=== PATIENT | male | born 1945 | race Caucasian/White ===

== ENCOUNTER 2023-09-26 15:59 | Inpatient (IN) | payer MEDICARE, BC, SELFPAY ==
[2023-09-26] VITALS (13 sets, daily range): BP systolic 57–185; BP diastolic 71–96; BMI 30.8; BMI 29.1
--- NOTE | 2023-09-26 09:41 | ED.GENMED ---
History of Present Illness
<Mohini Daniels SIZING MACHINE OPERATOR - Last Filed: 09/26/23 17:50>
General
Chief Complaint: Breathing Problem
Source: patient and spouse
Exam Limitations: none
Time Seen by Provider: 09/26/23 09:17
Nursing documentation reviewed up to this point in time: agreed with
Travel History
Have you had any contact with someone who has COVID-19?: No
Do you have any symptoms of coronavirus? Fever > 100 degrees, chills, cough, shortness of breath, sore throat, loss of taste or smell, muscle aches, or headache?: No
History of Present Illness
History of Present Illness:
78 yo male with h/o Hyponatremia (on fluid restriction and Na 500 mg daily), HTN, Hypothyroid, Bullous Pemphigoid on chronic steroids (down to 5 mg daily), here for 4 days of increasing SOB and swelling of legs and abdomen, nausea but no vomiting.
Denies CP. Denies fever/chills. Appetite has been good.
One week ago PCP stopped his Prednisone 5 mg and within 24 hours pt felt SOB, nauseous, fatigued so started back on Prednisone 5 mg daily 3 days ago and increasing swelling legs, abdomen with 6 lb weight gain since. Denies abdominal pain. denies
back pain. Denies headache or confusion. Denies joint pain.
Past History
<Mohini Daniels SIZING MACHINE OPERATOR - Last Filed: 09/26/23 17:50>
Past History
ED Past Medical History: HTN, Seizures (Pt had ONE seizure years ago and found to be significantly hyponatremic. Takes Na tablets daily and is water restricted since.), Hypothyroidism and Other (bullous pemphigous.)
ED Past Surgical History: Tonsilectomy
Social History
Tobacco: Former smoker
Alcohol: Occasional
Drug: None
Personal:
Living: with family
Employment: Retired
Family History
Family History: Other (Noncontributory)
Review of Systems
<Mohini V. Frances, SIZING MACHINE OPERATOR - Last Filed: 09/26/23 17:50>
Review of Systems
Allergies reviewed?: Yes
All Other Systems: ROS reviewed and negative except as documented in HPI and ROS
Constitutional: Reports fatigue; Denies fever or chills
EENT: Denies sore throat or other
Respiratory: Reports trouble breathing (dyspnea on exertion worsening past 4 days); Denies cough or hemoptysis
Cardiac: Reports no symptoms
ABD/GI: Reports nausea; Denies abdominal pain (feels bloated), vomiting, diarrhea, constipated, bloody stools, black stools or anorexia
: Reports no symptoms
Musculoskeletal: Reports edema
Skin: Reports no symptoms
Neurological: Reports no symptoms
Phy Exam
<Mohini V. Day, SIZING MACHINE OPERATOR - Last Filed: 09/26/23 17:50>
Physical Exam
Physical Exam:
GENERAL: No acute distress. A&Ox3.
CONSTITUTIONAL: Afebrile.
EYES: Clear, conjunctivae normal
ENMT: moist mucus membranes, Pharynx nl
RESPIRATORY: Regular respirations, nonlabored, lungs clear.
CARDIOVASCULAR: Regular rate and rhythm, no murmurs, no rubs.
GI: Soft, distended, nontender, normal BS
MUSCULOSKELETAL: Moves with ease. Well perfused. Legs are significantly swollen, +2 pitting. Distal neurovascular intact
SKIN: Warm, dry, pink
PSYCH: Normal mood and affect. Well kept, interactive and appropriate
NEUROLOGIC: Awake, alert and oriented. No focal neurological deficits
Scores
<Mohini V. Day, SIZING MACHINE OPERATOR - Last Filed: 09/26/23 17:50>
Heart Failure Risk
Heart Failure Risk Score: Not Applicable
Course
<Mohini V. Day, SIZING MACHINE OPERATOR - Last Filed: 09/26/23 17:50>
Orders/Labs/Results
Orders:
Orders
09/26/23 09:38
IV Insert/Care/Rem.- Treatment PRN
09/26/23 09:39
Electrocardiogram (*1) Stat
Reason for Study: Other
Other Reason for Exam: chest pain
EKG- Treatment ONCE
CR Chest - 2 Views Urgent
Comment:
Reason For Exam: SOB
09/26/23 10:19
Complete Blood Count/With Diff Urgent
Comprehensive Metabolic Panel Urgent
Cortisol, Random Urgent
NT-proBNP Urgent
Troponin I Urgent
09/26/23 13:13
Consult Interventional Radiology [[facility] CONSULT] Urgent
Consulting Provider: Eamon England
Was physician already notified: Yes
Reason for consult: Large L pleural effusion
09/26/23 13:47
[facility] Cytology Routine
Date Specimen was Collected: 09/26/23
Time Specimen was Collected: 14:33
Source: Pleural Fluid, Left
Clinical Impression: Large left pleural effusion hx chronic steroids bullous pemphigoid
hyponatr
History of Malignancy: yes, colon ca
History of Radiation / Chemotherapy: none
09/26/23 14:27
CR Chest Single View Urgent
Comment:
Reason For Exam: s/p left thoracentesis
09/26/23 14:35
Body Fluid Albumin Urgent
Fluid Source: Pleural
Date Specimen was Collected: 09/26/23
Time Specimen was Collected: 14:32
Body Fluid Amylase Routine
Fluid Source: Pleural
Date Specimen was Collected: 09/26/23
Time Specimen was Collected: 14:32
Body Fluid Cell Count Urgent
What is the Body Fluid: pleural fluid
Date Specimen was Collected: 09/26/23
Time Specimen was Collected: 14:32
Body Fluid Glucose Routine
Fluid Source: Pleural
Date Specimen was Collected: 09/26/23
Time Specimen was Collected: 14:32
Body Fluid LDH Urgent
Fluid Source: Pleural
Date Specimen was Collected: 09/26/23
Time Specimen was Collected: 14:32
Body Fluid Protein Routine
Fluid Source: Pleural
Date Specimen was Collected: 09/26/23
Time Specimen was Collected: 14:32
Body Fluid Triglycerides Routine
Fluid Source: Pleural
Date Specimen was Collected: 09/26/23
Time Specimen was Collected: 14:32
Body Fluid pH Routine
Fluid Source: Pleural
Date Specimen was Collected: 09/26/23
Time Specimen was Collected: 14:32
Fluid Culture with Gram Stain Urgent
TERRELL Source: Pleural Fluid
Specimen Description:
Date Specimen was Collected: 09/26/23
Time Specimen was Collected: 14:32
09/26/23 15:34
Admit/Transfer Patient As Directed
Co-Sign Provider:
Level of Care: Inpatient admission
Assign to:: Medical/Surgical
Physician / Group: Catalino Dunbar
Diagnosis: Large Pleural Effusion Hyponatremia
Reason for Hospitalization: Large Pleural Effusion Hyponatremia
Expected length of stay greater than two midnights?: Yes
ELOS- Estimated Length of Stay in days: 2
I certify the patient meets the requirements for IP care: Yes
09/26/23 15:39
Code Status As Directed
Resuscitation Status: Full Code
09/27/23 06:00
Echo 2D MMode Color/Doppler IN AM
Reason for Study: possible heart failure
Abdomen & Abd Doppler US [US Abd W Abd Doppler] IN AM
Comment:
Reason For Exam: possible anasarca cirrhosis
Abnormal Lab Results
09/26/23
10:19
RBC 4.39 L 10^6/uL
(4.70-6.10)
Hct 36.9 L %
(39.0-52.0)
MPV 10.6 H fL
(7.4-10.4)
Abs Immat Gran (auto) 0.1 H 10^3/uL
(0-0.05)
Absolute Neuts (auto) 7.8 H 10^3/uL
(1.4-6.5)
Absolute Lymphs (auto) 0.4 L 10^3/uL
(1.2-3.4)
Absolute Monos (auto) 0.9 H 10^3/uL
(0.1-0.6)
Immature Gran % 1.0 H %
(0-0.5)
Neutrophils % 84.6 H %
(42.2-75.2)
Lymphocytes % 4.0 L %
(20.5-51.1)
Sodium 124 L mmol/L
(135-145)
Chloride 92 L mmol/L
(98-107)
Creatinine 0.6 L mg/dL
(0.7-1.3)
Glucose 107 H mg/dl
(70-99)
09/26/23 10:19
09/26/23 10:19
Vital Signs
Initial and Last Documented VS:
Initial Vital Signs
Temp Pulse Resp BP Pulse Ox
97.8 F 77 18 182/91 95
09/26/23 09:12 09/26/23 09:12 09/26/23 09:12 09/26/23 09:12 09/26/23 09:12
Last Documented Vital Signs
Temp Pulse Resp BP Pulse Ox
97.5 F 68 16 166/87 97
09/26/23 14:02 09/26/23 16:15 09/26/23 16:15 09/26/23 16:00 09/26/23 16:00
<Du Levy MD - Last Filed: 09/26/23 16:35>
Orders/Labs/Results
Orders:
Orders
09/26/23 09:38
IV Insert/Care/Rem.- Treatment PRN
09/26/23 09:39
Electrocardiogram (*1) Stat
Reason for Study: Other
Other Reason for Exam: chest pain
EKG- Treatment ONCE
CR Chest - 2 Views Urgent
Comment:
Reason For Exam: SOB
09/26/23 10:19
Complete Blood Count/With Diff Urgent
Comprehensive Metabolic Panel Urgent
Cortisol, Random Urgent
NT-proBNP Urgent
Troponin I Urgent
09/26/23 13:13
Consult Interventional Radiology [[facility] CONSULT] Urgent
Consulting Provider: Eamon England
Was physician already notified: Yes
Reason for consult: Large L pleural effusion
09/26/23 13:47
[facility] Cytology Routine
Date Specimen was Collected: 09/26/23
Time Specimen was Collected: 14:33
Source: Pleural Fluid, Left
Clinical Impression: Large left pleural effusion hx chronic steroids bullous pemphigoid
hyponatr
History of Malignancy: yes, colon ca
History of Radiation / Chemotherapy: none
09/26/23 14:27
CR Chest Single View Urgent
Comment:
Reason For Exam: s/p left thoracentesis
09/26/23 14:35
Body Fluid Albumin Urgent
Fluid Source: Pleural
Date Specimen was Collected: 09/26/23
Time Specimen was Collected: 14:32
Body Fluid Amylase Routine
Fluid Source: Pleural
Date Specimen was Collected: 09/26/23
Time Specimen was Collected: 14:32
Body Fluid Cell Count Urgent
What is the Body Fluid: pleural fluid
Date Specimen was Collected: 09/26/23
Time Specimen was Collected: 14:32
Body Fluid Glucose Routine
Fluid Source: Pleural
Date Specimen was Collected: 09/26/23
Time Specimen was Collected: 14:32
Body Fluid LDH Urgent
Fluid Source: Pleural
Date Specimen was Collected: 09/26/23
Time Specimen was Collected: 14:32
Body Fluid Protein Routine
Fluid Source: Pleural
Date Specimen was Collected: 09/26/23
Time Specimen was Collected: 14:32
Body Fluid Triglycerides Routine
Fluid Source: Pleural
Date Specimen was Collected: 09/26/23
Time Specimen was Collected: 14:32
Body Fluid pH Routine
Fluid Source: Pleural
Date Specimen was Collected: 09/26/23
Time Specimen was Collected: 14:32
Fluid Culture with Gram Stain Urgent
TERRELL Source: Pleural Fluid
Specimen Description:
Date Specimen was Collected: 09/26/23
Time Specimen was Collected: 14:32
09/26/23 15:34
Admit/Transfer Patient As Directed
Co-Sign Provider:
Level of Care: Inpatient admission
Assign to:: Medical/Surgical
Physician / Group: Catalino Dunbar
Diagnosis: Large Pleural Effusion Hyponatremia
Reason for Hospitalization: Large Pleural Effusion Hyponatremia
Expected length of stay greater than two midnights?: Yes
ELOS- Estimated Length of Stay in days: 2
I certify the patient meets the requirements for IP care: Yes
09/26/23 15:39
Code Status As Directed
Resuscitation Status: Full Code
09/27/23 06:00
Echo 2D MMode Color/Doppler IN AM
Reason for Study: possible heart failure
Abdomen & Abd Doppler US [US Abd W Abd Doppler] IN AM
Comment:
Reason For Exam: possible anasarca cirrhosis
Abnormal Lab Results
09/26/23
10:19
RBC 4.39 L 10^6/uL
(4.70-6.10)
Hct 36.9 L %
(39.0-52.0)
MPV 10.6 H fL
(7.4-10.4)
Abs Immat Gran (auto) 0.1 H 10^3/uL
(0-0.05)
Absolute Neuts (auto) 7.8 H 10^3/uL
(1.4-6.5)
Absolute Lymphs (auto) 0.4 L 10^3/uL
(1.2-3.4)
Absolute Monos (auto) 0.9 H 10^3/uL
(0.1-0.6)
Immature Gran % 1.0 H %
(0-0.5)
Neutrophils % 84.6 H %
(42.2-75.2)
Lymphocytes % 4.0 L %
(20.5-51.1)
Sodium 124 L mmol/L
(135-145)
Chloride 92 L mmol/L
(98-107)
Creatinine 0.6 L mg/dL
(0.7-1.3)
Glucose 107 H mg/dl
(70-99)
09/26/23 10:19
09/26/23 10:19
Vital Signs
Initial and Last Documented VS:
Initial Vital Signs
Temp Pulse Resp BP Pulse Ox
97.8 F 77 18 182/91 95
09/26/23 09:12 09/26/23 09:12 09/26/23 09:12 09/26/23 09:12 09/26/23 09:12
Last Documented Vital Signs
Temp Pulse Resp BP Pulse Ox
97.5 F 68 16 166/87 97
09/26/23 14:02 09/26/23 16:15 09/26/23 16:15 09/26/23 16:00 09/26/23 16:00
<Mohini Daniels, SIZING MACHINE OPERATOR - Last Filed: 09/26/23 17:50>
MDM/Problems Addressed
Differential Diagnosis Includes:
CHF, Steroid withdrawal syndrome, adrenal crisis
Large L Pleural effusion: needs pleuracentesis r/o malignancy
MDM/Problems Addressed:
78 yo male with h/o Hyponatremia (on fluid restriction and Na 500 mg daily), HTN, Hypothyroid, Bullous Pemphigoid on chronic steroids (down to 5 mg daily), here for 4 days of increasing SOB and swelling of legs and abdomen, nausea but no vomiting.
Denies CP. Denies fever/chills. Appetite has been good.
One week ago PCP stopped his Prednisone 5 mg and within 24 hours pt felt SOB, nauseous, fatigued so started back on Prednisone 5 mg daily 3 days ago and increasing swelling legs, abdomen with 6 lb weight gain since. Denies abdominal pain. denies
back pain. Denies headache or confusion. Denies joint pain.
EKG: Sinus bradycardia
09/26/2023 1051 AM
CBC with no clinically significant abnormality
CMP: Sodium 124 otherwise no clinically significant abnormality. Has chronic hyponatremia
Chest x-ray shows a large left pleural effusion.
Patient is hemodynamically stable and in no distress, pulse ox is 97% room air
Plan: Admit to hospitalist, will need IR intervention for pleuracentesis
Hospitalist notified of admission.
09/26/2023 1354 PM
Patient to IR
Dr. Levy wrote orders for fluid evaluation.
09/26/2023 1400 PM
Pt to IR
<Mohini Daniels NP - Last Filed: 09/26/23 17:50>
*Critical Care Note
Total Time (30-74mins, 75-104mins- exclusive of procedures): Not Applicable
ED Attending Note
<Mohini Daniels NP - Last Filed: 09/26/23 17:50>
-
Portions of this chart may have been created with voice recognition software.� Occasional wrong word or��sound alike� substitutions may have occurred due to the inherent limitations of voice recognition software.
<Du Levy MD - Last Filed: 09/26/23 16:35>
ED Attending Note
I performed the substantive portion of visit, reviewed & personally made and approve the management plan that is documented in note by myself or AYDEN.: Yes
ED Attending Note:
History, exam, and chest x-ray concerning for large left-sided pleural effusion, potentially explaining for patient's presenting symptoms. Hyponatremia also noted. Patient will be admitted for further evaluation treatment. [facility] contacted for
diagnostic and therapeutic thoracentesis.
Discharge Plan
Departure
Patient Disposition: Admit
Date of Disposition: 09/26/23
Time of Disposition: 11:03
Presentation/result/management discussed w/ accepting MD/DO: Hospitalist
Condition: Fair
Discharge Problem:
Pleural effusion on left
Interventions
Interventions:
*Risk Screen - Suicide Last Done: 09/26/23 09:49
*General Assessment Last Done: 09/26/23 09:49
*Neglect/Abuse Screening Last Done: 09/26/23 09:49
*ED COVID-19 Vaccine History Last Done: 09/26/23 09:12
ED- Cardiac Assessment Last Done: 09/26/23 09:49
ED- Pulmonary Assessment Last Done: 09/26/23 09:49
[2023-09-26 10:27] LABS: % Basophils 0.6 % (0-2); % Eosinophils 0.6 % (0-6); % Monocytes 9.2 % (1.7-9.3); % Neutrophils 84.6 % (42.2-75.2); Absolute Basophils 0.1 10^3/uL (0-0.2); Absolute Eosinophils 0.1 10^3/uL (0-0.7); Absolute Immature Granulocytes 0.1 10^3/uL (0-0.05); Absolute Lymphocytes 0.4 10^3/uL (1.2-3.4); Absolute Monocytes 0.9 10^3/uL (0.1-0.6); Absolute Neutrophils 7.8 10^3/uL (1.4-6.5); Hematocrit 36.9 % (39.0-52.0); Hemoglobin 13.6 g/dL (13.0-18.0); Mean Corp Hgb Conc. 36.9 g/dL (33.0-37.0); Mean Corpuscular Volume 84.1 fL (80.0-94.0); Mean Platelet Volume 10.6 fL (7.4-10.4); Nucleated Red Blood Cells % 0 % (-); Platelet Count 199 10^3/uL (130-400); Red Blood Cell Count 4.39 10^6/uL (4.70-6.10); Red Cell Dist. Width 13.3 % (11.5-14.5); White Blood Cell Count 9.3 10^3/uL (4.8-10.8)
[2023-09-26 10:39] LABS: ALT (SGPT) 15 U/L (0-50); AST (SGOT) 22 U/L (17-59); Albumin 3.8 g/dl (3.5-5.0); Alkaline Phosphatase 96 U/L (38-126); Blood Urea Nitrogen 9 mg/dl (9-20); Calcium 8.6 mg/dl (8.4-10.2); Carbon Dioxide 23 mmol/L (22-30); Chloride 92 mmol/L (98-107); Estimated Creatinine Clearance 115 ml/min; Glucose 107 mg/dl (70-99); Potassium 4.4 mmol/L (3.5-5.1); Sodium 124 mmol/L (135-145); Total Protein 6.5 g/dl (6.3-8.2); eGFR > 60.00
[2023-09-26 10:52] LABS: NT-proBNP 484 pg/ml; Troponin I 0.025 ng/ml
--- NOTE | 2023-09-26 11:08 | HPS.HSE ---
Family Physician
-
Family Physician: Santiago Garvin
Chief Complaint
-
Shortness of breath
History of Present Illness
78M with h/o Hyponatremia, compliant fluid restriction and Na 500 mg daily, HTN, Hypothyroid, on steroids for the past year d/t Hx WAIHA and later Bullous Pemphigoid presents w/ progressive sob coughing for the past week with associate increase
swelling lower ext's abd and 6 lb weight gain. Patient had recently been tapered off steroid prednisone 5 mg daily prior to onset of symptoms. Steroid was then restarted by pcp however symptoms persisted/worsen prompting presentation to ED.
Denies fever chills diarhea constipation dysuria. Reports some intermittent nausea but denies vomiting. VSS stable on room air. CXR noted large left pleural effusion. Labs also notable hyponatremia 124, baseline 130s, serum osmolality 257
(baseline 250s for patient) urine studies pending. Exam appears consistent with fluid overload heart failure however BNP relatively low 484. Thoracentesis performed by IR yielded 2L. Fluid study consistent with exudate, also noted elevated white
count. Cultures pending.
Medical History
Past Medical History
Past Medical History: Reports Other (as above)
Past Surgical History: Reports Other (as above)
Social History
Tobacco: Non-smoker
Alcohol: Occasional
Drug: None
Personal:
Living: With Family
Employment: Retired
Family History
Family History: Not pertinent (reviewed)
Allergies / Home Medications
Allergies reflects when Allergies were last updated in [facility].
Home Medications with original date entered in [facility]
Allergy/Medication List:
Allergies
Allergy/AdvReac Type Severity Reaction Status Date / Time
amlodipine Allergy Intermediate Unknown Verified 09/26/23 09:13
Home Medications
metoprolol succinate 50 mg tablet,extended release 24 hr 50 mg PO BID Heart disease/condition 03/03/11
levothyroxine 75 mcg tablet 75 mcg PO DAILY Thyroid 12/03/18
sodium chloride 1,000 mg soluble tablet 500 mg PO DAILY #15 tabs 10/30/22
betamethasone dipropionate 0.05 % topical cream 1 applic topical HS apply to chest and B/L sides of abd 09/26/23
folic acid 1 mg tablet 1 mg PO DAILY 09/26/23
prednisone 5 mg tablet 5 mg PO DAILY 09/26/23
torsemide 5 mg tablet 5 mg PO DAILY 09/26/23
Review of Systems
-
A 12 point ROS was completed and negative except as noted: Yes
Constitutional: Reports Other (as below)
Physical Exam
Vital Signs
Vital Signs
Temp Pulse Resp BP Pulse Ox
97.8 F 58 15 165/91 97
09/26/23 09:12 09/26/23 10:15 09/26/23 10:15 09/26/23 09:31 09/26/23 10:15
Physical Exam
General: Other (as below)
Laboratory Results
-
09/26/23 10:19
09/26/23 10:19
Laboratory Results
Total Bilirubin 1.0 mg/dl (0.2-1.3) 09/26/23 10:19
AST 22 U/L (17-59) 09/26/23 10:19
ALT 15 U/L (0-50) 09/26/23 10:19
Alkaline Phosphatase 96 U/L (38-126) 09/26/23 10:19
Troponin I 0.025 ng/ml 09/26/23 10:19
Impression/Plan
-
ROS
General: Denies fever chills night sweats unexpected weight loss
Neuro: Denies seizure shaking loss of consciousness dizziness vertigo
Psych: denies depression hallucinations confusion manic episodes
Endocrine: Denies polyuria polydipsia polyphagia heat/cold intolerance
HEENT: Denies blindness visual disturbances epistaxis
Pulmonary: reports exertional dyspnea cough
Cardiovascular: denies chest pain palpitations reports abd leg swelling
Hematology: denies signs symptoms of anemia easy bruising/bleeding
Gastrointestinal: report nausea denies vomiting diarrhea constipation hematemesis hematochezia melena
Genito-Urinary: denies retention incontinence dysuria
Musculoskeletal: denies joint pain weakness
Dermatology: some scattered rashes from prior hx bullous pemphigoid
Physical Exam
General: No pallor, cyanosis, or jaundice.
HEENT: Throat clear. PERRLA Normocephalic atraumatic
NECK: Supple. No JVD Carotid Bruits
RESPIRATORY: Decreased lower left side breath sounds
CVS: S1, S2 normal. RRR. No murmur, rub or gallop.
ABDOMEN: Soft, non-tender. No distension. BS+/normal.
EXTREMITIES: +2 pitting edema lower ext's
Skin: scattered small areas erythema from prior hx Bullous pemphigoid
IMPLEMENTATION ARCHITECT: AOx3. No focal deficits.
IMPRESSION:
78M with h/o Hyponatremia, compliant fluid restriction and Na 500 mg daily, HTN, Hypothyroid, on steroids for the past year d/t Hx WAIHA and later Bullous Pemphigoid presents w/ progressive sob coughing for the past week with associate increase
swelling lower ext's abd and 6 lb weight gain. Patient had recently been tapered off steroid prednisone 5 mg daily prior to onset of symptoms. Steroid was then restarted by pcp however symptoms persisted/worsen prompting presentation to ED.
Denies fever chills diarhea constipation dysuria. Reports some intermittent nausea but denies vomiting. VSS stable on room air. CXR noted large left pleural effusion. Labs also notable hyponatremia 124, baseline 130s, serum osmolality 257
(baseline 250s for patient) urine studies pending. Exam appears consistent with fluid overload heart failure however BNP relatively low 484. Thoracentesis performed by IR yielded 2L. Fluid study consistent with exudate, also noted elevated white
count. Cultures pending.
PLAN:
#Large Left Pleural Effusion Exudate Unclear Etiology with associate volume overload pitting edema lower ext's abd upper ext past week possible anasarca though protein albumin wnl
IR raul appreciated s/p Thoracentesis 2L 09/26 drawn fluid studies but otherwise no hx fever no white count, infection seems less likely
possible effusion may be due to autoimmune disorder vs heart failure vs malignancy instead
checking blood and fluid cultures procalcitonin legionella antigen strep pneumonia antigen (legionella known to be associated with hyponatremia and could be cause of acute worsening hyponatremia as below)
will empirically cover with ceftriaxone and azithromycin in the meantime
follow pleural fluid cytology
checking CT chest/abd/pelvis with contrast
Pulm raul requested
#Acute on Chronic Hyponatremia
Na 124 baseline 130s
follows nephrology Dr Curiel outpt
Possible Fluid overload new onset HF though relatively low BNP rules against this
will cont fluid restriction salt tablets and trial IV lasix 20 mg BID
home torsemide on hold while on IV diuretics as above
daily weights I/O
Follow up AM ECHO
nephro evclifford requested
#HTN
cont home metoprolol with holding parameters
lasix as above
hydralazine prn
#Hx WAIHA
#Bullous Pemphigoid
cont home prednisone 5 mg daily for now
#Hypothyroid
cont home synthroid
dvt ppx lovenox
gi ppx protonix
meds reconciled and resumed as appropriate
Full Code
discussed with patient and his Melvina
I spent a total of 85 minutes with the patient or on the floor. More than 50% of this time involved counseling and coordination of care.
[2023-09-26 11:10] LABS: Cortisol, Random 10.1 ug/dl
--- NOTE | 2023-09-26 14:28 | W.PN.IRAD.PR ---
Procedure Note
-
DX:Left pleural effusion
Procedure: Left thoracentesis
2000ml of clear yellow fluid removed. Pt tolerated the procedure well. Samples sent to lab for analysis
[2023-09-26 15:12] LABS: Body Fluid pH 7.51
[2023-09-26 15:29] LABS: Body Fluid Mononuclear 98.3 %; Body Fluid Polymorphonuclear 1.7 %; Body Fluid WBC 3528 /CUMM
[2023-09-26 15:30] LABS: Body Fluid Second Tech DB
[2023-09-26 15:32] LABS: Body Fluid Albumin 2.3 g/dl; Body Fluid Amylase < 30 U/L; Body Fluid Glucose 97 mg/dl; Body Fluid LDH 111 U/L; Body Fluid Protein 5.1 g/dl; Body Fluid Triglycerides < 30 mg/dl
[2023-09-26] MEDS: OMNIPAQUE 50 ML PO (18:18)
[2023-09-26 18:19] LABS: Osmolality Serum 257 mOsm/kg (275-300)
[2023-09-26 19:12] LABS: Procalcitonin < 0.05 ng/ml (0.0-0.25)
[2023-09-26] MEDS: LOVENOX 40 MG SC (21:08)
[2023-09-26] MEDS: LASIX 20 MG IV (21:08)
[2023-09-26] MEDS: TOPROL XL 50 MG PO (21:08)
[2023-09-26] MEDS: PROTONIX 40 MG PO (21:08)
[2023-09-26] MEDS: STERILE WATER FOR INJECTION 10 ML IV (21:08)
[2023-09-26] MEDS: ROCEPHIN 1000 MG IV (21:08)
[2023-09-26] MEDS: DIPROSONE CREAM 0.05% 1 APPLIC TOPICAL (21:09)
[2023-09-26] MEDS: ZITHROMAX INFUSION 250 IV (21:28)
[2023-09-26 23:14] LABS: Urine Albumin Negative (Neg - Trace); Urine Bilirubin Negative (Negative); Urine Character Clear (Clear); Urine Color Straw; Urine Glucose Negative (Negative); Urine Ketone Negative (Negative); Urine Leukocyte Negative (Negative); Urine Nitrite Negative (Negative); Urine Occult Blood Negative (Negative); Urine Urobilinogen Negative (Neg - 1+)
[2023-09-26 23:15] LABS: Osmolality Urine 233 mOsm/kg (300-900)
[2023-09-27] VITALS (10 sets, daily range): BP systolic 61–159; BP diastolic 73–90; PULSE 62; O2SAT 96
[2023-09-27 00:01] LABS: Protein/creatinine Ratio 1.3; Urine Protein 10 mg/dl; Urine Sodium 101 mmol/L (30-90)
[2023-09-27 05:39] LABS: Hematocrit 33.3 % (39.0-52.0); Hemoglobin 12.2 g/dL (13.0-18.0); Mean Corp Hgb Conc. 36.6 g/dL (33.0-37.0); Mean Corpuscular Hgb 31.4 pg (27.0-31.0); Mean Corpuscular Volume 85.6 fL (80.0-94.0); Mean Platelet Volume 10.7 fL (7.4-10.4); Platelet Count 202 10^3/uL (130-400); Red Blood Cell Count 3.89 10^6/uL (4.70-6.10); Red Cell Dist. Width 13.2 % (11.5-14.5); White Blood Cell Count 8.4 10^3/uL (4.8-10.8)
[2023-09-27 06:03] LABS: Blood Urea Nitrogen 8 mg/dl (9-20); Calcium 8.2 mg/dl (8.4-10.2); Carbon Dioxide 23 mmol/L (22-30); Chloride 94 mmol/L (98-107); Estimated Creatinine Clearance 101 ml/min; Glucose 87 mg/dl (70-99); Potassium 3.9 mmol/L (3.5-5.1); Sodium 122 mmol/L (135-145); eGFR > 60.00
--- NOTE | 2023-09-27 07:12 | W.PN.HOSP.TC ---
Today's Communication/Plan
-
salt tab lasix as per nephro
monitor Na
discontinue steroids
start Vit D supplementation
Assessment / Plan
Assessment / Plan
Physical Exam
General: No pallor, cyanosis, or jaundice.
HEENT: Throat clear. PERRLA Normocephalic atraumatic
NECK: Supple. No JVD Carotid Bruits
RESPIRATORY: Decreased lower left side breath sounds
CVS: S1, S2 normal. RRR.� No murmur, rub or gallop.
ABDOMEN: Soft, non-tender. No distension. BS+/normal.
EXTREMITIES: +2 pitting edema lower ext's
Skin: scattered small areas erythema from prior hx Bullous pemphigoid
HAY BUCKLER: AOx3. No focal deficits.
IMPRESSION:
78M with h/o Hyponatremia, compliant fluid restriction and Na 500 mg daily, HTN, Hypothyroid, on steroids for the past year d/t Hx WAIHA and later Bullous Pemphigoid presents w/ progressive sob coughing for the past week with associate increase
swelling lower ext's abd and 6 lb weight gain.� Patient had recently been tapered off steroid prednisone 5 mg daily prior to onset of symptoms.� Steroid was then restarted by pcp however symptoms persisted/worsen prompting presentation to ED.�
Denies fever chills diarhea constipation dysuria.� Reports some intermittent nausea but denies vomiting.� VSS stable on room air.� CXR noted large left pleural effusion.� Labs also notable hyponatremia 124, baseline 130s, serum osmolality 257
(baseline 250s for patient) urine studies pending.� Exam appears consistent with fluid overload heart failure however BNP relatively low 484.� Thoracentesis performed by IR yielded 2L.� Fluid study consistent with exudate, also noted elevated white
count.� Cultures pending.�
PLAN:
#Large Left Pleural Effusion Exudate Unclear Etiology with associate volume overload pitting edema lower ext's abd upper ext past week possible anasarca though protein albumin wnl
IR raul appreciated s/p Thoracentesis 2L 09/26 drawn fluid studies but otherwise no hx fever no white count, infection seems less likely
repeat therapeutic thoracentesis 09/27 1600s fluid drawn
possible effusion may be due to autoimmune disorder vs heart failure vs malignancy instead
checking blood and fluid cultures procalcitonin legionella antigen strep pneumonia antigen (legionella known to be associated with hyponatremia and could be cause of acute worsening hyponatremia as below)
will empirically cover with ceftriaxone and azithromycin in the meantime
follow pleural fluid cytology
CT chest/abd/pelvis appreciated
Pulm eval appreciated
#Mild acute pancreatitis as noted on CT, significantly improved from prior imaging
asymptomatic
cont follow up with pcp
#Acute on Chronic Hyponatremia
Na 124 baseline 130s
follows nephrology Dr Curiel outpt
Possible Fluid overload new onset HF though relatively low BNP rules against this
will cont fluid restriction salt tablets and trial IV lasix 20 mg BID
home torsemide on hold while on IV diuretics as above
daily weights I/O
ECHO appreciated preserved EF 55-60% Mild to moderate aortic insufficiency, Mild to moderate tricuspid regurgitation with mild pulmonary hypertension no significant change since the most recent echocardiogram 09/02/2022
nephro eval appreciated salt tab and lasix increased
#HTN
cont home metoprolol with holding parameters
lasix as above
hydralazine prn
#Hx WAIHA
#Bullous Pemphigoid
completed steroid treatment, prednisone was restarted d/t sob soon after discontinuation (found to be due to pleural effusion as above)
steroid discontinued, monitor off
#Ext compression fractures vertebrae as noted in CT, patient very asymptomatic good functional status denies back pain
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
#Vitamin D deficiency
recently completed steroids
vit D supplementation
outpatient follow up with primary care recommended
#Hypothyroid
cont home synthroid
dvt ppx lovenox
gi ppx protonix
meds reconciled and resumed as appropriate
Full Code
discussed with patient and his Melvina
I spent a total of �50� minutes with the patient or on the floor. More than 50% of this time involved counseling and coordination of care.
Anticipated Discharge: 24 - 48 hours
Subjective/Interval History
-
Date of Service: September 27, 2023
Patient reports feeling well. Denies any acute issues including chest pain palpitations shortness of breath.
Objective Data
-
Labs:
Laboratory Results
09/27/23
05:05
WBC 8.4
Hgb 12.2 L
Hct 33.3 L
Plt Count 202
Sodium 122 L
Potassium 3.9
Chloride 94 L
Carbon Dioxide 23
BUN 8 L
Creatinine 0.6 L
Glucose 87
Calcium 8.2 L
Vital Signs:
Vital Signs
Temp Pulse Resp BP Pulse Ox
97.5 F 64 18 147/79 96
09/27/23 04:20 09/27/23 04:20 09/27/23 04:20 09/27/23 04:20 09/27/23 04:20
I&O
09/26/23 09/27/23 09/28/23
06:59 06:59 06:59
Intake Total 730 / 730
Balance 730 / 730
[2023-09-27] MEDS: PROTONIX 40 MG PO (08:11)
[2023-09-27] MEDS: DELTASONE 5 MG PO (08:11)
[2023-09-27] MEDS: SYNTHROID 75 MCG PO (08:11)
[2023-09-27] MEDS: FOLVITE 1 MG PO (08:12)
[2023-09-27] MEDS: SODIUM CHLORIDE 0.5 GRAM PO (08:12)
[2023-09-27] MEDS: TOPROL XL 50 MG PO ×2 (08:16→21:34)
[2023-09-27] MEDS: LASIX 20 MG IV (08:17)
[2023-09-27 11:20] LABS: Lipase 27 U/L (23-300)
[2023-09-27 11:40] LABS: Vitamin D, 25-OH*** 13.2 ng/mL (30-80)
--- NOTE | 2023-09-27 13:23 | CON.PUL ---
Consultation
Consultation Request
Date/Time Consultation Requested: 09-27-23
Date/Time Consultation Performed: 09-27-23
Requesting Provider: Hospitalist
Performing Provider: Dr Rivera
Reason for Consultation: pleural effusion
Medical History
-
Chief Complaint: dyspnea
History of Present Illness:
Mr Santiago Cui is a 78/M adm 09-26 with one wk h/o worsening new onset dyspnea, ac/chronic LORNA edema and 6 lb wt gain.
States he was very active prior to last one week, denies trauma, sick contacts, cough, wheezing, CP.
PMH positive for chronic hyponatremia, HTN, hypothyroidism, warm autoimmune hemolytic anemia/bullous pemphigoid (on chronic CS which have been tapered to 5 mg per day for last 3-4 and finally off for last 1 wk)
Past Medical History
Past Medical History: Other (see A&P for PMH/PSH)
Social History
Tobacco: Non-smoker
Alcohol: Occasional
Drug: None
Personal:
Living: With Family
Employment: Retired
Family History
Family History: Reviewed & Not Pertinent
Allergies / Home Medications
Allergies
Allergy/AdvReac Type Severity Reaction Status Date / Time
amlodipine Allergy Intermediate Unknown Verified 09/26/23 09:13
Home Medications
Medication Instructions Recorded Confirmed Last Taken Type
metoprolol succinate 50 mg 50 mg PO BID Heart 03/03/11 09/26/23 09/26/23 History
tablet,extended release 24 hr disease/condition
levothyroxine 75 mcg tablet 75 mcg PO DAILY AT 0700 Thyroid 12/03/18 09/27/23 09/26/23 History
sodium chloride 1,000 mg soluble 500 mg PO DAILY #15 tabs 10/30/22 09/26/23 09/26/23 Rx
tablet
betamethasone dipropionate 0.05 % 1 applic topical HS apply to chest 09/26/23 09/26/23 09/25/23 History
topical cream and B/L sides of abd
folic acid 1 mg tablet 1 mg PO DAILY Supplement 09/26/23 09/26/23 09/26/23 History
prednisone 5 mg tablet 5 mg PO DAILY Bullous pemphigiod, 09/26/23 09/26/23 09/26/23 History
warm autoimmune hemolytic anemia
torsemide 5 mg tablet 5 mg PO DAILY Fluid 09/26/23 09/26/23 09/25/23 History
Retention/Swelling
Review of Systems
-
History Source: Patient
All other systems: Negative unless noted
Constitutional: Weight Gain
Respiratory: Trouble Breathing
Abdomen/GI: Nausea
Musculoskeletal: Edema (LORNA)
Vitals / Labs / Diagnostic Testing
Vital Signs
Temp Pulse Resp BP Pulse Ox
97.7 F 59 16 143/75 98
09/27/23 11:00 09/27/23 11:00 09/27/23 11:00 09/27/23 11:00 09/27/23 11:00
Lab Data
09/27/23 05:05
09/27/23 05:05
Microbiology
09/26/23 14:35 Pleural Fluid Body Fluid Culture - Preliminary
No Growth After 18-24 Hours
09/26/23 14:35 Pleural Fluid Gram Stain - Preliminary
09/26/23 23:03 Urine Legionella Urinary Antigen - Final
Negative for Legionella pneumophila Serogroup 1 antigen.
A negative result does not rule out the possiblity of
Legionella infection due to other serogroups or species of
Legionella. Clinical correlation is recommended.
09/26/23 23:03 Urine Streptococcus pneumoniae Antigen (M - Final
Negative for Streptococcus pneumoniae antigen.
A negative result does not exclude infection with
Streptococcus pneumoniae. Clinical correlation is
recommended.
Diagnostic Testing:
Physical Exam
-
HEENT: Normocephalic, Moist Mucous Membranes and Thrush (n)
Cardiovascular: Regular Rhythm, Murmur, Peripheral Edema (chronic LORNA), Calf Tenderness (n) and JVD (n)
Respiratory: Non-Labored Respirations and Other (decreased at L base/mid lung)
GI: Soft, Non Distended and Non Tender
Neurology: Awake, AO x 3 and No Motor Deficits
Skin: Dry
General: Respiratory Distress (n)
Assessment
-
Assessment:
Mr Santiago Cui is a 78/M adm 09-26 with one wk h/o worsening dyspnea, LORNA edema and 6 lb wt gain. States he was very active prior to last one week, denies trauma, sick contacts, cough, wheezing, CP. PMH positive for chronic hyponatremia, HTN,
hypothyroidism, warm autoimmune hemolytic anemia/bullous pemphigoid (on chronic CS which have been tapered to 5 mg per day for last 3-4 and finally off for last 1 wk)
Impression:
L pleural effusion: s/p thoracentesis 09-26, 2L clear yellow fluid
Exudate per protein ratio, M predominant at 98%, normal amylase/TG, G stain negative
Normal PCT
Mild liver steatosis, mild recurrent interstitial edematous pancreatitis as c/w January 2022 (CT abd 09-26-23)
Conditions STEREOPTICIAN:
Chronic hyponatremia
On episode of sz during severe hyponatremia years ago
HTN
Hypothyroidism
Trace MR, mild to moderate AR on TTE 09-27-23
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
Bullous pemphigoid
Tonsillectomy
Colon cancer 2019: endoscopic resection on in situ lesion
Chronic multilevel L spine endplate fractures
Nonsmoker
Plan:
On wk h/o JOHNSON
Denies trauma, previous h/o pleural effusion
Not on drugs related to pleural effusion
Controlled hypothyroidism
L pleural effusion: s/p large volume thoracentesis 09-26, 2L clear yellow fluid
No parenchymal abnormalities on CT, but noted chronic calcified LLL nodule and calcified L hilar LNs: no h/o TB exposure
Exudate per protein ratio, M predominant at 98%, normal amylase/TG, G stain negative
Not reported association of h/o hemolytic anemia, bullous pemphigoid or chronic hyponatremia to pleural effusion
No arthritic symptoms
No evidence of HF but only mild to moderate AR
Chest CT post tap revealed large L PF remaining
Per patient no symptoms during 2L tap, confirmed by IRad colleague Dr England
Agreed to repeat large volume L thoracentesis today, repeat cytology (noted M predominant PF, flow cytometry if appropriate), added RF, bilirubin, ADA
Will need close follow up in outpatient setting for repeat thoracentesis as needed as well as consideration for medical thoracoscopy for exploration of L thoracic cavity and parietal pleural biopsies
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
Chronic hyponatremia
Fluid restriction, salt tablets, furosemide
Agrees to follow at [facility] p d/c
Diagnostic tests:
CXR 09-26 pre and post R thoracentesis and Oct 2022: baseline with PF. Current film on adm with large L PF which is mildly improved post tap
Chest CT c/c 09-26- c/w January 2022: new large L sided PF (post tap) with mild mediastinal L-R shift, LLL atelectatic rim. Chronic LLL calcified nodule. Chronic calcified L hilar LNs
--- NOTE | 2023-09-27 15:58 | PTOTSP ---
Pt is functionally independent and at baseline. PT will sign off.
--- NOTE | 2023-09-27 16:01 | CON.MD ---
Consultation - Medical
-
Assessment:
hyponatremia (122) with prior history of seizures with hyponatremia. bl Na around 130s
Large L Pleural Effusion s/p thora
HTN
Bullous pemphigoid
Hx of colon cancer (2019)
Hypothyorid
Plan:
Hyponatremia
- fluid restriction to 1200cc/day
- salt tabs 1g BID and lasix 40mg BID
- recheck Na at 4PM after giving these interventions. if not improving we will consider hypertonic saline
--- NOTE | 2023-09-27 16:12 | CM ---
Alert awake oriented patient who lives with his Melvina who lives in a 2 story home with 2 step to enter and 14 steps to bed and bathroom. He is independent in driving and in all activities of daily living.He was offered VN he declined need.No
adaptive devices
No VN hx / No SNF history
Pharmacy [place]
PCP DR Florez
PLAN Home Declined VN
[2023-09-27 16:31] LABS: Blood Urea Nitrogen 11 mg/dl (9-20); Calcium 8.7 mg/dl (8.4-10.2); Carbon Dioxide 24 mmol/L (22-30); Chloride 91 mmol/L (98-107); Estimated Creatinine Clearance 76 ml/min; Glucose 111 mg/dl (70-99); Potassium 3.8 mmol/L (3.5-5.1); Sodium 124 mmol/L (135-145); eGFR > 60.00
[2023-09-27 16:32] LABS: LDH 140 U/L (120-246)
[2023-09-27] MEDS: LOVENOX 40 MG SC (17:22)
[2023-09-27] MEDS: LASIX 40 MG IV (17:22)
[2023-09-27 17:25] LABS: Body Fluid LDH 210 U/L
[2023-09-27 20:37] LABS: Total Bilirubin 0.9 mg/dl (0.2-1.3)
[2023-09-27] MEDS: SODIUM CHLORIDE 1 GRAM PO (21:34)
[2023-09-27] MEDS: DIPROSONE CREAM 0.05% TOPICAL (22:48)
[2023-09-28 03:20] VITALS: BP 131/72
[2023-09-28 04:39] LABS: Osmolality Urine 402 mOsm/kg (300-900)
[2023-09-28 05:05] LABS: Urine Sodium 61 mmol/L (30-90)
[2023-09-28 05:43] LABS: Hematocrit 35.1 % (39.0-52.0); Hemoglobin 12.5 g/dL (13.0-18.0); Mean Corp Hgb Conc. 35.6 g/dL (33.0-37.0); Mean Corpuscular Hgb 30.5 pg (27.0-31.0); Mean Corpuscular Volume 85.6 fL (80.0-94.0); Mean Platelet Volume 10.5 fL (7.4-10.4); Platelet Count 198 10^3/uL (130-400); Red Cell Dist. Width 13.2 % (11.5-14.5); White Blood Cell Count 9.2 10^3/uL (4.8-10.8)
[2023-09-28 06:00] VITALS: BMI 27.2
[2023-09-28 06:14] LABS: Blood Urea Nitrogen 14 mg/dl (9-20); Calcium 8.1 mg/dl (8.4-10.2); Carbon Dioxide 24 mmol/L (22-30); Chloride 90 mmol/L (98-107); Estimated Creatinine Clearance 87 ml/min; Glucose 101 mg/dl (70-99); Potassium 3.3 mmol/L (3.5-5.1); Sodium 124 mmol/L (135-145); eGFR > 60.00
[2023-09-28] MEDS: SYNTHROID 75 MCG PO (06:29)
--- NOTE | 2023-09-28 07:27 | W.PN.HOSP.TC ---
Today's Communication/Plan
-
monitor and replete electrolytes as necessary
hyponatremia tx as per nephro
Assessment / Plan
Assessment / Plan
Physical Exam
General: No pallor, cyanosis, or jaundice.
HEENT: Throat clear. PERRLA Normocephalic atraumatic
NECK: Supple. No JVD Carotid Bruits
RESPIRATORY: Decreased lower left side breath sounds
CVS: S1, S2 normal. RRR.� No murmur, rub or gallop.
ABDOMEN: Soft, non-tender. No distension. BS+/normal.
EXTREMITIES: +2 pitting edema lower ext's
Skin: scattered small areas erythema from prior hx Bullous pemphigoid
DOOR FITTER: AOx3. No focal deficits.
IMPRESSION:
78M with h/o Hyponatremia, compliant fluid restriction and Na 500 mg daily, HTN, Hypothyroid, on steroids for the past year d/t Hx WAIHA and later Bullous Pemphigoid presents w/ progressive sob coughing for the past week with associate increase
swelling lower ext's abd and 6 lb weight gain.� Patient had recently been tapered off steroid prednisone 5 mg daily prior to onset of symptoms.� Steroid was then restarted by pcp however symptoms persisted/worsen prompting presentation to ED.�
Denies fever chills diarhea constipation dysuria.� Reports some intermittent nausea but denies vomiting.� VSS stable on room air.� CXR noted large left pleural effusion.� Labs also notable hyponatremia 124, baseline 130s, serum osmolality 257
(baseline 250s for patient) urine studies pending.� Exam appears consistent with fluid overload heart failure however BNP relatively low 484.� Thoracentesis performed by IR yielded 2L.� Fluid study consistent with exudate, also noted elevated white
count.� Cultures pending.�
PLAN:
#Large Left Pleural Effusion Exudate Unclear Etiology with associate volume overload pitting edema lower ext's abd upper ext past week possible anasarca though protein albumin wnl
IR eval appreciated s/p Thoracentesis 2L 09/26 drawn fluid studies but otherwise no hx fever no white count, infection seems less likely
repeat therapeutic thoracentesis 09/27 1600s fluid drawn
possible effusion may be due to autoimmune disorder vs heart failure vs malignancy instead
checking blood and fluid cultures procalcitonin legionella antigen strep pneumonia antigen (legionella known to be associated with hyponatremia and could be cause of acute worsening hyponatremia as below)
will empirically cover with ceftriaxone and azithromycin in the meantime
follow pleural fluid cytology
CT chest/abd/pelvis appreciated
Pulm eval appreciated
#Mild acute pancreatitis as noted on CT, significantly improved from prior imaging
asymptomatic
cont follow up with pcp
#Acute on Chronic Hyponatremia
Na 124 baseline 130s
follows nephrology Dr Curiel outpt
Possible Fluid overload new onset HF though relatively low BNP rules against this
will cont fluid restriction salt tablets and trial IV lasix 20 mg BID
home torsemide on hold while on IV diuretics as above
daily weights I/O
ECHO appreciated preserved EF 55-60% Mild to moderate aortic insufficiency, Mild to moderate tricuspid regurgitation with mild pulmonary hypertension no significant change since the most recent echocardiogram 09/02/2022
nephro eval appreciated salt tab and lasix increased, 09/28 samsca attempted lasix held
Hypokalemia
Hypocalcemia
-monitor and replete as necessary
#HTN
cont home metoprolol with holding parameters
lasix as above
hydralazine prn
#Hx WAIHA
#Bullous Pemphigoid
completed steroid treatment, prednisone was restarted d/t sob soon after discontinuation (found to be due to pleural effusion as above)
steroid discontinued, monitor off
#Ext compression fractures vertebrae as noted in CT, patient very asymptomatic good functional status denies back pain
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
#Vitamin D deficiency
recently completed steroids
vit D supplementation
outpatient follow up with primary care recommended
#Hypothyroid
cont home synthroid
dvt ppx lovenox
gi ppx protonix
meds reconciled and resumed as appropriate
Full Code
discussed with patient and his Melvina
I spent a total of �50� minutes with the patient or on the floor. More than 50% of this time involved counseling and coordination of care.
Anticipated Discharge: 24 - 48 hours
Subjective/Interval History
-
Date of Service: September 28, 2023
Appears well ambulating without issues. Denies SOB
Objective Data
-
Labs:
Laboratory Results
09/27/23 09/28/23
16:47 05:17
WBC 9.2
Hgb 12.5 L
Hct 35.1 L
Plt Count 198
Sodium 124 L
Potassium 3.3 L
Chloride 90 L
Carbon Dioxide 24
BUN 14
Creatinine 0.7
Glucose 101 H
Calcium 8.1 L
Total Bilirubin 0.9
Vital Signs:
Vital Signs
Temp Pulse Resp BP Pulse Ox
97.7 F 61 18 131/72 98
09/28/23 03:20 09/28/23 03:20 09/28/23 03:20 09/28/23 03:20 09/28/23 03:20
I&O
09/27/23 09/28/23 09/29/23
06:59 06:59 06:59
Intake Total 730 / 730 840 / 840
Balance 730 / 730 840 / 840
[2023-09-28 08:00] VITALS: BP 139/77
[2023-09-28] MEDS: KCL 40 MEQ PO (09:41)
[2023-09-28] MEDS: PROTONIX 40 MG PO (09:42)
[2023-09-28] MEDS: SODIUM CHLORIDE 1 GRAM PO ×2 (09:43→20:05)
[2023-09-28] MEDS: LASIX 40 MG IV (09:43)
[2023-09-28] MEDS: TOPROL XL 50 MG PO ×2 (09:46→20:06)
[2023-09-28] MEDS: VITAMIN D3 (cholecalciferol) 1000 UNITS PO (09:47)
[2023-09-28] MEDS: CALCIUM GLUCONATE 100 IV (09:47)
[2023-09-28] MEDS: FOLVITE 1 MG PO (09:47)
[2023-09-28 11:10] VITALS: BP 130/85
--- NOTE | 2023-09-28 11:30 | W.PN.PUL3 ---
Today's Communication / Plan
-
Follow L PF results
Pulm chavez ready for d/c
Reconsult prn
Assessment
-
Assessment:
Mr Santiago Cui is a 78/M adm 09-26 with one wk h/o worsening dyspnea, LORNA edema and 6 lb wt gain. States he was very active prior to last one week, denies trauma, sick contacts, cough, wheezing, CP. PMH positive for chronic hyponatremia, HTN,
hypothyroidism, warm autoimmune hemolytic anemia/bullous pemphigoid (on chronic CS which have been tapered to 5 mg per day for last 3-4 and finally off for last 1 wk)
Impression:
L pleural effusion: s/p thoracentesis 09-26, 2L clear yellow fluid
Exudate per protein ratio, M predominant at 98%, normal amylase/TG, G stain negative
Normal PCT
Mild liver steatosis, mild recurrent interstitial edematous pancreatitis as c/w January 2022 (CT abd 09-26-23)
Conditions BUSINESS PROCESS LEAD:
Chronic hyponatremia
On episode of sz during severe hyponatremia years ago
HTN
Hypothyroidism
Trace MR, mild to moderate AR on TTE 09-27-23
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
Bullous pemphigoid
Tonsillectomy
Colon cancer 2019: endoscopic resection on in situ lesion
Chronic multilevel L spine endplate fractures
Nonsmoker
Plan:
On wk h/o JOHNSON
Denies trauma, previous h/o pleural effusion
Not on drugs related to pleural effusion
Controlled hypothyroidism
L pleural effusion: s/p large volume thoracentesis 09-26, 2L clear yellow fluid
No parenchymal abnormalities on CT, but noted chronic calcified LLL nodule and calcified L hilar LNs: no h/o TB exposure
Exudate per protein ratio, M predominant at 98%, normal amylase/TG, G stain negative
Not reported association of h/o hemolytic anemia, bullous pemphigoid or chronic hyponatremia to pleural effusion
No arthritic symptoms
No evidence of HF but only mild to moderate AR
Chest CT post tap revealed large L PF remaining
Per patient no symptoms during 2L tap, confirmed by IRad colleague Dr England
Agreed to repeat large volume L thoracentesis 09-27, repeat cytology (noted M predominant PF, flow cytometry if appropriate), added RF, bilirubin, ADA
Drained 1.65L straw colored PF, tapped to dry (LDH ratio also exudate)
Post tap CXR with resolution of L PF
Will need close follow up in outpatient setting for repeat thoracentesis as needed as well as consideration for medical thoracoscopy for exploration of L thoracic cavity and parietal pleural biopsies if L PF recurs
Chronic LORNA edema, on outpatient torsemide, changed to furosemide IV as inpatient
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
Chronic hyponatremia
Fluid restriction, salt tablets, furosemide
Agrees to follow at [facility] in 1-2 wks post d/c with repeat CXR (PA/lat) prior to visit
Pulm chavez stable for d/c
D/w Mr and Mrs Cui
Diagnostic tests:
CXR 09-26 pre and post R thoracentesis and Oct 2022: baseline with PF. Current film on adm with large L PF which is mildly improved post tap
Chest CT c/c 09-26- c/w January 2022: new large L sided PF (post tap) with mild mediastinal L-R shift, LLL atelectatic rim. Chronic LLL calcified nodule. Chronic calcified L hilar LNs
Subjective Data
-
Date of Service:
Date of Service: September 28, 2023
Chief Complaint: Pulmonary Follow Up
Subjective:
No major events reported overnight
Remains off oxygen, respiratory chavez stable
Wants to go home
Lower extremity edema is improving on increased diuretics
Review of Systems
General: Fever (n), Sweats (n), Chills and Satisfactory Appetite
HEENT: Epistaxis (n), Dysphagia (n) and Choking (n)
Cardiopulmonary: Dyspnea (n), Cough (n) and Chest Pain (n)
GI: Abdominal Pain (n), Nausea (n) and Vomiting (n)
Neuro: Weakness (n)
Objective Data
Data Reviewed
Vital Signs / I&O / Oxygen:
Vital Signs
Temp Pulse Resp BP Pulse Ox
97.4 F 84 20 130/85 97
09/28/23 11:10 09/28/23 11:10 09/28/23 11:10 09/28/23 11:10 09/28/23 11:10
Intake and Output
09/27/23 09/28/23 09/29/23
06:59 06:59 06:59
Intake Total 730 / 730 840 / 840
Balance 730 / 730 840 / 840
SaO2 97
Physical Exam
General: Comfortable
HEENT: Normocephalic and Moist Mucous Membranes
Cardiovascular: Regular Rhythm, Peripheral Edema (LORNA improving) and Calf Tenderness (n)
Respiratory: Clear, Wheeze (n), Rhonchi (n), Non-Labored Respirations and Stridor (n)
GI: Soft, Non Distended and Non Tender
Neurology: Awake, AO x 3 and No Motor Deficits
Skin: Dry
Labs/Micro/Reports
Lab Data
09/28/23 05:17
09/28/23 05:17
Microbiology
09/26/23 18:23 Blood/Venous Blood Culture - Preliminary
No Growth in 24 hours- Final report to follow
09/26/23 18:35 Blood/Venous Blood Culture - Preliminary
No Growth in 24 hours- Final report to follow
09/26/23 14:35 Pleural Fluid Body Fluid Culture - Preliminary
No Growth After 18-24 Hours
09/26/23 14:35 Pleural Fluid Gram Stain - Preliminary
09/26/23 23:03 Urine Legionella Urinary Antigen - Final
Negative for Legionella pneumophila Serogroup 1 antigen.
A negative result does not rule out the possiblity of
Legionella infection due to other serogroups or species of
Legionella. Clinical correlation is recommended.
09/26/23 23:03 Urine Streptococcus pneumoniae Antigen (M - Final
Negative for Streptococcus pneumoniae antigen.
A negative result does not exclude infection with
Streptococcus pneumoniae. Clinical correlation is
recommended.
--- NOTE | 2023-09-28 12:43 | W.PN.NEPH.PH ---
Today's Communication / Plan
-
samsca
cont salt tab and hold PM lasix today
replace k
Assessment/Plan
-
Assessment:
hyponatremia (122) with prior history of seizures with hyponatremia. bl Na around 130s
Large L Pleural Effusion s/p thora
HTN
Bullous pemphigoid
Hx of colon cancer (2019)
Hypothyorid
Autoimmune hemolytic anemia
Plan:
Hyponatremia-ADH mediated , U osmo 402 from lung issues
see euvolemic and BNP is low
cortisol is ok, check TSH in am
will dose samsca today
cont fluid restriction to 1200cc/day
- salt tabs 1g BID and lasix 40mg BID
plan to change to Torsemide 10mg BID at d/c
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
-
-
Date of Service: September 28, 2023
CC / HPI / ROS
-
Chief Complaint:
hyponatremia
History of Present Illness:
sodium improving to 124 s/p salt tab andlasix
BPs table
s/p thoracenetesis of 1.6lit on 09/27
k low at 3.2
Review of Systems:
no cp or sob at rest
feels well
no n/v or pain
Labs
-
Labs:
WBC 9.2 10^3/uL (4.8-10.8) 09/28/23 05:17
RBC 4.10 10^6/uL (4.70-6.10) L 09/28/23 05:17
Hgb 12.5 g/dL (13.0-18.0) L 09/28/23 05:17
Hct 35.1 % (39.0-52.0) L 09/28/23 05:17
Plt Count 198 10^3/uL (130-400) 09/28/23 05:17
Sodium 124 mmol/L (135-145) L 09/28/23 05:17
Potassium 3.3 mmol/L (3.5-5.1) L 09/28/23 05:17
Chloride 90 mmol/L (98-107) L 09/28/23 05:17
Carbon Dioxide 24 mmol/L (22-30) 09/28/23 05:17
BUN 14 mg/dl (9-20) 09/28/23 05:17
Creatinine 0.7 mg/dL (0.7-1.3) 09/28/23 05:17
eGFR > 60.00 09/28/23 05:17
Glucose 101 mg/dl (70-99) H 09/28/23 05:17
Calcium 8.1 mg/dl (8.4-10.2) L 09/28/23 05:17
Yer-F-Pnxclyiamkk Pept 484 pg/ml 09/26/23 10:19
Albumin 3.8 g/dl (3.5-5.0) 09/26/23 10:19
Physical Exam
-
Vital Signs:
Vital Signs
Temp Pulse Resp BP Pulse Ox
97.4 F 84 20 130/85 97
09/28/23 11:10 09/28/23 11:10 09/28/23 11:10 09/28/23 11:10 09/28/23 11:10
Cardiovascular:: Regular rate and rhythm
Respiratory:: Bilateral: CTA
Lung Excursion:: Normal (decreased)
Abdomen:: Nontender and Soft
Extremity Edema:: None: Bilateral: (trace)
Krishnamurthy Catheter: No
[2023-09-28] MEDS: SAMSCA 15 MG PO (13:19)
[2023-09-28 15:00] VITALS: BP 114/72
[2023-09-28] MEDS: LOVENOX 40 MG SC (17:46)
[2023-09-28 19:50] VITALS: BP 120/77
[2023-09-28] MEDS: DIPROSONE CREAM 0.05% 1 APPLIC TOPICAL (23:04)
[2023-09-28 23:10] VITALS: BP 127/64
[2023-09-29 03:00] VITALS: BP 129/68
[2023-09-29 06:00] VITALS: BMI 27.0
[2023-09-29] MEDS: SYNTHROID 75 MCG PO (06:07)
[2023-09-29 07:37] VITALS: BP 132/81
[2023-09-29] MEDS: SODIUM CHLORIDE 1 GRAM PO ×2 (07:41→20:44)
--- NOTE | 2023-09-29 07:41 | W.PN.HOSP.TC ---
Today's Communication/Plan
-
continue treatment hyponatremia as per nephro
Assessment / Plan
Assessment / Plan
Physical Exam
General: No pallor, cyanosis, or jaundice.
HEENT: Throat clear. PERRLA Normocephalic atraumatic
NECK: Supple. No JVD Carotid Bruits
RESPIRATORY: Decreased lower left side breath sounds
CVS: S1, S2 normal. RRR.� No murmur, rub or gallop.
ABDOMEN: Soft, non-tender. No distension. BS+/normal.
EXTREMITIES: +2 pitting edema lower ext's
Skin: scattered small areas erythema from prior hx Bullous pemphigoid
SHOPPER MARKETING MANAGER: AOx3. No focal deficits.
IMPRESSION:
78M with h/o Hyponatremia, compliant fluid restriction and Na 500 mg daily, HTN, Hypothyroid, on steroids for the past year d/t Hx WAIHA and later Bullous Pemphigoid presents w/ progressive sob coughing for the past week with associate increase
swelling lower ext's abd and 6 lb weight gain.� Patient had recently been tapered off steroid prednisone 5 mg daily prior to onset of symptoms.� Steroid was then restarted by pcp however symptoms persisted/worsen prompting presentation to ED.�
Denies fever chills diarhea constipation dysuria.� Reports some intermittent nausea but denies vomiting.� VSS stable on room air.� CXR noted large left pleural effusion.� Labs also notable hyponatremia 124, baseline 130s, serum osmolality 257
(baseline 250s for patient) urine studies pending.� Exam appears consistent with fluid overload heart failure however BNP relatively low 484.� Thoracentesis performed by IR yielded 2L.� Fluid study consistent with exudate, also noted elevated white
count.� Cultures pending.�
PLAN:
#Large Left Pleural Effusion Exudate Unclear Etiology with associate volume overload pitting edema lower ext's abd upper ext past week possible anasarca though protein albumin wnl
IR raul appreciated s/p Thoracentesis 2L 09/26 drawn fluid studies but otherwise no hx fever no white count, infection seems less likely
repeat therapeutic thoracentesis 09/27 1600s fluid drawn
possible effusion may be due to autoimmune disorder vs heart failure vs malignancy instead
checking blood and fluid cultures procalcitonin legionella antigen strep pneumonia antigen (legionella known to be associated with hyponatremia and could be cause of acute worsening hyponatremia as below)
will empirically cover with ceftriaxone and azithromycin in the meantime
follow pleural fluid cytology
CT chest/abd/pelvis appreciated
Pulm eval appreciated
#Mild acute pancreatitis as noted on CT, significantly improved from prior imaging
asymptomatic
cont follow up with pcp
#Acute on Chronic Hyponatremia
Na 124 baseline 130s
follows nephrology Dr Curiel outpt
Possible Fluid overload new onset HF though relatively low BNP rules against this
will cont fluid restriction salt tablets and trial IV lasix 20 mg BID
home torsemide on hold while on IV diuretics as above
daily weights I/O
ECHO appreciated preserved EF 55-60% Mild to moderate aortic insufficiency, Mild to moderate tricuspid regurgitation with mild pulmonary hypertension no significant change since the most recent echocardiogram 09/02/2022
nephro eval appreciated salt tab and lasix increased, 09/28 samsca attempted lasix held 09/29 repeat samsca
Hypokalemia
Hypocalcemia
-monitor and replete as necessary
#HTN
cont home metoprolol with holding parameters
lasix as above
hydralazine prn
#Hx WAIHA
#Bullous Pemphigoid
completed steroid treatment, prednisone was restarted d/t sob soon after discontinuation (found to be due to pleural effusion as above)
steroid discontinued, monitor off
#Ext compression fractures vertebrae as noted in CT, patient very asymptomatic good functional status denies back pain
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
#Vitamin D deficiency
recently completed steroids
vit D supplementation
outpatient follow up with primary care recommended
#Hypothyroid
cont home synthroid
dvt ppx lovenox
gi ppx protonix
meds reconciled and resumed as appropriate
Full Code
discussed with patient and his Melvina
I spent a total of �50� minutes with the patient or on the floor. More than 50% of this time involved counseling and coordination of care.
Anticipated Discharge: 24 - 48 hours
Subjective/Interval History
-
Date of Service: September 29, 2023
no acute distress. ambulating without issues.
Objective Data
-
Labs:
Laboratory Results
09/29/23
07:38
WBC Pending
Hgb Pending
Hct Pending
Plt Count Pending
Sodium Pending
Potassium Pending
Chloride Pending
Carbon Dioxide Pending
BUN Pending
Creatinine Pending
Glucose Pending
Calcium Pending
Vital Signs:
Vital Signs
Temp Pulse Resp BP Pulse Ox
97.6 F 75 16 132/81 98
09/29/23 07:37 09/29/23 07:37 09/29/23 07:37 09/29/23 07:37 09/29/23 07:37
I&O
09/28/23 09/29/23 09/30/23
06:59 06:59 06:59
Intake Total 840 / 840 1530 / 1530
Balance 840 / 840 1530 / 1530
[2023-09-29] MEDS: FOLVITE 1 MG PO (07:42)
[2023-09-29] MEDS: VITAMIN D3 (cholecalciferol) 1000 UNITS PO (07:42)
[2023-09-29] MEDS: TOPROL XL 50 MG PO ×2 (07:42→20:43)
[2023-09-29] MEDS: PROTONIX 40 MG PO (07:42)
[2023-09-29 08:51] LABS: Hematocrit 37.9 % (39.0-52.0); Hemoglobin 13.5 g/dL (13.0-18.0); Mean Corp Hgb Conc. 35.6 g/dL (33.0-37.0); Mean Corpuscular Hgb 31.3 pg (27.0-31.0); Mean Corpuscular Volume 87.7 fL (80.0-94.0); Platelet Count 204 10^3/uL (130-400); Red Blood Cell Count 4.32 10^6/uL (4.70-6.10); Red Cell Dist. Width 13.2 % (11.5-14.5); White Blood Cell Count 8.5 10^3/uL (4.8-10.8)
[2023-09-29 09:27] LABS: Blood Urea Nitrogen 14 mg/dl (9-20); Calcium 8.8 mg/dl (8.4-10.2); Carbon Dioxide 25 mmol/L (22-30); Chloride 93 mmol/L (98-107); Estimated Creatinine Clearance 87 ml/min; Glucose 90 mg/dl (70-99); Magnesium 2.2 mg/dl (1.6-2.3); Potassium 3.6 mmol/L (3.5-5.1); Sodium 129 mmol/L (135-145); eGFR > 60.00
[2023-09-29 11:30] VITALS: BP 142/71
--- NOTE | 2023-09-29 16:33 | W.PN.NEPH.PH ---
Today's Communication / Plan
-
samsca again
Assessment/Plan
-
Assessment:
hyponatremia (122) with prior history of seizures with hyponatremia. bl Na around 130s
Large L Pleural Effusion s/p thora
HTN
Bullous pemphigoid
Hx of colon cancer (2019)
Hypothyorid
Autoimmune hemolytic anemia
Plan:
Hyponatremia-ADH mediated , U osmo 402 from lung issues
see euvolemic and BNP is low
cortisol is ok, check TSH in am
sodium better s/p samsca 09/28
will dose samsca again today
cont fluid restriction to 1200cc/day
- salt tabs 1g BID and lasix 40mg BID
plan to change to Torsemide 10mg BID at d/c
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
-
-
Date of Service: September 29, 2023
CC / HPI / ROS
-
Chief Complaint:
hyponatremia
History of Present Illness:
sodium improving to 129 s/p samsca, salt tab and lasix
BPs table
s/p thoracenetesis of 1.6lit on 09/27
k low at 3.6
Review of Systems:
no cp or sob at rest
feels well
no n/v or pain
Labs
-
Labs:
WBC 8.5 10^3/uL (4.8-10.8) 09/29/23 07:38
RBC 4.32 10^6/uL (4.70-6.10) L 09/29/23 07:38
Hgb 13.5 g/dL (13.0-18.0) 09/29/23 07:38
Hct 37.9 % (39.0-52.0) L 09/29/23 07:38
Plt Count 204 10^3/uL (130-400) 09/29/23 07:38
Sodium 129 mmol/L (135-145) L 09/29/23 07:38
Potassium 3.6 mmol/L (3.5-5.1) 09/29/23 07:38
Chloride 93 mmol/L (98-107) L 09/29/23 07:38
Carbon Dioxide 25 mmol/L (22-30) 09/29/23 07:38
BUN 14 mg/dl (9-20) 09/29/23 07:38
Creatinine 0.7 mg/dL (0.7-1.3) 09/29/23 07:38
eGFR > 60.00 09/29/23 07:38
Glucose 90 mg/dl (70-99) 09/29/23 07:38
Calcium 8.8 mg/dl (8.4-10.2) 09/29/23 07:38
Xvk-L-Kmviquzphgd Pept 484 pg/ml 09/26/23 10:19
Albumin 3.8 g/dl (3.5-5.0) 09/26/23 10:19
Physical Exam
-
Vital Signs:
Vital Signs
Temp Pulse Resp BP Pulse Ox
97.4 F 57 16 142/71 98
09/29/23 11:30 09/29/23 11:30 09/29/23 11:30 09/29/23 11:30 09/29/23 11:30
Cardiovascular:: Regular rate and rhythm
Respiratory:: Bilateral: CTA
Lung Excursion:: Normal
Abdomen:: Nontender and Soft
Extremity Edema:: +1: Bilateral:
Krishnamurthy Catheter: No
[2023-09-29] MEDS: SAMSCA 30 MG PO (17:36)
[2023-09-29] MEDS: LOVENOX 40 MG SC (17:36)
[2023-09-29 19:55] VITALS: BP 141/72
[2023-09-29] MEDS: DIPROSONE CREAM 0.05% 1 APPLIC TOPICAL (20:44)
[2023-09-29 23:00] VITALS: BP 126/70
[2023-09-30 03:55] VITALS: BP 137/66
[2023-09-30 04:46] VITALS: BMI 27.1
[2023-09-30] MEDS: SYNTHROID 75 MCG PO (05:50)
[2023-09-30 07:00] VITALS: BP 125/70
[2023-09-30 07:01] LABS: Hematocrit 39.2 % (39.0-52.0); Hemoglobin 13.8 g/dL (13.0-18.0); Mean Corp Hgb Conc. 35.2 g/dL (33.0-37.0); Mean Corpuscular Hgb 30.6 pg (27.0-31.0); Mean Corpuscular Volume 86.9 fL (80.0-94.0); Mean Platelet Volume 10.8 fL (7.4-10.4); Platelet Count 228 10^3/uL (130-400); Red Blood Cell Count 4.51 10^6/uL (4.70-6.10); Red Cell Dist. Width 13.5 % (11.5-14.5); White Blood Cell Count 9.5 10^3/uL (4.8-10.8)
[2023-09-30 07:16] LABS: Blood Urea Nitrogen 14 mg/dl (9-20); Calcium 8.7 mg/dl (8.4-10.2); Carbon Dioxide 26 mmol/L (22-30); Chloride 99 mmol/L (98-107); Estimated Creatinine Clearance 76 ml/min; Glucose 92 mg/dl (70-99); Magnesium 2.3 mg/dl (1.6-2.3); Potassium 4.1 mmol/L (3.5-5.1); Sodium 130 mmol/L (135-145); eGFR > 60.00
--- NOTE | 2023-09-30 07:27 | W.PN.HOSP.TC ---
Today's Communication/Plan
-
discharge
Assessment / Plan
Assessment / Plan
Physical Exam
General: No pallor, cyanosis, or jaundice.
HEENT: Throat clear. PERRLA Normocephalic atraumatic
NECK: Supple. No JVD Carotid Bruits
RESPIRATORY: Decreased lower left side breath sounds
CVS: S1, S2 normal. RRR.� No murmur, rub or gallop.
ABDOMEN: Soft, non-tender. No distension. BS+/normal.
EXTREMITIES: +1 pitting edema lower ext's
Skin: scattered small areas erythema from prior hx Bullous pemphigoid resolving
WATCH AND CLOCK REPAIR CLERK: AOx3. No focal deficits.
IMPRESSION:
78M with h/o Hyponatremia, compliant fluid restriction and Na 500 mg daily, HTN, Hypothyroid, on steroids for the past year d/t Hx WAIHA and later Bullous Pemphigoid presents w/ progressive sob coughing for the past week with associate increase
swelling lower ext's abd and 6 lb weight gain.� Patient had recently been tapered off steroid prednisone 5 mg daily prior to onset of symptoms.� Steroid was then restarted by pcp however symptoms persisted/worsen prompting presentation to ED.�
Denies fever chills diarhea constipation dysuria.� Reports some intermittent nausea but denies vomiting.� VSS stable on room air.� CXR noted large left pleural effusion.� Labs also notable hyponatremia 124, baseline 130s, serum osmolality 257
(baseline 250s for patient) urine studies pending.� Exam appears consistent with fluid overload heart failure however BNP relatively low 484.� Thoracentesis performed by IR yielded 2L.� Fluid study consistent with exudate, also noted elevated white
count.� Cultures pending.�
PLAN:
#Large Left Pleural Effusion Exudate Unclear Etiology with associate volume overload pitting edema lower ext's abd upper ext past week possible anasarca though protein albumin wnl
IR raul appreciated s/p Thoracentesis 2L 09/26 drawn fluid studies but otherwise no hx fever no white count, infection seems less likely
repeat therapeutic thoracentesis 09/27 1600s fluid drawn
possible effusion may be due to autoimmune disorder vs heart failure vs malignancy instead
checking blood and fluid cultures procalcitonin legionella antigen strep pneumonia antigen (legionella known to be associated with hyponatremia and could be cause of acute worsening hyponatremia as below)
will empirically cover with ceftriaxone and azithromycin in the meantime
follow pleural fluid cytology
CT chest/abd/pelvis appreciated
Pulm eval appreciated
#Mild acute pancreatitis as noted on CT, significantly improved from prior imaging
asymptomatic
cont follow up with pcp
#Acute on Chronic Hyponatremia
Na 124 baseline 130s
follow[address] neph[address] Dr Curiel outpt
Possible Fluid overload new onset HF though relatively low BNP rules against this
will cont fluid restriction salt tablets and trial IV lasix 20 mg BID
home torsemide on hold while on IV diuretics as above
daily weights I/O
ECHO appreciated preserved EF 55-60% Mild to moderate aortic insufficiency, Mild to moderate tricuspid regurgitation with mild pulmonary hypertension no significant change since the most recent echocardiogram 09/02/2022
nephro eval appreciated salt tab and lasix increased, 09/28 samsca attempted lasix held 09/29 repeat samsca subsequently improved to 130
salt tab 1 g BID and Torsemide 10 mg BID on d/c
Hypokalemia
Hypocalcemia
-monitor and replete as necessary
#HTN
cont home metoprolol with holding parameters
lasix as above
hydralazine prn
#Hx WAIHA
#Bullous Pemphigoid
completed steroid treatment, prednisone was restarted d/t sob soon after discontinuation (found to be due to pleural effusion as above)
steroid discontinued, monitor off
#Ext compression fractures vertebrae as noted in CT, patient very asymptomatic good functional status denies back pain
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
#Vitamin D deficiency
recently completed steroids
vit D supplementation
outpatient follow up with primary care recommended
#Hypothyroid
cont home synthroid
dvt ppx lovenox
gi ppx protonix
meds reconciled and resumed as appropriate
Full Code
Medically stable for discharge home with outpatient follow up recommendations
discussed with patient and his Melvina
Total Time Preparing Discharge ___50____ minutes including examination of the patient, summary of the hospital stay, instructions for continuing care to all relevant caregivers; and preparation of discharge records, prescriptions, and referral
forms if necessary.
Anticipated Discharge: Today
Subjective/Interval History
-
Date of Service: September 30, 2023
Reports feeling well. Denies new acute issues at this time. Eager to go home. present during evaluation.
Objective Data
-
Labs:
Laboratory Results
09/30/23
05:58
WBC Pending
Hgb Pending
Hct Pending
Plt Count Pending
Sodium 130 L
Potassium 4.1
Chloride 99
Carbon Dioxide 26
BUN 14
Creatinine 0.8
Glucose 92
Calcium 8.7
Vital Signs:
Vital Signs
Temp Pulse Resp BP Pulse Ox
97.2 F 56 16 137/66 98
09/30/23 03:55 09/30/23 03:55 09/30/23 03:55 09/30/23 03:55 09/30/23 03:55
I&O
09/29/23 09/30/23 10/01/23
06:59 06:59 06:59
Intake Total 1530 / 1530 760 / 760 100 / 100
Balance 1530 / 1530 760 / 760 100 / 100
[2023-09-30] MEDS: FOLVITE 1 MG PO (08:52)
[2023-09-30] MEDS: VITAMIN D3 (cholecalciferol) 1000 UNITS PO (08:52)
[2023-09-30] MEDS: TOPROL XL 50 MG PO (08:52)
[2023-09-30] MEDS: SODIUM CHLORIDE 1 GRAM PO (08:52)
[2023-09-30] MEDS: PROTONIX 40 MG PO (08:52)
--- NOTE | 2023-09-30 11:39 | W.DCSUMMARY ---
Discharge Summary
Discharge Data
Date of Admission: 09/26/23
Date of Discharge: 09/30/23
-
Pending Results: Yes
Additional Pending Results:
cytology results from pleural effusion
Hospital Course
78M with h/o Hyponatremia, compliant fluid restriction and salt tab 500 mg daily, HTN, Hypothyroid, on steroids for the past year d/t Hx WAIHA and later Bullous Pemphigoid presents w/ progressive sob coughing for the past week with associate
increase swelling lower ext's abd and 6 lb weight gain.� Patient had recently been tapered off steroid prednisone 5 mg daily prior to onset of symptoms.� Steroid was then restarted by pcp however symptoms persisted/worsen prompting presentation to
ED.� Denies fever chills diarrhea constipation dysuria.� Reported some intermittent nausea but denied vomiting.� VSS stable on room air.� CXR noted large left pleural effusion.� Labs also notable hyponatremia 124, baseline 130s, serum osmolality 257
(baseline 250s for patient) urine studies pending.� Exam appeared consistent with fluid overload heart failure however BNP relatively low 484.� Thoracentesis performed by IR yielded 2L.� Fluid study consistent with exudate, also noted elevated white
count.� Cultures NGTD. Large Left Pleural Effusion Exudate Unclear Etiology with associate volume overload pitting edema lower ext's abd upper ext past week possible anasarca though protein albumin wnl. IR eval appreciated s/p Thoracentesis 2L
09/26 drawn fluid studies but otherwise no hx fever no white count, infection unlikely. Repeat therapeutic thoracentesis performed 09/27 1600s fluid drawn. Possible effusion may be due to autoimmune disorder vs heart failure vs malignancy.
Patient was empirically covered with ceftriaxone and azithromycin. This was soon discontinued following negative procalcitonin. Mild acute pancreatitis was noted on CT, significantly improved from prior imaging, asymptomatic, cont follow up with
pcp was recommended. Acute on Chronic Hyponatremia, Na 124 baseline 130s, ECHO appreciated preserved EF 55-60% Mild to moderate aortic insufficiency, Mild to moderate tricuspid regurgitation with mild pulmonary hypertension no significant change
since the most recent echocardiogram 09/02/2022. Nephro evaluated and provided samsca as needed for two days, Na subsequently improved to 130. Patient was recommended to increase salt tab to 1 g BID and Torsemide to 10 mg BID on d/c. Ext
compression fractures vertebrae were also noted on CT, patient very asymptomatic good functional status denies back pain. Likely osteoporosis 2/2 chronic steroid use. Vitamin D deficiency was also noted. Vit D supplementation was started.
Medically stable, patient was discharged home with outpatient follow up recommendations.
Discharge Plan
-
Patient Disposition: Home (Routine Discharge)
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
asymptomatic, mild acute interstitial edematous pancreatitis asymptomatic involving the pancreatic head which is less severe than on imaging 01/18/2022, Hypothyroidism, Hypertension
Condition: Good
Additional Diets: 40 oz fluid restriction
Activity: As tolerated
Driving Restrictions: As prior to admission
Bathing Restrictions: None
Blood Work: Please repeat BMP in 3-4 days with results to be forwarded to your primary care provider and home visitor home base head start, a script has been provided to facilitate.
Please repeat Vitamin D level with primary care provider in 1 month of discharge.
Others Tests: Please repeat Chest X-ray with primary care provider in 1 week of discharge
Stop these medications:: Prednisone has been discontinued as it is no longer necessary at this time. Please follow up with primary care provider and/or other healthcare provider involved in your care before considering to resume.
Activity Restrictions/Additional Instructions:
Please follow up with primary care provider in 1 week of discharge, pulmonology in 1-2 weeks of discharge, and nephrology and GI in 2-4 weeks of discharge.
For hyponatremia salt tablet has been increased to 1 g twice a day and torsemide has been increased to 10 mg twice a day.
Vitamin D supplementation has been prescribed for Vit D deficiency
Please take medications/supplements as prescribed/recommended and follow up with your primary care provider and/or other healthcare provider involved in your care for refills and/or further adjustments to your medication regimen as necessary.
Instructions: Pleural Effusion (DC), Hyponatremia (DC)
Referrals:
Waqas Curiel DO [Active] - in two to four weeks
Warren Rivera MD [Active] - in one to two weeks (New patient, large L pleural effusion, exudate, tapped twice. See in 1-2 wks with CXR PA/lat)
Luz Isbell DO [Active] - in two to four weeks
Santiago Garvin DO [Family Provider] - in one week
Prescriptions:
New
torsemide 10 mg tablet
10 mg PO BID 30 Days Qty: 60 0RF
cholecalciferol (vitamin D3) 25 mcg (1,000 unit) Tablet
1,000 unit PO DAILY 30 Days Qty: 30 0RF
Continued
metoprolol succinate 50 MG tablet extended release 24 hr
50 mg PO BID
levothyroxine 75 MCG tablet
75 mcg PO DAILY AT 0700
betamethasone dipropionate 0.05 % Cream
1 applic TOPICAL HS
folic acid 1 mg tablet
1 mg PO DAILY
Changed
sodium chloride 1,000 mg tablet,soluble
1,000 mg PO BID 30 Days Qty: 60 0RF
Discontinued
prednisone 5 mg Tablet
5 mg PO DAILY
torsemide 5 mg Tablet
5 mg PO DAILY
Discharge Orders:
Discharge Patient (As Directed); Ordered 09/30/23
Ordered By: Catalino Dunbar
Discharge Date and Time
Discharge Date/Time: 09/30/23 14:07
--- NOTE | 2023-09-30 12:03 | CM ---
CM following re: discharge planning.
Reviewed pt's chart, met with pt and pt's spouse at bedside.
Discharge order noted. Pt is aware, expressed his agreement with discharge. IMM reviewed, placed ion chart, pt has a copy. Pt reports he dose no need any after care VN services and spouse is here to transport home.
PT and OT evaluations noted - pt has no skilled needs.
D/C plan: home no needs. Spouse to transport
--- NOTE | 2023-09-30 12:24 | W.PN.NEPH.PH ---
Today's Communication / Plan
-
ok for d/c
d/w primary
Assessment/Plan
-
Assessment:
hyponatremia (122) with prior history of seizures with hyponatremia. bl Na around 130s
Large L Pleural Effusion s/p thora
HTN
Bullous pemphigoid
Hx of colon cancer (2019)
Hypothyorid
Autoimmune hemolytic anemia
Plan:
Hyponatremia-ADH mediated , U osmo 402 from lung issues
see euvolemic and BNP is low
cortisol is ok,
sodium better s/p samsca 09/28, 09/29
cont fluid restriction to 1200cc/day
At d/c- salt tabs 1g BID and Torsemide 10mg BID
BMP in 3-4days
f/u Dr Curiel as scheduled in Oct
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
-
-
Date of Service: September 30, 2023
CC / HPI / ROS
-
Chief Complaint:
hyponatremia
History of Present Illness:
sodium improving to 130 s/p samsca, salt tab and lasix
BPs table
s/p thoracenetesis of 1.6lit on 09/27, total 3.6lit in few days
k better at 4.1
Review of Systems:
no cp or sob at rest
feels well
no n/v or pain
Labs
-
Labs:
WBC 9.5 10^3/uL (4.8-10.8) 09/30/23 05:58
RBC 4.51 10^6/uL (4.70-6.10) L 09/30/23 05:58
Hgb 13.8 g/dL (13.0-18.0) 09/30/23 05:58
Hct 39.2 % (39.0-52.0) 09/30/23 05:58
Plt Count 228 10^3/uL (130-400) 09/30/23 05:58
Sodium 130 mmol/L (135-145) L 09/30/23 05:58
Potassium 4.1 mmol/L (3.5-5.1) 09/30/23 05:58
Chloride 99 mmol/L (98-107) 09/30/23 05:58
Carbon Dioxide 26 mmol/L (22-30) 09/30/23 05:58
BUN 14 mg/dl (9-20) 09/30/23 05:58
Creatinine 0.8 mg/dL (0.7-1.3) 09/30/23 05:58
eGFR > 60.00 09/30/23 05:58
Glucose 92 mg/dl (70-99) 09/30/23 05:58
Calcium 8.7 mg/dl (8.4-10.2) 09/30/23 05:58
Vaz-K-Rrlgrgbrsar Pept 484 pg/ml 09/26/23 10:19
Albumin 3.8 g/dl (3.5-5.0) 09/26/23 10:19
Physical Exam
-
Vital Signs:
Vital Signs
Temp Pulse Resp BP Pulse Ox
97.4 F 55 18 125/70 98
09/30/23 07:00 09/30/23 08:52 09/30/23 07:00 09/30/23 08:52 09/30/23 07:00
Cardiovascular:: Regular rate and rhythm
Respiratory:: Bilateral: CTA (decreased)
Lung Excursion:: Normal
Abdomen:: Nontender and Soft
Extremity Edema:: None: Bilateral:
Krishnamurthy Catheter: No
== END 2023-09-30 14:07 | disposition home or self-care (01) | DRG 187 ==
LOC: 3 WEST ACU 15:59
PROVIDERS: Radiology Vascular & Interventional Radiology; Registered Nurse; ADMITTING PHYSICIAN Internal Medicine; CONSULT PHYSICIAN Student in an Organized Health Care Education/Training Program; EMERGENCY PHYSICIAN Emergency Medicine; FAMILY PHYSICIAN Internal Medicine; OTHER PHYSICIAN Internal Medicine Pulmonary Disease
PROC: 0W9B3ZX Drainage of Left Pleural Cavity, Percutaneous Approach, Diagnostic (ICD-10-PCS; 2023-09-26)
DX: J90 Pleural effusion, not elsewhere classified (principal); D59.11 Warm autoimmune hemolytic anemia; E87.1 Hypo-osmolality and hyponatremia; L12.0 Bullous pemphigoid; E03.9 Hypothyroidism, unspecified; I27.20 Pulmonary hypertension, unspecified; E55.9 Vitamin D deficiency, unspecified; E87.6 Hypokalemia; M81.8 Other osteoporosis without current pathological fracture; M48.061 Spinal stenosis, lumbar region without neurogenic claudication; T38.0X5A Adverse effect of glucocorticoids and synthetic analogues, initial encounter; I10 Essential (primary) hypertension; E87.70 Fluid overload, unspecified
CPT/HCPCS: 88305; 32555; 71045; 71046; 71260; 74177; 80048; 80053; 81003; 82042; 82150; 82247; 82306; 82533; 82570; 82945; 83615; 83690; 83735; 83880; 83930; 83935; 83986; 84145; 84156; 84157; 84300; 84478; 84484; 85025; 85027; 87015; 87040; 87070; 87205; 87449; 87899; 88112; 88341; 88342; 89051; 93005; 93306; 97161; 99285; Q9967

== ENCOUNTER 2023-10-08 18:15 | Inpatient (IN) | payer MEDICARE, BC, SELFPAY ==
[2023-10-08 14:31] VITALS: BP 122/70
--- NOTE | 2023-10-08 16:17 | ED.GENMED ---
History of Present Illness
General
Chief Complaint: Abnormal Lab Value
Source: patient and spouse
Exam Limitations: none
Time Seen by Provider: 10/08/23 16:05
Nursing documentation reviewed up to this point in time: agreed with
Travel History
Have you had any contact with someone who has COVID-19?: No
Do you have any symptoms of coronavirus? Fever > 100 degrees, chills, cough, shortness of breath, sore throat, loss of taste or smell, muscle aches, or headache?: No
History of Present Illness
History of Present Illness:
Patient presents to ED for evaluation after outpatient chest x-ray revealed recurrent large left pleural effusion. Patient was recently admitted to the hospital and required to separate thoracentesis procedure for left pleural effusion. Patient
otherwise has no complaints. Denies fever. Denies chills. Denies chest pain. Denies coughing. Denies shortness of breath. Denies weight gain. Denies loss of appetite.
Past History
Past History
ED Past Medical History: HTN, Seizures (Pt had ONE seizure years ago and found to be significantly hyponatremic. Takes Na tablets daily and is water restricted since.), Hypothyroidism and Other (bullous pemphigous.)
ED Past Surgical History: Tonsilectomy
Social History
Tobacco: Former smoker
Alcohol: Occasional
Drug: None
Personal:
Living: with family
Employment: Retired
Family History
Family History: Other (Noncontributory)
Review of Systems
Review of Systems
Allergies reviewed?: Yes
All Other Systems: ROS reviewed and negative except as documented in HPI and ROS
Constitutional: Reports no symptoms
EENT: Reports no symptoms
Respiratory: Reports no symptoms
Cardiac: Reports no symptoms
ABD/GI: Reports no symptoms
Musculoskeletal: Reports edema
Skin: Reports no symptoms
Neurological: Reports no symptoms
Phy Exam
Physical Exam
Physical Exam:
Physical Exam
General: no apparent distress, not acutely ill. afebrile
Head: nc/at. eomi
Neck: supple. no meningeal signs.
Heart: s1/s2 regular rate and rhythm, no murmur. equal radial pulses.
Lungs: no acute respiratory distress. clear bilaterally
Abdomen: normal bowel sounds. not tender.
Neuro: alert and oriented. no focal neurological deficits
Skin: no rash
Psychiatric: well kept. interactive and cooperative
Extremities: LE b/l edema. no calf tenderness.
Course
Orders/Labs/Results
Orders:
Orders
10/08/23 Dinner
Cholesterol Lowering
At Your Request: Full Participation
Fluid Restriction: 1200 mL/day (40 oz)
Cholesterol Lowering: Sodium, 2 Gram
10/08/23 17:47
Urine Osmolality Random [Osmolality, Random Urine] Routine
Urine Sodium Routine
10/08/23 17:48
Admit/Transfer Patient As Directed
Co-Sign Provider:
Level of Care: Inpatient admission
Assign to:: Telemetry
Physician / Group: little velázquez
Diagnosis: Lg left plueral effusion, anemia, hyponatremia
Reason for Telemetry: Arrhythmia
Date to Stop Telemetry: 10/11/23
Time to Stop Telemetry: 11:00
Reason for Hospitalization: Lg left plueral effusion, anemia, hyponatremia
Expected length of stay greater than two midnights?: Yes
ELOS- Estimated Length of Stay in days: 3
I certify the patient meets the requirements for IP care: Yes
Code Status As Directed
Resuscitation Status: Full Code
10/08/23 17:58
Bumetanide [Bumex] 1 mg IV NOW STA
10/08/23 19:29
Enoxaparin Sodium [Lovenox] 40 mg SC QPM
10/08/23 19:29
IRAD CONSULT Routine
Consulting Provider: Eamon England
Was physician already notified: Yes
Reason for consult: recurrent left plueral effusion
Acid Fast Culture & Smear Routine
TERRELL Source: Pleural Fluid
Specimen Description:
Comment: post procedure
Body Fluid Amylase Routine
Fluid Source: Pleural
Body Fluid Cell Count Routine
What is the Body Fluid: pleural fluid
Comment: post procedure
Body Fluid Glucose Routine
Fluid Source: Pleural
Body Fluid LDH Routine
Fluid Source: Pleural
Body Fluid Protein Routine
Fluid Source: Pleural
Body Fluid Triglycerides Routine
Fluid Source: Pleural
Body Fluid pH Routine
Fluid Source: Pleural
Fluid Culture with Gram Stain Routine
TERRELL Source: Pleural Fluid
Specimen Description:
Comment: post procedure
Fungus Culture Routine
TERRELL Source: Pleural Fluid
Specimen Description:
Fungus Smear Routine
TERRELL Source: Pleural Fluid
Specimen Description:
Gram Stain Routine
TERRELL Source: Pleural Fluid
Specimen Description:
Comment: POST PROCEDURE
Activity As Directed
Activity Level: As Tolerated
Intake/ Output As Directed
Frequency: Per unit guidelines
Vital Signs As Directed
Frequency: Per unit guidelines
Weight As Directed
Frequency: Daily
IRAD Cytology Routine
Source: Pleural Fluid, Left
Clinical Impression: volume overload
Ot Eval And Treat Routine
Pt Eval And Treat Routine
Activity Level: As Tolerated
DX Deep Vein Thrombosis Video Routine
10/08/23 20:00
Metoprolol Xl [Toprol Xl] 50 mg PO BID
Sodium Chloride 1 gram PO BID
10/08/23 23:00
Type+Screen Urgent
10/09/23 06:00
Basic Metabolic Panel IN AM
Complete Blood Count/With Diff IN AM
10/09/23 07:00
Levothyroxine [Synthroid] 75 mcg PO DAILY AT 0700
10/09/23 08:00
Cholecalciferol (Vitamin D3) [VITAMIN D3 (cholecalciferol)] 25 mcg PO DAILY
FOLic ACID [Folvite] 1 mg PO DAILY
Torsemide [Demadex] 10 mg PO BID AT 0800,1600
10/10/23 06:00
Basic Metabolic Panel IN AM
Complete Blood Count/With Diff IN AM
10/11/23 06:00
Basic Metabolic Panel IN AM
Complete Blood Count/With Diff IN AM
10/11/23 11:00
DC Protocol for Telemetry ONCE
Vital Signs
Initial and Last Documented VS:
Initial Vital Signs
Temp Pulse Resp BP Pulse Ox
98.4 F 87 18 122/70 98
10/08/23 14:31 10/08/23 14:31 10/08/23 14:31 10/08/23 14:31 10/08/23 14:31
Last Documented Vital Signs
Temp Pulse Resp BP Pulse Ox
98.0 F 93 18 156/86 93
10/08/23 23:15 10/08/23 23:15 10/08/23 23:15 10/08/23 23:15 10/08/23 23:15
MDM/Problems Addressed
MDM/Problems Addressed:
Outpatient CXR from today reviewed: large pleural effusion
Blood work (outpatient) : anemia with hyponatremia.
Will admit for further evaluation and treatment, including likely repeat thoracentesis.
*Critical Care Note
Total Time (30-74mins, 75-104mins- exclusive of procedures): Not Applicable
ED Attending Note
-
Portions of this chart may have been created with voice recognition software.� Occasional wrong word or��sound alike� substitutions may have occurred due to the inherent limitations of voice recognition software.
Discharge Plan
Departure
Patient Disposition: Admit
Date of Disposition: 10/08/23
Time of Disposition: 16:50
Admit to: Telemetry
Presentation/result/management discussed w/ accepting MD/DO: Hospitalist
Discharge Problem:
Pleural effusion, Hyponatremia, Anemia
Interventions
Interventions:
*Risk Screen - Suicide Last Done: 10/08/23 21:06
*General Assessment Last Done: 10/08/23 14:31
*Neglect/Abuse Screening Last Done: 10/08/23 14:31
ED- Fall Risk Assessment Last Done: 10/08/23 16:12
*ED COVID-19 Vaccine History Last Done: 10/08/23 21:06
*Nursing Disposition Last Done: 10/08/23 19:46
Discharge Date and Time
Discharge Date/Time: 10/08/23 19:46
[2023-10-08 16:35] VITALS: BP 121/74
--- NOTE | 2023-10-08 17:06 | HPS.HSE ---
Addendum entered and electronically signed by Amaury Whitfield MD 10/08/23 18:15:
I saw and examined the patient.
The INSTRUCTIONAL TECHNOLOGY COACH or PA's note was reviewed and I agree with the note.
Comment:
Patient 78 years male with past medical history hypertension, hypothyroidism, chronic hyponatremia, warm or immune hemolytic anemia, bullous pemphigoid, colon cancer, chronic back pain, left pleural effusion status post paracentesis as recently as
last month, presented to the hospital with a follow-up interval chest x-ray that shows recurrent left pleural effusion. He currently denies any chest pain or worsening shortness of breath or cough or fever. He does admit that he decreased the
doses of his diuretics since Sunday. He does notice that he has more edema of his lower extremities and also some weight gain. He was recently hospitalized on 09/26 and discharged on 09/30 for similar complaint of pleural effusion and hyponatremia.
Physical exam:
General: Acute and chronically ill
HEENT: Normocephalic, Atraumatic and Moist Mucous Membranes
Respiratory: Decreased breath sounds on the left. Clear to Auscultation; Negative Wheezes, Rales or Rhonchi
Cardiac: Regular Rhythm and S1/S2
GI: Soft, Nontender and Nondistended
Musculoskeletal: Bilateral lower extremity edema. Cyanosis to both lower extremities. Tibial and pedal pulses palpable both symmetrical.
Neuro: Awake, Alert and Oriented
Psych: Calm
A/P:
Recurrent pleural effusion/hyponatremia/anemia--> plan to repeat left thoracentesis, might need to consider video-assisted thoracoscopy both diagnostic and therapeutic if recurrent; check SHANTE, RF, ANCA, fluid restriction, diuretics, use IV Bumex 1
mg tonight and increase torsemide back up to original doses if able to tolerate, might require Samsca but monitor sodium closely. Repeat hemoglobin with LFTs, reticulocyte count, haptoglobin, LDH. Reviewed last echocardiogram EF 55 to 60% with
some valvulopathy-no need to repeat. Further recommendations based on his clinical course and rest of his workup.
Original Note:
Family Physician
-
Family Physician: Santiago Garvin
Chief Complaint
-
Recurrent left large pleural effusion
History of Present Illness
78-year-old male sent by outpatient radiology for recurrent left large pleural effusion. The patient recent admission with thoracentesis to drain his left pleural effusion where he had 2 L removed on 09/26 and 1.6 L removed on 09/28/2023. It was
thought at that time to be secondary to fluid overload versus autoimmune disorder. His prednisone 5 mg daily was stopped over a week ago. Patient states on Sunday 3 days ago he was very dizzy. He decreased his torsemide from 10 mg twice daily to
5 mg twice daily over the last 2-1/2 days. He states when he left here on 09/30/2023 he was 183 pounds he is currently 193 pounds with a 10 pound weight gain in the last 8 days. He denies headache, current dizziness, blurred vision, chest pain,
palpitations, shortness of breath, cough, abdominal pain, nausea, vomiting, diarrhea, fever, chills. He does have increased leg edema +2-3 bilateral legs. He was also noted to be hyponatremic and anemic on labs. He has past medical history of
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
Medical History
Past Medical History
Past Medical History: Reports Other (Exudative left pleural effusion September 2023 hyponatremia, HTN, hypothyroidism, bullous pemphigoid, former smoker,vitamin D deficiency, vertebral compression fractures, warm hemolytic anemia status post
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
Past Surgical History: Reports Tonsilectomy and Other (Status postthoracentesis left lung 2 L on 09/26, 1.6 L on 09/28/2023)
Social History
Tobacco: Non-smoker
Alcohol: None
Drug: None
Personal:
Living: With Family ()
Employment: Retired
Family History
Family History: Not pertinent
Allergies / Home Medications
Allergies reflects when Allergies were last updated in [facility].
Home Medications with original date entered in [facility]
Allergy/Medication List:
Allergies
Allergy/AdvReac Type Severity Reaction Status Date / Time
amlodipine Allergy Intermediate Unknown Verified 10/08/23 14:29
Home Medications
metoprolol succinate 50 mg tablet,extended release 24 hr 50 mg PO BID Heart disease/condition 03/03/11
levothyroxine 75 mcg tablet 75 mcg PO DAILY AT 0700 Thyroid 12/03/18
betamethasone dipropionate 0.05 % topical cream 1 applic topical HS apply to chest and B/L sides of abd 09/26/23
folic acid 1 mg tablet 1 mg PO DAILY Supplement 09/26/23
cholecalciferol (vitamin D3) 25 mcg (1,000 unit) tablet 1,000 unit PO DAILY 30 days #30 tabs 09/30/23
sodium chloride 1,000 mg soluble tablet 1,000 mg PO BID 30 days #60 tabs 09/30/23
torsemide 10 mg tablet 10 mg PO BID 30 days #60 tabs 09/30/23
Review of Systems
-
History Source: Patient and Family ( at bedside)
A 12 point ROS was completed and negative except as noted: Yes
Constitutional: Reports Weight Gain (10 pounds past 8 days); Denies Fever, Fatigue or Chills
EENT: Denies Sore Throat or Runny Nose
Respiratory: Denies Cough or Trouble Breathing
Cardiac: Denies Chest Pain, Diaphoresis, Palpitations or Syncope
Abdomen/GI: Denies Abdominal Pain, Nausea, Vomiting, Diarrhea, Constipated, Bloody Stools or Black Stools
: Denies Dysuria, Frequency, Flank Pain, Incontinence, Difficulty Voiding or Urgency
Musculoskeletal: Reports Edema (+2-3 leg edema); Denies Joint Pain
Skin: Reports Other (On and off bluish discoloration bilateral legs currently right toes); Denies Itching or Rash
Neurological: Denies Dizzy, Headache or Weakness
Endocrine: Reports No Symptoms
Hematologic/Lymphatic: Reports No Symptoms
Psych: Reports Calm
Physical Exam
Vital Signs
Vital Signs
Temp Pulse Resp BP Pulse Ox
98.4 F 84 18 121/74 98
10/08/23 14:31 10/08/23 16:35 10/08/23 16:35 10/08/23 16:35 10/08/23 16:35
Physical Exam
General: No Apparent Distress, Comfortable and Conversant; No Pain, Fever or Chills
HEENT: NormoCephalic, Anicteric, PERRLA, [place] Conjunctivae and No Ptosis
Respiratory: Other (Diminished left lung to left middle base right CTA); No Wheezes, Rales or Rhonchi
Cardiac: S1/S2, Regular Rhythm and Peripheral Edema (+2-3 bilateral lower legs); No Murmur, Rub or Gallop
Breast: Deferred by me
GI: Soft, Non Tender, Non Distended, Normal Bowel Sounds and No Hepatosplenomegaly
Rectal: Deferred by Provider
Genito-urinary: Deferred by me
Musculoskeletal: No Clubbing, Cyanosis (All fingernails and right toes suspect underlying Raynaud's disease, sensation intact, brisk cap refill fingers and toes), Edema, Left Lower Extremity (+2-3) and Edema, Right Lower Extremity (+2-3); No Edema,
Left Upper Extremity or Edema, Right Upper Extremity
Skin: Warm and Dry; No Rash or Jaundice
Neuro: AO x 3, No Motor Deficits, Nonfocal/grossly intact, No Sensory Deficits and DTR's Intact & Symmetrical; No Slurred Speech, Facial Droop or Tremors
Psych: Calm
Impression/Plan
-
Impression/plan:
Admit to MedSurg
#Recurrent left large pleural effusion Hx fluid overload
#Status post thoracentesis left lung 2 L on 09/26, 1.6 L on 09/28/2023
Weight gain 10 pounds in the past 8 days 183LBS > 193 LBS
WBC 12.2 > 9.5 on 09/30/2023
-Consult IR for thoracentesis with repeat cytology THis will be 3rd thora since 09/26
-Adenosine deaminase pleural fluid level pending from 09/26/2023(was a send out lab)
2D echo 09/27/2023: EF 55 to 60%, no wall abnormalities, mild/moderate aortic insufficiency, mild/moderate TR.
#Anemia likely hemodilution
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
No current bleeding
-Patient follows with Nasra Crawford
Hgb 10.7 <13.8 on 09/30/2023
-Heme check stools
-Follow CBC
#Hyponatremia secondary to left pleural effusion
#Hx hyponatremia
NA 125
-Fluid restrict
-Continue sodium chloride 1000 g twice daily had recent increase to 1 g twice daily and 10 mg torsemide twice daily, although the patient has been taking 5 mg twice daily times the last 2.5 days
-Resume torsemide at 10 mg twice daily
-Check urine sodium, urine osmo
-IV Bumex 1 mg this evening
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
#Bullous pemphigoid
-Prednisone was stopped 1 week ago and patient normally is on 5 mg daily
#Hypothyroidism
-Continue levothyroxine
#HTN�benign
BP 121/74
#Hx vertebral compression fractures
#Vitamin D deficiency
-Supplementation of vitamin D started on September admission
DVT prophylaxis
Subcu Lovenox
Full code
[2023-10-08] MEDS: BUMEX 1 MG IV (18:41)
[2023-10-08 20:11] VITALS: BP 147/82; BMI 29.3
--- NOTE | 2023-10-08 20:20 | PTCARENOTE ---
Pt arrived from ED via stretcher and ambulated to bed. Pt is AAOx3, w/o complaints of pain, and VSS. Pt is oriented to room resting comfortably with call henderson within reach.
[2023-10-08] MEDS: TOPROL XL 50 MG PO (20:57)
[2023-10-08] MEDS: SODIUM CHLORIDE 1 GRAM PO (20:57)
[2023-10-08] MEDS: LOVENOX 40 MG SC (20:57)
[2023-10-08] MEDS: DIPROSONE CREAM 0.05% 1 APPLIC TOPICAL (21:23)
[2023-10-08 23:15] VITALS: BP 156/86
[2023-10-09] VITALS (11 sets, daily range): BP systolic 66–147; BP diastolic 66–82; PULSE 71; O2SAT 97
[2023-10-09] MEDS: SYNTHROID 75 MCG PO (05:31)
[2023-10-09] MEDS: SODIUM CHLORIDE 1 GRAM PO ×2 (08:19→20:19)
[2023-10-09] MEDS: TOPROL XL 50 MG PO ×2 (08:19→20:19)
[2023-10-09] MEDS: DEMADEX 10 MG PO (08:19)
[2023-10-09] MEDS: FOLVITE 1 MG PO (08:20)
[2023-10-09] MEDS: VITAMIN D3 (cholecalciferol) 25 MCG PO (08:20)
[2023-10-09 09:31] LABS: % Basophils 0.9 % (0-2); % Eosinophils 6.7 % (0-6); % Lymphocytes 2.4 % (20.5-51.1); % Monocytes 10.4 % (1.7-9.3); % Neutrophils 78.6 % (42.2-75.2); Absolute Basophils 0.1 10^3/uL (0-0.2); Absolute Eosinophils 0.8 10^3/uL (0-0.7); Absolute Immature Granulocytes 0.1 10^3/uL (0-0.05); Absolute Lymphocytes 0.3 10^3/uL (1.2-3.4); Absolute Monocytes 1.2 10^3/uL (0.1-0.6); Absolute Neutrophils 9.4 10^3/uL (1.4-6.5); Hematocrit 26.7 % (39.0-52.0); Hemoglobin 9.5 g/dL (13.0-18.0); Mean Corp Hgb Conc. 35.6 g/dL (33.0-37.0); Mean Corpuscular Hgb 30.9 pg (27.0-31.0); Nucleated Red Blood Cells % 0 % (-); Platelet Count 194 10^3/uL (130-400); Red Blood Cell Count 3.07 10^6/uL (4.70-6.10); Red Cell Dist. Width 13.7 % (11.5-14.5); Reticulocyte Count 3.6 % (0.4-2.8); White Blood Cell Count 11.9 10^3/uL (4.8-10.8)
[2023-10-09 09:58] LABS: ALT (SGPT) 29 U/L (0-50); AST (SGOT) 28 U/L (17-59); Albumin 2.7 g/dl (3.5-5.0); Alkaline Phosphatase 148 U/L (38-126); Blood Urea Nitrogen 8 mg/dl (9-20); Calcium 7.8 mg/dl (8.4-10.2); Carbon Dioxide 24 mmol/L (22-30); Chloride 93 mmol/L (98-107); Direct Bilirubin 0.5 mg/dl (0.0-0.4); Estimated Creatinine Clearance 87 ml/min; Glucose 125 mg/dl (70-99); LDH 181 U/L (120-246); Potassium 4.1 mmol/L (3.5-5.1); Sodium 122 mmol/L (135-145); Total Bilirubin 1.1 mg/dl (0.2-1.3); Total Protein 5.3 g/dl (6.3-8.2); eGFR > 60.00
--- NOTE | 2023-10-09 11:48 | CM ---
Patient seen bedside with , initial assessment completed. Patient resides with his in a two story home, three steps to enter, 14 steps to second level. Patient denies DME, VN, or SNF. Patient confirms PCP Dr. Garvin, pharmacy [facility]
[place]. Watch for PT/OT recommendations. CM will continue to follow for discharge planning needs.
Plan; home no needs pending PT/OT evals, watch for HH needs.
[2023-10-09 12:08] LABS: Body Fluid Mononuclear 97.6 %; Body Fluid Polymorphonuclear 2.4 %; Body Fluid WBC 5768 /CUMM
[2023-10-09 12:10] LABS: Body Fluid Second Tech CF
[2023-10-09 12:16] LABS: Body Fluid Amylase < 30 U/L; Body Fluid Glucose 71 mg/dl; Body Fluid LDH 204 U/L; Body Fluid Protein 4.4 g/dl
[2023-10-09 12:22] LABS: Body Fluid Triglycerides < 30 mg/dl
--- NOTE | 2023-10-09 13:23 | CON.MD ---
Consultation - Medical
-
Assessent:
hyponatremia (122) with prior history of seizures with hyponatremia. bl Na around 130
Large L pleural effusion s/p thora
HTN
bullous pemphigoid
WAIHA
Colon cancer
hypothyroid
Plan:
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
- Uosm Ana
- previous admission TSH wnl, cortisol OK
- give samsa 15mg today
- recheck Na q6 hours until tomorrow morning
- hold fluid restriction and diuresis while giving samsca
- discussed with patient
[2023-10-09] MEDS: SAMSCA 15 MG PO (14:32)
--- NOTE | 2023-10-09 14:37 | W.PN.HOSP.TC ---
Today's Communication/Plan
-
Nephrology evaluation
Lower extremity arterial Doppler
Assessment / Plan
Assessment / Plan
1. Recurrent left pleural effusion
-had thoracentesis x2 of 2L and 1.6L exudative fluid in Sep 26
-Chest x-ray showing moderate to large left pleural effusion this admission
-Patient got up with thoracentesis today, fluid studies showing WBC of 5.7K 97.5% mononuclear and 2.5% PMN Glu 71 mg/dl TP 4.4g/dl LDH 204
-Denies of having any excessive shortness of breath/chest discomfort
2. Acute on chronic hyponatremia
-Last admission patient requiring dose of Samsca/fluid restriction
-Patient's sodium down to 122 again this admit
-Patient to maintain on 40 hospital restriction and sodium p.o.
-Nephrology consulted for further evaluation and help
3. Right foot cyanosis
-Patient have right foot toes cyanotic, good dorsalis pedis and posterior tibialis pulse
-Small vascular disease? Lower extremity arterial Doppler ordered
4. 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
-Hemoglobin down to 9.5, platelet normal
-Continue monitoring. Check LDH. Retic count 3.6%
h/o seziure suspected from hyponatremia
Essential hypertension
Hypothyroidism
History of breast pemphigoid
Former smoker
Vitamin D deficiency
History of vertebral compression fracture
History of tonsillectomy
DVT PPX - lovenox
Full code
Anticipated Discharge: 24 - 48 hours
Subjective/Interval History
-
Date of Service: October 09, 2023
Patient seen post paracentesis, denies of having any excessive shortness of breath
Right foot toe cyanosis, denies pain/tingling
Objective Data
-
Labs:
Laboratory Results
10/09/23 10/09/23
08:52 19:00
WBC 11.9 H
Hgb 9.5 L
Hct 26.7 L
Plt Count 194
Sodium 122 L Pending
Potassium 4.1 Pending
Chloride 93 L Pending
Carbon Dioxide 24 Pending
BUN 8 L Pending
Creatinine 0.7 Pending
Glucose 125 H Pending
Calcium 7.8 L Pending
Total Bilirubin 1.1
AST 28
ALT 29
Alkaline Phosphatase 148 H
Vital Signs:
Vital Signs
Temp Pulse Resp BP Pulse Ox
97.6 F 69 18 141/78 96
10/09/23 11:25 10/09/23 11:25 10/09/23 11:25 10/09/23 11:25 10/09/23 11:25
I&O
10/08/23 10/09/23 10/10/23
06:59 06:59 06:59
Intake Total 480 / 480
Balance 480 / 480
Review of Systems
-
Unable to obtain full review of systems at this time due to: Acuity
Physical Exam
-
General: No Apparent Distress
HEENT: Oxygen
Respiratory: Clear to Auscultation
Cardiac: Regular Rhythm and S1/S2
GI: Soft, Nontender and Nondistended
Musculoskeletal: Cyanosis (Right foot toe)
Neuro: Awake, Alert and No Motor Deficits
Psych: Calm
--- NOTE | 2023-10-09 15:02 | PTOTSP ---
Pt presents to OT at mod I level with basic ADLs, transfers and functional mobility in room and bathroom without AD. No further skilled OT indicated at this time. Will sign off.
--- NOTE | 2023-10-09 15:31 | PTOTSP ---
Patient demonstrates independence with bed mobility, transfers, ambulation and elevations.
Does not demonstrate need for continued skilled therapy at this time and will be discharged. If needs change, please re-consult.
[2023-10-09] MEDS: LOVENOX 40 MG SC (17:51)
[2023-10-09 19:14] LABS: Blood Urea Nitrogen 11 mg/dl (9-20); Calcium 8.5 mg/dl (8.4-10.2); Carbon Dioxide 27 mmol/L (22-30); Chloride 92 mmol/L (98-107); Estimated Creatinine Clearance 76 ml/min; Glucose 154 mg/dl (70-99); Potassium 4.1 mmol/L (3.5-5.1); Sodium 126 mmol/L (135-145); eGFR > 60.00
--- NOTE | 2023-10-09 19:31 | PTCARENOTE ---
1020 Patient toes on right foot are purple an cyanatic. Dr. Agee made aware. U/S with DENTON ordered. Cont to assess patient status.
[2023-10-09] MEDS: DIPROSONE CREAM 0.05% 1 APPLIC TOPICAL (20:19)
[2023-10-09 20:49] LABS: Osmolality Urine 97 mOsm/kg (300-900)
[2023-10-09 20:56] LABS: Urine Sodium 14 mmol/L (30-90)
[2023-10-10] MEDS: SYNTHROID 75 MCG PO (03:53)
[2023-10-10 04:04] VITALS: BP 108/50
[2023-10-10 05:57] VITALS: BMI 27.4
[2023-10-10] MEDS: VITAMIN D3 (cholecalciferol) 25 MCG PO (07:55)
[2023-10-10] MEDS: FOLVITE 1 MG PO (07:55)
[2023-10-10] MEDS: TOPROL XL 50 MG PO (07:55)
[2023-10-10] MEDS: SODIUM CHLORIDE 1 GRAM PO (07:56)
[2023-10-10 08:00] VITALS: BP 125/75
[2023-10-10 08:46] LABS: % Eosinophils 5.6 % (0-6); % Immature Granulocytes 1.1 % (0-0.5); % Lymphocytes 3.2 % (20.5-51.1); % Neutrophils 76.1 % (42.2-75.2); Absolute Basophils 0.1 10^3/uL (0-0.2); Absolute Eosinophils 0.6 10^3/uL (0-0.7); Absolute Immature Granulocytes 0.1 10^3/uL (0-0.05); Absolute Lymphocytes 0.4 10^3/uL (1.2-3.4); Absolute Monocytes 1.4 10^3/uL (0.1-0.6); Absolute Neutrophils 8.2 10^3/uL (1.4-6.5); Hematocrit 27.4 % (39.0-52.0); Hemoglobin 9.5 g/dL (13.0-18.0); Mean Corp Hgb Conc. 34.7 g/dL (33.0-37.0); Mean Corpuscular Hgb 30.1 pg (27.0-31.0); Mean Corpuscular Volume 86.7 fL (80.0-94.0); Mean Platelet Volume 10.3 fL (7.4-10.4); Nucleated Red Blood Cells % 0 % (-); Platelet Count 203 10^3/uL (130-400); Red Blood Cell Count 3.16 10^6/uL (4.70-6.10); Red Cell Dist. Width 13.8 % (11.5-14.5); White Blood Cell Count 10.8 10^3/uL (4.8-10.8)
[2023-10-10 09:35] LABS: Blood Urea Nitrogen 10 mg/dl (9-20); Calcium 8.3 mg/dl (8.4-10.2); Carbon Dioxide 25 mmol/L (22-30); Chloride 96 mmol/L (98-107); Estimated Creatinine Clearance 87 ml/min; Glucose 94 mg/dl (70-99); Sodium 131 mmol/L (135-145); eGFR > 60.00
[2023-10-10] MEDS: MIRALAX 17 GRAMS PO (09:35)
--- NOTE | 2023-10-10 10:46 | CM ---
Patient seen bedside, reports no new concerns. IMM reviewed, signed, placed in patients chart. CM will continue to follow for discharge planning needs.
Plan; home no needs.
[2023-10-10 11:40] VITALS: BP 121/67
--- NOTE | 2023-10-10 12:24 | W.PN.NEPH.PH ---
Today's Communication / Plan
-
- no more samsca
- initiate urea packets, plan for 15g daily
- follow up with Dr. Curiel next week
Assessment/Plan
-
Assessent:
hyponatremia (122) with prior history of seizures with hyponatremia. bl Na around 130
Large L pleural effusion s/p thora
HTN
bullous pemphigoid
WAIHA
Colon cancer
hypothyroid
Plan:
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
- uosm, Sean consistent with low osm state but of note this was done after samsca given so hard to interpret
- Na improved with samsca 15g from 122 --> 131
- give 15g urea today and plan for discharge with urea packets
- patient having dizziness with torsemide, ok to hold. ok to stop NaCl tabs. can continue fluid restriction
- follow up with Dr. Curiel scheduled next week
-
-
Date of Service: October 10, 2023
CC / HPI / ROS
-
Chief Complaint:
hyponatremia
History of Present Illness:
hyponatremia to 122
recurrent l pleural effusion
Review of Systems:
feeling well this AM
Na improved to 131
Labs
-
Labs:
WBC 10.8 10^3/uL (4.8-10.8) 10/10/23 08:19
RBC 3.16 10^6/uL (4.70-6.10) L 10/10/23 08:19
Hgb 9.5 g/dL (13.0-18.0) L 10/10/23 08:19
Hct 27.4 % (39.0-52.0) L 10/10/23 08:19
Plt Count 203 10^3/uL (130-400) 10/10/23 08:19
Sodium 131 mmol/L (135-145) L 10/10/23 08:19
Potassium 4.0 mmol/L (3.5-5.1) 10/10/23 08:19
Chloride 96 mmol/L (98-107) L 10/10/23 08:19
Carbon Dioxide 25 mmol/L (22-30) 10/10/23 08:19
BUN 10 mg/dl (9-20) 10/10/23 08:19
Creatinine 0.7 mg/dL (0.7-1.3) 10/10/23 08:19
eGFR > 60.00 10/10/23 08:19
Glucose 94 mg/dl (70-99) 10/10/23 08:19
Calcium 8.3 mg/dl (8.4-10.2) L 10/10/23 08:19
Albumin 2.7 g/dl (3.5-5.0) L 10/09/23 08:52
Physical Exam
-
Vital Signs:
Vital Signs
Temp Pulse Resp BP Pulse Ox
98.4 F 72 16 121/67 97
10/10/23 11:40 10/10/23 11:40 10/10/23 11:40 10/10/23 11:40 10/10/23 11:40
Cardiovascular:: Regular rate and rhythm
Respiratory:: Bilateral: Coarse
Lung Excursion:: Normal
Abdomen:: Soft
Bowel Sounds:: Normal
Extremity Edema:: None: Bilateral:
Krishnamurthy Catheter: No
--- NOTE | 2023-10-10 12:33 | W.PN.HOSP.TC ---
Addendum entered and electronically signed by Pedro Agee MD 10/12/23 07:28:
Adjust diagnosis :
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
Original Note:
Today's Communication/Plan
-
d/c home
Assessment / Plan
Assessment / Plan
1. Recurrent left pleural effusion
-had thoracentesis x2 of 2L and 1.6L exudative fluid in Sep 26
-Chest x-ray showing moderate to large left pleural effusion this admission
-Patient is s/p thoracentesis of 1.5L of exudative fluid , fluid studies showing WBC of 5.7K 97.5% mononuclear and 2.5% PMN Glu 71 mg/dl TP 4.4g/dl LDH 204
-Denies of having any excessive shortness of breath/chest discomfort
-Discussed with pulmonology, patient has been recommended for thoracoscopy/VATS unfortunately cardiothoracic surgery in does not do this procedures. Pulmonology has recommended for patient to follow up downtown, [facility] pulmonology group contact
number provided.
2. Acute on chronic hyponatremia
-Last admission patient requiring dose of Samsca/fluid restriction
-Patient's sodium down to 122 again this admit
-Patient to maintain on 40 hospital restriction and sodium p.o.
-Nephrology evaluated and got dose of samsca - Na 131 today
-f/u script for BMP provided in 1 week and to f/u with nephrology office.
3. Right foot cyanosis
-Patient have right foot toes cyanotic, good dorsalis pedis and posterior tibialis pulse
-Small vascular disease? Lower extremity arterial Doppler neg.
4. 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
-Hemoglobin down to 9.5, platelet normal
-Continue monitoring.
h/o seizure suspected from hyponatremia
Essential hypertension
Hypothyroidism
History of breast pemphigoid
Former smoker
Vitamin D deficiency
History of vertebral compression fracture
History of tonsillectomy
DVT PPX - lovenox
Full code
Care plan discussed with patient primary care physician as well.
More than 30 minutes spent in discharge including
Final examination of the patient
Summarizing hospital stay
Instructions for continuing care to all relevant caregivers
Preparation of discharge records, prescriptions, and referral forms
Total time spent (in minutes): 38 mins
Anticipated Discharge: Today
Subjective/Interval History
-
Date of Service: October 10, 2023
Resting comfortably in bed
No shortness of breath/chest discomfort
No complaints of right extremity pain
Objective Data
-
Labs:
Laboratory Results
10/10/23
08:19
WBC 10.8
Hgb 9.5 L
Hct 27.4 L
Plt Count 203
Sodium 131 L
Potassium 4.0
Chloride 96 L
Carbon Dioxide 25
BUN 10
Creatinine 0.7
Glucose 94
Calcium 8.3 L
Vital Signs:
Vital Signs
Temp Pulse Resp BP Pulse Ox
98.4 F 72 16 121/67 97
10/10/23 11:40 10/10/23 11:40 10/10/23 11:40 10/10/23 11:40 10/10/23 11:40
I&O
10/09/23 10/10/23 10/11/23
06:59 06:59 06:59
Intake Total 480 / 480 1020 / 1020 240 / 240
Output Total 2150 / 2150
Balance 480 / 480 -1130 / -1130 240 / 240
Review of Systems
-
Respiratory: Reports No Symptoms
Cardiac: Reports No Symptoms
Abdomen/GI: Reports No Symptoms
Physical Exam
-
General: No Apparent Distress
HEENT: Negative Oxygen
Respiratory: Clear to Auscultation
Cardiac: Regular Rhythm and S1/S2
GI: Soft, Nontender and Nondistended
Musculoskeletal: Cyanosis (Right foot toe)
Neuro: Awake, Alert and No Motor Deficits
Psych: Calm
[2023-10-10] MEDS: URE-NA 15 GRAMS PO (13:01)
--- NOTE | 2023-10-10 14:47 | PN.CDI ---
CDI
- -
CDI:
Physician Documentation Request
Admit Date: 10/08/23 18:15
Dear Doctor Anuel,
Please review the following and provide your response in the progress notes.
Clinical Indicators:
- 10/10 PN 'Acute on chronic hyponatremia...Nephrology evaluated and got dose of samsca'
- 1200ml/day fluid restriction
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
Laboratory Tests
10/09/23 10/09/23 10/10/23
08:52 18:29 08:19
Sodium 122 L 126 L 131 L
In an attempt to clarify potentially conflicting documentation, please clarify the diagnosis with the above findings:
SIADH
Hyponatremia
Other
Use of terms such as suspected, likely, concern for, or probable (associated with a specific diagnosis that is being evaluated, monitored, or treated as if it exists) are acceptable and can be coded in the inpatient setting, when documented at the
time of discharge.
Thank you,
Belgica Fields RN
CDI Specialist
Please use your independent medical judgment in providing your response.
[2023-10-10 16:05] LABS: Osmolality Urine 96 mOsm/kg (300-900)
[2023-10-10 16:38] LABS: Urine Sodium 13 mmol/L (30-90)
--- NOTE | 2023-10-10 17:21 | W.DCSUMMARY ---
Discharge Summary
Discharge Data
Date of Admission: 10/08/23
Date of Discharge: 10/10/23
-
Pending Results: No
Hospital Course
Discharging Physician : Dr Pedro Agee
Disposition : Home
Primary care physician : Dr. Santiago Diallo
Principal Discharge diagnosis :
Recurrent left pleural effusion
Acute on chronic hyponatremia
Right foot cyanosis
Chronic Discharge diagnosis :
History of warm autoimmune related anemia post COVID-vaccine
History of seizure suspected from hyponatremia
Essential hypertension
History of bullous pemphigoid
Former smoker
History of vertebral compression fracture
History of tonsillectomy
Hospital Course :
Patient is a 78-year-old male with above-mentioned past medical history was sent in to hospital for found to having recurrence of left-sided effusion. Patient was not having any chest discomfort/shortness of breath/cough at admission. Patient have
recently been hospitalized for left-sided pleural effusion and hyponatremia and was on diuretic therapy. Unfortunately patient was not able to tolerate higher dose of diuretic therapy and decreased dose. Repeat x-ray in ER showing moderate size
left pleural effusion. Interventional radiology was consulted and patient had left-sided thoracentesis with drainage of 1.55 L exudative fluid. Patient case was discussed with pulmonology who recommended patient for possible follow-up at tertiary
center for thoracoscopic evaluation. Patient will follow-up with pulmonology in office within 72 hours postdischarge.
Patient also noted to having recurrence of hyponatremia with sodium of 122, patient was largely asymptomatic. Nephrology was involved in care and evaluated patient. Patient was felt to having ADH excess causing hyponatremia and was provided dose
of Samsca. Patient sodium improved to 131 after dose of Samsca. Nephrology recommended patient to be taken off of diuretic therapy. Patient salt pills were changed to sodium Urea as well.
Patient have right foot cyanotic toes as well, reason remains unclear. Arterial Doppler negative for any blockages. Question of vasculitis versus Raynaud's is a possibility. Discussed with primary care physician in May require follow-up with
rheumatology.
Important imaging findings :
None
Procedure findings :
None
Discharge Plan
-
Patient Disposition: Home (Routine Discharge)
Discharge Diagnosis/Procedures: Recurrent left pleural effusion, Hyponatremia, right foot toe cyanosis
Condition: Fair
Diet: 2 Gram Sodium
Additional Diets: 40 Oz fluid restriction
Activity: As tolerated
Driving Restrictions: As prior to admission
Bathing Restrictions: OK to Shower
Activity Restrictions/Additional Instructions:
Please follow up with [facility] pulmonology for possible evaluation for thoracoscopy. Contact number : [phone]
Referrals:
Waqas Curiel DO [Active] -
Warren Rivera MD [Active] -
Santiago Garvin DO [Family Provider] - in one week
Prescriptions:
New
polyethylene glycol 3350 [HealthyLax] 17 gram Powder In Packet
17 g PO DAILY Qty: 30 0RF
Ure-Na 15 gram Powder In Packet
15 g PO DAILY Qty: 30 0RF
Continued
metoprolol succinate 50 MG tablet extended release 24 hr
50 mg PO BID
levothyroxine 75 MCG tablet
75 mcg PO DAILY
betamethasone dipropionate 0.05 % Cream
1 applic TOPICAL HS
folic acid 1 mg tablet
1 mg PO DAILY
cholecalciferol (vitamin D3) 25 mcg (1,000 unit) Tablet
1,000 unit PO DAILY 30 Days Qty: 30 0RF
Discontinued
sodium chloride 1,000 mg tablet,soluble
1,000 mg PO BID 30 Days Qty: 60 0RF
torsemide 5 mg Tablet
5 mg PO BID
Patient Comments:
10/08/2023, pt. has been using his old prescription for a couple of days now because his newer prescription (10 mg BID) has been making him feel sick.
Discharge Orders:
Discharge Patient (As Directed); Ordered 10/10/23
Ordered By: Pedro Agee
Discharge Date and Time
Discharge Date/Time: 10/10/23 13:28
[2023-10-10 21:50] LABS: Haptoglobin 261 mg/dL (30-200)
[2023-10-11 05:10] LABS: ANA, IgG Reflex to HEp-2 None Detected (None Detected)
[2023-10-11 17:08] LABS: Myeloperoxidase Antibody 0 AU/mL (0-19); Serine Protease-3, IgG 0 AU/mL (0-19)
[2023-10-15 16:46] LABS: Rheumatoid Agglutinin Less Than 10 IU (<10 IU)
== END 2023-10-10 13:28 | disposition home or self-care (01) | DRG 187 ==
LOC: 4 EAST ACU 18:15
PROVIDERS: Clinical Nurse Specialist Family Health; Radiology Vascular & Interventional Radiology; ADMITTING PHYSICIAN Hospitalist; ATTENDING PHYSICIAN Hospitalist; EMERGENCY PHYSICIAN Emergency Medicine; FAMILY PHYSICIAN Internal Medicine; OTHER PHYSICIAN Student in an Organized Health Care Education/Training Program
PROC: 0W9B3ZX Drainage of Left Pleural Cavity, Percutaneous Approach, Diagnostic (ICD-10-PCS; 2023-10-09)
DX: J90 Pleural effusion, not elsewhere classified (principal); D59.11 Warm autoimmune hemolytic anemia; E22.2 Syndrome of inappropriate secretion of antidiuretic hormone; L12.0 Bullous pemphigoid; Z87.891 Personal history of nicotine dependence; E03.9 Hypothyroidism, unspecified; I10 Essential (primary) hypertension; E55.9 Vitamin D deficiency, unspecified
CPT/HCPCS: 88305; 32555; 36415; 71045; 71046; 80048; 80053; 80061; 82150; 82248; 82945; 83010; 83036; 83516; 83615; 83935; 83986; 84157; 84300; 84443; 84478; 85025; 85045; 86038; 86140; 86430; 86850; 86870; 86900; 86901; 87015; 87070; 87102; 87116; 87205; 87206; 88112; 88341; 88342; 89051; 93922; 93925; 97116; 97162; 97165; 99285; G0103

== ENCOUNTER → 2023-10-15 10:20 | Outpatient (REF) | payer MEDICARE, BC, SELFPAY ==
[2023-10-15 11:01] LABS: % Eosinophils 8.9 % (0-6); % Immature Granulocytes 2.3 % (0-0.5); % Monocytes 8.5 % (1.7-9.3); % Neutrophils 75.3 % (42.2-75.2); Absolute Basophils 0.1 10^3/uL (0-0.2); Absolute Eosinophils 1.3 10^3/uL (0-0.7); Absolute Immature Granulocytes 0.3 10^3/uL (0-0.05); Absolute Lymphocytes 0.6 10^3/uL (1.2-3.4); Absolute Monocytes 1.3 10^3/uL (0.1-0.6); Hematocrit 24.1 % (39.0-52.0); Hemoglobin 8.7 g/dL (13.0-18.0); Mean Corp Hgb Conc. 36.1 g/dL (33.0-37.0); Mean Corpuscular Hgb 31.8 pg (27.0-31.0); Mean Platelet Volume 11.2 fL (7.4-10.4); Nucleated Red Blood Cells % 0 % (-); Platelet Count 185 10^3/uL (130-400); Red Blood Cell Count 2.74 10^6/uL (4.70-6.10); Red Cell Dist. Width 15.8 % (11.5-14.5); White Blood Cell Count 14.6 10^3/uL (4.8-10.8)
[2023-10-15 11:17] LABS: Blood Urea Nitrogen 15 mg/dl (9-20); Calcium 7.9 mg/dl (8.4-10.2); Carbon Dioxide 25 mmol/L (22-30); Chloride 97 mmol/L (98-107); Glucose 87 mg/dl (70-99); Potassium 4.4 mmol/L (3.5-5.1); Sodium 126 mmol/L (135-145); eGFR > 60.00
== END ==
LOC: REG 10:20
PROVIDERS: ATTENDING PHYSICIAN Hospitalist; FAMILY PHYSICIAN Internal Medicine Hematology & Oncology
DX: E87.1 Hypo-osmolality and hyponatremia (principal); D59.9 Acquired hemolytic anemia, unspecified
CPT/HCPCS: 36415; 80048; 85025

== ENCOUNTER 2023-10-17 14:42 | Inpatient (IN) | payer MEDICARE, BC, SELFPAY ==
[2023-10-17 10:24] VITALS: BMI 13.5
[2023-10-17 10:37] VITALS: BP 112/68
--- NOTE | 2023-10-17 10:43 | ED.GENMED ---
History of Present Illness
General
Chief Complaint: Breathing Problem
Time Seen by Provider: 10/17/23 10:41
Travel History
Have you had any contact with someone who has COVID-19?: No
Do you have any symptoms of coronavirus? Fever > 100 degrees, chills, cough, shortness of breath, sore throat, loss of taste or smell, muscle aches, or headache?: No
History of Present Illness
History of Present Illness:
78-year-old male with history of chronic hyponatremia, prior seizures, bullous pemphigoid, and prior autoimmune hemolytic anemia presents to the emergency department for evaluation of increasing shortness of breath. Patient been admitted here on
multiple occasions in the past month due to recurrent pleural effusions, source of the pleural effusion is not clear. He has also had hyponatremia during that time. He is currently still on 10 mg of torsemide as he was not able to start taking
urea tablets. He has had rapidly worsening shortness of breath and in the past 2 days particular with exertion prompting concern for recurrent pleural effusion. He was scheduled to undergo repeat outpatient thoracentesis today by interventional
radiology. Did have outpatient labs 2 days ago that showed a trending down sodium and hemoglobin compared to prior. Denies any melanotic or bloody stool
Past History
Past History
ED Past Medical History: HTN, Seizures (Pt had ONE seizure years ago and found to be significantly hyponatremic. Takes Na tablets daily and is water restricted since.), Hypothyroidism and Other (bullous pemphigous.)
ED Past Surgical History: Tonsilectomy
Social History
Tobacco: Former smoker
Alcohol: Occasional
Drug: None
Personal:
Living: with family
Employment: Retired
Family History
Family History: Other (Noncontributory)
Review of Systems
Review of Systems
Allergies reviewed?: Yes
All Other Systems: ROS reviewed and negative except as documented in HPI and ROS
Phy Exam
Physical Exam
Physical Exam:
GEN: Well appearing, NAD, WDWN
Eyes: PERRLA, EOMs intact, no scleral icterus
HENT: NCAT, oral mucosa moist, no JVD, no cervical adenopathy.
Lungs: normal respiratory effort at rest, mildly diminished left medial and lower lobe breath sounds, otherwise clear
Cardiac: RRR, no M/R/G, no peripheral edema. Radial pulses 2+ bilat
Abdomen: S, NT, ND, NABS, no masses or hepatosplenomegaly
Neuro: AO x 3
MSK: No gross deformity or ecchymosis. 3+ BLE edema
Skin: No rashes, petechiae. Normal color, no pallor or jaundice.
Psych: Calm, cooperative, proper hygiene
Scores
Heart Failure Risk
Heart Failure Risk Score: Not Applicable
Course
Orders/Labs/Results
Orders:
Orders
10/17/23 10:44
Urine Sodium Urgent
10/17/23 10:45
Osmolality, Random Urine Urgent
CR Chest - 2 Views Urgent
Comment:
Reason For Exam: SOB, recurrent pleural effusion
10/17/23 11:29
Type+Screen Urgent
Complete Blood Count/With Diff Urgent
Comprehensive Metabolic Panel Urgent
Direct Bilirubin Urgent
Comment: ADD ON
Ferritin Urgent
Comment: ADD ON
Folate Urgent
Comment: ADD ON
Haptoglobin [S] Urgent
Comment: ADD ON
Iron Urgent
Comment: ADD ON
LDH Urgent
NT-proBNP Urgent
Prothrombin Time Urgent
Reticulocyte Count Urgent
Comment: ADD ON
Serum Osmolality Urgent
Total Iron Binding Urgent
Comment: ADD ON
Troponin I Urgent
Vitamin B12 Urgent
Comment: ADD ON
10/17/23 12:07
Add On- LAB Urgent
Tests Added?: LDH, haptoglobin, direct bilirubin, retic count
10/17/23 12:15
Blood Bank Products [* Blood Bank Products] Urgent
Blood Bank Products: *Packed RBC Leuko(PRBC's)
Quantity: 1
Transfuse Today: Yes
Reason: Anemia
10/17/23 12:45
Electrocardiogram (*1) Urgent
Reason for Study: Shortness of Breath
EKG- Treatment ONCE
10/17/23 14:18
US Chest - Left Routine
Comment:
Reason For Exam: recurrent left pleural
10/17/23 14:26
Admit/Transfer Patient As Directed
Co-Sign Provider:
Level of Care: Inpatient admission
Assign to:: Telemetry
Physician / Group: Maximiliano
Diagnosis: Hyponatremia, Anemia
Reason for Telemetry: Arrhythmia
Date to Stop Telemetry: 10/20/23
Time to Stop Telemetry: 11:00
Reason for Hospitalization: Sodium management, Hematology consult
Expected length of stay greater than two midnights?: Yes
ELOS- Estimated Length of Stay in days: 3
I certify the patient meets the requirements for IP care: Yes
10/17/23 14:29
Code Status As Directed
Resuscitation Status: Full Code
10/17/23 14:31
Add On- LAB Routine
Tests Added?: iron, ferritin, tibc, folate, vit b12, haptoglobin
Add On- LAB Urgent
Tests Added?: direct/indirect bilirubin
10/20/23 11:00
DC Protocol for Telemetry ONCE
Abnormal Lab Results
10/17/23
11:29
WBC 14.5 H 10^3/uL
(4.8-10.8)
RBC 2.34 L 10^6/uL
(4.70-6.10)
Hgb 7.1 L g/dL
(13.0-18.0)
Hct 20.2 L* %
(39.0-52.0)
RDW 16.7 H %
(11.5-14.5)
MPV 10.8 H fL
(7.4-10.4)
Abs Immat Gran (auto) 0.5 H 10^3/uL
(0-0.05)
Absolute Neuts (auto) 11.3 H 10^3/uL
(1.4-6.5)
Absolute Lymphs (auto) 0.5 L 10^3/uL
(1.2-3.4)
Absolute Monos (auto) 1.1 H 10^3/uL
(0.1-0.6)
Absolute Eos (auto) 1.1 H 10^3/uL
(0-0.7)
Immature Gran % 3.1 H %
(0-0.5)
Neutrophils % 77.7 H %
(42.2-75.2)
Lymphocytes % 3.2 L %
(20.5-51.1)
Eosinophils % 7.6 H %
(0-6)
PT 14.9 H Sec
(11.4-14.6)
Sodium 127 L mmol/L
(135-145)
Chloride 95 L mmol/L
(98-107)
Glucose 102 H mg/dl
(70-99)
Serum Osmolality 271 L mOsm/kg
(275-300)
Calcium 8.0 L mg/dl
(8.4-10.2)
Total Bilirubin 1.8 H mg/dl
(0.2-1.3)
Lactate Dehydrogenase 249 H U/L
(120-246)
Total Protein 5.7 L g/dl
(6.3-8.2)
Albumin 2.7 L g/dl
(3.5-5.0)
Antibody Screen Positive A
(Negative)
10/17/23 11:29
10/17/23 11:29
Vital Signs
Initial and Last Documented VS:
Initial Vital Signs
Temp Pulse Resp BP Pulse Ox
97.7 F 90 18 112/68 98
10/17/23 10:37 10/17/23 10:37 10/17/23 10:37 10/17/23 10:37 10/17/23 10:37
Last Documented Vital Signs
Temp Pulse Resp BP Pulse Ox
97.7 F 90 18 112/68 98
10/17/23 10:37 10/17/23 10:37 10/17/23 10:37 10/17/23 10:37 10/17/23 10:37
MDM/Problems Addressed
MDM/Problems Addressed:
78-year-old male presenting with worsening shortness of breath. His lung exam is not remarkable for diminished breath sounds thus full set of labs were ordered as I suspected an alternative etiology to his dyspnea. Ultimately he was found to be
acutely anemic, essentially dropped 6.5 g of hemoglobin in the past 17 days. He is heme-negative stools thus the concern is for potential hemolytic anemia although he has no significant bilirubinemia and LDh which is only minimally elevated. He
does have warm antibodies per blood bank thus supporting the idea of likely hemolytic anemia. Blood transfusion will not be feasible immediately given the antibodies. Will be admitted to the hospitalist service for further management
Comment
Comment:
EKG independently interpreted by me shows normal sinus rhythm at a rate of [address] changes concerning for ischemia
*Critical Care Note
Total Time (30-74mins, 75-104mins- exclusive of procedures): 35-minute
comment:
Critical care time: 35 minutes
Critical care time was exclusive of: Separately billable procedures, treating other patients, and teaching time
Critical care was necessary to treat or prevent imminent or life-threatening deterioration of the following conditions: Critical care time:
Critical care time was exclusive of: Separately billable procedures, treating other patients, and teaching time
Critical care was necessary to treat or prevent imminent or life-threatening deterioration of the following conditions:
Critical care time spent personally by me on the following activities:
[x] Review of old charts
[x] Obtaining history from patient or surrogate
[x] Ordering and review of the laboratory studies
[x] Ordering and review of radiographic studies
[x] Ordering and performing treatments and interventions
[x] Patient patient's response to treatment
[x] Development of treatment plan with patient or surrogate
Critical care time spent personally by me on the following activities:
[ ] Review of old charts
[ ] Obtaining history from patient or surrogate
[ ] Ordering and review of the laboratory studies
[ ] Ordering and review of radiographic studies
[ ] Ordering and performing treatments and interventions
[ ] Patient patient's response to treatment
[ ] Development of treatment plan with patient or surrogate
ED Attending Note
-
Portions of this chart may have been created with voice recognition software.� Occasional wrong word or��sound alike� substitutions may have occurred due to the inherent limitations of voice recognition software.
Discharge Plan
Departure
Patient Disposition: Admit
Date of Disposition: 10/17/23
Time of Disposition: 12:47
Admit to: IMU
Presentation/result/management discussed w/ accepting MD/DO: Hospitalist
Discharge Problem:
Symptomatic anemia, Acute hyponatremia
Interventions
Interventions:
*Risk Screen - Suicide Last Done: 10/17/23 10:40
*General Assessment Last Done: 10/17/23 10:40
*Neglect/Abuse Screening Last Done: 10/17/23 10:40
[2023-10-17 11:42] LABS: % Basophils 0.8 % (0-2); % Eosinophils 7.6 % (0-6); % Immature Granulocytes 3.1 % (0-0.5); % Lymphocytes 3.2 % (20.5-51.1); % Monocytes 7.6 % (1.7-9.3); % Neutrophils 77.7 % (42.2-75.2); Absolute Basophils 0.1 10^3/uL (0-0.2); Absolute Eosinophils 1.1 10^3/uL (0-0.7); Absolute Immature Granulocytes 0.5 10^3/uL (0-0.05); Absolute Lymphocytes 0.5 10^3/uL (1.2-3.4); Absolute Monocytes 1.1 10^3/uL (0.1-0.6); Absolute Neutrophils 11.3 10^3/uL (1.4-6.5); Hemoglobin 7.1 g/dL (13.0-18.0); Mean Corp Hgb Conc. 35.1 g/dL (33.0-37.0); Mean Corpuscular Hgb 30.3 pg (27.0-31.0); Mean Corpuscular Volume 86.3 fL (80.0-94.0); Mean Platelet Volume 10.8 fL (7.4-10.4); Nucleated Red Blood Cells % 0.1 % (-); Platelet Count 154 10^3/uL (130-400); Red Blood Cell Count 2.34 10^6/uL (4.70-6.10); Red Cell Dist. Width 16.7 % (11.5-14.5); White Blood Cell Count 14.5 10^3/uL (4.8-10.8)
[2023-10-17 11:50] LABS: Hematocrit 20.2 % (39.0-52.0); INR 1.17; PT 14.9 Sec (11.4-14.6)
[2023-10-17 11:56] LABS: ALT (SGPT) 21 U/L (0-50); AST (SGOT) 23 U/L (17-59); Albumin 2.7 g/dl (3.5-5.0); Alkaline Phosphatase 118 U/L (38-126); Blood Urea Nitrogen 18 mg/dl (9-20); Carbon Dioxide 25 mmol/L (22-30); Chloride 95 mmol/L (98-107); Estimated Creatinine Clearance 51 ml/min; Glucose 102 mg/dl (70-99); Potassium 4.3 mmol/L (3.5-5.1); Sodium 127 mmol/L (135-145); Total Bilirubin 1.8 mg/dl (0.2-1.3); Total Protein 5.7 g/dl (6.3-8.2); eGFR > 60.00
[2023-10-17 12:00] LABS: Osmolality Serum 271 mOsm/kg (275-300)
[2023-10-17 12:05] LABS: NT-proBNP 1290 pg/ml; Troponin I < 0.012 ng/ml
[2023-10-17 13:17] LABS: LDH 249 U/L (120-246)
[2023-10-17 13:18] VITALS: BP 135/75
--- NOTE | 2023-10-17 13:40 | HPS.HSE ---
Addendum entered and electronically signed by Frantz Viera DO 10/17/23 14:52:
Patient seen and examined and discussed with KATEY Amaya, and I agree with her note.
Gen-AAOx3, NAD
HEENT-NC, AT, anicteric, clear oral mm
Neck-supple
CV-reg, no M, +S1/S2
Lungs-clear B/L
Abd-soft, NT, ND
Ext-no edema
Musculoskeletal-no cyanosis, clubbing
Skin-warm and dry
Neuro-grossly non-focal
Psych-calm, cooperative
Acute hypoxic respiratory insufficiency -possibly related to left-sided pleural effusion. Oxygenation normal on room air.
Recurrent left pleural effusion -exudative in nature. Unclear etiology. Chest x-ray shows left pleural effusion but improved compared to previous x-ray from last week. Check ultrasound of chest, assess if enough fluid for thoracentesis. Patient
is known to pulmonary, Dr. Davis.
Has had 3 thoracenteses in the past few weeks. Pleural fluid cytology has been negative.
Bradycardia/vasovagal episode -patient became bradycardic into the 30s on my assessment and had a near syncopal episode while lying in bed in the emergency room. Admit to telemetry. Monitor closely. Hold Toprol-XL. Check orthostatics.
Subacute normocytic anemia - presumably due to warm antibody autoimmune hemolytic anemia. Consult hematology. 1 unit of blood transfusion has been ordered. Hemoglobin was 13 at the end of September, 10.7 on October 08, 7.1 today. Elevated bilirubin
and LDH noted but mild in nature. 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
Chronic hyponatremia -known to Dr. Curiel, he recommends increasing dose of salt tablets and monitoring labs.. Continue salt tablets, fluid restriction. Consult nephrology if it worsens. Hold NSAIDs as they can worsen hyponatremia.
Essential hypertension -hold metoprolol given bradycardia.
Hypothyroidism -continue Synthroid.
Full code
updated at the bedside.
Original Note:
Family Physician
-
Family Physician: Santiago Garvin
Chief Complaint
-
Abnormal Blood Work
History of Present Illness
Patient is a 78 y/o male past medical history of hypertension, hypothyroidism, hemolytic anemia, and bullous pemphigoid who presents abnormal labs. Patient denies any specific complaints at the present time. He notes lower extremity which chronic
and unchanged. He reports mild shortness of breath with exertion. He denies fevers, sweats or chills.
Medical History
Past Medical History
Past Medical History: Reports Other
Additional Past Medical History:
Essential Hypertension
Hypothyroidism
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
Bullous Pemphigoid
Exudative Left Pleural Effusion
Chronic Hypotension
Chronic Lower Extremity Edema
Past Surgical History: Reports Other
Additional Past Surgical History:
Left Thoracentesis
Tonsillectomy
Social History
Tobacco: Non-smoker
Alcohol: None
Drug: None
Personal:
Living: With Family ()
Employment: Retired
Family History
Family History: Not pertinent
Allergies / Home Medications
Allergies reflects when Allergies were last updated in [facility].
Home Medications with original date entered in [facility]
Allergy/Medication List:
Allergies
Allergy/AdvReac Type Severity Reaction Status Date / Time
amlodipine Allergy Intermediate Unknown Verified 10/17/23 10:37
Home Medications
metoprolol succinate 50 mg tablet,extended release 24 hr 50 mg PO BID Heart disease/condition 03/03/11
levothyroxine 75 mcg tablet 75 mcg PO DAILY Thyroid 12/03/18
betamethasone dipropionate 0.05 % topical cream 1 applic topical HSPRN PRN back and side of abd 09/26/23
folic acid 1 mg tablet 1 mg PO DAILY Supplement 09/26/23
cholecalciferol (vitamin D3) 25 mcg (1,000 unit) tablet 1,000 unit PO DAILY 30 days #30 tabs 09/30/23
ibuprofen 200 mg tablet (Advil) 200 mg PO Q6HPRN PRN sleep/chest pains 10/17/23
polyethylene glycol 3350 17 gram oral powder packet (HealthyLax) 17 g PO DAILYPRN PRN constipation 10/17/23
sodium chloride 1,000 mg soluble tablet 1,000 mg PO BID 10/17/23
torsemide 10 mg tablet 10 mg PO BID 10/17/23
Review of Systems
-
A 12 point ROS was completed and negative except as noted: Yes
Constitutional: Denies Fever or Chills
Respiratory: Reports Trouble Breathing; Denies Cough
Cardiac: Denies Chest Pain or Palpitations
Physical Exam
Vital Signs
Vital Signs
Temp Pulse Resp BP Pulse Ox
97.7 F 90 18 112/68 98
10/17/23 10:37 10/17/23 10:37 10/17/23 10:37 10/17/23 10:37 10/17/23 10:37
Physical Exam
General: Comfortable and Conversant
HEENT: Anicteric and Moist mucous membranes
Respiratory: Clear and Non Labored Respirations
Cardiac: S1/S2 and Regular Rhythm
GI: Soft and Non Tender
Rectal: Hem Negative (Per ED Provider)
Musculoskeletal: No Clubbing, No Cyanosis and Other (+1 pitting edema bilateral lower extremities)
Skin: Warm and Dry
Neuro: Awake, Alert, Oriented and Nonfocal/grossly intact
Laboratory Results
-
10/17/23 11:29
10/17/23 11:29
Laboratory Results
PT 14.9 Sec (11.4-14.6) H 10/17/23 11:29
INR 1.17 10/17/23 11:29
Total Bilirubin 1.8 mg/dl (0.2-1.3) H 10/17/23 11:29
AST 23 U/L (17-59) 10/17/23 11:29
ALT 21 U/L (0-50) 10/17/23 11:29
Alkaline Phosphatase 118 U/L (38-126) 10/17/23 11:29
Troponin I < 0.012 ng/ml 10/17/23 11:29
Data Reviewed
-
Diagnostic Radiology: Report Reviewed by me
Lab Data: Labs Reviewed by me
Old Records: Reviewed
Impression/Plan
-
Acute Normocytic Anemia
-Patient with prior history of hemolytic anemia
-Consult Hematology
-Plan for transfusing but pending due to antibiotics
Acute on Chronic Hyponatremia
-Patient unable to afford Urea-Na
-Increase sodium chloride to TID
-Continue Torsemide
-Continue fluid restriction
-Consider nephrology consult if sodium level is not improving
Recurrent Left Exudative Pleural Effusion
-CXR appears to be improving
-Check Chest US to evaluate if repeat thoracentesis is needed
Essential Hypertension
-Patient had possible vaso-vagal episode in ED with heart rate going down into 30s
-Hold metoprolol
-Monitor on Telemetry
Hypothyroidism
-TSH normal earlier this month
-Continue Synthroid
DVT proph: SCDs
Code Status: Full Code
[2023-10-17 14:00] VITALS: BP 127/67
[2023-10-17 14:57] LABS: Direct Bilirubin 0.5 mg/dl (0.0-0.4); Iron 65 ug/dl (49-181)
[2023-10-17 15:00] VITALS: BP 132/70
[2023-10-17 15:03] LABS: Reticulocyte Count 7.9 % (0.4-2.8)
[2023-10-17 15:07] LABS: Percent Saturation 36 % (20-50); Total Iron Binding Capacity 179 ug/dl (261-462)
[2023-10-17 16:05] LABS: Folate > 20.0 ng/ml (2.76-20); Vitamin B12 199 pg/ml (239-931)
--- NOTE | 2023-10-17 16:16 | PTCARENOTE ---
pt admitted from ED AOx3 denies pain. LLL diminished, RLCTA on RA. abd soft, non-tender. +BSx4. cont b&B. pt has DX of bollus pemphigoid and has two open blisters on right distal foot. skin is otherwise intact. +1 LE pitting edema B/L. CB in reach
[2023-10-17] MEDS: SODIUM CHLORIDE 1 GRAM PO ×2 (17:14→21:20)
[2023-10-17] MEDS: DEMADEX 10 MG PO (17:14)
[2023-10-17 19:30] VITALS: BP 125/70
[2023-10-17 23:00] VITALS: BP 123/64
[2023-10-17] MEDS: BENADRYL 25 MG PO (23:38)
[2023-10-17] MEDS: DIPROSONE CREAM 0.05% 1 APPLIC TOPICAL (23:38)
[2023-10-18] VITALS (7 sets, daily range): BP systolic 118–138; BP diastolic 64–80; PULSE 88–111
--- NOTE | 2023-10-18 04:00 | PTCARENOTE ---
Patient ambulating back to bed from bathroom, observed by RN to be unsteady. Patient assisted back to bed, states he feels 'weak'. Per blood bank, still awaiting for [place] to deliver PRBC. This RN reviewed fall precautions with patient and
patient agreeable to using urinal/ bedside at this time. Patient ringing appropriately for assistance. Care ongoing.
[2023-10-18] MEDS: SYNTHROID 75 MCG PO (06:03)
[2023-10-18 06:28] LABS: Mean Corpuscular Hgb 31.8 pg (27.0-31.0); Mean Corpuscular Volume 88.4 fL (80.0-94.0); Mean Platelet Volume 11.5 fL (7.4-10.4); Platelet Count 145 10^3/uL (130-400); Red Blood Cell Count 1.98 10^6/uL (4.70-6.10); Red Cell Dist. Width 19.4 % (11.5-14.5); White Blood Cell Count 15.1 10^3/uL (4.8-10.8)
[2023-10-18 06:53] LABS: Blood Urea Nitrogen 15 mg/dl (9-20); Calcium 7.6 mg/dl (8.4-10.2); Carbon Dioxide 22 mmol/L (22-30); Chloride 95 mmol/L (98-107); Estimated Creatinine Clearance 51 ml/min; Glucose 86 mg/dl (70-99); Potassium 3.9 mmol/L (3.5-5.1); Sodium 126 mmol/L (135-145); eGFR > 60.00
[2023-10-18 07:02] LABS: Hematocrit 17.5 % (39.0-52.0); Hemoglobin 6.3 g/dL (13.0-18.0)
[2023-10-18] MEDS: SODIUM CHLORIDE 1 GRAM PO ×3 (09:10→21:35)
[2023-10-18] MEDS: VITAMIN D3 (cholecalciferol) 25 MCG PO (09:10)
[2023-10-18] MEDS: DEMADEX 10 MG PO ×2 (09:10→17:28)
--- NOTE | 2023-10-18 09:35 | W.PN.HOSP.TC ---
Today's Communication/Plan
-
Follow-up chest ultrasound results
Check orthostatics
Blood transfusion
Monitor hemoglobin
Monitor sodium
Neurology consult
Hematology consult
Assessment / Plan
Assessment / Plan
Gen-AAOx3, NAD
HEENT-NC, AT, anicteric, clear oral mm
Neck-supple
CV-reg, no M, +S1/S2
Lungs-clear B/L
Abd-soft, NT, ND
Ext-no edema
Musculoskeletal-no cyanosis, clubbing
Skin-warm and dry
Neuro-grossly non-focal
Psych-calm, cooperative
Acute hypoxic respiratory insufficiency -possibly related to left-sided pleural effusion.� Oxygenation normal on room air. Component of symptomatic anemia due to acute on chronic anemia noted.
Recurrent left pleural effusion -exudative in nature.� Unclear etiology.� Chest x-ray shows left pleural effusion but improved compared to previous x-ray from last week.� Check ultrasound of chest, assess if enough fluid for thoracentesis.� Patient
is known to pulmonary, Dr. Davis.
Has had 3 thoracenteses in the past few weeks.� Pleural fluid cytology has been negative.
Bradycardia/vasovagal episode -patient became bradycardic into the 30s on my assessment and had a near syncopal episode while lying in bed in the emergency room.� Continue telemetry monitoring.� Hold Toprol-XL.� Check orthostatics. Heart rate
currently 90-100. If remains stable, can resume metoprolol at half the home dose.
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 1 unit of blood transfusion has been ordered.� Hemoglobin was 13 at the end of September, 10.7 on October 08, 7.1 on admission, 6.3 today.�
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 Still waiting for blood transfusion.
Chronic hyponatremia -known to Dr. Curiel, he recommends increasing dose of salt tablets and monitoring labs..� Continue salt tablets, fluid restriction.� Consult nephrology if it worsens.� Hold NSAIDs as they can worsen hyponatremia. Sodium 126
this morning. If it worsens, will need tolvaptan.
Essential hypertension -hold metoprolol given bradycardia.
Hypothyroidism -continue Synthroid.
Difficulty with reading comprehension -patient now tells me symptoms started a week ago when he was discharged from the hospital. At that time had a headache. Currently denies headache. Denies history of stroke or TIA. Will consult neurology.
He states that the reading comprehension is improving compared to last week.
Full code
Anticipated Discharge: 24 - 48 hours
Subjective/Interval History
-
Date of Service: October 18, 2023
Patient seen and examined. Complaining of fatigue. Also now complaining of difficulty with reading comprehension that started a week ago but now improving. Denies headache currently. Denies vision changes.
Objective Data
-
Labs:
Laboratory Results
10/18/23
05:02
WBC 15.1 H
Hgb 6.3 L*
Hct 17.5 L*
Plt Count 145
Sodium 126 L
Potassium 3.9
Chloride 95 L
Carbon Dioxide 22
BUN 15
Creatinine 0.7
Glucose 86
Calcium 7.6 L
Vital Signs:
Vital Signs
Temp Pulse Resp BP Pulse Ox
97.5 F 93 18 118/66 94
10/18/23 07:00 10/18/23 09:10 10/18/23 07:00 10/18/23 09:10 10/18/23 07:00
I&O
10/17/23 10/18/23 10/19/23
06:59 06:59 06:59
Intake Total 120 / 120
Balance 120 / 120
Review of Systems
-
History Source: Patient
All other systems: Reviewed and negative
--- NOTE | 2023-10-18 10:03 | CON.ONC ---
Addendum entered and electronically signed by Nils Frye MD 10/19/23 05:15:
I saw and examined the patient.
The GENERAL UTILITY WORKER's note was reviewed and I agree with the note.
Laboratory Tests
10/17/23
11:29
Vitamin B12 199 L
Comment:
IMP:
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
B12 deficiency
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
Awaiting PRBC (least incompatible unit) from [facility].
Prednisone 1mg/kg daily
Protonix 40mg daily
Folic acid 1mg daily
B12 1000mcg daily
Original Note:
Impression
Impression
Acute normocytic anemia
Hx warm antibody autoimmune hemolytic anemia
Recurrent left pleural effusion s/p thoracentesis x3 w/ negative cytology
Neutrophilia
Leukocytosis
Reticulocytosis
Chronic hyponatremia
Plan
Plan
10/18 Hgb 6.3, Hct 17.5
Transfuse as needed to maintain Hgb >7
1unit PRBCs ordered - awaiting blood products from the [facility]
Initiate Prednisone 1mg/kg daily
Protonix 40mg daily
Folic acid 1mg daily
B12 1000mcg daily
IV iron is not indicated at this time
Thoracentesis as needed
Falls precautions
We will follow.
Patient History
History of Present Illness
Santiago uCi is a 78 year old male known to Dr. Rojas with [facility] for history of autoimmune hemolytic anemia. He was found to have significant lab changes following a COVID-19 vaccination with a Hgb of 4. He responded quickly to 4units of
blood. His Hgb improved to 9.1 on 10/30/22. Workup was consistent with warm autoantibody hemolytic anemia. He has history of very early stage colorectal cancer which did not require treatment.
Patient presented to the ER yesterday, 10/17/23, with complaints of worsening shortness of breath and dyspnea on exertion. He has been seen frequently in the ER in the recent weeks for thoracentesis. Cytology thus far has been negative. Outpatient
labs showed downward trend of Hemoglobin. He denies bloody stools.
Past-Medical/Surgical History
Acquired hemolytic anemia (responded well to steroids)
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
Hx early stage colorectal cancer
Hypertension
Hypothyroidism
Chronic hyponatremia
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
Chronic lower extremity edema
Former smoker
Tonsillectomy
Patient Medication
Medication Instructions Recorded Confirmed Last Taken Type
metoprolol succinate 50 mg 50 mg PO BID Heart 03/03/11 10/17/23 10/16/23 History
tablet,extended release 24 hr disease/condition
levothyroxine 75 mcg tablet 75 mcg PO DAILY Thyroid 12/03/18 10/17/23 10/17/23 History
betamethasone dipropionate 0.05 % 1 applic topical HSPRN PRN back 09/26/23 10/17/23 10/07/23 History
topical cream and side of abd
folic acid 1 mg tablet 1 mg PO DAILY Supplement 09/26/23 10/17/23 10/17/23 History
cholecalciferol (vitamin D3) 25 1,000 unit PO DAILY 30 days #30 09/30/23 10/17/23 10/17/23 Rx
mcg (1,000 unit) tablet tabs
ibuprofen 200 mg tablet (Advil) 200 mg PO Q6HPRN PRN sleep/chest 10/17/23 10/17/23 10/16/23 History
pains
polyethylene glycol 3350 17 gram 17 g PO DAILYPRN PRN constipation 10/17/23 10/17/23 Unknown History
oral powder packet (HealthyLax)
sodium chloride 1,000 mg soluble 1,000 mg PO BID 10/17/23 10/17/23 10/17/23 History
tablet
torsemide 10 mg tablet 10 mg PO BID 10/17/23 10/17/23 10/17/23 History
Active Medications
Generic Name Dose Route Start Last Admin
Trade Name Freq PRN Reason Stop Dose Admin
Acetaminophen 650 mg 10/17/23 15:43
Acetaminophen 325 Mg Tablet PO 11/14/23 15:42
Q4HPRN PRN
mild pain/ fever>100.5F
Betamethasone Dipropionate 0 applic 10/17/23 22:56 10/17/23 23:38
Betamethasone Dipropionate 0.05% (Cream) 15 Gram Tube TOPICAL 11/14/23 22:55 1 applic
HSPRN PRN Administration
back and side of abd
Cholecalciferol 25 mcg 10/18/23 08:00 10/18/23 09:10
Cholecalciferol (Vitamin D3) 25 Mcg Tablet (1,000 Units) PO 11/15/23 07:59 25 mcg
DAILY KAY Administration
Levothyroxine Sodium 75 mcg 10/18/23 07:00 10/18/23 06:03
Levothyroxine 75 Mcg Tablet PO 11/15/23 06:59 75 mcg
DAILY AT 0700 KAY Administration
Sodium Chloride 1 gram 10/17/23 16:00 10/18/23 09:10
Sodium Chloride 1 Gram Tablet PO 11/14/23 15:59 1 gram
TID KAY Administration
Sodium Chloride 0 flush 10/17/23 18:00
Sodium Chloride 0.9% (Flush) Syringe IV 11/14/23 17:59
PER PROTOCOL KAY
Torsemide 10 mg 10/17/23 17:00 10/18/23 09:10
Torsemide 5 Mg Tablet PO 11/14/23 16:59 10 mg
BID AT 0800,1600 KAY Administration
09/27/23 Thoracentesis: Successful ultrasound-guided thoracentesis, yielding 1650 cc of straw colored pleural fluid.
Cytology negative for malignant cells
10/09/23 Thoracentesis: Successful ultrasound-guided thoracentesis, yielding 1550 cc of clear yellow pleural fluid.
Cytology negative for malignant cells
10/17/23 CXR: Small left pleural effusion, with significant loculation along the posterior and lateral chest patel. Small amount of fissural fluid. Hazy opacity within the left mid and lower lung zone, which may represent pneumonia or subsegmental
atelectasis.
10/18/23 Chest US pending
Review of Systems
-
History Source: Patient, Family, Coordinated Provider and Records
Constitutional: Reports Fatigue and Weakness; Denies Fever or Chills
EENT: Reports No Symptoms
Respiratory: Reports Trouble Breathing (with ambulation)
Cardiac: Reports No Symptoms
GI: Reports No Symptoms
Breast: Reports N/A
: Reports No Symptoms
Musculoskeletal: Reports Edema
Skin: Reports Other
Neuro: Reports No Symptoms
Endocrine: Reports No Symptoms
Hematologic/Lymphatic: Reports Bruising
Allergy / Immunology: Reports No Symptoms
Psych: Reports No Symptoms
Physical Exam
-
Patient is lying in bed. Family at bedside. Patient denies acute pain. He denies SOB/JOHNSON. He tells me he was very weak when ambulating to the bathroom last evening and felt like he was going to fall.
General: Well Developed, Well Nourished, No Apparent Distress, Comfortable and Conversant
HEENT: Other (anicteric)
Cardiology: S1 and S2
Pulmonary: Other (diminished, room air)
GI: Normal Bowel Sounds and Distended
Genito-Urinary: Deferred by me
Musculoskeletal: Edema, Right Lower Extrem and Edema, Left Lower Extrem
Extremities: Pulses Present
Neurology: Non Focal
Skin: Warm, Dry, Jaundice and Other (scattered ecchymosis)
Psych: Calm
Labs
Lab Results
WBC 15.1 10^3/uL (4.8-10.8) H 10/18/23 05:02
RBC 1.98 10^6/uL (4.70-6.10) L 10/18/23 05:02
Hgb 6.3 g/dL (13.0-18.0) L* 10/18/23 05:02
Hct 17.5 % (39.0-52.0) L* 10/18/23 05:02
MCV 88.4 fL (80.0-94.0) 10/18/23 05:02
MCH 31.8 pg (27.0-31.0) H 10/18/23 05:02
MCHC 36.0 g/dL (33.0-37.0) 10/18/23 05:02
RDW 19.4 % (11.5-14.5) H 10/18/23 05:02
Plt Count 145 10^3/uL (130-400) 10/18/23 05:02
MPV 11.5 fL (7.4-10.4) H 10/18/23 05:02
Abs Immat Gran (auto) 0.5 10^3/uL (0-0.05) H 10/17/23 11:29
Absolute Neuts (auto) 11.3 10^3/uL (1.4-6.5) H 10/17/23 11:29
Absolute Lymphs (auto) 0.5 10^3/uL (1.2-3.4) L 10/17/23 11:29
Absolute Monos (auto) 1.1 10^3/uL (0.1-0.6) H 10/17/23 11:29
Absolute Eos (auto) 1.1 10^3/uL (0-0.7) H 10/17/23 11:29
Absolute Basos (auto) 0.1 10^3/uL (0-0.2) 10/17/23 11:29
Immature Gran % 3.1 % (0-0.5) H 10/17/23 11:29
Neutrophils % 77.7 % (42.2-75.2) H 10/17/23 11:29
Lymphocytes % 3.2 % (20.5-51.1) L 10/17/23 11:29
Monocytes % 7.6 % (1.7-9.3) 10/17/23 11:29
Eosinophils % 7.6 % (0-6) H 10/17/23 11:29
Basophils % 0.8 % (0-2) 10/17/23 11:29
Creatinine 0.7 mg/dL (0.7-1.3) 10/18/23 05:02
Vital Signs
Vital Signs
Temp Pulse Resp BP Pulse Ox
97.5 F 93 18 118/66 94
10/18/23 07:00 10/18/23 09:10 10/18/23 07:00 10/18/23 09:10 10/18/23 07:00
--- NOTE | 2023-10-18 10:07 | CON.NEURO ---
Addendum entered and electronically signed by Melody Dillard MD 10/18/23 12:39:
ASA 81 mg QD when feasible from hematology perspective.
Original Note:
Consultation
Order
Date of Consultation: 10/18/23
CC: ' I can not read'
HPI: This is a 78-year-old RH man who presented to [facility] on 10/17/2023 with symptomatic hemolytic anemia. Neurology consultation was requested for an evaluation and management of language dysfunction. According to the patient
she developed inability to read on 10/10-2022. He recalls transient headache associated with his symptoms. No reports of change in vision, speech, motor or sensory deficits.
ER VS: normotensive, intermittently tachycardic, afebrile.
EKG-NSR
PDMP: none
Labs: WBCs�14.5, hemoglobin�7.1�6.3, sodium�127�126, normal creatinine, vitamin B12�199.
LDL-103(10/08/2023).
PMH: autoimmune hemolytic anemia, HTN, DLP, hypothyroidism, osteoporosis
PSH: thoracentesis, polypectomy, tonsillectomy.
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
FH: Mother with breast cancer
All: Amlodipine
ROS:Constitutional: Negative. Negative for chills, fever and unexpected weight change.
HENT: Negative for ear pain, hearing loss, tinnitus and trouble swallowing.
Eyes: Negative. Negative for photophobia, pain and visual disturbance.
Respiratory: Positive for intermittent dyspnea
Cardiovascular: Negative for chest pain, palpitations and leg swelling.
Gastrointestinal: Negative for abdominal pain and vomiting.
Endocrine: Negative. Negative for cold intolerance.
Genitourinary: Negative for dysuria, flank pain and urgency.
Musculoskeletal: Negative for back pain, gait problem, neck pain and neck stiffness.
Skin: Negative for rash.
Allergic/Immunologic: Negative. Negative for immunocompromised state.
Neurological: Positive for alexia
Psychiatric/Behavioral: Negative for behavioral problems, confusion and hallucinations.
General: Well developed. In no acute distress.
Cardio: Regular rate and rhythm without murmur. Extremities are without cyanosis or edema.
Neuro:
Mental Status: Alert, oriented to person, place, and date. Impaired attention(unable to spell 'worls' backwards' and comprehension. Unable to read, able to spell. No agraphia, Mild expressive dysphasia. Good fund of knowledge. Follows complex
requests across the midline.
Cranial Nerves: . Pupils are equally round and reactive to light. EOMs full. Visual mancia full to confrontation. No ptosis. No nystagmus. V1-V3 intact to light touch and pinprick bilaterally, symmetric. Face symmetric. Normal hearing AU.
The palate elevated well. SCMs and traps 5/5. Tongue midline. No dysarthria.
Motor: Normal bulk and tone. No pronator or arm drift. Strength 5/5 throughout. No clonus.
Reflexes: 1+ throughout the upper extremities and knees. Plantar responses flexor bilaterally.
Sensory: Normal vibration and JPS.
Coordination: No dysmetria or tremor.
Gait: deferred
Assessment and Plan:
I. Subacute alexia without agraphia. 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
II. Vitamin B12 deficiency
III. Mild encephalopathy.
-Telemetry
-Please obtain brain MRI wo wade
-ASA 81 mg if no ICH on CT head
-Carotid Doppler US;
-DVT prophylaxis
I personally reviewed all radiology and labs along with past medical records pertinent to current medical problems.
Thank you for allowing us to participate in the care of this patient. We will continue to follow. Please do not hesitate to contact us with any questions or concerns.
Subjective/Objective
Subjective Data
Date of Service: October 18, 2023
Objective Data
Vital Signs
Temp Pulse Resp BP Pulse Ox
36.4 C 93 18 118/66 94
10/18/23 07:00 10/18/23 09:10 10/18/23 07:00 10/18/23 09:10 10/18/23 07:00
Lab Results
10/18/23 05:02
10/18/23 05:02
PT 14.9 Sec (11.4-14.6) H 10/17/23 11:29
INR 1.17 10/17/23 11:29
Sodium 126 mmol/L (135-145) L 10/18/23 05:02
Potassium 3.9 mmol/L (3.5-5.1) 10/18/23 05:02
BUN 15 mg/dl (9-20) 10/18/23 05:02
Glucose 86 mg/dl (70-99) 10/18/23 05:02
Calcium 7.6 mg/dl (8.4-10.2) L 10/18/23 05:02
Zgg-B-Gtkfnbapfyp Pept 1290 pg/ml 10/17/23 11:29
Vitamin B12 199 pg/ml (239-931) L 10/17/23 11:29
Patient Allergies
amlodipine Allergy (Verified 10/17/23 23:03)
pt states it caused his sodium level to be low
Medications
-
Active Medications
Generic Name Dose Route Start Last Admin
Trade Name Freq PRN Reason Stop Dose Admin
Acetaminophen 650 mg 10/17/23 15:43
Acetaminophen 325 Mg Tablet PO 11/14/23 15:42
Q4HPRN PRN
mild pain/ fever>100.5F
Betamethasone Dipropionate 0 applic 10/17/23 22:56 10/17/23 23:38
Betamethasone Dipropionate 0.05% (Cream) 15 Gram Tube TOPICAL 11/14/23 22:55 1 applic
HSPRN PRN Administration
back and side of abd
Cholecalciferol 25 mcg 10/18/23 08:00 10/18/23 09:10
Cholecalciferol (Vitamin D3) 25 Mcg Tablet (1,000 Units) PO 11/15/23 07:59 25 mcg
DAILY KAY Administration
Levothyroxine Sodium 75 mcg 10/18/23 07:00 10/18/23 06:03
Levothyroxine 75 Mcg Tablet PO 11/15/23 06:59 75 mcg
DAILY AT 0700 KAY Administration
Sodium Chloride 1 gram 10/17/23 16:00 10/18/23 09:10
Sodium Chloride 1 Gram Tablet PO 11/14/23 15:59 1 gram
TID KAY Administration
Sodium Chloride 0 flush 10/17/23 18:00
Sodium Chloride 0.9% (Flush) Syringe IV 11/14/23 17:59
PER PROTOCOL KAY
Torsemide 10 mg 10/17/23 17:00 10/18/23 09:10
Torsemide 5 Mg Tablet PO 11/14/23 16:59 10 mg
BID AT 0800,1600 KAY Administration
Home Medications
Medication Instructions Recorded
metoprolol succinate 50 mg 50 mg PO BID Heart 03/03/11
tablet,extended release 24 hr disease/condition
levothyroxine 75 mcg tablet 75 mcg PO DAILY Thyroid 12/03/18
betamethasone dipropionate 0.05 % 1 applic topical HSPRN PRN back 09/26/23
topical cream and side of abd
folic acid 1 mg tablet 1 mg PO DAILY Supplement 09/26/23
cholecalciferol (vitamin D3) 25 1,000 unit PO DAILY 30 days #30 09/30/23
mcg (1,000 unit) tablet tabs
ibuprofen 200 mg tablet (Advil) 200 mg PO Q6HPRN PRN sleep/chest 10/17/23
pains
polyethylene glycol 3350 17 gram 17 g PO DAILYPRN PRN constipation 10/17/23
oral powder packet (HealthyLax)
sodium chloride 1,000 mg soluble 1,000 mg PO BID 10/17/23
tablet
torsemide 10 mg tablet 10 mg PO BID 10/17/23
Vital Signs and Labs
-
Vital Signs and Labs:
Vital Signs
Temp Pulse Resp BP Pulse Ox
36.4 C 93 18 118/66 94
10/18/23 07:00 10/18/23 09:10 10/18/23 07:00 10/18/23 09:10 10/18/23 07:00
Lab Results
10/18/23 05:02
10/18/23 05:02
PT 14.9 Sec (11.4-14.6) H 10/17/23 11:29
INR 1.17 10/17/23 11:29
Sodium 126 mmol/L (135-145) L 10/18/23 05:02
Potassium 3.9 mmol/L (3.5-5.1) 10/18/23 05:02
BUN 15 mg/dl (9-20) 10/18/23 05:02
Glucose 86 mg/dl (70-99) 10/18/23 05:02
Calcium 7.6 mg/dl (8.4-10.2) L 10/18/23 05:02
Vzi-Z-Gcqzdpielos Pept 1290 pg/ml 10/17/23 11:29
Vitamin B12 199 pg/ml (239-931) L 10/17/23 11:29
Home Medications
-
Home Medications
metoprolol succinate 50 mg tablet,extended release 24 hr 50 mg PO BID Heart disease/condition 03/03/11
levothyroxine 75 mcg tablet 75 mcg PO DAILY Thyroid 12/03/18
betamethasone dipropionate 0.05 % topical cream 1 applic topical HSPRN PRN back and side of abd 09/26/23
folic acid 1 mg tablet 1 mg PO DAILY Supplement 09/26/23
cholecalciferol (vitamin D3) 25 mcg (1,000 unit) tablet 1,000 unit PO DAILY 30 days #30 tabs 09/30/23
ibuprofen 200 mg tablet (Advil) 200 mg PO Q6HPRN PRN sleep/chest pains 10/17/23
polyethylene glycol 3350 17 gram oral powder packet (HealthyLax) 17 g PO DAILYPRN PRN constipation 10/17/23
sodium chloride 1,000 mg soluble tablet 1,000 mg PO BID 10/17/23
torsemide 10 mg tablet 10 mg PO BID 10/17/23
Medications
-
Medications:
Generic Name Dose Route Start Last Admin
Trade Name Freq PRN Reason Stop Dose Admin
Acetaminophen 650 mg 10/17/23 15:43
Acetaminophen 325 Mg Tablet PO 11/14/23 15:42
Q4HPRN PRN
mild pain/ fever>100.5F
Betamethasone Dipropionate 0 applic 10/17/23 22:56 10/17/23 23:38
Betamethasone Dipropionate 0.05% (Cream) 15 Gram Tube TOPICAL 11/14/23 22:55 1 applic
HSPRN PRN Administration
back and side of abd
Cholecalciferol 25 mcg 10/18/23 08:00 10/18/23 09:10
Cholecalciferol (Vitamin D3) 25 Mcg Tablet (1,000 Units) PO 11/15/23 07:59 25 mcg
DAILY KAY Administration
Folic Acid 1 mg 10/18/23 11:00
Folic Acid 1 Mg Tablet PO 11/15/23 10:59
DAILY KAY
Levothyroxine Sodium 75 mcg 10/18/23 07:00 10/18/23 06:03
Levothyroxine 75 Mcg Tablet PO 11/15/23 06:59 75 mcg
DAILY AT 0700 KAY Administration
Pantoprazole Sodium 40 mg 10/18/23 11:00
Pantoprazole 40 Mg Delayed Release Tablet PO 11/15/23 10:59
DAILY KAY
Sodium Chloride 1 gram 10/17/23 16:00 10/18/23 09:10
Sodium Chloride 1 Gram Tablet PO 11/14/23 15:59 1 gram
TID KAY Administration
Sodium Chloride 0 flush 10/17/23 18:00
Sodium Chloride 0.9% (Flush) Syringe IV 11/14/23 17:59
PER PROTOCOL KAY
Torsemide 10 mg 10/17/23 17:00 10/18/23 09:10
Torsemide 5 Mg Tablet PO 11/14/23 16:59 10 mg
BID AT 0800,1600 KAY Administration
[2023-10-18] MEDS: FOLVITE 1 MG PO (10:48)
[2023-10-18] MEDS: DELTASONE 40 MG PO (10:48)
[2023-10-18] MEDS: PROTONIX 40 MG PO (10:48)
[2023-10-18] MEDS: VITAMIN B-12 1000 MCG PO (10:48)
[2023-10-18 12:15] LABS: Osmolality Urine 426 mOsm/kg (300-900)
[2023-10-18 12:43] LABS: Urine Sodium 98 mmol/L (30-90)
[2023-10-18] MEDS: ASPIR LOW (ENTERIC COATED) 81 MG PO (13:49)
--- NOTE | 2023-10-18 17:17 | CM ---
Alert awake oriented patient who lives with his Melvina who lives in a 2 story home with 3 step to enter and 14 steps to bed and bathroom. He is independent in driving and in all activities of daily living.He was offered VN he declined need.
No VN hx / No SNF history
Pharmacy [facility]
PCP DR Florez
PLAN Home Declined VN
[2023-10-18] MEDS: LIPITOR 40 MG PO (17:28)
[2023-10-19] VITALS (11 sets, daily range): BP systolic 111–133; BP diastolic 51–71; BMI 27.0
--- NOTE | 2023-10-19 05:28 | PTCARENOTE ---
Call received from blood bank at approximately 2300 that they were notified by [facility] that PRBC may be ready within the next 4-6 hours. Still awaiting PRBC at this time.
[2023-10-19 05:36] LABS: % Basophils 0.4 % (0-2); % Eosinophils 1.1 % (0-6); % Immature Granulocytes 2.4 % (0-0.5); % Monocytes 7.3 % (1.7-9.3); % Neutrophils 84.8 % (42.2-75.2); Absolute Basophils 0.1 10^3/uL (0-0.2); Absolute Eosinophils 0.2 10^3/uL (0-0.7); Absolute Immature Granulocytes 0.4 10^3/uL (0-0.05); Absolute Lymphocytes 0.6 10^3/uL (1.2-3.4); Absolute Monocytes 1.1 10^3/uL (0.1-0.6); Absolute Neutrophils 12.6 10^3/uL (1.4-6.5); Mean Corp Hgb Conc. 36.2 g/dL (33.0-37.0); Mean Corpuscular Hgb 31.1 pg (27.0-31.0); Mean Corpuscular Volume 85.8 fL (80.0-94.0); Nucleated Red Blood Cells % 0.1 % (-); Platelet Count 154 10^3/uL (130-400); Red Cell Dist. Width 19.5 % (11.5-14.5); White Blood Cell Count 14.9 10^3/uL (4.8-10.8)
[2023-10-19 06:02] LABS: Hematocrit 16.3 % (39.0-52.0); Hemoglobin 5.9 g/dL (13.0-18.0)
[2023-10-19 06:05] LABS: ALT (SGPT) 20 U/L (0-50); AST (SGOT) 22 U/L (17-59); Albumin 2.8 g/dl (3.5-5.0); Alkaline Phosphatase 120 U/L (38-126); Blood Urea Nitrogen 18 mg/dl (9-20); Calcium 7.8 mg/dl (8.4-10.2); Carbon Dioxide 26 mmol/L (22-30); Chloride 98 mmol/L (98-107); Estimated Creatinine Clearance 51 ml/min; Glucose 97 mg/dl (70-99); HDL Cholesterol 20 mg/dl; LDL Cholesterol, Calculated 112 mg/dl; Potassium 3.7 mmol/L (3.5-5.1); Sodium 127 mmol/L (135-145); Total Bilirubin 1.9 mg/dl (0.2-1.3); Total Cholesterol 161 mg/dl (50-199); Total Protein 5.8 g/dl (6.3-8.2); Triglyceride 147 mg/dl (10-149); Very Low Density Lipoprotein 29 mg/dl (0-30); eGFR > 60.00
--- NOTE | 2023-10-19 06:12 | PTCARENOTE ---
Critical Hgb and Hct reported to [facility]. Still awaiting PRBC, blood bank aware. No new orders received.
[2023-10-19] MEDS: SYNTHROID 75 MCG PO (06:25)
[2023-10-19] MEDS: ASPIR LOW (ENTERIC COATED) 81 MG PO (08:34)
[2023-10-19] MEDS: VITAMIN D3 (cholecalciferol) 25 MCG PO (08:34)
[2023-10-19] MEDS: DEMADEX 10 MG PO (08:34)
[2023-10-19] MEDS: SODIUM CHLORIDE 1 GRAM PO (08:34)
[2023-10-19] MEDS: PROTONIX 40 MG PO (08:34)
[2023-10-19] MEDS: FOLVITE 1 MG PO (08:34)
[2023-10-19] MEDS: VITAMIN B-12 1000 MCG PO (08:34)
[2023-10-19] MEDS: DELTASONE 40 MG PO (08:34)
--- NOTE | 2023-10-19 09:43 | W.PN.NEURO.1 ---
Today's Communication / Plan
-
.
Subjective/Objective
Subjective Data
Date of Service: October 19, 2023
Mr. Cui reports no complaints. He has been normotensive.
Continues to have difficulties with reading.
Brain MRI wo [facility](10/18/2023)-large acute L KINESIOTHERAPIST, multiple bilateral watershed distribution infarcts.
Hb-5.9
EKG-NSR
PDMP: none
LDL-103(10/08/2023).
PMH:�h/o provoked seizure due to hyponatremia, autoimmune hemolytic anemia, bullous pemphigoid, SIADH, HTN, DLP, hypothyroidism, vit D deficiency, BPH, osteoporosis
PSH: thoracentesis, polypectomy, tonsillectomy.
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
FH: Mother with breast cancer
All: Amlodipine
ROS:Constitutional: Negative. Negative for chills, fever and unexpected weight change.
HENT: Negative for ear pain, hearing loss, tinnitus and trouble swallowing.
Eyes: Negative. Negative for photophobia, pain and visual disturbance.
Respiratory: Positive for intermittent dyspnea
Cardiovascular: Negative for chest pain, palpitations and leg swelling.
Gastrointestinal: Negative for abdominal pain and vomiting.
Endocrine: Negative. Negative for cold intolerance.
Genitourinary: Negative for dysuria, flank pain and urgency.
Musculoskeletal: Negative for back pain, gait problem, neck pain and neck stiffness.
Skin: Negative for rash.
Allergic/Immunologic: Negative. Negative for immunocompromised state.
Neurological: Positive for alexia, intermittent confusion
Psychiatric/Behavioral: Negative for behavioral problems, confusion and hallucinations.
�
�
General: Well developed. In no acute distress.
Cardio: Regular rate and rhythm without murmur. Extremities are without cyanosis or edema.
Neuro:
Mental Status: Alert, oriented to person, place, and date.� Impaired attention(unable to spell 'worls' backwards' and comprehension. Unable to read, able to spell. No agraphia, Mild expressive dysphasia. Good fund of knowledge. Follows complex
requests across the midline.
Cranial Nerves: . Pupils are equally round and reactive to light.� EOMs full.� Visual mancia full to confrontation.� No ptosis.� No nystagmus.� V1-V3 intact to light touch and pinprick bilaterally, symmetric.� Face symmetric.� Normal hearing AU.�
The palate elevated well.� SCMs and traps 5/5.� Tongue midline.� No dysarthria.
Motor:� � � � Normal bulk and tone.� No pronator or arm drift.� Strength 5/5 throughout. No clonus.
Reflexes: � � � � � � 1+ throughout the upper extremities and knees. � Plantar responses flexor bilaterally.
Sensory: � � Normal vibration and JPS.
Coordination: No dysmetria or tremor.�
Gait: � � � � � deferred
Assessment and Plan:
�
�
I. Acute bihemispheric strokes with the largest in the L KINESIOTHERAPIST vascular distribution. 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
II.� Vitamin B12 deficiency
III. Mild encephalopathy(vascular, metabolic)
-Telemetry
-Start ASA 81 mg QD when feasible
-TTE
-Speech therapy
-DVT prophylaxis
-The case was discussed with patient's spouse over the phone.
I personally reviewed all radiology and labs along with past medical records pertinent to current medical problems. Total time spent in patient care is 35 minutes.
�
Thank you for allowing us to participate in the care of this patient. We will continue to follow. Please do not hesitate to contact us with any questions or concerns.
�
Objective Data
Vital Signs
Temp Pulse Resp BP Pulse Ox
36.4 C 71 14 120/67 95
10/19/23 07:31 10/19/23 08:34 10/19/23 07:31 10/19/23 08:34 10/19/23 07:31
Lab Results
10/19/23 05:08
10/19/23 05:08
PT 14.9 Sec (11.4-14.6) H 10/17/23 11:29
INR 1.17 10/17/23 11:29
Sodium 127 mmol/L (135-145) L 10/19/23 05:08
Potassium 3.7 mmol/L (3.5-5.1) 10/19/23 05:08
BUN 18 mg/dl (9-20) 10/19/23 05:08
Glucose 97 mg/dl (70-99) 10/19/23 05:08
Calcium 7.8 mg/dl (8.4-10.2) L 10/19/23 05:08
Jlf-Y-Yonpojtupbv Pept 1290 pg/ml 10/17/23 11:29
LDL Cholesterol, Calc 112 mg/dl 10/19/23 05:08
Vitamin B12 199 pg/ml (239-931) L 10/17/23 11:29
Patient Allergies
amlodipine Allergy (Verified 10/17/23 23:03)
pt states it caused his sodium level to be low
--- NOTE | 2023-10-19 11:40 | W.PN.ONC ---
Addendum entered and electronically signed by Merline Osullivan MD 10/19/23 16:24:
Patient seen and examined
Continue steroids, started 10/18
For transfusion x2u prbcs today, least incompatible units per [facility]
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 Mgmt per neurology.
DVT ppx
Original Note:
Today's Communication / Plan
-
10/18 Hgb 5.9, Hct 16.3
Transfuse as needed to maintain Hgb >7
Awaiting blood products from the [facility] being performed
CBC w/ diff daily
Continue Prednisone 1mg/kg daily with Protonix 40mg daily
Folic acid 1mg daily
B12 1000mcg daily
Thoracentesis as needed
Brain MRI/Head CT per Neurology
Falls precautions
We will follow. Await blood from [facility].
Impression
Impression
Acute normocytic anemia
Hx warm antibody autoimmune hemolytic anemia
Recurrent left pleural effusion s/p thoracentesis x3 w/ negative cytology
Neutrophilia
Leukocytosis
Reticulocytosis
Chronic hyponatremia
Subjective/Objective
Subjective/Objective
Patient is resting comfortably in bed. he states he feels fine despite Hgb of 5.9. He is frustrated waiting for blood products. he tells me he has been having difficulty reading which prompted a neurology consult.
Vital Signs:
Vital Signs
Temp Pulse Resp BP Pulse Ox
97.7 F 85 16 130/68 95
10/19/23 11:21 10/19/23 11:21 10/19/23 11:21 10/19/23 11:21 10/19/23 11:21
physical exam:
aaox3, pleasant/cooperative
+1 LE edema
scattered bruising in various stages of healing noted
Lab Results:
Laboratory Data
WBC 14.9 10^3/uL (4.8-10.8) H 10/19/23 05:08
Hgb 5.9 g/dL (13.0-18.0) L* 10/19/23 05:08
Plt Count 154 10^3/uL (130-400) 10/19/23 05:08
PT 14.9 Sec (11.4-14.6) H 10/17/23 11:29
INR 1.17 10/17/23 11:29
eGFR > 60.00 10/19/23 05:08
10/17 CXR: Moderate left pleural effusion. Grossly stable. On the prior chest x-ray, this is loculated.
Orders
Orders
Orders From Last 24 Hours
10/18/23 11:00
Cyanocobalamin [Vitamin B-12] 1,000 mcg PO DAILY
FOLic ACID [Folvite] 1 mg PO DAILY
Pantoprazole [Protonix] 40 mg PO DAILY
Prednisone [Deltasone] 40 mg PO DAILY
--- NOTE | 2023-10-19 11:52 | W.PN.HOSP.TC ---
Today's Communication/Plan
-
Transfuse PRBC once cleared by hematology.
Once stable from anemia will arrange for left thoracentesis and MRA of head and neck.
Consult cardiology.
Assessment / Plan
Assessment / Plan
Shortness of breath-suspect combination of combination of moderate left pleural effusion and anemia. � Oxygenation normal on room air. Component of symptomatic anemia due to acute on chronic anemia noted.
Recurrent left pleural effusion -exudative in nature.� Unclear etiology.� Chest x-ray shows left pleural effusion but improved compared to previous x-ray from last week.� ultrasound of chest shows moderate pleural effusion. Will arrange for
thoracentesis once more stable from anemia standpoint. He follows with a local manager trading who is going to get a possible thoracentesis this week depending on the level of fluid. Patient is known to pulmonary, Dr. Davis.
Has had 3 thoracenteses in the past few weeks.� Pleural fluid cytology has been negative.
Bradycardia/vasovagal episode -patient became bradycardic into the 30s on my assessment and had a near syncopal episode while lying in bed in the emergency room.� Continue telemetry monitoring.� Hold Toprol-XL.� Heart rate currently stable. If
remains stable, can resume metoprolol at half the home dose.
Subacute normocytic anemia - presumably due to warm antibody autoimmune hemolytic anemia.� Consulted hematology. 1 unit of blood transfusion has been ordered.� Hemoglobin was 13 at the end of September, 10.7 on October 08, 7.1 on admission, 6.3
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
Patient has 2 units of blood and blood bank which is least incompatible. 3 out of 11 antigens are positive. In view of autoimmune hemolysis and at the same time having acute stroke I would wait for hematology to weigh in before transfusing PRBC.
Difficulty with reading comprehension-Acute ischemic stroke-in the various vascular territories. Worrisome for embolic. There is 1 transient episode of SVT on telemetry so far. Consult cardiology. Continue to follow telemetry. Check MRA head
and neck once stable from anemia standpoint. Patient has autoimmune processes as well unclear if this is autoimmune process thrombosis. Continue with aspirin. Neurology following.
Chronic hyponatremia -known to Dr. Curiel, he recommends increasing dose of salt tablets and monitoring labs..� Continue salt tablets, fluid restriction.� Consult nephrology if it worsens.� Hold NSAIDs as they can worsen hyponatremia. Sodium 126
this morning. If it worsens, will need tolvaptan.
Essential hypertension -hold metoprolol given bradycardia.
Hypothyroidism -continue Synthroid.
DW RN
DW Hemtology -will review and order blood
DW at bedside
Full code
Anticipated Discharge: > 48 hours
Subjective/Interval History
-
Date of Service: October 19, 2023
Patient apart from weakness and fatigue has no specific anemia symptoms. Denies any chest pain, palpitations, shortness of breath. No dizziness.
A week ago he started to have a headache and then had difficulty in reading but not having any vision problems. He says after reading the word he cannot read the next 2 words. No new symptoms in that aspect.
Denies any double vision. No limb weakness. No sensory disturbances in the legs.
He had 1 episode of hemolytic anemia a year ago for which he had 4 units of blood transfusion and went on steroids.
Denies any prior history of stroke.
Objective Data
-
Labs:
Laboratory Results
10/19/23
05:08
WBC 14.9 H
Hgb 5.9 L*
Hct 16.3 L*
Plt Count 154
Sodium 127 L
Potassium 3.7
Chloride 98
Carbon Dioxide 26
BUN 18
Creatinine 0.7
Glucose 97
Calcium 7.8 L
Total Bilirubin 1.9 H
AST 22
ALT 20
Alkaline Phosphatase 120
Vital Signs:
Vital Signs
Temp Pulse Resp BP Pulse Ox
97.7 F 85 16 130/68 95
10/19/23 11:21 10/19/23 11:21 10/19/23 11:21 10/19/23 11:21 10/19/23 11:21
I&O
10/18/23 10/19/23 10/20/23
06:59 06:59 06:59
Intake Total 120 / 120 1080 / 1080
Output Total 1950 / 1949
Balance 120 / 120 -870 / -870
Review of Systems
-
Constitutional: Denies Fever or Chills
EENT: Denies Sore Throat
Respiratory: Denies Cough or Trouble Breathing
Abdomen/GI: Denies Abdominal Pain, Nausea or Vomiting
Neuro: Denies Dizzy or Weakness
Physical Exam
-
General: No Apparent Distress
HEENT: Moist Mucous Membranes
Respiratory: Non Labored Respirations and Decreased Breath Sounds (Decreased breath sounds in the left base ); Negative Wheezes or Accessory Resp Muscle Use
Cardiac: Regular Rhythm and S1/S2
GI: Soft
Neuro: AO x 3; Negative No Motor Deficits
Psych: Calm; Negative Confused
Data Reviewed
-
MRI: Report Reviewed by me (MRI of the brain)
Labs: Labs Reviewed by me
--- NOTE | 2023-10-19 12:50 | CON.CAR ---
Addendum entered and electronically signed by Ramiro Wade DO 10/19/23 17:12:
I saw and examined the patient.
The Avionics Supervisor's note was reviewed and I agree with the note.
Comment:
GENERAL: no acute distress
EYE: sclera anicteric
NECK: Supple, no JVD, no carotid bruit appreciated
ENT: normal nose, moist mucosal membranes
CARDIAC: Regular rate and rhythm, +S1/S2, 2/6 holosystolic murmur; no rubs, or gallops
CHEST/PULMONARY: Normal effort, clear breath sounds
ABDOMEN: Soft, without focal tenderness or distention
NEUROLOGICAL: Alert and oriented x3
SKIN: Warm and dry, no rash
PSYCH: Normal and appropriate interaction.
Impression:
Presented 10/17/2023 with SOB
Acute hypoxic respiratory insufficiency
Recurrent left pleural effusion
Acute on chronic anemia
SVT
Bradycardia/vasovagal event
Acute on Chronic Hyponatremia
Elevated bilirubin and LDH�
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
Essential Hypertension
Hypothyroidism
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
Bullous Pemphigoid
Exudative Left Pleural Effusion with h/o frequent thoracentesis (09/25/2023, 09/27/2023, 10/09/2023)
Tricuspid regurgitation, Mild to moderate on echo 09/2023
Aortic regurgitation, �Mild to moderate on echo 09/2023
Mitral valve prolapse, mild bileaflet w/o significant regurgitation on echo 09/2023
Chronic Hypotension
Hyponatremia/SIADH
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
Chronic Lower Extremity Edema
Echo 09/27/2023: EF 55-60%, mild bileaflet prolapse w/ trace MR, mild-mod AI. Mild-mod TR w/ RVSP 26 mmHg
Echo 10/19/2023: pending
MRI Brain 10/18/2023: Large region of restricted diffusion in the left occipital lobe measuring up to 6.2 cm in length compatible with an acute infarct. T2/FLAIR hyperintense expansile cytotoxic edema at this location. Multiple smaller acute infarcts
in the bilateral cerebral hemispheres with a parallel orientation in a watershed distribution. Small bilateral cerebellar hemisphere infarcts are also suspected, left greater than right.
Plan:
Patient is a 78-year-old male with past medical history significant for hypertension/hypotension, hypothyroidism, warm hemolytic anemia post COVID vaccine, Bullous Pemphigoid, recurrent left pleural effusion with multiple thoracentesis x 3 since
September 25, 2023, mild to moderate mixed valvular disease, chronic hyponatremia and chronic lower extremity edema who presented to emergency department 10/17/2023 with worsening shortness of breath and drop of hemoglobin noted on outpatient labs.� On
presentation patient noted to have a hemoglobin of 7.1 now 5.9.� He was also noted to have small to moderate recurrent left pleural effusion being followed closely.� Patient complained of difficulty with reading comprehension which started to
10/11/2023 along with headache.� Patient was evaluated by neurology who ordered MRI of brain which showed acute ischemic stroke of left occipital lobe with multiple bilateral watershed distribution infarcts.� Patient had an episode of bradycardia
with heart rate dropping into the 30s with near syncope initially in emergency department.� Toprol was placed on hold.� Patient now noted to have 1 brief episode of SVT.� Cardiology being asked to see patient secondary to arrhythmia and new stroke.
At time of this evaluation patient resting comfortably in bed with at bedside.� Patient denies palpitations, chest pain, shortness of breath at rest, dizziness, lightheadedness.� Reports stable mild chronic lower extremity edema.
Presented 10/17/2023 with SOB and acute hypoxic respiratory insufficiency.
Acute on chronic hemolytic anemia.� Hemoglobin 12.5 09/28/2023, dropped to 9.5 10/09/2023 and has been trending downward thereafter.� 7.1 on admission 10/17 now 5.9 10/19.� Has not received transfusion as awaiting blood from [place]. Oncology following
closely.
Patient complained of difficulty with reading comprehension starting 10/10-10/11/2023 associated with headache.�
-MRI of brain demonstrating acute stroke of left occipital lobe with cytotoxic edema with multiple bilateral watershed distribution infarcts. �
-T/c MRA of head/neck and or carotid duplex.
-Nephrology following. Recommending ASA 81 mg
-Concern for embolic event. Currently not candidate for OAC given acute on chronic anemia w/ Hgb 5.9 and falling.
-Prestatin lipids TC 161, HDL 20, LDL 112, tgs 147. New to Atorvastatin 40 mg, goal LDL <70
Paroxysmal Atrial tachycardia/SVT
-Per review of telemetry patient in sinus rhythm with brief runs of PAT/SVT longest 13 beats since admission.� Patient was taken off Toprol 50 mg twice daily on 10/17 secondary to an episode of bradycardia in emergency department.�
-Would add back lower dose of Toprol 25 mg. If BP tolerates consider 25 mg BID.
-K+ 3.7 would replete; check magnesium
-Continue to monitor on tele.
-Concern for embolic event. Currently not candidate for OAC given acute on chronic anemia w/ Hgb 5.9 and falling; no evidence of AF at this time, may benefit from OP monitor for re-assessment, however, would need input from Heme/Onc and neuro that
IF AF is discovered, if he would be a candidate for OAC
-Echo 09/27/2023 with preserved EF and mixed mild-mod valve disease. Neurology ordered repeat echo - results pending
Hypothyroidism continue Synthroid, TSH 1.85 on 10/08/23 labs
Recurrent left pleural effusions (exudative)
-h/o frequent thoracentesis (09/25/2023, 09/27/2023, 10/09/2023).�
-Chest ultrasound 10/17/2023 with moderate left pleural effusion reoccurrence.�
-Continue Torsemide 10 mg BID.
-Continue to monitor closely.� May need repeat thoracentesis. Remains on room air
Hyponatremia/SIADH
-Known to Dr. Curiel
-Continue Torsemide 10 mg BID.
-Continue salt tabs and fluid restriction
-Nephrology considering urea packets 15g daily
Original Note:
Consultation
Consultation Request
Date/Time Consultation Requested: 10/19/2023
Date/Time Consultation Performed: 10/19/2023
Requesting Provider: Dr. Hodge
Performing Provider: Alethea Sultana PA-C for Dr. Felipe
Reason for Consultation: New stroke, PSVT
Medical History
-
History of Present Illness:
Patient is a 78-year-old male with past medical history significant for hypertension/hypotension, hypothyroidism, warm hemolytic anemia post COVID vaccine, Bullous Pemphigoid, recurrent left pleural effusion with multiple thoracentesis x 3 since
September 25, 2023, mild to moderate mixed valvular disease, chronic hyponatremia and chronic lower extremity edema who presented to emergency department 10/17/2023 with worsening shortness of breath and drop of hemoglobin noted on outpatient labs. On
presentation patient noted to have a hemoglobin of 7.1 now 5.9. He was also noted to have small to moderate recurrent left pleural effusion being followed closely. Patient complained of difficulty with reading comprehension which started to
10/11/2023 along with headache. Patient was evaluated by neurology who ordered MRI of brain which showed acute ischemic stroke of left occipital lobe with multiple bilateral watershed distribution infarcts. Patient had an episode of bradycardia
with heart rate dropping into the 30s with near syncope initially in emergency department. Toprol was placed on hold. Patient now noted to have 1 brief episode of SVT. Cardiology being asked to see patient secondary to arrhythmia and new stroke.
At time of this evaluation patient resting comfortably in bed with at bedside. Patient denies palpitations, chest pain, shortness of breath at rest, dizziness, lightheadedness. Reports stable mild chronic lower extremity edema.
PMH:
Essential Hypertension
Hypothyroidism
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
Bullous Pemphigoid
Exudative Left Pleural Effusion with h/o frequent thoracentesis (09/25/2023, 09/27/2023, 10/09/2023)
Tricuspid regurgitation, Mild to moderate on echo 09/2023
Aortic regurgitation, �Mild to moderate on echo 09/2023
Mitral valve prolapse, mild bileaflet w/o significant regurgitation on echo 09/2023
Chronic Hypotension
Hyponatremia/SIADH
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
Chronic Lower Extremity Edema
Past Medical History
Past Medical History: Other (See HPI)
Past Surgical History: Tonsilectomy and Other (Left thoracentesis)
Social History
Tobacco: Former Smoker
Alcohol: None
Drug: None
Personal:
Living: With Family ()
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
Family History
Family History: Other (Father kidney failure age 70, mother breast cancer age 92)
Allergies / Home Medications
Allergy/AdvReac Type Severity Reaction Status Date / Time
amlodipine Allergy pt states Verified 10/17/23 23:03
it caused
his sodium
level to
be low
Medication Instructions Recorded Confirmed Type
metoprolol succinate 50 mg 50 mg PO BID Heart 03/03/11 10/17/23 History
tablet,extended release 24 hr disease/condition
levothyroxine 75 mcg tablet 75 mcg PO DAILY AT 0700 Thyroid 12/03/18 10/18/23 History
betamethasone dipropionate 0.05 % 1 applic topical HSPRN PRN back 09/26/23 10/17/23 History
topical cream and side of abd
folic acid 1 mg tablet 1 mg PO DAILY Supplement 09/26/23 10/17/23 History
cholecalciferol (vitamin D3) 25 1,000 unit PO DAILY 30 days #30 09/30/23 10/17/23 Rx
mcg (1,000 unit) tablet tabs
ibuprofen 200 mg tablet (Advil) 200 mg PO Q6HPRN PRN sleep/chest 10/17/23 10/17/23 History
pains
polyethylene glycol 3350 17 gram 17 g PO DAILYPRN PRN constipation 10/17/23 10/17/23 History
oral powder packet (HealthyLax)
sodium chloride 1,000 mg soluble 1,000 mg PO BID Electrolyte 10/17/23 10/17/23 History
tablet Repletion
torsemide 10 mg tablet 10 mg PO BID@0800,1600 Fluid 10/17/23 10/18/23 History
Retention/Swelling
Review of Systems
-
History Source: Patient
All other systems: Negative unless noted
Physical Exam
Vital Signs
Temp Pulse Resp BP Pulse Ox
97.7 F 85 16 130/68 95
10/19/23 11:21 10/19/23 11:21 10/19/23 11:21 10/19/23 11:21 10/19/23 11:21
GEN: No distress, awake, Ox3, lying in bed
HEENT: supple, anicteric, mmm
LUNGS: CTA, no wheezes/rales
CV: Reg, S1/S2, 1/6 syst murmur, no rubs or gallops
ABD: soft, BS+, NT/ND
EXT: Trace to +1 LE edema
NEURO: Gross non-focal
SKIN: Pallor, No rash, warm, dry
Lab Results
10/19/23 05:08
10/19/23 05:08
Troponin I < 0.012 ng/ml 10/17/23 11:29
Jmy-A-Xsbmhwtyhcj Pept 1290 pg/ml 10/17/23 11:29
Impression / Plan
-
PCP: Santiago Garvin
Wood Tool Maker: None prior to admission, initial consult Dr. Felipe
Impression:
Presented 10/17/2023 with SOB
Acute hypoxic respiratory insufficiency
Recurrent left pleural effusion
Acute on chronic anemia
SVT
Bradycardia/vasovagal event
Acute on Chronic Hyponatremia
Elevated bilirubin and LDH�
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
Essential Hypertension
Hypothyroidism
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
Bullous Pemphigoid
Exudative Left Pleural Effusion with h/o frequent thoracentesis (09/25/2023, 09/27/2023, 10/09/2023)
Tricuspid regurgitation, Mild to moderate on echo 09/2023
Aortic regurgitation, �Mild to moderate on echo 09/2023
Mitral valve prolapse, mild bileaflet w/o significant regurgitation on echo 09/2023
Chronic Hypotension
Hyponatremia/SIADH
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
Chronic Lower Extremity Edema
Echo 09/27/2023: EF 55-60%, mild bileaflet prolapse w/ trace MR, mild-mod AI. Mild-mod TR w/ RVSP 26 mmHg
Echo 10/19/2023: pending
MRI Brain 10/18/2023: Large region of restricted diffusion in the left occipital lobe measuring up to 6.2 cm in length compatible with an acute infarct. T2/FLAIR hyperintense expansile cytotoxic edema at this location. Multiple smaller acute infarcts
in the bilateral cerebral hemispheres with a parallel orientation in a watershed distribution. Small bilateral cerebellar hemisphere infarcts are also suspected, left greater than right.
Plan:
Patient is a 78-year-old male with past medical history significant for hypertension/hypotension, hypothyroidism, warm hemolytic anemia post COVID vaccine, Bullous Pemphigoid, recurrent left pleural effusion with multiple thoracentesis x 3 since
September 25, 2023, mild to moderate mixed valvular disease, chronic hyponatremia and chronic lower extremity edema who presented to emergency department 10/17/2023 with worsening shortness of breath and drop of hemoglobin noted on outpatient labs. On
presentation patient noted to have a hemoglobin of 7.1 now 5.9. He was also noted to have small to moderate recurrent left pleural effusion being followed closely. Patient complained of difficulty with reading comprehension which started to
10/11/2023 along with headache. Patient was evaluated by neurology who ordered MRI of brain which showed acute ischemic stroke of left occipital lobe with multiple bilateral watershed distribution infarcts. Patient had an episode of bradycardia
with heart rate dropping into the 30s with near syncope initially in emergency department. Toprol was placed on hold. Patient now noted to have 1 brief episode of SVT. Cardiology being asked to see patient secondary to arrhythmia and new stroke.
At time of this evaluation patient resting comfortably in bed with at bedside. Patient denies palpitations, chest pain, shortness of breath at rest, dizziness, lightheadedness. Reports stable mild chronic lower extremity edema.
Presented 10/17/2023 with SOB and acute hypoxic respiratory insufficiency.
Acute on chronic hemolytic anemia. Hemoglobin 12.5 09/28/2023, dropped to 9.5 10/09/2023 and has been trending downward thereafter. 7.1 on admission 10/17 now 5.9 10/19. Has not received transfusion as awaiting blood from [place]. Oncology following
closely.
Patient complained of difficulty with reading comprehension starting 10/10-10/11/2023 associated with headache.
-MRI of brain demonstrating acute stroke of left occipital lobe with cytotoxic edema with multiple bilateral watershed distribution infarcts.
-T/c MRA of head/neck and or carotid duplex.
-Nephrology following. Recommending ASA 81 mg
-Concern for embolic event. Currently not candidate for OAC given acute on chronic anemia w/ Hgb 5.9 and falling.
-Prestatin lipids TC 161, HDL 20, LDL 112, tgs 147. New to Atorvastatin 40 mg, goal LDL <70
Paroxysmal Atrial tachycardia/SVT
-Per review of telemetry patient in sinus rhythm with brief runs of PAT/SVT longest 13 beats since admission. Patient was taken off Toprol 50 mg twice daily on 10/17 secondary to an episode of bradycardia in emergency department.
-Would add back lower dose of Toprol 25 mg. If BP tolerates consider 25 mg BID.
-K+ 3.7 would replete; check magnesium
-Continue to monitor on tele.
-Concern for embolic event. Currently not candidate for OAC given acute on chronic anemia w/ Hgb 5.9 and falling.
-Echo 09/27/2023 with preserved EF and mixed mild-mod valve disease. Neurology ordered repeat echo - results pending
Hypothyroidism continue Synthroid, TSH 1.85 on 10/08/23 labs
Recurrent left pleural effusions (exudative)
-h/o frequent thoracentesis (09/25/2023, 09/27/2023, 10/09/2023).
-Chest ultrasound 10/17/2023 with moderate left pleural effusion reoccurrence.
-Continue Torsemide 10 mg BID.
-Continue to monitor closely. May need repeat thoracentesis. Remains on room air
Hyponatremia/SIADH
-Known to Dr. Curiel
-Continue Torsemide 10 mg BID.
-Continue salt tabs and fluid restriction
-Nephrology considering urea packets 15g daily
at bedside and reviewed plan
Data Reviewed
-
EKG: Report Reviewed by me, Discussed with Physician, Discussed with Patient and Discussed with Family
Radiology: Report Reviewed by me, Discussed with Physician, Discussed with Patient and Discussed with Family
CT Scan: Report Reviewed by me, Discussed with Physician and Discussed with Patient
MRI: Report Reviewed by me, Discussed with Physician, Discussed with Patient and Discussed with Family
Labs: Labs Reviewed by me, Discussed with Physician and Discussed with Patient
Old Records: Reviewed
[2023-10-19 15:16] LABS: Magnesium 2.2 mg/dl (1.6-2.3)
[2023-10-19] MEDS: TYLENOL 1000 MG PO (15:25)
[2023-10-19] MEDS: KCL 40 MEQ PO (15:25)
[2023-10-19] MEDS: BENADRYL 25 MG IV (15:25)
--- NOTE | 2023-10-19 15:25 | W.CON.NEPH ---
Consultation
-
Date/Time Consultation Requested: 10/19/23
Date/Time Consultation Performed: 10/19/23
Requesting Provider: Luis Hodge
Performing Provider: Larissa Cowan
Reason for Consultation: hyponatremia
Medical History
-
Chief Complaint: hyponatremia
History of Present Illness:
Mr. Cui is a 78YOM well known to the nephrology service with a PMH of HTN, hhypothryoidism, WAHA, bullous pemphigoid, large left pleural effusion, hypotension, hyponatremia, hx of colon cancer and gout who presents to the hospital for SOB and
anemia.
He has had multiple admissions recently for hyponatremia and pleural effusions (requiring thoracentesis). Currently, he is awaiting blood transfusion products from [facility] (WILLEM is being performed). Hgb is 5.9 this AM. Patient is also receiving
prednisone for c/f recurrent hemolytic anemia. Patient is being planned for thoracentesis once stable from anemia perspective.
Regarding his Na, his baseline is around 130. Patient was 126 on presentation, improved to 127 at the time of this consult. We had discussed Urea-Na at home, but patient's had difficulty obtaining. He is currently on NaCl TID, fluid restriction
and torsemide 10mg BID with relatively stable Na. Patient has no complaints other than SOB.
Past Medical History
1. Hypertension.
2. Hyponatremia.
3. Hypothyroidism.
4. Bullous pemphigoid.
5. Warm autoimmune hemolytic anemia.
6. History of colon cancer and gout.
Past Surgical History: Other
Social History
Tobacco: Non-Smoker
Alcohol: None
Drug: None
Personal:
Living: With Family
Family History
No CKD
Allergies / Home Medications
Allergy/AdvReac Type Severity Reaction Status Date / Time
amlodipine Allergy pt states Verified 10/17/23 23:03
it caused
his sodium
level to
be low
Medication Instructions Recorded Confirmed Type
metoprolol succinate 50 mg 50 mg PO BID Heart 03/03/11 10/17/23 History
tablet,extended release 24 hr disease/condition
levothyroxine 75 mcg tablet 75 mcg PO DAILY AT 0700 Thyroid 12/03/18 10/18/23 History
betamethasone dipropionate 0.05 % 1 applic topical HSPRN PRN back 09/26/23 10/17/23 History
topical cream and side of abd
folic acid 1 mg tablet 1 mg PO DAILY Supplement 09/26/23 10/17/23 History
cholecalciferol (vitamin D3) 25 1,000 unit PO DAILY 30 days #30 09/30/23 10/17/23 Rx
mcg (1,000 unit) tablet tabs
ibuprofen 200 mg tablet (Advil) 200 mg PO Q6HPRN PRN sleep/chest 10/17/23 10/17/23 History
pains
polyethylene glycol 3350 17 gram 17 g PO DAILYPRN PRN constipation 10/17/23 10/17/23 History
oral powder packet (HealthyLax)
sodium chloride 1,000 mg soluble 1,000 mg PO BID Electrolyte 10/17/23 10/17/23 History
tablet Repletion
torsemide 10 mg tablet 10 mg PO BID@0800,1600 Fluid 10/17/23 10/18/23 History
Retention/Swelling
Review of Systems
-
History Source: Patient and Family
All other systems: Negative unless noted
Constitutional: Fatigue
EENT: No Symptoms
Respiratory: Trouble Breathing
Cardiac: No Symptoms
Abdomen/GI: No Symptoms
: No Symptoms
Musculoskeletal: No Symptoms
Skin: No Symptoms
Neurological: No Symptoms
Endocrine: No Symptoms
Hematologic/Lymphatic: No Symptoms
Physical Exam
Vital Signs
Vital Signs
Temp Pulse Resp BP Pulse Ox
98.1 F 85 16 132/70 96
10/19/23 15:19 10/19/23 15:19 10/19/23 15:19 10/19/23 15:19 10/19/23 15:19
Lab Results
WBC 14.9 10^3/uL (4.8-10.8) H 10/19/23 05:08
RBC 1.90 10^6/uL (4.70-6.10) L 10/19/23 05:08
Hgb 5.9 g/dL (13.0-18.0) L* 10/19/23 05:08
Hct 16.3 % (39.0-52.0) L* 10/19/23 05:08
Plt Count 154 10^3/uL (130-400) 10/19/23 05:08
Sodium 127 mmol/L (135-145) L 10/19/23 05:08
Potassium 3.7 mmol/L (3.5-5.1) 10/19/23 05:08
Chloride 98 mmol/L (98-107) 10/19/23 05:08
Carbon Dioxide 26 mmol/L (22-30) 10/19/23 05:08
BUN 18 mg/dl (9-20) 10/19/23 05:08
Creatinine 0.7 mg/dL (0.7-1.3) 10/19/23 05:08
eGFR > 60.00 10/19/23 05:08
Glucose 97 mg/dl (70-99) 10/19/23 05:08
Calcium 7.8 mg/dl (8.4-10.2) L 10/19/23 05:08
Dyu-P-Dktpzlkfhxp Pept 1290 pg/ml 10/17/23 11:29
Albumin 2.8 g/dl (3.5-5.0) L 10/19/23 05:08
Physical Exam
General: Awake, Alert and Oriented
HEENT: PERRL and EOMI
Respiratory: Crackels
Cardiac: S1/S2 and Regular Rate/Rhythm
Breast: N/A
Abdomen: Soft, Nontender and Nondistended
Rectal: Deferred by Provider
Genito-urinary: Other (no Krishnamurthy)
Musculoskeletal: No Edema
Skin: No Rash
Neuro: Nonfocal/Grossly Intact
Hematologic/Lymphatic: No Cervical Lymphadenopathy
Psych: Mood/afflect pleasant
Assessment/Plan
-
Assessment:
Hyponatremia
SOB
Recurrent L pleural effusion
Anemia likely hemolytic
ischemic stroke
HTN
hypothyrodisim
Plan:
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
- Usm 426 and King 98 --> consistent with SIAD
- will give one dose SAMSCA 7.5mg today for goal Na >130
- tomorrow, will restart urea packets (patient's determined to obtain as outpatient)
- patient having dizziness with torsemide previously, will hold for now along with salt tabs
Data Reviewed
-
Radiology: Image Personally Visualized and interpreted
CT Scan: Report Reviewed by me
Labs: Labs Reviewed by me
Old Records: Reviewed
[2023-10-19] MEDS: TOPROL XL 25 MG PO (16:19)
[2023-10-19] MEDS: SAMSCA 7.5 MG PO (16:19)
--- NOTE | 2023-10-19 16:25 | PTCARENOTE ---
Pt currently receiving 1st unit of PRBC's. Q-15 minutes vitals done and WNL. No S/S of any transfusion reaction. Pt instructed to ring for any assistance. in room currently at this time.
--- NOTE | 2023-10-19 17:10 | CM ---
Spoke with patient and in room.
He said he needs a blood transfusion. Awaiting [place] match.
At dc will drive him home.
PLAN Home with no anticipated dc needs
[2023-10-19] MEDS: LIPITOR 40 MG PO (17:28)
--- NOTE | 2023-10-19 18:56 | PTCARENOTE ---
Pt currently receiving 2nd unit of PRBC's. Q-15 minutes vitals done and WNL. No S/S of any transfusion reaction. Pt instructed to ring for any assistance.
--- NOTE | 2023-10-19 19:30 | PTCARENOTE ---
Assumed care of patient from previous RN -- blood transfusing without any issue at this time, no complaints per patient. Patient is awake, alert and oriented, no c/o pain, patient resting in bed comfortably at this time. Call henderson within reach, will
continue to monitor closely with blood transfusion taking place.
--- NOTE | 2023-10-19 22:41 | PTCARENOTE ---
Completion of second unit PRBCs, no transfusion reactions noted. Patient offers no complaints. VSS. Call henderson within reach, will monitor.
[2023-10-20 03:45] VITALS: BP 103/44
[2023-10-20 06:00] VITALS: BMI 26.9
[2023-10-20] MEDS: SYNTHROID 75 MCG PO (06:08)
[2023-10-20 07:00] VITALS: BP 125/67
[2023-10-20 07:09] LABS: Hematocrit 23.8 % (39.0-52.0); Mean Corp Hgb Conc. 36.1 g/dL (33.0-37.0); Mean Corpuscular Hgb 32.1 pg (27.0-31.0); Mean Corpuscular Volume 88.8 fL (80.0-94.0); Mean Platelet Volume 11.1 fL (7.4-10.4); Platelet Count 157 10^3/uL (130-400); Red Blood Cell Count 2.68 10^6/uL (4.70-6.10); Red Cell Dist. Width 19.9 % (11.5-14.5); White Blood Cell Count 13.8 10^3/uL (4.8-10.8)
[2023-10-20 07:30] LABS: Blood Urea Nitrogen 20 mg/dl (9-20); Calcium 8.1 mg/dl (8.4-10.2); Carbon Dioxide 24 mmol/L (22-30); Chloride 103 mmol/L (98-107); Estimated Creatinine Clearance 76 ml/min; Glucose 75 mg/dl (70-99); Sodium 131 mmol/L (135-145); eGFR > 60.00
[2023-10-20 07:43] LABS: Hemoglobin 8.6 g/dL (13.0-18.0)
--- NOTE | 2023-10-20 09:19 | W.PN.CARDCBS ---
Today's Communication / Plan
-
Given that neuro feels source is likely cardioembolic (still no definitive source identified, no AF), I have no objection to OAC if/when OK with primary service / neurology / hemetology with the understanding that no definitive cardioembolic source
has been identified. .
Transthoracic echocardiogram finds no obvious cardioembolic source.
At some point there may be value to consider transesophageal echocardiogram.
If no obvious source detected during this hospitalization/evaluation, can consider implantation of a loop recorder for long-term monitoring in the setting of cryptogenic stroke.
Could this be a hematologic disorder with both hemolysis and thrombosis?
Discussed with primary service.
Impression / Plan
-
PCP: Santiago Garvin
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 Felipe
Impression:
Presented 10/17/2023 with SOB
Acute hypoxic respiratory insufficiency
Recurrent left pleural effusion
Acute on chronic anemia
SVT
Bradycardia/vasovagal event
Acute on Chronic Hyponatremia
Elevated bilirubin and LDH�
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
Essential Hypertension
Hypothyroidism
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
Bullous Pemphigoid
Exudative Left Pleural Effusion with h/o frequent thoracentesis (09/25/2023, 09/27/2023, 10/09/2023)
Tricuspid regurgitation, Mild to moderate on echo 09/2023
Aortic regurgitation, �Mild to moderate on echo 09/2023
Mitral valve prolapse, mild bileaflet w/o significant regurgitation on echo 09/2023
Chronic Hypotension
Hyponatremia/SIADH
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
Chronic Lower Extremity Edema
Echo 09/27/2023: EF 55-60%, mild bileaflet prolapse w/ trace MR, mild-mod AI. Mild-mod TR w/ RVSP 26 mmHg
Echo 10/19/2023: EF 55-60%. Bileaflet mitral valve prolapse with mild mitral regurgitation. Mild to moderate aortic regurgitation. Small pericardial effusion with no hemodynamic compromise. Normal size right atrium normal size left atrium. There
is no cardiac embolic source seen within the limitations of transthoracic echocardiographic imaging.
MRI Brain 10/18/2023: Large region of restricted diffusion in the left occipital lobe measuring up to 6.2 cm in length compatible with an acute infarct. T2/FLAIR hyperintense expansile cytotoxic edema at this location. Multiple smaller acute infarcts
in the bilateral cerebral hemispheres with a parallel orientation in a watershed distribution. Small bilateral cerebellar hemisphere infarcts are also suspected, left greater than right.
Plan:
Patient is a 78-year-old male with past medical history significant for hypertension/hypotension, hypothyroidism, warm hemolytic anemia post COVID vaccine, Bullous Pemphigoid, recurrent left pleural effusion with multiple thoracentesis x 3 since
September 25, 2023, mild to moderate mixed valvular disease, chronic hyponatremia and chronic lower extremity edema who presented to emergency department 10/17/2023 with worsening shortness of breath and drop of hemoglobin noted on outpatient labs. On
presentation patient noted to have a hemoglobin of 7.1 now 5.9. He was also noted to have small to moderate recurrent left pleural effusion being followed closely. Patient complained of difficulty with reading comprehension which started to
10/11/2023 along with headache. Patient was evaluated by neurology who ordered MRI of brain which showed acute ischemic stroke of left occipital lobe with multiple bilateral watershed distribution infarcts. Patient had an episode of bradycardia
with heart rate dropping into the 30s with near syncope initially in emergency department. Toprol was placed on hold. Patient now noted to have 1 brief episode of SVT. Cardiology being asked to see patient secondary to arrhythmia and new stroke.
At time of this evaluation patient resting comfortably in bed with at bedside. Patient denies palpitations, chest pain, shortness of breath at rest, dizziness, lightheadedness. Reports stable mild chronic lower extremity edema.
Presented 10/17/2023 with SOB and acute hypoxic respiratory insufficiency.
Acute on chronic hemolytic anemia. Hemoglobin 12.5 09/28/2023, dropped to 9.5 10/09/2023 and has been trending downward thereafter. 7.1 on admission 10/17 now 5.9 10/19. Has not received transfusion as awaiting blood from [place]. Oncology following
closely.
Patient complained of difficulty with reading comprehension starting 10/10-10/11/2023 associated with headache.
-MRI of brain demonstrating acute stroke of left occipital lobe with cytotoxic edema with multiple bilateral watershed distribution infarcts.
Neurology feels etiology is most consistent with embolic origin
Telemetry monitoring has not demonstrated atrial fibrillation or atrial flutter (echocardiogram from October 19, 2023 finds normal size left atrium and normal size right atrium)
T/c MRA of head/neck and or carotid duplex although neurology feels that given the extensive b/lnature of the brain findings that a cardioembolic source is more likely.
Given that neuro feels source is likely cardioembolic (still no definitive source identified, no AF), I have no objection to OAC if/when OK with primary service / neurology / hemetology .
Transthoracic echocardiogram finds no obvious cardioembolic source.
At some point there may be value to consider transesophageal echocardiogram.
If no obvious source detected during this hospitalization/evaluation, can consider implantation of a loop recorder for long-term monitoring in the setting of cryptogenic stroke.
Continue to follow tele.
Could this be a hematologic disorder with both hemolysis and thrombosis?
-Prestatin lipids TC 161, HDL 20, LDL 112, tgs 147.
New to Atorvastatin 40 mg, goal LDL <70
Paroxysmal Atrial tachycardia/SVT
-Per review of telemetry patient in sinus rhythm with brief runs of PAT/SVT longest 13 beats since admission. Patient was taken off Toprol 50 mg twice daily on 10/17 secondary to an episode of bradycardia in emergency department.
-Maintain Toprol XL 25 mg daily.
Hypothyroidism continue Synthroid, TSH 1.85 on 10/08/23 labs
Recurrent left pleural effusions (exudative)
-h/o frequent thoracentesis (09/25/2023, 09/27/2023, 10/09/2023).
-Chest ultrasound 10/17/2023 with moderate left pleural effusion reoccurrence.
-Continue Torsemide 10 mg BID.
-Continue to monitor closely. May need repeat thoracentesis. Remains on room air
Hyponatremia/SIADH
-Known to Dr. Curiel
-Continue Torsemide 10 mg BID.
-Continue salt tabs and fluid restriction
-Nephrology considering urea packets 15g daily
Progress Note - Lacquer Spray Booth Operator
Subjective
Date of Service: October 20, 2023
He tells me he feels well.No CP, SOB,palps
Total Time Spent with Patient (in minutes): 37
Objective
Labs:
10/20/23 06:40
10/20/23 06:40
Labs
Hgb 8.6 g/dL (13.0-18.0) L D 10/20/23 06:40
Hct 23.8 % (39.0-52.0) L 10/20/23 06:40
Plt Count 157 10^3/uL (130-400) 10/20/23 06:40
PT 14.9 Sec (11.4-14.6) H 10/17/23 11:29
INR 1.17 10/17/23 11:29
Sodium 131 mmol/L (135-145) L 10/20/23 06:40
Potassium 4.0 mmol/L (3.5-5.1) 10/20/23 06:40
BUN 20 mg/dl (9-20) 10/20/23 06:40
Creatinine 0.8 mg/dL (0.7-1.3) 10/20/23 06:40
Glucose 75 mg/dl (70-99) 10/20/23 06:40
Troponins
10/17/23
11:29
Troponin I < 0.012
Vital Signs and I&O:
Vital Signs
Temp Pulse Resp BP Pulse Ox
98.0 F 70 18 125/67 100
10/20/23 07:00 10/20/23 07:00 10/20/23 07:00 10/20/23 07:00 10/20/23 07:00
Vital Signs
Temp Pulse Resp BP Pulse Ox
98.0 F 70 18 125/67 100
10/20/23 07:00 10/20/23 07:00 10/20/23 07:00 10/20/23 07:00 10/20/23 07:00
Intake & Output
10/18/23 10/19/23 10/20/23 10/21/23
06:59 06:59 06:59 06:59
Intake Total 120 / 120 1080 / 1080 2069
Output Total 1950 / 1949 265 / 2650
Balance 120 / 120 -870 / -870 -580 / -580
Physical Exam
Physical Exam
GEN: No distress, awake,
HEENT: supple, anicteric, mmm
LUNGS: CTA, no wheezes/rales
CV: Reg, S1/S2, no S3 or S4, 1/6 syst murmur, no rubs, nl PMI
ABD: soft, BS+, NT/ND
EXT: Trace to +1 LE edema
SKIN: Pallor, No rash, warm, dry
[2023-10-20] MEDS: FOLVITE 1 MG PO (09:22)
[2023-10-20] MEDS: PROTONIX 40 MG PO (09:23)
[2023-10-20] MEDS: DELTASONE 40 MG PO (09:23)
[2023-10-20] MEDS: VITAMIN B-12 1000 MCG PO (09:23)
[2023-10-20] MEDS: TOPROL XL 25 MG PO (09:23)
[2023-10-20] MEDS: VITAMIN D3 (cholecalciferol) 25 MCG PO (09:23)
[2023-10-20] MEDS: ASPIR LOW (ENTERIC COATED) 81 MG PO (09:23)
--- NOTE | 2023-10-20 09:24 | W.PN.ONC2 ---
Today's Communication / Plan
-
HgB Improved. Continue prednisone.
Good increment from PRBC x 2
Stable for D/C with outpt heme follow up and slow prednisone taper (~ 10 mg a week reduction over ~ 2 mo)
Impression
Impression
Conner + AIHA hemolytic anemia
Recurrent left pleural effusion s/p thoracentesis x3 w/ negative cytology
Neutrophilia
Leukocytosis
Reticulocytosis
Chronic hyponatremia
Plan
Plan
Continue Prednisone 1mg/kg daily
Protonix 40mg daily
Folic acid 1mg daily
B12 1000mcg daily
Subjective/Objective
Chief Complaint
ACS Heme Onc
Subjective
Feels well. Received PRBC transfusions.
Vital Signs:
Vital Signs
Temp Pulse Resp BP Pulse Ox
98.0 F 70 18 125/67 100
10/20/23 07:00 10/20/23 07:00 10/20/23 07:00 10/20/23 07:00 10/20/23 07:00
Lab Results:
Laboratory Data
WBC 13.8 10^3/uL (4.8-10.8) H 10/20/23 06:40
Hgb 8.6 g/dL (13.0-18.0) L D 10/20/23 06:40
Plt Count 157 10^3/uL (130-400) 10/20/23 06:40
PT 14.9 Sec (11.4-14.6) H 10/17/23 11:29
INR 1.17 10/17/23 11:29
eGFR > 60.00 10/20/23 06:40
Physical Exam
Cardiology: S1 and S2
Pulmonary: Clear
GI: Soft
Extremities: No C/C/E
--- NOTE | 2023-10-20 10:14 | W.PN.NEURO.1 ---
Today's Communication / Plan
-
.
Subjective/Objective
Subjective Data
Date of Service: October 20, 2023
Mr. Cui reports no complaints. No events on Telemetry. Continues to have alexia.
No reports of headache.
TTE-no evidenc eof embolic sourse.
Brain MRI wo [facility](10/18/2023)-large acute L [employer]BLER, multiple bilateral watershed distribution infarcts.
Labs: WBC 13.8, Hb 8.6.
LDL-103(10/08/2023).
PMH:�h/o provoked seizure due to hyponatremia,� autoimmune hemolytic anemia, bullous pemphigoid, SIADH, HTN, DLP, hypothyroidism, vit D deficiency, BPH, osteoporosis
PSH: thoracentesis, polypectomy, tonsillectomy.
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
FH: Mother with breast cancer
All: Amlodipine
ROS:Constitutional: Negative. Negative for chills, fever and unexpected weight change.
HENT: Negative for ear pain, hearing loss, tinnitus and trouble swallowing.
Eyes: Negative. Negative for photophobia, pain and visual disturbance.
Respiratory: Positive for intermittent dyspnea
Cardiovascular: Negative for chest pain, palpitations and leg swelling.
Gastrointestinal: Negative for abdominal pain and vomiting.
Endocrine: Negative. Negative for cold intolerance.
Genitourinary: Negative for dysuria, flank pain and urgency.
Musculoskeletal: Negative for back pain, gait problem, neck pain and neck stiffness.
Skin: Negative for rash.
Allergic/Immunologic: Negative. Negative for immunocompromised state.
Neurological: Positive for alexia, intermittent confusion
Psychiatric/Behavioral: Negative for behavioral problems, confusion and hallucinations.
�
�
General: Well developed. In no acute distress.
Cardio: Regular rate and rhythm without murmur. Extremities are without cyanosis or edema.
Neuro:
Mental Status: Alert, oriented to person, place, and date.� Impaired attention(unable to spell 'worls' backwards' and comprehension. Unable to read, able to spell. No agraphia, Mild expressive dysphasia. Good fund of knowledge. Follows complex
requests across the midline.
Cranial Nerves: . Pupils are equally round and reactive to light.� EOMs full.� Visual mancia full to confrontation.� No ptosis.� No nystagmus.� V1-V3 intact to light touch and pinprick bilaterally, symmetric.� Face symmetric.� Normal hearing AU.�
The palate elevated well.� SCMs and traps 5/5.� Tongue midline.� No dysarthria.
Motor:� � � � Normal bulk and tone.� No pronator or arm drift.� Strength 5/5 throughout. No clonus.
Coordination: No dysmetria or tremor.�
Gait: � � � � � deferred
Assessment and Plan:
�
�
I. Acute bihemispheric strokes with the largest in the L [employer]ER vascular distribution.� Likely etiology�embolic
II.� Vitamin B12 deficiency
III. Mild encephalopathy(vascular, metabolic)
-Telemetry
-Start ASA 81 mg QD when feasible
-Would not pursue KEERTHI since it will not likely mold changer given anemia
-OP Holter monitoring, ILR
-Speech therapy
-DVT prophylaxis
-OP Neurology follow up in 2-4 weeks.
I personally reviewed all radiology and labs along with past medical records pertinent to current medical problems. Total time spent in patient care is 35 minutes.
�
Thank you for allowing us to participate in the care of this patient. Please do not hesitate to contact us with any questions or concerns
Objective Data
Vital Signs
Temp Pulse Resp BP Pulse Ox
36.7 C 70 18 125/67 100
10/20/23 07:00 10/20/23 07:00 10/20/23 07:00 10/20/23 07:00 10/20/23 07:00
Lab Results
10/20/23 06:40
10/20/23 06:40
PT 14.9 Sec (11.4-14.6) H 10/17/23 11:29
INR 1.17 10/17/23 11:29
Sodium 131 mmol/L (135-145) L 10/20/23 06:40
Potassium 4.0 mmol/L (3.5-5.1) 10/20/23 06:40
BUN 20 mg/dl (9-20) 10/20/23 06:40
Glucose 75 mg/dl (70-99) 10/20/23 06:40
Calcium 8.1 mg/dl (8.4-10.2) L 10/20/23 06:40
Krq-G-Sqnqxueqaqc Pept 1290 pg/ml 10/17/23 11:29
LDL Cholesterol, Calc 112 mg/dl 10/19/23 05:08
Vitamin B12 199 pg/ml (239-931) L 10/17/23 11:29
Patient Allergies
amlodipine Allergy (Verified 10/17/23 23:03)
pt states it caused his sodium level to be low
--- NOTE | 2023-10-20 10:18 | W.PN.HOSP.TC ---
Today's Communication/Plan
-
CW neuro work up
DC planning
Assessment / Plan
Assessment / Plan
Shortness of breath-suspect combination of combination of moderate left pleural effusion and anemia. � Oxygenation normal on room air. Component of symptomatic anemia due to acute on chronic anemia noted. Improved.
Recurrent left pleural effusion -exudative in nature.� Unclear etiology.� Chest x-ray shows left pleural effusion but improved compared to previous x-ray from last week.� ultrasound of chest shows moderate pleural effusion. Will arrange for
thoracentesis on Sunday if needed to stay for other medical workup. If not would go home and arrange this as an outpatient. He follows with a local malt liquors sales supervisor who is going to get a possible thoracentesis this week depending on the level of
fluid. Patient is known to pulmonary, Dr. Davis.
Has had 3 thoracenteses in the past few weeks.� Pleural fluid cytology has been negative.
Bradycardia/vasovagal episode -patient became bradycardic into the 30s on my assessment and had a near syncopal episode while lying in bed in the emergency room.� Continue telemetry monitoring.� Heart rate currently stable. Beta-cayla resumed at
a lower dose. See cardiology input.
Brief episode of SVT noted ;with concern for embolic stroke consulted cardiology.
Subacute normocytic anemia - due to Ocnner positive hemolytic anemia.� Status post 2 units of PRBC transfusion without any issues. Started on prednisone. Improved hemoglobin. Recommendation is for continuation of steroids with slow taper over the
next 2 months. Hematology.
Difficulty with reading comprehension-Acute ischemic stroke-in the various vascular territories. Worrisome for embolic. There is 1 transient episode of SVT on telemetry so far. Consulted cardiology. Continue to follow telemetry.Continue with
aspirin. Discussed with neurology yesterday-recommends embolic stroke evaluation. Did not did see the need of vascular imaging at the current point. Will discuss with the need of KEERTHI. TTE shows normal EF, mild MR, mild to moderate AR. No
cardiac embolic source seen.
Chronic hyponatremia -worsened to 127-s/p Samsca yesterday with improvement appreciate nephrology input. Recommends urea tablets as outpatient.
Essential hypertension -hold metoprolol given bradycardia.
Hypothyroidism -continue Synthroid.
DW Cardiology
Stable for anemia standpoint for DC
DC when ok from neurology standpoint
Full code
Anticipated Discharge: 24 - 48 hours
Subjective/Interval History
-
Date of Service: October 20, 2023
Patient states his breathing is improved. Still having trouble.
Tried to write the menu for me -
Said carbohydrate diet for clear liquid diet
He started to spell letter at a time for apple juice to come up with the it!
No headache. No speech disturbance.
No limb weakness.
Objective Data
-
Labs:
Laboratory Results
10/20/23
06:40
WBC 13.8 H
Hgb 8.6 L D
Hct 23.8 L
Plt Count 157
Sodium 131 L
Potassium 4.0
Chloride 103
Carbon Dioxide 24
BUN 20
Creatinine 0.8
Glucose 75
Calcium 8.1 L
Vital Signs:
Vital Signs
Temp Pulse Resp BP Pulse Ox
98.0 F 70 18 125/67 100
10/20/23 07:00 10/20/23 07:00 10/20/23 07:00 10/20/23 07:00 10/20/23 07:00
I&O
10/19/23 10/20/23 10/21/23
06:59 06:59 06:59
Intake Total 1080 / 1080 2069
Output Total 1949 / 1949 2649 / 265
Balance -870 / -870 -580 / -580
Review of Systems
-
Constitutional: Denies Fever
EENT: Denies Sore Throat
Respiratory: Denies Cough or Trouble Breathing
Cardiac: Denies Chest Pain
Neuro: Denies Dizzy
Physical Exam
-
General: No Apparent Distress
HEENT: Moist Mucous Membranes
Respiratory: Clear to Auscultation
Cardiac: Regular Rhythm and S1/S2
GI: Soft, Nontender, Nondistended and Normal Bowel Sounds
Neuro: AO x 3 and No Motor Deficits
Psych: Calm; Negative Confused or Agitated
Data Reviewed
-
Labs: Labs Reviewed by me
[2023-10-20 11:00] VITALS: BP 130/64
--- NOTE | 2023-10-20 11:41 | W.PN.NEPH.PH ---
Today's Communication / Plan
-
- urea packets initiated
Assessment/Plan
-
Assessment:
Hyponatremia
SOB
Recurrent L pleural effusion
Anemia likely hemolytic
ischemic stroke
HTN
hypothyrodisim
Plan:
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
- Usm 426 and King 98 --> consistent with SIADH
- will give one dose SAMSCA 7.5mg on 10/19 and now improved to 131 this AM
- plan for urea packet today and then daily while inpatient
- patient's able to obtain urea packets as an outpatient
- patient having dizziness with torsemide previously, will hold for now along with salt tabs
- continue to trend Na while on urea.
-
-
Date of Service: October 20, 2023
CC / HPI / ROS
-
Chief Complaint:
hyponatremia
History of Present Illness:
hyponatremia to 126, improved with 7.5mg of samsca
planning for urea packets
Hgb 8.6 (5.9 previoiusly) s/p 2u PRBSc
Review of Systems:
no complaints
discussed with pateints
Labs
-
Labs:
WBC 13.8 10^3/uL (4.8-10.8) H 10/20/23 06:40
RBC 2.68 10^6/uL (4.70-6.10) L 10/20/23 06:40
Hgb 8.6 g/dL (13.0-18.0) L D 10/20/23 06:40
Hct 23.8 % (39.0-52.0) L 10/20/23 06:40
Plt Count 157 10^3/uL (130-400) 10/20/23 06:40
Sodium 131 mmol/L (135-145) L 10/20/23 06:40
Potassium 4.0 mmol/L (3.5-5.1) 10/20/23 06:40
Chloride 103 mmol/L (98-107) 10/20/23 06:40
Carbon Dioxide 24 mmol/L (22-30) 10/20/23 06:40
BUN 20 mg/dl (9-20) 10/20/23 06:40
Creatinine 0.8 mg/dL (0.7-1.3) 10/20/23 06:40
eGFR > 60.00 10/20/23 06:40
Glucose 75 mg/dl (70-99) 10/20/23 06:40
Calcium 8.1 mg/dl (8.4-10.2) L 10/20/23 06:40
Hbs-E-Vdregtufsir Pept 1290 pg/ml 10/17/23 11:29
Albumin 2.8 g/dl (3.5-5.0) L 10/19/23 05:08
Physical Exam
-
Vital Signs:
Vital Signs
Temp Pulse Resp BP Pulse Ox
97.8 F 62 17 130/64 97
10/20/23 11:00 10/20/23 11:00 10/20/23 11:00 10/20/23 11:00 10/20/23 11:00
Cardiovascular:: Regular rate and rhythm
Respiratory:: Bilateral: Coarse
Lung Excursion:: Normal
Abdomen:: Distended and Soft
Bowel Sounds:: Normal
Extremity Edema:: None: Bilateral:
Krishnamurthy Catheter: No
[2023-10-20] MEDS: NON-FORMULARY ITEM 15 G PO (11:57)
[2023-10-20 15:00] VITALS: BP 129/68
[2023-10-20] MEDS: LIPITOR 40 MG PO (17:27)
[2023-10-20 23:00] VITALS: BP 118/61
[2023-10-21 03:00] VITALS: BP 132/65
[2023-10-21] MEDS: SYNTHROID 75 MCG PO (05:21)
[2023-10-21 06:00] VITALS: BMI 26.7
[2023-10-21 06:40] LABS: Hematocrit 24.5 % (39.0-52.0); Hemoglobin 8.8 g/dL (13.0-18.0); Mean Corp Hgb Conc. 35.9 g/dL (33.0-37.0); Mean Corpuscular Hgb 31.3 pg (27.0-31.0); Mean Corpuscular Volume 87.2 fL (80.0-94.0); Mean Platelet Volume 11.1 fL (7.4-10.4); Platelet Count 209 10^3/uL (130-400); Red Blood Cell Count 2.81 10^6/uL (4.70-6.10); Red Cell Dist. Width 20.6 % (11.5-14.5); White Blood Cell Count 15.8 10^3/uL (4.8-10.8)
[2023-10-21 07:05] LABS: Blood Urea Nitrogen 31 mg/dl (9-20); Calcium 8.6 mg/dl (8.4-10.2); Carbon Dioxide 26 mmol/L (22-30); Chloride 97 mmol/L (98-107); Estimated Creatinine Clearance 76 ml/min; Glucose 75 mg/dl (70-99); Potassium 4.2 mmol/L (3.5-5.1); Sodium 130 mmol/L (135-145); eGFR > 60.00
[2023-10-21 08:02] VITALS: BP 135/75
[2023-10-21] MEDS: VITAMIN D3 (cholecalciferol) 25 MCG PO (08:19)
[2023-10-21] MEDS: FOLVITE 1 MG PO (08:19)
[2023-10-21] MEDS: TOPROL XL 25 MG PO (08:19)
[2023-10-21] MEDS: PROTONIX 40 MG PO (08:19)
[2023-10-21] MEDS: DELTASONE 40 MG PO (08:19)
[2023-10-21] MEDS: ASPIR LOW (ENTERIC COATED) 81 MG PO (08:19)
[2023-10-21] MEDS: VITAMIN B-12 1000 MCG PO (08:19)
[2023-10-21] MEDS: NON-FORMULARY ITEM 15 G PO (09:31)
--- NOTE | 2023-10-21 10:09 | W.PN.CARDCBS ---
Today's Communication / Plan
-
No cardiac contraindication to discharge home.
My office will arrange for patient to have a 2-week extended outpatient monitor as well as office follow-up with us.
If this is unrevealing there could be consideration for implantation of a loop recorder to assess for cryptogenic stroke.
Impression / Plan
-
PCP: Santiago Garvin
Real Property Appraiser: None prior to admission, initial consult Dr. Felipe
Impression:
Presented 10/17/2023 with SOB
Acute hypoxic respiratory insufficiency
Recurrent left pleural effusion
Acute on chronic anemia
SVT
Bradycardia/vasovagal event
Acute on Chronic Hyponatremia
Elevated bilirubin and LDH�
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
Essential Hypertension
Hypothyroidism
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
Bullous Pemphigoid
Exudative Left Pleural Effusion with h/o frequent thoracentesis (09/25/2023, 09/27/2023, 10/09/2023)
Tricuspid regurgitation, Mild to moderate on echo 09/2023
Aortic regurgitation, �Mild to moderate on echo 09/2023
Mitral valve prolapse, mild bileaflet w/o significant regurgitation on echo 09/2023
Chronic Hypotension
Hyponatremia/SIADH
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
Chronic Lower Extremity Edema
Echo 09/27/2023: EF 55-60%, mild bileaflet prolapse w/ trace MR, mild-mod AI. Mild-mod TR w/ RVSP 26 mmHg
Echo 10/19/2023: EF 55-60%. Bileaflet mitral valve prolapse with mild mitral regurgitation. Mild to moderate aortic regurgitation. Small pericardial effusion with no hemodynamic compromise. Normal size right atrium normal size left atrium. There
is no cardiac embolic source seen within the limitations of transthoracic echocardiographic imaging.
MRI Brain 10/18/2023: Large region of restricted diffusion in the left occipital lobe measuring up to 6.2 cm in length compatible with an acute infarct. T2/FLAIR hyperintense expansile cytotoxic edema at this location. Multiple smaller acute infarcts
in the bilateral cerebral hemispheres with a parallel orientation in a watershed distribution. Small bilateral cerebellar hemisphere infarcts are also suspected, left greater than right.
Plan:
Patient is a 78-year-old male with past medical history significant for hypertension/hypotension, hypothyroidism, warm hemolytic anemia post COVID vaccine, Bullous Pemphigoid, recurrent left pleural effusion with multiple thoracentesis x 3 since
September 25, 2023, mild to moderate mixed valvular disease, chronic hyponatremia and chronic lower extremity edema who presented to emergency department 10/17/2023 with worsening shortness of breath and drop of hemoglobin noted on outpatient labs. On
presentation patient noted to have a hemoglobin of 7.1 now 5.9. He was also noted to have small to moderate recurrent left pleural effusion being followed closely. Patient complained of difficulty with reading comprehension which started to
10/11/2023 along with headache. Patient was evaluated by neurology who ordered MRI of brain which showed acute ischemic stroke of left occipital lobe with multiple bilateral watershed distribution infarcts. Patient had an episode of bradycardia
with heart rate dropping into the 30s with near syncope initially in emergency department. Toprol was placed on hold. Patient now noted to have 1 brief episode of SVT. Cardiology being asked to see patient secondary to arrhythmia and new stroke.
At time of this evaluation patient resting comfortably in bed with at bedside. Patient denies palpitations, chest pain, shortness of breath at rest, dizziness, lightheadedness. Reports stable mild chronic lower extremity edema.
Presented 10/17/2023 with SOB and acute hypoxic respiratory insufficiency.
Acute on chronic hemolytic anemia. Hemoglobin 12.5 09/28/2023, dropped to 9.5 10/09/2023 and has been trending downward thereafter. 7.1 on admission 10/17 now 5.9 10/19. Has not received transfusion as awaiting blood from [place]. Oncology following
closely.
Patient complained of difficulty with reading comprehension starting 10/10-10/11/2023 associated with headache.
-MRI of brain demonstrating acute stroke of left occipital lobe with cytotoxic edema with multiple bilateral watershed distribution infarcts.
Neurology feels etiology is most consistent with embolic origin
Telemetry monitoring has not demonstrated atrial fibrillation or atrial flutter (echocardiogram from October 19, 2023 finds normal size left atrium and normal size right atrium)
Neurology feels that there is no value to transesophageal echocardiogram as it is unlikely to change their treatment recommendation regarding the CVA.
Neurology recommendation at present is aspirin 81 mg daily.
No cardiac contraindication to discharge home.
My office will arrange for patient to have a 2-week extended outpatient monitor as well as office follow-up with us.
If this is unrevealing there could be consideration for implantation of a loop recorder to assess for cryptogenic stroke.
-Prestatin lipids TC 161, HDL 20, LDL 112, tgs 147.
New to Atorvastatin 40 mg, goal LDL <70
Paroxysmal Atrial tachycardia/SVT
-Per review of telemetry patient in sinus rhythm with brief runs of PAT/SVT longest 13 beats since admission. Patient was taken off Toprol 50 mg twice daily on 10/17 secondary to an episode of bradycardia in emergency department.
-Maintain Toprol XL 25 mg daily.
Hypothyroidism continue Synthroid, TSH 1.85 on 10/08/23 labs
Recurrent left pleural effusions (exudative)
-h/o frequent thoracentesis (09/25/2023, 09/27/2023, 10/09/2023).
-Chest ultrasound 10/17/2023 with moderate left pleural effusion reoccurrence.
-Continue Torsemide 10 mg BID.
-Continue to monitor closely. May need repeat thoracentesis. Remains on room air
Hyponatremia/SIADH
-Known to Dr. Curiel
-Continue Torsemide 10 mg BID.
-Continue salt tabs and fluid restriction
-Nephrology considering urea packets 15g daily
Progress Note - Real Property Appraiser
Subjective
Date of Service: October 21, 2023
Patient tells me he feels well. No chest pain shortness breath palpitations or dizziness.
Total Time Spent with Patient (in minutes): 34
Objective
Labs:
10/21/23 05:59
10/21/23 05:59
Labs
Hgb 8.8 g/dL (13.0-18.0) L 10/21/23 05:59
Hct 24.5 % (39.0-52.0) L 10/21/23 05:59
Plt Count 209 10^3/uL (130-400) D 10/21/23 05:59
PT 14.9 Sec (11.4-14.6) H 10/17/23 11:29
INR 1.17 10/17/23 11:29
Sodium 130 mmol/L (135-145) L 10/21/23 05:59
Potassium 4.2 mmol/L (3.5-5.1) 10/21/23 05:59
BUN 31 mg/dl (9-20) H 10/21/23 05:59
Creatinine 0.8 mg/dL (0.7-1.3) 10/21/23 05:59
Glucose 75 mg/dl (70-99) 10/21/23 05:59
Vital Signs and I&O:
Vital Signs
Temp Pulse Resp BP Pulse Ox
97.3 F 72 16 135/75 99
10/21/23 08:02 10/21/23 08:02 10/21/23 08:02 10/21/23 08:02 10/21/23 08:02
Vital Signs
Temp Pulse Resp BP Pulse Ox
97.3 F 72 16 135/75 99
10/21/23 08:02 10/21/23 08:02 10/21/23 08:02 10/21/23 08:02 10/21/23 08:02
Intake & Output
10/19/23 10/20/23 10/21/23 10/22/23
06:59 06:59 06:59 06:59
Intake Total 1080 / 1080 2070 / 2070 840 / 840
Output Total 1949 2650 / 2650 1630 / 1630
Balance -870 / -870 -580 / -580 -790 / -790
Physical Exam
Physical Exam
GEN: No distress, awake,
HEENT: supple, anicteric, mmm
LUNGS: CTA, no wheezes/rales
CV: Reg, S1/S2, no S3 or S4, 1/6 syst murmur, no rubs, nl PMI
ABD: soft, BS+, NT/ND
EXT: Trace to +1 LE edema
SKIN: Pallor, No rash, warm, dry
[2023-10-21 11:44] VITALS: BP 130/73
--- NOTE | 2023-10-21 11:50 | W.PN.NEPH.PH ---
Today's Communication / Plan
-
- Na stable
- CTM BMP while inpatient
Assessment/Plan
-
Assessment:
Hyponatremia
SOB
Recurrent L pleural effusion
Anemia likely hemolytic
ischemic stroke
HTN
hypothyrodisim
Plan:
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
- Usm 426 and King 98 --> consistent with SIADH
- will give one dose SAMSCA 7.5mg on 10/19
- initiated urea packets on 10/20 with Na staying stable at 130 this AM
- will continue urea while outpatient as patient's is able to obtain
- patient having dizziness with torsemide previously, will hold for now along with salt tabs
If patient is being discharged, we will have a BMP follow up in 2 weeks to be followed up with Dr. Curiel
-
-
Date of Service: October 21, 2023
CC / HPI / ROS
-
Chief Complaint:
hyponatremia
History of Present Illness:
hyponatremia to 126, improved with 7.5mg of samsca
on urea packets
Hgb 8.6 (5.9 previoiusly) s/p 2u PRBSc
Review of Systems:
no complaints
discussed with pateints
Labs
-
Labs:
WBC 15.8 10^3/uL (4.8-10.8) H 10/21/23 05:59
RBC 2.81 10^6/uL (4.70-6.10) L 10/21/23 05:59
Hgb 8.8 g/dL (13.0-18.0) L 10/21/23 05:59
Hct 24.5 % (39.0-52.0) L 10/21/23 05:59
Plt Count 209 10^3/uL (130-400) D 10/21/23 05:59
Sodium 130 mmol/L (135-145) L 10/21/23 05:59
Potassium 4.2 mmol/L (3.5-5.1) 10/21/23 05:59
Chloride 97 mmol/L (98-107) L 10/21/23 05:59
Carbon Dioxide 26 mmol/L (22-30) 10/21/23 05:59
BUN 31 mg/dl (9-20) H 10/21/23 05:59
Creatinine 0.8 mg/dL (0.7-1.3) 10/21/23 05:59
eGFR > 60.00 10/21/23 05:59
Glucose 75 mg/dl (70-99) 10/21/23 05:59
Calcium 8.6 mg/dl (8.4-10.2) 10/21/23 05:59
Vex-Q-Ipdtbpyarbg Pept 1290 pg/ml 10/17/23 11:29
Albumin 2.8 g/dl (3.5-5.0) L 10/19/23 05:08
Physical Exam
-
Vital Signs:
Vital Signs
Temp Pulse Resp BP Pulse Ox
97.1 F 71 16 130/73 97
10/21/23 11:44 10/21/23 11:44 10/21/23 11:44 10/21/23 11:44 10/21/23 11:44
Cardiovascular:: Regular rate and rhythm
Respiratory:: Bilateral: Coarse
Lung Excursion:: Normal
Abdomen:: Nontender and Soft
Bowel Sounds:: Normal
Extremity Edema:: None: Bilateral:
Krishnamurthy Catheter: No
--- NOTE | 2023-10-21 12:58 | W.PN.HOSP.TC ---
Today's Communication/Plan
-
dc
Assessment / Plan
Assessment / Plan
Shortness of breath-suspect combination of combination of moderate left pleural effusion and anemia. � Oxygenation normal on room air. Component of symptomatic anemia due to acute on chronic anemia noted. Improved.
Recurrent left pleural effusion -exudative in nature.� Unclear etiology.� Chest x-ray shows left pleural effusion but improved compared to previous x-ray from last week.� ultrasound of chest shows moderate pleural effusion. He is asymptomatic
without shortness of breath or hypoxia. He follows with a local textile machinery sales representative who has scheduled a thoracentesis for Sunday. Patient is known to pulmonary, Dr. Davis.
Has had 3 thoracenteses in the past few weeks.� Pleural fluid cytology has been negative.
Bradycardia/vasovagal episode -patient became bradycardic into the 30s on my assessment and had a near syncopal episode while lying in bed in the emergency room.� Continue telemetry monitoring.� Heart rate currently stable. Beta-cayla resumed at
a lower dose. See cardiology input.
Brief episode of SVT noted ;with concern for embolic stroke consulted cardiology- input noted - no afib . OP holter recommended
Subacute normocytic anemia - due to Conner positive hemolytic anemia.� Status post 2 units of PRBC transfusion without any issues. Started on prednisone. Improved hemoglobin. Recommendation is for continuation of steroids with slow taper over the
next 2 months. Hematology.
Difficulty with reading comprehension-Acute ischemic stroke-in the various vascular territories. Worrisome for embolic. Continue with aspirin. TTE shows normal EF, mild MR, mild to moderate AR. No cardiac embolic source seen. Recs on KEERTHI by
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
Chronic hyponatremia -worsened to 127-s/p Samsca yesterday with improvement appreciate nephrology input. Recommends urea tablets as outpatient.Holding Torsamide. Wt stable .
Essential hypertension -lower metoprolol
Hypothyroidism -continue Synthroid.
PT eval pending
Medically stable for DC
Full code
Anticipated Discharge: Today
Subjective/Interval History
-
Date of Service: October 21, 2023
Reading better. No new complaints.
Objective Data
-
Labs:
Laboratory Results
10/21/23
05:59
WBC 15.8 H
Hgb 8.8 L
Hct 24.5 L
Plt Count 209 D
Sodium 130 L
Potassium 4.2
Chloride 97 L
Carbon Dioxide 26
BUN 31 H
Creatinine 0.8
Glucose 75
Calcium 8.6
Vital Signs:
Vital Signs
Temp Pulse Resp BP Pulse Ox
97.1 F 71 16 130/73 97
10/21/23 11:44 10/21/23 11:44 10/21/23 11:44 10/21/23 11:44 10/21/23 11:44
I&O
10/20/23 10/21/23 10/22/23
06:59 06:59 06:59
Intake Total 2069 / 2069 840 / 840
Output Total 2650 / 2650 1630 / 1630
Balance -580 / -580 -790 / -790
Review of Systems
-
Constitutional: Denies Fever
EENT: Denies Sore Throat
Respiratory: Denies Trouble Breathing
Cardiac: Denies Chest Pain or Palpitations
Abdomen/GI: Denies Nausea or Vomiting
Neuro: Denies Dizzy or Weakness
Physical Exam
-
General: No Apparent Distress
HEENT: Moist Mucous Membranes
Respiratory: Clear to Auscultation
Cardiac: Regular Rhythm and S1/S2
GI: Soft
Neuro: AO x 3 and No Motor Deficits; Negative Tremors, Slurred Speech or Facial Droop
Psych: Calm
Data Reviewed
-
Labs: Labs Reviewed by me
--- NOTE | 2023-10-21 13:13 | W.DS.TRANS ---
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
-
Discharge Instructions:
Discharge Diagnosis/Procedures Hemolytic anemia requiring transfusion. Acute
cerebral/cerebellar ischemic strokes,
hyponatremia
Diet Low Cholesterol,2 Gram Sodium
Activity As tolerated
Driving Restrictions Not until seen by your Dr
Bathing Restrictions None
Blood Work CBC , BMP in a week -slip given
Instructions:
Stand-Alone Forms:
Changes to Home Medications: Yes
Discharge Medications:
DC Medications w/original date entered in [employer]
levothyroxine 75 mcg tablet 75 mcg PO DAILY AT 0700 Thyroid 12/03/18
betamethasone dipropionate 0.05 % topical cream 1 applic topical HSPRN PRN back and side of abd 09/26/23
folic acid 1 mg tablet 1 mg PO DAILY Supplement 09/26/23
cholecalciferol (vitamin D3) 25 mcg (1,000 unit) tablet 1,000 unit PO DAILY 30 days #30 tabs 09/30/23
polyethylene glycol 3350 17 gram oral powder packet (HealthyLax) 17 g PO DAILYPRN PRN constipation 10/17/23
sodium chloride 1,000 mg soluble tablet 1,000 mg PO BID Electrolyte Repletion 10/17/23
acetaminophen 325 mg tablet 650 mg PO Q4HPRN PRN mild pain/ fever>100.5F #1 tab 10/21/23
aspirin 81 mg tablet,delayed release 81 mg PO DAILY #30 tabs 10/21/23
atorvastatin 40 mg tablet 40 mg PO QPM #30 tabs 10/21/23
cyanocobalamin (vitamin B-12) 1,000 mcg tablet 1,000 mcg PO DAILY #30 tabs 10/21/23
metoprolol succinate 25 mg tablet,extended release 24 hr 25 mg PO DAILY #30 tabs 10/21/23
pantoprazole 40 mg tablet,delayed release 40 mg PO DAILY #30 tabs 10/21/23
prednisone 10 mg tablet 10 mg PO DIRECTED #70 tabs 10/21/23
urea 15 gram oral powder packet 1 packet PO DAILY #8 ea 10/21/23
Home Medication Changes
Change in medication decrease dose of metoprolol from 50 to 25 mg
New medication-aspirin, Lipitor, vitamin B12, Protonix, prednisone taper, urea
Pending Results: No
--- NOTE | 2023-10-21 13:29 | CM ---
Chart reviewed and plan is to home with spouse no needs when stable.
Plan; Home with spouse no needs.
[2023-10-21 14:12] VITALS: BP 138/72; PULSE 65; O2SAT 97
--- NOTE | 2023-10-21 14:43 | PTCARENOTE ---
Discussed discharge information with Pt and at bedside. IV access and tele removed. Belongings from room taken. Staff wheeled Pt to exit, to drive Pt home.
--- NOTE | 2023-10-21 17:44 | W.DCSUMMARY ---
Discharge Summary
Discharge Data
Date of Admission: 10/17/23
Date of Discharge: 10/21/23
-
Pending Results: No
Hospital Course
Primary diagnosis:
Acute severe hemolytic anemia-immune mediated
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
Chronic hyponatremia
Secondary diagnosis:
Essential hypertension
Hypothyroidism
Recurrent pleural effusion cytology negative
Hospital course:
Patient presented with shortness of breath which was felt multifactorial including new anemia which was severe at 5.9 along with the moderate by recurrent pleural effusion on the left side.
Has anemia was noted to be hemolytic and direct Conner positive suggestive of immune mediated. He was able to tolerate the least incompatible blood. He got 2 units his blood counts came up and he was initiated on steroids for his hematology. The
plan is to continue with steroids with a slow taper of by 10 mg every week or next 2 months.
While he was here he mentioned about her reading difficulty a week prior to admission and neurological workup showed -
1. Large acute infarct in the left occipital lobe.
2. Multiple smaller bilateral acute infarcts with a general watershed distribution, which could be embolic or secondary to hypotension.
Neurology suspected embolic etiology. There was an shorter duration of SVT but no A-fib during the course. Was seen by cardiology. Had a TTE which showed no embolic source. KEERTHI was felt not going to make management changes per neurology. In the
same line neurology did not feel carotid ultrasound would make a change in management. The strokes with bilateral and multiple vascular territories. Was started on aspirin. Was started on statins. The plan was to have 2-week Holter monitor as an
outpatient and follow with neurology in office. He had no other deficits other than reading which was also improving. Was seen by PT and cleared for home.
Has chronic hyponatremia which got worse unclear if related to his chronic cardiac and pleural effusion issue. Got dose of Samsca. He was on torsemide which is causing him lightheadedness and pensions retirement plan specialist change that to urea tablets for management
of hyponatremia.
He is due to get her scheduled left paracentesis next Sunday. I did not see the need of doing it in the house. He has a moderate left pleural effusion on chest imaging.
Consultants on board:
Hematology Carrie Oquendo
Neurology Dr. Dillard
Nephrology Dr Cowan
Cardiology Geronimo Dyer
Discharge Plan
-
Patient Disposition: Home (Routine Discharge)
Discharge Diagnosis/Procedures: Hemolytic anemia requiring transfusion. Acute cerebral/cerebellar ischemic strokes, hyponatremia
Condition: Fair
Diet: Low Cholesterol and 2 Gram Sodium
Activity: As tolerated
Driving Restrictions: Not until seen by your Dr
Bathing Restrictions: None
Blood Work: CBC , BMP in a week -slip given
Referrals:
Melody Dillard MD [Active] - in two to three weeks
Santiago Garvin DO [Family Provider] - in less than 1 week
Prescriptions:
New
aspirin 81 mg Tablet,Delayed Release (Dr/Ec)
81 mg PO DAILY Qty: 30 0RF
prednisone 10 mg tablet
10 mg PO DIRECTED Qty: 70 0RF
Rx Instructions:
40mg daily for a week and then cut down by 10mg weekly
acetaminophen 325 mg Tablet
650 mg PO Q4HPRN PRN (Reason: mild pain/ fever>100.5F) Qty: 1 0RF
cyanocobalamin (vitamin B-12) 1,000 mcg Tablet
1,000 mcg PO DAILY Qty: 30 0RF
metoprolol succinate 25 mg Tablet Extended Release 24 Hr
25 mg PO DAILY Qty: 30 0RF
Rx Instructions:
dose cut down on this admission
pantoprazole 40 mg Tablet,Delayed Release (Dr/Ec)
40 mg PO DAILY Qty: 30 0RF
Rx Instructions:
take it while on prednisone and aspirin combination
atorvastatin 40 mg Tablet
40 mg PO QPM Qty: 30 0RF
urea 15 gram powder in packet
1 packet PO DAILY Qty: 8 3RF
Continued
levothyroxine 75 MCG tablet
75 mcg PO DAILY AT 0700
betamethasone dipropionate 0.05 % Cream
1 applic TOPICAL HSPRN PRN (Reason: back and side of abd)
folic acid 1 mg tablet
1 mg PO DAILY
cholecalciferol (vitamin D3) 25 mcg (1,000 unit) Tablet
1,000 unit PO DAILY 30 Days Qty: 30 0RF
sodium chloride 1,000 mg Tablet,Soluble
1,000 mg PO BID
polyethylene glycol 3350 [HealthyLax] 17 gram powder in packet
17 g PO DAILYPRN PRN (Reason: constipation)
Discontinued
metoprolol succinate 50 MG tablet extended release 24 hr
50 mg PO BID
torsemide 10 mg Tablet
10 mg PO BID@0800,1600
ibuprofen [Advil] 200 mg Tablet
200 mg PO Q6HPRN PRN (Reason: sleep/chest pains)
Discharge Orders:
Discharge Patient (As Directed); Ordered 10/21/23
Ordered By: Luis Hodge
Discharge Date and Time
Discharge Date/Time: 10/21/23 14:53
== END 2023-10-21 14:53 | disposition home or self-care (01) | DRG 808 ==
LOC: 3 WEST ACU 14:42
PROVIDERS: Physician Assistant; Physician Assistant Medical; ADMITTING PHYSICIAN Hospitalist; ATTENDING PHYSICIAN Internal Medicine; CONSULT PHYSICIAN Internal Medicine Hematology & Oncology; CONSULT PHYSICIAN Psychiatry & Neurology Neurology; CONSULT PHYSICIAN Student in an Organized Health Care Education/Training Program; EMERGENCY PHYSICIAN Emergency Medicine; FAMILY PHYSICIAN Internal Medicine; OTHER PHYSICIAN Internal Medicine Cardiovascular Disease
PROC: 30233N1 Transfusion of Nonautologous Red Blood Cells into Peripheral Vein, Percutaneous Approach (ICD-10-PCS; 2023-10-19)
DX: D59.11 Warm autoimmune hemolytic anemia (principal); I63.532 Cerebral infarction due to unspecified occlusion or stenosis of left posterior cerebral artery; E22.2 Syndrome of inappropriate secretion of antidiuretic hormone; J90 Pleural effusion, not elsewhere classified; G93.40 Encephalopathy, unspecified; I47.19 Other supraventricular tachycardia; L12.0 Bullous pemphigoid; R09.02 Hypoxemia; R06.89 Other abnormalities of breathing; I10 Essential (primary) hypertension; E03.9 Hypothyroidism, unspecified; E53.8 Deficiency of other specified B group vitamins; Z87.891 Personal history of nicotine dependence
CPT/HCPCS: 93308; 36415; 70450; 70551; 71046; 76604; 80048; 80053; 80061; 82248; 82607; 82728; 82746; 83010; 83540; 83550; 83615; 83735; 83880; 83930; 83935; 84300; 84484; 85025; 85027; 85045; 85610; 86850; 86870; 86900; 86901; 86920; 86922; 93005; 93321; 93325; 97161; 99291; P9016

== ENCOUNTER → 2023-10-24 11:28 | Outpatient (REF) | payer MEDICARE, BC, SELFPAY ==
[2023-10-24 11:58] LABS: % Basophils 0.4 % (0-2); % Eosinophils 1.4 % (0-6); % Immature Granulocytes 5.2 % (0-0.5); % Lymphocytes 3.5 % (20.5-51.1); % Neutrophils 85.5 % (42.2-75.2); Absolute Basophils 0.1 10^3/uL (0-0.2); Absolute Eosinophils 0.3 10^3/uL (0-0.7); Absolute Immature Granulocytes 1.1 10^3/uL (0-0.05); Absolute Lymphocytes 0.7 10^3/uL (1.2-3.4); Absolute Monocytes 0.8 10^3/uL (0.1-0.6); Absolute Neutrophils 17.3 10^3/uL (1.4-6.5); Hematocrit 22.6 % (39.0-52.0); Hemoglobin 7.9 g/dL (13.0-18.0); Mean Corpuscular Hgb 32.8 pg (27.0-31.0); Mean Corpuscular Volume 93.8 fL (80.0-94.0); Mean Platelet Volume 10.9 fL (7.4-10.4); Nucleated Red Blood Cells % 0.8 % (-); Platelet Count 263 10^3/uL (130-400); Red Blood Cell Count 2.41 10^6/uL (4.70-6.10); White Blood Cell Count 20.2 10^3/uL (4.8-10.8)
[2023-10-24 12:34] VITALS: BP 143/69; BP_SYST 60
[2023-10-24 12:35] LABS: Blood Urea Nitrogen 39 mg/dl (9-20); Calcium 8.3 mg/dl (8.4-10.2); Carbon Dioxide 22 mmol/L (22-30); Chloride 97 mmol/L (98-107); Glucose 83 mg/dl (70-99); Potassium 4.9 mmol/L (3.5-5.1); Sodium 128 mmol/L (135-145); eGFR > 60.00
[2023-10-24 12:39] LABS: Anisocytosis 2+; Hypersegmented Neutrophil Occasional; Hypochromasia 1+; Microcytosis 2+; Normal RBC Morphology No; Polychromasia 1+; Toxic Granulation 1+
[2023-10-24 12:40] LABS: Basophilic Stippling Occasional; Spherocytes 1+
== END ==
LOC: RADI 11:28
PROVIDERS: ATTENDING PHYSICIAN Internal Medicine Critical Care Medicine; FAMILY PHYSICIAN Internal Medicine; REFERRING PHYSICIAN Internal Medicine
DX: J90 Pleural effusion, not elsewhere classified (principal); Z53.8 Procedure and treatment not carried out for other reasons
CPT/HCPCS: 36415; 76604; 80048; 85025

== ENCOUNTER 2023-10-30 15:52 | Outpatient (RCR) | payer MEDICARE, BC, SELFPAY ==
[2023-10-30 15:10] LABS: % Basophils 0.2 % (0-2); % Eosinophils 0.2 % (0-6); % Immature Granulocytes 5.6 % (0-0.5); % Lymphocytes 2.9 % (20.5-51.1); % Monocytes 2.8 % (1.7-9.3); % Neutrophils 88.3 % (42.2-75.2); Absolute Immature Granulocytes 0.9 10^3/uL (0-0.05); Absolute Lymphocytes 0.5 10^3/uL (1.2-3.4); Absolute Monocytes 0.5 10^3/uL (0.1-0.6); Absolute Neutrophils 14.3 10^3/uL (1.4-6.5); Hematocrit 17.2 % (39.0-52.0); Hemoglobin 5.7 g/dL (13.0-18.0); Mean Corp Hgb Conc. 33.1 g/dL (33.0-37.0); Mean Corpuscular Hgb 37.3 pg (27.0-31.0); Mean Corpuscular Volume 112.4 fL (80.0-94.0); Mean Platelet Volume 11.5 fL (7.4-10.4); Nucleated Red Blood Cells % 2.3 % (-); Platelet Count 167 10^3/uL (130-400); Red Blood Cell Count 1.53 10^6/uL (4.70-6.10); Red Cell Dist. Width 29.5 % (11.5-14.5); White Blood Cell Count 16.2 10^3/uL (4.8-10.8)
[2023-10-30 16:10] LABS: Anisocytosis 1+; Macrocytosis 1+; Normal RBC Morphology No; Polychromasia 1+
[2023-10-30 16:11] LABS: Microcytosis 1+
== END 2023-11-01 23:59 | disposition home or self-care (01) ==
LOC: OID 15:52
PROVIDERS: ATTENDING PHYSICIAN Internal Medicine Hematology & Oncology
DX: D59.9 Acquired hemolytic anemia, unspecified (principal)
CPT/HCPCS: 36415; 85025; 86850; 86870; 86900; 86901

== ENCOUNTER 2023-10-30 21:16 | Inpatient (IN) | payer MEDICARE, BC, SELFPAY ==
[2023-10-30 16:56] VITALS: BP 153/78
[2023-10-30 19:01] VITALS: BMI 26.4
[2023-10-30 19:11] VITALS: BP 124/65
--- NOTE | 2023-10-30 19:34 | ED.GENMED ---
History of Present Illness
<Tien Dunn Jr., PA-C - Last Filed: 10/30/23 20:41>
General
Chief Complaint: Abnormal Lab Value
Source: patient and spouse
Exam Limitations: none
Time Seen by Provider: 10/30/23 18:53
Nursing documentation reviewed up to this point in time: agreed with
Travel History
Have you had any contact with someone who has COVID-19?: No
Do you have any symptoms of coronavirus? Fever > 100 degrees, chills, cough, shortness of breath, sore throat, loss of taste or smell, muscle aches, or headache?: No
History of Present Illness
History of Present Illness:
78-year-old male with past medical history of immune hemolytic anemia, seizure disorder hypertension presenting to the emergency department today with concerns of a low hemoglobin from the [facility]. He claims that his hemoglobin was
5.7 earlier today and 5.9 yesterday. Recently had 2 units of blood 1 week ago. Denies any bleeding has been evaluated for GI bleeds in the past with out evidence of this. He denies any chest pain does have some vague fatigue over the past week.
Denies shortness of breath nausea vomiting changes in vision.
Past History
<Tien Dunn Jr., PA-C - Last Filed: 10/30/23 20:41>
Past History
ED Past Medical History: HTN, Seizures (Pt had ONE seizure years ago and found to be significantly hyponatremic. Takes Na tablets daily and is water restricted since.), Hypothyroidism and Other (bullous pemphigous.)
ED Past Surgical History: Tonsilectomy
Social History
Tobacco: Former smoker
Alcohol: Occasional
Drug: None
Personal:
Living: with family
Employment: Retired
Family History
Family History: Other (Noncontributory)
Review of Systems
<Tien Dunn Jr., PA-C - Last Filed: 10/30/23 20:41>
Review of Systems
Allergies reviewed?: Yes
All Other Systems: ROS reviewed and negative except as documented in HPI and ROS
Phy Exam
<Tien Dunn Jr., PA-C - Last Filed: 10/30/23 20:41>
Physical Exam
Physical Exam:
GENERAL: Alert , in no apparent distress
EYE: pupils equal and reactive
NECK: Supple, no significant adenopathy.
ENT: Somewhat pale o/p clr, mmm.
CARDIAC: Regular rate and rhythm .
LUNGS: Clear breath sounds bilaterally, no acute respiratory distress, no wheezes/rales/rhonchi
ABDOMEN: Soft, without focal tenderness, no r/g, no cvat
NEUROLOGICAL: Alert and oriented, no focal neuro deficits
SKIN: Warm and dry, skin intact.
MUSCULOSKELETAL: No edema, well perfused.
PSYCH: Normal and appropriate interaction.
Course
<Tien Dunn Jr., PA-C - Last Filed: 10/30/23 20:41>
Orders/Labs/Results
Orders:
Orders
10/30/23 19:09
Type+Screen Urgent
CMP [Comprehensive Metabolic Panel] Urgent
Complete Blood Count/With Diff Urgent
10/30/23 20:27
* Blood Bank Products Urgent
Blood Bank Products: *Packed RBC Leuko(PRBC's)
Quantity: 2
Transfuse Today: Yes
Reason: Anemia
10/30/23 20:57
Admit/Transfer Patient As Directed
Co-Sign Provider:
Level of Care: Inpatient admission
Assign to:: Telemetry
Physician / Group: Bobby
Diagnosis: Hemolytic Anemia
Reason for Telemetry: Arrhythmia
Date to Stop Telemetry: 11/02/23
Time to Stop Telemetry: 11:00
Reason for Hospitalization: close monitoring, blood transfusion
Expected length of stay greater than two midnights?: Yes
ELOS- Estimated Length of Stay in days: 3
I certify the patient meets the requirements for IP care: Yes
10/30/23 21:03
Code Status As Directed
Resuscitation Status: Full Code
11/02/23 11:00
DC Protocol for Telemetry ONCE
Abnormal Lab Results
10/30/23
19:09
WBC 13.7 H 10^3/uL
(4.8-10.8)
RBC 1.50 L 10^6/uL
(4.70-6.10)
Hgb 5.2 L* g/dL
(13.0-18.0)
Hct 16.0 L* %
(39.0-52.0)
MCV 106.7 H fL
(80.0-94.0)
MCH 34.7 H pg
(27.0-31.0)
MCHC 32.5 L g/dL
(33.0-37.0)
MPV 11.1 H fL
(7.4-10.4)
Abs Immat Gran (auto) 0.8 H 10^3/uL
(0-0.05)
Absolute Neuts (auto) 11.5 H 10^3/uL
(1.4-6.5)
Absolute Lymphs (auto) 0.7 L 10^3/uL
(1.2-3.4)
Immature Gran % 5.6 H %
(0-0.5)
Neutrophils % 84.2 H %
(42.2-75.2)
Lymphocytes % 5.4 L %
(20.5-51.1)
Sodium 128 L mmol/L
(135-145)
BUN 28 H mg/dl
(9-20)
Calcium 8.2 L mg/dl
(8.4-10.2)
Total Bilirubin 2.8 H mg/dl
(0.2-1.3)
Albumin 3.4 L g/dl
(3.5-5.0)
10/30/23 19:09
10/30/23 19:09
Vital Signs
Initial and Last Documented VS:
Initial Vital Signs
Temp Pulse Resp BP Pulse Ox
97.5 F 70 18 153/78 100
10/30/23 16:56 10/30/23 16:56 10/30/23 16:56 10/30/23 16:56 10/30/23 16:56
Last Documented Vital Signs
Temp Pulse Resp BP Pulse Ox
97.5 F 65 16 140/69 100
10/30/23 16:56 10/30/23 21:45 10/30/23 21:45 10/30/23 21:00 10/30/23 21:45
<Du Levy MD - Last Filed: 10/30/23 21:55>
Orders/Labs/Results
Orders:
Orders
10/30/23 19:09
Type+Screen Urgent
CMP [Comprehensive Metabolic Panel] Urgent
Complete Blood Count/With Diff Urgent
10/30/23 20:27
* Blood Bank Products Urgent
Blood Bank Products: *Packed RBC Leuko(PRBC's)
Quantity: 2
Transfuse Today: Yes
Reason: Anemia
10/30/23 20:57
Admit/Transfer Patient As Directed
Co-Sign Provider:
Level of Care: Inpatient admission
Assign to:: Telemetry
Physician / Group: Bobby
Diagnosis: Hemolytic Anemia
Reason for Telemetry: Arrhythmia
Date to Stop Telemetry: 11/02/23
Time to Stop Telemetry: 11:00
Reason for Hospitalization: close monitoring, blood transfusion
Expected length of stay greater than two midnights?: Yes
ELOS- Estimated Length of Stay in days: 3
I certify the patient meets the requirements for IP care: Yes
10/30/23 21:03
Code Status As Directed
Resuscitation Status: Full Code
11/02/23 11:00
DC Protocol for Telemetry ONCE
Abnormal Lab Results
10/30/23
19:09
WBC 13.7 H 10^3/uL
(4.8-10.8)
RBC 1.50 L 10^6/uL
(4.70-6.10)
Hgb 5.2 L* g/dL
(13.0-18.0)
Hct 16.0 L* %
(39.0-52.0)
MCV 106.7 H fL
(80.0-94.0)
MCH 34.7 H pg
(27.0-31.0)
MCHC 32.5 L g/dL
(33.0-37.0)
MPV 11.1 H fL
(7.4-10.4)
Abs Immat Gran (auto) 0.8 H 10^3/uL
(0-0.05)
Absolute Neuts (auto) 11.5 H 10^3/uL
(1.4-6.5)
Absolute Lymphs (auto) 0.7 L 10^3/uL
(1.2-3.4)
Immature Gran % 5.6 H %
(0-0.5)
Neutrophils % 84.2 H %
(42.2-75.2)
Lymphocytes % 5.4 L %
(20.5-51.1)
Sodium 128 L mmol/L
(135-145)
BUN 28 H mg/dl
(9-20)
Calcium 8.2 L mg/dl
(8.4-10.2)
Total Bilirubin 2.8 H mg/dl
(0.2-1.3)
Albumin 3.4 L g/dl
(3.5-5.0)
10/30/23 19:09
10/30/23 19:09
Vital Signs
Initial and Last Documented VS:
Initial Vital Signs
Temp Pulse Resp BP Pulse Ox
97.5 F 70 18 153/78 100
10/30/23 16:56 10/30/23 16:56 10/30/23 16:56 10/30/23 16:56 10/30/23 16:56
Last Documented Vital Signs
Temp Pulse Resp BP Pulse Ox
97.5 F 65 16 140/69 100
10/30/23 16:56 10/30/23 21:45 10/30/23 21:45 10/30/23 21:00 10/30/23 21:45
<Tien Dunn Jr., PA-C - Last Filed: 10/30/23 20:41>
MDM/Problems Addressed
MDM/Problems Addressed:
78-year-old male presenting to the emergency department today with concerns of low hemoglobin done as an outpatient of 5.7 does of history of hemolytic anemia. No known bleeding. Blood bank is unable to get his blood for at least 2 days. Case was
discussed with patient's type cutter that recommends admitting with IV antibiotics as he is high likelihood of progression. Blood bank was contacted and will try to get blood products as soon as possible. Admitted in stable condition.
<Tien Dunn Jr., PA-C - Last Filed: 10/30/23 20:41>
*Critical Care Note
Total Time (30-74mins, 75-104mins- exclusive of procedures): Not Applicable
ED Attending Note
<Tien Dunn Jr., PA-C - Last Filed: 10/30/23 20:41>
-
Portions of this chart may have been created with voice recognition software.� Occasional wrong word or��sound alike� substitutions may have occurred due to the inherent limitations of voice recognition software.
<Du Levy MD - Last Filed: 10/30/23 21:55>
ED Attending Note
I performed the substantive portion of visit, reviewed & personally made and approve the management plan that is documented in note by myself or AYDEN.: Yes
ED Attending Note:
Patient with history of immune hemolytic anemia, presents to ED secondary to increasing generalized fatigue along with an outpatient blood work which revealed low hemoglobin. Patient denies shortness of breath. Denies fever or chills. Denies
nausea or vomiting.
H&H noted and discussed with on-call type cutter, Dr. Rhodes. Recommends admission for further workup, including transfusion as well as IV steroids to promote recovery.
Transfusion consent on the chart.
Discharge Plan
Departure
Patient Disposition: Admit
Date of Disposition: 10/30/23
Time of Disposition: 20:40
Admit to: Telemetry
Admit to doctor: Bobby
Presentation/result/management discussed w/ accepting MD/DO: Hospitalist
Patient with high blood pressure during this ER visit?: No
Condition: Good
Covid-19: Not Applicable
Discharge Problem:
Anemia
Interventions
Interventions:
*Risk Screen - Suicide Last Done: 10/30/23 19:01
*General Assessment Last Done: 10/30/23 19:01
*Neglect/Abuse Screening Last Done: 10/30/23 19:01
ED- Fall Risk Assessment Last Done: 10/30/23 19:41
*ED COVID-19 Vaccine History Last Done: 10/30/23 19:01
[2023-10-30 20:00] VITALS: BP 138/75
[2023-10-30 20:50] LABS: % Basophils 0.1 % (0-2); % Eosinophils 0.2 % (0-6); % Immature Granulocytes 5.6 % (0-0.5); % Lymphocytes 5.4 % (20.5-51.1); % Monocytes 4.5 % (1.7-9.3); % Neutrophils 84.2 % (42.2-75.2); Absolute Immature Granulocytes 0.8 10^3/uL (0-0.05); Absolute Lymphocytes 0.7 10^3/uL (1.2-3.4); Absolute Monocytes 0.6 10^3/uL (0.1-0.6); Absolute Neutrophils 11.5 10^3/uL (1.4-6.5); Mean Corp Hgb Conc. 32.5 g/dL (33.0-37.0); Mean Corpuscular Hgb 34.7 pg (27.0-31.0); Mean Corpuscular Volume 106.7 fL (80.0-94.0); Mean Platelet Volume 11.1 fL (7.4-10.4); Nucleated Red Blood Cells % 3.4 % (-); Platelet Count 148 10^3/uL (130-400); White Blood Cell Count 13.7 10^3/uL (4.8-10.8)
[2023-10-30 21:00] VITALS: BP 140/69
[2023-10-30 21:02] LABS: ALT (SGPT) 17 U/L (0-50); AST (SGOT) 22 U/L (17-59); Albumin 3.4 g/dl (3.5-5.0); Alkaline Phosphatase 98 U/L (38-126); Blood Urea Nitrogen 28 mg/dl (9-20); Calcium 8.2 mg/dl (8.4-10.2); Carbon Dioxide 24 mmol/L (22-30); Chloride 101 mmol/L (98-107); Estimated Creatinine Clearance 87 ml/min; Glucose 91 mg/dl (70-99); Potassium 4.3 mmol/L (3.5-5.1); Sodium 128 mmol/L (135-145); Total Bilirubin 2.8 mg/dl (0.2-1.3); Total Protein 6.3 g/dl (6.3-8.2); eGFR > 60.00
--- NOTE | 2023-10-30 21:05 | HPS.HSE ---
Addendum entered and electronically signed by Bernardo Rosales DO 10/30/23 23:00:
Patient seen and examined independently. Agree with findings and plan as set forth by Amber Escudero PA-C.
Patient is a 78y M with PMH significant for hemolytic anemia, hypertension and bullous pemphigoid who presents to ED for evaluation of worsening anemia. Patient was admitted to 10/17 - 10/21 for acute hemolytic anemia. He received IV steroids
and 2 units of PRBCs during that admission. Patient was discharged to home on prednisone.
He states that his hemoglobin earlier this week was decreased again and his prednisone dose was increased. he had repeat labs today that unfortunately showed a continued decline in Hgb and he was advised to present to the ED for evaluation.
Patient denies any pain. He complains of some SOB with activity.
Ass:
Warm Autoimmune Hemolytic Anemia
ASCVD / Recent Left Occipital CVA
Benign Hypertension
Dyslipidemia
Hypothyroidism
Chronic Hyponatremia
Recurrent Left Pleural Effusion
Plan:
Admit for further evaluation and treatment.
High-diose IV steroids for now per Hematology recommendations.
PRBCs ordered, but will be some delay given antibodies.
Follow for changes in H&H.
No evidence of bleeding, etc.
Follow for any new / worsening symptoms.
Hematology evaluation appreciated.
Original Note:
Family Physician
-
Family Physician: * NONE
Chief Complaint
-
Abnormal Labs
History of Present Illness
Patient is a 78 y/o male PMH of warm hemolytic anemia who was sent to the emergency department by hematology for worsening anemia despite oral prednisone. Patient was recently admitted to [facility] for recurrent left pleural effusion
requiring thoracentesis and worsening hemolytic anemia. He required two units PRBCs and was started on steroids. Despite oral steroid in the outpatient setting his hemoglobin has continued to trend down. They did attempt to increase his oral
prednisone without improvement. Unfortunately due to antibodies it will take time for blood products to be available. Hospitalist group was asked to evaluate the patient for admission to the hospital.
Medical History
Past Medical History
Past Medical History: Reports Other
Additional Past Medical History:
Essential Hypertension
Hypothyroidism
Warm Hemolytic Anemia
Bullous Pemphigoid
Exudative Left Pleural Effusion
Chronic Hypotension
Chronic Lower Extremity Edema
Left Occipital Infarct
SVT
Past Surgical History: Reports Other
Additional Past Surgical History:
Left Thoracentesis
Tonsillectomy
Social History
Tobacco: Non-smoker
Alcohol: None
Drug: None
Personal:
Living: With Family ()
Employment: Retired
Family History
Family History: Not pertinent
Allergies / Home Medications
Allergies reflects when Allergies were last updated in [employer].
Home Medications with original date entered in [employer]
Allergy/Medication List:
Allergies
Allergy/AdvReac Type Severity Reaction Status Date / Time
amlodipine Allergy pt states Verified 10/17/23 23:03
it caused
his sodium
level to
be low
Home Medications
levothyroxine 75 mcg tablet 75 mcg PO DAILY AT 0700 Thyroid 12/03/18
betamethasone dipropionate 0.05 % topical cream 1 applic topical HSPRN PRN back and side of abd 09/26/23
folic acid 1 mg tablet 1 mg PO DAILY Supplement 09/26/23
polyethylene glycol 3350 17 gram oral powder packet (HealthyLax) 17 g PO DAILYPRN PRN constipation 10/17/23
sodium chloride 1,000 mg soluble tablet 1,000 mg PO BID Electrolyte Repletion 10/17/23
acetaminophen 325 mg tablet 650 mg PO Q4HPRN PRN mild pain/ fever>100.5F #1 tab 10/21/23
aspirin 81 mg tablet,delayed release 81 mg PO DAILY #30 tabs 10/21/23
atorvastatin 40 mg tablet 40 mg PO QPM #30 tabs 10/21/23
cyanocobalamin (vitamin B-12) 1,000 mcg tablet 1,000 mcg PO DAILY #30 tabs 10/21/23
metoprolol succinate 25 mg tablet,extended release 24 hr 25 mg PO DAILY #30 tabs 10/21/23
pantoprazole 40 mg tablet,delayed release 40 mg PO DAILY #30 tabs 10/21/23
urea 15 gram oral powder packet 1 packet PO DAILY #8 ea 10/21/23
cholecalciferol (vitamin D3) 25 mcg (1,000 unit) tablet 25 mcg PO DAILY 10/30/23
prednisone 10 mg tablet 60 mg PO DAILY 10/30/23
Review of Systems
-
A 12 point ROS was completed and negative except as noted: Yes
Constitutional: Reports Fatigue; Denies Fever or Chills
Respiratory: Denies Cough or Trouble Breathing
Cardiac: Denies Chest Pain or Palpitations
Physical Exam
Vital Signs
Vital Signs
Temp Pulse Resp BP Pulse Ox
97.5 F 62 17 124/65 100
10/30/23 16:56 10/30/23 19:30 10/30/23 19:30 10/30/23 19:11 10/30/23 19:30
Physical Exam
General: Comfortable and Conversant
HEENT: Moist mucous membranes and Other (Sclera slightly icteric)
Respiratory: Clear and Non Labored Respirations
Cardiac: S1/S2 and Regular Rhythm
GI: Soft and Non Tender
Rectal: Deferred by Provider
Musculoskeletal: No Clubbing, No Cyanosis and Other (+3 pitting edema bilateral lower ext)
Skin: Warm, Dry and Jaundice
Neuro: Awake, Alert, Oriented and Nonfocal/grossly intact
Laboratory Results
-
10/30/23 19:09
Laboratory Results
Total Bilirubin 2.8 mg/dl (0.2-1.3) H 10/30/23 19:09
AST 22 U/L (17-59) 10/30/23 19:09
ALT 17 U/L (0-50) 10/30/23 19:09
Alkaline Phosphatase 98 U/L (38-126) 10/30/23 19:09
Data Reviewed
-
Lab Data: Labs Reviewed by me
Impression/Plan
-
Severe Warm Autoimmune Hemolytic Anemia
-Consult Hematology
-Start high dose steroids - Decadron 40mg q12H x 4 doses
-Await blood transfusion - Per [facility] could be several days for blood to become available
Left Occipital Stroke in Oct 2023
-Continue aspirin
-Patient currently with CAM monitor in place as concern for possible embolic source
Essential Hypertension / SVT
-Continue metoprolol with hold parameters
Hyperlipidemia
-Continue atorvastatin
Hypothyroidism
-Continue levothyroxine
Chronic Hyponatremia
-Continue sodium chloride tablets and urea
Recurrent Left Pleural Effusion s/p Thoracentesis x 3
Code Status: Full Code
[2023-10-30 21:17] LABS: Hemoglobin 5.2 g/dL (13.0-18.0)
[2023-10-30 21:19] LABS: Normal RBC Morphology No
[2023-10-30 21:20] LABS: Microcytosis 1+; Polychromasia 1+
[2023-10-30 21:21] LABS: Macrocytosis 2+
[2023-10-30 21:23] LABS: Anisocytosis 1+
[2023-10-30 22:00] VITALS: BP 133/69
[2023-10-30] MEDS: DECADRON 50 MG IV (22:18)
[2023-10-30] MEDS: DECADRON 50 ML IV (22:18)
[2023-10-30 23:10] VITALS: BMI 26.8
[2023-10-30 23:12] VITALS: BP 141/75
[2023-10-31 03:00] VITALS: BP 128/67
--- NOTE | 2023-10-31 03:56 | PTCARENOTE ---
Patient received from ED, ambulated to bed from stretcher . Vital signs taken. Patent placed on monitoring analyst, No acute issues noted at this time .Patient oriented to room .
[2023-10-31] MEDS: SYNTHROID 75 MCG PO (06:09)
[2023-10-31 07:00] VITALS: BP 130/70
[2023-10-31 07:31] LABS: Mean Corp Hgb Conc. 32.3 g/dL (33.0-37.0); Mean Corpuscular Hgb 35.6 pg (27.0-31.0); Mean Corpuscular Volume 110.1 fL (80.0-94.0); Platelet Count 156 10^3/uL (130-400); Red Blood Cell Count 1.49 10^6/uL (4.70-6.10); Red Cell Dist. Width 28.3 % (11.5-14.5); White Blood Cell Count 13.5 10^3/uL (4.8-10.8)
[2023-10-31 07:46] LABS: Hemoglobin 5.3 g/dL (13.0-18.0)
[2023-10-31 07:47] LABS: Hematocrit 16.4 % (39.0-52.0)
[2023-10-31] MEDS: TOPROL XL 25 MG PO (08:06)
[2023-10-31] MEDS: ASPIR LOW (ENTERIC COATED) 81 MG PO (08:06)
[2023-10-31] MEDS: VITAMIN D3 (cholecalciferol) 25 MCG PO (08:06)
[2023-10-31] MEDS: VITAMIN B-12 1000 MCG PO (08:11)
[2023-10-31] MEDS: FOLVITE 1 MG PO (08:12)
[2023-10-31] MEDS: PROTONIX 40 MG PO (08:14)
[2023-10-31] MEDS: SODIUM CHLORIDE 1 GRAM PO ×2 (08:15→19:36)
[2023-10-31] MEDS: URE-NA 15 GRAMS PO (08:16)
[2023-10-31 08:32] LABS: ALT (SGPT) 19 U/L (0-50); AST (SGOT) 24 U/L (17-59); Albumin 3.4 g/dl (3.5-5.0); Alkaline Phosphatase 90 U/L (38-126); Calcium 8.2 mg/dl (8.4-10.2); Carbon Dioxide 22 mmol/L (22-30); Chloride 102 mmol/L (98-107); Estimated Creatinine Clearance 87 ml/min; Glucose 115 mg/dl (70-99); Sodium 130 mmol/L (135-145); Total Bilirubin 2.7 mg/dl (0.2-1.3); Total Protein 6.4 g/dl (6.3-8.2); Uric Acid 5.7 mg/dl (3.5-8.5); eGFR > 60.00
[2023-10-31 08:37] LABS: Blood Urea Nitrogen 21 mg/dl (9-20)
--- NOTE | 2023-10-31 08:51 | CON.ONC ---
Impression
Impression
Warm this positive autoimmune hemolytic anemia
Plan
Plan
Transfuse 2 units of least incompatible PRBC following analysis by the [facility].
Continue daily folic acid.
Patient was started on IV dexamethasone 40 mg daily. Transition to oral prednisone once hemoglobin response to transfusion.
Patient will need to be set up to receive Rituxan. Office is starting the process to get precertification. This is typically an outpatient therapy.
Since this occurred despite prednisone, we may need to set up a scheduled weekly transfusion through the [facility] to prevent recurrent ER visits and hospitalizations.
Patient History
History of Present Illness
CC: Severe anemia
HPI: 78 y/o man with recurrent warm, Conner + autoimmune hemolytic anemia recently discharged 10/17 - 10/21 on prednisone 40 mg daily now presents with recurrent anemia and hemoglobin = 5.3. Previously he presented with a hemoglobin of 5.9 and was
treated with IV steroids and transfuse least incompatible blood with improvement of hemoglobin. Because of issues in obtaining blood products is admitted for transfusion. He currently denies chest pain, shortness of breath, palpitations. He is
fatigued. He denies bleeding.
Past-Medical/Surgical History
PMH:
Essential Hypertension
Hypothyroidism
Warm Hemolytic Anemia
Bullous Pemphigoid
Exudative Left Pleural Effusion
Chronic Hypotension
Chronic Lower Extremity Edema
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
Chronic hyponatremia/SIADH
SVT
PSH:
Left Thoracentesis
Tonsillectomy
Social History
Tobacco: Non-smoker
Alcohol: None
Drug: None
Personal:
Living: With Family ()
Employment: Retired
FH N/C:
Patient Medication
Medication Instructions Recorded Confirmed Last Taken Type
levothyroxine 75 mcg tablet 75 mcg PO DAILY AT 0700 Thyroid 12/03/18 10/30/23 10/30/23 History
betamethasone dipropionate 0.05 % 1 applic topical HSPRN PRN back 09/26/23 10/30/23 10/07/23 History
topical cream and side of abd
folic acid 1 mg tablet 1 mg PO DAILY Supplement 09/26/23 10/30/23 10/30/23 History
polyethylene glycol 3350 17 gram 17 g PO DAILYPRN PRN constipation 10/17/23 10/30/23 Unknown History
oral powder packet (HealthyLax)
sodium chloride 1,000 mg soluble 1,000 mg PO BID Electrolyte 10/17/23 10/30/23 10/30/23 History
tablet Repletion
acetaminophen 325 mg tablet 650 mg PO Q4HPRN PRN mild pain/ 10/21/23 10/30/23 Unknown Rx
fever>100.5F #1 tab
aspirin 81 mg tablet,delayed 81 mg PO DAILY #30 tabs 10/21/23 10/30/23 10/30/23 Rx
release
atorvastatin 40 mg tablet 40 mg PO QPM #30 tabs 10/21/23 10/30/23 10/29/23 Rx
cyanocobalamin (vitamin B-12) 1,000 mcg PO DAILY #30 tabs 10/21/23 10/30/23 10/30/23 Rx
1,000 mcg tablet
metoprolol succinate 25 mg 25 mg PO DAILY #30 tabs 10/21/23 10/30/23 10/30/23 Rx
tablet,extended release 24 hr
pantoprazole 40 mg tablet,delayed 40 mg PO DAILY #30 tabs 10/21/23 10/30/23 10/30/23 Rx
release
urea 15 gram oral powder packet 1 packet PO DAILY #8 ea 10/21/23 10/30/23 10/30/23 Rx
cholecalciferol (vitamin D3) 25 25 mcg PO DAILY Supplement 10/30/23 10/30/23 10/30/23 History
mcg (1,000 unit) tablet
prednisone 10 mg tablet 60 mg PO DAILY Autoimmune Disorder 10/30/23 10/30/23 10/30/23 History
Active Medications
Generic Name Dose Route Start Last Admin
Trade Name Freq PRN Reason Stop Dose Admin
Acetaminophen 650 mg 10/30/23 22:44
Acetaminophen 325 Mg Tablet PO 11/27/23 22:43
Q4HPRN PRN
mild pain/ fever>100.5F
Aspirin 81 mg 10/31/23 08:00 10/31/23 08:06
Aspirin 81 Mg (Enteric Coated) Tablet PO 11/28/23 07:59 81 mg
DAILY KAY Administration
Atorvastatin Calcium 40 mg 10/31/23 18:00
Atorvastatin (Lipitor) 40 Mg Tablet PO 11/28/23 17:59
QPM KAY
Cholecalciferol 25 mcg 10/31/23 08:00 10/31/23 08:06
Cholecalciferol (Vitamin D3) 25 Mcg Tablet (1,000 Units) PO 11/28/23 07:59 25 mcg
DAILY KAY Administration
Cyanocobalamin 1,000 mcg 10/31/23 08:00 10/31/23 08:11
Cyanocobalamin 1,000 Mcg Tablet PO 11/28/23 07:59 1,000 mcg
DAILY KAY Administration
Folic Acid 1 mg 10/31/23 08:00 10/31/23 08:12
Folic Acid 1 Mg Tablet PO 11/28/23 07:59 1 mg
DAILY KAY Administration
Dexamethasone Sodium Phosphate 50 mls @ 200 mls/hr 10/31/23 10:00
40 mg/ Sodium Chloride 40 ml/ IV 11/01/23 10:14
Device Q12H KAY
Levothyroxine Sodium 75 mcg 10/31/23 07:00 10/31/23 06:09
Levothyroxine 75 Mcg Tablet PO 11/28/23 06:59 75 mcg
DAILY AT 0700 KAY Administration
Metoprolol Succinate 25 mg 10/31/23 08:00 10/31/23 08:06
Metoprolol 25 Mg Extended Release Tablet PO 11/28/23 07:59 25 mg
DAILY KAY Administration
Pantoprazole Sodium 40 mg 10/31/23 08:00 10/31/23 08:14
Pantoprazole 40 Mg Delayed Release Tablet PO 11/28/23 07:59 40 mg
DAILY KAY Administration
Polyethylene Glycol 17 grams 10/30/23 22:44
Polyethylene Glycol Powder 17 Grams Packet PO 11/27/23 22:43
DAILYPRN PRN
constipation
Sodium Chloride 1 gram 10/31/23 08:00 10/31/23 08:15
Sodium Chloride 1 Gram Tablet PO 11/28/23 07:59 1 gram
BID KAY Administration
Sodium Chloride 0 flush 10/30/23 23:00
Sodium Chloride 0.9% (Flush) Syringe IV 11/27/23 22:59
PER PROTOCOL KAY
Urea 15 grams 10/31/23 09:00 10/31/23 08:16
Urea 15 Grams Powder Packet (Non-Form) PO 11/28/23 08:59 15 grams
DAILY KAY Administration
Physical Exam
-
General: Well Developed, Well Nourished and No Apparent Distress
HEENT: Negative Jaundice
Cardiology: S1 and S2
Pulmonary: Clear
GI: Soft
Extremities: No C/C/E
Neurology: Non Focal
Labs
Lab Results
WBC 13.5 10^3/uL (4.8-10.8) H 10/31/23 07:09
RBC 1.49 10^6/uL (4.70-6.10) L 10/31/23 07:09
Hgb 5.3 g/dL (13.0-18.0) L* 10/31/23 07:09
Hct 16.4 % (39.0-52.0) L* 10/31/23 07:09
MCV 110.1 fL (80.0-94.0) H 10/31/23 07:09
MCH 35.6 pg (27.0-31.0) H 10/31/23 07:09
MCHC 32.3 g/dL (33.0-37.0) L 10/31/23 07:09
RDW 28.3 % (11.5-14.5) H 10/31/23 07:09
Plt Count 156 10^3/uL (130-400) 10/31/23 07:09
MPV 11.0 fL (7.4-10.4) H 10/31/23 07:09
Abs Immat Gran (auto) 0.8 10^3/uL (0-0.05) H 10/30/23 19:09
Absolute Neuts (auto) 11.5 10^3/uL (1.4-6.5) H 10/30/23 19:09
Absolute Lymphs (auto) 0.7 10^3/uL (1.2-3.4) L 10/30/23 19:09
Absolute Monos (auto) 0.6 10^3/uL (0.1-0.6) 10/30/23 19:09
Absolute Eos (auto) 0.0 10^3/uL (0-0.7) 10/30/23 19:09
Absolute Basos (auto) 0.0 10^3/uL (0-0.2) 10/30/23 19:09
Immature Gran % 5.6 % (0-0.5) H 10/30/23 19:09
Neutrophils % 84.2 % (42.2-75.2) H 10/30/23 19:09
Lymphocytes % 5.4 % (20.5-51.1) L 10/30/23 19:09
Monocytes % 4.5 % (1.7-9.3) 10/30/23 19:09
Eosinophils % 0.2 % (0-6) 10/30/23 19:09
Basophils % 0.1 % (0-2) 10/30/23 19:09
Creatinine 0.7 mg/dL (0.7-1.3) 10/31/23 07:09
Vital Signs
Vital Signs
Temp Pulse Resp BP Pulse Ox
97.7 F 71 18 130/70 97
10/31/23 07:00 10/31/23 07:00 10/31/23 07:00 10/31/23 07:00 10/31/23 07:00
[2023-10-31 10:03] LABS: Direct Bilirubin 0.5 mg/dl (0.0-0.4); LDH 403 U/L (120-246)
--- NOTE | 2023-10-31 10:22 | PTCARENOTE ---
Patient awake and alert. On room air , denies any shortness of breath. Right upper extremity with some scattered bruising , no open areas. Complains of Right foot pain, not new , states it is an aching that has been happening for a while . Call
henderson in reach. Able to make his needs known.
[2023-10-31 11:00] VITALS: BP 110/58
[2023-10-31 15:00] VITALS: BP 124/65
--- NOTE | 2023-10-31 15:19 | CM ---
Patient seen with , initial assessment completed. Patient reports he lives with Melvina in a multiple story home, 3 steps to enter. Patient denies VN, SNF, or DME. Patient confirm PCP Dr. Garvin, pharmacy [facility]. CM will continue
to follow for discharge planning needs.
Plan; home no needs.
--- NOTE | 2023-10-31 16:49 | W.PN.HOSP.TC ---
Today's Communication/Plan
-
Blood consent obtained
Transfuse
Assessment / Plan
Assessment / Plan
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 Patient was on prednisone and recently admitted from 10/17/2023 to 10/21/2023 and was discharged on prednisone. Present with recurrent anemia hemoglobin of 5.3.
Patient received not so compatible blood transfusion 10 days ago with improvement of hemoglobin but dropped again. Denies any chest pain or shortness of breath. He feels tired.
On examination pale
Awake alert oriented
Cardiovascular system S1-S2 appreciated
Chest clear to auscultation
Abdomen soft and nontender
No pedal edema
# Warm antibody autoimmune hemolytic anemia
Has been on steroids for 1 year
Was tapered off and restarted in September [address] Rojas�
Blood consent obtained
Transfusion pending-blood to be obtained from [facility]
# Hypothyroidism-Synthroid
# Recurrent left pleural effusion -exudative in nature.�(09/25/2023, 09/27/2023, 10/09/2023)
Patient is known to pulmonary, Dr. Davis.�
Has had 3 thoracenteses in the past few weeks.� Pleural fluid cytology has been negative.
# Chronic hypotension
# History of CVA-left occipital infarct-suspect embolic bilateral watershed distribution of infarcts in cerebellum and cerebral hemispheres October 2023
On aspirin and statin
No history of A-fib
Cardiology office was planning to arrange a 2-week extended monitor if this is unrevealing may need loop recorder implantation
# Valvular heart disease
Tricuspid regurgitation, Mild to moderate on echo
Aortic regurgitation, �Mild to moderate on echo
Mitral valve prolapse, mild bileaflet w/o significant regurgitation on echo
Echo 10/19/2023: EF 55-60%.� Bileaflet mitral valve prolapse with mild mitral regurgitation.� Mild to moderate aortic regurgitation.� Small pericardial effusion with no hemodynamic compromise.� Normal size right atrium normal size left atrium.� There
is no cardiac embolic source seen within the limitations of transthoracic echocardiographic imaging.
# Chronic hyponatremia/SIADH
He was on torsemide which is causing him lightheadedness�
Now On sodium chloride tablets and Urea
Known to Dr. Curiel
# Paroxysmal Atrial tachycardia/SVT-metoprolol 25 mg daily
Patient was taken off Toprol 50 mg twice daily on 10/17 secondary to an episode of bradycardia in emergency department.�
# History of early-stage colorectal cancer 2018
# History of bullous pemphigoid
# Diverticulosis
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
# Enlarged prostate-not on medicines. Outpatient follow-up with urology
# History of pancreatitis
# Hepatic steatosis
# Chronic lower extremity edema
# Ex-smoker
# DVT prophylaxis-SCDs
# Full code
Discussed with hematology oncology this morning
Discussed with patient's at bedside
Total time spent 52 minutes with discussions seeing patient, reviewing previous records, blood consent
Anticipated Discharge: Within 24 hours
Subjective/Interval History
-
Date of Service: October 31, 2023
Objective Data
-
Labs:
Laboratory Results
10/31/23
07:09
WBC 13.5 H
Hgb 5.3 L*
Hct 16.4 L*
Plt Count 156
Sodium 130 L
Potassium 4.0
Chloride 102
Carbon Dioxide 22
BUN 21 H
Creatinine 0.7
Glucose 115 H
Calcium 8.2 L
Total Bilirubin 2.7 H
AST 24
ALT 19
Alkaline Phosphatase 90
Vital Signs:
Vital Signs
Temp Pulse Resp BP Pulse Ox
97.7 F 61 18 124/65 97
10/31/23 15:00 10/31/23 15:00 10/31/23 15:00 10/31/23 15:00 10/31/23 15:00
I&O
10/30/23 10/31/23 11/01/23
06:59 06:59 06:59
Intake Total 120 / 120
Balance 120 / 120
[2023-10-31] MEDS: LIPITOR 40 MG PO (17:03)
[2023-10-31 19:00] VITALS: BP 115/63
[2023-10-31 22:30] VITALS: BP 136/71
[2023-10-31] MEDS: DECADRON 60 MG IV (22:39)
[2023-11-01 03:00] VITALS: BP 140/67
[2023-11-01 05:15] VITALS: BMI 25.7
[2023-11-01] MEDS: SYNTHROID 75 MCG PO (05:45)
[2023-11-01 07:00] VITALS: BP 134/64
[2023-11-01] MEDS: VITAMIN D3 (cholecalciferol) 25 MCG PO (08:01)
[2023-11-01] MEDS: PROTONIX 40 MG PO (08:01)
[2023-11-01] MEDS: TOPROL XL 25 MG PO (08:01)
[2023-11-01] MEDS: VITAMIN B-12 1000 MCG PO (08:01)
[2023-11-01] MEDS: SODIUM CHLORIDE 1 GRAM PO ×2 (08:01→20:00)
[2023-11-01] MEDS: FOLVITE 1 MG PO (08:01)
[2023-11-01] MEDS: ASPIR LOW (ENTERIC COATED) 81 MG PO (08:01)
[2023-11-01] MEDS: URE-NA 15 GRAMS PO (08:02)
[2023-11-01] MEDS: MIRALAX 17 GRAMS PO (08:12)
[2023-11-01 08:54] LABS: Mean Corp Hgb Conc. 31.8 g/dL (33.0-37.0); Mean Corpuscular Hgb 36.1 pg (27.0-31.0); Mean Corpuscular Volume 113.6 fL (80.0-94.0); Mean Platelet Volume 11.1 fL (7.4-10.4); Platelet Count 150 10^3/uL (130-400); Red Blood Cell Count 1.69 10^6/uL (4.70-6.10); Red Cell Dist. Width 28.5 % (11.5-14.5); White Blood Cell Count 12.4 10^3/uL (4.8-10.8)
[2023-11-01 08:57] LABS: Hematocrit 19.2 % (39.0-52.0); Hemoglobin 6.1 g/dL (13.0-18.0)
[2023-11-01 09:26] LABS: ALT (SGPT) 20 U/L (0-50); AST (SGOT) 24 U/L (17-59); Albumin 3.7 g/dl (3.5-5.0); Alkaline Phosphatase 85 U/L (38-126); Blood Urea Nitrogen 29 mg/dl (9-20); Calcium 8.2 mg/dl (8.4-10.2); Carbon Dioxide 22 mmol/L (22-30); Chloride 100 mmol/L (98-107); Estimated Creatinine Clearance 76 ml/min; Glucose 120 mg/dl (70-99); Sodium 130 mmol/L (135-145); Total Protein 6.6 g/dl (6.3-8.2); eGFR > 60.00
[2023-11-01 11:00] VITALS: BP 126/66
--- NOTE | 2023-11-01 11:22 | CM ---
Patient seen bedside with , awaiting blood. CM offered support, will continue to check in and follow for discharge planning needs.
Plan; home no needs likely.
--- NOTE | 2023-11-01 11:28 | W.PN.ONC ---
Addendum entered and electronically signed by Shaquille Natarajan DO 11/01/23 14:13:
Patient examined and chart reviewed independently. Agree with the impression and plan as outlined below by [employer]. Awaiting least incompatible PRBC. Patient now expressing refractory AIHA with plan for outpatient Rituxan.
Original Note:
Today's Communication / Plan
-
Hgb 6.1, Hct 19.1
2units PRBCs ordered pending analysis by the [facility]
Transfuse as needed to maintain Hgb >7
Continue folic acid
IV dex 40mg daily with transition to oral pred once Hgb response to transfusions
Monitor CBC w/ diff, serial H/H
Falls precautions
Consider scheduled weekly transfusions through the [facility] to prevent recurrent ER visits and hospitalizations. Rituxan is being set up as outpatient therapy. [facility] has scheduled treatment to begin tentatively 11/08/23 in the [place] office
with [employer]NAGER follow up 11/15/23.
We will follow along.
Impression
Impression
Warm this positive autoimmune hemolytic anemia
Leukocytosis
Hyponatremia
Reticulocytosis
Subjective/Objective
Subjective/Objective
patient is resting in bed. he states he feels fine despite Hgb 6.1.
Vital Signs:
Vital Signs
Temp Pulse Resp BP Pulse Ox
97.6 F 63 18 140/67 98
11/01/23 07:00 11/01/23 08:01 11/01/23 07:00 11/01/23 08:01 11/01/23 07:00
physical exam
aaox3, pleasant, pallor
HRR, lungs clear on room air
hypoactive bowel sounds
scattered ecchymosis to upper extremities
no edema
Lab Results:
Laboratory Data
WBC 12.4 10^3/uL (4.8-10.8) H 11/01/23 08:23
Hgb 6.1 g/dL (13.0-18.0) L* 11/01/23 08:23
Plt Count 150 10^3/uL (130-400) 11/01/23 08:23
eGFR > 60.00 11/01/23 08:22
[2023-11-01 15:00] VITALS: BP 128/67
--- NOTE | 2023-11-01 16:55 | W.PN.HOSP.TC ---
Today's Communication/Plan
-
Await Blood
Assessment / Plan
Assessment / Plan
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 Patient was on prednisone and recently admitted from 10/17/2023 to 10/21/2023 and was discharged on prednisone. Present with recurrent anemia hemoglobin of 5.3.
Patient received not so compatible blood transfusion 10 days ago with improvement of hemoglobin but dropped again. Denies any chest pain or shortness of breath. He feels tired.
On examination pale
Awake alert oriented
Cardiovascular system S1-S2 appreciated
Chest clear to auscultation
Abdomen soft and nontender
No pedal edema
# Warm antibody autoimmune hemolytic anemia
Has been on steroids for 1 year
Was tapered off and restarted in September [address] Rojas�
Blood consent obtained
Transfusion pending-blood to be obtained from [facility]
# Hypothyroidism-Synthroid
# Recurrent left pleural effusion -exudative in nature.�(09/25/2023, 09/27/2023, 10/09/2023)
Patient is known to pulmonary, Dr. Davis.�
Has had 3 thoracenteses in the past few weeks.� Pleural fluid cytology has been negative.
# Chronic hypotension
# History of CVA-left occipital infarct-suspect embolic bilateral watershed distribution of infarcts in cerebellum and cerebral hemispheres October 2023
On aspirin and statin
No history of A-fib
Cardiology office was planning to arrange a 2-week extended monitor if this is unrevealing may need loop recorder implantation
# Valvular heart disease
Tricuspid regurgitation, Mild to moderate on echo
Aortic regurgitation, �Mild to moderate on echo
Mitral valve prolapse, mild bileaflet w/o significant regurgitation on echo
Echo 10/19/2023: EF 55-60%.� Bileaflet mitral valve prolapse with mild mitral regurgitation.� Mild to moderate aortic regurgitation.� Small pericardial effusion with no hemodynamic compromise.� Normal size right atrium normal size left atrium.� There
is no cardiac embolic source seen within the limitations of transthoracic echocardiographic imaging.
# Chronic hyponatremia/SIADH
He was on torsemide which is causing him lightheadedness�
Now On sodium chloride tablets and Urea
Known to Dr. Curiel
# Paroxysmal Atrial tachycardia/SVT-metoprolol 25 mg daily
Patient was taken off Toprol 50 mg twice daily on 10/17 secondary to an episode of bradycardia in emergency department.�
# History of early-stage colorectal cancer 2018
# History of bullous pemphigoid
# Diverticulosis
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
# Enlarged prostate-not on medicines. Outpatient follow-up with urology
# History of pancreatitis
# Hepatic steatosis
# Chronic lower extremity edema
# Ex-smoker
# DVT prophylaxis-SCDs
# Full code
Discussed with patient's at bedside
Anticipated Discharge: 24 - 48 hours
Subjective/Interval History
-
Date of Service: November 01, 2023
Objective Data
-
Labs:
Laboratory Results
11/01/23 11/01/23
08:22 08:23
WBC 12.4 H
Hgb 6.1 L*
Hct 19.2 L*
Plt Count 150
Sodium 130 L
Potassium 4.0
Chloride 100
Carbon Dioxide 22
BUN 29 H
Creatinine 0.8
Glucose 120 H
Calcium 8.2 L
Total Bilirubin 3.0 H
AST 24
ALT 20
Alkaline Phosphatase 85
Vital Signs:
Vital Signs
Temp Pulse Resp BP Pulse Ox
97.7 F 60 18 128/67 98
11/01/23 15:00 02/29/24 15:00 11/01/23 15:00 11/01/23 15:00 11/01/23 15:00
I&O
10/31/23 11/01/23 11/02/23
06:59 06:59 06:59
Intake Total 120 / 120 960 / 960
Balance 120 / 120 960 / 960
[2023-11-01] MEDS: LIPITOR 40 MG PO (17:42)
[2023-11-01 19:00] VITALS: BP 113/51
[2023-11-01 20:55] LABS: Hepatitis B Surface Antigen Negative (Negative)
[2023-11-01 21:13] LABS: Hepatitis B Core Ab, Total Negative (Negative); Hepatitis B Surface Antibody Negative
[2023-11-01 22:30] VITALS: BP 132/59
[2023-11-01] MEDS: DECADRON 60 MG IV (22:40)
[2023-11-02 03:00] VITALS: BP 132/58
[2023-11-02 05:01] VITALS: BMI 25.5
[2023-11-02] MEDS: SYNTHROID 75 MCG PO (06:20)
[2023-11-02 07:10] VITALS: BP 105/61
[2023-11-02 07:55] LABS: Mean Corp Hgb Conc. 32.8 g/dL (33.0-37.0); Mean Corpuscular Hgb 36.3 pg (27.0-31.0); Mean Corpuscular Volume 110.6 fL (80.0-94.0); Red Cell Dist. Width 26.7 % (11.5-14.5)
[2023-11-02 07:57] LABS: Hematocrit 17.7 % (39.0-52.0); Hemoglobin 5.8 g/dL (13.0-18.0)
[2023-11-02 08:10] VITALS: BP 105/61
[2023-11-02] MEDS: SODIUM CHLORIDE 1 GRAM PO ×2 (08:32→21:36)
[2023-11-02] MEDS: ASPIR LOW (ENTERIC COATED) 81 MG PO (08:32)
[2023-11-02] MEDS: PROTONIX 40 MG PO (08:32)
[2023-11-02] MEDS: VITAMIN D3 (cholecalciferol) 25 MCG PO (08:32)
[2023-11-02] MEDS: TOPROL XL PO (08:32)
[2023-11-02] MEDS: VITAMIN B-12 1000 MCG PO (08:32)
[2023-11-02] MEDS: URE-NA 15 GRAMS PO (08:32)
[2023-11-02] MEDS: FOLVITE 1 MG PO (08:32)
[2023-11-02] MEDS: MIRALAX 17 GRAMS PO (09:09)
[2023-11-02 11:47] VITALS: BP 119/58
--- NOTE | 2023-11-02 12:46 | W.PN.ONC ---
Today's Communication / Plan
-
cont steroids
transfuse PRBCs once received from [facility]
Rituximab as outpt next week
Impression
Impression
Warm this positive autoimmune hemolytic anemia
Leukocytosis
Hyponatremia
Reticulocytosis
Plan
Plan
Transfuse 2 units of least incompatible PRBC once received from [facility].
Continue daily folic acid.
continue IV dexamethasone 40 mg daily
Rituxan being set up for outpt tx next week
Follow CBC
Subjective/Objective
Subjective/Objective
feels tired, no SOB or chest pain at rest.
Vital Signs:
Vital Signs
Temp Pulse Resp BP Pulse Ox
97.4 F 72 20 119/58 100
11/02/23 11:47 11/02/23 11:47 11/02/23 11:47 11/02/23 11:47 11/02/23 11:47
Lab Results:
Laboratory Data
WBC 12.0 10^3/uL (4.8-10.8) H 11/02/23 07:32
Hgb 5.8 g/dL (13.0-18.0) L* 11/02/23 07:32
Plt Count 10^3/uL (130-400) 11/02/23 07:32
eGFR > 60.00 11/01/23 08:22
Exam: unchanged
--- NOTE | 2023-11-02 14:53 | W.PN.HOSP.TC ---
Today's Communication/Plan
-
Await [facility] to get blood
Assessment / Plan
Assessment / Plan
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 Patient was on prednisone and recently admitted from 10/17/2023 to 10/21/2023 and was discharged on prednisone. Present with recurrent anemia hemoglobin of 5.3.
Patient received not so compatible blood transfusion 10 days ago with improvement of hemoglobin but dropped again. Denies any chest pain or shortness of breath. He feels tired.
On examination pale
Awake alert oriented
Cardiovascular system S1-S2 appreciated
Chest clear to auscultation
Abdomen soft and nontender
No pedal edema
NO CP or SOB
# Warm antibody autoimmune hemolytic anemia
Has been on steroids for 1 year
Was tapered off and restarted in September [address] Rojas�
Blood consent obtained
Transfusion pending-blood to be obtained from [facility]- still waiting
# Hypothyroidism-Synthroid
# Recurrent left pleural effusion -exudative in nature.�(09/25/2023, 09/27/2023, 10/09/2023)
Patient is known to pulmonary, Dr. Davis.�
Has had 3 thoracenteses in the past few weeks.� Pleural fluid cytology has been negative.
# Chronic hypotension
# History of CVA-left occipital infarct-suspect embolic bilateral watershed distribution of infarcts in cerebellum and cerebral hemispheres October 2023
On aspirin and statin
No history of A-fib
Patient currently with CAM monitor in place�
# Valvular heart disease
Tricuspid regurgitation, Mild to moderate on echo
Aortic regurgitation, �Mild to moderate on echo
Mitral valve prolapse, mild bileaflet w/o significant regurgitation on echo
Echo 10/19/2023: EF 55-60%.� Bileaflet mitral valve prolapse with mild mitral regurgitation.� Mild to moderate aortic regurgitation.� Small pericardial effusion with no hemodynamic compromise.� Normal size right atrium normal size left atrium.� There
is no cardiac embolic source seen within the limitations of transthoracic echocardiographic imaging.
# Chronic hyponatremia/SIADH
He was on torsemide which is causing him lightheadedness�
Now On sodium chloride tablets and Urea
Known to Dr. Curiel
# Paroxysmal Atrial tachycardia/SVT-metoprolol 25 mg daily
Patient was taken off Toprol 50 mg twice daily on 10/17 secondary to an episode of bradycardia in emergency department.�
# History of early-stage colorectal cancer 2018
# History of bullous pemphigoid
# Diverticulosis
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
# Enlarged prostate-not on medicines. Outpatient follow-up with urology
# History of pancreatitis
# Hepatic steatosis
# Chronic lower extremity edema
# Ex-smoker
# DVT prophylaxis-SCDs
# Full code
Discussed with patient's at bedside
D/W RN
D/W Hematology
Anticipated Discharge: Within 24 hours
Subjective/Interval History
-
Date of Service: November 02, 2023
Objective Data
-
Labs:
Laboratory Results
11/02/23
07:32
WBC 12.0 H
Hgb 5.8 L*
Hct 17.7 L*
Plt Count
Vital Signs:
Vital Signs
Temp Pulse Resp BP Pulse Ox
97.4 F 72 20 119/58 100
11/02/23 11:47 11/02/23 11:47 11/02/23 11:47 11/02/23 11:47 11/02/23 11:47
I&O
11/01/23 11/02/23 11/03/23
06:59 06:59 06:59
Intake Total 960 / 960 700 / 700
Balance 960 / 960 700 / 700
[2023-11-02 15:32] VITALS: BP 119/61
--- NOTE | 2023-11-02 15:40 | CM ---
Chart reviewed
Pt to receive 2 Units PRBC's when available
CM will follow for needs
Anticipate home - no needs
[2023-11-02] MEDS: LIPITOR 40 MG PO (17:35)
[2023-11-02 19:15] VITALS: BP 102/48
[2023-11-02] MEDS: DECADRON 60 MG IV (21:36)
[2023-11-02] MEDS: TYLENOL 650 MG PO (23:42)
[2023-11-02] MEDS: BENADRYL 25 MG IV (23:42)
[2023-11-03] VITALS (12 sets, daily range): BP systolic 97–143; BP diastolic 57–75; BMI 25.3
[2023-11-03] MEDS: SYNTHROID 75 MCG PO (05:42)
[2023-11-03] MEDS: TYLENOL 650 MG PO (06:14)
[2023-11-03] MEDS: BENADRYL 25 MG IV (06:15)
[2023-11-03] MEDS: MIRALAX 17 GRAMS PO (09:12)
[2023-11-03] MEDS: SODIUM CHLORIDE 1 GRAM PO ×2 (09:12→19:49)
[2023-11-03] MEDS: PROTONIX 40 MG PO (09:13)
[2023-11-03] MEDS: ASPIR LOW (ENTERIC COATED) 81 MG PO (09:13)
[2023-11-03] MEDS: VITAMIN D3 (cholecalciferol) 25 MCG PO (09:13)
[2023-11-03] MEDS: VITAMIN B-12 1000 MCG PO (09:14)
[2023-11-03] MEDS: FOLVITE 1 MG PO (09:14)
[2023-11-03] MEDS: URE-NA 15 GRAMS PO (09:15)
[2023-11-03] MEDS: TOPROL XL 25 MG PO (09:17)
[2023-11-03 12:42] LABS: Hematocrit 25.5 % (39.0-52.0); Mean Corp Hgb Conc. 32.9 g/dL (33.0-37.0); Mean Corpuscular Hgb 33.7 pg (27.0-31.0); Mean Corpuscular Volume 102.4 fL (80.0-94.0); Mean Platelet Volume 11.2 fL (7.4-10.4); Platelet Count 106 10^3/uL (130-400); Red Blood Cell Count 2.49 10^6/uL (4.70-6.10); Red Cell Dist. Width 30.8 % (11.5-14.5); White Blood Cell Count 9.6 10^3/uL (4.8-10.8)
[2023-11-03 12:44] LABS: Hemoglobin 8.4 g/dL (13.0-18.0)
--- NOTE | 2023-11-03 12:52 | PTCARENOTE ---
Assumed care of pt from previous nurse. Pt denies pain. pt completed 2nd unit of blood, tolerated without issue. Pt is on tele running nsr. Pt call henderson is within reach, pt rings [email or web address] cont to monitor.
[2023-11-03 13:13] LABS: Blood Urea Nitrogen 40 mg/dl (9-20); Carbon Dioxide 23 mmol/L (22-30); Chloride 99 mmol/L (98-107); Estimated Creatinine Clearance 87 ml/min; Glucose 115 mg/dl (70-99); Potassium 4.5 mmol/L (3.5-5.1); Sodium 127 mmol/L (135-145); eGFR > 60.00
--- NOTE | 2023-11-03 15:54 | W.PN.HOSP.TC ---
Today's Communication/Plan
-
One dose of Samsca
Sodium in am
If stable will discharge
Assessment / Plan
Assessment / Plan
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 Patient was on prednisone and recently admitted from 10/17/2023 to 10/21/2023 and was discharged on prednisone. Present with recurrent anemia hemoglobin of 5.3.
Patient received not so compatible blood transfusion 10 days ago with improvement of hemoglobin but dropped again. Denies any chest pain or shortness of breath. He feels tired.
On examination pale
Awake alert oriented
Cardiovascular system S1-S2 appreciated
Chest clear to auscultation
Abdomen soft and nontender
No pedal edema
NO CP or SOB
# Warm antibody autoimmune hemolytic anemia
Has been on steroids for 1 year
Was tapered off and restarted in September [address] Rojas�
Blood consent obtained
Transfusion pending-blood to be obtained from [facility]- still waiting
# Hypothyroidism-Synthroid
# Recurrent left pleural effusion -exudative in nature.�(09/25/2023, 09/27/2023, 10/09/2023)
Patient is known to pulmonary, Dr. Davis.�
Has had 3 thoracenteses in the past few weeks.� Pleural fluid cytology has been negative.
# Chronic hypotension
# History of CVA-left occipital infarct-suspect embolic bilateral watershed distribution of infarcts in cerebellum and cerebral hemispheres October 2023
On aspirin and statin
No history of A-fib
Patient currently with CAM monitor in place�
# Valvular heart disease
Tricuspid regurgitation, Mild to moderate on echo
Aortic regurgitation, �Mild to moderate on echo
Mitral valve prolapse, mild bileaflet w/o significant regurgitation on echo
Echo 10/19/2023: EF 55-60%.� Bileaflet mitral valve prolapse with mild mitral regurgitation.� Mild to moderate aortic regurgitation.� Small pericardial effusion with no hemodynamic compromise.� Normal size right atrium normal size left atrium.� There
is no cardiac embolic source seen within the limitations of transthoracic echocardiographic imaging.
# Chronic hyponatremia/SIADH
He was on torsemide which is causing him lightheadedness�
Now On sodium chloride tablets and Urea
Known to Dr. Curiel
will give a dose of Samsca
# Paroxysmal Atrial tachycardia/SVT-metoprolol 25 mg daily
Patient was taken off Toprol 50 mg twice daily on 10/17 secondary to an episode of bradycardia in emergency department.�
# History of early-stage colorectal cancer 2018
# History of bullous pemphigoid
# Diverticulosis
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
# Enlarged prostate-not on medicines. Outpatient follow-up with urology
# History of pancreatitis
# Hepatic steatosis
# Chronic lower extremity edema
# Ex-smoker
# DVT prophylaxis-SCDs
# Full code
Discussed with patient's at bedside
D/W RN
D/W Hematology
Anticipated Discharge: Within 24 hours
Subjective/Interval History
-
Date of Service: November 03, 2023
Objective Data
-
Labs:
Laboratory Results
11/03/23
12:31
WBC 9.6
Hgb 8.4 L D
Hct 25.5 L
Plt Count 106 L D
Sodium 127 L
Potassium 4.5
Chloride 99
Carbon Dioxide 23
BUN 40 H
Creatinine 0.7
Glucose 115 H
Calcium 8.0 L
Vital Signs:
Vital Signs
Temp Pulse Resp BP Pulse Ox
97.6 F 60 18 141/71 100
11/03/23 11:00 11/03/23 11:00 11/03/23 11:00 11/03/23 11:00 11/03/23 11:00
I&O
11/02/23 11/03/23 11/04/23
06:59 06:59 06:59
Intake Total 700 / 700 850 / 850 0 / 0
Balance 700 / 700 850 / 850 0 / 0
--- NOTE | 2023-11-03 16:53 | W.CON.NEPH ---
Consultation
-
Date/Time Consultation Requested: 11/03/2023 1600
Date/Time Consultation Performed: 11/03/2023 1750
Requesting Provider: Dr. Garcia
Performing Provider: Dr. Epps
Reason for Consultation: Hyponatremia
Medical History
-
Chief Complaint: hyponatremia
History of Present Illness:
Mr. Cui is a 78YO gentleman who sees Dr. Curiel as an outpatient though not consistently for hyponatremia. He has previously been treated with salt tablets as well as urea packet and loop diuretic therapy. His sodium level tends to run
around 130 on average. He also has hemolytic anemia treated with transfusions and followed by hematology. He does have hypertension on monotherapy regimen with metoprolol. He was admitted with worsening anemia with hemoglobin down to 5.8. He was
transfused 2 units with improvement up to 8.4. His sodium level has dipped today to 127 and we are asked to assist with management of that. He says that his blood pressures are running slightly higher than usual around 140 systolic.
Past Medical History
1. Hypertension.
2. Hyponatremia.
3. Hypothyroidism.
4. Bullous pemphigoid.
5. Warm autoimmune hemolytic anemia.
6. History of colon cancer and gout.
Past Surgical History: Other
Social History
Tobacco: Non-Smoker
Alcohol: None
Drug: None
Personal:
Living: With Family
Family History
No CKD
Allergies / Home Medications
Allergy/AdvReac Type Severity Reaction Status Date / Time
amlodipine Allergy pt states Verified 10/17/23 23:03
it caused
his sodium
level to
be low
Medication Instructions Recorded Confirmed Type
levothyroxine 75 mcg tablet 75 mcg PO DAILY AT 0700 Thyroid 12/03/18 10/30/23 History
betamethasone dipropionate 0.05 % 1 applic topical HSPRN PRN back 09/26/23 10/30/23 History
topical cream and side of abdomen
folic acid 1 mg tablet 1 mg PO DAILY Supplement 09/26/23 10/30/23 History
polyethylene glycol 3350 17 gram 17 g PO DAILYPRN PRN constipation 10/17/23 10/30/23 History
oral powder packet ([employer]yLax)
sodium chloride 1,000 mg soluble 1,000 mg PO BID Electrolyte 10/17/23 10/30/23 History
tablet Repletion
acetaminophen 325 mg tablet 650 mg PO Q4HPRN PRN mild pain/ 10/21/23 10/30/23 Rx
fever>100.5F #1 tab
aspirin 81 mg tablet,delayed 81 mg PO DAILY #30 tabs 10/21/23 10/30/23 Rx
release
atorvastatin 40 mg tablet 40 mg PO QPM #30 tabs 10/21/23 10/30/23 Rx
cyanocobalamin (vitamin B-12) 1,000 mcg PO DAILY #30 tabs 10/21/23 10/30/23 Rx
1,000 mcg tablet
metoprolol succinate 25 mg 25 mg PO DAILY #30 tabs 10/21/23 10/30/23 Rx
tablet,extended release 24 hr
pantoprazole 40 mg tablet,delayed 40 mg PO DAILY #30 tabs 10/21/23 10/30/23 Rx
release
urea 15 gram oral powder packet 1 packet PO DAILY #8 ea 10/21/23 10/30/23 Rx
cholecalciferol (vitamin D3) 25 25 mcg PO DAILY Supplement 10/30/23 10/30/23 History
mcg (1,000 unit) tablet
prednisone 10 mg tablet 60 mg PO DAILY Autoimmune Disorder 10/30/23 10/30/23 History
Review of Systems
-
No chest pain or shortness of breath. There is some dyspnea. No edema. He is compliant with his fluid restriction of 40 ounces per day. the remainder of the complete review of systems was negative.
Physical Exam
Vital Signs
Vital Signs
Temp Pulse Resp BP Pulse Ox
97.6 F 60 18 141/71 100
11/03/23 11:00 11/03/23 11:00 11/03/23 11:00 11/03/23 11:00 11/03/23 11:00
Lab Results
WBC 9.6 10^3/uL (4.8-10.8) 11/03/23 12:31
RBC 2.49 10^6/uL (4.70-6.10) L 11/03/23 12:31
Hgb 8.4 g/dL (13.0-18.0) L D 11/03/23 12:
Hct 25.5 % (39.0-52.0) L 11/03/23 12:31
Plt Count 106 10^3/uL (130-400) L D 11/03/23 12:31
Sodium 127 mmol/L (135-145) L 11/03/23 12:31
Potassium 4.5 mmol/L (3.5-5.1) 11/03/23 12:31
Chloride 99 mmol/L (98-107) 11/03/23 12:31
Carbon Dioxide 23 mmol/L (22-30) 11/03/23 12:31
BUN 40 mg/dl (9-20) H 11/03/23 12:31
Creatinine 0.7 mg/dL (0.7-1.3) 11/03/23 12:
eGFR > 60.00 11/03/23 12:31
Glucose 115 mg/dl (70-99) H 11/03/23 12:31
Calcium 8.0 mg/dl (8.4-10.2) L 11/03/23 12:31
Albumin 3.7 g/dl (3.5-5.0) 11/01/23 08:22
Physical Exam
General: AOx3
HEENT: PERRL, EOMI, Ear/Nose Intact, Hearing Normal, Oropharynx Clear/Moist, Neck Supple, Trachea Midline and No Thyromegaly
Respiratory: Clear
Cardiac: Regular Rate/Rhythm
Abdomen: Soft, Nontender, Nondistended, Normal Bowel Sounds and No Hepatosplenomegaly
Musculoskeletal: No Edema
Skin: No Rash and Normal Turgor
Psych: Mood/afflect pleasant and Insight/judgement good
Assessment/Plan
-
Assessment:
Hyponatremia, chronic
Acute anemia, hemolytic
mild left pleural effusion
ischemic stroke
HTN
hypothyrodisim
Plan:
Continue salt tablets and urea
Will add back light dose diuretic of Lasix 10 mg twice daily. He has no significant edema and the diuretic will not be used for blood pressure control
If additional blood pressure control is required increasing metoprolol will be the most practical option.
He will continue with his fluid restriction.
We discussed other options including increasing urea, demeclocycline, tolvaptan.
As he will be having frequent blood work for his hemoglobin, his basic metabolic panel may be checked weekly
Tolvaptan today
Discussed with the patient and his
Data Reviewed
-
CT Scan: Report Reviewed by me (CT head on October 18, 2023 shows no active disease)
Medical Tests (Nuc Med, Echo etc): Report Reviewed by me (Echocardiogram on 10/19/2023 shows ejection fraction 55%, moderate MR mild MR mitral valve prolapse small pericardial effusion)
Labs: Labs Reviewed by me
Old Records: Reviewed
[2023-11-03] MEDS: LIPITOR 40 MG PO (17:52)
[2023-11-03] MEDS: SAMSCA 15 MG PO (17:52)
--- NOTE | 2023-11-03 20:22 | W.PN.ONC2 ---
Today's Communication / Plan
-
Okay for D/C today.
Will arrange outpt labs.
Impression
Impression
Warm autoimmune hemolytic anemia
Leukocytosis, suspect due to steroids
Hyponatremia, suspect related to fluids
Plan
Plan
At hospital D/C, transition to dexamethasone 40 mg PO daily.
Starting Rituxan 11/07 in the office, already scheduled and approved by insurance.
Discuss with pt that it can take weeks for Rituxan to take effect. In the meantime, he should undergo CBC and type and cross twice per week with aggressive outpt transfusion so he does not end up back in the hospital a fifth time.
Continue daily folic acid.
Subjective/Objective
Chief Complaint
Hemolytic anemia
Subjective
Feeling better since transfusion of least incompatible blood overnight.
Vital Signs:
Vital Signs
Temp Pulse Resp BP Pulse Ox
97.3 F 57 18 122/64 98
11/03/23 19:05 11/03/23 19:05 11/03/23 19:05 11/03/23 20:16 11/03/23 19:05
Lab Results:
Laboratory Data
WBC 9.6 10^3/uL (4.8-10.8) 11/03/23 12:31
Hgb 8.4 g/dL (13.0-18.0) L D 11/03/23 12:31
Plt Count 106 10^3/uL (130-400) L D 11/03/23 12:31
eGFR > 60.00 11/03/23 12:31
Physical Exam
Awake, alert, non-toxic
Complexion flushed
[2023-11-03] MEDS: DECADRON 60 MG IV (22:06)
[2023-11-04 03:07] VITALS: BP 107/50
[2023-11-04 06:00] VITALS: BMI 25.0
[2023-11-04 07:19] VITALS: BP 147/79
[2023-11-04] MEDS: SYNTHROID 75 MCG PO (07:30)
[2023-11-04 07:41] LABS: Hematocrit 25.8 % (39.0-52.0); Hemoglobin 8.4 g/dL (13.0-18.0)
[2023-11-04] MEDS: FOLVITE 1 MG PO (08:20)
[2023-11-04] MEDS: LASIX 10 MG PO ×2 (08:20→15:54)
[2023-11-04] MEDS: ASPIR LOW (ENTERIC COATED) 81 MG PO (08:21)
[2023-11-04] MEDS: SODIUM CHLORIDE 1 GRAM PO (08:21)
[2023-11-04] MEDS: PROTONIX 40 MG PO (08:21)
[2023-11-04] MEDS: TOPROL XL 25 MG PO (08:21)
[2023-11-04] MEDS: VITAMIN B-12 1000 MCG PO (08:21)
[2023-11-04] MEDS: URE-NA 15 GRAMS PO (08:21)
[2023-11-04] MEDS: VITAMIN D3 (cholecalciferol) 25 MCG PO (08:21)
[2023-11-04 08:29] LABS: Blood Urea Nitrogen 27 mg/dl (9-20); Calcium 7.9 mg/dl (8.4-10.2); Carbon Dioxide 22 mmol/L (22-30); Chloride 102 mmol/L (98-107); Estimated Creatinine Clearance 76 ml/min; Glucose 120 mg/dl (70-99); Potassium 4.3 mmol/L (3.5-5.1); Sodium 130 mmol/L (135-145); eGFR > 60.00
[2023-11-04 11:43] VITALS: BP 139/65
--- NOTE | 2023-11-04 12:42 | W.PN.NEPH.PH ---
Today's Communication / Plan
-
follow BMP
Assessment/Plan
-
Assessment:
Hyponatremia, chronic
Acute anemia, hemolytic
mild left pleural effusion
ischemic stroke
HTN
hypothyrodisim
Plan:
Continue salt tablets and urea
Lasix 10 mg twice daily. He has no significant edema and the diuretic will not be used for blood pressure control
continue with fluid restriction.
We discussed other options including increasing urea, demeclocycline, tolvaptan.
BMP with CBC
dc planning
-
-
Date of Service: November 04, 2023
CC / HPI / ROS
-
Chief Complaint:
hyponatremia
History of Present Illness:
Na up to 130
BP stable
hgb stable
Review of Systems:
no CP/SOB
Labs
-
Labs:
WBC 9.6 10^3/uL (4.8-10.8) 11/03/23 12:31
RBC 2.49 10^6/uL (4.70-6.10) L 11/03/23 12:31
Hgb 8.4 g/dL (13.0-18.0) L 11/04/23 07:21
Hct 25.8 % (39.0-52.0) L 11/04/23 07:21
Plt Count 106 10^3/uL (130-400) L D 11/03/23 12:31
Sodium 130 mmol/L (135-145) L 11/04/23 07:21
Potassium 4.3 mmol/L (3.5-5.1) 11/04/23 07:21
Chloride 102 mmol/L (98-107) 11/04/23 07:21
Carbon Dioxide 22 mmol/L (22-30) 11/04/23 07:21
BUN 27 mg/dl (9-20) H 11/04/23 07:21
Creatinine 0.8 mg/dL (0.7-1.3) 11/04/23 07:21
eGFR > 60.00 11/04/23 07:21
Glucose 120 mg/dl (70-99) H 11/04/23 07:21
Calcium 7.9 mg/dl (8.4-10.2) L 11/04/23 07:21
Albumin 3.7 g/dl (3.5-5.0) 11/01/23 08:22
Physical Exam
-
Vital Signs:
Vital Signs
Temp Pulse Resp BP Pulse Ox
97.8 F 73 12 147/79 99
11/04/23 07:19 11/04/23 07:19 11/04/23 07:19 11/04/23 07:19 11/04/23 08:00
Cardiovascular:: Regular rate and rhythm
Respiratory:: Bilateral: Coarse
Lung Excursion:: Normal
Abdomen:: Nontender and Soft
Bowel Sounds:: Normal
Extremity Edema:: None: Bilateral:
--- NOTE | 2023-11-04 15:41 | W.PN.HOSP.TC ---
Today's Communication/Plan
-
Discharge
Assessment / Plan
Assessment / Plan
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 Patient was on prednisone and recently admitted from 10/17/2023 to 10/21/2023 and was discharged on prednisone. Present with recurrent anemia hemoglobin of 5.3.
Patient received not so compatible blood transfusion 10 days ago with improvement of hemoglobin but dropped again. Denies any chest pain or shortness of breath. He feels tired.
On examination pale
Awake alert oriented
Cardiovascular system S1-S2 appreciated
Chest clear to auscultation
Abdomen soft and nontender
No pedal edema
Feels good
# Warm antibody autoimmune hemolytic anemia
Has been on steroids for 1 year
Was tapered off and restarted in September [address] Rojas�
Blood consent obtained
Transfusion pending-blood to be obtained from [place]- still waiting
Plan is to start Rituxan next week-already scheduled and approved by insurance per Heme
Decadron 40 mg daily for discharge
# Hypothyroidism-Synthroid
# Recurrent left pleural effusion -exudative in nature.�(09/25/2023, 09/27/2023, 10/09/2023)
Patient is known to pulmonary, Dr. Davis.�
Has had 3 thoracenteses in the past few weeks.� Pleural fluid cytology has been negative.
# Chronic hypotension
# History of CVA-left occipital infarct-suspect embolic bilateral watershed distribution of infarcts in cerebellum and cerebral hemispheres October 2023
On aspirin and statin
No history of A-fib
Patient currently with CAM monitor in place�
# Valvular heart disease
Tricuspid regurgitation, Mild to moderate on echo
Aortic regurgitation, �Mild to moderate on echo
Mitral valve prolapse, mild bileaflet w/o significant regurgitation on echo
Echo 10/19/2023: EF 55-60%.� Bileaflet mitral valve prolapse with mild mitral regurgitation.� Mild to moderate aortic regurgitation.� Small pericardial effusion with no hemodynamic compromise.� Normal size right atrium normal size left atrium.� There
is no cardiac embolic source seen within the limitations of transthoracic echocardiographic imaging.
# Chronic hyponatremia/SIADH
He was on torsemide which is causing him lightheadedness�
Now On sodium chloride tablets and Urea
Known to Dr. Curiel
Got a dose of Samsca
Sodium better today
# Paroxysmal Atrial tachycardia/SVT-metoprolol 25 mg daily
Patient was taken off Toprol 50 mg twice daily on 10/17 secondary to an episode of bradycardia in emergency department.�
# History of early-stage colorectal cancer 2018
# History of bullous pemphigoid
# Diverticulosis
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
# Enlarged prostate-not on medicines. Outpatient follow-up with urology
# History of pancreatitis
# Hepatic steatosis
# Chronic lower extremity edema
# Ex-smoker
# DVT prophylaxis-SCDs
# Full code
Discussed with patient's at bedside
D/W RN
D/W Hematology and renal
Discharge time 32 min
Anticipated Discharge: Today
Subjective/Interval History
-
Date of Service: November 04, 2023
Objective Data
-
Labs:
Laboratory Results
11/04/23
07:21
Hgb 8.4 L
Hct 25.8 L
Sodium 130 L
Potassium 4.3
Chloride 102
Carbon Dioxide 22
BUN 27 H
Creatinine 0.8
Glucose 120 H
Calcium 7.9 L
Vital Signs:
Vital Signs
Temp Pulse Resp BP Pulse Ox
97.8 F 61 16 139/65 98
11/04/23 11:43 11/04/23 11:43 11/04/23 11:43 11/04/23 11:43 11/04/23 11:43
I&O
11/03/23 11/04/23 11/05/23
06:59 06:59 06:59
Intake Total 850 / 850 1783 / 1783
Balance 850 / 850 1783 / 1783
--- NOTE | 2023-11-04 15:50 | W.DS.TRANS ---
Addendum entered and electronically signed by Wyatt Garcia MD 11/04/23 17:37:
Dictation- [id number]
Original Note:
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
-
Discharge Instructions:
Discharge Diagnosis/Procedures Warm antibody autoimmune hemolytic anemia,
hypothyroidism, recurrent left pleural effusion,
history of CVA, valvular heart disease, SIADH,
SVT, diverticulosis, enlarged prostate, chronic
multilevel vertebral body endplate fractures,
history of bullous pemphigoid, fatty liver,
chronic leg swelling
Diet As tolerated
Activity As tolerated,With assistance
Driving Restrictions As prior to admission
Blood Work cbc , bmp 1 week
Instructions:
Stand-Alone Forms:
Changes to Home Medications: Yes
Discharge Medications:
DC Medications w/original date entered in [facility]
levothyroxine 75 mcg tablet 75 mcg PO DAILY AT 0700 Thyroid 12/03/18
betamethasone dipropionate 0.05 % topical cream 1 applic topical HSPRN PRN back and side of abdomen 09/26/23
folic acid 1 mg tablet 1 mg PO DAILY Supplement 09/26/23
polyethylene glycol 3350 17 gram oral powder packet (HealthyLax) 17 g PO DAILYPRN PRN constipation 10/17/23
sodium chloride 1,000 mg soluble tablet 1,000 mg PO BID Electrolyte Repletion 10/17/23
acetaminophen 325 mg tablet 650 mg PO Q4HPRN PRN mild pain/ fever>100.5F #1 tab 10/21/23
cholecalciferol (vitamin D3) 25 mcg (1,000 unit) tablet 25 mcg PO DAILY Supplement 10/30/23
aspirin 81 mg tablet,delayed release 81 mg PO DAILY Blood clot prevention/tx #30 tabs 11/03/23
atorvastatin 40 mg tablet 40 mg PO QPM High cholesterol #30 tabs 11/03/23
cyanocobalamin (vitamin B-12) 1,000 mcg tablet 1,000 mcg PO DAILY Supplement #30 tabs 11/03/23
metoprolol succinate 25 mg tablet,extended release 24 hr 25 mg PO DAILY Heart disease/condition #30 tabs 11/03/23
pantoprazole 40 mg tablet,delayed release 40 mg PO DAILY Gastrointestinal issue #30 tabs 11/03/23
urea 15 gram oral powder packet 1 packet PO DAILY Electrolyte Repletion #8 ea 11/03/23
dexamethasone 4 mg tablet 40 mg PO DAILY hemolytic anemia #120 tabs 11/04/23
furosemide 20 mg tablet 10 mg PO BID AT 0800,1600 hyponatremia #60 tabs 11/04/23
Home Medication Changes
new
dexamethasone 4 mg tablet 40 mg PO DAILY hemolytic anemia #120 tabs 11/04/23
furosemide 20 mg tablet 10 mg PO BID AT 0800,1600 hyponatremia #60 tabs 11/04/23
Pending Results: No
--- NOTE | 2023-11-04 15:59 | CM ---
patient seen bedside.
Denies home care needs.
IMM reviewed and signed.
Plan: home no needs.
--- NOTE | 2023-11-04 16:09 | W.PN.ONC2 ---
Today's Communication / Plan
-
Okay for D/C.
Instructions sent to office to arrange CBC and T&C twice per week as he has required multiple hospitalizations for anemia.
Impression
Impression
Warm autoimmune hemolytic anemia
Leukocytosis, suspect due to steroids
Hyponatremia, suspect related to fluids
Plan
Plan
At hospital D/C, transition to dexamethasone 40 mg PO daily.
Starting Rituxan 11/07 in the office, already scheduled and approved by insurance.
Discuss with pt that it can take weeks for Rituxan to take effect. In the meantime, he should undergo CBC and type and cross twice per week with aggressive outpt transfusion so he does not end up back in the hospital a fifth time.
Continue daily folic acid.
Subjective/Objective
Chief Complaint
Hemolytic anemia
Subjective
Feels well, denies complaint, Hgb stable overnight
Vital Signs:
Vital Signs
Temp Pulse Resp BP Pulse Ox
97.8 F 61 16 139/65 98
11/04/23 11:43 11/04/23 11:43 11/04/23 11:43 11/04/23 11:43 11/04/23 11:43
Lab Results:
Laboratory Data
WBC 9.6 10^3/uL (4.8-10.8) 11/03/23 12:31
Hgb 8.4 g/dL (13.0-18.0) L 11/04/23 07:21
Plt Count 106 10^3/uL (130-400) L D 11/03/23 12:31
eGFR > 60.00 11/04/23 07:21
== END 2023-11-04 16:13 | disposition home or self-care (01) | DRG 809 ==
LOC: 4 WEST ACU 21:16
PROVIDERS: Emergency Medicine; Physician Assistant Medical; ADMITTING PHYSICIAN Hospitalist; ATTENDING PHYSICIAN Hospitalist; CONSULT PHYSICIAN Specialist; EMERGENCY PHYSICIAN Emergency Medicine; FAMILY PHYSICIAN Internal Medicine; OTHER PHYSICIAN Internal Medicine Hematology & Oncology
PROC: 30233N1 Transfusion of Nonautologous Red Blood Cells into Peripheral Vein, Percutaneous Approach (ICD-10-PCS; 2023-11-03)
DX: D59.11 Warm autoimmune hemolytic anemia (principal); E22.2 Syndrome of inappropriate secretion of antidiuretic hormone; J90 Pleural effusion, not elsewhere classified; I47.10 Supraventricular tachycardia, unspecified; I25.10 Atherosclerotic heart disease of native coronary artery without angina pectoris; Z86.73 Personal history of transient ischemic attack (TIA), and cerebral infarction without residual deficits; E78.5 Hyperlipidemia, unspecified; I10 Essential (primary) hypertension; E03.9 Hypothyroidism, unspecified; I95.89 Other hypotension; K57.90 Diverticulosis of intestine, part unspecified, without perforation or abscess without bleeding; N40.0 Benign prostatic hyperplasia without lower urinary tract symptoms
CPT/HCPCS: 36415; 80048; 80053; 82248; 83615; 84550; 85014; 85018; 85025; 85027; 85045; 86704; 86706; 86850; 86870; 86900; 86901; 86920; 86922; 87340; 99285; P9016

== ENCOUNTER → 2023-11-07 10:27 | Outpatient (REF) | payer MEDICARE, BC, SELFPAY ==
[2023-11-07 11:13] LABS: % Immature Granulocytes 1.5 % (0-0.5); % Lymphocytes 1.4 % (20.5-51.1); % Monocytes 1.4 % (1.7-9.3); % Neutrophils 95.7 % (42.2-75.2); Absolute Immature Granulocytes 0.1 10^3/uL (0-0.05); Absolute Lymphocytes 0.1 10^3/uL (1.2-3.4); Absolute Monocytes 0.1 10^3/uL (0.1-0.6); Absolute Neutrophils 8.4 10^3/uL (1.4-6.5); Hematocrit 28.3 % (39.0-52.0); Hemoglobin 9.6 g/dL (13.0-18.0); Mean Corp Hgb Conc. 33.9 g/dL (33.0-37.0); Mean Corpuscular Hgb 34.7 pg (27.0-31.0); Mean Corpuscular Volume 102.2 fL (80.0-94.0); Nucleated Red Blood Cells % 0.2 % (-); Red Blood Cell Count 2.77 10^6/uL (4.70-6.10); Red Cell Dist. Width 25.5 % (11.5-14.5); White Blood Cell Count 8.8 10^3/uL (4.8-10.8)
[2023-11-07 11:41] LABS: Carbon Dioxide 20 mmol/L (22-30); Chloride 97 mmol/L (98-107); Potassium 4.4 mmol/L (3.5-5.1); Sodium 126 mmol/L (135-145)
[2023-11-07 11:48] LABS: Anisocytosis 2+; Macrocytosis 1+; Normal RBC Morphology No; Ovalocytes Slight; Platelet Count 87 10^3/uL (130-400); Poikilocytosis 1+; Stomatocytes 1+
== END ==
LOC: REG 10:27
PROVIDERS: ATTENDING PHYSICIAN Specialist; FAMILY PHYSICIAN Internal Medicine; REFERRING PHYSICIAN Internal Medicine Hematology & Oncology
DX: D59.9 Acquired hemolytic anemia, unspecified (principal); L12.9 Pemphigoid, unspecified; I10 Essential (primary) hypertension; E03.9 Hypothyroidism, unspecified; D50.0 Iron deficiency anemia secondary to blood loss (chronic)
CPT/HCPCS: 36415; 80051; 85025

== ENCOUNTER 2023-11-08 10:36 | Outpatient (RCR) | payer MEDICARE, BC, SELFPAY ==
[2023-11-08 09:30] LABS: % Basophils 0.2 % (0-2); % Immature Granulocytes 0.7 % (0-0.5); % Monocytes 1.9 % (1.7-9.3); % Neutrophils 96.2 % (42.2-75.2); Absolute Immature Granulocytes 0.1 10^3/uL (0-0.05); Absolute Lymphocytes 0.1 10^3/uL (1.2-3.4); Absolute Monocytes 0.2 10^3/uL (0.1-0.6); Absolute Neutrophils 10.4 10^3/uL (1.4-6.5); Hemoglobin 8.5 g/dL (13.0-18.0); Mean Corpuscular Hgb 35.1 pg (27.0-31.0); Mean Corpuscular Volume 103.3 fL (80.0-94.0); Platelet Count 79 10^3/uL (130-400); Red Blood Cell Count 2.42 10^6/uL (4.70-6.10); White Blood Cell Count 10.8 10^3/uL (4.8-10.8)
[2023-11-08 10:50] LABS: Uric Acid 4.2 mg/dl (3.5-8.5)
[2023-11-15 11:26] LABS: % Basophils 0.1 % (0-2); % Eosinophils 0.2 % (0-6); % Immature Granulocytes 0.7 % (0-0.5); % Lymphocytes 1.4 % (20.5-51.1); % Monocytes 3.3 % (1.7-9.3); % Neutrophils 94.3 % (42.2-75.2); Absolute Immature Granulocytes 0.1 10^3/uL (0-0.05); Absolute Lymphocytes 0.2 10^3/uL (1.2-3.4); Absolute Monocytes 0.4 10^3/uL (0.1-0.6); Absolute Neutrophils 10.7 10^3/uL (1.4-6.5); Hemoglobin 8.7 g/dL (13.0-18.0); Mean Corp Hgb Conc. 33.5 g/dL (33.0-37.0); Mean Corpuscular Hgb 36.1 pg (27.0-31.0); Mean Corpuscular Volume 107.9 fL (80.0-94.0); Mean Platelet Volume 10.3 fL (7.4-10.4); Platelet Count 120 10^3/uL (130-400); Red Blood Cell Count 2.41 10^6/uL (4.70-6.10); Red Cell Dist. Width 18.4 % (11.5-14.5); White Blood Cell Count 11.3 10^3/uL (4.8-10.8)
[2023-11-15 11:59] LABS: ALT (SGPT) 19 U/L (0-50); AST (SGOT) 19 U/L (17-59); Albumin 3.7 g/dl (3.5-5.0); Alkaline Phosphatase 102 U/L (38-126); Blood Urea Nitrogen 35 mg/dl (9-20); Calcium 8.4 mg/dl (8.4-10.2); Carbon Dioxide 27 mmol/L (22-30); Chloride 94 mmol/L (98-107); Glucose 95 mg/dl (70-99); Potassium 3.4 mmol/L (3.5-5.1); Sodium 130 mmol/L (135-145); Total Bilirubin 2.3 mg/dl (0.2-1.3); Total Protein 5.8 g/dl (6.3-8.2); eGFR > 60.00
[2023-11-22 12:15] LABS: % Basophils 0.2 % (0-2); % Immature Granulocytes 1.6 % (0-0.5); % Lymphocytes 1.2 % (20.5-51.1); % Monocytes 1.7 % (1.7-9.3); % Neutrophils 95.3 % (42.2-75.2); Absolute Immature Granulocytes 0.2 10^3/uL (0-0.05); Absolute Lymphocytes 0.1 10^3/uL (1.2-3.4); Absolute Monocytes 0.2 10^3/uL (0.1-0.6); Absolute Neutrophils 10.2 10^3/uL (1.4-6.5); Hematocrit 25.9 % (39.0-52.0); Hemoglobin 8.6 g/dL (13.0-18.0); Mean Corp Hgb Conc. 33.2 g/dL (33.0-37.0); Mean Corpuscular Hgb 35.4 pg (27.0-31.0); Mean Corpuscular Volume 106.6 fL (80.0-94.0); Mean Platelet Volume 9.8 fL (7.4-10.4); Platelet Count 237 10^3/uL (130-400); Red Blood Cell Count 2.43 10^6/uL (4.70-6.10); Red Cell Dist. Width 16.2 % (11.5-14.5); White Blood Cell Count 10.7 10^3/uL (4.8-10.8)
[2023-11-29 13:52] LABS: % Basophils 0.3 % (0-2); % Eosinophils 0.2 % (0-6); % Immature Granulocytes 5.2 % (0-0.5); % Lymphocytes 2.7 % (20.5-51.1); % Monocytes 4.4 % (1.7-9.3); % Neutrophils 87.2 % (42.2-75.2); Absolute Immature Granulocytes 0.6 10^3/uL (0-0.05); Absolute Lymphocytes 0.3 10^3/uL (1.2-3.4); Absolute Monocytes 0.5 10^3/uL (0.1-0.6); Absolute Neutrophils 9.8 10^3/uL (1.4-6.5); Hematocrit 26.3 % (39.0-52.0); Hemoglobin 8.6 g/dL (13.0-18.0); Mean Corp Hgb Conc. 32.7 g/dL (33.0-37.0); Mean Corpuscular Hgb 35.4 pg (27.0-31.0); Mean Corpuscular Volume 108.2 fL (80.0-94.0); Mean Platelet Volume 10.1 fL (7.4-10.4); Platelet Count 279 10^3/uL (130-400); Red Blood Cell Count 2.43 10^6/uL (4.70-6.10); Red Cell Dist. Width 15.5 % (11.5-14.5); White Blood Cell Count 11.3 10^3/uL (4.8-10.8)
[2023-11-29 16:18] LABS: ALT (SGPT) 22 U/L (0-50); AST (SGOT) 19 U/L (17-59); Albumin 4.1 g/dl (3.5-5.0); Alkaline Phosphatase 84 U/L (38-126); Blood Urea Nitrogen 35 mg/dl (9-20); Calcium 8.8 mg/dl (8.4-10.2); Carbon Dioxide 26 mmol/L (22-30); Chloride 94 mmol/L (98-107); Glucose 81 mg/dl (70-99); Potassium 3.6 mmol/L (3.5-5.1); Sodium 132 mmol/L (135-145); Total Bilirubin 2.1 mg/dl (0.2-1.3); Total Protein 6.1 g/dl (6.3-8.2); eGFR > 60.00
== END 2023-12-02 23:59 | disposition home or self-care (01) ==
LOC: OID 10:36
PROVIDERS: ATTENDING PHYSICIAN Internal Medicine Hematology & Oncology
DX: D59.9 Acquired hemolytic anemia, unspecified (principal)
CPT/HCPCS: 80053; 84550; 85025

== ENCOUNTER → 2023-11-12 09:29 | Outpatient (REF) | payer MEDICARE, BC, SELFPAY ==
[2023-11-12 10:57] LABS: Blood Urea Nitrogen 38 mg/dl (9-20); Calcium 8.1 mg/dl (8.4-10.2); Carbon Dioxide 20 mmol/L (22-30); Chloride 93 mmol/L (98-107); Glucose 109 mg/dl (70-99); Potassium 3.7 mmol/L (3.5-5.1); Sodium 127 mmol/L (135-145); eGFR > 60.00
== END ==
LOC: REG 09:29
PROVIDERS: ATTENDING PHYSICIAN Specialist; FAMILY PHYSICIAN Internal Medicine
DX: E87.1 Hypo-osmolality and hyponatremia (principal); I10 Essential (primary) hypertension
CPT/HCPCS: 36415; 80048

== ENCOUNTER → 2023-11-13 08:41 | Outpatient (REF) | payer MEDICARE, BC, SELFPAY ==
[2023-11-13 09:24] LABS: % Eosinophils 0.8 % (0-6); % Immature Granulocytes 1.2 % (0-0.5); % Lymphocytes 5.4 % (20.5-51.1); % Neutrophils 84.6 % (42.2-75.2); Absolute Eosinophils 0.1 10^3/uL (0-0.7); Absolute Immature Granulocytes 0.1 10^3/uL (0-0.05); Absolute Lymphocytes 0.5 10^3/uL (1.2-3.4); Absolute Monocytes 0.8 10^3/uL (0.1-0.6); Absolute Neutrophils 8.4 10^3/uL (1.4-6.5); Hematocrit 24.5 % (39.0-52.0); Hemoglobin 8.4 g/dL (13.0-18.0); Mean Corp Hgb Conc. 34.3 g/dL (33.0-37.0); Mean Corpuscular Hgb 35.6 pg (27.0-31.0); Mean Corpuscular Volume 103.8 fL (80.0-94.0); Nucleated Red Blood Cells % 0 % (-); Platelet Count 118 10^3/uL (130-400); Red Blood Cell Count 2.36 10^6/uL (4.70-6.10); Red Cell Dist. Width 20.5 % (11.5-14.5); White Blood Cell Count 9.9 10^3/uL (4.8-10.8)
[2023-11-13 10:00] LABS: ALT (SGPT) 20 U/L (0-50); AST (SGOT) 22 U/L (17-59); Albumin 3.8 g/dl (3.5-5.0); Alkaline Phosphatase 95 U/L (38-126); Blood Urea Nitrogen 34 mg/dl (9-20); Calcium 8.6 mg/dl (8.4-10.2); Carbon Dioxide 22 mmol/L (22-30); Chloride 98 mmol/L (98-107); Glucose 80 mg/dl (70-99); Potassium 3.6 mmol/L (3.5-5.1); Sodium 127 mmol/L (135-145); Total Bilirubin 2.4 mg/dl (0.2-1.3); eGFR > 60.00
== END ==
LOC: REG 08:41
PROVIDERS: ATTENDING PHYSICIAN Internal Medicine Hematology & Oncology; FAMILY PHYSICIAN Internal Medicine
DX: D59.9 Acquired hemolytic anemia, unspecified (principal); L12.9 Pemphigoid, unspecified
CPT/HCPCS: 36415; 80053; 85025

== ENCOUNTER → 2023-12-07 10:22 | Outpatient (REF) | payer MEDICARE, BC, SELFPAY ==
[2023-12-07 10:56] LABS: % Basophils 0.1 % (0-2); % Eosinophils 0.1 % (0-6); % Immature Granulocytes 3.1 % (0-0.5); % Lymphocytes 1.6 % (20.5-51.1); % Monocytes 4.5 % (1.7-9.3); % Neutrophils 90.6 % (42.2-75.2); Absolute Immature Granulocytes 0.5 10^3/uL (0-0.05); Absolute Lymphocytes 0.3 10^3/uL (1.2-3.4); Absolute Monocytes 0.8 10^3/uL (0.1-0.6); Absolute Neutrophils 15.4 10^3/uL (1.4-6.5); Hematocrit 25.4 % (39.0-52.0); Hemoglobin 8.2 g/dL (13.0-18.0); Mean Corp Hgb Conc. 32.3 g/dL (33.0-37.0); Mean Corpuscular Hgb 35.2 pg (27.0-31.0); Mean Platelet Volume 9.4 fL (7.4-10.4); Nucleated Red Blood Cells % 0.3 % (-); Platelet Count 243 10^3/uL (130-400); Red Blood Cell Count 2.33 10^6/uL (4.70-6.10); Red Cell Dist. Width 15.9 % (11.5-14.5)
[2023-12-07 11:32] LABS: ALT (SGPT) 24 U/L (0-50); AST (SGOT) 19 U/L (17-59); Albumin 4.1 g/dl (3.5-5.0); Alkaline Phosphatase 90 U/L (38-126); Blood Urea Nitrogen 38 mg/dl (9-20); Calcium 8.9 mg/dl (8.4-10.2); Carbon Dioxide 29 mmol/L (22-30); Chloride 98 mmol/L (98-107); Glucose 86 mg/dl (70-99); Sodium 131 mmol/L (135-145); Total Bilirubin 2.2 mg/dl (0.2-1.3); Uric Acid 8.2 mg/dl (3.5-8.5); eGFR > 60.00
== END ==
LOC: REG 10:22
PROVIDERS: ATTENDING PHYSICIAN Internal Medicine Hematology & Oncology; FAMILY PHYSICIAN Internal Medicine
DX: D59.9 Acquired hemolytic anemia, unspecified (principal); L12.9 Pemphigoid, unspecified
CPT/HCPCS: 36415; 80053; 84550; 85025

== ENCOUNTER → 2023-12-13 10:41 | Outpatient (REF) | payer MEDICARE, BC, SELFPAY ==
[2023-12-13 12:02] LABS: % Basophils 0.1 % (0-2); % Eosinophils 0.1 % (0-6); % Immature Granulocytes 2.7 % (0-0.5); % Lymphocytes 0.8 % (20.5-51.1); % Monocytes 2.2 % (1.7-9.3); % Neutrophils 94.1 % (42.2-75.2); Absolute Immature Granulocytes 0.3 10^3/uL (0-0.05); Absolute Lymphocytes 0.1 10^3/uL (1.2-3.4); Absolute Monocytes 0.3 10^3/uL (0.1-0.6); Absolute Neutrophils 11.3 10^3/uL (1.4-6.5); Hematocrit 24.3 % (39.0-52.0); Hemoglobin 7.6 g/dL (13.0-18.0); Mean Corp Hgb Conc. 31.3 g/dL (33.0-37.0); Mean Corpuscular Hgb 34.7 pg (27.0-31.0); Mean Platelet Volume 9.6 fL (7.4-10.4); Nucleated Red Blood Cells % 0.2 % (-); Platelet Count 202 10^3/uL (130-400); Red Blood Cell Count 2.19 10^6/uL (4.70-6.10); Red Cell Dist. Width 15.9 % (11.5-14.5); Reticulocyte Count 15.9 % (0.4-2.8)
[2023-12-13 12:18] LABS: ALT (SGPT) 22 U/L (0-50); AST (SGOT) 20 U/L (17-59); Albumin 4.3 g/dl (3.5-5.0); Alkaline Phosphatase 76 U/L (38-126); Blood Urea Nitrogen 34 mg/dl (9-20); Direct Bilirubin 0.5 mg/dl (0.0-0.4); Iron 92 ug/dl (49-181); Total Bilirubin 2.7 mg/dl (0.2-1.3); Total Protein 6.4 g/dl (6.3-8.2)
[2023-12-13 12:30] LABS: Percent Saturation 42 % (20-50); Total Iron Binding Capacity 219 ug/dl (261-462)
[2023-12-13 12:43] LABS: LDH 286 U/L (120-246)
[2023-12-13 13:10] LABS: Vitamin B12 793 pg/ml (239-931)
[2023-12-14 15:22] LABS: Haptoglobin 74 mg/dL (30-200)
[2023-12-16 00:04] LABS: Albumin 4.04 g/dL (3.75-5.01); Alpha 2 Globulin 0.56 g/dL (0.48-1.05); Free Kappa Light Chains,Quant 16.09 mg/L (3.30-19.40); Free Lambda Light Chains,Quant 12.04 mg/L (5.71-26.30); IgA 148 mg/dL (68-408); IgG 485 mg/dL (768-1632); IgM 70 mg/dL (35-263); Immunofixation Electrophoresis IFE Done; Kappa/Lambda Fr Light Ratio 1.34 (0.26-1.65); Total Protein-Electrophoresis 6.1 g/dL (6.3-8.2)
== END ==
LOC: REG 10:41
PROVIDERS: ATTENDING PHYSICIAN Internal Medicine Hematology & Oncology; FAMILY PHYSICIAN Internal Medicine
DX: D59.9 Acquired hemolytic anemia, unspecified (principal); L12.9 Pemphigoid, unspecified; E87.1 Hypo-osmolality and hyponatremia; D64.9 Anemia, unspecified; Z79.899 Other long term (current) drug therapy
CPT/HCPCS: 36415; 80076; 82565; 82607; 82728; 82784; 83010; 83521; 83540; 83550; 83615; 84155; 84165; 84520; 85025; 85045; 86334; 86880

== ENCOUNTER → 2023-12-20 10:19 | Outpatient (REF) | payer MEDICARE, BC, SELFPAY ==
[2023-12-20 12:09] LABS: % Basophils 0.1 % (0-2); % Eosinophils 0.2 % (0-6); % Immature Granulocytes 3.1 % (0-0.5); % Lymphocytes 1.2 % (20.5-51.1); % Monocytes 3.6 % (1.7-9.3); % Neutrophils 91.8 % (42.2-75.2); Absolute Immature Granulocytes 0.4 10^3/uL (0-0.05); Absolute Lymphocytes 0.2 10^3/uL (1.2-3.4); Absolute Monocytes 0.5 10^3/uL (0.1-0.6); Absolute Neutrophils 11.4 10^3/uL (1.4-6.5); Hematocrit 24.3 % (39.0-52.0); Hemoglobin 7.7 g/dL (13.0-18.0); Mean Corp Hgb Conc. 31.7 g/dL (33.0-37.0); Mean Corpuscular Volume 110.5 fL (80.0-94.0); Mean Platelet Volume 10.9 fL (7.4-10.4); Nucleated Red Blood Cells % 0.2 % (-); Platelet Count 194 10^3/uL (130-400); Red Cell Dist. Width 15.2 % (11.5-14.5); White Blood Cell Count 12.4 10^3/uL (4.8-10.8)
[2023-12-20 12:18] LABS: Blood Urea Nitrogen 33 mg/dl (9-20); Calcium 8.7 mg/dl (8.4-10.2); Carbon Dioxide 23 mmol/L (22-30); Chloride 99 mmol/L (98-107); Glucose 72 mg/dl (70-99); Potassium 4.3 mmol/L (3.5-5.1); Sodium 127 mmol/L (135-145); eGFR > 60.00
== END ==
LOC: REG 10:19
PROVIDERS: ATTENDING PHYSICIAN Internal Medicine Hematology & Oncology; FAMILY PHYSICIAN Specialist
DX: E87.1 Hypo-osmolality and hyponatremia (principal); I10 Essential (primary) hypertension
CPT/HCPCS: 36415; 80048; 85025

== ENCOUNTER → 2023-12-27 11:37 | Outpatient (REF) | payer MEDICARE, BC, SELFPAY ==
[2023-12-27 14:09] LABS: % Basophils 0.2 % (0-2); % Eosinophils 0.1 % (0-6); % Immature Granulocytes 3.2 % (0-0.5); % Lymphocytes 0.7 % (20.5-51.1); % Monocytes 1.9 % (1.7-9.3); % Neutrophils 93.9 % (42.2-75.2); Absolute Immature Granulocytes 0.4 10^3/uL (0-0.05); Absolute Lymphocytes 0.1 10^3/uL (1.2-3.4); Absolute Monocytes 0.2 10^3/uL (0.1-0.6); Absolute Neutrophils 11.9 10^3/uL (1.4-6.5); Hematocrit 26.6 % (39.0-52.0); Hemoglobin 8.2 g/dL (13.0-18.0); Mean Corp Hgb Conc. 30.8 g/dL (33.0-37.0); Mean Corpuscular Hgb 34.6 pg (27.0-31.0); Mean Corpuscular Volume 112.2 fL (80.0-94.0); Mean Platelet Volume 9.9 fL (7.4-10.4); Nucleated Red Blood Cells % 0.2 % (-); Platelet Count 244 10^3/uL (130-400); Red Blood Cell Count 2.37 10^6/uL (4.70-6.10); Red Cell Dist. Width 14.7 % (11.5-14.5); White Blood Cell Count 12.7 10^3/uL (4.8-10.8)
[2023-12-27 15:07] LABS: Blood Urea Nitrogen 39 mg/dl (9-20); Calcium 8.9 mg/dl (8.4-10.2); Carbon Dioxide 23 mmol/L (22-30); Chloride 93 mmol/L (98-107); Glucose 79 mg/dl (70-99); Sodium 128 mmol/L (135-145); eGFR > 60.00
== END ==
LOC: REG 11:37
PROVIDERS: ATTENDING PHYSICIAN Internal Medicine Hematology & Oncology; FAMILY PHYSICIAN Internal Medicine; REFERRING PHYSICIAN Specialist
DX: D59.9 Acquired hemolytic anemia, unspecified (principal); L12.9 Pemphigoid, unspecified
CPT/HCPCS: 36415; 80048; 85025

== ENCOUNTER 2024-01-01 17:35 | Inpatient (IN) | payer MEDICARE, BC, SELFPAY ==
[2024-01-01] VITALS (8 sets, daily range): BP systolic 92–120; BP diastolic 56–79; BMI 28.1; BMI 27.4
[2024-01-01 15:05] LABS: % Basophils 0.1 % (0-2); % Immature Granulocytes 5.6 % (0-0.5); % Lymphocytes 0.6 % (20.5-51.1); % Neutrophils 92.7 % (42.2-75.2); Absolute Immature Granulocytes 0.6 10^3/uL (0-0.05); Absolute Lymphocytes 0.1 10^3/uL (1.2-3.4); Absolute Monocytes 0.1 10^3/uL (0.1-0.6); Absolute Neutrophils 10.7 10^3/uL (1.4-6.5); Mean Corp Hgb Conc. 33.3 g/dL (33.0-37.0); Mean Corpuscular Hgb 34.1 pg (27.0-31.0); Mean Corpuscular Volume 102.4 fL (80.0-94.0); Mean Platelet Volume 9.7 fL (7.4-10.4); Nucleated Red Blood Cells % 0.2 % (-); Platelet Count 220 10^3/uL (130-400); Red Blood Cell Count 2.05 10^6/uL (4.70-6.10); Red Cell Dist. Width 14.7 % (11.5-14.5); White Blood Cell Count 11.5 10^3/uL (4.8-10.8)
[2024-01-01 15:17] LABS: Lactic Acid 4.9 mmol/L (0.7-2.0)
[2024-01-01 15:21] LABS: COVID-19 Antigen Negative (Negative)
[2024-01-01 15:22] LABS: ALT (SGPT) 36 U/L (0-50); AST (SGOT) 35 U/L (17-59); Alkaline Phosphatase 87 U/L (38-126); Blood Urea Nitrogen 33 mg/dl (9-20); Calcium 7.9 mg/dl (8.4-10.2); Carbon Dioxide 20 mmol/L (22-30); Chloride 91 mmol/L (98-107); Estimated Creatinine Clearance 76 ml/min; Glucose 172 mg/dl (70-99); Potassium 3.8 mmol/L (3.5-5.1); Sodium 123 mmol/L (135-145); Total Bilirubin 1.7 mg/dl (0.2-1.3); Total Protein 4.9 g/dl (6.3-8.2); eGFR > 60.00
[2024-01-01 15:35] LABS: NT-proBNP 2150 pg/ml
[2024-01-01 15:36] LABS: Procalcitonin 0.56 ng/ml (0.0-0.25)
--- NOTE | 2024-01-01 15:38 | ED.GENMED ---
History of Present Illness
General
Chief Complaint: Weakness
Source: patient and spouse
Exam Limitations: none
Time Seen by Provider: 01/01/24 14:34
Nursing documentation reviewed up to this point in time: agreed with
Travel History
Have you had any contact with someone who has COVID-19?: No
Do you have any symptoms of coronavirus? Fever > 100 degrees, chills, cough, shortness of breath, sore throat, loss of taste or smell, muscle aches, or headache?: No
History of Present Illness
History of Present Illness:
78-year-old male with a past medical history of hypertension, chronic hyponatremia, hypothyroidism, autoimmune hemolytic anemia who presents to the emergency department with his for evaluation of weakness and shortness of breath. Patient
reports that the symptoms have been ongoing for the past 2 or 3 days and became significantly worse this morning. He reports shortness of breath mainly with exertion and he says now even with very light exertion. He reports feeling generalized
fatigue/weakness. Apparently he has had some low oxygen levels, elevated heart rate and low blood pressure at home. brought him to the emergency room to be assessed. He denies any chest pain. He denies any recent coughing or fever. He has
had some increasing swelling in both legs over the past week or so. He denies any known cardiac history. He was recently admitted for symptomatic anemia requiring transfusion.
Past History
Past History
ED Past Medical History: HTN, Seizures (Pt had ONE seizure years ago and found to be significantly hyponatremic. Takes Na tablets daily and is water restricted since.), Hypothyroidism and Other (bullous pemphigous.)
ED Past Surgical History: Tonsilectomy
Social History
Tobacco: Former smoker
Alcohol: Occasional
Drug: None
Personal:
Living: with family
Employment: Retired
Family History
Family History: Other (Noncontributory)
Review of Systems
Review of Systems
All Other Systems: ROS reviewed and negative except as documented in HPI and ROS
Constitutional: Reports fatigue; Denies fever or chills
EENT: Denies sore throat or runny nose
Respiratory: Reports trouble breathing; Denies cough
Cardiac: Denies chest pain or palpitations
ABD/GI: Denies abdominal pain, nausea or diarrhea
: Denies flank pain
Musculoskeletal: Reports edema; Denies neck pain or back pain
Neurological: Denies dizzy, headache, weakness or numbness
Phy Exam
Physical Exam
Physical Exam:
Vital signs: Hypotensive, tachycardic, tachypneic, hypoxic to 90% requiring 2 L nasal cannula; afebrile
General: Awake, alert, oriented x3; no acute distress
Head: Normocephalic, atraumatic
Eyes: Conjunctiva normal, EOMI
Throat: Airway intact, handling secretions
Neck: Trachea midline, no JVD
Lungs: Clear to auscultation bilaterally, no wheezing, rales, rhonchi; some tachypnea and tachycardia
Heart: Regular rate and rhythm, no murmurs, gallops, or rubs
Abd: Soft, non distended, nontender
Neuro: Cranial nerves grossly intact, speech fluid
Skin: no rash
Extremities: +2 pitting edema in the lower extremities bilaterally; distal extremities are warm and well-perfused
Scores
Heart Failure Risk
Heart Failure Risk Score: Not Applicable
Heart Score for Chest Pain Patients
STEMI patient?: Not applicable
Withdrawal Assessment of Alcohol
Withdrawal Assessment Completed?: Not applicable
Course
Orders/Labs/Results
Orders:
Orders
01/01/24 14:23
Electrocardiogram (*1) Urgent
Reason for Study: Shortness of Breath
EKG- Treatment ONCE
01/01/24 14:38
Urinalysis Reflex To Culture Urgent
CR Chest Portable - 1 View Urgent
Comment:
Reason For Exam: sob
Reason Study Needs to be Portable: Unable to Transport
01/01/24 14:51
Type+Screen Urgent
COVID-19 Antigen Urgent
Source: Nasal Swab
Complete Blood Count/With Diff Urgent
Comprehensive Metabolic Panel Urgent
Lactate Level [Lactic Acid] Urgent
NT-proBNP Urgent
Procalcitonin Urgent
PCT Algorithmm Indication: Respiratory
Troponin I Urgent
Blood Culture Q30M
TERRELL Source: Blood/Venous
Specimen Description:
Influenza A+B Rapid Molecular Urgent
TERRELL Source: Nasal Swab
Specimen Description:
01/01/24 15:17
0.9% Sodium Chloride 1000 ml [Nss] 1,000 ml IV BOLUS
01/01/24 15:32
Echo 2D MMode Color/Doppler Urgent
Reason for Study: shortness of breath, LE edema
CARDIOLOGY CONSULT Urgent
Consulting Provider: Jules Andino
Was physician already notified: Yes
01/01/24 15:37
Vancomycin [Vancocin] 2,000 mg 0.9% Sodium Chloride 500 ml [Nss] 500 ml IV NOW
01/01/24 15:38
0.9% Sodium Chloride 250 ml [Nss] 250 ml IV BOLUS
Cefepime HCl [Maxipime] 2,000 mg IV NOW STA
Sterile Water [Sterile Water For Injection] 10 ml IV NOW STA
01/01/24 16:02
Blood Culture Q30M
TERRELL Source: Blood/Venous
Specimen Description:
01/01/24 16:34
Urine Sodium Urgent
0.9% Sodium Chloride 500 ml [Nss] 500 ml IV BOLUS
01/01/24 16:35
Osmolality, Random Urine Urgent
Abnormal Lab Results
01/01/24
14:51
WBC 11.5 H 10^3/uL
(4.8-10.8)
RBC 2.05 L 10^6/uL
(4.70-6.10)
Hgb 7.0 L g/dL
(13.0-18.0)
Hct 21.0 L %
(39.0-52.0)
MCV 102.4 H fL
(80.0-94.0)
MCH 34.1 H pg
(27.0-31.0)
RDW 14.7 H %
(11.5-14.5)
Abs Immat Gran (auto) 0.6 H 10^3/uL
(0-0.05)
Absolute Neuts (auto) 10.7 H 10^3/uL
(1.4-6.5)
Absolute Lymphs (auto) 0.1 L 10^3/uL
(1.2-3.4)
Immature Gran % 5.6 H %
(0-0.5)
Neutrophils % 92.7 H %
(42.2-75.2)
Lymphocytes % 0.6 L %
(20.5-51.1)
Monocytes % 1.0 L %
(1.7-9.3)
Sodium 123 L mmol/L
(135-145)
Chloride 91 L mmol/L
(98-107)
Carbon Dioxide 20 L mmol/L
(22-30)
BUN 33 H mg/dl
(9-20)
Glucose 172 H mg/dl
(70-99)
Lactic Acid 4.9 H* mmol/L
(0.7-2.0)
Calcium 7.9 L mg/dl
(8.4-10.2)
Total Bilirubin 1.7 H mg/dl
(0.2-1.3)
Troponin I 0.040 H* ng/ml
Total Protein 4.9 L g/dl
(6.3-8.2)
Albumin 3.0 L g/dl
(3.5-5.0)
Procalcitonin 0.56 H ng/ml
(0.0-0.25)
Antibody Screen Positive A
(Negative)
01/01/24 14:51
01/01/24 14:51
Vital Signs
Initial and Last Documented VS:
Initial Vital Signs
Temp Pulse Resp BP Pulse Ox
36.7 C 110 26 92/56 94
01/01/24 14:19 01/01/24 14:19 01/01/24 14:19 01/01/24 14:19 01/01/24 14:19
Last Documented Vital Signs
Temp Pulse Resp BP Pulse Ox
36.7 C 86 28 96/61 95
01/01/24 14:19 01/01/24 16:00 01/01/24 16:00 01/01/24 15:00 01/01/24 16:00
MDM/Problems Addressed
Differential Diagnosis Includes:
Pneumonia, pulmonary edema/CHF, symptomatic anemia, pulmonary embolism
MDM/Problems Addressed:
78-year-old male presents to the emergency room for progressive shortness of breath particular with exertion and abnormal vital signs as above. He did have a recent admission for symptomatic anemia earlier this year. He arrives hypotensive,
tachycardic, tachypneic, hypoxic. He is on 2 L nasal cannula. Physical exam as above. His EKG shows sinus tachycardia. Plan to place an IV check labs including a CBC and a CMP, lactate, blood cultures. Will send a type and screen. Send viral
swabs. Will check troponin, BNP. Will send procalcitonin. Check a stat chest x-ray. Will provide some very gentle IV fluids at least to start. Monitor closely reassess after the above.
Labs reviewed: CBC shows leukocytosis to 11.5 which appears to be chronic. He has a hemoglobin of 7 which is decreased from a prior value of 8.2 but above transfusion threshold�patient has positive antibody screen required send out to blood bank
for transfusion and so we will hold on ED transfusion for now with hemoglobin greater than 7. His CMP shows hyponatremia to 123 with a glucose of 172. His lactate came back significantly elevated at 4.9. Troponin and BNP pending. Viral swabs
negative. Chest x-ray shows interstitial pneumonia versus interstitial edema. With hypotension and elevated lactate in the setting of possible pneumonia, aggressive fluid resuscitation would be appropriate but clinical concern that this could
actually be new onset CHF despite his lack of cardiac history given that he has no fever, no significant leukocytosis, and increased edema in both legs. Hold fluids for now; discussed with cardiology to perform stat echo in the emergency room to
better assess. Procalcitonin is pending. Will cover with broad-spectrum antibiotics upfront vancomycin and cefepime. Continue to monitor quite closely with the plan for admission pending additional assessment.
Echocardiogram preliminary read: Normal ejection fraction 55%, mild MR, moderate aortic regurgitation. Clinical reassessment after 250 cc of IV fluid patient's heart rate seems to be improving, blood pressure slightly improved will proceed with
additional IV gentle IV fluids�given clinical exam concerning for at least some degree of volume overload we will hold on vigorous resuscitation with 30 cc/kg bolus in favor of more gentle resuscitation. Patient's proBNP is elevated at 2000 but
procalcitonin is also elevated at 0.56 making infection more likely. Already covered with IV antibiotics. Will admit for continued management�case discussed with hospitalist for admission.
Chronic conditions affecting care:
Immune hemolytic anemia
*Radiology
Radiology exam reviewed: preliminary read by ED provider and radiology read reviewed
*Pulse Oximetry
Patient hypoxic: yes
*EKG
Interpreted by ED Provider?: Yes
Heart Rate: 107
Rate: tachycardiac
Rhythm: sinus and PAC's
Interval: normal interval
QRS Pattern: normal QRS
Ischemia: non-specific ST changes
*Critical Care Note
Total Time (30-74mins, 75-104mins- exclusive of procedures): 36
comment:
Critical care statement: A total of 36 minutes of critical care time was provided for this patient. This includes management of unstable vital signs, evaluation of the patient at bedside, frequent reassessment, discussion with
consultants/hospitalist, and review of pertinent medical records. This time was separate from time utilized to perform any aforementioned documented procedures
Data Reviewed
Review of Other/Old Records Reveals: Labs, Records, Radiology Studies and Discharge Summary
Source: patient, records and spouse
Prescriptions/Medications Considered But Not Given:
Considered blood transfusion as above
Patient Management
Discussion with other providers: Hospitalist (Discussed with hospitalist) and Vortex Operator (Discussed with detonator assembler)
Escalation/DeEscalation of care consider admission/obs:
Admission indicated
ED Attending Note
-
Portions of this chart may have been created with voice recognition software.� Occasional wrong word or��sound alike� substitutions may have occurred due to the inherent limitations of voice recognition software.
Discharge Plan
Departure
Patient Disposition: Admit
Date of Disposition: 01/01/24
Time of Disposition: 16:35
Admit to doctor: Jose
Presentation/result/management discussed w/ accepting MD/DO: Hospitalist
Discharge Problem:
Acute on chronic anemia, Acute hypoxemic respiratory failure, Pneumonia
Prescriptions:
No Action
levothyroxine 75 MCG tablet
75 mcg PO DAILY AT 0700
folic acid 1 mg tablet
1 mg PO DAILY
sodium chloride 1,000 mg Tablet,Soluble
1,000 mg PO BID
polyethylene glycol 3350 [HealthyLax] 17 gram powder in packet
17 g PO DAILY
cholecalciferol (vitamin D3) 25 mcg (1,000 unit) tablet
25 mcg PO DAILY
atorvastatin 40 mg Tablet
40 mg PO QPM Qty: 30 0RF
cyanocobalamin (vitamin B-12) 1,000 mcg Tablet
1,000 mcg PO DAILY Qty: 30 0RF
aspirin 81 mg Tablet,Delayed Release (Dr/Ec)
81 mg PO DAILY Qty: 30 0RF
pantoprazole 40 mg Tablet,Delayed Release (Dr/Ec)
40 mg PO DAILY Qty: 30 0RF
prednisone 20 mg Tablet
60 mg PO DAILY
furosemide 20 mg tablet
20 mg PO BID AT 0800,1600
metoprolol succinate 25 mg tablet extended release 24 hr
25 mg PO BID
urea 15 gram powder in packet
1 packet PO BID
Referrals:
Santiago Garvin DO [Family Provider] -
Interventions
Interventions:
*Risk Screen - Suicide Last Done: 01/01/24 14:39
*General Assessment Last Done: 01/01/24 15:00
*Neglect/Abuse Screening Last Done: 01/01/24 14:39
ED- Fall Risk Assessment Last Done: 01/01/24 14:39
*ED COVID-19 Vaccine History Last Done: 01/01/24 14:39
ED- Cardiac Assessment Last Done: 01/01/24 14:41
ED- Neurological Assessment Last Done: 01/01/24 14:42
ED- Pulmonary Assessment Last Done: 01/01/24 14:42
Discharge Date and Time
Print Language: ARGENTINE
[2024-01-01] MEDS: NSS 250 IV (15:46)
[2024-01-01] MEDS: MAXIPIME 2000 MG IV (15:46)
[2024-01-01] MEDS: STERILE WATER FOR INJECTION 10 ML IV (15:51)
[2024-01-01] MEDS: VANCOCIN 540 MG IV (16:06)
--- NOTE | 2024-01-01 17:18 | HPS.HSE ---
Family Physician
-
Family Physician: Santiago Garvin
Chief Complaint
-
shortness of breath
History of Present Illness
78-year-old male past medical history of SVT, hypertension, recurrent left pleural effusion, chronic SIADH,, hyponatremia associated seizure, hypothyroidism, warm antibody autoimmune hemolytic anemia, bullous pemphigoid, CVA, BPH, diverticulosis,
chronic multilevel vertebral body endplate fractures, fatty liver, chronic leg edema, who presents to the emergency room for evaluation of weakness and shortness of breath for the past 2 to 3 days. Shortness of breath occurs with exertion. He has
had low oxygen levels, elevated heart rate and low blood pressure at home. He denies chest pain. Denies any cough or fever. He has had some increased swelling in both legs over the past week. Weight has been stable.
Patient was recently admitted last month for autoimmune hemolytic anemia. He was treated with steroids with plan for outpatient Rituxan. He received 2 units of blood transfusion. He also received Samsca for hyponatremia and was started on Lasix.
Patient did complete Rituxan last month.
Medical History
Past Medical History
Past Medical History: Reports Other ( SVT, hypertension, recurrent left pleural effusion, chronic SIADH,, hyponatremia associated seizure, hypothyroidism, warm antibody autoimmune hemolytic anemia, bullous pemphigoid, CVA, BPH, diverticulosis,
chronic multilevel vertebral body endplate fractures, fatty liver, chronic leg edema)
Past Surgical History: Reports None
Social History
Tobacco: Non-smoker
Alcohol: None
Drug: None
Family History
Family History: Not pertinent
Allergies / Home Medications
Allergies reflects when Allergies were last updated in [facility].
Home Medications with original date entered in [facility]
Allergy/Medication List:
Allergies
Allergy/AdvReac Type Severity Reaction Status Date / Time
amlodipine Allergy pt states Verified 01/01/24 14:19
it caused
his sodium
level to
be low
Home Medications
levothyroxine 75 mcg tablet 75 mcg PO DAILY AT 0700 Thyroid 12/03/18
folic acid 1 mg tablet 1 mg PO DAILY Supplement 09/26/23
polyethylene glycol 3350 17 gram oral powder packet (HealthyLax) 17 g PO DAILY 10/17/23
sodium chloride 1,000 mg soluble tablet 1,000 mg PO BID Electrolyte Repletion 10/17/23
cholecalciferol (vitamin D3) 25 mcg (1,000 unit) tablet 25 mcg PO DAILY Supplement 10/30/23
aspirin 81 mg tablet,delayed release 81 mg PO DAILY Blood clot prevention/tx #30 tabs 11/03/23
atorvastatin 40 mg tablet 40 mg PO QPM High cholesterol #30 tabs 11/03/23
cyanocobalamin (vitamin B-12) 1,000 mcg tablet 1,000 mcg PO DAILY Supplement #30 tabs 11/03/23
pantoprazole 40 mg tablet,delayed release 40 mg PO DAILY Gastrointestinal issue #30 tabs 11/03/23
furosemide 20 mg tablet 20 mg PO BID AT 0800,1600 hyponatremia 01/01/24
metoprolol succinate 25 mg tablet,extended release 24 hr 25 mg PO BID Heart disease/condition 01/01/24
prednisone 20 mg tablet 60 mg PO DAILY 01/01/24
urea 15 gram oral powder packet 1 packet PO BID Electrolyte Repletion 01/01/24
Review of Systems
-
History Source: Patient
A 12 point ROS was completed and negative except as noted: Yes
Constitutional: Reports No Symptoms
EENT: Reports No Symptoms
Respiratory: Reports See HPI
Cardiac: Reports No Symptoms
Abdomen/GI: Reports No Symptoms
: Reports No Symptoms
Musculoskeletal: Reports No Symptoms
Skin: Reports No Symptoms
Neurological: Reports No Symptoms
Endocrine: Reports No Symptoms
Hematologic/Lymphatic: Reports No Symptoms
Psych: Reports No Symptoms
Physical Exam
Vital Signs
Vital Signs
Temp Pulse Resp BP Pulse Ox
98.1 F 80 19 101/79 96
01/01/24 14:19 01/01/24 16:30 01/01/24 16:30 01/01/24 16:26 01/01/24 16:30
Physical Exam
General: Well Developed, Well Nourished and No Apparent Distress
HEENT: NormoCephalic, Moist mucous membranes and Atraumatic
Respiratory: Clear
Cardiac: S1/S2 and Regular Rhythm; No Murmur or Rub
GI: Soft, Non Tender, Non Distended and Normal Bowel Sounds; No Organomegaly
Rectal: Deferred by Provider
Musculoskeletal: No Clubbing, No Cyanosis, Edema, Left Lower Extremity, Edema, Right Lower Extremity and No Edema
Skin: No Rash
Neuro: Nonfocal/grossly intact
Laboratory Results
-
01/01/24 14:51
01/01/24 14:51
Laboratory Results
Lactic Acid 4.9 mmol/L (0.7-2.0) H* 01/01/24 14:51
Total Bilirubin 1.7 mg/dl (0.2-1.3) H 01/01/24 14:51
AST 35 U/L (17-59) 01/01/24 14:51
ALT 36 U/L (0-50) 01/01/24 14:51
Alkaline Phosphatase 87 U/L (38-126) 01/01/24 14:51
Troponin I 0.040 ng/ml H* 01/01/24 14:51
Data Reviewed
-
Lab Data: Labs Reviewed by me
Old Records: Reviewed
Impression/Plan
-
IMPRESSION:
PLAN:
# Sepsis (leukocytosis, tachycardia) secondary to interstitial pneumonia in the setting of immunocompromise status from recent Rituxan
-COVID-negative, influenza negative
-Pro-Tay elevated 0.56
-Cardiac BNP of 2100
-Lactic acid 4.9
-ER initially concerned for heart failure and cardiology consulted however presentation more consistent with pneumonia
-Check blood cultures
-Check Legionella, strep antigen,
-IV fluids
-Vancomycin/Zosyn
# Increased lower extremity edema from steroids versus heart failure
-Possible component of heart failure as well
-May require diuresis after fluid resuscitation and improvement of pneumonia
#Warm antibody autoimmune hemolytic anemia
-Hemoglobin of 7, trending down from 8.6 on prior admission for hemolytic anemia
-Continue prednisone
-Blood consent obtained
-Type and screen
-Ordered 1 unit of blood which will take time as patient has antibodies
# Worsening of chronic hyponatremia secondary to SIADH
-Urine sodium, osmolality pending
-Observe with IV fluids, likely require further Lasix afterwards
-Continue sodium tablets, urea
History of SVT
-Continue metoprolol
Mild to moderate aortic regurgitation
Essential hypertension
Recurrent left pleural effusion
History of hyponatremia associated seizure
Hypothyroidism
-Continue levothyroxine
Bullous pemphigoid
History of CVA
-Continue statin
BPH
Diverticulosis
Chronic multilevel vertebral body endplate fractures
History of fatty liver
DNR/DNI
DVT prophylaxis�heparin
Cardiac diet
[2024-01-01 17:39] LABS: Urine Albumin Trace (Neg - Trace); Urine Bilirubin Negative (Negative); Urine Character Clear (Clear); Urine Color Yellow; Urine Glucose Negative (Negative); Urine Ketone Negative (Negative); Urine Leukocyte Negative (Negative); Urine Nitrite Negative (Negative); Urine Occult Blood Negative (Negative); Urine Urobilinogen Negative (Neg - 1+)
[2024-01-01] MEDS: NSS 500 IV (18:15)
--- NOTE | 2024-01-01 19:45 | PTCARENOTE ---
Pt arrived to room 421-01. Pt did a stand/pivot from stretcher to bed with x1 assistance. Pt AAOx3, VSS. Pt in no signs of acute distress, respirations regular. Pt on 2LO2. Pt oriented to room, call ehnderson placed within reach.
--- NOTE | 2024-01-01 19:54 | PHA.VAN.IN ---
Assessment
- Assessment
Renal Function: Appears similar to baseline
Concomitant Antimicrobials: ZOSYN
- Previous Dosing Experience
Previous Regimen: NONE
AUC Dosing Plan
- Dosing Variables
Dosing Weight (kg): 84
Dosing CrCl (ml/min): 76
Vd coefficient (L/kg): 0.7
- Empiric Dosing
Initial / Loading Dose: 2GM
Maintenance Regimen: 1GM IV Q12H
Estimated AUC (mcg*h/mL): 521
Estimated Peak (mcg*h/mL): 30.6
Estimated Trough (mcg/ml): 14.6
Estimated Half Life (H): 10.3
Pharmacokinetics Vancomycin I
- -
Patient Age: 78
Patient Sex: Male
Vancomycin Day #: 1
Indication: Pulmonary/Respiratory (SEPSIS)
Requesting Provider: HANNAH
Height / Weight:
Height 5 ft 9 in
Actual Weight 84.005 kg
Pertinent Past Medical History: AUTO-IMMUNE HEMOLYTIC ANEMIA - CHRONIC STERIODS
- Vital Signs / Lab Results
Temp Pulse Resp BP Pulse Ox
97.7 F 81 18 97/59 94
01/01/24 19:33 01/01/24 19:33 01/01/24 19:33 01/01/24 19:33 01/01/24 19:33
Lab Results - Hematology
01/01/24
14:51
WBC 11.5 H
Lab Results - Chemistry
01/01/24
14:51
BUN 33 H
Creatinine 0.8
Estimated Creat Clear 76
Albumin 3.0 L
01/01/24
14:51
Lactic Acid 4.9 H*
Lab Results - Urine
01/01/24
17:25
Urine Nitrite (Reflex) Negative
Leukocyte Esterase Rfl Negative
Microbiology Results
01/01/24 17:25 Legionella Urinary Antigen - Final
Urine Negative for Legionella pneumophila Serogroup 1 antigen.
A negative result does not rule out the possiblity of
Legionella infection due to other serogroups or species of
Legionella. Clinical correlation is recommended.
Streptococcus pneumoniae Antigen (M - Final
Negative for Streptococcus pneumoniae antigen.
A negative result does not exclude infection with
Streptococcus pneumoniae. Clinical correlation is
recommended.
01/01/24 14:51 Influenza Types A & B (ORLY) - Final
Nasal Swab Negative for Influenza A & B, NAAT
Negative results must be combined with clinical observations
and patient history.
Nucleic Acid Amplification test (NAAT)performed on the
[employer] platform.
[2024-01-01] MEDS: NSS 1000 IV (20:10)
[2024-01-01 20:29] LABS: Lactic Acid 1.6 mmol/L (0.7-2.0)
[2024-01-01 22:07] LABS: Osmolality Urine 422 mOsm/kg (300-900)
[2024-01-01] MEDS: HEPARIN 5000 UNITS SC (22:13)
[2024-01-01] MEDS: SODIUM CHLORIDE 1 GRAM PO (22:13)
[2024-01-01] MEDS: LIPITOR 40 MG PO (22:13)
[2024-01-01] MEDS: TOPROL XL 25 MG PO (22:13)
[2024-01-01] MEDS: URE-NA 15 GRAMS PO (22:15)
[2024-01-01] MEDS: ZOSYN 50 IV (22:15)
[2024-01-01 22:23] LABS: Urine Sodium 46 mmol/L (30-90)
[2024-01-02] MEDS: ZOSYN 50 IV ×4 (03:09→21:45)
[2024-01-02] MEDS: VANCOCIN 200 IV ×2 (05:32→18:10)
[2024-01-02] MEDS: NSS 1000 IV (05:32)
[2024-01-02] MEDS: SYNTHROID 75 MCG PO (05:32)
[2024-01-02 07:30] VITALS: BP 125/65
[2024-01-02 07:42] LABS: % Basophils 0.3 % (0-2); % Eosinophils 0.3 % (0-6); % Immature Granulocytes 3.8 % (0-0.5); % Lymphocytes 3.2 % (20.5-51.1); % Monocytes 1.9 % (1.7-9.3); % Neutrophils 90.5 % (42.2-75.2); Absolute Immature Granulocytes 0.3 10^3/uL (0-0.05); Absolute Lymphocytes 0.2 10^3/uL (1.2-3.4); Absolute Monocytes 0.1 10^3/uL (0.1-0.6); Absolute Neutrophils 6.6 10^3/uL (1.4-6.5); Mean Corp Hgb Conc. 31.9 g/dL (33.0-37.0); Mean Corpuscular Hgb 33.9 pg (27.0-31.0); Mean Corpuscular Volume 106.3 fL (80.0-94.0); Mean Platelet Volume 10.1 fL (7.4-10.4); Nucleated Red Blood Cells % 0 % (-); Platelet Count 187 10^3/uL (130-400); Red Blood Cell Count 1.92 10^6/uL (4.70-6.10); Red Cell Dist. Width 14.6 % (11.5-14.5); White Blood Cell Count 7.3 10^3/uL (4.8-10.8)
[2024-01-02 07:52] LABS: ALT (SGPT) 21 U/L (0-50); AST (SGOT) 32 U/L (17-59); Albumin 2.6 g/dl (3.5-5.0); Alkaline Phosphatase 70 U/L (38-126); Blood Urea Nitrogen 31 mg/dl (9-20); Calcium 7.8 mg/dl (8.4-10.2); Carbon Dioxide 20 mmol/L (22-30); Chloride 99 mmol/L (98-107); Estimated Creatinine Clearance 87 ml/min; Glucose 69 mg/dl (70-99); Potassium 3.4 mmol/L (3.5-5.1); Sodium 127 mmol/L (135-145); Total Bilirubin 1.9 mg/dl (0.2-1.3); Total Protein 4.5 g/dl (6.3-8.2); eGFR > 60.00
[2024-01-02 08:06] LABS: Hemoglobin 6.5 g/dL (13.0-18.0)
[2024-01-02 08:07] LABS: Hematocrit 20.4 % (39.0-52.0)
--- NOTE | 2024-01-02 08:40 | PHA.VAN.FU ---
Addendum entered and electronically signed by Gabriela Callejas [facility] 01/02/24 08:44:
MRSA screen ordered per protocol
Original Note:
Vancomycin Assessment / Plan
- Assessment
Renal Function: Stable
WBC's are: Trending Down
In the past 24 hrs, patient has been: Afebrile
Concomitant Antimicrobials: piperacillin/tazobactam
- Dosing Plan
Continue: Vanc 1000mg Q12H
- Monitoring Plan
No level(s) ordered at this time: consider levels in next few days
- Follow Up
Pharmacy will continue to follow.
Vancomycin Follow UP
- -
Patient Age: 78
Patient Sex: Male
Vancomycin Day #: 2
Indication: Pulmonary/Respiratory
Requesting Provider: Dr. Chapman
Pertinent Antimicrobial Allergies:
no pertinent antibiotic allergies
Height / Weight:
Height 5 ft 9 in
Actual Weight 84.005 kg
Pertinent Past Medical History: Warm antibody autoimmune hemolytic anemia (rituximab)
- Vital Signs / Lab Results
Temp Pulse Resp BP Pulse Ox
97.6 F 85 18 125/65 94
01/02/24 07:30 01/02/24 07:30 01/02/24 07:30 01/02/24 07:30 01/02/24 07:30
Lab Results - Hematology
01/01/24 01/02/24
14:51 05:48
WBC 11.5 H 7.3
Lab Results - Chemistry
01/01/24 01/02/24
14:51 05:48
BUN 33 H 31 H
Creatinine 0.8 0.7
Estimated Creat Clear 76 87
Albumin 3.0 L 2.6 L
01/01/24 01/01/24 01/02/24
14:51 20:13 01:28
Lactic Acid 4.9 H* 1.6 Cancelled
Lab Results - Urine
01/01/24
17:25
Urine Nitrite (Reflex) Negative
Leukocyte Esterase Rfl Negative
Microbiology Results
01/01/24 17:25 Legionella Urinary Antigen - Final
Urine Negative for Legionella pneumophila Serogroup 1 antigen.
A negative result does not rule out the possiblity of
Legionella infection due to other serogroups or species of
Legionella. Clinical correlation is recommended.
Streptococcus pneumoniae Antigen (M - Final
Negative for Streptococcus pneumoniae antigen.
A negative result does not exclude infection with
Streptococcus pneumoniae. Clinical correlation is
recommended.
01/01/24 14:51 Influenza Types A & B (ORLY) - Final
Nasal Swab Negative for Influenza A & B, NAAT
Negative results must be combined with clinical observations
and patient history.
Nucleic Acid Amplification test (NAAT)performed on the
[employer] platform.
--- NOTE | 2024-01-02 09:04 | CON.ONC ---
Impression
Impression
Hyperproliferative (elevated reticulocyte count) recurrent acute anemia
History of WILLEM Conner positive hemolytic anemia
SIADH/hyponatremia
Plan
Plan
Somewhat unusual case. At first glance this seems to be refractory hemolytic anemia but I am not sure why haptoglobin which was low <10 in October is now normalized. LDH is also not particularly that elevated.
At this point I will expand the differential diagnosis. Check stools for occult blood to rule out GI bleeding although no symptoms or clinical evidence otherwise to suggest. I also would consider a bone marrow aspirate and biopsy to evaluate for
possible underlying marrow disorder although that would typically lead to low reticulocyte count hypoproliferative anemia. Normal haptoglobin usually is a pretty sensitive test for determining whether or not hemolytic anemia is present and normal
haptoglobin typically means hemolysis is not present. Check urine hemosiderin. Transfuse with least incompatible blood when available from the [facility]. Continue folic acid. Continue prednisone 60 mg daily but low threshold to start to wean that
down. In addition to discussing with patient, I have also reviewed with patient's Melvina by phone.
Patient History
History of Present Illness
Family Physician: Santiago Garvin
Hearing Screen Coordinator: Dr. Nasra Rojas
CC: shortness of breath
HPI:
78-year-old male presents to the emergency room for evaluation of weakness and shortness of breath for the past 2 to 3 days. Shortness of breath occurs with exertion. He patient was diagnosed with warm WILLEM Conner positive hemolytic anemia and was
treated with steroids and Rituxan. Unfortunately he continues to have recurrent anemia with high reticulocyte count although haptoglobin has normalized suggesting a possible alternative etiology. Patient denies any change in bowel habits or stool
color including no evidence of melena or hematochezia. Stool caliber as well has been unchanged. Patient received IV Rituxan last month (planned x 4 weekly treatments were all completed 11/28).
Past-Medical/Surgical History
PMH:SVT, hypertension, recurrent left pleural effusion, chronic SIADH/hyponatremia associated seizure, hypothyroidism, warm antibody autoimmune hemolytic anemia, bullous pemphigoid, CVA, BPH, diverticulosis, chronic multilevel vertebral body
endplate fractures, fatty liver, chronic leg edema
PSH: None
Social History
Tobacco: Non-smoker
Alcohol: None
Drug: None
Family History: Not pertinent
Patient Medication
�Medication �Instructions �Recorded �Confirmed �Last Taken �Type
levothyroxine 75 mcg tablet 75 mcg PO DAILY AT 0700 Thyroid 12/03/18 01/01/24 01/01/24 History
folic acid 1 mg tablet 1 mg PO DAILY Supplement 09/26/23 01/01/24 01/01/24 History
polyethylene glycol 3350 17 gram 17 g PO DAILY constipation 10/17/23 01/01/24 Unknown History
oral powder packet (HealthyLax)
sodium chloride 1,000 mg soluble 1,000 mg PO BID Electrolyte 10/17/23 01/01/24 01/01/24 History
tablet Repletion
cholecalciferol (vitamin D3) 25 25 mcg PO DAILY Supplement 10/30/23 01/01/24 01/01/24 History
mcg (1,000 unit) tablet
aspirin 81 mg tablet,delayed 81 mg PO DAILY Blood clot 11/03/23 01/01/24 01/01/24 Rx
release prevention/tx #30 tabs
atorvastatin 40 mg tablet 40 mg PO QPM High cholesterol #30 11/03/23 01/01/24 12/31/23 Rx
tabs
cyanocobalamin (vitamin B-12) 1,000 mcg PO DAILY Supplement #30 11/03/23 01/01/24 01/01/24 Rx
1,000 mcg tablet tabs
pantoprazole 40 mg tablet,delayed 40 mg PO DAILY Gastrointestinal 11/03/23 01/01/24 01/01/24 Rx
release issue #30 tabs
furosemide 20 mg tablet 20 mg PO BID AT 0800,1600 01/01/24 01/01/24 01/01/24 History
hyponatremia
metoprolol succinate 25 mg 25 mg PO BID Heart 01/01/24 01/01/24 01/01/24 History
tablet,extended release 24 hr disease/condition
prednisone 20 mg tablet 60 mg PO DAILY Anti-Inflammatory 01/01/24 01/01/24 01/01/24 History
urea 15 gram oral powder packet 1 packet PO BID Electrolyte 01/01/24 01/01/24 01/01/24 History
Repletion
Active Medications
Generic Name Dose Route Start Last Admin
Trade Name Freq PRN Reason Stop Dose Admin
Aspirin 81 mg 01/02/24 08:00
Aspirin 81 Mg (Enteric Coated) Tablet PO 01/30/24 07:59
DAILY KAY
Atorvastatin Calcium 40 mg 01/01/24 19:28 01/01/24 22:13
Atorvastatin (Lipitor) 40 Mg Tablet PO 01/29/24 19:27 40 mg
QPM KAY Administration
Cholecalciferol 25 mcg 01/02/24 08:00
Cholecalciferol (Vitamin D3) 25 Mcg Tablet (1,000 Units) PO 01/30/24 07:59
DAILY KAY
Cyanocobalamin 1,000 mcg 01/02/24 08:00
Cyanocobalamin 1,000 Mcg Tablet PO 01/30/24 07:59
DAILY KAY
Folic Acid 1 mg 01/02/24 08:00
Folic Acid 1 Mg Tablet PO 01/30/24 07:59
DAILY KAY
Heparin Sodium 5,000 units 01/01/24 20:00 01/01/24 22:13
Heparin 5,000 Units/Ml 1 Ml Vial SC 01/29/24 19:59 5,000 units
Q12 KAY Administration
Sodium Chloride 1,000 mls @ 100 mls/hr 01/01/24 19:28 01/02/24 05:32
Nss IV 1,000 mls
.Q10H KAY Administration
Piperacillin Sod/Tazobactam Sod 3.375 gram in 50 mls @ 100 mls/hr 01/01/24 22:00 01/02/24 03:09
Zosyn IV 50 mls
Q6H KAY Administration
Vancomycin HCl 1 gram in 200 mls @ 200 mls/hr 01/02/24 06:00 01/02/24 05:32
Vancocin IV 200 mls
Q12H KAY Administration
Protocol
Levothyroxine Sodium 75 mcg 01/02/24 06:00 01/02/24 05:32
Levothyroxine 75 Mcg Tablet PO 01/30/24 05:59 75 mcg
DAILY @ 0600 KAY Administration
Metoprolol Succinate 25 mg 01/01/24 20:00 01/01/24 22:13
Metoprolol 25 Mg Extended Release Tablet PO 01/29/24 19:59 25 mg
BID KAY Administration
Pantoprazole Sodium 40 mg 01/02/24 08:00
Pantoprazole 40 Mg Delayed Release Tablet PO 01/30/24 07:59
DAILY KAY
Polyethylene Glycol 17 grams 01/02/24 08:00
Polyethylene Glycol Powder 17 Grams Packet PO 01/30/24 07:59
DAILY KAY
Prednisone 60 mg 01/02/24 08:00
Prednisone 20 Mg Tablet PO 01/30/24 07:59
DAILY KAY
Sodium Chloride 1 gram 01/01/24 20:00 01/01/24 22:13
Sodium Chloride 1 Gram Tablet PO 01/29/24 19:59 1 gram
BID KAY Administration
Sodium Chloride 0 flush 01/01/24 20:00
Sodium Chloride 0.9% (Flush) Syringe IV 01/29/24 19:59
PER PROTOCOL KAY
Urea 15 grams 01/01/24 20:00 01/01/24 22:15
Urea 15 Grams Powder Packet (Non-Form) PO 01/29/24 19:59 15 grams
BID KAY Administration
Physical Exam
-
General: Well Developed, Well Nourished and No Apparent Distress
Cardiology: Normal Sinus Rhythm, S1 and S2
Pulmonary: Clear
GI: Soft
Musculoskeletal: No Clubbing, No Cyanosis and No Edema
Extremities: No C/C/E
Neurology: Non Focal
Labs
Lab Results
WBC 7.3 10^3/uL (4.8-10.8) 01/02/24 05:48
RBC 1.92 10^6/uL (4.70-6.10) L 01/02/24 05:48
Hgb 6.5 g/dL (13.0-18.0) L* 01/02/24 05:48
Hct 20.4 % (39.0-52.0) L* 01/02/24 05:48
MCV 106.3 fL (80.0-94.0) H 01/02/24 05:48
MCH 33.9 pg (27.0-31.0) H 01/02/24 05:48
MCHC 31.9 g/dL (33.0-37.0) L 01/02/24 05:48
RDW 14.6 % (11.5-14.5) H 01/02/24 05:48
Plt Count 187 10^3/uL (130-400) 01/02/24 05:48
MPV 10.1 fL (7.4-10.4) 01/02/24 05:48
Abs Immat Gran (auto) 0.3 10^3/uL (0-0.05) H 01/02/24 05:48
Absolute Neuts (auto) 6.6 10^3/uL (1.4-6.5) H 01/02/24 05:48
Absolute Lymphs (auto) 0.2 10^3/uL (1.2-3.4) L 01/02/24 05:48
Absolute Monos (auto) 0.1 10^3/uL (0.1-0.6) 01/02/24 05:48
Absolute Eos (auto) 0.0 10^3/uL (0-0.7) 01/02/24 05:48
Absolute Basos (auto) 0.0 10^3/uL (0-0.2) 01/02/24 05:48
Immature Gran % 3.8 % (0-0.5) H 01/02/24 05:48
Neutrophils % 90.5 % (42.2-75.2) H 01/02/24 05:48
Lymphocytes % 3.2 % (20.5-51.1) L 01/02/24 05:48
Monocytes % 1.9 % (1.7-9.3) 01/02/24 05:48
Eosinophils % 0.3 % (0-6) 01/02/24 05:48
Basophils % 0.3 % (0-2) 01/02/24 05:48
Creatinine 0.7 mg/dL (0.7-1.3) 01/02/24 05:48
Vital Signs
Vital Signs
Temp Pulse Resp BP Pulse Ox
97.6 F 85 18 125/65 94
01/02/24 07:30 01/02/24 07:30 01/02/24 07:30 01/02/24 07:30 01/02/24 07:30
[2024-01-02 10:00] LABS: Reticulocyte Count 12.3 % (0.4-2.8)
[2024-01-02] MEDS: MIRALAX PO (10:28)
[2024-01-02] MEDS: PROTONIX 40 MG PO (10:29)
[2024-01-02] MEDS: VITAMIN D3 (cholecalciferol) 25 MCG PO (10:29)
[2024-01-02] MEDS: VITAMIN B-12 1000 MCG PO (10:29)
[2024-01-02] MEDS: HEPARIN 5000 UNITS SC ×2 (10:29→20:10)
[2024-01-02] MEDS: ASPIR LOW (ENTERIC COATED) 81 MG PO (10:29)
[2024-01-02] MEDS: TOPROL XL 25 MG PO ×2 (10:30→20:10)
[2024-01-02] MEDS: DELTASONE 60 MG PO (10:30)
[2024-01-02] MEDS: SODIUM CHLORIDE 1 GRAM PO ×2 (10:30→20:11)
[2024-01-02] MEDS: FOLVITE 1 MG PO (10:30)
--- NOTE | 2024-01-02 11:41 | W.PN.HOSP.TC ---
Today's Communication/Plan
-
.
Assessment / Plan
Assessment / Plan
Physical Exam
General: Well Developed, Well Nourished and No Apparent Distress
HEENT: Normocephalic, Moist mucous membranes and Atraumatic
Respiratory: some rales at bases.
Cardiac: S1/S2.
GI: Soft, Non Tender, Non Distended and Normal Bowel Sounds;
Rectal: No rectal bleeding
Musculoskeletal: No Clubbing, No Cyanosis, Edema, Left Lower Extremity, Edema, Right Lower Extremity and No Edema
Skin: No Rash
Neuro: Nonfocal/grossly intact
Psych: no agitation, calm.
# History of WILLEM Conner positive hemolytic anemia
By reviewing his blood work. Normal haptoglobin early December, possible underlying other problem?.
Elevated reticulocyte count
Repeat haptoglobin
Consulted hematology, appreciate input.
Transfusion with
least incompatible blood from [facility]
Continue folic acid
Continue prednisone
Appreciate hematology input
# Sepsis (leukocytosis, tachycardia, borderline hypoxic, weakness) secondary to interstitial pneumonia in the setting of immunocompromise status from recent Rituxan
Acute hypoxic respiratory insufficiency with oxygen 91% on room air and history of shortness of breath
-COVID-negative, influenza negative
-Pro-Tay elevated 0.56
-Cardiac BNP of 2100
-Lactic acid 4.9
Mildly elevated procalcitonin
Chest radiography showing interstitial pneumonia
Currently, patient is feeling better. No significant cough
Oxygen saturation 94% on 2 L oxygen
Continue prednisone. Continue empiric antibiotics. MRSA screen is positive
-Follow with the blood cultures
Appreciate pulmonary input
# Increased lower extremity edema from steroids versus heart failure
Acute on chronic heart failure with a preserved ejection fraction.
Echocardiogram showed LVEF 60 to 65%, mild LVH, stage II diastolic dysfunction. Mild MR, moderate aortic regurgitation, mild tricuspid regurgitation. Comparison to previous echocardiogram in October 2023, no significant change.
Elevated proBNP
Start the patient on Lasix 40 mg daily
Appreciate cardiology input
# Hypokalemia, replaced
# Hyponatremia, History of hyponatremia associated seizure
Sodium 127 which is similar to previous blood work
No confusion
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 Continue sodium tablets and urea with the fluid restriction.
#History of SVT
-Continue metoprolol
Mild to moderate aortic regurgitation
Essential hypertension
Recurrent left pleural effusion
Hypothyroidism
-Continue levothyroxine
Bullous pemphigoid
History of CVA
-Continue statin
BPH
Diverticulosis
Chronic multilevel vertebral body endplate fractures
History of fatty liver
DNR/DNI
DVT prophylaxis�heparin
Cardiac diet
Total time spent to see the patient, examine the patient, review data and lab results, discuss treatment plan with patient, nursing staff around 55 minutes
Anticipated Discharge: > 48 hours
Subjective/Interval History
-
Date of Service: January 02, 2024
He feels better. Less shortness of breath. He has not moved to note his weakness
No fevers
Objective Data
-
Labs:
Laboratory Results
01/02/24 01/02/24
05:48 09:37
WBC 7.3
Hgb 6.5 L*
Hct 20.4 L*
Plt Count 187
Sodium 127 L
Potassium 3.4 L
Chloride 99
Carbon Dioxide 20 L
BUN 31 H
Creatinine 0.7
Glucose 69 L
Calcium 7.8 L
Total Bilirubin 1.9 H Pending
AST 32
ALT 21
Alkaline Phosphatase 70
Vital Signs:
Vital Signs
Temp Pulse Resp BP Pulse Ox
97.6 F 85 18 125/65 94
01/02/24 07:30 01/02/24 07:30 01/02/24 07:30 01/02/24 07:30 01/02/24 07:30
I&O
01/01/24 01/02/24 01/03/24
06:59 06:59 06:59
Output Total 1300 / 1300
Balance -1300 / -1300
--- NOTE | 2024-01-02 12:07 | CM ---
Patient seen bedside.
Dx pneumonia/sepsis
IA completed.
Patient lives with spouse in a 2 story home with 2 steps to enter.
Patient ambulates without assistive devices, drives.
Patient has not had VN, or been in skilled rehab in the past.
Patient Independent prior to admission.
Denies home care needs at this time.
Currently on oxygen and IV anbx.
PCP: Dr Garvin
Pharmacy: [facility]
Plan: home no needs anticipated.
--- NOTE | 2024-01-02 12:15 | CON.CAR ---
Addendum entered and electronically signed by Nolberto Driver MD 01/02/24 16:00:
I saw and examined the patient.
The Documentation Nurse's note was reviewed and I agree with the note.
Comment: Briefly, 78-year-old man past medical history of hemolytic anemia and recent admission for anemia who presents with worsening dyspnea and was admitted for sepsis secondary to pneumonia. He is undergoing treatment with IV antibiotics and IV
fluids.
Cardiology is consulted for evaluation of possible heart failure.
He does have significant lower extremity edema on exam
BNP is mildly elevated at 2100
Transthoracic echocardiogram reviewed, technically difficult study but overall preserved left ventricular ejection fraction
Would likely benefit from gentle IV diuresis
Follow renal function and daily weights closely
Wean oxygen as able
Original Note:
Consultation
Consultation Request
Date/Time Consultation Requested: 01/01/24 at 1532
Date/Time Consultation Performed: 01/02/24 at 1200
Requesting Provider: Dr. Watson
Performing Provider: Dr. Driver
Reason for Consultation: Elevated BNP
Medical History
-
History of Present Illness:
Patient came to [facility] with increased SOB and was admitted with PNA, cardiology is consutled for possible acute HF. Patient noticed JOHNSON and came to [facility] and is admitted with sepsis and PNA. Patient with h/o HFpEF during 10/2023 admission. Patient takes
Lasix 20 mg PO BID and no missed doses recently. He thinks his LE edema is chronic. No orthopnea or PND. No bloating. pro-BNP was 2100 in the ER. Patient was given IVFs for sepsis. Initial Troponin in the ER was 0.04, but he denies chest pain.
PMH:
Chronic Conner positive hemolytic anemia
Hyponatremia/SIADH
HTN
Recurrent left pleural effusion
h/o CVA 10/2023
Hypothyroidism
h/o Bullous Pemphigoid
Tricuspid regurgitation, Mild to moderate on echo 09/2023
Aortic regurgitation, �Mild to moderate on echo 09/2023
Mitral valve prolapse, mild bileaflet w/o significant regurgitation on echo 09/2023
Chronic Hypotension
h/o seizures x1 secondary to hyponatremia
Chronic Lower Extremity Edema
Past Medical History
Past Medical History: Other (in HPI)
Past Surgical History: Other (thoracentesis and polypectomy)
Social History
Tobacco: Non-Smoker
Alcohol: None
Drug: None
Personal:
Living: With Family (he and his have lived in [facility] for 60 years)
Family History
Family History: Cancer
Allergies / Home Medications
Allergy/AdvReac Type Severity Reaction Status Date / Time
amlodipine Allergy pt states Verified 01/01/24 14:19
it caused
his sodium
level to
be low
�Medication �Instructions �Recorded �Confirmed �Type
levothyroxine 75 mcg tablet 75 mcg PO DAILY AT 0700 Thyroid 12/03/18 01/01/24 History
folic acid 1 mg tablet 1 mg PO DAILY Supplement 09/26/23 01/01/24 History
polyethylene glycol 3350 17 gram 17 g PO DAILY constipation 10/17/23 01/01/24 History
oral powder packet (HealthyLax)
sodium chloride 1,000 mg soluble 1,000 mg PO BID Electrolyte 10/17/23 01/01/24 History
tablet Repletion
cholecalciferol (vitamin D3) 25 25 mcg PO DAILY Supplement 10/30/23 01/01/24 History
mcg (1,000 unit) tablet
aspirin 81 mg tablet,delayed 81 mg PO DAILY Blood clot 11/03/23 01/01/24 Rx
release prevention/tx #30 tabs
atorvastatin 40 mg tablet 40 mg PO QPM High cholesterol #30 11/03/23 01/01/24 Rx
tabs
cyanocobalamin (vitamin B-12) 1,000 mcg PO DAILY Supplement #30 11/03/23 01/01/24 Rx
1,000 mcg tablet tabs
pantoprazole 40 mg tablet,delayed 40 mg PO DAILY Gastrointestinal 11/03/23 01/01/24 Rx
release issue #30 tabs
furosemide 20 mg tablet 20 mg PO BID AT 0800,1600 01/01/24 01/01/24 History
hyponatremia
metoprolol succinate 25 mg 25 mg PO BID Heart 01/01/24 01/01/24 History
tablet,extended release 24 hr disease/condition
prednisone 20 mg tablet 60 mg PO DAILY Anti-Inflammatory 01/01/24 01/01/24 History
urea 15 gram oral powder packet 1 packet PO BID Electrolyte 01/01/24 01/01/24 History
Repletion
Review of Systems
-
History Source: Patient and Family ( sitting bedside)
All other systems: Negative unless noted
Physical Exam
Vital Signs
Temp Pulse Resp BP Pulse Ox
97.6 F 85 18 125/65 94
01/02/24 07:30 01/02/24 07:30 01/02/24 07:30 01/02/24 07:30 01/02/24 07:30
GEN: NAD. AAOx3
HEENT: EOMI, MMM
LUNGS: CTA B/L, no wheezes/rales
CV: Reg, S1/S2, 1/6 syst LSB
ABD: soft, BS+, NT/ND
EXT: +1 pitting B/L LE edema
NEURO: Gross non-focal
SKIN: Warm, dry and pink. No rash
Lab Results
01/02/24 05:48
01/02/24 05:48
Troponin I 0.040 ng/ml H* 01/01/24 14:51
Xad-D-Gsezrckgoai Pept 2150 pg/ml 01/01/24 14:51
Impression / Plan
-
PCP: Santiago Garvin
Configuration Management Architect: Dr. Wade
Impression:
Sepsis
PNA
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
Acute HFpEF
Hyponatremia/SIADH
Hypokalemia
HTN
Recurrent left pleural effusion
h/o CVA 10/2023
Hypothyroidism
h/o Bullous Pemphigoid
Tricuspid regurgitation, Mild to moderate on echo 09/2023
Aortic regurgitation, �Mild to moderate on echo 09/2023
Mitral valve prolapse, mild bileaflet w/o significant regurgitation on echo 09/2023
Chronic Hypotension
h/o seizures x1 secondary to hyponatremia
Chronic Lower Extremity Edema
Echo 09/27/2023: EF 55-60%, mild bileaflet prolapse w/ trace MR, mild-mod AI. Mild-mod TR w/ RVSP 26 mmHg
Echo 10/19/2023: EF 55-60%. Bileaflet mitral valve prolapse with mild mitral regurgitation. Mild to moderate aortic regurgitation. Small pericardial effusion with no hemodynamic compromise. Normal size right atrium normal size left atrium. There
is no cardiac embolic source seen within the limitations of transthoracic echocardiographic imaging.
Echo 01/01/24: EF 60-65%, mild conc LVH, stage II diastolic dysfunction, mild MR mod AR, mild TR
Plan:
-Patient came to [facility] with increased SOB and was admitted with PNA, cardiology is consutled for possible acute HF. Patient noticed JOHNSON and came to [facility] and is admitted with sepsis and PNA. Patient with h/o HFpEF during 10/2023 admission. Patient
takes Lasix 20 mg PO BID and no missed doses recently. He thinks his LE edema is chronic. No orthopnea or PND. No bloating. pro-BNP was 2100 in the ER. Patient was given IVFs for sepsis. Initial Troponin in the ER was 0.04, but he denies chest pain.
-Agree with stopping IVFs.
-Patient with stable LE edema, but increased pro-BNP and acute on chronic hyponatremia. Agree with Lasix 40 mg IV daily. Also think a dose of Lasix 40 mg IV x1 in-between units of blood will help.
-During last admission 10/2023 patient had a left occipital CVA with B/L watershed distribution infarcts. Outpatient 2 week monitor did not show Afib. Patient declined Linq. He is not anticoagulated due to lack of Afib/flutter. Patient also has a h/o
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
-Follow on tele. Patient with h/o bradycardia and Atach. Previously on higher dose Toprol XL 50 mg BID, but dose lowered to 25 mg BID after syncope 10/2023. ECG reviewed by me from yesterday shows sinus tachycardia with PACs.
-Hyponatremia is chronic. Patient takes urea and salt tabs
-Potassium being supplemented PO
[2024-01-02] MEDS: URE-NA 15 GRAMS PO ×2 (12:21→20:10)
[2024-01-02 15:00] VITALS: BP 101/64
[2024-01-02 17:51] LABS: Direct Bilirubin 0.3 mg/dl (0.0-0.4); LDH 457 U/L (120-246)
--- NOTE | 2024-01-02 18:10 | CON.PUL ---
Consultation
Consultation Request
Date/Time Consultation Requested: 01/01
Date/Time Consultation Performed: 01/01
Reason for Consultation: Shortness of breath, hypoxia
Medical History
-
History of Present Illness:
History obtained from the patient, reviewing outpatient and inpatient records and from at bedside. 78-year-old pleasant male with history of Conner positive hemolytic anemia. Patient states he was feeling well up until last few days he had
noticed increased shortness of breath along with fatigue, increased lower extremity swelling. Weight increased a few pounds. Throughout this he denied PND, orthopnea, fevers, cough, hemoptysis, dysphagia or choking. brought him to [facility] emergency room where upon arrival, afebrile, pulse 110, breathing at 26, blood pressure 92/56, 94%. Patient was noted to have anemia. Marginal blood pressure also noted. Patient had an echocardiogram which revealed normal biventricular
function. Gentle IV fluids seem to improve blood pressure. Patient was given IV antibiotics, admitted for further management. We are asked to comment on his pulmonary process.
Since admission, he feels much improved. Is currently voraciously eating his dinner with at bedside
.
PMH: Hypertension, hyponatremia, history of pleural effusion, hemolytic anemia, hypothyroidism, bullous pemphigoid, history of tonsillectomy
Past Medical History
Past Medical History: None (See above)
Past Surgical History: None (See above)
Social History
Tobacco: Former Smoker (Pipe smoker many years ago while in the [employer])
Alcohol: None
Drug: None
Personal:
Living: With Family
Employment: Retired
Family History
Family History: Reviewed & Not Pertinent
Allergies / Home Medications
Allergies
Allergy/AdvReac Type Severity Reaction Status Date / Time
amlodipine Allergy pt states Verified 01/01/24 14:19
it caused
his sodium
level to
be low
Home Medications
�Medication �Instructions �Recorded �Confirmed �Last Taken �Type
levothyroxine 75 mcg tablet 75 mcg PO DAILY AT 0700 Thyroid 12/03/18 01/01/24 01/01/24 History
folic acid 1 mg tablet 1 mg PO DAILY Supplement 09/26/23 01/01/24 01/01/24 History
polyethylene glycol 3350 17 gram 17 g PO DAILY constipation 10/17/23 01/01/24 Unknown History
oral powder packet (HealthyLax)
sodium chloride 1,000 mg soluble 1,000 mg PO BID Electrolyte 10/17/23 01/01/24 01/01/24 History
tablet Repletion
cholecalciferol (vitamin D3) 25 25 mcg PO DAILY Supplement 10/30/23 01/01/24 01/01/24 History
mcg (1,000 unit) tablet
aspirin 81 mg tablet,delayed 81 mg PO DAILY Blood clot 11/03/23 01/01/24 01/01/24 Rx
release prevention/tx #30 tabs
atorvastatin 40 mg tablet 40 mg PO QPM High cholesterol #30 11/03/23 01/01/24 12/31/23 Rx
tabs
cyanocobalamin (vitamin B-12) 1,000 mcg PO DAILY Supplement #30 11/03/23 01/01/24 01/01/24 Rx
1,000 mcg tablet tabs
pantoprazole 40 mg tablet,delayed 40 mg PO DAILY Gastrointestinal 11/03/23 01/01/24 01/01/24 Rx
release issue #30 tabs
furosemide 20 mg tablet 20 mg PO BID AT 0800,1600 01/01/24 01/01/24 01/01/24 History
hyponatremia
metoprolol succinate 25 mg 25 mg PO BID Heart 01/01/24 01/01/24 01/01/24 History
tablet,extended release 24 hr disease/condition
prednisone 20 mg tablet 60 mg PO DAILY Anti-Inflammatory 01/01/24 01/01/24 01/01/24 History
urea 15 gram oral powder packet 1 packet PO BID Electrolyte 01/01/24 01/01/24 01/01/24 History
Repletion
Review of Systems
-
All other systems: Negative unless noted
Vitals / Labs / Diagnostic Testing
Vital Signs
Temp Pulse Resp BP Pulse Ox
98.3 F 106 17 101/64 92
01/02/24 15:00 01/02/24 15:00 01/02/24 15:00 01/02/24 15:00 01/02/24 15:00
Lab Data
01/02/24 05:48
01/02/24 05:48
Microbiology
01/01/24 16:02 Blood/Venous Blood Culture - Preliminary
No Growth in 24 hours- Final report to follow
01/01/24 14:51 Blood/Venous Blood Culture - Preliminary
No Growth in 24 hours- Final report to follow
01/02/24 09:15 Nose Nasal Screen MRSA (PCR) - Final
Staph aureus MRSA
01/01/24 17:25 Urine Legionella Urinary Antigen - Final
Negative for Legionella pneumophila Serogroup 1 antigen.
A negative result does not rule out the possiblity of
Legionella infection due to other serogroups or species of
Legionella. Clinical correlation is recommended.
01/01/24 17:25 Urine Streptococcus pneumoniae Antigen (M - Final
Negative for Streptococcus pneumoniae antigen.
A negative result does not exclude infection with
Streptococcus pneumoniae. Clinical correlation is
recommended.
01/01/24 14:51 Nasal Swab Influenza Types A & B (ORLY) - Final
Negative for Influenza A & B, NAAT
Negative results must be combined with clinical observations
and patient history.
Nucleic Acid Amplification test (NAAT)performed on the
[employer] platform.
Diagnostic Testing:
Physical Exam
-
HEENT: Normocephalic, Anicteric and Other (Narrow posterior oropharynx)
Cardiovascular: S1/S2, Regular Rhythm, Murmur (n), Rub (n) and Peripheral Edema (2+)
Respiratory: Wheeze (n), Rales (n), Rhonchi (n) and Other (Decreased at base)
GI: Soft, Non Distended and Non Tender
Neurology: Awake, Alert and No Motor Deficits
Skin: Other (Mild pallor, no clubbing, no cyanosis) and Other (Mild lower extremity rash, patchy discoloration)
General: Comfortable
Assessment
-
78-year-old male with complex medical history including recurrent hyponatremia, autoimmune hemolytic anemia, hypertension bullous pemphigoid who presents with increased shortness of breath for few days. He was found to be anemic. We are asked to
comment on his pulmonary process
Bilateral patchy infiltrates
History of hemolytic anemia
Warm antibody autoimmune hemolysis
Rituxan therapy monthly
On chronic prednisone therapy
Recurrent left pleural effusion
s/p Thora 09/26, 09/28, 10/09 (cytology Neg)
Mild MR, moderate AR
PA pressure 35
Normal biventricular function
Hyponatremia/hypokalemia
Elevated lactate
Depressed IgG
Conditions present prior to admission
History of SVT
History of stroke
History of recurrent hyponatremia/SIADH
Chronic autoimmune hemolytic anemia
Hypertension
History of bullous pemphigoid
History of colon cancer 2018
Hypothyroidism
BPH
Diverticulosis
Plan/recommendations
At this time, patient with extremely complex medical history
Salient features include chronic steroid therapy, recent Rituxan therapy 1 month ago, now presents with progressive shortness of breath, lower extreme edema and chest x-ray suggestive of bilateral infiltrates
History of recurrent left pleural effusion noted, drained x 3 back in September and October 2023, has not recurred
Differential is broad
Given chronic immunosuppression, sepsis, infection is high on the list
Viral studies negative
Lactate improved following gentle hydration
For now we will continue with empiric antibiotics
Follow-up blood cultures
Will obtain chest x-ray 01/03
If rapid improvement, suggests possible inflammatory process or pulmonary edema
Echocardiogram normal
Patient with complex volume status, difficulty to determine whether intermittently dry
Marginal blood pressure noted on admission, improved with gentle hydration
If radiographic abnormality persist, will consider CT chest
Will need to clarify patient's long-term steroid therapy and dose.
Patient also at risk for diffuse alveolar hemorrhage
Given drop in hemoglobin especially if active hemolysis is not suspected
Hematology is also following
Bone marrow biopsy has been considered in the past
Reviewed at length with patient and
Complex decision making process
[2024-01-02] MEDS: LIPITOR 40 MG PO (18:11)
[2024-01-02] MEDS: KCL 20 MEQ PO (20:11)
[2024-01-02 23:15] VITALS: BP 118/64
[2024-01-03] MEDS: ZOSYN 50 IV ×4 (04:00→21:11)
[2024-01-03] MEDS: SYNTHROID 75 MCG PO (05:51)
[2024-01-03] MEDS: VANCOCIN 200 IV ×2 (06:06→17:51)
[2024-01-03 07:47] VITALS: BP 111/62
[2024-01-03 07:59] LABS: Mean Corp Hgb Conc. 31.3 g/dL (33.0-37.0); Mean Corpuscular Hgb 33.3 pg (27.0-31.0); Mean Corpuscular Volume 106.7 fL (80.0-94.0); Mean Platelet Volume 9.8 fL (7.4-10.4); Platelet Count 176 10^3/uL (130-400); Red Blood Cell Count 1.95 10^6/uL (4.70-6.10); Red Cell Dist. Width 14.4 % (11.5-14.5); White Blood Cell Count 7.4 10^3/uL (4.8-10.8)
[2024-01-03 08:06] LABS: Hematocrit 20.8 % (39.0-52.0); Hemoglobin 6.5 g/dL (13.0-18.0)
[2024-01-03 08:22] LABS: Blood Urea Nitrogen 27 mg/dl (9-20); Calcium 7.7 mg/dl (8.4-10.2); Carbon Dioxide 23 mmol/L (22-30); Chloride 99 mmol/L (98-107); Direct Bilirubin 0.3 mg/dl (0.0-0.4); Estimated Creatinine Clearance 87 ml/min; Glucose 86 mg/dl (70-99); Potassium 3.8 mmol/L (3.5-5.1); Sodium 126 mmol/L (135-145); eGFR > 60.00
--- NOTE | 2024-01-03 09:26 | W.PN.PUL3 ---
Today's Communication / Plan
-
Chest x-ray in a.m.
At risk for DAH. Follow clinically
Remains on steroids.
Negative fluid status noted
Assessment
-
78-year-old male with complex medical history including recurrent hyponatremia, autoimmune hemolytic anemia, hypertension bullous pemphigoid who presents with increased shortness of breath for few days. He was found to be anemic. We are asked to
comment on his pulmonary process
Bilateral patchy infiltrates
History of hemolytic anemia
Warm antibody autoimmune hemolysis
Rituxan therapy monthly
On chronic prednisone therapy
Recurrent left pleural effusion
s/p Thora 09/26, 09/28, 10/09 (cytology Neg)
Mild MR, moderate AR
PA pressure 35
Normal biventricular function
Hyponatremia/hypokalemia
Elevated lactate
Depressed IgG
Conditions present prior to admission
History of SVT
History of stroke
History of recurrent hyponatremia/SIADH
Chronic autoimmune hemolytic anemia
Hypertension
History of bullous pemphigoid
History of colon cancer 2018
Hypothyroidism
BPH
Diverticulosis
Plan/recommendations
At this time, patient appears to be without complaints but remains on nasal cannula
-1300 cc fluid balance noted
Lower extremity with seems to be improved
Salient features include chronic steroid therapy, recent Rituxan therapy 1 month ago, now presents with progressive shortness of breath, lower extreme edema and chest x-ray suggestive of bilateral infiltrates
History of recurrent left pleural effusion noted, drained x 3 back in September and October 2023, has not recurred
Anemia noted, specifically in the setting of lack of obvious hemolysis per Hematology correspondence
At risk for diffuse alveolar hemorrhage given autoimmune process
Moving forward
For now we will continue with empiric antibiotics
Follow-up blood cultures
Will obtain chest x-ray 01/03
If rapid improvement, suggests possible inflammatory process or pulmonary edema
Echocardiogram normal
Patient with complex volume status, difficulty to determine whether intermittently dry
Marginal blood pressure noted on admission, improved with gentle hydration
If radiographic abnormality persist, will consider CT chest
Will need to clarify patient's long-term steroid therapy and dose.
Patient also at risk for diffuse alveolar hemorrhage
Given drop in hemoglobin especially if active hemolysis is not suspected
Hematology is also following
Bone marrow biopsy has been considered in the past
Assess oxygen needs. Patient not on home oxygen
Reviewed at length with patient
Subjective Data
-
Date of Service:
Date of Service: January 03, 2024
Subjective:
Patient examined earlier this morning. Although appears to be short of breath with mild use of accessory muscles, denies shortness of breath, chest pain, cough, nausea. Sits up without presyncopal symptoms. Conversing without difficulty
Objective Data
Data Reviewed
Vital Signs / I&O / Oxygen:
Vital Signs
Temp Pulse Resp BP Pulse Ox
98.4 F 79 18 111/62 88
01/03/24 07:47 01/03/24 07:47 01/03/24 07:47 01/03/24 07:47 01/03/24 07:47
Intake and Output
01/02/24 01/03/24 01/04/24
06:59 06:59 06:59
Intake Total 1700 / 1700
Output Total 1300 / 1300 3000 / 3000
Balance -1300 / -1300 -1300 / -1300
SaO2 88
Nasal Cannula flow liters per 3
minute
Physical Exam
General: Comfortable
HEENT: Normocephalic and Anicteric
Cardiovascular: S1-S2, Regular Rhythm, Murmur (n), Rub (n), Other (Trace edema) and Other (Mild mottling of lower extremities)
Respiratory: Wheeze (n), Crackles (n), Rhonchi (n) and Other (Decreased at base)
GI: Soft, Non Distended and Non Tender
Neurology: Awake, Alert and No Motor Deficits (Able to sit up without assistance)
Skin: Jaundice (n), Rash (n) and Bruising (n)
Labs/Micro/Reports
Lab Data
01/03/24 07:20
01/03/24 07:20
Microbiology
01/01/24 16:02 Blood/Venous Blood Culture - Preliminary
No Growth in 24 hours- Final report to follow
01/01/24 14:51 Blood/Venous Blood Culture - Preliminary
No Growth in 24 hours- Final report to follow
01/02/24 09:15 Nose Nasal Screen MRSA (PCR) - Final
Staph aureus MRSA
01/01/24 17:25 Urine Legionella Urinary Antigen - Final
Negative for Legionella pneumophila Serogroup 1 antigen.
A negative result does not rule out the possiblity of
Legionella infection due to other serogroups or species of
Legionella. Clinical correlation is recommended.
01/01/24 17:25 Urine Streptococcus pneumoniae Antigen (M - Final
Negative for Streptococcus pneumoniae antigen.
A negative result does not exclude infection with
Streptococcus pneumoniae. Clinical correlation is
recommended.
01/01/24 14:51 Nasal Swab Influenza Types A & B (ORLY) - Final
Negative for Influenza A & B, NAAT
Negative results must be combined with clinical observations
and patient history.
Nucleic Acid Amplification test (NAAT)performed on the
[employer] platform.
--- NOTE | 2024-01-03 10:04 | W.PN.ONC ---
Today's Communication / Plan
-
Discordance between hemolysis parameters and Hb/reticulocyte count
Urine hemosiderin pending
Transfuse with least incompatible blood when available from the [place]
Continue folic acid
Continue prednisone 60 mg daily but low threshold to start to wean that down
Await repeat haptoglobin
Stool for occult blood
LDH twice normal
Impression
Impression
Hyperproliferative (elevated reticulocyte count) recurrent acute anemia
History of WILLEM Conner positive hemolytic anemia
SIADH/hyponatremia
Subjective/Objective
Subjective/Objective
Patient with mild dyspnea with minimal exertion.
Vital Signs:
Vital Signs
Temp Pulse Resp BP Pulse Ox
98.4 F 79 18 111/62 88
01/03/24 07:47 01/03/24 07:47 01/03/24 07:47 01/03/24 07:47 01/03/24 07:47
PE: Unchanged
Lab Results:
Laboratory Data
WBC 7.4 10^3/uL (4.8-10.8) 01/03/24 07:20
Hgb 6.5 g/dL (13.0-18.0) L* 01/03/24 07:20
Plt Count 176 10^3/uL (130-400) 01/03/24 07:20
eGFR > 60.00 01/03/24 07:20
--- NOTE | 2024-01-03 10:37 | PHA.VAN.FU ---
Vancomycin Assessment / Plan
- Assessment
Renal Function: Stable
WBC's are: WNL
In the past 24 hrs, patient has been: Afebrile
Concomitant Antimicrobials: piperacillin/tazobactam
- Dosing Plan
Continue: Vanc 1000mg Q12H
- Monitoring Plan
Peak Level: 5/2 20:30
Trough Level: 5/3 05:30
Monitoring Comments: levels to be drawn after 4th maintenance dose
- Follow Up
Pharmacy will continue to follow.
Vancomycin Follow UP
- -
Patient Age: 78
Patient Sex: Male
Vancomycin Day #: 3
Indication: Pulmonary/Respiratory
Requesting Provider: Dr. Chapman
Pertinent Antimicrobial Allergies:
no pertinent antibiotic allergies
Height / Weight:
Height 5 ft 9 in
Actual Weight 84.005 kg
Pertinent Past Medical History: Warm antibody autoimmune hemolytic anemia (rituximab)
- Vital Signs / Lab Results
Temp Pulse Resp BP Pulse Ox
98.4 F 79 18 111/62 88
01/03/24 07:47 01/03/24 07:47 01/03/24 07:47 01/03/24 07:47 01/03/24 07:47
Lab Results - Hematology
01/01/24 01/02/24 01/03/24
14:51 05:48 07:20
WBC 11.5 H 7.3 7.4
Lab Results - Chemistry
01/01/24 01/02/24 01/03/24
14:51 05:48 07:20
BUN 33 H 31 H 27 H
Creatinine 0.8 0.7 0.7
Estimated Creat Clear 76 87 87
Albumin 3.0 L 2.6 L
01/01/24 01/01/24 01/02/24
14:51 20:13 01:28
Lactic Acid 4.9 H* 1.6 Cancelled
Microbiology Results
01/01/24 16:02 Blood Culture - Preliminary
Blood/Venous No Growth in 24 hours- Final report to follow
01/01/24 14:51 Blood Culture - Preliminary
Blood/Venous No Growth in 24 hours- Final report to follow
01/02/24 09:15 Nasal Screen MRSA (PCR) - Final
Nose Staph aureus MRSA
01/01/24 17:25 Legionella Urinary Antigen - Final
Urine Negative for Legionella pneumophila Serogroup 1 antigen.
A negative result does not rule out the possiblity of
Legionella infection due to other serogroups or species of
Legionella. Clinical correlation is recommended.
Streptococcus pneumoniae Antigen (M - Final
Negative for Streptococcus pneumoniae antigen.
A negative result does not exclude infection with
Streptococcus pneumoniae. Clinical correlation is
recommended.
01/01/24 14:51 Influenza Types A & B (ORLY) - Final
Nasal Swab Negative for Influenza A & B, NAAT
Negative results must be combined with clinical observations
and patient history.
Nucleic Acid Amplification test (NAAT)performed on the
[employer] platform.
[2024-01-03] MEDS: MIRALAX PO (10:42)
--- NOTE | 2024-01-03 10:44 | W.PN.HOSP.TC ---
Today's Communication/Plan
-
.
Assessment / Plan
Assessment / Plan
Physical Exam
General: Chronically ill looking. No Apparent Distress
HEENT: Normocephalic, Moist mucous membranes and Atraumatic
Respiratory: much better lung exam today, no wheezes or rales.
Cardiac: S1/S2.
GI: Soft, Non Tender, Non Distended and Normal Bowel Sounds;
Rectal: No rectal bleeding
Musculoskeletal: No Clubbing, No Cyanosis, Edema, Left Lower Extremity, Edema, Right Lower Extremity and No Edema
Skin: No Rash
Neuro: Nonfocal/grossly intact
Psych: no agitation, calm.
# History of WILLEM Conner positive hemolytic anemia
By reviewing his blood work. Normal haptoglobin early December, possible underlying other problem?.
Stable HGB at 6.5
Elevated reticulocyte count
Repeat haptoglobin
Transfusion with least incompatible blood from [place], await blood delivery.
Continue folic acid
Continue prednisone
Appreciate hematology input
# Sepsis (leukocytosis, tachycardia, borderline hypoxic, weakness) secondary to interstitial pneumonia in the setting of immunocompromise status from recent Rituxan
Acute hypoxic respiratory failure. SaO2 went down to lower 80s off O2 but level when to 91% on 3-4 liters. He did not have sob this morning or cough.
-COVID-negative, influenza negative
-Pro-Tay elevated 0.56
-Cardiac BNP of 2100
-Lactic acid 4.9
Mildly elevated procalcitonin
Chest radiography showing interstitial pneumonia
Continue prednisone. Continue empiric antibiotics. MRSA screen is positive
-Follow with the blood cultures, so far negative. Will change to doxy and cefdinir to do total 5 days Tx if blood culture remains negative.
Appreciate pulmonary input
# Acute on chronic heart failure with a preserved ejection fraction.
Less leg edema, better lung exam.
Echocardiogram showed LVEF 60 to 65%, mild LVH, stage II diastolic dysfunction. Mild MR, moderate aortic regurgitation, mild tricuspid regurgitation. Comparison to previous echocardiogram in October 2023, no significant change.
Elevated proBNP
c/w Lasix 40 mg daily
Appreciate cardiology input
# Hypokalemia, replaced
# Hyponatremia, History of hyponatremia associated seizure
Sodium 126 which is similar to previous blood work
No confusion
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 Continue sodium tablets and urea with the fluid restriction.Will give one dose of Tolvaptan.
#History of SVT
-Continue metoprolol
#Mild to moderate aortic regurgitation
Essential hypertension
#Recurrent left pleural effusion
Chest x ray on admission no significant left effusion.
#Hypothyroidism
-Continue levothyroxine
#Bullous pemphigoid
#History of CVA
-Continue statin & aspirin.
BPH
Diverticulosis
Chronic multilevel vertebral body endplate fractures
History of fatty liver
DNR/DNI
DVT prophylaxis�heparin
Cardiac diet
Total time spent to see the patient, examine the patient, review data and lab results, discuss treatment plan with patient, nursing staff around 55 minutes
Anticipated Discharge: > 48 hours
Subjective/Interval History
-
Date of Service: January 03, 2024
Objective Data
-
Labs:
Laboratory Results
01/03/24
07:20
WBC 7.4
Hgb 6.5 L*
Hct 20.8 L*
Plt Count 176
Sodium 126 L
Potassium 3.8
Chloride 99
Carbon Dioxide 23
BUN 27 H
Creatinine 0.7
Glucose 86
Calcium 7.7 L
Vital Signs:
Vital Signs
Temp Pulse Resp BP Pulse Ox
98.4 F 79 18 111/62 88
01/03/24 07:47 01/03/24 07:47 01/03/24 07:47 01/03/24 07:47 01/03/24 07:47
I&O
01/02/24 01/03/24 01/04/24
06:59 06:59 06:59
Intake Total 1700 / 1700
Output Total 1300 / 1300 3000 / 3000
Balance -1300 / -1300 -1300 / -1300
[2024-01-03] MEDS: VITAMIN D3 (cholecalciferol) 25 MCG PO (10:45)
[2024-01-03] MEDS: URE-NA 15 GRAMS PO ×2 (10:45→21:11)
[2024-01-03] MEDS: LASIX 40 MG IV (10:45)
[2024-01-03] MEDS: DELTASONE 60 MG PO (10:47)
[2024-01-03] MEDS: PROTONIX 40 MG PO (10:48)
[2024-01-03] MEDS: HEPARIN 5000 UNITS SC ×2 (10:48→21:10)
[2024-01-03] MEDS: TOPROL XL 25 MG PO ×2 (10:48→21:10)
[2024-01-03] MEDS: KCL 20 MEQ PO ×2 (10:49→21:10)
[2024-01-03] MEDS: ASPIR LOW (ENTERIC COATED) 81 MG PO (10:49)
[2024-01-03] MEDS: FOLVITE 1 MG PO (10:49)
[2024-01-03] MEDS: SODIUM CHLORIDE 1 GRAM PO ×2 (10:50→21:10)
[2024-01-03] MEDS: VITAMIN B-12 1000 MCG PO (10:50)
--- NOTE | 2024-01-03 10:50 | W.PN.CARDCBS ---
Today's Communication / Plan
-
Cont gentle diuresis with LE edema, increased pro-BNP and acute on chronic hyponatremia. Consider Lasix 40 mg IV x1 after transfusions.
Is and Os negative. Wt coming down.
Hyponatremia is chronic. Patient takes urea and salt tabs
Monitor HR on tele. Hx of bradycardia and atrial tachycardia. Toprol was lowered Oct 2023.
Anemia work up as per hematology.
Replete lytes as needed.
Cont supportive care.
Impression / Plan
-
.
PCP: Santiago Garvin
Jet Mechanic: Dr. Wade
Impression:
Sepsis
PNA
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
Acute HFpEF
Hyponatremia/SIADH
Hypokalemia
HTN
Recurrent left pleural effusion
h/o CVA 10/2023
Hypothyroidism
h/o Bullous Pemphigoid
Tricuspid regurgitation, Mild to moderate on echo 09/2023
Aortic regurgitation, �Mild to moderate on echo 09/2023
Mitral valve prolapse, mild bileaflet w/o significant regurgitation on echo 09/2023
Chronic Hypotension
h/o seizures x1 secondary to hyponatremia
Chronic Lower Extremity Edema
Echo 09/27/2023: EF 55-60%, mild bileaflet prolapse w/ trace MR, mild-mod AI. Mild-mod TR w/ RVSP 26 mmHg
Echo 10/19/2023: EF 55-60%. Bileaflet mitral valve prolapse with mild mitral regurgitation. Mild to moderate aortic regurgitation. Small pericardial effusion with no hemodynamic compromise. Normal size right atrium normal size left atrium. There
is no cardiac embolic source seen within the limitations of transthoracic echocardiographic imaging.
Echo 01/01/24: EF 60-65%, mild conc LVH, stage II diastolic dysfunction, mild MR mod AR, mild TR
Plan:
Cont gentle diuresis with LE edema, increased pro-BNP and acute on chronic hyponatremia. Consider Lasix 40 mg IV x1 after transfusions.
Is and Os negative. Wt coming down.
Hyponatremia is chronic. Patient takes urea and salt tabs
Monitor HR on tele. Hx of bradycardia and atrial tachycardia. Toprol was lowered Oct 2023.
Anemia work up as per hematology.
Replete lytes as needed.
Cont supportive care.
.
HPI: [facility] with increased SOB and was admitted with PNA, cardiology is consutled for possible acute HF. Patient noticed JOHNSON and came to [facility] and is admitted with sepsis and PNA. Patient with h/o HFpEF during 10/2023 admission. Patient
takes Lasix 20 mg PO BID and no missed doses recently. He thinks his LE edema is chronic. No orthopnea or PND. No bloating. pro-BNP was 2100 in the ER. Patient was given IVFs for sepsis. Initial Troponin in the ER was 0.04, but he denies chest pain.
Progress Note - Jet Mechanic
Subjective
Date of Service: January 03, 2024
Pt seen and examined. No cp.
Objective
Labs:
01/03/24 07:20
01/03/24 07:20
Labs
Hgb 6.5 g/dL (13.0-18.0) L* 01/03/24 07:20
Hct 20.8 % (39.0-52.0) L* 01/03/24 07:20
Plt Count 176 10^3/uL (130-400) 01/03/24 07:20
Sodium 126 mmol/L (135-145) L 01/03/24 07:20
Potassium 3.8 mmol/L (3.5-5.1) 01/03/24 07:20
BUN 27 mg/dl (9-20) H 01/03/24 07:20
Creatinine 0.7 mg/dL (0.7-1.3) 01/03/24 07:20
Glucose 86 mg/dl (70-99) 01/03/24 07:20
Troponins
01/01/24
14:51
Troponin I 0.040 H*
Vital Signs and I&O:
Vital Signs
Temp Pulse Resp BP Pulse Ox
98.4 F 79 18 111/62 88
01/03/24 07:47 01/03/24 07:47 01/03/24 07:47 01/03/24 07:47 01/03/24 07:47
Vital Signs
Temp Pulse Resp BP Pulse Ox
98.4 F 79 18 111/62 88
01/03/24 07:47 01/03/24 07:47 01/03/24 07:47 01/03/24 07:47 01/03/24 07:47
Intake & Output
01/01/24 01/02/24 01/03/24 01/04/24
06:59 06:59 06:59 06:59
Intake Total 1700 / 1700
Output Total 1300 / 1300 3000 / 3000
Balance -1300 / -1300 -1300 / -1300
Physical Exam
Physical Exam
General: No acute distress, AAOX3
Neck: Negative JVD
Heart: Regular, Negative S3 positive S1/S2, Negative S4, No murmur
Lungs: CTA b/l, negative wheezes/rales/rhonchi
Abd: Positive BS, NT/ND, neg rebound/rigidity/guarding
Ext: Negative cyanosis/clubbing/edema
Neuro: nonfocal
[2024-01-03] MEDS: SAMSCA 7.5 MG PO (13:14)
[2024-01-03 15:02] VITALS: BP 107/59
[2024-01-03 16:02] VITALS: BP 107/59
[2024-01-03] MEDS: LIPITOR 40 MG PO (17:51)
[2024-01-03 21:02] LABS: Vancomycin Peak 25.2 ug/ml (18-26)
[2024-01-03 22:29] VITALS: BP 109/63
[2024-01-03 23:05] VITALS: BP 109/63
[2024-01-03 23:20] VITALS: BP 101/59
[2024-01-04] VITALS (9 sets, daily range): BP systolic 95–131; BP diastolic 60–79; PULSE 80; O2SAT 94; BMI 27.2
[2024-01-04] MEDS: ZOSYN 50 IV ×4 (03:12→20:58)
[2024-01-04] MEDS: SYNTHROID 75 MCG PO (05:58)
[2024-01-04] MEDS: ASPIR LOW (ENTERIC COATED) 81 MG PO (08:51)
[2024-01-04] MEDS: DELTASONE 60 MG PO (08:51)
[2024-01-04] MEDS: PROTONIX 40 MG PO (08:51)
[2024-01-04] MEDS: URE-NA 15 GRAMS PO ×2 (08:51→20:57)
[2024-01-04] MEDS: KCL 20 MEQ PO ×2 (08:52→20:58)
[2024-01-04] MEDS: HEPARIN 5000 UNITS SC ×2 (08:52→20:56)
[2024-01-04] MEDS: VITAMIN D3 (cholecalciferol) 25 MCG PO (08:52)
[2024-01-04] MEDS: FOLVITE 1 MG PO (08:52)
[2024-01-04] MEDS: SODIUM CHLORIDE 1 GRAM PO ×2 (08:52→20:58)
[2024-01-04] MEDS: VITAMIN B-12 1000 MCG PO (08:52)
[2024-01-04] MEDS: LASIX 40 MG IV (08:59)
[2024-01-04] MEDS: MIRALAX PO (08:59)
[2024-01-04] MEDS: TOPROL XL 25 MG PO ×2 (08:59→20:57)
--- NOTE | 2024-01-04 09:05 | W.PN.ONC ---
Today's Communication / Plan
-
5/3 Hgb 10.6, Hct 30.7
s/p 2units PRBCs; improved from 6.5
Transfuse w/ least incompatible blood from the [place] as needed to maintain Hgb >7
Continue folic acid
Continue prednisone 60 mg daily
Low threshold to wean steroids at this time
Hematest stools
Wean oxygen
[place] office updated of patient's clinical status. we will follow.
Impression
Impression
Hyperproliferative (elevated reticulocyte count) recurrent acute anemia
History of WILLEM Conner positive hemolytic anemia
SIADH/hyponatremia
Subjective/Objective
Subjective/Objective
patient sitting up in bed, at bedside. he states he feels significantly better after 2 units of blood. denies pain. eager for discharge.
Vital Signs:
Vital Signs
Temp Pulse Resp BP Pulse Ox
98.0 F 71 17 129/65 93
01/04/24 07:30 01/04/24 07:30 01/04/24 07:30 01/04/24 08:59 01/04/24 07:30
Lab Results:
Laboratory Data
WBC 7.4 10^3/uL (4.8-10.8) 01/03/24 07:20
Hgb 6.5 g/dL (13.0-18.0) L* 01/03/24 07:20
Plt Count 176 10^3/uL (130-400) 01/03/24 07:20
eGFR > 60.00 01/03/24 07:20
physical exam:
aaox3, pleasant, cooperative
HRR, lungs diminished 2L nasal cannula oxygen
[2024-01-04 10:06] LABS: % Basophils 0.2 % (0-2); % Eosinophils 0.4 % (0-6); % Immature Granulocytes 4.5 % (0-0.5); % Lymphocytes 2.6 % (20.5-51.1); % Monocytes 1.5 % (1.7-9.3); % Neutrophils 90.8 % (42.2-75.2); Absolute Immature Granulocytes 0.4 10^3/uL (0-0.05); Absolute Lymphocytes 0.2 10^3/uL (1.2-3.4); Absolute Monocytes 0.1 10^3/uL (0.1-0.6); Absolute Neutrophils 7.8 10^3/uL (1.4-6.5); Hematocrit 30.7 % (39.0-52.0); Mean Corp Hgb Conc. 34.5 g/dL (33.0-37.0); Mean Corpuscular Hgb 33.2 pg (27.0-31.0); Mean Corpuscular Volume 96.2 fL (80.0-94.0); Mean Platelet Volume 10.8 fL (7.4-10.4); Nucleated Red Blood Cells % 0 % (-); Platelet Count 174 10^3/uL (130-400); Red Blood Cell Count 3.19 10^6/uL (4.70-6.10); Red Cell Dist. Width 17.6 % (11.5-14.5); White Blood Cell Count 8.5 10^3/uL (4.8-10.8)
[2024-01-04 10:08] LABS: Hemoglobin 10.6 g/dL (13.0-18.0)
--- NOTE | 2024-01-04 10:26 | CM ---
Patient seen bedside.
S/P blood products last ranjan. HGB 10.6 this am.
patient continues with oxygen via [place] 3 liters per min.
Continues IV diuresis and anbx.
Patient denies home care needs.
Plan: home no home care needs, will follow for home oxygen needs.
--- NOTE | 2024-01-04 10:28 | W.PN.HOSP.TC ---
Today's Communication/Plan
-
.
Assessment / Plan
Assessment / Plan
Physical Exam
General: Chronically ill looking. No Apparent Distress
HEENT: Normocephalic, Moist mucous membranes and Atraumatic
Respiratory: much better lung exam today, no wheezes or rales.
Cardiac: S1/S2.
GI: Soft, Non Tender, Non Distended and Normal Bowel Sounds;
Rectal: No rectal bleeding
Musculoskeletal: No Clubbing, No Cyanosis, Edema, Left Lower Extremity, Edema, Right Lower Extremity and No Edema
Skin: No Rash
Neuro: Nonfocal/grossly intact
Psych: no agitation, calm.
# History of WILLEM Conner positive hemolytic anemia
By reviewing his blood work. Normal haptoglobin early December, possible underlying other problem?.
Stable HGB at 6.5
Elevated reticulocyte count
Repeat haptoglobin
Transfusion with least incompatible blood from [place], await blood delivery.
Continue folic acid
Continue prednisone
Appreciate hematology input
# Sepsis (leukocytosis, tachycardia, borderline hypoxic, weakness) secondary to interstitial pneumonia in the setting of immunocompromise status from recent Rituxan
Acute hypoxic respiratory failure.
Still on oxygen
Chest x ray Moderate diffuse bilateral interstitial pneumonia, significantly worsened when compared with the prior study
-COVID-negative, influenza negative
-Pro-Tay elevated 0.56
-Cardiac BNP of 2100
-Lactic acid 4.9
Mildly elevated procalcitonin
Chest radiography showing interstitial pneumonia
Continue prednisone. Continue empiric antibiotics. MRSA screen is positive
-Follow with the blood cultures, so far negative. Will change to doxy and cefdinir to do total 5 days Tx if blood culture remains negative.
Appreciate pulmonary input
# Acute on chronic heart failure with a preserved ejection fraction.
Less leg edema, better lung exam.
Echocardiogram showed LVEF 60 to 65%, mild LVH, stage II diastolic dysfunction. Mild MR, moderate aortic regurgitation, mild tricuspid regurgitation. Comparison to previous echocardiogram in October 2023, no significant change.
Elevated proBNP
c/w Lasix 40 mg daily
Appreciate cardiology input
# Hypokalemia, replaced
# Hyponatremia, History of hyponatremia associated seizure
Sodium 126 which is similar to previous blood work
No confusion
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 Continue sodium tablets and urea with the fluid restriction.Will give one dose of Tolvaptan.
#History of SVT
-Continue metoprolol
#Mild to moderate aortic regurgitation
Essential hypertension
#Recurrent left pleural effusion
Chest x ray on admission no significant left effusion.
#Hypothyroidism
-Continue levothyroxine
#Bullous pemphigoid
#History of CVA
-Continue statin & aspirin.
BPH
Diverticulosis
Chronic multilevel vertebral body endplate fractures
History of fatty liver
DNR/DNI
DVT prophylaxis�heparin
Cardiac diet
Total time spent to see the patient, examine the patient, review data and lab results, discuss treatment plan with patient, , nursing staff around 59 minutes
Anticipated Discharge: > 48 hours
Subjective/Interval History
-
Date of Service: January 04, 2024
he could not sleep well due to blood transfusion over night
No chest pain
No sob
Objective Data
-
Labs:
Laboratory Results
01/04/24 01/04/24 01/04/24
09:56 09:57 10:23
WBC 8.5
Hgb 10.6 L D
Hct 30.7 L
Plt Count 174
Sodium Cancelled Pending
Potassium Cancelled Pending
Chloride Cancelled Pending
Carbon Dioxide Cancelled Pending
BUN Cancelled Pending
Creatinine Cancelled Pending
Glucose Cancelled Pending
Calcium Cancelled Pending
Vital Signs:
Vital Signs
Temp Pulse Resp BP Pulse Ox
98.0 F 71 17 129/65 93
01/04/24 07:30 01/04/24 07:30 01/04/24 07:30 01/04/24 08:59 01/04/24 07:30
I&O
01/03/24 01/04/24 01/05/24
06:59 06:59 06:59
Intake Total 1700 / 1700 2410 / 2410 250 / 250
Output Total 3000 / 3000 3340 / 3340
Balance -1300 / -1300 -930 / -930 250 / 250
[2024-01-04 11:09] LABS: Blood Urea Nitrogen 42 mg/dl (9-20); Calcium 8.6 mg/dl (8.4-10.2); Carbon Dioxide 24 mmol/L (22-30); Chloride 102 mmol/L (98-107); Estimated Creatinine Clearance 87 ml/min; Glucose 81 mg/dl (70-99); Sodium 133 mmol/L (135-145); eGFR > 60.00
--- NOTE | 2024-01-04 11:15 | W.PN.PUL3 ---
Today's Communication / Plan
-
Chest x-ray with persistent abnormality, patient without symptoms
Continue antibiotics
Wean off oxygen
Remains on steroids for hemolytic anemia, per hematology
If no improvement in oxygenation or hemoglobin continues to go down without evidence of hemolysis, will check CT chest
Need to consider opportunistic infection if worsens radiographically or clinically
Patient will require outpatient follow-up with pulmonary
Assessment
-
78-year-old male with complex medical history including recurrent hyponatremia, autoimmune hemolytic anemia, hypertension bullous pemphigoid who presents with increased shortness of breath for few days. He was found to be anemic. We are asked to
comment on his pulmonary process
Bilateral patchy infiltrates
History of hemolytic anemia
Warm antibody autoimmune hemolysis
Rituxan therapy monthly
On chronic prednisone therapy
Recurrent left pleural effusion
s/p Thora 09/26, 09/28, 10/09 (cytology Neg)
Mild MR, moderate AR
PA pressure 35
Normal biventricular function
Hyponatremia/hypokalemia
Elevated lactate
Depressed IgG
Conditions present prior to admission
History of SVT
History of stroke
History of recurrent hyponatremia/SIADH
Chronic autoimmune hemolytic anemia
Hypertension
History of bullous pemphigoid
History of colon cancer 2018
Hypothyroidism
BPH
Diverticulosis
Plan/recommendations
At this time, patient appears to be without complaints but remains on nasal cannula
Status post transfusion, hemoglobin now 10.6
Negative fluid status continues
Lower extremity with seems to be improved
Chest x-ray today with persistent bilateral infiltrates
Salient features include chronic steroid therapy, recent Rituxan therapy 1 month ago, now presents with progressive shortness of breath, lower extreme edema and chest x-ray suggestive of bilateral infiltrates
History of recurrent left pleural effusion noted, drained x 3 back in September and October 2023, has not recurred
Anemia noted, specifically in the setting of lack of obvious hemolysis per Hematology correspondence
At risk for diffuse alveolar hemorrhage given autoimmune process
Moving forward
For now we will continue with empiric antibiotics
Follow-up blood cultures
Chest x-ray does not suggest rapid improvement
Echocardiogram normal
Patient with complex volume status, difficulty to determine whether intermittently dry
Marginal blood pressure noted on admission, improved with gentle hydration
Differential also includes opportunistic infection, pneumocystis, fungal infection
Will need to consider CT chest but given lack of symptoms, would like to hold off at this time
Trend hemoglobin
If decreases significantly without evidence of hemolysis, will consider CT chest without contrast
Patient at risk for diffuse alveolar hemorrhage
Hematology is also following
Bone marrow biopsy has been considered in the past
Assess oxygen needs. Patient not on home oxygen
Wean oxygen as able, maintain saturation greater than 89%
Reviewed at length with patient
Updated at length
Subjective Data
-
Date of Service:
Date of Service: January 04, 2024
Chief Complaint: Dyspnea Follow Up
Subjective:
Patient denies any symptoms. Denies shortness of breath, chest pain, cough, nausea. States he is ambulating in the room without difficulty. Remains on 3 L. Status post transfusion
Objective Data
Data Reviewed
Vital Signs / I&O / Oxygen:
Vital Signs
Temp Pulse Resp BP Pulse Ox
98.0 F 71 17 129/65 93
01/04/24 07:30 01/04/24 07:30 01/04/24 07:30 01/04/24 08:59 01/04/24 07:30
Intake and Output
01/03/24 01/04/24 01/05/24
06:59 06:59 06:59
Intake Total 1700 / 1700 2410 / 2410 250 / 250
Output Total 3000 / 3000 3340 / 3340
Balance -1300 / -1300 -930 / -930 250 / 250
SaO2 93
Nasal Cannula flow liters per 3
minute
Physical Exam
General: Comfortable
HEENT: Normocephalic and Anicteric
Cardiovascular: S1-S2, Regular Rhythm, Murmur (n), Rub (n), Other (Trace edema) and Other (Mild mottling of lower extremities)
Respiratory: Wheeze (n), Crackles (n), Rhonchi (n) and Other (Decreased at base, bronchial)
GI: Soft, Non Distended and Non Tender
Neurology: Awake, Alert and No Motor Deficits (Able to sit up without assistance)
Skin: Jaundice (n), Rash (n) and Bruising (n)
Labs/Micro/Reports
Lab Data
01/04/24 09:56
01/04/24 10:37
Microbiology
01/01/24 16:02 Blood/Venous Blood Culture - Preliminary
No Growth in 48 hours- Final report to follow
01/01/24 14:51 Blood/Venous Blood Culture - Preliminary
No Growth in 48 hours- Final report to follow
01/02/24 09:15 Nose Nasal Screen MRSA (PCR) - Final
Staph aureus MRSA
01/01/24 17:25 Urine Legionella Urinary Antigen - Final
Negative for Legionella pneumophila Serogroup 1 antigen.
A negative result does not rule out the possiblity of
Legionella infection due to other serogroups or species of
Legionella. Clinical correlation is recommended.
01/01/24 17:25 Urine Streptococcus pneumoniae Antigen (M - Final
Negative for Streptococcus pneumoniae antigen.
A negative result does not exclude infection with
Streptococcus pneumoniae. Clinical correlation is
recommended.
01/01/24 14:51 Nasal Swab Influenza Types A & B (ORLY) - Final
Negative for Influenza A & B, NAAT
Negative results must be combined with clinical observations
and patient history.
Nucleic Acid Amplification test (NAAT)performed on the
[employer] platform.
--- NOTE | 2024-01-04 11:52 | W.PN.CARDCBS ---
Addendum entered and electronically signed by Vincenzo Grady MD 01/04/24 12:53:
I saw and examined the patient.
The [employer] JOU[employer] or PA's note was reviewed and I agree with the note.
Comment: General: Well developed, well nourished in NAD.
Neck: Supple, no JVD, HJR, carotids +2 B/L, no bruits bilaterally.
Heart: Non displaced PMI, RRR, no murmurs, No S3, S4, no rubs.
Lungs: Scattered rhonchi
Extremities: No clubbing, cyanosis or edema bilaterally.
Neuro: Grossly nonfocal, awake, alert and oriented x3.
Appears to be doing well. Remains on oxygen. Will try IV Lasix for another 24 hours and consider change to oral Lasix in a.m. Discussed with at bedside.
Original Note:
Today's Communication / Plan
-
Continue gentle diuresis with IV Lasix
continue to monitor renal function, electrolytes
Hemoglobin improved post transfusions
wean oxygen as tolerated
Impression / Plan
-
.
PCP: Santiago Garivn
Bark Grinder: Dr. Wade
Impression:
Presented 01/01/24 with shortness of breath
Acute hypoxic respiratory insufficiency
Sepsis
PNA
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
Acute HFpEF
Hyponatremia/SIADH
Hypokalemia
HTN
Recurrent left pleural effusion acute on chronic hemolytic anemia.
h/o CVA 10/2023
Hypothyroidism
h/o Bullous Pemphigoid
Tricuspid regurgitation, Mild to moderate on echo 09/2023
Aortic regurgitation, �Mild to moderate on echo 09/2023
Mitral valve prolapse, mild bileaflet w/o significant regurgitation on echo 09/2023
Chronic Hypotension
h/o seizures x1 secondary to hyponatremia
Chronic Lower Extremity Edema
Echo 09/27/2023: EF 55-60%, mild bileaflet prolapse w/ trace MR, mild-mod AI. Mild-mod TR w/ RVSP 26 mmHg
Echo 10/19/2023: EF 55-60%. Bileaflet mitral valve prolapse with mild mitral regurgitation. Mild to moderate aortic regurgitation. Small pericardial effusion with no hemodynamic compromise. Normal size right atrium normal size left atrium. There
is no cardiac embolic source seen within the limitations of transthoracic echocardiographic imaging.
Echo 01/01/24: EF 60-65%, mild conc LVH, stage II diastolic dysfunction, mild MR mod AR, mild TR
Plan:
Acute heart failure proBNP 2100 on admission
Acute on chronic hyponatremia
Weight is down a few pounds and negative ~ 3 L. Continue gentle diuresis IV Lasix 40 mg
Consider additional Lasix 40 mg IV x1 after transfusions.
Creatinine stable 0.7, K+ 4.0
Hyponatremia is chronic. Stable with improving sodium of 133. patient takes urea and salt tabs as outpatient
Monitor HR on tele. Hx of bradycardia and atrial tachycardia. Overall heart rates have been stable. Toprol was lowered Oct 2023.
Acute on chronic hemolytic anemia, hematology following
status post 1 unit packed RBCs 01/03/2024 status post 1 unit packed RBCs 01/04/2024
Hemoglobin improved to 10.6 post transfusions
Continue prednisone 60 mg daily
Wean oxygen as tolerated, currently on 2 L
Chest x-ray being repeated per pulmonary
cont supportive care.
HPI: [facility] with increased SOB and was admitted with PNA, cardiology is consutled for possible acute HF. Patient noticed [facility] and came to [facility] and is admitted with sepsis and PNA. Patient with h/o HFpEF during 10/2023 admission. Patient
takes Lasix 20 mg PO BID and no missed doses recently. He thinks his LE edema is chronic. No orthopnea or PND. No bloating. pro-BNP was 2100 in the ER. Patient was given IVFs for sepsis. Initial Troponin in the ER was 0.04, but he denies chest pain.
Progress Note - Bark Grinder
Subjective
Date of Service: January 04, 2024
Patient seen and examined. Patient lying in bed still on oxygen. He reports this morning he is feeling considerably better than he did yesterday. He has more energy and is less short of breath.
Patient's at bedside
Objective
Labs:
01/04/24 09:56
01/04/24 10:37
Labs
Hgb 10.6 g/dL (13.0-18.0) L D 01/04/24 09:56
Hct 30.7 % (39.0-52.0) L 01/04/24 09:56
Plt Count 174 10^3/uL (130-400) 01/04/24 09:56
Sodium 133 mmol/L (135-145) L 01/04/24 10:37
Potassium 4.0 mmol/L (3.5-5.1) 01/04/24 10:37
BUN 42 mg/dl (9-20) H 01/04/24 10:37
Creatinine 0.7 mg/dL (0.7-1.3) 01/04/24 10:37
Glucose 81 mg/dl (70-99) 01/04/24 10:37
Troponins
01/01/24
14:51
Troponin I 0.040 H*
Vital Signs and I&O:
Vital Signs
Temp Pulse Resp BP Pulse Ox
98.0 F 71 17 129/65 93
01/04/24 07:30 01/04/24 07:30 01/04/24 07:30 01/04/24 08:59 01/04/24 07:30
Vital Signs
Temp Pulse Resp BP Pulse Ox
98.0 F 71 17 129/65 93
01/04/24 07:30 01/04/24 07:30 01/04/24 07:30 01/04/24 08:59 01/04/24 07:30
Intake & Output
01/02/24 01/03/24 01/04/2401/04/24
06:59 06:59 06:59 06:59
Intake Total 1700 / 1700 2410 / 2410 250 / 250
Output Total 1300 / 1300 3000 / 3000 3340 / 3340
Balance -1300 / -1300 -1300 / -1300 -930 / -930 250 / 250
Physical Exam
Physical Exam
GEN: No distress, awake, Ox3
HEENT: supple, anicteric, mmm
LUNGS: Mildly decreased at left base otherwise CTA, no wheezes/rales
CV: Reg, S1/S2, no murmur, rub or gallop
ABD: soft, BS+, NT/ND
EXT: +1-2 bilateral pitting lower extremity edema
NEURO: Gross non-focal
SKIN: No rash, numerous areas of ecchymosis on bilateral arms
[2024-01-04 11:59] LABS: Vancomycin Trough 13.8 ug/ml (5-20)
--- NOTE | 2024-01-04 12:18 | PHA.VAN.FU ---
Vancomycin Assessment / Plan
- Assessment
Renal Function: Stable (SCR stable but BUN increased)
WBC's are: WNL
In the past 24 hrs, patient has been: Afebrile
Concomitant Antimicrobials: piperacillin/tazobactam
- Assessment - Therapeutic Drug Monitoring
Extrapolated Cmax (mcg/mL): 25.2
Peak level was drawn: Appropriately (drawn ~1.7H after end of previous infusion)
Extrapolated Cmin (mcg/mL): 16.6
Trough Drawn: Appropriately (level drawn before dose, but was drawn ~4.5H late due to blood transfusion)
Levels were drawn: At steady state (levels drawn after 4th maintenance dose)
Calculated AUC (mcg*h/mL): 516
Calculated ke: 0.0451
Calculated half life (H): 15.4
Calculated Vd (L): 85.8 (~1 L/kg)
Calculated Vanc CL (ml/min): 65
- Dosing Plan
Adjust Regimen to: dosing by level given increase in BUN
Dosing by Level: Re-dose today (1250mg)
Can consider scheduling Vanc 1250mg Q24H based on half-life but holding off on scheduling for now due to increase in BUN
- Monitoring Plan
Random Level: 01/04 0600
- Follow Up
Pharmacy will continue to follow.
Vancomycin Follow UP
- -
Patient Age: 78
Patient Sex: Male
Vancomycin Day #: 4
Indication: Pulmonary/Respiratory
Requesting Provider: Dr. Chapman
Pertinent Antimicrobial Allergies:
no pertinent antibiotic allergies
Height / Weight:
Height 5 ft 9 in
Actual Weight 83.603 kg
Pertinent Past Medical History: Warm antibody autoimmune hemolytic anemia (rituximab)
- Vital Signs / Lab Results
Temp Pulse Resp BP Pulse Ox
98.0 F 71 17 129/65 93
01/04/24 07:30 01/04/24 07:30 01/04/24 07:30 01/04/24 08:59 01/04/24 07:30
Lab Results - Hematology
01/01/24 01/02/24 01/03/24
14:51 05:48 07:20
WBC 11.5 H 7.3 7.4
01/04/24
09:56
WBC 8.5
Lab Results - Chemistry
01/01/24 01/02/24 01/03/24
14:51 05:48 07:20
BUN 33 H 31 H 27 H
Creatinine 0.8 0.7 0.7
Estimated Creat Clear 76 87 87
Albumin 3.0 L 2.6 L
01/04/24 01/04/24
09:57 10:37
BUN Cancelled 42 H
Creatinine Cancelled 0.7
Estimated Creat Clear Cancelled 87
Albumin
01/01/24 01/01/24 01/02/24
14:51 20:13 01:28
Lactic Acid 4.9 H* 1.6 Cancelled
Microbiology Results
01/01/24 16:02 Blood Culture - Preliminary
Blood/Venous No Growth in 48 hours- Final report to follow
01/01/24 14:51 Blood Culture - Preliminary
Blood/Venous No Growth in 48 hours- Final report to follow
01/02/24 09:15 Nasal Screen MRSA (PCR) - Final
Nose Staph aureus MRSA
Therapeutic Drug Monitoring
Vancomycin Peak 25.2 ug/ml (18-26) 01/03/24 20:35
Vancomycin Trough 13.8 ug/ml (5-20) 01/04/24 09:56
[2024-01-04] MEDS: VANCOCIN 275 MG IV (13:14)
--- NOTE | 2024-01-04 15:29 | PN.CDI ---
Addendum entered and electronically signed by Todd Watson MD 01/04/24 16:35:
Lactic acidosis
Original Note:
CDI
- -
CDI:
Physician Documentation Request
Admit Date: 01/01/24 17:35
Dear Doctor Shirley,
Patient admitted with sepsis.
12/31 Lactic acid 4.9
Patient recurved IV NSS.
Based on the above, please clarify in the progress notes, the appropriate diagnosis, if significant, that supports the above abnormalities and additional evaluation, monitoring and/or treatment rendered:
Lactic acidosis
Insignificant abnormal lab finding
Other
Use of terms such as suspected, likely, concern for, or probable (associated with a specific diagnosis that is being evaluated, monitored, or treated as if it exists) are acceptable and can be coded in the inpatient setting, when documented at the
time of discharge.
Thank you,
Melvina LIRIANO,RN,CCDS
CDI Specialist
Available via [place] text
Please use your independent medical judgment in providing your response.
[2024-01-04] MEDS: LIPITOR 40 MG PO (17:01)
[2024-01-04 22:10] LABS: Urine Hemosiderin Absent (Absent)
[2024-01-05] VITALS (7 sets, daily range): BP systolic 100–138; BP diastolic 54–74; PULSE 89; O2SAT 93; BMI 26.5
[2024-01-05 04:08] LABS: Haptoglobin 184 mg/dL (30-200)
[2024-01-05] MEDS: ZOSYN 50 IV ×4 (04:39→22:01)
[2024-01-05] MEDS: SYNTHROID 75 MCG PO (06:18)
[2024-01-05 07:24] LABS: Vancomycin Random 11.9 ug/ml
[2024-01-05] MEDS: KCL 20 MEQ PO ×2 (08:59→20:37)
[2024-01-05] MEDS: DELTASONE 60 MG PO (08:59)
[2024-01-05] MEDS: ASPIR LOW (ENTERIC COATED) 81 MG PO (08:59)
[2024-01-05] MEDS: VITAMIN B-12 1000 MCG PO (08:59)
[2024-01-05] MEDS: SODIUM CHLORIDE 1 GRAM PO ×2 (09:00→20:37)
[2024-01-05] MEDS: VITAMIN D3 (cholecalciferol) 25 MCG PO (09:00)
[2024-01-05] MEDS: TOPROL XL 25 MG PO ×2 (09:00→20:37)
[2024-01-05] MEDS: LASIX 40 MG IV (09:00)
[2024-01-05] MEDS: MIRALAX PO (09:00)
[2024-01-05] MEDS: PROTONIX 40 MG PO (09:00)
[2024-01-05] MEDS: URE-NA 15 GRAMS PO ×2 (09:01→20:38)
[2024-01-05] MEDS: FOLVITE 1 MG PO (09:02)
[2024-01-05] MEDS: HEPARIN 5000 UNITS SC ×2 (09:02→20:38)
--- NOTE | 2024-01-05 10:31 | W.PN.CARDCBS ---
Today's Communication / Plan
-
I do not think he is intravascularly significantly volume overloaded any longer.
Will transition to 40 mg oral daily
Consider additional Lasix 40 mg IV x1 after transfusions.
Diuretic instructions as above. Otherwise not adding much from a cardiology standpoint. Will sign off. Please call us back if needed.
Impression / Plan
-
.
PCP: Santiago Garvin
Timber Treating Tank Operator: Dr. Wade
Impression:
Presented 01/01/24 with shortness of breath
Acute hypoxic respiratory insufficiency
Sepsis
PNA
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
Acute HFpEF
Hyponatremia/SIADH
Hypokalemia
HTN
Recurrent left pleural effusion acute on chronic hemolytic anemia.
h/o CVA 10/2023
Hypothyroidism
h/o Bullous Pemphigoid
Tricuspid regurgitation, Mild to moderate on echo 09/2023
Aortic regurgitation, �Mild to moderate on echo 09/2023
Mitral valve prolapse, mild bileaflet w/o significant regurgitation on echo 09/2023
Chronic Hypotension
h/o seizures x1 secondary to hyponatremia
Chronic Lower Extremity Edema
Echo 09/27/2023: EF 55-60%, mild bileaflet prolapse w/ trace MR, mild-mod AI. Mild-mod TR w/ RVSP 26 mmHg
Echo 10/19/2023: EF 55-60%. Bileaflet mitral valve prolapse with mild mitral regurgitation. Mild to moderate aortic regurgitation. Small pericardial effusion with no hemodynamic compromise. Normal size right atrium normal size left atrium. There
is no cardiac embolic source seen within the limitations of transthoracic echocardiographic imaging.
Echo 01/01/24: EF 60-65%, mild conc LVH, stage II diastolic dysfunction, mild MR mod AR, mild TR
Plan:
Acute heart failure proBNP 2100 on admission (HFpEF)
Weight is down 5 lbs overnight.
Has been receiving Lasix 40 mg IV daily.
Will transition to 40 mg oral daily
Consider additional Lasix 40 mg IV x1 after transfusions.
Hyponatremia is chronic. Stable with improving sodium of 133. patient takes urea and salt tabs as outpatient
Monitor HR on tele. Hx of bradycardia and atrial tachycardia. Overall heart rates have been stable. Toprol was lowered Oct 2023.
Acute on chronic hemolytic anemia, hematology following
Status post 1 unit packed RBCs 01/03/2024 status post 1 unit packed RBCs 01/04/2024
Hemoglobin improved to 10.6 post transfusions
Currently on prednisone 60 mg daily
Persistently abnormal chest x-ray, pulmonary following.
Diuretic instructions as above. Otherwise not adding much from a cardiology standpoint. Will sign off. Please call us back if needed.
Discussed with both patient and his who is at bedside.
Total time spent today was 50 minutes in preparing to see the patient, seeing the patient and coordination of care. This included review of recent laboratory evaluations, cardiac testing, imaging studies, primary care records, specialty
consultations, hospital records, as well as personally interviewing and examining the patient, which included discussion of his tests, review/ordering medications as well as counseling.
HPI: Patient came to [facility] with increased SOB and was admitted with PNA, cardiology is consutled for possible acute HF. Patient noticed [facility] and [facility] and is admitted with sepsis and PNA. Patient with h/o HFpEF during 10/2023 admission. Patient
takes Lasix 20 mg PO BID and no missed doses recently. He thinks his LE edema is chronic. No orthopnea or PND. No bloating. pro-BNP was 2100 in the ER. Patient was given IVFs for sepsis. Initial Troponin in the ER was 0.04, but he denies chest pain.
Progress Note - Tim[employer] Treating [employer] Operator
Subjective
Date of Service: January 05, 2024
He is laying flat in bed, appears comfortable. He tells me he has no shortness of breath or chest pain dizziness or palpitations.
Objective
Labs:
01/04/24 09:56
01/04/24 10:37
Labs
Hgb 10.6 g/dL (13.0-18.0) L D 01/04/24 09:56
Hct 30.7 % (39.0-52.0) L 01/04/24 09:56
Plt Count 174 10^3/uL (130-400) 01/04/24 09:56
Sodium 133 mmol/L (135-145) L 01/04/24 10:37
Potassium 4.0 mmol/L (3.5-5.1) 01/04/24 10:37
BUN 42 mg/dl (9-20) H 01/04/24 10:37
Creatinine 0.7 mg/dL (0.7-1.3) 01/04/24 10:37
Glucose 81 mg/dl (70-99) 01/04/24 10:37
Vital Signs and I&O:
Vital Signs
Temp Pulse Resp BP Pulse Ox
98.3 F 99 18 138/74 95
01/05/24 08:09 01/05/24 09:00 01/05/24 08:09 01/05/24 09:00 01/05/24 08:09
Vital Signs
Temp Pulse Resp BP Pulse Ox
98.3 F 99 18 138/74 95
01/05/24 08:09 01/05/24 09:00 01/05/24 08:09 01/05/24 09:00 01/05/24 08:09
Intake & Output
01/03/24 01/04/24 01/05/24 01/06/24
06:59 06:59 06:59 06:59
Intake Total 1700 / 1700 2410 / 2410 2470 / 2470
Output Total 3000 / 3000 3340 / 3340 1050 / 1050
Balance -1300 / -1300 -930 / -930 1420 / 1420
Physical Exam
Physical Exam
Elderly gentleman, no acute distress appears comfortable.
Regular rate and rhythm normal S1 and S2, no S3 no S4. There is a grade 1/6 apical holosystolic murmur no rubs.
Lungs are clear to auscultation bilaterally without wheezes rales or rhonchi.
Abdomen soft nontender nondistended with normoactive bowel sounds.
Extremities with +1-2 pitting edema. Bilateral.
--- NOTE | 2024-01-05 11:09 | PHA.VAN.FU ---
Vancomycin Assessment / Plan
- Assessment
Renal Function: No New Labs Today
In the past 24 hrs, patient has been: Afebrile
- Assessment - Therapeutic Drug Monitoring
Random Level: 11.9 ~ 17 hrs after last 1250 mg dose
- Dosing Plan
Continue: dose by level ( no new labs to check SCr/BUN)
Dosing by Level: Re-dose today (1250 mg x 1 dose)
- Monitoring Plan
Random Level: 01/06/24 0600
- Follow Up
Pharmacy will continue to follow.
Vancomycin Follow UP
- -
Patient Age: 78
Patient Sex: Male
Vancomycin Day #: 5
Indication: Pulmonary/Respiratory
Requesting Provider: Dr. Chapman
Pertinent Antimicrobial Allergies:
no pertinent antibiotic allergies
Height / Weight:
Height 5 ft 9 in
Actual Weight 81.284 kg
Pertinent Past Medical History: Warm antibody autoimmune hemolytic anemia (rituximab)
- Vital Signs / Lab Results
Temp Pulse Resp BP Pulse Ox
97.6 F 113 18 117/68 90
01/05/24 10:38 01/05/24 10:38 01/05/24 10:38 01/05/24 10:38 01/05/24 10:38
Lab Results - Hematology
01/03/24 01/04/24
07:20 09:56
WBC 7.4 8.5
Lab Results - Chemistry
01/03/24 01/04/24 01/04/24
07:20 09:57 10:37
BUN 27 H Cancelled 42 H
Creatinine 0.7 Cancelled 0.7
Estimated Creat Clear 87 Cancelled 87
Microbiology Results
01/01/24 16:02 Blood Culture - Preliminary
Blood/Venous No Growth in 72 hours- Final report to follow
01/01/24 14:51 Blood Culture - Preliminary
Blood/Venous No Growth in 72 hours- Final report to follow
Therapeutic Drug Monitoring
Vancomycin Peak 25.2 ug/ml (18-26) 01/03/24 20:35
Vancomycin Trough 13.8 ug/ml (5-20) 01/04/24 09:56
Random Vancomycin 11.9 ug/ml 01/05/24 06:27
[2024-01-05] MEDS: VANCOCIN 275 MG IV (11:51)
--- NOTE | 2024-01-05 12:15 | W.PN.HOSP.TC ---
Today's Communication/Plan
-
.
Assessment / Plan
Assessment / Plan
Physical Exam
General: Chronically ill looking. No Apparent Distress
HEENT: Normocephalic, Moist mucous membranes and Atraumatic
Respiratory: Less rales. .
Cardiac: S1/S2.
GI: Soft, Non Tender, Non Distended and Normal Bowel Sounds;
Rectal: No rectal bleeding
Musculoskeletal: No Clubbing, No Cyanosis, less edema in legs.
Skin: No Rash
Neuro: Nonfocal/grossly intact
Psych: no agitation, calm.
# History of WILLEM Conner positive hemolytic anemia.
Normal haptoglobin now. Negative occult blood in stools X 2
Elevated reticulocyte count
s/p transfusion of 2 units
Continue folic acid
Continue prednisone , will start to wean down
Appreciate hematology input
# Sepsis (leukocytosis, tachycardia, borderline hypoxic, weakness) secondary to interstitial pneumonia in the setting of immunocompromise status from recent Rituxan
Acute hypoxic respiratory failure.
Still on oxygen. Repeat chest x ray showed worsening but clinically not worsening. Will do Chest CT.
Chest x ray Moderate diffuse bilateral interstitial pneumonia, significantly worsened when compared with the prior study
-COVID-negative, influenza negative
-Pro-Tay elevated 0.56. No leukocytosis.
-Cardiac BNP of 2100
-Lactic acid 4.9 then down to 1.6
Mildly elevated procalcitonin
Chest radiography showing interstitial pneumonia
Continue prednisone. Continue empiric antibiotics. MRSA screen is positive
- Negative blood cultures. Change to Doxy and cefdinir, MRSA screen is positive, blood culture remains negative.
Appreciate pulmonary input
# Acute on chronic heart failure with a preserved ejection fraction.
Less leg edema, better lung exam.
Echocardiogram showed LVEF 60 to 65%, mild LVH, stage II diastolic dysfunction. Mild MR, moderate aortic regurgitation, mild tricuspid regurgitation. Comparison to previous echocardiogram in October 2023, no significant change.
Elevated proBNP
c/w Lasix 40 mg daily
Appreciate cardiology input
# Hypokalemia, replaced
# Hyponatremia, History of hyponatremia associated seizure
Sodium 126 which is similar to previous blood work
No confusion
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 Continue sodium tablets and urea with the fluid restriction.s/p one dose of Tolvaptan.
#History of SVT
-Continue metoprolol
#Mild to moderate aortic regurgitation
Essential hypertension
#Recurrent left pleural effusion
Chest x ray on admission no significant left effusion.
#Hypothyroidism
-Continue levothyroxine
#Bullous pemphigoid
#History of CVA
-Continue statin & aspirin.
BPH
Diverticulosis
Chronic multilevel vertebral body endplate fractures
History of fatty liver
DNR/DNI
DVT prophylaxis�heparin
Cardiac diet
Total time spent to see the patient, examine the patient, review data and lab results, discuss treatment plan with patient, , nursing staff around 57 minutes
Anticipated Discharge: > 48 hours
Subjective/Interval History
-
Date of Service: January 05, 2024
HE feels better
no chest pain
Less cough
Objective Data
-
Vital Signs:
Vital Signs
Temp Pulse Resp BP Pulse Ox
97.6 F 113 18 117/68 90
01/05/24 10:38 01/05/24 10:38 01/05/24 10:38 01/05/24 10:38 01/05/24 10:38
I&O
01/04/24 01/05/24 01/06/24
06:59 06:59 06:59
Intake Total 2410 / 2410 2470 / 2470
Output Total 3340 / 3340 1050 / 1050
Balance -930 / -930 1420 / 1420
--- NOTE | 2024-01-05 15:02 | W.PN.PUL3 ---
Today's Communication / Plan
-
CT chest today
Continue current antibiotics, will consider narrowing down in the next 24 to 48 hours.
Monitor fever curve
Oral diuresis
Prednisone
Wean down oxygen
Assessment
-
78-year-old male with complex medical history including recurrent hyponatremia, autoimmune hemolytic anemia, hypertension bullous pemphigoid who presents with increased shortness of breath for few days. He was found to be anemic. We are asked to
comment on his pulmonary process
Bilateral patchy infiltrates
History of hemolytic anemia
Warm antibody autoimmune hemolysis
Rituxan therapy monthly
On chronic prednisone therapy
Recurrent left pleural effusion
s/p Thora 09/26, 09/28, 10/09 (cytology Neg)
Mild MR, moderate AR
PA pressure 35
Normal biventricular function
Hyponatremia/hypokalemia
Elevated lactate
Depressed IgG
Conditions present prior to admission
History of SVT
History of stroke
History of recurrent hyponatremia/SIADH
Chronic autoimmune hemolytic anemia
Hypertension
History of bullous pemphigoid
History of colon cancer 2018
Hypothyroidism
BPH
Diverticulosis
Plan/recommendations
Salient features include chronic steroid therapy, recent Rituxan therapy 1 month ago, now presents with progressive shortness of breath, lower extreme edema and chest x-ray suggestive of bilateral infiltrates
History of recurrent left pleural effusion noted, drained x 3 back in September and October 2023, has not recurred
Anemia noted, specifically in the setting of lack of obvious hemolysis per Hematology correspondence
At risk for diffuse alveolar hemorrhage given autoimmune process
-
At this time, patient appears to be without complaints but remains on nasal cannula
Requiring 2 L supplemental oxygen.
Status post transfusion, hemoglobin now 10.6
Negative fluid balance-cardiology has signed off.Now on oral Lasix
Home oxygen assessment tomorrow morning.
Chest x-ray- persistent bilateral infiltrates
CT chest will be obtained as the patient is immunosuppressed.
-
For now we will continue with empiric antibiotics- Zosyn/Vanco.
Hopefully can narrow down antibiotics in the next 24 hours.
Follow-up blood cultures
MRSA screen positive.
All other cultures negative.
-
Echocardiogram normal with increased ProBNP on admission.
s/p diuretics.
Patient with complex volume status, difficulty to determine whether intermittently dry
patient does have chronic lower extremity swelling which is improved since admission.
-
Differential also includes opportunistic infection, pneumocystis, fungal infection.
Less likely as he appears to be improving.
-
Trend hemoglobin, currently stable.
Patient at risk for diffuse alveolar hemorrhage
-
Depending on clinical progression, Bronch/BAL might be needed.
-
Hematology is also following
Bone marrow biopsy has been considered in the past
Assess oxygen needs prior DC. Patient not on home oxygen
Wean oxygen as able, maintain saturation greater than 89%
Will continue to follow
Subjective Data
-
Date of Service:
Date of Service: January 05, 2024
Chief Complaint: Dyspnea Follow Up
Subjective:
No new events overnight.
Remains on 2 L supplemental ox
No mention of hemoptysis or significant phlegm production.
Review of Systems
General: Fever (n)
Cardiopulmonary: Dyspnea and Cough (n)
GI: Abdominal Pain (n) and Nausea (n)
Neuro: Headache (n)
Objective Data
Data Reviewed
Vital Signs / I&O / Oxygen:
Vital Signs
Temp Pulse Resp BP Pulse Ox
97.6 F 113 18 117/68 90
01/05/24 10:38 01/05/24 10:38 01/05/24 10:38 01/05/24 10:38 01/05/24 10:38
Intake and Output
01/04/24 01/05/24 01/06/24
06:59 06:59 06:59
Intake Total 2410 / 2410 2470 / 2470
Output Total 3340 / 3340 1050 / 1050
Balance -930 / -930 1420 / 1420
SaO2 90
Nasal Cannula flow liters per 2
minute
Physical Exam
General: Comfortable
HEENT: Normocephalic and Anicteric
Cardiovascular: S1-S2, Regular Rhythm, Murmur (n), Rub (n), Other (Trace edema) and Other (Mild mottling of lower extremities)
Respiratory: Wheeze (n), Crackles (n), Rhonchi (n) and Other (Decreased at base, bronchial)
GI: Soft, Non Distended and Non Tender
Neurology: Awake, Alert and No Motor Deficits (Able to sit up without assistance)
Skin: Jaundice (n), Rash (n) and Bruising (n)
Labs/Micro/Reports
Lab Data
01/04/24 09:56
01/04/24 10:37
Microbiology
01/01/24 14:51 Blood/Venous Blood Culture - Preliminary
No Growth in 4 days- Final report to follow
01/01/24 16:02 Blood/Venous Blood Culture - Preliminary
No Growth in 72 hours- Final report to follow
[2024-01-05] MEDS: LIPITOR 40 MG PO (17:54)
[2024-01-05] MEDS: FLUSH (NSS) 1 FLUSH IV (22:02)
[2024-01-06 03:19] VITALS: BP 133/67
[2024-01-06] MEDS: ZOSYN 50 IV ×4 (04:49→21:54)
[2024-01-06 06:00] VITALS: BMI 26.2
[2024-01-06] MEDS: SYNTHROID 75 MCG PO (06:30)
[2024-01-06 06:51] LABS: Hematocrit 28.6 % (39.0-52.0); Hemoglobin 9.2 g/dL (13.0-18.0); Mean Corp Hgb Conc. 32.2 g/dL (33.0-37.0); Mean Corpuscular Hgb 32.1 pg (27.0-31.0); Mean Corpuscular Volume 99.7 fL (80.0-94.0); Mean Platelet Volume 10.2 fL (7.4-10.4); Platelet Count 199 10^3/uL (130-400); Red Blood Cell Count 2.87 10^6/uL (4.70-6.10); Red Cell Dist. Width 17.4 % (11.5-14.5); White Blood Cell Count 5.7 10^3/uL (4.8-10.8)
[2024-01-06 07:14] LABS: Vancomycin Random 9.6 ug/ml
[2024-01-06 07:46] VITALS: BP 108/65
[2024-01-06 08:09] LABS: Blood Urea Nitrogen 41 mg/dl (9-20); Calcium 8.7 mg/dl (8.4-10.2); Carbon Dioxide 22 mmol/L (22-30); Chloride 103 mmol/L (98-107); Estimated Creatinine Clearance 76 ml/min; Glucose 84 mg/dl (70-99); Magnesium 2.4 mg/dl (1.6-2.3); Potassium 4.2 mmol/L (3.5-5.1); Sodium 132 mmol/L (135-145); eGFR > 60.00
[2024-01-06] MEDS: URE-NA 15 GRAMS PO ×2 (08:55→19:39)
[2024-01-06] MEDS: TOPROL XL 25 MG PO ×2 (08:55→19:39)
[2024-01-06] MEDS: DELTASONE 50 MG PO (08:55)
[2024-01-06] MEDS: VITAMIN D3 (cholecalciferol) 25 MCG PO (08:55)
[2024-01-06] MEDS: HEPARIN 5000 UNITS SC ×2 (08:55→19:39)
[2024-01-06] MEDS: PROTONIX 40 MG PO (08:55)
[2024-01-06] MEDS: ASPIR LOW (ENTERIC COATED) 81 MG PO (08:55)
[2024-01-06] MEDS: KCL 20 MEQ PO ×2 (08:55→19:39)
[2024-01-06] MEDS: LASIX 40 MG PO ×2 (08:55→19:39)
[2024-01-06] MEDS: VITAMIN B-12 1000 MCG PO (08:55)
[2024-01-06] MEDS: FOLVITE 1 MG PO (08:55)
[2024-01-06] MEDS: MIRALAX PO (08:56)
[2024-01-06] MEDS: SODIUM CHLORIDE 1 GRAM PO ×2 (08:59→19:39)
--- NOTE | 2024-01-06 09:32 | PTCARENOTE ---
DR Watson at bedside and took a look at pt's right foot. States he has bullous pemphigoid which he has had in the past. 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 No new orders as she says it is dry. Pt states this happens and then it peels off.
--- NOTE | 2024-01-06 09:34 | PHA.VAN.FU ---
Vancomycin Assessment / Plan
- Assessment
Renal Function: Stable (BUN still elevated)
WBC's are: WNL
In the past 24 hrs, patient has been: Afebrile
Concomitant Antimicrobials: pip/tazo
- Assessment - Therapeutic Drug Monitoring
Random Level: 9.6 ~ 18 hours post 1250 mg dose
- Dosing Plan
Continue: dose by level for now
Dosing by Level: Re-dose today (1500 mg x 1 dose)
- Monitoring Plan
Random Level: repeat random level am 01/07/24
- Follow Up
Pharmacy will continue to follow.
Vancomycin Follow UP
- -
Patient Age: 78
Patient Sex: Male
Vancomycin Day #: 6
Indication: Pulmonary/Respiratory
Requesting Provider: Dr. Chapman
Pertinent Antimicrobial Allergies:
no pertinent antibiotic allergies
Height / Weight:
Height 5 ft 9 in
Actual Weight 80.343 kg
Pertinent Past Medical History: Warm antibody autoimmune hemolytic anemia (rituximab)
- Vital Signs / Lab Results
Temp Pulse Resp BP Pulse Ox
98.1 F 77 16 108/65 90
01/06/24 07:46 01/06/24 07:46 01/06/24 07:46 01/06/24 07:46 01/06/24 07:46
Lab Results - Hematology
01/04/24 01/06/24
09:56 06:31
WBC 8.5 5.7
Lab Results - Chemistry
01/04/24 01/04/24 01/06/24
09:57 10:37 06:31
BUN Cancelled 42 H 41 H
Creatinine Cancelled 0.7 0.8
Estimated Creat Clear Cancelled 87 76
Microbiology Results
01/01/24 16:02 Blood Culture - Preliminary
Blood/Venous No Growth in 4 days- Final report to follow
01/01/24 14:51 Blood Culture - Preliminary
Blood/Venous No Growth in 4 days- Final report to follow
Therapeutic Drug Monitoring
Vancomycin Peak 25.2 ug/ml (18-26) 01/03/24 20:35
Vancomycin Trough 13.8 ug/ml (5-20) 01/04/24 09:56
Random Vancomycin 9.6 ug/ml 01/06/24 06:31
[2024-01-06] MEDS: PROCTOFOAM-HC FOAM 10 GM RECTAL (10:12)
[2024-01-06 10:33] VITALS: BP 135/76
[2024-01-06] MEDS: VANCOCIN 300 MG IV (10:56)
[2024-01-06] MEDS: VANCOCIN 300 ML IV (10:56)
--- NOTE | 2024-01-06 11:16 | CM ---
Patient seen bedside with . CM discussed PT/OT recommendations of home health, patient and declining, patient does not feel he needs VN upon discharge. Patient remains on O2, CM will watch for home O2 evaluation. CM will continue to follow
for discharge planning needs.
Plan; home no needs, declining VN, watch for home O2 evaluation.
--- NOTE | 2024-01-06 12:01 | W.PN.HOSP.TC ---
Today's Communication/Plan
-
.
Assessment / Plan
Assessment / Plan
Physical Exam
General: Chronically ill looking. No Apparent Distress
HEENT: Normocephalic, Moist mucous membranes and Atraumatic
Respiratory: Less rales. .
Cardiac: S1/S2.
GI: Soft, Non Tender, Non Distended and Normal Bowel Sounds;
Rectal: No rectal bleeding
Musculoskeletal: No Clubbing, No Cyanosis, less edema in legs.
Skin: No Rash
Neuro: Nonfocal/grossly intact
Psych: no agitation, calm.
# hemorrhoidal bleeding , mild in severity
will do hydrocortisone suppository.
# History of WILLEM Conner positive hemolytic anemia.
Normal haptoglobin now. Negative occult blood in stools X 2
Elevated reticulocyte count
s/p transfusion of 2 units
Continue folic acid
Continue prednisone , Starting to wean down
Appreciate hematology input
# Sepsis (leukocytosis, tachycardia, borderline hypoxic, weakness) secondary to interstitial pneumonia in the setting of immunocompromise status from recent Rituxan
Acute hypoxic respiratory failure.
Still on oxygen. Repeat chest x ray showed worsening but clinically not worsening. CT chest showing bilateral ground-glass opacities nonspecific findings, possible pulmonary edema
Chest x ray Moderate diffuse bilateral interstitial pneumonia, significantly worsened when compared with the prior study
-COVID-negative, influenza negative
-Pro-Tay elevated 0.56. No leukocytosis.
-Cardiac BNP of 2100
-Lactic acid 4.9 then down to 1.6
Mildly elevated procalcitonin
Chest radiography showing interstitial pneumonia
Continue prednisone. Continue empiric antibiotics. MRSA screen is positive
- Negative blood cultures. Change to Doxy and cefdinir, MRSA screen is positive, blood culture remains negative.
Appreciate pulmonary input
# Acute on chronic heart failure with a preserved ejection fraction.
Less leg edema, better lung exam.
Echocardiogram showed LVEF 60 to 65%, mild LVH, stage II diastolic dysfunction. Mild MR, moderate aortic regurgitation, mild tricuspid regurgitation. Comparison to previous echocardiogram in October 2023, no significant change.
Elevated proBNP
c/w Lasix 40 mg , change to BID for short time
Appreciate cardiology input
# Hypokalemia, replaced
# Hyponatremia, History of hyponatremia associated seizure
Sodium stable 132.
No confusion
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 Continue sodium tablets and urea with the fluid restriction. S/p one dose of Tolvaptan 01/02.
#History of SVT
-Continue metoprolol
#Mild to moderate aortic regurgitation
Essential hypertension
#Recurrent left pleural effusion
Chest x ray on admission no significant left effusion, CT showed decreasing volume.
#Hypothyroidism
-Continue levothyroxine
#Bullous pemphigoid
#History of CVA
-Continue statin & aspirin.
BPH
Diverticulosis
Chronic multilevel vertebral body endplate fractures
History of fatty liver
DNR/DNI
DVT prophylaxis�heparin
Cardiac diet
Total time spent to see the patient, examine the patient, review data and lab results, discuss treatment plan with patient, , consultants, nursing staff around 57 minutes
Anticipated Discharge: > 48 hours
Subjective/Interval History
-
Date of Service: January 06, 2024
hemorrhoid bleeding this morning
No worsening sob
No chest pain
Objective Data
-
Labs:
Laboratory Results
01/06/24
06:31
WBC 5.7
Hgb 9.2 L
Hct 28.6 L
Plt Count 199
Sodium 132 L
Potassium 4.2
Chloride 103
Carbon Dioxide 22
BUN 41 H
Creatinine 0.8
Glucose 84
Calcium 8.7
Vital Signs:
Vital Signs
Temp Pulse Resp BP Pulse Ox
98.5 F 84 18 135/76 91
01/06/24 10:33 01/06/24 10:33 01/06/24 10:33 01/06/24 10:33 01/06/24 10:33
I&O
01/05/24 01/06/24 01/07/24
06:59 06:59 06:59
Intake Total 2470 / 2470 1230 / 1230
Output Total 1050 / 1050 2300 / 2300
Balance 1420 / 1420 -1070 / -1070
--- NOTE | 2024-01-06 14:00 | PTCARENOTE ---
Addendum entered by Jocelyne Dallas RN 01/06/24 17:38:
pt and wanted him placed back on 2LO2 as they felt 4 was too much.
Addendum entered by Jocelyne Dallas RN 01/06/24 16:17:
Respiratory therapist did home 02 test. pt increased to 4L02.
Original Note:
Pt called RN in to the room to make aware that bed was wet. IV was leaking. Approximately half of his vanco infusion leaked in to the bed. Pharmacy was made aware and stated that they will check a vanco level tomorrow and will make a note for
pharmacy so they are aware if level comes back low. New iv site started by IV nurse. pt and his updated.
[2024-01-06 15:45] VITALS: BP 120/80
--- NOTE | 2024-01-06 17:07 | W.PN.PUL3 ---
Today's Communication / Plan
-
Continue prednisone for now
Diuretics
Continue antibiotics
Every situation
Continue oxygen supplementation
Ultimately may need bronchoscopy with BAL.
Assessment
-
78-year-old male with complex medical history including recurrent hyponatremia, autoimmune hemolytic anemia, hypertension bullous pemphigoid who presents with increased shortness of breath for few days. He was found to be anemic. We are asked to
comment on his pulmonary process
Bilateral patchy infiltrates
History of hemolytic anemia
Warm antibody autoimmune hemolysis
Rituxan therapy monthly
On chronic prednisone therapy
Recurrent left pleural effusion
s/p Thora 09/26, 09/28, 10/09 (cytology Neg)
Mild MR, moderate AR
PA pressure 35
Normal biventricular function
Hyponatremia/hypokalemia
Elevated lactate
Depressed IgG
Conditions present prior to admission
History of SVT
History of stroke
History of recurrent hyponatremia/SIADH
Chronic autoimmune hemolytic anemia
Hypertension
History of bullous pemphigoid
History of colon cancer 2018
Hypothyroidism
BPH
Diverticulosis
Plan/recommendations
Salient features include chronic steroid therapy, recent Rituxan therapy 1 month ago, now presents with progressive shortness of breath, lower extreme edema and chest x-ray suggestive of bilateral infiltrates
History of recurrent left pleural effusion noted, drained x 3 back in September and October 2023, has not recurred
Anemia noted, specifically in the setting of lack of obvious hemolysis per Hematology correspondence
At risk for diffuse alveolar hemorrhage given autoimmune process
-
Remains on supplemental oxygen.2 L of supplemental oxygen, no worse.
-
Status post transfusion, hemoglobin now stable posttransfusion.
Negative fluid balance-cardiology has signed off.Now on oral Lasix
-
Chest x-ray- persistent bilateral infiltrates
CT chest 01/06/2024: Reviewed,
Showed widespread bilateral predominantly centrally located groundglass opacities new compared to prior study. Infectious, pulmonary edema, inflammatory. Tiny right and left pleural effusion.
-
Possible infectious etiology: Afebrile without leukocytosis.
For now we will continue with empiric antibiotics- Zosyn/Vanco. Would complete total 7 days of antibiotics.
Follow-up blood cultures
MRSA screen positive.
All other cultures negative.
Hopefully can narrow down antibiotics soon
-
Echocardiogram normal with increased ProBNP on admission.
Status post IV diuretic.
On oral diuretics. Twice a day.
Patient with complex volume status, difficulty to determine whether intermittently dry
patient does have chronic lower extremity swelling which is improved since admission.
-
Differential also includes opportunistic infection, pneumocystis, fungal infection.
Less likely as he appears to be improving.
Will continue to follow, if there is no ongoing improvement or if there is signs and symptoms of infection despite antibiotics then bronchoscopy with BAL will be needed.
-
For hemolytic anemia patient remains on prednisone 40 mg. No evidence for ongoing hemolysis per hematology.
Hematology has evaluated the patient this admission.
Patient received 2 units of packed red blood cells this admission with improvement in hemoglobin.
Trend hemoglobin, currently stable.
-
Patient at risk for diffuse alveolar hemorrhage-current hemoglobin is stable. Less likely. Will need to continue to follow, if there is worsening anemia and no explanation for dropping hemoglobin then bronchoscopy with BAL to rule out DAH might be
needed.
-
Inflammatory pneumonitis from Rituxan therapy also possibility. Continue steroids for now.
-
Depending on clinical progression, Bronch/BAL might be needed. Continue to follow for now as he is clinically improving.
-
Assess oxygen needs prior DC. Patient not on home oxygen
Wean oxygen as able, maintain saturation greater than 89%
Will continue to follow
Subjective Data
-
Date of Service:
Date of Service: January 06, 2024
Chief Complaint: Dyspnea Follow Up
Objective Data
Data Reviewed
Vital Signs / I&O / Oxygen:
Vital Signs
Temp Pulse Resp BP Pulse Ox
98.3 F 76 16 120/80 95
01/06/24 15:45 01/06/24 15:45 01/06/24 15:45 01/06/24 15:45 01/06/24 15:45
Intake and Output
01/05/24 01/06/24 01/07/24
06:59 06:59 06:59
Intake Total 2470 / 2470 1230 / 1230
Output Total 1050 / 1050 2300 / 2300
Balance 1420 / 1420 -1070 / -1070
SaO2 95
Nasal Cannula flow liters per 2
minute
Physical Exam
General: Comfortable
HEENT: Normocephalic and Anicteric
Cardiovascular: S1-S2, Regular Rhythm, Murmur (n), Rub (n), Other (Trace edema) and Other (Mild mottling of lower extremities)
Respiratory: Wheeze (n), Crackles (n), Rhonchi (n) and Other (Decreased at base, bronchial)
GI: Soft, Non Distended and Non Tender
Neurology: Awake, Alert and No Motor Deficits (Able to sit up without assistance)
Skin: Jaundice (n), Rash (n) and Bruising (n)
Labs/Micro/Reports
Lab Data
01/06/24 06:31
01/06/24 06:31
Microbiology
01/01/24 16:02 Blood/Venous Blood Culture - Final
No Growth - Final Report
01/01/24 14:51 Blood/Venous Blood Culture - Final
No Growth - Final Report
[2024-01-06] MEDS: LIPITOR 40 MG PO (17:13)
[2024-01-06 19:38] VITALS: BP 117/72
[2024-01-06 23:40] VITALS: BP 121/73
[2024-01-07 03:23] VITALS: BP 119/76
[2024-01-07] MEDS: ZOSYN 50 IV ×4 (04:47→22:00)
[2024-01-07] MEDS: SYNTHROID 75 MCG PO (05:34)
[2024-01-07 06:00] VITALS: BMI 25.5
[2024-01-07 06:17] LABS: Hematocrit 26.6 % (39.0-52.0); Hemoglobin 8.7 g/dL (13.0-18.0); Mean Corp Hgb Conc. 32.7 g/dL (33.0-37.0); Mean Corpuscular Hgb 31.6 pg (27.0-31.0); Mean Corpuscular Volume 96.7 fL (80.0-94.0); Mean Platelet Volume 10.4 fL (7.4-10.4); Platelet Count 187 10^3/uL (130-400); Red Blood Cell Count 2.75 10^6/uL (4.70-6.10); Red Cell Dist. Width 17.2 % (11.5-14.5); White Blood Cell Count 4.2 10^3/uL (4.8-10.8)
[2024-01-07 06:31] LABS: Vancomycin Random 10.3 ug/ml
[2024-01-07 06:49] LABS: Blood Urea Nitrogen 45 mg/dl (9-20); Calcium 8.4 mg/dl (8.4-10.2); Carbon Dioxide 23 mmol/L (22-30); Chloride 102 mmol/L (98-107); Estimated Creatinine Clearance 76 ml/min; Glucose 90 mg/dl (70-99); Potassium 3.8 mmol/L (3.5-5.1); Sodium 133 mmol/L (135-145); eGFR > 60.00
[2024-01-07 07:00] VITALS: BP 115/80
[2024-01-07] MEDS: DELTASONE 50 MG PO (08:47)
[2024-01-07] MEDS: KCL 20 MEQ PO ×2 (08:47→20:24)
[2024-01-07] MEDS: PROTONIX 40 MG PO (08:47)
[2024-01-07] MEDS: ASPIR LOW (ENTERIC COATED) 81 MG PO (08:47)
[2024-01-07] MEDS: SODIUM CHLORIDE 1 GRAM PO ×2 (08:47→20:24)
[2024-01-07] MEDS: TOPROL XL 25 MG PO ×2 (08:47→20:24)
[2024-01-07] MEDS: VITAMIN B-12 1000 MCG PO (08:48)
[2024-01-07] MEDS: VITAMIN D3 (cholecalciferol) 25 MCG PO (08:48)
[2024-01-07] MEDS: HEPARIN 5000 UNITS SC ×2 (08:48→20:24)
[2024-01-07] MEDS: URE-NA 15 GRAMS PO ×2 (08:48→20:25)
[2024-01-07] MEDS: LASIX 40 MG PO (08:48)
[2024-01-07] MEDS: FOLVITE 1 MG PO (08:48)
[2024-01-07] MEDS: PROCTOFOAM-HC FOAM RECTAL ×2 (08:50→09:03)
[2024-01-07] MEDS: MIRALAX PO (08:50)
--- NOTE | 2024-01-07 09:22 | PHA.VAN.FU ---
Vancomycin Assessment / Plan
- Assessment
Renal Function: Stable (BUN elevated)
WBC's are: WNL
In the past 24 hrs, patient has been: Afebrile
Concomitant Antimicrobials: Piperacillin/Tazobactam
- Assessment - Therapeutic Drug Monitoring
Random Level: 10.3
- Dosing Plan
Dosing by Level: Re-dose today (1250mg)
- Monitoring Plan
Random Level: 01/07 @0600
- Follow Up
Pharmacy will continue to follow.
Vancomycin Follow UP
- -
Patient Age: 78
Patient Sex: Male
Vancomycin Day #: 7
Indication: Pulmonary/Respiratory
Requesting Provider: Dr. Chapman
Pertinent Antimicrobial Allergies:
no pertinent antibiotic allergies
Height / Weight:
Height 5 ft 9 in
Actual Weight 78.273 kg
Pertinent Past Medical History: Warm antibody autoimmune hemolytic anemia (rituximab)
- Vital Signs / Lab Results
Temp Pulse Resp BP Pulse Ox
98.1 F 60 17 113/55 95
01/07/24 07:00 01/07/24 08:47 01/07/24 07:00 01/07/24 08:48 01/07/24 07:00
Lab Results - Hematology
01/04/24 01/06/24 01/07/24
09:56 06:31 05:28
WBC 8.5 5.7 4.2 L
Lab Results - Chemistry
01/04/24 01/04/24 01/06/24
09:57 10:37 06:31
BUN Cancelled 42 H 41 H
Creatinine Cancelled 0.7 0.8
Estimated Creat Clear Cancelled 87 76
01/07/24
05:28
BUN 45 H
Creatinine 0.8
Estimated Creat Clear 76
Microbiology Results
01/01/24 16:02 Blood Culture - Final
Blood/Venous No Growth - Final Report
01/01/24 14:51 Blood Culture - Final
Blood/Venous No Growth - Final Report
Therapeutic Drug Monitoring
Vancomycin Peak 25.2 ug/ml (18-26) 01/03/24 20:35
Vancomycin Trough 13.8 ug/ml (5-20) 01/04/24 09:56
Random Vancomycin 10.3 ug/ml 01/07/24 05:28
--- NOTE | 2024-01-07 10:13 | W.PN.HOSP.TC ---
Today's Communication/Plan
-
Continue antibiotics
May need bronchoscopy
AM labs
Lasix changed to 40 once daily
Appreciate pulmonary and hematology
Assessment / Plan
Assessment / Plan
Physical Exam
General: Chronically ill looking.
HEENT: Normocephalic, Moist mucous membranes and Atraumatic
Respiratory: Crackles bilaterally.
Cardiac: S1/S2.
GI: Soft, Non Tender, Non Distended and Normal Bowel Sounds
Musculoskeletal: No Cyanosis, less edema in legs.
Skin: Warm. Dry.
Neuro: Nonfocal/grossly intact
Psych: no agitation, calm.

Assessment/Plan
78 male came in with shortness of breath and anemia. History of hemolytic anemia but testing not compatible with hemolysis event. As of January 07, 2024 he received 2 units of blood - he needed blood from [facility] due to antibodies. His hemoglobin
stable as of January 07, 2024. Prednisone is causing him significant muscle weakness/myopathy in lower extremity. Diagnosed with possible bilateral pneumonia. On IV antibiotics. CT chest done and possibly also pulmonary edema. IV Lasix was given.
Oncology/pulmonary/cardiology are seeing him.
# hemorrhoidal bleeding, mild in severity
-Hydrocortisone suppository
# History of WILLEM Conner positive hemolytic anemia.
Warm antibody autoimmune hemolysis
Rituxan therapy monthly
On chronic prednisone therapy
s/p transfusion of 2 units
Continue folic acid
Continue prednisone, starting to wean down -- will check with hematology about steroid taper regimen
Appreciate hematology input
Transfuse w/ least incompatible blood from the [facility] as needed to maintain Hgb >7
# Sepsis (leukocytosis, tachycardia, borderline hypoxic, weakness) secondary to interstitial pneumonia in the setting of immunocompromise status from recent Rituxan
Acute hypoxic respiratory failure.
Bilateral patchy infiltrates
Recurrent left pleural effusion
-COVID-negative, influenza negative
-Pro-Tay elevated 0.56. No leukocytosis.
-Cardiac BNP of 2100
-Lactic acid 4.9 then down to 1.6
Mildly elevated procalcitonin
Chest radiography showing interstitial pneumonia
Continue prednisone. Continue empiric antibiotics. MRSA screen is positive
- Negative blood cultures.
-CT chest 01/06/2024 - showed widespread bilateral predominantly centrally located groundglass opacities new compared to prior study.
-Appreciate pulmonary input
-Since differential diagnosis also includes opportunistic infection, pneumocystis, fungal infection, and inflammatory pneumonitis for Rituxan - will consider ID consult
-Also if concerning for opportunistic infection, pneumocystis, fungal infection, then bronchoscopy with BAL will be needed
-At risk for diffuse alveolar hemorrhage given autoimmune process
# Acute on chronic heart failure with a preserved ejection fraction.
Less leg edema, better lung exam.
Echocardiogram showed LVEF 60 to 65%, mild LVH, stage II diastolic dysfunction. Mild MR, moderate aortic regurgitation, mild tricuspid regurgitation. Comparison to previous echocardiogram in October 2023, no significant change.
Elevated proBNP
Status post IV Lasix
c/w Lasix 40 mg PO daily
Appreciate cardiology input
# Hypokalemia, replaced
# Hyponatremia, History of hyponatremia associated seizure
# History of recurrent hyponatremia/SIADH
Sodium stable in the low 130s
No confusion
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 Continue sodium tablets and urea with the fluid restriction. S/p one dose of Tolvaptan 01/02.
#History of SVT
-Continue metoprolol
#Mild to moderate aortic regurgitation
#Essential hypertension
#Recurrent left pleural effusion
Chest x ray on admission no significant left effusion, CT showed decreasing volume.
#Hypothyroidism
-Continue levothyroxine
#Bullous pemphigoid
#History of CVA
-Continue statin & aspirin.
BPH
Diverticulosis
Chronic multilevel vertebral body endplate fractures
History of fatty liver
History of bullous pemphigoid
History of colon cancer 2019
Hypothyroidism
BPH
Diverticulosis
DNR/DNI
DVT prophylaxis�heparin
Cardiac diet
Anticipated Discharge: > 48 hours
Subjective/Interval History
-
Date of Service: January 07, 2024
Patient was seen and examined. He reported feeling uneasy about the many times he has had to urinate with the Lasix. He also reported feeling exhausted.
Objective Data
-
Labs:
Laboratory Results
01/07/24
05:28
WBC 4.2 L
Hgb 8.7 L
Hct 26.6 L
Plt Count 187
Sodium 133 L
Potassium 3.8
Chloride 102
Carbon Dioxide 23
BUN 45 H
Creatinine 0.8
Glucose 90
Calcium 8.4
Vital Signs:
Vital Signs
Temp Pulse Resp BP Pulse Ox
98.1 F 60 17 113/55 95
01/07/24 07:00 01/07/24 08:47 01/07/24 07:00 01/07/24 08:48 01/07/24 07:00
I&O
01/06/24 01/07/24 01/08/24
06:59 06:59 06:59
Intake Total 1230 / 1230 2280 / 2280
Output Total 2300 / 2300 2600 / 2600
Balance -1070 / -1070 -320 / -320
--- NOTE | 2024-01-07 10:48 | W.PN.PUL3 ---
Today's Communication / Plan
-
Continue prednisone with slow taper
Diuretics
Continue antibiotics
Continue oxygen supplementation
Currently there is no need for bronchoscopy with BAL as pt continues to improve. He will need follow up CT chest in 6 weeks to follow GGO changes to resolution.
Assessment
-
78-year-old male with complex medical history including recurrent hyponatremia, autoimmune hemolytic anemia, hypertension bullous pemphigoid who presents with increased shortness of breath for few days. He was found to be anemic. We are asked to
comment on his pulmonary process
Bilateral patchy infiltrates
History of hemolytic anemia
Warm antibody autoimmune hemolysis
Rituxan therapy monthly
On chronic prednisone therapy
Recurrent left pleural effusion
s/p Thora 09/26, 09/28, 10/09 (cytology Neg)
Mild MR, moderate AR
PA pressure 35
Normal biventricular function
Hyponatremia/hypokalemia
Elevated lactate
Depressed IgG
Conditions present prior to admission
History of SVT
History of stroke
History of recurrent hyponatremia/SIADH
Chronic autoimmune hemolytic anemia
Hypertension
History of bullous pemphigoid
History of colon cancer 2018
Hypothyroidism
BPH
Diverticulosis
Plan/recommendations
Salient features include chronic steroid therapy, recent Rituxan therapy 1 month ago, now presents with progressive shortness of breath, lower extremity edema and chest x-ray suggestive of bilateral infiltrates
History of recurrent left pleural effusion noted, drained x 3 back in September and October 2023, has not recurred
Anemia noted, specifically in the setting of lack of obvious hemolysis per Hematology correspondence
At risk for diffuse alveolar hemorrhage given autoimmune process
-
Remains on supplemental oxygen.2 L of supplemental oxygen, no worse.
-
Status post transfusion on 01/02 + 01/04/2024, hemoglobin now stable posttransfusion.
Negative fluid balance-cardiology has signed off.Now on oral Lasix BID
-
Chest x-ray- persistent bilateral infiltrates
CT chest 01/06/2024: Reviewed,
Showed widespread bilateral predominantly centrally located groundglass opacities new compared to prior study. Infectious, pulmonary edema, inflammatory. Tiny right and left pleural effusion.
-
Possible infectious etiology: Afebrile without leukocytosis.
For now we will continue with empiric antibiotics- Zosyn/Vanco. Would complete total 7 days of antibiotics.
Follow-up blood cultures
MRSA screen positive.
All other cultures negative.
Hopefully can narrow down antibiotics soon
-
Echocardiogram normal with increased ProBNP on admission.
Status post IV diuretic.
On oral diuretics. Twice a day.
Patient with complex volume status, difficulty to determine whether intermittently dry
patient does have chronic lower extremity swelling which has improved since admission.
-
Differential also includes opportunistic infection, pneumocystis, fungal infection.
Less likely as he is improving.
Will continue to follow, if there is no ongoing improvement or if there is signs and symptoms of infection despite antibiotics then bronchoscopy with BAL will be needed --> will defer BAL for now as he definitely seems to be improving
-
For hemolytic anemia patient remains on prednisone 40 mg. No evidence for ongoing hemolysis per hematology.
Hematology has evaluated the patient this admission.
Patient received 2 units of packed red blood cells this admission with improvement in hemoglobin.
Trend hemoglobin, currently stable.
-
Patient at risk for diffuse alveolar hemorrhage-current hemoglobin is stable. Less likely. Will need to continue to follow, if there is worsening anemia and no explanation for dropping hemoglobin then bronchoscopy with BAL to rule out DAH might be
needed.
-
Inflammatory pneumonitis from Rituxan therapy also possibility. Continue steroids for now with prednisone and slow taper.
-
Depending on clinical progression, Bronch/BAL might be needed. Continue to follow for now as he is clinically improving, and there is no current indication for BAL
-
Assess oxygen needs prior DC. Patient not on home oxygen
Wean oxygen as able, maintain saturation greater than 89%
Will continue to follow
Patient was seen and evaluated on 01/07/2024.
Subjective Data
-
Date of Service:
Date of Service: January 07, 2024
Chief Complaint: Pulmonary Follow Up and Dyspnea Follow Up
Subjective:
Pt seen today - at bedside. He feels well. Eager to go home. He is on 2L/min NC. He denies CP, RENEE, abd pain, f/c.
Review of Systems
General: Other (neg unless mentioned above)
Objective Data
Data Reviewed
Vital Signs / I&O / Oxygen:
Vital Signs
Temp Pulse Resp BP Pulse Ox
98.1 F 60 17 113/55 95
01/07/24 07:00 01/07/24 08:47 01/07/24 07:00 01/07/24 08:48 01/07/24 07:00
Intake and Output
01/06/24 01/07/24 01/08/24
06:59 06:59 06:59
Intake Total 1230 / 1230 2280 / 2280
Output Total 2300 / 2300 2600 / 2600
Balance -1070 / -1070 -320 / -320
SaO2 95
Nasal Cannula flow liters per 2
minute
Physical Exam
General: Comfortable
HEENT: Normocephalic and Anicteric
Cardiovascular: S1-S2, Murmur (n), Rub (n) and Peripheral Edema (+2 LE pitting edema)
Respiratory: Wheeze (n), Crackles (bibasilar), Rhonchi (n) and Non-Labored Respirations
GI: Soft, Non Distended and Non Tender
Neurology: Awake, Alert and Tremors (n)
Skin: Warm, Dry, Jaundice (n), Rash (n) and Bruising (n)
Labs/Micro/Reports
Lab Data
01/07/24 05:28
01/07/24 05:28
Microbiology
01/01/24 16:02 Blood/Venous Blood Culture - Final
No Growth - Final Report
01/01/24 14:51 Blood/Venous Blood Culture - Final
No Growth - Final Report
[2024-01-07] MEDS: VANCOCIN 275 MG IV (10:51)
[2024-01-07 11:15] VITALS: BP 120/71
[2024-01-07 15:00] VITALS: BP 135/72
[2024-01-07] MEDS: LIPITOR 40 MG PO (17:44)
--- NOTE | 2024-01-07 18:32 | W.PN.ONC2 ---
Today's Communication / Plan
-
Suggest requesting inpt bone marrow biopsy if Hgb<8 tomorrow.
Consider empiric therapy for opportunistic infection in pt who has been on prednisone 60 mg daily for months.
Impression
Impression
Hyperproliferative (elevated reticulocyte count) recurrent acute anemia
History of WILLEM Conner positive hemolytic anemia
SIADH/hyponatremia
Plan
Plan
Pt with a degree of continued hemolysis as evidenced by elevated indirect bilirubin, LDH elevation, retic elevation.
He has been on prednisone for months now, it would be hard to diagnose an underlying lymphoproliferative disorder at this point but may need amrrow to eval for myeloid disorder.
Pt is at very high risk for opportunistic infection. He has not been on PCP prophylaxis. Consider empiric therapy for PCP given pulmonary infiltrates. He is currently ill-appearing and this has not been his baseline.
Inpt bone marrow biopsy if Hgb<8 tomorrow.
Consider ID consult.
Consider GI consult, could have peptic ulcer disease in setting of ongoing steroid.
Ordered flow cytometry for PNH which would require specific treatment.
Subjective/Objective
Chief Complaint
Heme/Onc follow up of anemia
Subjective
78 yo man well-known to me from outpatient setting for history of hemolytic anemia. He has been on prednisone 60 mg daily for few months now. He also got Rituxan weekly x 4 in November. Since starting Rituxan, he has not been requiring transfusions
between November 02 and January 02 but there had not been improvement in his hemoglobin. Complains of increasing weakness. concerned that patient is failing. In ED, found to have diffuse bilateral infiltrates. Although haptoglobin detectable, his
antibody screen remains positive, LDH is elevated as is his indirect bilirubin. Denies rectal bleeding or dark tarry stools. Pt main complaint is not getting enough sleep due to many interruptions.
Vital Signs:
Vital Signs
Temp Pulse Resp BP Pulse Ox
97.6 F 72 17 135/72 96
01/07/24 15:00 01/07/24 15:00 01/07/24 15:00 01/07/24 15:00 01/07/24 15:00
Lab Results:
Laboratory Data
WBC 4.2 10^3/uL (4.8-10.8) L 01/07/24 05:28
Hgb 8.7 g/dL (13.0-18.0) L 01/07/24 05:28
Plt Count 187 10^3/uL (130-400) 01/07/24 05:28
eGFR > 60.00 01/07/24 05:28
Physical Exam
Ill-appearing.
HEENT: Moist Mucous Membranes; No Jaundice
Cardiology: Normal Sinus Rhythm, S1 and S2
Pulmonary: Other (breath sounds diminished); No Clear
GI: Soft and Normal Bowel Sounds
Extremities: No C/C/E
Neuro: Non Focal
Review of Systems
Review of Systems
Constitutional: Reports Fatigue; Denies Fever
Head: Denies Sore Throat
Respiratory: Reports Dyspnea; Denies Cough
Cardiovascular: Denies Chest Pain or Palpitations
Gastrointestinal: Denies Nausea/Vomiting or Diarrhea
Genitourinary: Denies Hematuria
Skin: Denies Rash or Pruritis
Neurological: Denies Headache or Numbness
Psychiatric: Reports Depression and Insomnia
Hem/Lymphatic: Denies Easy Bruising or Night Sweats
[2024-01-07 19:33] VITALS: BP 116/55
[2024-01-07 23:00] VITALS: BP 112/65
[2024-01-08] VITALS (8 sets, daily range): BP systolic 102–131; BP diastolic 63–76; PULSE 92; O2SAT 96; BMI 25.6
[2024-01-08] MEDS: ZOSYN 50 IV ×4 (04:31→21:00)
[2024-01-08] MEDS: SYNTHROID 75 MCG PO (04:32)
[2024-01-08 06:52] LABS: Vancomycin Random 9.4 ug/ml
[2024-01-08 07:16] LABS: % Basophils 0.3 % (0-2); % Lymphocytes 14.1 % (20.5-51.1); % Monocytes 5.6 % (1.7-9.3); Absolute Eosinophils 0.1 10^3/uL (0-0.7); Absolute Lymphocytes 0.4 10^3/uL (1.2-3.4); Absolute Monocytes 0.2 10^3/uL (0.1-0.6); Absolute Neutrophils 2.4 10^3/uL (1.4-6.5); Hematocrit 25.7 % (39.0-52.0); Hemoglobin 8.4 g/dL (13.0-18.0); Mean Corp Hgb Conc. 32.7 g/dL (33.0-37.0); Mean Corpuscular Hgb 31.7 pg (27.0-31.0); Mean Platelet Volume 10.4 fL (7.4-10.4); Nucleated Red Blood Cells % 0 % (-); Platelet Count 166 10^3/uL (130-400); Red Blood Cell Count 2.65 10^6/uL (4.70-6.10); Red Cell Dist. Width 16.6 % (11.5-14.5); White Blood Cell Count 3.1 10^3/uL (4.8-10.8)
--- NOTE | 2024-01-08 07:58 | PHA.VAN.FU ---
Addendum entered and electronically signed by Gabriela Callejas [facility] 01/08/24 14:26:
BUN & SCR ordered per protocol
Original Note:
Vancomycin Assessment / Plan
- Assessment
Renal Function: No New Labs Today
In the past 24 hrs, patient has been: Afebrile
Concomitant Antimicrobials: piperacillin/tazobactam
- Assessment - Therapeutic Drug Monitoring
Random Level: 9.4 - drawn ~19H after previous dose of 1250mg
- Dosing Plan
Dosing by Level: Re-dose today (Vanc 1500mg based on decreased level with 1250mg)
Dosing Comments: will consider scheduling Vanc 1500mg Q24H, if trend stable
- Monitoring Plan
Random Level: 01/08 0600
- Follow Up
Pharmacy will continue to follow.
Vancomycin Follow UP
- -
Patient Age: 78
Patient Sex: Male
Vancomycin Day #: 8
Indication: Pulmonary/Respiratory
Requesting Provider: Dr. Chapman
Pertinent Antimicrobial Allergies:
no pertinent antibiotic allergies
Height / Weight:
Height 5 ft 9 in
Actual Weight 78.727 kg
Pertinent Past Medical History: Warm antibody autoimmune hemolytic anemia (rituximab)
- Vital Signs / Lab Results
Temp Pulse Resp BP Pulse Ox
97.6 F 81 18 119/76 97
01/08/24 07:45 01/08/24 07:45 01/08/24 07:45 01/08/24 07:45 01/08/24 07:45
Lab Results - Hematology
01/06/24 01/07/24 01/08/24
06:31 05:28 05:42
WBC 5.7 4.2 L 3.1 L
Lab Results - Chemistry
01/06/24 01/07/24
06:31 05:28
BUN 41 H 45 H
Creatinine 0.8 0.8
Estimated Creat Clear 76 76
Microbiology Results
01/01/24 16:02 Blood Culture - Final
Blood/Venous No Growth - Final Report
01/01/24 14:51 Blood Culture - Final
Blood/Venous No Growth - Final Report
Therapeutic Drug Monitoring
Vancomycin Peak 25.2 ug/ml (18-26) 01/03/24 20:35
Vancomycin Trough 13.8 ug/ml (5-20) 01/04/24 09:56
Random Vancomycin 9.4 ug/ml 01/08/24 05:42
[2024-01-08] MEDS: PROCTOFOAM-HC FOAM RECTAL (08:04)
[2024-01-08] MEDS: MIRALAX PO (08:04)
[2024-01-08] MEDS: URE-NA 15 GRAMS PO ×2 (08:04→19:46)
[2024-01-08] MEDS: ASPIR LOW (ENTERIC COATED) 81 MG PO (08:04)
[2024-01-08] MEDS: VITAMIN D3 (cholecalciferol) 25 MCG PO (08:04)
[2024-01-08] MEDS: PROTONIX 40 MG PO (08:04)
[2024-01-08] MEDS: LASIX 40 MG PO (08:04)
[2024-01-08] MEDS: TOPROL XL 25 MG PO ×2 (08:05→19:46)
[2024-01-08] MEDS: VITAMIN B-12 1000 MCG PO (08:05)
[2024-01-08] MEDS: KCL 20 MEQ PO ×2 (08:05→19:46)
[2024-01-08] MEDS: SODIUM CHLORIDE 1 GRAM PO ×2 (08:05→19:47)
[2024-01-08] MEDS: HEPARIN 5000 UNITS SC ×2 (08:05→19:46)
[2024-01-08] MEDS: FOLVITE 1 MG PO (08:05)
[2024-01-08] MEDS: DELTASONE 50 MG PO (08:05)
--- NOTE | 2024-01-08 11:02 | W.PN.PUL3 ---
Today's Communication / Plan
-
Continue prednisone with slow taper
Diuretics
Continue antibiotics
Continue oxygen supplementation
NPO p MN for possible bronchoscopy with BAL
Ultimately he will need follow up CT chest in 6 weeks to follow GGO changes to resolution.
Assessment
-
78-year-old male with complex medical history including recurrent hyponatremia, autoimmune hemolytic anemia, hypertension bullous pemphigoid who presents with increased shortness of breath for few days. He was found to be anemic. We are asked to
comment on his pulmonary process
Bilateral patchy infiltrates - DDx is acute pulmonary edema vs DAH vs inflammatory pneumonitis vs pneumonia
History of hemolytic anemia
Warm antibody autoimmune hemolysis
Rituxan therapy monthly
On chronic prednisone therapy
Recurrent left pleural effusion
s/p Thora 09/26, 09/28, 10/09 (cytology Neg)
Mild MR, moderate AR
PA pressure 35
Normal biventricular function
Hyponatremia/hypokalemia
Elevated lactate
Depressed IgG
Conditions present prior to admission
History of SVT
History of stroke
History of recurrent hyponatremia/SIADH
Chronic autoimmune hemolytic anemia
Hypertension
History of bullous pemphigoid
History of colon cancer 2018
Hypothyroidism
BPH
Diverticulosis
Plan/recommendations
Salient features include chronic high-dose steroid therapy, recent Rituxan therapy 1 month ago, now presents with progressive shortness of breath, lower extremity edema and chest x-ray suggestive of bilateral infiltrates
History of recurrent left pleural effusion noted, drained x 3 back in September and October 2023, has not recurred
Anemia noted, specifically in the setting of lack of obvious hemolysis per Hematology correspondence
At risk for diffuse alveolar hemorrhage given autoimmune process
-
Remains on supplemental oxygen @ 2 L of supplemental oxygen, not worsening
-
Status post transfusion on 01/02 + 01/04/2024, hemoglobin now slowly downtrending post-transfusion
Negative fluid balance-cardiology has signed off.Now on oral Lasix BID
-
Chest x-ray- persistent bilateral infiltrates
CT chest 01/06/2024: Reviewed,
Showed widespread bilateral predominantly centrally located groundglass opacities new compared to prior study. Infectious, pulmonary edema, inflammatory. Tiny right and left pleural effusion.
-
Possible infectious etiology: Afebrile without leukocytosis.
For now we will continue with empiric antibiotics- Zosyn/Vanco. Would complete total 7-10 days of antibiotics.
Follow-up blood cultures
MRSA screen positive.
All other cultures negative.
Hopefully can narrow down antibiotics soon
-
Echocardiogram normal with increased ProBNP on admission.
Status post IV diuretic.
On oral diuretics. Twice a day.
Patient with complex volume status, difficulty to determine whether intermittently dry
patient does have chronic lower extremity swelling which has improved since admission.
-
Differential also includes opportunistic infection, pneumocystis, fungal infection.
Less likely as he is improving.
I discussed the case with Oncology, and considering that the pt is at risk for DAH with now downtrending Hb, and there is still concern for atypical infection, bronch with BAL would be helpful. I will thus arrange for bronchoscopy with BAL -
hopefully can get this done by tomorrow or
-
For hemolytic anemia patient remains on prednisone 40 mg. No evidence for ongoing hemolysis per hematology.
Hematology has evaluated the patient this admission.
Patient received 2 units of packed red blood cells this admission with improvement in hemoglobin.
Trend hemoglobin, currently slowly downtrending
-
Patient at risk for diffuse alveolar hemorrhage-current hemoglobin is slowly downtrending - albeit less likely. Will need to continue to follow, Will arrange for bronchoscopy with BAL to rule out DAH.
-
Inflammatory pneumonitis from Rituxan therapy also possibility. Continue steroids for now with prednisone and slow taper.
-
Assess oxygen needs prior DC. Patient not on home oxygen
Wean oxygen as able, maintain saturation greater than 89%
Will continue to follow
Total time spent today was 35 minutes for this encounter. Time includes reviewing laboratory test/imaging results, reviewing pertinent medical records, obtaining and reviewing medical history, performing an appropriate exam, ordering medications,
tests and procedures. Time also includes documentation of this encounter, coordinating patient care and communicating with other healthcare professionals. Total time does not include separately billed tests performed on this date of service.
Data:
CT Chest without contrast 01-06-2024:
Widespread bilateral predominantly central groundglass opacities new in the interval since prior study. Findings are nonspecific and may be inflammatory/infectious or represent pulmonary edema.
New tiny right pleural effusion and tiny left pleural effusion significantly decreased.
Old granulomatous disease as noted by calcified left hilar lymph nodes and small calcified left lower lobe pulmonary nodule again seen.
Subjective Data
-
Date of Service:
Date of Service: January 08, 2024
Chief Complaint: Pulmonary Follow Up and Dyspnea Follow Up
Subjective:
Patient seen today. He is on 2 L/min nasal cannula, breathing comfortably. He denies shortness of breath with activity and he was walking around his room today with no issues. No acute events reported overnight. Hb slowly decreasing and is 8.4
today. No hemoptysis, no chest pain, fevers or chills.
Review of Systems
General: Other (Negative unless mentioned above)
Objective Data
Data Reviewed
Vital Signs / I&O / Oxygen:
Vital Signs
Temp Pulse Resp BP Pulse Ox
97.9 F 85 18 108/66 96
01/08/24 15:22 01/08/24 15:22 01/08/24 15:22 01/08/24 15:22 01/08/24 15:22
Intake and Output
01/07/24 01/08/24 01/09/24
06:59 06:59 06:59
Intake Total 2280 / 2280 1375 / 1375 640 / 640
Output Total 2600 / 2600 1475 / 1475 900 / 900
Balance -320 / -320 -100 / -100 -260 / -260
SaO2 96
Nasal Cannula flow liters per 2
minute
Physical Exam
General: Respiratory Distress (negative) and Comfortable
HEENT: Normocephalic and Anicteric
Cardiovascular: S1-S2, Murmur (n), Rub (n) and Peripheral Edema (+1 LE pitting edema)
Respiratory: Wheeze (n), Crackles (bilateral), Rhonchi (n) and Non-Labored Respirations
GI: Soft, Non Distended and Non Tender
Neurology: AO x 3 and Tremors (n)
Skin: Warm, Dry, Jaundice (n), Rash (n) and Bruising (n)
Labs/Micro/Reports
Lab Data
01/08/24 05:42
01/07/24 05:28
Microbiology
01/01/24 16:02 Blood/Venous Blood Culture - Final
No Growth - Final Report
01/01/24 14:51 Blood/Venous Blood Culture - Final
No Growth - Final Report
--- NOTE | 2024-01-08 11:21 | W.PN.ONC ---
Today's Communication / Plan
-
Normal haptoglobin suggests against any clinically significant hemolysis. LFTs add-on to am labs.
Will taper Prednisone. He's been on 50mg/d for three days, will drop to 40mg/d 01/09/24 and further taper as able
Drop in MCV noted. Will check iron studies. Reportedly heme negative x3, per patient and
Monitor CBC daily
Appreciate pulmonary input. No plans for bronchoscopy at this point
Continue antibiotics
Dr Rojas ordered flow cytometry for PNH which would require specific treatment.
Impression
Impression
Hyperproliferative (elevated reticulocyte count) recurrent acute anemia
History of WILLEM Conner positive hemolytic anemia
SIADH/hyponatremia
Plan
Plan
Normal haptoglobin suggests against any clinically significant hemolysis. LFTs add-on to am labs.
Will taper Prednisone. He's been on 50mg/d for three days, will drop to 40mg/d 01/09/24 and further taper as able
Drop in MCV noted. Will check iron studies. Reportedly heme negative x3, per patient and
Monitor CBC daily
Appreciate pulmonary input. No plans for bronchoscopy at this point
Continue antibiotics
Dr Rojas ordered flow cytometry for PNH which would require specific treatment.
Subjective/Objective
Subjective/Objective
no complaints this am, tells me he's doing better
eager to taper steroids
Vital Signs:
Vital Signs
Temp Pulse Resp BP Pulse Ox
97.6 F 81 18 119/76 97
01/08/24 07:45 01/08/24 07:45 01/08/24 07:45 01/08/24 08:04 01/08/24 07:45
Lab Results:
Laboratory Data
WBC 3.1 10^3/uL (4.8-10.8) L 01/08/24 05:42
Hgb 8.4 g/dL (13.0-18.0) L 01/08/24 05:42
Plt Count 166 10^3/uL (130-400) 01/08/24 05:42
eGFR > 60.00 01/07/24 05:28
Orders
Orders
Orders From Last 24 Hours
01/08/24 11:09
Add On- LAB Routine
01/09/24 08:00
Prednisone [Deltasone] 40 mg PO DAILY
[2024-01-08] MEDS: VANCOCIN 300 MG IV (12:48)
[2024-01-08] MEDS: VANCOCIN 300 ML IV (12:48)
[2024-01-08 14:32] LABS: ALT (SGPT) 32 U/L (0-50); AST (SGOT) 27 U/L (17-59); Albumin 2.8 g/dl (3.5-5.0); Alkaline Phosphatase 81 U/L (38-126); Direct Bilirubin 0.3 mg/dl (0.0-0.4); Iron 137 ug/dl (49-181); Total Bilirubin 1.9 mg/dl (0.2-1.3); Total Protein 4.9 g/dl (6.3-8.2)
[2024-01-08 14:41] LABS: Percent Saturation 70 % (20-50); Total Iron Binding Capacity 195 ug/dl (261-462)
--- NOTE | 2024-01-08 16:02 | CM ---
Chart reviewed.
Patient continues on IV anbx, steroid taper and O2 2l.
Plan: home when stable, possible home oxygen needs.
--- NOTE | 2024-01-08 16:05 | W.PN.HOSP.TC ---
Today's Communication/Plan
-
ID consult for opportunistic infection prophylaxis
Appreciate pulmonary
Patient is doing better
Assessment / Plan
Assessment / Plan
Physical Exam
General: Not in acute distress
HEENT: Normocephalic, Moist mucous membranes and Atraumatic
Respiratory: Crackles bilaterally.
Cardiac: S1/S2.
GI: Soft, Non Tender, Non Distended and Normal Bowel Sounds
Musculoskeletal: No Cyanosis, less edema in legs.
Skin: Warm. Dry.
Neuro: Nonfocal/grossly intact
Psych: no agitation, calm.

Assessment/Plan
78 male came in with shortness of breath and anemia. History of hemolytic anemia but testing not compatible with hemolysis event. As of January 07, 2024 he received 2 units of blood - he needed blood from [facility] due to antibodies. His hemoglobin
stable as of January 07, 2024. Prednisone is causing him significant muscle weakness/myopathy in lower extremity. Diagnosed with possible bilateral pneumonia. On IV antibiotics. CT chest done and possibly also pulmonary edema. IV Lasix was given.
Oncology/pulmonary/cardiology are seeing him.
# Hemorrhoidal bleeding, mild in severity
-Hydrocortisone suppository
# History of WILLEM Conner positive hemolytic anemia
Warm antibody autoimmune hemolysis
Rituxan therapy monthly
On chronic prednisone therapy: taper prednisone as per hematology
s/p transfusion of 2 units
Continue folic acid
Appreciate hematology input
Transfuse w/ least incompatible blood from the [place] as needed to maintain Hgb >7
# Sepsis (leukocytosis, tachycardia, borderline hypoxic, weakness) secondary to interstitial pneumonia in the setting of immunocompromise status from recent Rituxan
Acute hypoxic respiratory failure.
Bilateral patchy infiltrates
Recurrent left pleural effusion
-COVID-negative, influenza negative
-Pro-Tay elevated 0.56. No leukocytosis.
-Cardiac BNP of 2100
-Lactic acid 4.9 then down to 1.6
Mildly elevated procalcitonin
Chest radiography showing interstitial pneumonia
Continue prednisone. Continue antibiotics. MRSA screen is positive
- Negative blood cultures.
-CT chest 01/06/2024 - showed widespread bilateral predominantly centrally located groundglass opacities new compared to prior study.
-Appreciate pulmonary input
-Differential diagnosis also includes opportunistic infection, pneumocystis, fungal infection, and inflammatory pneumonitis
-Also if concerning for opportunistic infection, pneumocystis, fungal infection, then bronchoscopy with BAL will be needed --> but no bronchoscopy for now
-At risk for diffuse alveolar hemorrhage given autoimmune process
-Consult ID for prophylaxis against opportunistic infections given steroid and Rituxan use
# Acute on chronic heart failure with a preserved ejection fraction.
Less leg edema, better lung exam.
Echocardiogram showed LVEF 60 to 65%, mild LVH, stage II diastolic dysfunction. Mild MR, moderate aortic regurgitation, mild tricuspid regurgitation. Comparison to previous echocardiogram in October 2023, no significant change.
Elevated proBNP
Status post IV Lasix
c/w Lasix 40 mg PO daily
Appreciate cardiology input
# Hypokalemia, replaced
# Hyponatremia, History of hyponatremia associated seizure
# History of recurrent hyponatremia/SIADH
Sodium stable in the low 130s
No confusion
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 Continue sodium tablets and urea with the fluid restriction. S/p one dose of Tolvaptan 01/02.
#History of SVT
-Continue metoprolol
#Mild to moderate aortic regurgitation
#Essential hypertension
#Recurrent left pleural effusion
Chest x ray on admission no significant left effusion, CT showed decreasing volume.
#Hypothyroidism
-Continue levothyroxine
#Bullous pemphigoid
#History of CVA
-Continue statin & aspirin.
BPH
Diverticulosis
Chronic multilevel vertebral body endplate fractures
History of fatty liver
History of bullous pemphigoid
History of colon cancer 2019
Hypothyroidism
BPH
Diverticulosis
DNR/DNI
DVT prophylaxis�heparin
Cardiac diet
Anticipated Discharge: 24 - 48 hours
Subjective/Interval History
-
Date of Service: January 08, 2024
Patient was seen and examined. He reported that he is doing better today, and said that he got better sleep last night.
Objective Data
-
Labs:
Laboratory Results
01/08/24
05:42
WBC 3.1 L
Hgb 8.4 L
Hct 25.7 L
Plt Count 166
Total Bilirubin 1.9 H
AST 27
ALT 32
Alkaline Phosphatase 81
Vital Signs:
Vital Signs
Temp Pulse Resp BP Pulse Ox
97.9 F 85 18 108/66 96
01/08/24 15:22 01/08/24 15:22 01/08/24 15:22 01/08/24 15:22 01/08/24 15:22
I&O
01/07/24 01/08/24 01/09/24
06:59 06:59 06:59
Intake Total 2280 / 2280 1375 / 1375
Output Total 2600 / 2600 1475 / 1475
Balance -320 / -320 -100 / -100
[2024-01-08] MEDS: LIPITOR 40 MG PO (17:05)
[2024-01-09] VITALS (8 sets, daily range): BP systolic 100–128; BP diastolic 58–69; BMI 25.6
[2024-01-09] MEDS: SYNTHROID 75 MCG PO (04:31)
[2024-01-09] MEDS: ZOSYN 50 IV ×2 (04:31→12:12)
[2024-01-09 07:02] LABS: Vancomycin Random 11.2 ug/ml
[2024-01-09 07:18] LABS: Blood Urea Nitrogen 39 mg/dl (9-20); Estimated Creatinine Clearance 87 ml/min
[2024-01-09 07:25] LABS: Procalcitonin 0.29 ng/ml (0.0-0.25)
--- NOTE | 2024-01-09 07:58 | W.PN.ONC2 ---
Today's Communication / Plan
-
Await PNH workup. Starting to taper steroids. Unfortunately, still no specific unifying diagnosis. Based on my partner's signout and his previous visits, he does seem to be clinically improving.
Impression
Impression
Hyperproliferative (elevated reticulocyte count) recurrent acute anemia
History of WILLEM Conner positive hemolytic anemia
SIADH/hyponatremia
Plan
Plan
Normal haptoglobin suggests against any clinically significant hemolysis. LFTs add-on to am labs.
Will taper Prednisone. He's been on 50mg/d for three days, will drop to 40mg/d 01/09/24 and further taper as able
Drop in MCV noted. Will check iron studies. Reportedly heme negative x3, per patient and
Monitor CBC daily
Appreciate pulmonary input. No plans for bronchoscopy at this point
Continue antibiotics
Dr Rojas ordered flow cytometry for PNH which would require specific treatment.
Subjective/Objective
Chief Complaint
ACS Heme Onc
Subjective
Seems to feel okay. Just some dyspnea with exertion. Frustrated that still no clear-cut diagnosis to explain his anemia. Feels that all the doctors here should have 'figured it out by now.'
Vital Signs:
Vital Signs
Temp Pulse Resp BP Pulse Ox
97.6 F 67 20 102/65 97
01/08/24 23:26 01/08/24 23:26 01/08/24 23:26 01/08/24 23:26 01/08/24 23:33
Lab Results:
Laboratory Data
WBC 3.1 10^3/uL (4.8-10.8) L 01/08/24 05:42
Hgb 8.4 g/dL (13.0-18.0) L 01/08/24 05:42
Plt Count 166 10^3/uL (130-400) 01/08/24 05:42
eGFR > 60.00 01/07/24 05:28
Physical Exam
Cardiology: S1 and S2
Pulmonary: Clear
GI: Soft
Extremities: No C/C/E
[2024-01-09 09:28] LABS: % Basophils 1.3 % (0-2); % Eosinophils 4.3 % (0-6); % Immature Granulocytes 0.4 % (0-0.5); % Lymphocytes 22.1 % (20.5-51.1); % Monocytes 10.2 % (1.7-9.3); % Neutrophils 61.7 % (42.2-75.2); Absolute Eosinophils 0.1 10^3/uL (0-0.7); Absolute Lymphocytes 0.5 10^3/uL (1.2-3.4); Absolute Monocytes 0.2 10^3/uL (0.1-0.6); Absolute Neutrophils 1.5 10^3/uL (1.4-6.5); Hematocrit 25.7 % (39.0-52.0); Hemoglobin 8.7 g/dL (13.0-18.0); Mean Corp Hgb Conc. 33.9 g/dL (33.0-37.0); Mean Corpuscular Hgb 32.6 pg (27.0-31.0); Mean Corpuscular Volume 96.3 fL (80.0-94.0); Mean Platelet Volume 10.3 fL (7.4-10.4); Nucleated Red Blood Cells % 0 % (-); Platelet Count 177 10^3/uL (130-400); Red Blood Cell Count 2.67 10^6/uL (4.70-6.10); Red Cell Dist. Width 16.3 % (11.5-14.5)
--- NOTE | 2024-01-09 09:30 | W.SUR.POST ---
Addendum entered and electronically signed by Mykel Serrato MD 01/09/24 20:01:
Correction to Date of Service: 01/09/2024
Original Note:
Surgical Immediate Post Op
Note
Diagnostic Bronchoscopy (performed in bronch suite)
Pre Op Diagnosis: Bilateral ground-glass opacities/infiltrates; immunocompromised state; SOB
Post Op Diagnosis: Same as above
Procedure Performed: Diagnostic bronchoscopy with bronchoalveolar lavage
Primary Surgeon/Proceduralist: Dr. Serrato
Secondary Surgeons: N/A
Anesthesia: See separate anesthesia note
Estimated Blood Loss: None
Fluids: N/A
Drains/Shunts: N/A
Specimens/Cultures: BAL sent from [facility] and [facility] for fungus, respiratory and AFB, viral, RSV, legionella DFA, and PCP rule out (Silver stain)
Doppler/Duplex/Angio (Y/N): N/A
Complications: N/A
Operative Findings: After signed consent, LMA was inserted into airway by anesthesia. Diagnostic bronchoscope was inserted into the proximal airway and the cords appeared normal. 3mL of 2% xylocaine was instilled onto the cords, and the
bronchoscope passed through into the trachea without any difficulty. Another 3mL of 2% xylocaine was instilled onto the haider, which was sharp. There was scant clear, bubbly secretions seen along tracheobronchial tree which were suctioned. BAL
was performed at [facility] (120cc from lingula, 110cc from L). Return fluid was clear, mucoid and not bloody. I surveyed the bilateral tracheobronchial tree, and all airways were patent down to segmental levels. The bronchoscope was then
removed entirely from the airway, and the procedure ended.
[2024-01-09 09:33] LABS: White Blood Cell Count 2.4 10^3/uL (4.8-10.8)
--- NOTE | 2024-01-09 09:42 | W.PN.PUL3 ---
Today's Communication / Plan
-
Continue prednisone with slow taper
Diuretics
Continue antibiotics
Continue oxygen supplementation
NPO for bronchoscopy with BAL
Ultimately he will need follow up CT chest in 6 weeks to follow GGO changes to resolution.
Assessment
-
78-year-old male with complex medical history including recurrent hyponatremia, autoimmune hemolytic anemia, hypertension bullous pemphigoid who presents with increased shortness of breath for few days. He was found to be anemic. We are asked to
comment on his pulmonary process
Bilateral patchy infiltrates - DDx is acute pulmonary edema vs DAH vs inflammatory pneumonitis vs pneumonia
History of hemolytic anemia
Warm antibody autoimmune hemolysis
Rituxan therapy monthly
On chronic prednisone therapy
Recurrent left pleural effusion
s/p Thora 09/26, 09/28, 10/09 (cytology Neg)
Mild MR, moderate AR
PA pressure 35
Normal biventricular function
Hyponatremia/hypokalemia
Elevated lactate
Depressed IgG
Conditions present prior to admission
History of SVT
History of stroke
History of recurrent hyponatremia/SIADH
Chronic autoimmune hemolytic anemia
Hypertension
History of bullous pemphigoid
History of colon cancer 2018
Hypothyroidism
BPH
Diverticulosis
Plan/recommendations
Salient features include chronic high-dose steroid therapy, recent Rituxan therapy 1 month ago, now presents with progressive shortness of breath, lower extremity edema and chest x-ray suggestive of bilateral infiltrates
History of recurrent left pleural effusion noted, drained x 3 back in September and October 2023, has not recurred
Anemia noted, specifically in the setting of lack of obvious hemolysis per Hematology correspondence
At risk for diffuse alveolar hemorrhage given autoimmune process
-
Remains on supplemental oxygen @ 2 L of supplemental oxygen, not worsening
-
Status post transfusion on 01/02 + 01/04/2024, hemoglobin now slowly downtrending post-transfusion
Negative fluid balance-cardiology has signed off.Now on oral Lasix BID
-
Chest x-ray- persistent bilateral infiltrates
CT chest 01/06/2024: Reviewed,
Showed widespread bilateral predominantly centrally located groundglass opacities new compared to prior study. Infectious, pulmonary edema, inflammatory. Tiny right and left pleural effusion.
-
Possible infectious etiology: Afebrile without leukocytosis.
For now we will continue with empiric antibiotics- Zosyn/Vanco. Would complete total 7-10 days of antibiotics.
Follow-up blood cultures
MRSA screen positive.
All other cultures negative.
Hopefully can narrow down antibiotics soon
-
Echocardiogram normal with increased ProBNP on admission.
Status post IV diuretic.
On oral diuretics. Twice a day.
Patient with complex volume status, difficulty to determine whether intermittently dry
patient does have chronic lower extremity swelling which has improved since admission.
-
Differential also includes opportunistic infection, pneumocystis, fungal infection.
Less likely as he is improving.
I discussed the case with Oncology, and considering that the pt is at risk for DAH with now downtrending Hb, and there is still concern for atypical infection, bronch with BAL would be helpful. Patient is NPO for bronchoscopy with BAL today - will
send for respiratory culture, fungus culture, AFB, viral Cx, and PCP/silver stain
-
For hemolytic anemia patient remains on prednisone 40 mg. No evidence for ongoing hemolysis per hematology.
Hematology has evaluated the patient this admission.
Patient received 2 units of packed red blood cells this admission with improvement in hemoglobin.
Trend hemoglobin, currently stable
-
Patient at risk for diffuse alveolar hemorrhage-current hemoglobin is slowly downtrending - albeit less likely. Will need to continue to follow, Will arrange for bronchoscopy with BAL to rule out DAH (unlikely)
-
Inflammatory pneumonitis from Rituxan therapy also possibility. Continue steroids for now with prednisone and slow taper.
-
Assess oxygen needs prior DC. Patient not on home oxygen
Wean oxygen as able, maintain saturation greater than 89%
Will continue to follow
Total time spent today was 35 minutes for this encounter. Time includes reviewing laboratory test/imaging results, reviewing pertinent medical records, obtaining and reviewing medical history, performing an appropriate exam, ordering medications,
tests and procedures. Time also includes documentation of this encounter, coordinating patient care and communicating with other healthcare professionals. Total time does not include separately billed tests performed on this date of service.
Data:
CT Chest without contrast 01-06-2024:
Widespread bilateral predominantly central groundglass opacities new in the interval since prior study. Findings are nonspecific and may be inflammatory/infectious or represent pulmonary edema.
New tiny right pleural effusion and tiny left pleural effusion significantly decreased.
Old granulomatous disease as noted by calcified left hilar lymph nodes and small calcified left lower lobe pulmonary nodule again seen.
Subjective Data
-
Date of Service:
Date of Service: January 09, 2024
Chief Complaint: Pulmonary Follow Up and Dyspnea Follow Up
Subjective:
Pt seen this AM priro to bronchoscopy. Pt doing well. On room air doing well. Denies chest pain, RENEE, abd pain, N/V/f/c.
Review of Systems
General: Other (negative unless mentioned above)
Objective Data
Data Reviewed
Vital Signs / I&O / Oxygen:
Vital Signs
Temp Pulse Resp BP Pulse Ox
97.6 F 67 20 102/65 97
01/08/24 23:26 01/08/24 23:26 01/08/24 23:26 01/08/24 23:26 01/08/24 23:33
Intake and Output
01/08/24 01/09/24 01/10/24
06:59 06:59 06:59
Intake Total 1375 / 1375 1080 / 1080
Output Total 1475 / 1475 1650 / 1650
Balance -100 / -100 -570 / -570
SaO2 97
Nasal Cannula flow liters per 2
minute
Physical Exam
General: Respiratory Distress (negative) and Comfortable
HEENT: Normocephalic and Anicteric
Cardiovascular: S1-S2, Murmur (n), Rub (n) and Peripheral Edema (+1 LE pitting edema)
Respiratory: Wheeze (n), Crackles (bilateral), Rhonchi (n) and Non-Labored Respirations
GI: Soft, Non Distended and Non Tender
Neurology: AO x 3 and Tremors (n)
Skin: Warm, Dry, Jaundice (n), Rash (n) and Bruising (n)
Labs/Micro/Reports
Lab Data
01/09/24 09:12
01/09/24 06:11
Microbiology
01/01/24 16:02 Blood/Venous Blood Culture - Final
No Growth - Final Report
01/01/24 14:51 Blood/Venous Blood Culture - Final
No Growth - Final Report
[2024-01-09 10:22] LABS: NT-proBNP 620 pg/ml
--- NOTE | 2024-01-09 11:08 | PHA.VAN.FU ---
Vancomycin Assessment / Plan
- Assessment
Renal Function: Stable
WBC's are: Trending Down
Neutropenia: ANC = 1500
In the past 24 hrs, patient has been: Afebrile
Concomitant Antimicrobials: piperacillin/tazobactam
- Assessment - Therapeutic Drug Monitoring
Random Level: 11.2 - drawn ~17.25H after previous dose of 1500mg
- Dosing Plan
Adjust Regimen to: Vanc 1500mg Q24H
Dosing Comments: half-life = 15.4
- Monitoring Plan
No level(s) ordered at this time: consider levels in next few days
- Follow Up
Pharmacy will continue to follow.
Vancomycin Follow UP
- -
Patient Age: 78
Patient Sex: Male
Vancomycin Day #: 9
Indication: Pulmonary/Respiratory
Requesting Provider: Dr. Chapman
Pertinent Antimicrobial Allergies:
no pertinent antibiotic allergies
Height / Weight:
Height 5 ft 9 in
Actual Weight 78.528 kg
Pertinent Past Medical History: Warm antibody autoimmune hemolytic anemia (rituximab)
- Vital Signs / Lab Results
Temp Pulse Resp BP Pulse Ox
98.2 F 93 21 108/69 99
01/09/24 10:34 01/09/24 10:45 01/09/24 10:45 01/09/24 10:45 01/09/24 10:45
Lab Results - Hematology
01/07/24 01/08/24 01/09/24
05:28 05:42 09:12
WBC 4.2 L 3.1 L 2.4 L*
Lab Results - Chemistry
01/07/24 01/08/24 01/09/24
05:28 05:42 06:11
BUN 45 H 39 H
Creatinine 0.8 0.7
Estimated Creat Clear 76 87
Albumin 2.8 L
Therapeutic Drug Monitoring
Vancomycin Peak 25.2 ug/ml (18-26) 01/03/24 20:35
Vancomycin Trough 13.8 ug/ml (5-20) 01/04/24 09:56
Random Vancomycin 11.2 ug/ml 01/09/24 06:11
[2024-01-09 12:08] LABS: Brochalveolar Lavage Volume 20 ml
[2024-01-09 12:09] LABS: Brochalveolar Lavage Color Yellow
[2024-01-09 12:10] LABS: Brochalveolar Lavage Character Hazy (Clear); Brochalveolar Lavage WBC 46750 cells/ml
[2024-01-09] MEDS: MIRALAX PO (12:33)
[2024-01-09] MEDS: PROCTOFOAM-HC FOAM RECTAL (12:33)
[2024-01-09] MEDS: VITAMIN B-12 1000 MCG PO (12:34)
[2024-01-09] MEDS: PROTONIX 40 MG PO (12:34)
[2024-01-09] MEDS: FOLVITE 1 MG PO (12:34)
[2024-01-09] MEDS: KCL 20 MEQ PO (12:34)
[2024-01-09] MEDS: VITAMIN D3 (cholecalciferol) 25 MCG PO (12:34)
[2024-01-09] MEDS: SODIUM CHLORIDE 1 GRAM PO ×2 (12:34→20:27)
[2024-01-09] MEDS: DELTASONE 40 MG PO (12:34)
[2024-01-09] MEDS: ASPIR LOW (ENTERIC COATED) 81 MG PO (12:34)
[2024-01-09] MEDS: URE-NA 15 GRAMS PO ×2 (12:34→20:28)
[2024-01-09] MEDS: TOPROL XL 25 MG PO ×2 (12:34→20:11)
[2024-01-09] MEDS: LASIX 40 MG PO (12:35)
[2024-01-09] MEDS: HEPARIN 5000 UNITS SC ×2 (12:35→20:13)
--- NOTE | 2024-01-09 12:43 | CM ---
Patient seen bedside with spouse.
Patient s/p bronchoscopy.
Continues on oxygen 2 liters per min.
Continues IV anbx and po steroids.
Plan: home with possible home oxygen needs.
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
[2024-01-09 13:53] LABS: BAL Neutrophils 12 %
--- NOTE | 2024-01-09 13:53 | CON.ID ---
Consultation
-
Date/Time Consultation Requested: January 08, 2024 1619
Date/Time Consultation Performed: January 09, 2024 1355
Requesting Provider: Dr. Van Palacios
Performing Provider: Dr. Daiana Sims
Reason for Consultation: Prophylactic regimen for opportunistic infections
Chief Complaint / Past History
Chief Complaint
Shortness of breath
History of Present Illness
78-year-old male with history of hyponatremia/SIADH, hypothyroidism, recurrent left pleural effusion, bullous pemphigoid who was hospitalized in November 2023 and diagnosed with WILLEM Conner positive autoimmune hemolytic anemia. He was discharged to
home on high-dose steroid and started on weekly Rituxan for which he received 4 doses completed end of November 2023. Patient has been maintained on high-dose prednisone 60 mg a day. He presented to the hospital January 01 due to progressive shortness of
breath especially with activity. Positive weakness. No fevers or chills. No cough. Patient noted to be hypoxic. Chest x-ray shows bilateral interstitial pneumonia. Chest CT showed new widespread bilateral predominantly central groundglass
opacities. He has been on vancomycin and Zosyn since admission. He continues to be hypoxic requiring nasal cannula. His prednisone is being tapered now at 40 mg daily. He is also receiving furosemide. He underwent bronchoscopy today. Patient
reports he is still short of breath with activity. His oxygen drops with activity. No ill contacts. No pets. No travel history. He lives in the [facility] all his life.
Past History
Additional Past Medical History:
Hypertension
Recurrent left pleural effusion
SVT
Hypothyroidism
Chronic SIADH
CVA
BP
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
Bullous pemphigoid
Fatty liver
Diverticulosis
Chronic lower extremity edema
Vertebral fracture
Allergy History:
amlodipine Allergy (Verified 01/01/24 14:19)
pt states it caused his sodium level to be low
Medications Reviewed: Yes
Current Antibiotics:
Zosyn d9
Vancomycin d9
Social History
Tobacco: Non-Smoker
Alcohol: None
Drug: None
Personal:
Family History
Family History: Not Pertinent
Review of Systems
Review of Systems
General: Negative Fever, Chills or Change in Appetite
HEENT: Negative Stiff Neck, Headache or Pharyngitis
Cardiovascular: Dyspnea and Edema; Negative Chest Pain
Respiratory: Dyspnea; Negative Cough or Sputum Production
Endocrine: Weakness
Skin / Hair / Nails: Negative Rash
Neurological: Negative Headache or Dizziness
All systems: All other systems were reviewed and were negative
Vital Signs
Temp Pulse Resp BP Pulse Ox
98 F 87 25 110/58 99
01/09/24 11:15 01/09/24 11:30 01/09/24 11:30 01/09/24 11:30 01/09/24 11:00
Physical Exam
Physical Exam
Constitutional: No Acute Distress and Comfortable
Eyes: No Conjunctival Hemorrhage and Sclera Anicteric
Cardiovascular: Regular Rate and S3/S4
Pulmonary: Rales (bilateral crackles)
Gastrointestinal: Soft, Non Tender, Non Distended and Normal Bowel Sounds
Extremities: Edema (2+ edema BLE)
Skin: Negative Rash
Neurological: AO x 3
Lab / Diagnostic Study Results
01/09/24 09:12
01/09/24 06:11
Abs Immat Gran (auto) 0.0 10^3/uL (0-0.05) 01/09/24 09:12
Absolute Neuts (auto) 1.5 10^3/uL (1.4-6.5) 01/09/24 09:12
Absolute Lymphs (auto) 0.5 10^3/uL (1.2-3.4) L 01/09/24 09:12
Absolute Monos (auto) 0.2 10^3/uL (0.1-0.6) 01/09/24 09:12
Absolute Basos (auto) 0.0 10^3/uL (0-0.2) 01/09/24 09:12
Immature Gran % 0.4 % (0-0.5) 01/09/24 09:12
Neutrophils % 61.7 % (42.2-75.2) 01/09/24 09:12
Lymphocytes % 22.1 % (20.5-51.1) 01/09/24 09:12
Monocytes % 10.2 % (1.7-9.3) H 01/09/24 09:12
Eosinophils % 4.3 % (0-6) 01/09/24 09:12
Basophils % 1.3 % (0-2) 01/09/24 09:12
Lactic Acid Cancelled 01/02/24 01:28
C-Reactive Protein 28.50 mg/L (0.0-10.00) H 01/09/24 06:11
Procalcitonin 0.29 ng/ml (0.0-0.25) H 01/09/24 06:11
Microbiology Results
Micro:
01/09/24 10:38 Fungal Culture - Preliminary
Bronchoalveolar Lavage Culture in progress.
Positive cultures are reported as soon as detected.
Final report to follow in four to five weeks.
01/09/24 10:38 Acid Fast Bacilli Smear - Pending
Bronchoalveolar Lavage Acid Fast Bacilli Culture - Pending
Respiratory Virus Culture - Pending
01/09/24 10:37 Specimen Source - Pending
Bronchoalveolar Lavage Legionella pneumophila (Direct FA) - Pending
Legionella Culture - Pending
01/09/24 10:38 Respiratory Culture - Pending
Bronch Right Middle Lobe Gram Stain - Pending
01/01/24 16:02 Blood Culture - Final
Blood/Venous No Growth - Final Report
01/01/24 14:51 Blood Culture - Final
Blood/Venous No Growth - Final Report
01/02/24 09:15 Nasal Screen MRSA (PCR) - Final
Nose Staph aureus MRSA
01/01/24 17:25 Legionella Urinary Antigen - Final
Urine Negative for Legionella pneumophila Serogroup 1 antigen.
A negative result does not rule out the possiblity of
Legionella infection due to other serogroups or species of
Legionella. Clinical correlation is recommended.
Streptococcus pneumoniae Antigen (M - Final
Negative for Streptococcus pneumoniae antigen.
A negative result does not exclude infection with
Streptococcus pneumoniae. Clinical correlation is
recommended.
01/01/24 14:51 Influenza Types A & B (ORLY) - Final
Nasal Swab Negative for Influenza A & B, NAAT
Negative results must be combined with clinical observations
and patient history.
Nucleic Acid Amplification test (NAAT)performed on the
[employer] platform.
01/09/24 CXR: Persistent bilateral pulmonary parenchymal process. There appears to be slightly improved aeration in the upper lobes. Slightly increased subtle opacity in the right lower lobe.
01/06/[address]: Widespread bilateral predominantly central groundglass opacities new in the interval since prior study. Findings are nonspecific and may be inflammatory/infectious or represent pulmonary edema. New tiny right pleural effusion and
tiny left pleural effusion significantly decreased. Old granulomatous disease as noted by calcified left hilar lymph nodes and small calcified left lower lobe pulmonary nodule again seen.
01/01/24 CXR: There is moderate diffuse coarsening of the interstitial markings throughout both lungs which I favor reflects interstitial pneumonia rather than pulmonary edema though correlation with the patient's BNP is recommended.
Assessment / Plan
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
-DDX: pulmonary toxicity from Rituxan vs PJP PNA (risk factor - prolonged high dose steroid)
- s/p bronch/BAL today. Awaiting cultures/path/silverstain
-DC Vancomycin/Zosyn (d9)
-Start empiric PJP tx with Bactrim DS 2 tabs tid pending silver stain result.
-Hold potassium while on Bactrim.
-Follow clinically and oxygen stattus.
[2024-01-09 13:54] LABS: BAL Eosinophils 1 %; BAL Lining Cells 1 %; BAL Lymphocytes 61 %; BAL Macrophages 17 %; BAL Other Cells 8 %
[2024-01-09] MEDS: VANCOCIN 300 MG IV (14:00)
[2024-01-09] MEDS: VANCOCIN 300 ML IV (14:00)
--- NOTE | 2024-01-09 15:04 | W.PN.HOSP.TC ---
Today's Communication/Plan
-
Bronchoscopy today with samples sent
Appreciate ID, Pulmonary and Hematology
Assessment / Plan
Assessment / Plan
Physical Exam
General: Not in acute distress
HEENT: Normocephalic, Moist mucous membranes and Atraumatic
Respiratory: Crackles bilaterally.
Cardiac: S1/S2.
GI: Soft, Non Tender, Non Distended and Normal Bowel Sounds
Musculoskeletal: No Cyanosis
Skin: Warm. Dry.
Neuro: Nonfocal/grossly intact
Psych: no agitation, calm.

Assessment/Plan
78 male came in with shortness of breath and anemia. History of hemolytic anemia but testing not compatible with hemolysis event. As of January 07, 2024 he received 2 units of blood - he needed blood from [facility] due to antibodies. His hemoglobin
stable as of January 07, 2024. Prednisone is causing him significant muscle weakness/myopathy in lower extremity. Diagnosed with possible bilateral pneumonia. On IV antibiotics. CT chest done and possibly also pulmonary edema. IV Lasix was given.
Oncology/pulmonary/cardiology are seeing him.
# Hemorrhoidal bleeding, mild in severity
-Hydrocortisone suppository
# History of WILLEM Conner positive hemolytic anemia
Warm antibody autoimmune hemolysis
Rituxan therapy monthly
On chronic prednisone therapy: taper prednisone as per hematology
s/p transfusion of 2 units
Continue folic acid
Appreciate hematology input
Transfuse w/ least incompatible blood from the [place] [facility] as needed to maintain Hgb >7
# Sepsis (leukocytosis, tachycardia, borderline hypoxic, weakness) secondary to interstitial pneumonia in the setting of immunocompromise status from recent Rituxan
Acute hypoxic respiratory failure.
Bilateral patchy infiltrates
Recurrent left pleural effusion
-COVID-negative, influenza negative
-Pro-Tay elevated 0.56. No leukocytosis.
-Cardiac BNP of 2100
-Lactic acid 4.9 then down to 1.6
Mildly elevated procalcitonin
Chest radiography showing interstitial pneumonia
Continue prednisone. Continue antibiotics. MRSA screen is positive
- Negative blood cultures.
-CT chest 01/06/2024 - showed widespread bilateral predominantly centrally located groundglass opacities new compared to prior study.
-Appreciate pulmonary input
-Differential diagnosis also includes opportunistic infection, pneumocystis, fungal infection, and inflammatory pneumonitis
-Also if concerning for opportunistic infection, pneumocystis, fungal infection, then bronchoscopy with BAL will be needed
-Bronchoscopy performed on January 09, 2024 and BAL sent for fungus, respiratory and AFB, viral, RSV, legionella DFA, and PCP rule out (Silver stain)
-At risk for diffuse alveolar hemorrhage given autoimmune process
-Consult ID for prophylaxis against opportunistic infections given steroid and Rituxan use
# Acute on chronic heart failure with a preserved ejection fraction.
Less leg edema, better lung exam.
Echocardiogram showed LVEF 60 to 65%, mild LVH, stage II diastolic dysfunction. Mild MR, moderate aortic regurgitation, mild tricuspid regurgitation. Comparison to previous echocardiogram in October 2023, no significant change.
Elevated proBNP
Status post IV Lasix
c/w Lasix 40 mg PO daily
Appreciate cardiology input
# Hypokalemia, replaced
# Hyponatremia, History of hyponatremia associated seizure
# History of recurrent hyponatremia/SIADH
Sodium stable in the low 130s
No confusion
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 Continue sodium tablets and urea with the fluid restriction. S/p one dose of Tolvaptan 01/02.
#History of SVT
-Continue metoprolol
#Mild to moderate aortic regurgitation
#Essential hypertension
#Recurrent left pleural effusion
Chest x ray on admission no significant left effusion, CT showed decreasing volume.
#Hypothyroidism
-Continue levothyroxine
#Bullous pemphigoid
#History of CVA
-Continue statin & aspirin.
BPH
Diverticulosis
Chronic multilevel vertebral body endplate fractures
History of fatty liver
History of bullous pemphigoid
History of colon cancer 2019
Hypothyroidism
BPH
Diverticulosis
DNR/DNI
DVT prophylaxis�heparin
Cardiac diet
Anticipated Discharge: > 48 hours
Subjective/Interval History
-
Date of Service: January 09, 2024
Patient was seen and examined. He reported no new significant symptoms or complaints.
Objective Data
-
Labs:
Laboratory Results
01/09/24 01/09/24
06:11 09:12
WBC 2.4 L*
Hgb 8.7 L
Hct 25.7 L
Plt Count 177
BUN 39 H
Creatinine 0.7
Vital Signs:
Vital Signs
Temp Pulse Resp BP Pulse Ox
98 F 87 25 110/58 99
01/09/24 11:15 01/09/24 11:30 01/09/24 11:30 01/09/24 11:30 01/09/24 11:00
I&O
01/08/24 01/09/24 01/10/24
06:59 06:59 06:59
Intake Total 1375 / 1375 1080 / 1080
Output Total 1475 / 1475 1650 / 1650
Balance -100 / -100 -570 / -570
[2024-01-09] MEDS: BACTRIM DS 800 MG/160 MG 2 TABLET PO ×2 (15:57→20:29)
[2024-01-09] MEDS: LIPITOR 40 MG PO (17:36)
[2024-01-10] MEDS: SYNTHROID 75 MCG PO (05:42)
[2024-01-10 06:00] VITALS: BMI 25.8
[2024-01-10 07:15] VITALS: BP 120/87
[2024-01-10] MEDS: PROTONIX 40 MG PO (08:58)
[2024-01-10] MEDS: FOLVITE 1 MG PO (08:58)
[2024-01-10] MEDS: SODIUM CHLORIDE 1 GRAM PO ×2 (08:58→20:05)
[2024-01-10] MEDS: VITAMIN B-12 1000 MCG PO (08:58)
[2024-01-10] MEDS: ASPIR LOW (ENTERIC COATED) 81 MG PO (08:58)
[2024-01-10] MEDS: VITAMIN D3 (cholecalciferol) 25 MCG PO (08:58)
[2024-01-10] MEDS: TOPROL XL 25 MG PO ×2 (08:58→20:07)
[2024-01-10] MEDS: URE-NA 15 GRAMS PO ×2 (08:58→20:05)
[2024-01-10] MEDS: DELTASONE 40 MG PO (08:58)
[2024-01-10] MEDS: BACTRIM DS 800 MG/160 MG 2 TABLET PO ×3 (08:58→22:20)
[2024-01-10] MEDS: MIRALAX PO ×2 (08:58→09:07)
[2024-01-10] MEDS: HEPARIN 5000 UNITS SC ×2 (08:59→20:05)
[2024-01-10] MEDS: LASIX 40 MG PO (08:59)
[2024-01-10] MEDS: PROCTOFOAM-HC FOAM RECTAL (09:15)
--- NOTE | 2024-01-10 09:40 | W.PN.ONC ---
Today's Communication / Plan
-
CBC with diff this AM
Taper Prednisone: 40mg/day as of 01/09/24 and further taper as able
s/p bronchoscopy
Flow cytometry for PNH which would require specific treatment.
Impression
Impression
Hyperproliferative (elevated reticulocyte count) recurrent acute anemia
History of WILLEM Conner positive hemolytic anemia
SIADH/hyponatremia
Subjective/Objective
Subjective/Objective
Patient is resting comfortably in bed. Denies pain or evidence of bleeding. He reports poor sleep last evening.
Vital Signs:
Vital Signs
Temp Pulse Resp BP Pulse Ox
98.3 F 75 18 120/87 95
01/10/24 07:15 01/10/24 07:15 01/10/24 07:15 01/10/24 07:15 01/10/24 07:15
physical exam:
aaox3, pleasant/cooperative
HRR and lungs diminished on 2L oxygen via NC
scattered ecchymosis bilateral arms
Lab Results:
Laboratory Data
WBC 2.4 10^3/uL (4.8-10.8) L* 01/09/24 09:12
Hgb 8.7 g/dL (13.0-18.0) L 01/09/24 09:12
Plt Count 177 10^3/uL (130-400) 01/09/24 09:12
eGFR > 60.00 01/07/24 05:28
01/09/24 CXR: No pneumothorax status post bronchoscopy. Persistent bilateral pulmonary parenchymal process. There appears to be slightly improved aeration in the upper lobes. Slightly increased subtle opacity in the right lower lobe
Orders
Orders
Orders From Last 24 Hours
01/10/24 09:40
Complete Blood Count/With Diff Stat
[2024-01-10 10:09] LABS: % Eosinophils 2.9 % (0-6); % Immature Granulocytes 0.5 % (0-0.5); % Lymphocytes 25.8 % (20.5-51.1); % Monocytes 14.4 % (1.7-9.3); % Neutrophils 55.4 % (42.2-75.2); Absolute Eosinophils 0.1 10^3/uL (0-0.7); Absolute Lymphocytes 0.5 10^3/uL (1.2-3.4); Absolute Monocytes 0.3 10^3/uL (0.1-0.6); Absolute Neutrophils 1.2 10^3/uL (1.4-6.5); Hematocrit 26.7 % (39.0-52.0); Hemoglobin 8.7 g/dL (13.0-18.0); Mean Corp Hgb Conc. 32.6 g/dL (33.0-37.0); Mean Corpuscular Hgb 32.2 pg (27.0-31.0); Mean Corpuscular Volume 98.9 fL (80.0-94.0); Mean Platelet Volume 10.4 fL (7.4-10.4); Nucleated Red Blood Cells % 1.4 % (-); Platelet Count 201 10^3/uL (130-400); Red Cell Dist. Width 16.2 % (11.5-14.5)
--- NOTE | 2024-01-10 10:17 | W.PN.ID1 ---
Date of Service
Date of Service: January 10, 2024
Today's Communication
Continue Bactrim.
Assessment / Plan
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
-DDX: pulmonary toxicity from Rituxan vs PJP PNA (risk factor - prolonged high dose steroid)
- s/p bronch/BAL today. Awaiting cultures/path/silverstain
-s/p 9 days Vancomycin/Zosyn
-Continue empiric PJP tx with Bactrim DS 2 tabs tid (d2) pending silver stain result.
-Hold potassium while on Bactrim.
-Follow clinically and oxygen status.
#Additional Past Medical History:
Hypertension
Recurrent left pleural effusion
SVT
Hypothyroidism
Chronic SIADH
CVA
BP
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
Bullous pemphigoid
Fatty liver
Diverticulosis
Chronic lower extremity edema
Vertebral fracture
Chief Complaint
-: Pneumonia
Subjective / Review of Systems
Feels tired.
Vital Signs / Physical Exam
Vital Signs
Vital Signs
Temp Pulse Resp BP Pulse Ox
98.3 F 75 18 120/87 95
01/10/24 07:15 01/10/24 07:15 01/10/24 07:15 01/10/24 07:15 01/10/24 07:15
Physical Exam
Constitutional: No Acute Distress
Pulmonary: Rales (crackles bilaterally)
Gastrointestinal: Soft
Extremities: Edema
Neurological: AO x 3
Objective Data
Lab Data
Lab Results
01/09/24 06:11
Estimated Creat Clear 87 ml/min 01/09/24 06:11
Lactic Acid Cancelled 01/02/24 01:28
Total Bilirubin 1.9 mg/dl (0.2-1.3) H 01/08/24 05:42
AST 27 U/L (17-59) 01/08/24 05:42
ALT 32 U/L (0-50) 01/08/24 05:42
Alkaline Phosphatase 81 U/L (38-126) 01/08/24 05:42
C-Reactive Protein 28.50 mg/L (0.0-10.00) H 01/09/24 06:11
Most recent labs reviewed.
Micro Results:
01/09/24 10:38 Respiratory Culture - Pending
Bronch Right Middle Lobe Gram Stain - Preliminary
01/09/24 10:38 Fungal Culture - Preliminary
Bronchoalveolar Lavage Culture in progress.
Positive cultures are reported as soon as detected.
Final report to follow in four to five weeks.
01/09/24 10:38 Acid Fast Bacilli Smear - Pending
Bronchoalveolar Lavage Acid Fast Bacilli Culture - Pending
Respiratory Virus Culture - Pending
01/09/24 10:37 Specimen Source - Pending
Bronchoalveolar Lavage Legionella pneumophila (Direct FA) - Pending
Legionella Culture - Pending
01/01/24 16:02 Blood Culture - Final
Blood/Venous No Growth - Final Report
01/01/24 14:51 Blood Culture - Final
Blood/Venous No Growth - Final Report
01/02/24 09:15 Nasal Screen MRSA (PCR) - Final
Nose Staph aureus MRSA
01/01/24 17:25 Legionella Urinary Antigen - Final
Urine Negative for Legionella pneumophila Serogroup 1 antigen.
A negative result does not rule out the possiblity of
Legionella infection due to other serogroups or species of
Legionella. Clinical correlation is recommended.
Streptococcus pneumoniae Antigen (M - Final
Negative for Streptococcus pneumoniae antigen.
A negative result does not exclude infection with
Streptococcus pneumoniae. Clinical correlation is
recommended.
01/01/24 14:51 Influenza Types A & B (ORLY) - Final
Nasal Swab Negative for Influenza A & B, NAAT
Negative results must be combined with clinical observations
and patient history.
Nucleic Acid Amplification test (NAAT)performed on the
Projectioneering platform.
01/09/24 CXR: Persistent bilateral pulmonary parenchymal process. There appears to be slightly improved aeration in the upper lobes. Slightly increased subtle opacity in the right lower lobe.
01/06/[address]: Widespread bilateral predominantly central groundglass opacities new in the interval since prior study. Findings are nonspecific and may be inflammatory/infectious or represent pulmonary edema. New tiny right pleural effusion and
tiny left pleural effusion significantly decreased. Old granulomatous disease as noted by calcified left hilar lymph nodes and small calcified left lower lobe pulmonary nodule again seen.
01/01/24 CXR: There is moderate diffuse coarsening of the interstitial markings throughout both lungs which I favor reflects interstitial pneumonia rather than pulmonary edema though correlation with the patient's BNP is recommended.
[2024-01-10 10:20] LABS: White Blood Cell Count 2.1 10^3/uL (4.8-10.8)
--- NOTE | 2024-01-10 10:22 | PTCARENOTE ---
Notified provider of patient's WBCs 2.1
--- NOTE | 2024-01-10 10:25 | W.PN.ONC ---
Today's Communication / Plan
-
Normal haptoglobin suggests against precipitous hemolysis
Indirect bili suggest low-grade hemolysis at 1.6
No iron deficiency detectable
Will taper Prednisone 40mg/d 01/09/24 and further taper as able
Hemoglobin stable at 8.7 g/dL
Drop in MCV noted likely reflective of slowing reticulocyte response
Monitor CBC daily
No plans for bronchoscopy at this point
Continue antibiotics
Flow cytometry for PNH which would require specific treatment
Impression
Impression
Hyperproliferative (elevated reticulocyte count) recurrent acute anemia
History of WILLEM Conner positive hemolytic anemia
SIADH/hyponatremia
Lymphopenia likely post Rituxan
Hypogammaglobulinemia
Plan
Plan
.
Subjective/Objective
Subjective/Objective
Patient continues to have a mild dyspnea with conversation.
Vital Signs:
Vital Signs
Temp Pulse Resp BP Pulse Ox
98.3 F 75 18 120/87 95
01/10/24 07:15 01/10/24 07:15 01/10/24 07:15 01/10/24 07:15 01/10/24 07:15
Physical exam:
No scleral icterus
Regular heart rate
No rales
Symmetrical trace edema bilaterally
Lab Results:
Laboratory Data
WBC 2.1 10^3/uL (4.8-10.8) L* 01/10/24 09:53
Hgb 8.7 g/dL (13.0-18.0) L 01/10/24 09:53
Plt Count 201 10^3/uL (130-400) 01/10/24 09:53
eGFR > 60.00 01/07/24 05:28
--- NOTE | 2024-01-10 13:09 | PTCARENOTE ---
Asked provider if he would like a repeat BMP for today. Orders to follow.
--- NOTE | 2024-01-10 13:22 | W.PN.PUL3 ---
Today's Communication / Plan
-
Continue prednisone with slow taper
Diuretics
Continue antibiotics
Continue oxygen supplementation
Follow up bronchoscopy fluid studies
Ultimately he will need follow up CT chest in 6 weeks to follow GGO changes to resolution.
Will continue to briefly follow along
Assessment
-
78-year-old male with complex medical history including recurrent hyponatremia, autoimmune hemolytic anemia, hypertension bullous pemphigoid who presents with increased shortness of breath for few days. He was found to be anemic. We are asked to
comment on his pulmonary process
Bilateral patchy infiltrates - DDx is acute pulmonary edema vs inflammatory pneumonitis vs pneumonia; DAH rule dout given no blood seen on serial aliquots during BAL on 01/09/2024
History of hemolytic anemia
Warm antibody autoimmune hemolysis
Rituxan therapy monthly
On chronic prednisone therapy
Recurrent left pleural effusion
s/p Thora 09/26, 09/28, 10/09 (cytology Neg)
Mild MR, moderate AR
PA pressure 35
Normal biventricular function
Hyponatremia/hypokalemia
Elevated lactate
Depressed IgG
Conditions present prior to admission
History of SVT
History of stroke
History of recurrent hyponatremia/SIADH
Chronic autoimmune hemolytic anemia
Hypertension
History of bullous pemphigoid
History of colon cancer 2018
Hypothyroidism
BPH
Diverticulosis
Plan/recommendations
Salient features include chronic high-dose steroid therapy, recent Rituxan therapy 1 month ago, now presents with progressive shortness of breath, lower extremity edema and chest x-ray suggestive of bilateral infiltrates
History of recurrent left pleural effusion noted, drained x 3 back in September and October 2023, has not recurred
Anemia noted, specifically in the setting of lack of obvious hemolysis per Hematology correspondence
At risk for diffuse alveolar hemorrhage given autoimmune process
-
Remains on supplemental oxygen @ 2 L of supplemental oxygen, not worsening
-
Status post transfusion on 01/02 + 01/04/2024, hemoglobin now slowly downtrending post-transfusion
Negative fluid balance-cardiology has signed off.Now on oral Lasix BID
-
Chest x-ray- persistent bilateral infiltrates
CT chest 01/06/2024: Reviewed,
Showed widespread bilateral predominantly centrally located groundglass opacities new compared to prior study. Infectious, pulmonary edema, inflammatory. Tiny right and left pleural effusion.
-
Possible infectious etiology: Afebrile without leukocytosis.
For now we will continue with empiric antibiotics- Zosyn/Vanco. Would complete total 7-10 days of antibiotics.
Follow-up blood cultures
MRSA screen positive.
All other cultures negative.
Hopefully can narrow down antibiotics soon
-
Echocardiogram normal with increased ProBNP on admission.
Status post IV diuretic.
On oral diuretics. Twice a day.
Patient with complex volume status, difficulty to determine whether intermittently dry
patient does have chronic lower extremity swelling which has improved since admission.
-
Differential also includes opportunistic infection, pneumocystis, fungal infection.
Less likely as he is improving.
I discussed the case with Oncology, and considering that the pt is at risk for DAH with now downtrending Hb, and there is still concern for atypical infection, bronch with BAL would be helpful. Patient underwent bronchoscopy with BAL on 01/08 - sent
for respiratory culture, fungus culture, AFB, viral Cx, and PCP/silver stain
-
For hemolytic anemia patient remains on prednisone 40 mg. No evidence for ongoing hemolysis per hematology.
Hematology has evaluated the patient this admission.
Patient received 2 units of packed red blood cells this admission with improvement in hemoglobin.
Trend hemoglobin, currently stable
-
Inflammatory pneumonitis from Rituxan therapy also possibility. Continue steroids for now with prednisone and slow taper.
-
Assess oxygen needs prior DC. Patient not on home oxygen
Wean oxygen as able, maintain saturation greater than 89%
Will continue to follow
Total time spent today was 35 minutes for this encounter. Time includes reviewing laboratory test/imaging results, reviewing pertinent medical records, obtaining and reviewing medical history, performing an appropriate exam, ordering medications,
tests and procedures. Time also includes documentation of this encounter, coordinating patient care and communicating with other healthcare professionals. Total time does not include separately billed tests performed on this date of service.
Data:
CT Chest without contrast 01-06-2024:
Widespread bilateral predominantly central groundglass opacities new in the interval since prior study. Findings are nonspecific and may be inflammatory/infectious or represent pulmonary edema.
New tiny right pleural effusion and tiny left pleural effusion significantly decreased.
Old granulomatous disease as noted by calcified left hilar lymph nodes and small calcified left lower lobe pulmonary nodule again seen.
Subjective Data
-
Date of Service:
Date of Service: January 10, 2024
Chief Complaint: Pulmonary Follow Up and Dyspnea Follow Up
Subjective:
Patient seen today at bedside. Bronchoscopy performed yesterday and cultures still show no growth to date. He says that his breathing is well today. He is on 2 L/min and breathing comfortably. No acute events reported from overnight. Currently
denies chest pain, headache, shortness of breath at rest, fevers or chills.
Review of Systems
General: Other (Negative unless mentioned above)
Objective Data
Data Reviewed
Vital Signs / I&O / Oxygen:
Vital Signs
Temp Pulse Resp BP Pulse Ox
97.5 F 69 17 101/64 95
01/10/24 15:19 01/10/24 15:19 01/10/24 15:19 01/10/24 15:19 01/10/24 15:19
Intake and Output
01/09/24 01/10/24 01/11/24
06:59 06:59 06:59
Intake Total 1080 / 1080 1920 / 1920
Output Total 1650 / 1650 400 / 400
Balance -570 / -570 1520 / 1520
SaO2 95
Nasal Cannula flow liters per 2
minute
Physical Exam
General: Respiratory Distress (negative) and Comfortable
HEENT: Normocephalic and Anicteric
Cardiovascular: S1-S2, Murmur (n), Rub (n) and Peripheral Edema (+1 LE pitting edema)
Respiratory: Wheeze (n), Crackles (bilateral), Rhonchi (n) and Non-Labored Respirations
GI: Soft, Non Distended and Non Tender
Neurology: AO x 3 and Tremors (n)
Skin: Warm, Dry, Jaundice (n), Rash (n) and Bruising (n)
Labs/Micro/Reports
Lab Data
01/10/24 09:53
01/09/24 06:11
Microbiology
01/09/24 10:38 Bronch Right Middle Lobe Respiratory Culture - Preliminary
Usual Respiratory Kelle
01/09/24 10:38 Bronch Right Middle Lobe Gram Stain - Preliminary
01/09/24 10:38 Bronchoalveolar Lavage Fungal Culture - Preliminary
Culture in progress.
Positive cultures are reported as soon as detected.
Final report to follow in four to five weeks.
--- NOTE | 2024-01-10 13:28 | CM ---
Addendum entered by Rolanda Alfonso 01/10/24 15:45:
IMM completed.
Original Note:
Patient seen bedside with spouse.
Continues on oxygen 2 liters per min.
Continues IV anbx and po steroids.
Patient will need a home oxygen assessment.
TT to MD will order in am.
Patient chose [employer] for home oxygen needs.
Plan: home with possible home oxygen needs.
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
[2024-01-10 15:15] LABS: Reticulocyte Count 8.5 % (0.4-2.8)
[2024-01-10 15:19] VITALS: BP 101/64
--- NOTE | 2024-01-10 16:39 | W.PN.HOSP.TC ---
Today's Communication/Plan
-
Continue bactrim
Continue prednisone
Await bronch results
Appreciate pulmonary and infectious disease
Assessment / Plan
Assessment / Plan
Physical Exam
General: Not in acute distress
HEENT: Normocephalic, Moist mucous membranes and Atraumatic
Respiratory: Crackles bilaterally.
Cardiac: S1/S2.
GI: Soft, Non Tender, Non Distended and Normal Bowel Sounds
Musculoskeletal: No Cyanosis
Skin: Warm. Dry.
Neuro: Nonfocal/grossly intact
Psych: no agitation, calm.

Assessment/Plan
78 male came in with shortness of breath and anemia. History of hemolytic anemia but testing not compatible with hemolysis event. As of January 07, 2024 he received 2 units of blood - he needed blood from [employer] due to antibodies. His hemoglobin
stable as of January 07, 2024. Prednisone is causing him significant muscle weakness/myopathy in lower extremity. Diagnosed with possible bilateral pneumonia. On IV antibiotics. CT chest done and possibly also pulmonary edema. IV Lasix was given.
Oncology/pulmonary/cardiology are seeing him.
# Hemorrhoidal bleeding, mild in severity
-Hydrocortisone suppository
# History of WILLEM Conner positive hemolytic anemia
# Hyperproliferative (elevated reticulocyte count) recurrent acute anemia
# History of WILLEM Conner positive hemolytic anemia
# Lymphopenia likely post Rituxan
# Hypogammaglobulinemia
Warm antibody autoimmune hemolysis
Rituxan therapy monthly
On chronic prednisone therapy: taper prednisone as per hematology: taper Prednisone 40mg/day 01/09/24 and further taper as able
s/p transfusion of 2 units
Continue folic acid
Appreciate hematology input
Transfuse w/ least incompatible blood from the [place] as needed to maintain Hgb >7
# Sepsis (leukocytosis, tachycardia, borderline hypoxic, weakness) secondary to interstitial pneumonia in the setting of immunocompromise status from recent Rituxan
Acute hypoxic respiratory failure.
Bilateral patchy infiltrates
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
Recurrent left pleural effusion - resolved
-Status post Vancomycin and Zosyn
-Appreciate pulmonary input
-Differential diagnosis also includes opportunistic infection, pneumocystis, fungal infection, and inflammatory pneumonitis
-Bronchoscopy performed on January 09, 2024 and BAL sent for fungus, respiratory and AFB, viral, RSV, legionella DFA, and PCP rule out (Silver stain)
-At risk for diffuse alveolar hemorrhage given autoimmune process
-Consult ID for prophylaxis against opportunistic infections given steroid and Rituxan use
-Continue empiric PJP treatment with Bactrim DS 2 tabs tid
-Hold PO potassium while on Bactrim
# Acute on chronic heart failure with a preserved ejection fraction.
-Echo noted
-Status post IV Lasix
-Continue with Lasix 40 mg PO daily
-Appreciate cardiology input, recommendations appreciated
# Hypokalemia, replaced
# Hyponatremia, History of hyponatremia associated seizure
# History of recurrent hyponatremia/SIADH
Sodium stable in the low 130s
No confusion
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 Continue sodium tablets and urea with the fluid restriction. S/p one dose of Tolvaptan 5/2.
#History of SVT
-Continue metoprolol
#Mild to moderate aortic regurgitation
#Essential hypertension
#Recurrent left pleural effusion
Chest x ray on admission no significant left effusion, CT showed decreasing volume.
#Hypothyroidism
-Continue levothyroxine
#Bullous pemphigoid
#History of CVA
-Continue statin & aspirin.
BPH
Diverticulosis
Chronic multilevel vertebral body endplate fractures
History of fatty liver
History of bullous pemphigoid
History of colon cancer 2018
Hypothyroidism
BPH
Diverticulosis
DNR/DNI
DVT prophylaxis�heparin
Cardiac diet
Anticipated Discharge: 24 - 48 hours
Subjective/Interval History
-
Date of Service: January 10, 2024
Patient was seen and examined. He reported that he would like to stay one more day to be monitored. He reported a little exhaustion but otherwise denied any other new, significant symptoms or complaints.
Objective Data
-
Labs:
Laboratory Results
01/10/24 01/10/24
09:53 19:30
WBC 2.1 L*
Hgb 8.7 L
Hct 26.7 L
Plt Count 201
Sodium Pending
Potassium Pending
Chloride Pending
Carbon Dioxide Pending
BUN Pending
Creatinine Pending
Glucose Pending
Calcium Pending
Vital Signs:
Vital Signs
Temp Pulse Resp BP Pulse Ox
97.5 F 69 17 101/64 95
01/10/24 15:19 01/10/24 15:19 01/10/24 15:19 01/10/24 15:19 01/10/24 15:19
I&O
01/09/24 01/10/24 01/11/24
06:59 06:59 06:59
Intake Total 1080 / 1080 1920 / 1920
Output Total 1650 / 1650 400 / 400
Balance -570 / -570 1520 / 1520
[2024-01-10] MEDS: LIPITOR 40 MG PO (17:00)
[2024-01-10 20:44] LABS: Blood Urea Nitrogen 42 mg/dl (9-20); Calcium 8.6 mg/dl (8.4-10.2); Carbon Dioxide 21 mmol/L (22-30); Chloride 102 mmol/L (98-107); Estimated Creatinine Clearance 61 ml/min; Glucose 125 mg/dl (70-99); Potassium 4.4 mmol/L (3.5-5.1); Sodium 129 mmol/L (135-145); eGFR > 60.00
[2024-01-10 23:08] VITALS: BP 111/61
[2024-01-11] MEDS: SYNTHROID 75 MCG PO (05:06)
[2024-01-11 06:00] VITALS: BMI 25.4
[2024-01-11 07:08] LABS: Mean Corpuscular Hgb 31.9 pg (27.0-31.0); Mean Corpuscular Volume 99.6 fL (80.0-94.0); Mean Platelet Volume 10.5 fL (7.4-10.4); Platelet Count 228 10^3/uL (130-400); Red Blood Cell Count 2.51 10^6/uL (4.70-6.10); Red Cell Dist. Width 16.3 % (11.5-14.5)
[2024-01-11 07:11] LABS: White Blood Cell Count 0.9 10^3/uL (4.8-10.8)
[2024-01-11 07:38] VITALS: BP 123/63
[2024-01-11 07:43] LABS: Blood Urea Nitrogen 41 mg/dl (9-20); Calcium 8.3 mg/dl (8.4-10.2); Carbon Dioxide 22 mmol/L (22-30); Chloride 104 mmol/L (98-107); Estimated Creatinine Clearance 76 ml/min; Glucose 75 mg/dl (70-99); Potassium 4.2 mmol/L (3.5-5.1); Sodium 129 mmol/L (135-145); eGFR > 60.00
[2024-01-11] MEDS: PROCTOFOAM-HC FOAM RECTAL (08:49)
[2024-01-11] MEDS: MIRALAX PO (08:49)
[2024-01-11] MEDS: HEPARIN 5000 UNITS SC ×2 (08:55→19:46)
[2024-01-11] MEDS: SODIUM CHLORIDE 1 GRAM PO ×2 (08:55→19:46)
[2024-01-11] MEDS: PROTONIX 40 MG PO (08:55)
[2024-01-11] MEDS: TOPROL XL PO ×2 (08:55→19:49)
[2024-01-11] MEDS: URE-NA 15 GRAMS PO ×2 (08:55→19:46)
[2024-01-11] MEDS: VITAMIN B-12 1000 MCG PO (08:55)
[2024-01-11] MEDS: LASIX 40 MG PO (08:55)
[2024-01-11] MEDS: BACTRIM DS 800 MG/160 MG 2 TABLET PO ×3 (08:55→21:37)
[2024-01-11] MEDS: DELTASONE 40 MG PO (08:55)
[2024-01-11] MEDS: FOLVITE 1 MG PO (08:55)
[2024-01-11] MEDS: ASPIR LOW (ENTERIC COATED) 81 MG PO (08:55)
[2024-01-11] MEDS: VITAMIN D3 (cholecalciferol) 25 MCG PO (08:55)
--- NOTE | 2024-01-11 10:40 | W.PN.PUL3 ---
Today's Communication / Plan
-
Continue prednisone with slow taper
Granix as per hematology
Diuretics
s/p antibiotics
Continue oxygen supplementation with walk study prior to discharge
Follow up bronchoscopy fluid studies
Ultimately he will need follow up CT chest in 6 weeks to follow GGO changes to resolution.
Will continue to briefly follow along
Assessment
-
78-year-old male with complex medical history including recurrent hyponatremia, autoimmune hemolytic anemia, hypertension bullous pemphigoid who presents with increased shortness of breath for few days. He was found to be anemic. We are asked to
comment on his pulmonary process
Impression:
Bilateral patchy infiltrates - DDx is acute pulmonary edema vs inflammatory pneumonitis vs pneumonia; DAH ruled out given no blood seen on serial aliquots during BAL on 01/09/2024
History of hemolytic anemia
Warm antibody autoimmune hemolysis
Rituxan therapy monthly
On chronic prednisone therapy
Recurrent left pleural effusion
s/p Thora 09/26, 09/28, 10/09 (cytology Neg)
Mild MR, moderate AR
PA pressure 35
Normal biventricular function
Hyponatremia/hypokalemia
Elevated lactate
Depressed IgG
Pancytopenia now on granix
Conditions present prior to admission
History of SVT
History of stroke
History of recurrent hyponatremia/SIADH
Chronic autoimmune hemolytic anemia
Hypertension
History of bullous pemphigoid
History of colon cancer 2018
Hypothyroidism
BPH
Diverticulosis
Plan/recommendations
Salient features include chronic high-dose steroid therapy, recent Rituxan therapy 1 month ago, now presents with progressive shortness of breath, lower extremity edema and chest x-ray suggestive of bilateral infiltrates
History of recurrent left pleural effusion noted, drained x 3 back in September and October 2023, has not recurred
Anemia noted, specifically in the setting of lack of obvious hemolysis per Hematology correspondence
At risk for diffuse alveolar hemorrhage given autoimmune process
-
Remains on supplemental oxygen @ 2 L of supplemental oxygen, not worsening
-
Status post transfusion on 01/02 + 01/04/2024, hemoglobin now slowly downtrending post-transfusion
Negative fluid balance-cardiology has signed off.Now on oral Lasix daily
-
Chest x-ray- persistent bilateral infiltrates
CT chest 01/06/2024: Reviewed,
Showed widespread bilateral predominantly centrally located groundglass opacities new compared to prior study. Infectious, pulmonary edema, inflammatory. Tiny right and left pleural effusion.
-
Possible infectious etiology: Afebrile without leukocytosis.
patient is s/p course of ABx with Zosyn/Vanco
Given his neutropenia with extended steroid usage, bactrim DS started on 01/08
Follow-up blood cultures and follow up BAL cultures and cytology
MRSA screen positive.
-
Echocardiogram normal with increased ProBNP on admission.
Status post IV diuretic.
On oral diuretics. Once a day.
Patient with complex volume status, difficulty to determine whether intermittently dry
patient does have chronic lower extremity swelling which has improved since admission.
-
Differential also includes opportunistic infection, pneumocystis, fungal infection.
Less likely as he is improving.
I discussed the case with Oncology, and considering that the pt is at risk for DAH with now downtrending Hb, and there is still concern for atypical infection, bronch with BAL would be helpful. Patient underwent bronchoscopy with BAL on 01/08 - sent
for respiratory culture, fungus culture, AFB, viral Cx, and PCP/silver stain DAH ruled out as no bloody seen upon serial aliquots of fluid return
-
For hemolytic anemia patient remains on prednisone 40 mg. No evidence for ongoing hemolysis per hematology.
Hematology has evaluated the patient this admission.
Patient received 2 units of packed red blood cells this admission with improvement in hemoglobin.
Trend hemoglobin and tranfuse to keep Hb>7, and keep plt>20k
Granix as per hematology; trend ANC count
-
Inflammatory pneumonitis from Rituxan therapy also possibility. Continue steroids for now with prednisone and slow taper.
-
Assess oxygen needs prior DC. Patient not on home oxygen
Wean oxygen as able, maintain saturation greater than 89%
Will continue to briefly follow.
Total time spent today was 35 minutes for this encounter. Time includes reviewing laboratory test/imaging results, reviewing pertinent medical records, obtaining and reviewing medical history, performing an appropriate exam, ordering medications,
tests and procedures. Time also includes documentation of this encounter, coordinating patient care and communicating with other healthcare professionals. Total time does not include separately billed tests performed on this date of service.
Data:
CT Chest without contrast 01-06-2024:
Widespread bilateral predominantly central groundglass opacities new in the interval since prior study. Findings are nonspecific and may be inflammatory/infectious or represent pulmonary edema.
New tiny right pleural effusion and tiny left pleural effusion significantly decreased.
Old granulomatous disease as noted by calcified left hilar lymph nodes and small calcified left lower lobe pulmonary nodule again seen.
Subjective Data
-
Date of Service:
Date of Service: January 11, 2024
Chief Complaint: Pulmonary Follow Up and Dyspnea Follow Up
Subjective:
Patient seen this morning. He feels depressed because he still has to remain in the hospital as his white count continues to drop - Granix is being started by hematology. at bedside. All questions were answered. Patient currently on 2 L/min
nasal cannula, breathing comfortably. He denies chest pain, headache, abdominal pain, shortness of breath, fevers or chills. He is able to walk around the room and denies any respiratory complaints.
Review of Systems
General: Other (Negative unless mentioned above)
Objective Data
Data Reviewed
Vital Signs / I&O / Oxygen:
Vital Signs
Temp Pulse Resp BP Pulse Ox
97.5 F 74 17 111/67 97
01/11/24 15:51 01/11/24 15:51 01/11/24 15:51 01/11/24 15:51 01/11/24 15:51
Intake and Output
01/10/24 01/11/24 01/12/24
06:59 06:59 06:59
Intake Total 1920 / 1920 1560 / 1560 660 / 660
Output Total 400 / 400 1725 / 1725 650 / 650
Balance 1520 / 1520 -165 / -165
SaO2 97
Nasal Cannula flow liters per 1.5
minute
Physical Exam
General: Respiratory Distress (negative) and Comfortable
HEENT: Normocephalic and Anicteric
Cardiovascular: S1-S2, Murmur (n), Rub (n) and Peripheral Edema (+2 LE pitting edema)
Respiratory: Wheeze (n), Crackles (negative), Rhonchi (n), Non-Labored Respirations and Other (coarse breath sounds bilaterally)
GI: Soft, Non Distended and Non Tender
Neurology: AO x 3 and Tremors (n)
Skin: Warm, Dry, Jaundice (n), Rash (n) and Bruising (n)
Labs/Micro/Reports
Lab Data
01/11/24 06:18
01/11/24 06:18
Microbiology
01/09/24 10:38 Bronch Right Middle Lobe Respiratory Culture - Final
Usual Respiratory Kelle
01/09/24 10:38 Bronch Right Middle Lobe Gram Stain - Final
01/09/24 10:38 Bronchoalveolar Lavage Fungal Culture - Preliminary
Culture in progress.
Positive cultures are reported as soon as detected.
Final report to follow in four to five weeks.
[2024-01-11 11:20] VITALS: PULSE 110; O2SAT 99
[2024-01-11] MEDS: TOPROL XL 25 MG PO (11:21)
--- NOTE | 2024-01-11 12:04 | W.PN.ONC ---
Addendum entered and electronically signed by Giorgio Pope MD 01/11/24 14:19:
Progressive leukopenia, but differential not done today. Rituxan seems the most suspect drug. However, Bactrim may also do this, although he was beginning to develop leukopenia prior to initiation of that drug. Will begin Neupogen.
Original Note:
Today's Communication / Plan
-
Prednisone being tapered as able: 40mg/d as of 01/09/24
Monitor CBC w/ diff daily
01/10 WBC 0.9, Hgb 8, Hct 25, PLT 228
Neutropenic precautions, monitor ANC
Hgb is dropping, consider inpatient BMbx per Dr. Rojas if Hgb drops below 8
Transfuse as needed with least incompatible blood to maintain Hgb >7
[facility] FLAER was ordered and sent 01/09
01/08 s/p bronchoscopy, awaiting cultures
Bactrim ordered per ID
Supportive care, emotional support
We will follow closely.
Impression
Impression
Hyperproliferative (elevated reticulocyte count) recurrent acute anemia
History of WILLEM Conner positive hemolytic anemia
SIADH/hyponatremia
Lymphopenia likely post Rituxan
Hypogammaglobulinemia
Plan
Plan
.
Subjective/Objective
Subjective/Objective
patient is OOB in the chair. he appears more rested this morning. he denies pain or any acute symptoms. denies fever,chills. he remains on 2L oxygen via [place]. his is at the bedside. they are quite frustrated and concerned regarding CBC this
morning.
Vital Signs:
Vital Signs
Temp Pulse Resp BP Pulse Ox
97.7 F 120 18 123/63 97
01/11/24 07:38 01/11/24 11:21 01/11/24 07:38 01/11/24 07:38 01/11/24 07:38
physical exam unchanged.
Lab Results:
Laboratory Data
WBC 0.9 10^3/uL (4.8-10.8) L* 01/11/24 06:18
Hgb 8.0 g/dL (13.0-18.0) L 01/11/24 06:18
Plt Count 228 10^3/uL (130-400) 01/11/24 06:18
eGFR > 60.00 01/11/24 06:18
Orders
Orders
Orders From Last 24 Hours
01/10/24 14:50
Reticulocyte Count Urgent
01/11/24 08:00
Add On- LAB Urgent
--- NOTE | 2024-01-11 13:15 | W.PN.ID1 ---
Date of Service
Date of Service: January 11, 2024
Today's Communication
See below.
Continue Bactrim.
Assessment / Plan
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
# Now neutropenic
-DDX: pulmonary toxicity from Rituxan vs PJP PNA (risk factor - prolonged high dose steroid)
- s/p bronch/BAL 01/08. Cx usual resp torri. Awaiting path/silverstain
-s/p 9 days Vancomycin/Zosyn
-Continue empiric PJP tx with Bactrim DS 2 tabs tid (d3) pending silver stain result.
Oxygen status appears to be improving without desat with ambulation.
-Hold potassium while on Bactrim.
-Follow clinically and oxygen status.
- Weaning prednisone as per Hem/Onc
- Neutropenia likely due to recent rituxan.
WBC trending down prior to Bactrim.
Hem/Onc following
#Additional Past Medical History:
Hypertension
Recurrent left pleural effusion
SVT
Hypothyroidism
Chronic SIADH
CVA
BP
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
Bullous pemphigoid
Fatty liver
Diverticulosis
Chronic lower extremity edema
Vertebral fracture
Chief Complaint
-: Pneumonia
Subjective / Review of Systems
SOB improving. Ambulated with PT and did well.
Vital Signs / Physical Exam
Vital Signs
Vital Signs
Temp Pulse Resp BP Pulse Ox
97.7 F 120 18 123/63 97
01/11/24 07:38 01/11/24 11:21 01/11/24 07:38 01/11/24 07:38 01/11/24 07:38
Physical Exam
Constitutional: No Acute Distress and Comfortable
Cardiovascular: Regular Rate and S1/S2
Pulmonary: Clear
Gastrointestinal: Soft, Non Tender and Non Distended
Extremities: Edema (BLE)
Neurological: AO x 3
Objective Data
Lab Data
Lab Results
01/11/24 06:18
01/11/24 06:18
Estimated Creat Clear 76 ml/min 01/11/24 06:18
Lactic Acid Cancelled 01/02/24 01:28
Total Bilirubin 1.9 mg/dl (0.2-1.3) H 01/08/24 05:42
AST 27 U/L (17-59) 01/08/24 05:42
ALT 32 U/L (0-50) 01/08/24 05:42
Alkaline Phosphatase 81 U/L (38-126) 01/08/24 05:42
C-Reactive Protein 28.50 mg/L (0.0-10.00) H 01/09/24 06:11
Most recent labs reviewed.
Micro Results:
01/09/24 10:38 Respiratory Culture - Preliminary
Bronch Right Middle Lobe Usual Respiratory Torri
Gram Stain - Preliminary
01/09/24 10:38 Fungal Culture - Preliminary
Bronchoalveolar Lavage Culture in progress.
Positive cultures are reported as soon as detected.
Final report to follow in four to five weeks.
01/09/24 10:38 Acid Fast Bacilli Smear - Pending
Bronchoalveolar Lavage Acid Fast Bacilli Culture - Pending
Respiratory Virus Culture - Pending
01/09/24 10:37 Specimen Source - Pending
Bronchoalveolar Lavage Legionella pneumophila (Direct FA) - Pending
Legionella Culture - Pending
01/01/24 16:02 Blood Culture - Final
Blood/Venous No Growth - Final Report
01/01/24 14:51 Blood Culture - Final
Blood/Venous No Growth - Final Report
01/02/24 09:15 Nasal Screen MRSA (PCR) - Final
Nose Staph aureus MRSA
01/01/24 17:25 Legionella Urinary Antigen - Final
Urine Negative for Legionella pneumophila Serogroup 1 antigen.
A negative result does not rule out the possiblity of
Legionella infection due to other serogroups or species of
Legionella. Clinical correlation is recommended.
Streptococcus pneumoniae Antigen (M - Final
Negative for Streptococcus pneumoniae antigen.
A negative result does not exclude infection with
Streptococcus pneumoniae. Clinical correlation is
recommended.
01/01/24 14:51 Influenza Types A & B (ORLY) - Final
Nasal Swab Negative for Influenza A & B, NAAT
Negative results must be combined with clinical observations
and patient history.
Nucleic Acid Amplification test (NAAT)performed on the
[employer] platform.
01/09/24 CXR: Persistent bilateral pulmonary parenchymal process. There appears to be slightly improved aeration in the upper lobes. Slightly increased subtle opacity in the right lower lobe.
01/06/[address]: Widespread bilateral predominantly central groundglass opacities new in the interval since prior study. Findings are nonspecific and may be inflammatory/infectious or represent pulmonary edema. New tiny right pleural effusion and
tiny left pleural effusion significantly decreased. Old granulomatous disease as noted by calcified left hilar lymph nodes and small calcified left lower lobe pulmonary nodule again seen.
01/01/24 CXR: There is moderate diffuse coarsening of the interstitial markings throughout both lungs which I favor reflects interstitial pneumonia rather than pulmonary edema though correlation with the patient's BNP is recommended.
[2024-01-11] MEDS: GRANIX 480 MCG SC (15:13)
[2024-01-11 15:51] VITALS: BP 111/67
--- NOTE | 2024-01-11 15:59 | W.PN.HOSP.TC ---
Today's Communication/Plan
-
Neutropenic precautions
Case discussed with hematology who will order Neupogen/Granix
Continue empiric Bactrim
Appreciate ID, pulm, and hematology
Assessment / Plan
Assessment / Plan
Physical Exam
General: Not in acute distress
HEENT: Normocephalic, Moist mucous membranes and Atraumatic
Respiratory: Crackles bilaterally.
Cardiac: S1/S2.
GI: Soft, Non Tender, Non Distended and Normal Bowel Sounds
Musculoskeletal: No Cyanosis
Skin: Warm. Dry.
Neuro: Nonfocal/grossly intact
Psych: no agitation, calm.

Assessment/Plan
78 male came in with shortness of breath and anemia. History of hemolytic anemia but testing not compatible with hemolysis event. As of January 07, 2024 he received 2 units of blood - he needed blood from [place] due to antibodies. His hemoglobin
stable as of January 07, 2024. Prednisone is causing him significant muscle weakness/myopathy in lower extremity. Diagnosed with possible bilateral pneumonia. On IV antibiotics. CT chest done and possibly also pulmonary edema. IV Lasix was given.
Oncology/pulmonary/cardiology are seeing him.
# Hemorrhoidal bleeding, mild in severity
-Hydrocortisone suppository
# History of WILLEM Conner positive hemolytic anemia
# Hyperproliferative (elevated reticulocyte count) recurrent acute anemia
# History of WILLEM Conner positive hemolytic anemia
# Lymphopenia likely post Rituxan
# Hypogammaglobulinemia
# Progressive Leukopenia
Warm antibody autoimmune hemolysis
Rituxan therapy monthly
On chronic prednisone therapy: taper prednisone as per hematology: taper Prednisone 40mg/day 01/09/24 and further taper as able
s/p transfusion of 2 units
Continue folic acid
Appreciate hematology input
Transfuse w/ least incompatible blood from the [place] as needed to maintain Hgb >7
Neupogen to start on January 11, 2024
Neutropenic Precautions given the leukopenia
# Sepsis (leukocytosis, tachycardia, borderline hypoxic, weakness) secondary to interstitial pneumonia in the setting of immunocompromise status from recent Rituxan
Acute hypoxic respiratory failure.
Bilateral patchy infiltrates
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
Recurrent left pleural effusion - resolved
-Status post Vancomycin and Zosyn
-Appreciate pulmonary input
-Differential diagnosis also includes opportunistic infection, pneumocystis, fungal infection, and inflammatory pneumonitis
-Bronchoscopy performed on January 09, 2024 and BAL sent for fungus, respiratory and AFB, viral, RSV, legionella DFA, and PCP rule out (Silver stain)
-At risk for diffuse alveolar hemorrhage given autoimmune process
-Consulted ID for prophylaxis against opportunistic infections given steroid and Rituxan use
-Continue empiric PJP treatment with Bactrim DS 2 tabs tid pending path/silver stain results
-Hold PO potassium while on Bactrim
# Acute on chronic heart failure with a preserved ejection fraction.
-Echo noted
-Status post IV Lasix
-Continue with Lasix 40 mg PO daily
-Appreciate cardiology input, recommendations appreciated
# Hypokalemia, replaced
# Hyponatremia, History of hyponatremia associated seizure
# History of recurrent hyponatremia/SIADH
Sodium stable in the low 130s to upper 120s
No confusion
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 Continue sodium tablets and urea with the fluid restriction. S/p one dose of Tolvaptan 5/2.
#History of SVT
-Continue metoprolol
#Mild to moderate aortic regurgitation
#Essential hypertension
#Recurrent left pleural effusion
Chest x ray on admission no significant left effusion, CT showed decreasing volume.
#Hypothyroidism
-Continue levothyroxine
#Bullous pemphigoid
#History of CVA
-Continue statin & aspirin.
BPH
Diverticulosis
Chronic multilevel vertebral body endplate fractures
History of fatty liver
History of bullous pemphigoid
History of colon cancer 2019
Hypothyroidism
BPH
Diverticulosis
DNR/DNI
DVT prophylaxis�heparin
Cardiac diet
Anticipated Discharge: > 48 hours
Subjective/Interval History
-
Date of Service: January 11, 2024
Patient was seen and examined. He reported his breathing felt better today, he denied any new symptoms or complaints.
Objective Data
-
Labs:
Laboratory Results
01/11/24
06:18
WBC 0.9 L*
Hgb 8.0 L
Hct 25.0 L
Plt Count 228
Sodium 129 L
Potassium 4.2
Chloride 104
Carbon Dioxide 22
BUN 41 H
Creatinine 0.8
Glucose 75
Calcium 8.3 L
Vital Signs:
Vital Signs
Temp Pulse Resp BP Pulse Ox
97.5 F 74 17 111/67 97
01/11/24 15:51 01/11/24 15:51 01/11/24 15:51 01/11/24 15:51 01/11/24 15:51
I&O
01/10/24 01/11/24 01/12/24
06:59 06:59 06:59
Intake Total 1920 / 1920 1560 / 1560
Output Total 400 / 400 1725 / 1725
Balance 1520 / 1520 -165 / -165
[2024-01-11] MEDS: LIPITOR 40 MG PO (17:07)
[2024-01-11 23:53] VITALS: BP 111/66
[2024-01-12] MEDS: SYNTHROID 75 MCG PO (05:01)
[2024-01-12 05:52] VITALS: BMI 25.2
[2024-01-12] MEDS: MIRALAX PO (07:30)
[2024-01-12 07:34] VITALS: BP 106/64
[2024-01-12] MEDS: GRANIX 480 MCG SC (07:35)
[2024-01-12] MEDS: SODIUM CHLORIDE 1 GRAM PO ×2 (07:35→20:24)
[2024-01-12] MEDS: URE-NA 15 GRAMS PO ×2 (07:35→20:25)
[2024-01-12] MEDS: PROTONIX 40 MG PO (07:36)
[2024-01-12] MEDS: BACTRIM DS 800 MG/160 MG 2 TABLET PO ×3 (07:36→21:03)
[2024-01-12] MEDS: VITAMIN D3 (cholecalciferol) 25 MCG PO (07:36)
[2024-01-12] MEDS: VITAMIN B-12 1000 MCG PO (07:36)
[2024-01-12] MEDS: ASPIR LOW (ENTERIC COATED) 81 MG PO (07:36)
[2024-01-12] MEDS: FOLVITE 1 MG PO (07:36)
[2024-01-12] MEDS: TOPROL XL 25 MG PO (07:36)
[2024-01-12] MEDS: DELTASONE 40 MG PO (07:36)
[2024-01-12] MEDS: LASIX 40 MG PO (07:36)
[2024-01-12] MEDS: HEPARIN 5000 UNITS SC ×2 (07:37→20:24)
[2024-01-12] MEDS: PROCTOFOAM-HC FOAM RECTAL (07:37)
[2024-01-12 07:47] VITALS: BP 99/60
[2024-01-12 08:23] LABS: % Basophils 2.5 % (0-2); % Eosinophils 6.7 % (0-6); % Immature Granulocytes 6.7 % (0-0.5); % Lymphocytes 22.5 % (20.5-51.1); % Neutrophils 31.6 % (42.2-75.2); Absolute Eosinophils 0.1 10^3/uL (0-0.7); Absolute Immature Granulocytes 0.1 10^3/uL (0-0.05); Absolute Lymphocytes 0.3 10^3/uL (1.2-3.4); Absolute Monocytes 0.4 10^3/uL (0.1-0.6); Hematocrit 26.4 % (39.0-52.0); Hemoglobin 8.4 g/dL (13.0-18.0); Mean Corp Hgb Conc. 31.8 g/dL (33.0-37.0); Mean Corpuscular Hgb 31.6 pg (27.0-31.0); Mean Corpuscular Volume 99.2 fL (80.0-94.0); Mean Platelet Volume 10.6 fL (7.4-10.4); Nucleated Red Blood Cells % 11.7 % (-); Platelet Count 223 10^3/uL (130-400); Red Blood Cell Count 2.66 10^6/uL (4.70-6.10); Red Cell Dist. Width 16.5 % (11.5-14.5)
[2024-01-12 09:01] LABS: Blood Urea Nitrogen 37 mg/dl (9-20); Calcium 8.7 mg/dl (8.4-10.2); Carbon Dioxide 19 mmol/L (22-30); Chloride 102 mmol/L (98-107); Estimated Creatinine Clearance 76 ml/min; Glucose 75 mg/dl (70-99); Potassium 4.3 mmol/L (3.5-5.1); Sodium 130 mmol/L (135-145); eGFR > 60.00
[2024-01-12 10:19] LABS: White Blood Cell Count 1.2 10^3/uL (4.8-10.8)
[2024-01-12 12:22] LABS: Absolute Neutrophils 0.4 10^3/uL (1.4-6.5)
[2024-01-12 15:00] VITALS: BP 102/64
--- NOTE | 2024-01-12 15:09 | W.PN.PUL3 ---
Today's Communication / Plan
-
Continue with supportive care
Prednisone continues per oncology
Remains on Bactrim therapy
DVT prophylaxis
Encourage increased activity, PT/OT
Assessment
-
78-year-old male with complex medical history including recurrent hyponatremia, autoimmune hemolytic anemia, hypertension bullous pemphigoid who presents with increased shortness of breath for few days. He was found to be anemic. We are asked to
comment on his pulmonary process
Bilateral patchy infiltrates - DDx is acute pulmonary edema vs inflammatory pneumonitis vs pneumonia; DAH ruled out given no blood seen on serial aliquots during BAL on 01/09/2024
History of hemolytic anemia
Warm antibody autoimmune hemolysis
Rituxan therapy monthly
On chronic prednisone therapy
Recurrent left pleural effusion
s/p Thora 09/26, 09/28, 10/09 (cytology Neg)
Mild MR, moderate AR
PA pressure 35
Normal biventricular function
Hyponatremia/hypokalemia
Elevated lactate
Depressed IgG
Pancytopenia now on granix
Conditions present prior to admission
History of SVT
History of stroke
History of recurrent hyponatremia/SIADH
Chronic autoimmune hemolytic anemia
Hypertension
History of bullous pemphigoid
History of colon cancer 2018
Hypothyroidism
BPH
Diverticulosis
Plan/recommendations
At this time, patient appears to be stable from a pulmonary standpoint
Ongoing neutropenia noted
Salient features include chronic high-dose steroid therapy, recent Rituxan therapy 1 month ago, now presents with progressive shortness of breath, lower extremity edema and chest x-ray suggestive of bilateral infiltrates
History of recurrent left pleural effusion noted, drained x 3 back in September and October 2023, has not recurred
Anemia noted, specifically in the setting of lack of obvious hemolysis per Hematology correspondence
At risk for diffuse alveolar hemorrhage given autoimmune process
Remains on supplemental oxygen @ 2 L of supplemental oxygen, not worsening
Status post transfusion on 01/02 + 01/04/2024, hemoglobin now slowly downtrending post-transfusion
Negative fluid balance-cardiology has signed off.Now on oral Lasix daily
Chest x-ray- persistent bilateral infiltrates, no change
CT chest 01/06/2024: Reviewed,
Showed widespread bilateral predominantly centrally located groundglass opacities new compared to prior study. Infectious, pulmonary edema, inflammatory. Tiny right and left pleural effusion.
Possible infectious etiology: Afebrile without leukocytosis.
patient is s/p course of ABx with Zosyn/Vanco
Given his neutropenia with extended steroid usage, bactrim DS started on 01/08
Follow-up blood cultures and follow up BAL cultures and cytology
MRSA screen positive
ID following
Echocardiogram normal with increased ProBNP on admission.
Status post IV diuretic.
On oral diuretics. Once a day.
Patient with complex volume status, difficulty to determine whether intermittently dry
patient does have chronic lower extremity swelling which has improved since admission.
-
Differential also includes opportunistic infection, pneumocystis, fungal infection.
Less likely as he is improving.
Patient underwent bronchoscopy with BAL on 01/08 - sent for respiratory culture, fungus culture, AFB, viral Cx, and PCP/silver stain DAH ruled out as no bloody seen upon serial aliquots of fluid return
For hemolytic anemia patient remains on prednisone 40 mg. No evidence for ongoing hemolysis per hematology.
Hematology has evaluated the patient this admission.
Patient received 2 units of packed red blood cells this admission with improvement in hemoglobin.
Trend hemoglobin and tranfuse to keep Hb>7, and keep plt>20k
Granix as per hematology; trend ANC count
Inflammatory pneumonitis from Rituxan therapy also possibility. Continue steroids for now with prednisone and slow taper.
Assess oxygen needs prior DC. Patient not on home oxygen
Wean oxygen as able, maintain saturation greater than 89%
Ongoing disposition efforts
Data:
CT Chest without contrast 01-06-2024:
Widespread bilateral predominantly central groundglass opacities new in the interval since prior study. Findings are nonspecific and may be inflammatory/infectious or represent pulmonary edema.
New tiny right pleural effusion and tiny left pleural effusion significantly decreased.
Old granulomatous disease as noted by calcified left hilar lymph nodes and small calcified left lower lobe pulmonary nodule again seen.
Subjective Data
-
Date of Service:
Date of Service: January 12, 2024
Chief Complaint: Pulmonary Follow Up and Dyspnea Follow Up
Subjective:
Patient seen earlier this morning. Late entry. Patient continues to have no complaints. He is complaining of fatigue but otherwise denies cough, chest pain, hemoptysis, nausea, abdominal pain. He remains on nasal cannula. Neutropenia noted and
continues
Objective Data
Data Reviewed
Vital Signs / I&O / Oxygen:
Vital Signs
Temp Pulse Resp BP Pulse Ox
97.7 F 76 18 99/60 95
01/12/24 07:47 01/12/24 07:47 01/12/24 07:47 01/12/24 07:47 01/12/24 07:47
Intake and Output
01/11/24 01/12/24 01/13/24
06:59 06:59 06:59
Intake Total 1560 / 1560 1140 / 1140
Output Total 1725 / 1725 1150 / 1150
Balance -165 / -165 -10 / -10
SaO2 95
Nasal Cannula flow liters per 1
minute
Physical Exam
General: Comfortable
HEENT: Normocephalic and Anicteric
Cardiovascular: S1-S2, Regular Rhythm, Murmur (n), Rub (n) and Peripheral Edema (+2 LE pitting edema)
Respiratory: Wheeze (n), Crackles (negative), Rhonchi (n), Non-Labored Respirations and Other (Few coarse breath sounds posteriorly)
GI: Soft, Non Distended and Non Tender
Neurology: Awake, Alert, Oriented and No Motor Deficits (Moves all extremities, able to sit up with minimal assistance)
Skin: Jaundice (n), Rash (n) and Bruising (n)
Labs/Micro/Reports
Lab Data
01/12/24 07:44
01/12/24 07:44
Microbiology
01/09/24 10:38 Bronchoalveolar Lavage Fungal Culture - Preliminary
Yeast
01/09/24 10:38 Bronchoalveolar Lavage Acid Fast Bacilli Smear - Preliminary
01/09/24 10:38 Bronchoalveolar Lavage Acid Fast Bacilli Culture - Preliminary
01/09/24 10:38 Bronchoalveolar Lavage Respiratory Virus Culture - Preliminary
01/09/24 10:38 Bronch Right Middle Lobe Respiratory Culture - Final
Usual Respiratory Kelle
01/09/24 10:38 Bronch Right Middle Lobe Gram Stain - Final
[2024-01-12] MEDS: LIPITOR 40 MG PO (17:16)
--- NOTE | 2024-01-12 17:42 | W.PN.HOSP.TC ---
Today's Communication/Plan
-
WBC gradually improving with Granix
Continue bactrim, to be continued/not continued as per ID
Assessment / Plan
Assessment / Plan
Physical Exam
General: Not in acute distress
HEENT: Normocephalic, Moist mucous membranes and Atraumatic
Respiratory: Crackles bilaterally.
Cardiac: S1/S2.
GI: Soft, Non Tender, Non Distended and Normal Bowel Sounds
Musculoskeletal: No Cyanosis
Skin: Warm. Dry.
Neuro: Nonfocal/grossly intact
Psych: no agitation, calm.

Assessment/Plan
78 male came in with shortness of breath and anemia. History of hemolytic anemia but testing not compatible with hemolysis event. As of January 07, 2024 he received 2 units of blood - he needed blood from [facility] due to antibodies. His hemoglobin
stable as of January 07, 2024. Prednisone is causing him significant muscle weakness/myopathy in lower extremity. Diagnosed with possible bilateral pneumonia. On IV antibiotics. CT chest done and possibly also pulmonary edema. IV Lasix was given.
Oncology/pulmonary/cardiology are seeing him.
# Hemorrhoidal bleeding, mild in severity
-Hydrocortisone suppository
# History of WILLEM Conner positive hemolytic anemia
# Hyperproliferative (elevated reticulocyte count) recurrent acute anemia
# History of WILLEM Conner positive hemolytic anemia
# Lymphopenia likely post Rituxan
# Hypogammaglobulinemia
# Progressive Leukopenia
Warm antibody autoimmune hemolysis
Rituxan therapy monthly
On chronic prednisone therapy: taper prednisone as per hematology: taper Prednisone 40mg/day 01/09/24 and further taper as able
s/p transfusion of 2 units
Continue folic acid
Appreciate hematology input
Transfuse w/ least incompatible blood from the [place] as needed to maintain Hgb >7
Granix to start on January 11, 2024 -- WBC count improving
Neutropenic Precautions given the leukopenia
# Sepsis (leukocytosis, tachycardia, borderline hypoxic, weakness) secondary to interstitial pneumonia in the setting of immunocompromise status from recent Rituxan
Acute hypoxic respiratory failure.
Bilateral patchy infiltrates
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
Recurrent left pleural effusion - resolved
-Status post Vancomycin and Zosyn
-Appreciate pulmonary input
-Differential diagnosis also includes opportunistic infection, pneumocystis, fungal infection, and inflammatory pneumonitis
-Bronchoscopy performed on January 09, 2024 and BAL sent for fungus, respiratory and AFB, viral, RSV, legionella DFA, and PCP rule out (Silver stain)
-At risk for diffuse alveolar hemorrhage given autoimmune process
-Consulted ID for prophylaxis against opportunistic infections given steroid and Rituxan use
-Continue empiric PJP treatment with Bactrim DS 2 tabs tid pending path/silver stain results
-Hold PO potassium while on Bactrim
# Acute on chronic heart failure with a preserved ejection fraction.
-Echo noted
-Status post IV Lasix
-Continue with Lasix 40 mg PO daily
-Appreciate cardiology input, recommendations appreciated
# Hypokalemia, replaced
# Hyponatremia, History of hyponatremia associated seizure
# History of recurrent hyponatremia/SIADH
Sodium stable in the low 130s to upper 120s
No confusion
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 Continue sodium tablets and urea with the fluid restriction. S/p one dose of Tolvaptan 5/2.
#History of SVT
-Continue metoprolol
#Mild to moderate aortic regurgitation
#Essential hypertension
#Recurrent left pleural effusion
Chest x ray on admission no significant left effusion, CT showed decreasing volume.
#Hypothyroidism
-Continue levothyroxine
#Bullous pemphigoid
#History of CVA
-Continue statin & aspirin.
BPH
Diverticulosis
Chronic multilevel vertebral body endplate fractures
History of fatty liver
History of bullous pemphigoid
History of colon cancer 2019
Hypothyroidism
BPH
Diverticulosis
DNR/DNI
DVT prophylaxis�heparin
Cardiac diet
Anticipated Discharge: > 48 hours
Subjective/Interval History
-
Date of Service: January 12, 2024
Patient was seen and examined. He reported feeling a little exhausted. He otherwise denied any other, new significant symptoms or complaints.
Objective Data
-
Labs:
Laboratory Results
01/12/24
07:44
WBC 1.2 L*
Hgb 8.4 L
Hct 26.4 L
Plt Count 223
Sodium 130 L
Potassium 4.3
Chloride 102
Carbon Dioxide 19 L
BUN 37 H
Creatinine 0.8
Glucose 75
Calcium 8.7
Vital Signs:
Vital Signs
Temp Pulse Resp BP Pulse Ox
97.5 F 73 18 102/64 1
01/12/24 15:00 01/12/24 15:00 01/12/24 15:00 01/12/24 15:00 01/12/24 15:00
I&O
01/11/24 01/12/24 01/13/24
06:59 06:59 06:59
Intake Total 1560 / 1560 1140 / 1140
Output Total 1725 / 1725 1150 / 1150
Balance -165 / -165 -10 / -10
--- NOTE | 2024-01-12 18:01 | W.PN.ONC2 ---
Today's Communication / Plan
-
Try to d/c next 1-2 days, will coordinate outpt bone marrow biopsy.
Impression
Impression
WILLEM Conner positive hemolytic anemia
SIADH/hyponatremia
Lymphopenia likely post Rituxan
Hypogammaglobulinemia
Plan
Plan
Pt doing better, Hgb stabilized.
Outpt bone marrow biopsy.
Would try to discharge sooner than later, we can give outpt Neulasta early next week.
Subjective/Objective
Chief Complaint
Heme/Onc follow up of hemolytic anemia, weakness
Subjective
Feels better today, breathing more comfortably
Vital Signs:
Vital Signs
Temp Pulse Resp BP Pulse Ox
97.5 F 73 18 102/64 1
01/12/24 15:00 01/12/24 15:00 01/12/24 15:00 01/12/24 15:00 01/12/24 15:00
Lab Results:
Laboratory Data
WBC 1.2 10^3/uL (4.8-10.8) L* 01/12/24 07:44
Hgb 8.4 g/dL (13.0-18.0) L 01/12/24 07:44
Plt Count 223 10^3/uL (130-400) 01/12/24 07:44
eGFR > 60.00 01/12/24 07:44
Physical Exam
Less ill-appearing
[2024-01-12] MEDS: TOPROL XL PO (20:34)
[2024-01-12 23:43] VITALS: BP 109/62
[2024-01-13] MEDS: SYNTHROID 75 MCG PO (05:08)
[2024-01-13 06:00] VITALS: BMI 25.2
[2024-01-13 06:42] LABS: Hematocrit 21.6 % (39.0-52.0); Hemoglobin 7.4 g/dL (13.0-18.0); Mean Corp Hgb Conc. 34.3 g/dL (33.0-37.0); Mean Corpuscular Hgb 32.2 pg (27.0-31.0); Mean Corpuscular Volume 93.9 fL (80.0-94.0); Mean Platelet Volume 10.7 fL (7.4-10.4); Platelet Count 204 10^3/uL (130-400); Red Cell Dist. Width 16.5 % (11.5-14.5); White Blood Cell Count 2.7 10^3/uL (4.8-10.8)
[2024-01-13 07:04] LABS: Blood Urea Nitrogen 41 mg/dl (9-20); Calcium 8.5 mg/dl (8.4-10.2); Carbon Dioxide 20 mmol/L (22-30); Chloride 102 mmol/L (98-107); Estimated Creatinine Clearance 68 ml/min; Glucose 72 mg/dl (70-99); Potassium 4.4 mmol/L (3.5-5.1); Sodium 127 mmol/L (135-145); eGFR > 60.00
[2024-01-13 07:34] VITALS: BP 117/72
[2024-01-13] MEDS: VITAMIN D3 (cholecalciferol) 25 MCG PO (09:34)
[2024-01-13] MEDS: PROTONIX 40 MG PO (09:34)
[2024-01-13] MEDS: ASPIR LOW (ENTERIC COATED) 81 MG PO (09:34)
[2024-01-13] MEDS: SODIUM CHLORIDE 1 GRAM PO ×2 (09:34→19:52)
[2024-01-13] MEDS: HEPARIN 5000 UNITS SC ×2 (09:35→19:52)
[2024-01-13] MEDS: FOLVITE 1 MG PO (09:35)
[2024-01-13] MEDS: VITAMIN B-12 1000 MCG PO (09:36)
[2024-01-13] MEDS: TOPROL XL 25 MG PO (09:48)
[2024-01-13] MEDS: URE-NA 15 GRAMS PO ×2 (09:49→19:52)
[2024-01-13] MEDS: GRANIX 480 MCG SC (09:51)
[2024-01-13] MEDS: MIRALAX PO (09:52)
[2024-01-13] MEDS: BACTRIM DS 800 MG/160 MG 2 TABLET PO ×3 (09:57→21:23)
[2024-01-13] MEDS: LASIX 40 MG PO (09:57)
[2024-01-13] MEDS: DELTASONE 40 MG PO (09:58)
[2024-01-13] MEDS: PROCTOFOAM-HC FOAM RECTAL (10:02)
[2024-01-13 12:00] LABS: Nucleated Red Blood Cells % 7.7 % (-)
[2024-01-13 12:01] LABS: Absolute Neutrophils -Man Diff 1.7 10^3/uL (1.4-6.5); Atypical Lymphocytes 2 %; Band Neutrophils 15 % (0-3); Eosinophils 2 % (0-6); Lymphocytes 16 % (20-51); Metamyelocytes 1 % (-); Monocytes 13 % (2-9); Myelocytes 3 % (-); Segmented Neutrophils 48 % (42-75)
[2024-01-13 12:02] LABS: Normal RBC Morphology No; Nucleated Red Blood Cells 7 (-); Platelets Checked YES
[2024-01-13 12:03] LABS: Anisocytosis Slight; Tear Drop Red Blood Cells FEW
[2024-01-13 12:04] LABS: Total Cells Counted 100
--- NOTE | 2024-01-13 14:47 | W.PN.PUL3 ---
Today's Communication / Plan
-
Chest x-ray in a.m.
Continue management per hematology
Follow sodium, follow hemoglobin
Eventual bone marrow biopsy
Assessment
-
78-year-old male with complex medical history including recurrent hyponatremia, autoimmune hemolytic anemia, hypertension bullous pemphigoid who presents with increased shortness of breath for few days. He was found to be anemic. We are asked to
comment on his pulmonary process
Bilateral patchy infiltrates - DDx is acute pulmonary edema vs inflammatory pneumonitis vs pneumonia; DAH ruled out given no blood seen on serial aliquots during BAL on 01/09/2024
History of hemolytic anemia
Warm antibody autoimmune hemolysis
Rituxan therapy monthly
On chronic prednisone therapy
Recurrent left pleural effusion
s/p Thora 09/26, 09/28, 10/09 (cytology Neg)
Mild MR, moderate AR
PA pressure 35
Normal biventricular function
Hyponatremia/hypokalemia
Elevated lactate
Depressed IgG
Pancytopenia now on granix
Conditions present prior to admission
History of SVT
History of stroke
History of recurrent hyponatremia/SIADH
Chronic autoimmune hemolytic anemia
Hypertension
History of bullous pemphigoid
History of colon cancer 2018
Hypothyroidism
BPH
Diverticulosis
Plan/recommendations
At this time, patient appears to be stable from a pulmonary standpoint
Ongoing neutropenia noted
Salient features include chronic high-dose steroid therapy, recent Rituxan therapy 1 month ago, now presents with progressive shortness of breath, lower extremity edema and chest x-ray suggestive of bilateral infiltrates
History of recurrent left pleural effusion noted, drained x 3 back in September and October 2023, has not recurred
Anemia noted, specifically in the setting of lack of obvious hemolysis per Hematology correspondence
At risk for diffuse alveolar hemorrhage given autoimmune process
Remains on supplemental oxygen @ 2 L of supplemental oxygen, not worsening
Status post transfusion on 01/02 + 01/04/2024, hemoglobin now slowly downtrending post-transfusion
Negative fluid balance-cardiology has signed off.Now on oral Lasix daily
Chest x-ray- persistent bilateral infiltrates, no change
CT chest 01/06/2024: Reviewed,
Showed widespread bilateral predominantly centrally located groundglass opacities new compared to prior study. Infectious, pulmonary edema, inflammatory. Tiny right and left pleural effusion.
Possible infectious etiology: Afebrile without leukocytosis.
patient is s/p course of ABx with Zosyn/Vanco
Given his neutropenia with extended steroid usage, bactrim DS started on 01/08
Follow-up blood cultures and follow up BAL cultures and cytology
MRSA screen positive
ID following
Echocardiogram normal with increased ProBNP on admission.
Status post IV diuretic.
On oral diuretics. Once a day.
Patient with complex volume status, difficulty to determine whether intermittently dry
patient does have chronic lower extremity swelling which has improved since admission.
-
Differential also includes opportunistic infection, pneumocystis, fungal infection.
Less likely as he is improving.
Patient underwent bronchoscopy with BAL on 01/08 - sent for respiratory culture, fungus culture, AFB, viral Cx, and PCP/silver stain DAH ruled out as no bloody seen upon serial aliquots of fluid return
For hemolytic anemia patient remains on prednisone 40 mg. No evidence for ongoing hemolysis per hematology.
Hematology has evaluated the patient this admission.
Patient received 2 units of packed red blood cells this admission with improvement in hemoglobin.
Trend hemoglobin and tranfuse to keep Hb>7, and keep plt>20k
Granix as per hematology; trend ANC count
For eventual bone marrow biopsy as outpatient
Inflammatory pneumonitis from Rituxan therapy also possibility. Continue steroids for now with prednisone and slow taper.
Assess oxygen needs prior DC. Patient not on home oxygen
Wean oxygen as able, maintain saturation greater than 89%
He will likely require home oxygen
Ongoing disposition efforts
Data:
CT Chest without contrast 01-06-2024:
Widespread bilateral predominantly central groundglass opacities new in the interval since prior study. Findings are nonspecific and may be inflammatory/infectious or represent pulmonary edema.
New tiny right pleural effusion and tiny left pleural effusion significantly decreased.
Old granulomatous disease as noted by calcified left hilar lymph nodes and small calcified left lower lobe pulmonary nodule again seen.
Subjective Data
-
Date of Service:
Date of Service: January 13, 2024
Chief Complaint: Pulmonary Follow Up and Dyspnea Follow Up
Subjective:
Patient is without any pulmonary complaints. Primary complaint is fatigue. Denies cough, chest pain, lightheadedness, palpitations. Hyponatremia is noted
Objective Data
Data Reviewed
Vital Signs / I&O / Oxygen:
Vital Signs
Temp Pulse Resp BP Pulse Ox
97.7 F 88 20 117/72 96
01/13/24 07:34 01/13/24 07:34 01/13/24 07:34 01/13/24 07:34 01/13/24 07:34
Intake and Output
01/12/24 01/13/24 01/14/24
06:59 06:59 06:59
Intake Total 1140 / 1140 1400 / 1400
Output Total 1150 / 1150 1400 / 1400
Balance -10 / -10 0 / 0
SaO2 96
Nasal Cannula flow liters per 1
minute
Physical Exam
General: Comfortable
HEENT: Normocephalic and Anicteric
Cardiovascular: S1-S2, Regular Rhythm, Murmur (n), Rub (n) and Peripheral Edema (+1-2 LE pitting edema)
Respiratory: Wheeze (n), Crackles (Few midlung zone posteriorly), Rhonchi (n) and Non-Labored Respirations
GI: Soft, Non Distended and Non Tender
Neurology: Awake, Alert, Oriented and No Motor Deficits (Moves all extremities, able to sit up with minimal assistance)
Skin: Jaundice (n), Rash (n) and Bruising (n)
Labs/Micro/Reports
Lab Data
01/13/24 05:59
01/13/24 05:59
Microbiology
01/09/24 10:37 Bronchoalveolar Lavage Specimen Source - Final
01/09/24 10:37 Bronchoalveolar Lavage Legionella pneumophila (Direct FA) - Final
01/09/24 10:37 Bronchoalveolar Lavage Legionella Culture - Preliminary
01/09/24 10:38 Bronchoalveolar Lavage Fungal Culture - Preliminary
Yeast
01/09/24 10:38 Bronchoalveolar Lavage Acid Fast Bacilli Smear - Preliminary
01/09/24 10:38 Bronchoalveolar Lavage Acid Fast Bacilli Culture - Preliminary
01/09/24 10:38 Bronchoalveolar Lavage Respiratory Virus Culture - Preliminary
01/09/24 10:38 Bronch Right Middle Lobe Respiratory Culture - Final
Usual Respiratory Kelle
01/09/24 10:38 Bronch Right Middle Lobe Gram Stain - Final
[2024-01-13 15:26] VITALS: BP 99/55
[2024-01-13 15:46] VITALS: BP 93/59; PULSE 78; O2SAT 96
--- NOTE | 2024-01-13 16:22 | W.PN.ID1 ---
Date of Service
Date of Service: January 13, 2024
Today's Communication
Continue bactrim. Await Silver Stain. Follow serum potassium while remains on Bactrim.
Assessment / Plan
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
# Now neutropenic
-DDX: pulmonary toxicity from Rituxan vs PJP PNA (risk factor - prolonged high dose steroid)
- s/p bronch/BAL /. Cx usual resp torri. Awaiting path/silverstain
-s/p 9 days Vancomycin/Zosyn
-Continue empiric PJP tx with Bactrim DS 2 tabs tid (d3) pending silver stain result.
Oxygen status appears to be improving without desat with ambulation.
-Hold potassium while on Bactrim.
-Follow clinically and oxygen status.
- Weaning prednisone as per Hem/Onc
- Neutropenia likely due to recent rituxan.
WBC trending down prior to Bactrim.
Hem/Onc following
#Additional Past Medical History:
Hypertension
Recurrent left pleural effusion
SVT
Hypothyroidism
Chronic SIADH
CVA
BP
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
Bullous pemphigoid
Fatty liver
Diverticulosis
Chronic lower extremity edema
Vertebral fracture
Chief Complaint
-: Pneumonia
Subjective / Review of Systems
Review of Systems: No Fever and No Chills
Vital Signs / Physical Exam
Vital Signs
Vital Signs
Temp Pulse Resp BP Pulse Ox
97.7 F 88 20 117/72 96
01/13/24 07:34 01/13/24 07:34 01/13/24 07:34 01/13/24 07:34 01/13/24 07:34
Physical Exam
Constitutional: No Acute Distress, Comfortable and Non-toxic
Eyes: Sclera Anicteric
Pulmonary: Non Labored
Neurological: Awake and Alert
Psychological: Calm
Objective Data
Lab Data
Lab Results
01/13/24 05:59
01/13/24 05:59
Estimated Creat Clear 68 ml/min 01/13/24 05:59
Lactic Acid Cancelled 01/02/24 01:28
Total Bilirubin 1.9 mg/dl (0.2-1.3) H 01/08/24 05:42
AST 27 U/L (17-59) 01/08/24 05:42
ALT 32 U/L (0-50) 01/08/24 05:42
Alkaline Phosphatase 81 U/L (38-126) 01/08/24 05:42
C-Reactive Protein 28.50 mg/L (0.0-10.00) H 01/09/24 06:11
Most recent labs reviewed.
Micro Results:
01/09/24 10:37 Specimen Source - Final
Bronchoalveolar Lavage Legionella pneumophila (Direct FA) - Final
Legionella Culture - Preliminary
01/09/24 10:38 Fungal Culture - Preliminary
Bronchoalveolar Lavage Yeast
01/09/24 10:38 Acid Fast Bacilli Smear - Preliminary
Bronchoalveolar Lavage Acid Fast Bacilli Culture - Preliminary
Respiratory Virus Culture - Preliminary
01/09/24 10:38 Respiratory Culture - Final
Bronch Right Middle Lobe Usual Respiratory Torri
Gram Stain - Final
01/01/24 16:02 Blood Culture - Final
Blood/Venous No Growth - Final Report
01/01/24 14:51 Blood Culture - Final
Blood/Venous No Growth - Final Report
01/02/24 09:15 Nasal Screen MRSA (PCR) - Final
Nose Staph aureus MRSA
01/01/24 17:25 Legionella Urinary Antigen - Final
Urine Negative for Legionella pneumophila Serogroup 1 antigen.
A negative result does not rule out the possiblity of
Legionella infection due to other serogroups or species of
Legionella. Clinical correlation is recommended.
Streptococcus pneumoniae Antigen (M - Final
Negative for Streptococcus pneumoniae antigen.
A negative result does not exclude infection with
Streptococcus pneumoniae. Clinical correlation is
recommended.
01/01/24 14:51 Influenza Types A & B (ORLY) - Final
Nasal Swab Negative for Influenza A & B, NAAT
Negative results must be combined with clinical observations
and patient history.
Nucleic Acid Amplification test (NAAT)performed on the
[employer] platform.
01/09/24 CXR: Persistent bilateral pulmonary parenchymal process. There appears to be slightly improved aeration in the upper lobes. Slightly increased subtle opacity in the right lower lobe.
01/06/[address]: Widespread bilateral predominantly central groundglass opacities new in the interval since prior study. Findings are nonspecific and may be inflammatory/infectious or represent pulmonary edema. New tiny right pleural effusion and
tiny left pleural effusion significantly decreased. Old granulomatous disease as noted by calcified left hilar lymph nodes and small calcified left lower lobe pulmonary nodule again seen.
01/01/24 CXR: There is moderate diffuse coarsening of the interstitial markings throughout both lungs which I favor reflects interstitial pneumonia rather than pulmonary edema though correlation with the patient's BNP is recommended.
[2024-01-13] MEDS: LIPITOR 40 MG PO (17:20)
--- NOTE | 2024-01-13 17:46 | W.PN.HOSP.TC ---
Today's Communication/Plan
-
Transfuse w/ least incompatible blood from the [facility] as needed to maintain Hgb >7 and plt>20k
Hgb dropped to 7.4 on January 13, 2024 - per patient's nurse, [facility] and they have to talk to the pathologist regarding additional testing, and [facility] takes at least 24 hours from the time the request
is submitted -- so blood may not be ready until 01/15/24 morning
Continue Bactrim
Appreciate pulmonary, hematology and infectious disease
Morning CBC/BMP
Assessment / Plan
Assessment / Plan
Physical Exam
General: Not in acute distress
HEENT: Normocephalic, Moist mucous membranes and Atraumatic
Respiratory: Crackles bilaterally.
Cardiac: S1/S2.
GI: Soft, Non Tender, Non Distended and Normal Bowel Sounds
Musculoskeletal: No Cyanosis
Skin: Warm. Dry.
Neuro: Nonfocal/grossly intact
Psych: no agitation, calm.

Assessment/Plan
78 male came in with shortness of breath and anemia. History of hemolytic anemia but testing not compatible with hemolysis event. As of January 07, 2024 he received 2 units of blood - he needed blood from [facility] due to antibodies. His hemoglobin
stable as of January 07, 2024. Prednisone is causing him significant muscle weakness/myopathy in lower extremity. Diagnosed with possible bilateral pneumonia. On IV antibiotics. CT chest done and possibly also pulmonary edema. IV Lasix was given.
Oncology/pulmonary/cardiology are seeing him.
# Hemorrhoidal bleeding, mild in severity
-Hydrocortisone suppository
# History of WILLEM Conner positive hemolytic anemia
# Hyperproliferative (elevated reticulocyte count) recurrent acute anemia
# History of WILLEM Conner positive hemolytic anemia
# Lymphopenia likely post Rituxan
# Hypogammaglobulinemia
# Progressive Leukopenia
Warm antibody autoimmune hemolysis
Rituxan therapy monthly
On chronic prednisone therapy: taper prednisone as per hematology: taper Prednisone 40mg/day 01/09/24 and further taper as able
s/p transfusion of 2 units
Continue folic acid
Appreciate hematology input
Granix to start on January 11, 2024 -- WBC count improving
Neutropenic Precautions given the leukopenia
Transfuse w/ least incompatible blood from the [facility] as needed to maintain Hgb >7 and plt>20k
Hgb dropped to 7.4 on January 13, 2024 - per patient's nurse, [facility] and they have to talk to the pathologist regarding additional testing, and [facility] takes at least 24 hours from the time the request
is submitted -- so blood may not be ready until 01/15/24 morning
# Sepsis (leukocytosis, tachycardia, borderline hypoxic, weakness) secondary to interstitial pneumonia in the setting of immunocompromise status from recent Rituxan
Acute hypoxic respiratory failure.
Bilateral patchy infiltrates
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
Recurrent left pleural effusion - resolved
-Status post Vancomycin and Zosyn
-Appreciate pulmonary input
-Differential diagnosis also includes opportunistic infection, pneumocystis, fungal infection, and inflammatory pneumonitis
-Bronchoscopy performed on January 09, 2024 and BAL sent for fungus, respiratory and AFB, viral, RSV, legionella DFA, and PCP rule out (Silver stain)
-At risk for diffuse alveolar hemorrhage given autoimmune process
-Consulted ID for prophylaxis against opportunistic infections given steroid and Rituxan use
-Continue empiric PJP treatment with Bactrim DS 2 tabs tid pending path/silver stain results
-Hold PO potassium while on Bactrim
# Acute on chronic heart failure with a preserved ejection fraction.
-Echo noted
-Status post IV Lasix
-Continue with Lasix 40 mg PO daily
-Appreciate cardiology input, recommendations appreciated
# Hypokalemia, replaced
# Hyponatremia, History of hyponatremia associated seizure
# History of recurrent hyponatremia/SIADH
Sodium stable in the low 130s to upper 120s
No confusion
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 Continue sodium tablets and urea with the fluid restriction. S/p one dose of Tolvaptan 01/02.
#History of SVT
-Continue metoprolol
#Mild to moderate aortic regurgitation
#Essential hypertension
#Recurrent left pleural effusion
Chest x ray on admission no significant left effusion, CT showed decreasing volume.
#Hypothyroidism
-Continue levothyroxine
#Bullous pemphigoid
#History of CVA
-Continue statin & aspirin.
BPH
Diverticulosis
Chronic multilevel vertebral body endplate fractures
History of fatty liver
History of bullous pemphigoid
History of colon cancer 2018
Hypothyroidism
BPH
Diverticulosis
DNR/DNI
DVT prophylaxis�heparin
Cardiac diet
Anticipated Discharge: > 48 hours
Subjective/Interval History
-
Date of Service: January 13, 2024
Patient was seen and examined. He reported feeling okay, no new changes, is somewhat exhausted.
Objective Data
-
Labs:
Laboratory Results
01/13/24
05:59
WBC 2.7 L
Hgb 7.4 L
Hct 21.6 L
Plt Count 204
Sodium 127 L
Potassium 4.4
Chloride 102
Carbon Dioxide 20 L
BUN 41 H
Creatinine 0.9
Glucose 72
Calcium 8.5
Vital Signs:
Vital Signs
Temp Pulse Resp BP Pulse Ox
97.5 F 76 18 99/55 97
01/13/24 15:26 01/13/24 15:26 01/13/24 15:26 01/13/24 15:26 01/13/24 15:26
I&O
01/12/24 01/13/24 01/14/24
06:59 06:59 06:59
Intake Total 1140 / 1140 1400 / 1400
Output Total 1150 / 1150 1400 / 1400
Balance -10 / -10 0 / 0
[2024-01-13] MEDS: TOPROL XL PO (19:54)
--- NOTE | 2024-01-13 21:45 | W.PN.ONC2 ---
Today's Communication / Plan
-
Plan to request inpt marrow.
Cannot go to rehab with current transfusion requirement.
Impression
Impression
WILLEM Conner positive hemolytic anemia
SIADH/hyponatremia
Lymphopenia likely post Rituxan
Hypogammaglobulinemia
Plan
Plan
Awaiting blood from [facility], it usually takes a day or two due to circulating antibodies.
Will request inpt marrow in AM as hgb continues to drop.
ANC improved today with G-CSF support.
Suggested subacute rehab for pt, really wants to take him home. Discussed that it may be challenging for him to get enough PT at home to regain his strength.
Subjective/Objective
Chief Complaint
Heme/Onc follow up of hemolytic anemia, progressive cytopenias, failure to thrive
Subjective
Feeling poorly again today. Hgb down 1g overnight.
Vital Signs:
Vital Signs
Temp Pulse Resp BP Pulse Ox
97.5 F 80 18 113/63 97
01/13/24 15:26 01/13/24 19:54 01/13/24 15:26 01/13/24 19:54 01/13/24 19:15
Lab Results:
Laboratory Data
WBC 2.7 10^3/uL (4.8-10.8) L 01/13/24 05:59
Hgb 7.4 g/dL (13.0-18.0) L 01/13/24 05:59
Plt Count 204 10^3/uL (130-400) 01/13/24 05:59
eGFR > 60.00 01/13/24 05:59
Physical Exam
Midly ill-appearing, lying in bed
[2024-01-13 23:30] VITALS: BP 107/60
[2024-01-14] MEDS: SYNTHROID 75 MCG PO (05:22)
[2024-01-14] MEDS: MIRALAX 17 GRAMS PO (05:29)
[2024-01-14 05:53] VITALS: BMI 25.0
[2024-01-14 07:30] VITALS: BP 120/66
[2024-01-14 07:38] LABS: Hematocrit 21.4 % (39.0-52.0); Mean Corp Hgb Conc. 32.7 g/dL (33.0-37.0); Mean Corpuscular Hgb 32.6 pg (27.0-31.0); Mean Corpuscular Volume 99.5 fL (80.0-94.0); Mean Platelet Volume 10.7 fL (7.4-10.4); Platelet Count 209 10^3/uL (130-400); Red Blood Cell Count 2.15 10^6/uL (4.70-6.10); Red Cell Dist. Width 16.5 % (11.5-14.5); White Blood Cell Count 15.8 10^3/uL (4.8-10.8)
[2024-01-14 08:08] LABS: Blood Urea Nitrogen 35 mg/dl (9-20); Calcium 8.5 mg/dl (8.4-10.2); Carbon Dioxide 20 mmol/L (22-30); Chloride 99 mmol/L (98-107); Estimated Creatinine Clearance 61 ml/min; Glucose 68 mg/dl (70-99); Potassium 4.3 mmol/L (3.5-5.1); Sodium 128 mmol/L (135-145); eGFR > 60.00
[2024-01-14] MEDS: URE-NA 15 GRAMS PO ×2 (08:15→19:24)
[2024-01-14] MEDS: GRANIX 480 MCG SC (08:16)
[2024-01-14] MEDS: SODIUM CHLORIDE 1 GRAM PO ×2 (08:17→19:31)
[2024-01-14] MEDS: PROTONIX 40 MG PO (08:17)
[2024-01-14] MEDS: BACTRIM DS 800 MG/160 MG 2 TABLET PO ×3 (08:18→21:32)
[2024-01-14] MEDS: VITAMIN D3 (cholecalciferol) 25 MCG PO (08:18)
[2024-01-14] MEDS: ASPIR LOW (ENTERIC COATED) 81 MG PO (08:18)
[2024-01-14] MEDS: LASIX 40 MG PO (08:19)
[2024-01-14] MEDS: DELTASONE 40 MG PO (08:19)
[2024-01-14] MEDS: TOPROL XL 25 MG PO (08:19)
[2024-01-14] MEDS: PROCTOFOAM-HC FOAM RECTAL (08:20)
[2024-01-14] MEDS: FOLVITE 1 MG PO (08:20)
[2024-01-14] MEDS: VITAMIN B-12 1000 MCG PO (08:20)
[2024-01-14] MEDS: HEPARIN 5000 UNITS SC ×2 (08:21→19:31)
--- NOTE | 2024-01-14 10:17 | W.PN.ONC2 ---
Today's Communication / Plan
-
Continue supportive care.
Bone marrow biopsy tomorrow in IR.
Impression
Impression
WILLEM Conner positive hemolytic anemia
SIADH/hyponatremia
Lymphopenia likely post Rituxan
Hypogammaglobulinemia
Plan
Plan
Awaiting blood from [facility], it usually takes a day or two due to circulating antibodies.
Inpt marrow as hgb continues to drop - approved by hospital administration, will likely be 01/14.
ANC improved today with G-CSF support. Already got G-CSF today but now D/C'd
Suggested subacute rehab for pt, really wants to take him home. Discussed that it may be challenging for him to get enough PT at home to regain his strength.
BAL resulted noted, negative for PCP.
Subjective/Objective
Chief Complaint
Heme/Onc follow up of anemia
Subjective
Admits to continued fatigue and weakness, no bleeding.
Vital Signs:
Vital Signs
Temp Pulse Resp BP Pulse Ox
97.6 F 93 18 120/66 96
01/14/24 07:30 01/14/24 07:30 01/14/24 07:30 01/14/24 07:30 01/14/24 07:30
Lab Results:
Laboratory Data
WBC 15.8 10^3/uL (4.8-10.8) H 01/14/24 06:22
Hgb 7.0 g/dL (13.0-18.0) L 01/14/24 06:22
Plt Count 209 10^3/uL (130-400) 01/14/24 06:22
eGFR > 60.00 01/14/24 06:22
Physical Exam
Awake, alert. Non-toxic but chronically ill appearing.
HEENT: Moist Mucous Membranes; No Jaundice
Cardiology: Normal Sinus Rhythm, S1 and S2
Pulmonary: Clear
GI: Soft and Normal Bowel Sounds
Extremities: Pulses Present and No C/C/E
Neuro: Non Focal
Orders
Orders
Orders From Last 24 Hours
01/14/24 10:08
Add On- LAB Routine
[2024-01-14 10:45] LABS: Direct Bilirubin 0.5 mg/dl (0.0-0.4); LDH 451 U/L (120-246); Total Bilirubin 1.3 mg/dl (0.2-1.3)
--- NOTE | 2024-01-14 11:30 | W.PN.ID1 ---
Date of Service
Date of Service: January 14, 2024
Today's Communication
Continue high dose Bactrim.
Assessment / Plan
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
# Neutropenia resolved after TBO-filgrastim; or BM bx per Hem/Onc
- Treating probable PJP PNA (risk factor - prolonged high dose steroid)
- s/p bronch/BAL 01/08. Cx usual resp torri. + yeast which is not significantAwaiting path/silverstain
-s/p 9 days Vancomycin/Zosyn
-Continue empiric PJP tx with Bactrim DS 2 tabs tid (d6 ) pending silver stain result.
Oxygen status appears to be improving without desat with ambulation, now on 1L NC
-Hold potassium while on Bactrim.
-Follow clinically and oxygen status.
- Weaning prednisone as per Hem/Onc, currently at 40mg/d
#Additional Past Medical History:
Hypertension
Recurrent left pleural effusion
SVT
Hypothyroidism
Chronic SIADH
CVA
BP
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
Bullous pemphigoid
Fatty liver
Diverticulosis
Chronic lower extremity edema
Vertebral fracture
Chief Complaint
-: Pneumonia
Subjective / Review of Systems
Waiting for blood transfusion. Feels tired.
JOHNSON better.
Vital Signs / Physical Exam
Vital Signs
Vital Signs
Temp Pulse Resp BP Pulse Ox
97.6 F 93 18 120/66 96
01/14/24 07:30 01/14/24 07:30 01/14/24 07:30 01/14/24 07:30 01/14/24 07:30
Physical Exam
Constitutional: No Acute Distress and Comfortable
Pulmonary: Clear
Gastrointestinal: Soft, Distended and Normal Bowel Sounds
Genito-Urinary: Negative CVA Tenderness
Extremities: Edema
Neurological: AO x 3
Objective Data
Lab Data
Lab Results
01/14/24 06:22
01/14/24 06:22
Estimated Creat Clear 61 ml/min 01/14/24 06:22
Lactic Acid Cancelled 01/02/24 01:28
Total Bilirubin 1.3 mg/dl (0.2-1.3) 01/14/24 06:22
AST 27 U/L (17-59) 01/08/24 05:42
ALT 32 U/L (0-50) 01/08/24 05:42
Alkaline Phosphatase 81 U/L (38-126) 01/08/24 05:42
C-Reactive Protein 28.50 mg/L (0.0-10.00) H 01/09/24 06:11
Most recent labs reviewed.
Micro Results:
01/09/24 10:38 Acid Fast Bacilli Smear - Preliminary
Bronchoalveolar Lavage Acid Fast Bacilli Culture - Preliminary
Respiratory Virus Culture - Preliminary
01/09/24 10:37 Specimen Source - Final
Bronchoalveolar Lavage Legionella pneumophila (Direct FA) - Final
Legionella Culture - Preliminary
01/09/24 10:38 Fungal Culture - Preliminary
Bronchoalveolar Lavage Yeast
01/09/24 10:38 Respiratory Culture - Final
Bronch Right Middle Lobe Usual Respiratory Torri
Gram Stain - Final
01/01/24 16:02 Blood Culture - Final
Blood/Venous No Growth - Final Report
01/01/24 14:51 Blood Culture - Final
Blood/Venous No Growth - Final Report
01/02/24 09:15 Nasal Screen MRSA (PCR) - Final
Nose Staph aureus MRSA
01/01/24 17:25 Legionella Urinary Antigen - Final
Urine Negative for Legionella pneumophila Serogroup 1 antigen.
A negative result does not rule out the possiblity of
Legionella infection due to other serogroups or species of
Legionella. Clinical correlation is recommended.
Streptococcus pneumoniae Antigen (M - Final
Negative for Streptococcus pneumoniae antigen.
A negative result does not exclude infection with
Streptococcus pneumoniae. Clinical correlation is
recommended.
01/01/24 14:51 Influenza Types A & B (ORLY) - Final
Nasal Swab Negative for Influenza A & B, NAAT
Negative results must be combined with clinical observations
and patient history.
Nucleic Acid Amplification test (NAAT)performed on the
[employer] platform.
01/09/24 CXR: Persistent bilateral pulmonary parenchymal process. There appears to be slightly improved aeration in the upper lobes. Slightly increased subtle opacity in the right lower lobe.
01/06/[address]: Widespread bilateral predominantly central groundglass opacities new in the interval since prior study. Findings are nonspecific and may be inflammatory/infectious or represent pulmonary edema. New tiny right pleural effusion and
tiny left pleural effusion significantly decreased. Old granulomatous disease as noted by calcified left hilar lymph nodes and small calcified left lower lobe pulmonary nodule again seen.
01/01/24 CXR: There is moderate diffuse coarsening of the interstitial markings throughout both lungs which I favor reflects interstitial pneumonia rather than pulmonary edema though correlation with the patient's BNP is recommended.
--- NOTE | 2024-01-14 12:02 | CM ---
I met with Santiago and his at bedside today. They inquired about home care services and were interested in [facility]; I advised them that I would double check to make sure [facility] goes to their area and return later today with an update.
--- NOTE | 2024-01-14 12:18 | W.PN.PUL3 ---
Today's Communication / Plan
-
Bronch cultures are negative, abx per ID
Maintained on PO lasix
Ongoing PO prednisone for possible hemolytic anemia
Ongoing anemia w/u per heme
Home O2 eval
Encouraged PT/OT/IS/ambulation
Eventual outpatient pulmonary FU recommended
Assessment
-
78-year-old male with complex medical history including recurrent hyponatremia, autoimmune hemolytic anemia, hypertension bullous pemphigoid who presents with increased shortness of breath for few days. He was found to be anemic. We are asked to
comment on his pulmonary process
Bilateral patchy infiltrates/Abnl CT
s/p bronch with BAL 01/09/24, neg cultures, lingula BAL + yeast
DAH ruled out given no blood seen on serial aliquots during BAL
History of hemolytic anemia
Warm antibody autoimmune hemolysis
Rituxan therapy monthly
On chronic prednisone therapy
Recurrent left pleural effusion
s/p Thora 09/26, 09/28, 10/09 (cytology Neg)
Mild MR, moderate AR
PA pressure 35
Normal biventricular function
Hyponatremia/hypokalemia
Elevated lactate
Depressed IgG
Pancytopenia now on granix
Conditions present prior to admission
History of SVT
History of stroke
History of recurrent hyponatremia/SIADH
Chronic autoimmune hemolytic anemia
Hypertension
History of bullous pemphigoid
History of colon cancer 2019
Hypothyroidism
BPH
Diverticulosis
Plan/recommendations
At this time, patient appears to be stable from a pulmonary standpoint
Remains on 2L but not known to be on home O2
Home O2 eval obtained
Ongoing neutropenia noted
Salient features include chronic high-dose steroid therapy
Recent Rituxan therapy 1 month ago, now presents with progressive shortness of breath
Lower extremity edema and chest x-ray suggestive of bilateral infiltrates
Given his neutropenia with extended steroid usage, bactrim DS started on 01/08
Follow-up blood cultures and follow up BAL cultures and cytology--negative so far, BAL lingula + yeast
MRSA screen positive
He is on Bactrim per ID for possible PCP prophylaxis
History of recurrent left pleural effusion noted, drained x 3 back in September and October 2023, has not recurred
Anemia noted, specifically in the setting of lack of obvious hemolysis per Hematology correspondence
No evidence of DAH on bronch
Status post transfusion on 01/02 + 01/04/2024, hemoglobin now slowly downtrending post-transfusion
Volume overload a component
Echocardiogram normal with increased ProBNP on admission.
Chest x-ray- persistent bilateral infiltrates, no change
CT chest 01/06/2024: Reviewed, showed widespread bilateral predominantly centrally located groundglass opacities new compared to prior study. Infectious, pulmonary edema, inflammatory. Tiny right and left pleural effusion.
Now on oral Lasix 40mg PO daily
Negative fluid balance-cardiology has signed off
For hemolytic anemia patient remains on prednisone 40 mg. No evidence for ongoing hemolysis per hematology.
Hematology has evaluated the patient this admission.
Patient received 2 units of packed red blood cells this admission with improvement in hemoglobin.
Trend hemoglobin and tranfuse to keep Hb>7, and keep plt>20k
Granix as per hematology; trend ANC count
For eventual bone marrow biopsy as outpatient
Inflammatory pneumonitis from Rituxan therapy also possibility.
Continue steroids for now with prednisone and slow taper.
Outpatient pulmonary FU can be arranged if SOB ongoing, this is placed on his discharge
Ongoing disposition efforts
Diagnosis Data
CT Chest without contrast 01-06-2024: Widespread bilateral predominantly central groundglass opacities new in the interval since prior study. Findings are nonspecific and may be inflammatory/infectious or represent pulmonary edema. New tiny right
pleural effusion and tiny left pleural effusion significantly decreased. Old granulomatous disease as noted by calcified left hilar lymph nodes and small calcified left lower lobe pulmonary nodule again seen.
ECHO 01/01/24- Normal left ventricular chamber size. Normal left ventricular systolic function. No gross regional wall motion abnormalities within limits of the study. Left ventricular ejection fraction is 60-65%. Mild concentric left ventricular
hypertrophy. Stage II diastolic dysfunction suggestive of abnormal relaxation and increased filling pressures. Normal right ventricular size and function. Mild mitral regurgitation. Moderate aortic regurgitation. Mild tricuspid regurgitation.
Estimated pulmonary artery pressure of 30-35 mmHg. Assuming a right atrial pressure of 3 mmHg. Compared to prior study dated 10/19/23, there is no significant change
Subjective Data
-
Date of Service:
Date of Service: January 14, 2024
Chief Complaint: Pulmonary Follow Up and Dyspnea Follow Up
Subjective:
denies any new complaints, on 2L O2
reports some JOHNSON but has not been regularly ambulating
Objective Data
Data Reviewed
Vital Signs / I&O / Oxygen:
Vital Signs
Temp Pulse Resp BP Pulse Ox
97.6 F 93 18 120/66 96
01/14/24 07:30 01/14/24 07:30 01/14/24 07:30 01/14/24 07:30 01/14/24 07:30
Intake and Output
01/13/24 01/14/24 01/15/24
06:59 06:59 06:59
Intake Total 1400 / 1400
Output Total 1400 / 1400 1300 / 1300
Balance 0 / 0 -1300 / -1300
SaO2 96
Nasal Cannula flow liters per 1
minute
Physical Exam
General: Comfortable
HEENT: Normocephalic and Anicteric
Cardiovascular: S1-S2, Regular Rhythm, Murmur (n), Rub (n) and Peripheral Edema (+1-2 LE pitting edema)
Respiratory: Clear, Wheeze (n), Rhonchi (n) and Non-Labored Respirations
GI: Soft, Non Distended and Non Tender
Neurology: Awake, Alert, Oriented, AO x 3 and No Motor Deficits (Moves all extremities, able to sit up with minimal assistance)
Skin: Jaundice (n), Rash (n) and Bruising (n)
Labs/Micro/Reports
Lab Data
01/14/24 06:22
01/14/24 06:22
Microbiology
01/09/24 10:38 Bronchoalveolar Lavage Acid Fast Bacilli Smear - Preliminary
01/09/24 10:38 Bronchoalveolar Lavage Acid Fast Bacilli Culture - Preliminary
01/09/24 10:38 Bronchoalveolar Lavage Respiratory Virus Culture - Preliminary
01/09/24 10:37 Bronchoalveolar Lavage Specimen Source - Final
01/09/24 10:37 Bronchoalveolar Lavage Legionella pneumophila (Direct FA) - Final
01/09/24 10:37 Bronchoalveolar Lavage Legionella Culture - Preliminary
01/09/24 10:38 Bronchoalveolar Lavage Fungal Culture - Preliminary
Yeast
01/09/24 10:38 Bronch Right Middle Lobe Respiratory Culture - Final
Usual Respiratory Kelle
01/09/24 10:38 Bronch Right Middle Lobe Gram Stain - Final
--- NOTE | 2024-01-14 12:38 | W.PN.HOSP.TC ---
Today's Communication/Plan
-
.
Assessment / Plan
Assessment / Plan
Physical Exam
General: Not in acute distress
HEENT: Normocephalic, Moist mucous membranes and Atraumatic
Respiratory: Crackles bilaterally.
Cardiac: S1/S2.
GI: Soft, Non Tender, Non Distended and Normal Bowel Sounds
Musculoskeletal: No Cyanosis
Skin: Warm. Dry.
Neuro: Nonfocal/grossly intact
Psych: no agitation, calm.

Assessment/Plan
78 male came in with shortness of breath and anemia. History of hemolytic anemia but testing not compatible with hemolysis event. As of January 07, 2024 he received 2 units of blood - he needed blood from [place] due to antibodies. His hemoglobin
stable as of January 07, 2024. Prednisone is causing him significant muscle weakness/myopathy in lower extremity. Diagnosed with possible bilateral pneumonia. On IV antibiotics. CT chest done and possibly also pulmonary edema. IV Lasix was given.
Oncology/pulmonary/cardiology are seeing him.
# Hemorrhoidal bleeding, mild in severity
-Hydrocortisone suppository
# History of WILLEM Conner positive hemolytic anemia/ Hyperproliferative (elevated reticulocyte count) recurrent acute anemia/ History of WILLEM Conner positive hemolytic anemia/ Lymphopenia likely post Rituxan/ Hypogammaglobulinemia/ Progressive
Leukopenia
Warm antibody autoimmune hemolysis
Rituxan therapy monthly
On chronic prednisone therapy: taper prednisone as per hematology: taper Prednisone 40mg/day 01/09/24 and further taper as able
s/p transfusion of 2 units
Continue folic acid
Granix January 11, 2024 -- WBC count improving
Neutropenic Precautions given the leukopenia
Transfuse w/ least incompatible blood from the [place] [facility] as needed to maintain Hgb >7 and plt>20k
Hgb dropped to 7.4 on January 13, 2024 - blood may not be ready until 01/15/24 morning
Appreciate hematology input
# Sepsis (leukocytosis, tachycardia, borderline hypoxic, weakness) secondary to interstitial pneumonia in the setting of immunocompromise status from recent Rituxan
Acute hypoxic respiratory failure.
Bilateral patchy infiltrates
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
Recurrent left pleural effusion - resolved
-Status post Vancomycin and Zosyn
-Differential diagnosis also includes opportunistic infection, Pneumocystis, fungal infection, bronchiolitis obliterans organizing pneumonia (BOOP)
-Bronchoscopy performed on January 09, 2024 and BAL sent for fungus, respiratory and AFB, viral, RSV, legionella DFA, and PCP rule out (Silver stain)
-Consulted ID for prophylaxis against opportunistic infections given steroid and Rituxan use
-Continue empiric PJP treatment with Bactrim DS 2 tabs tid pending path/silver stain results
-Hold PO potassium while on high dose Bactrim
Appreciate hematology input
# Acute on chronic heart failure with a preserved ejection fraction.
-Echo 01/01/24: EF 60-65%, mild conc LVH, stage II diastolic dysfunction, mild MR mod AR, mild TR
-Status post IV Lasix
-Continue with Lasix 40 mg PO daily
-Appreciate cardiology input, recommendations appreciated
# Hypokalemia, replaced
# Hyponatremia, History of hyponatremia associated seizure
# History of recurrent hyponatremia/SIADH
Sodium stable in the low 130s to upper 120s
No confusion
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 Continue sodium tablets and urea with the fluid restriction. S/p one dose of Tolvaptan 01/02.
#History of SVT
-Continue metoprolol
#Mild to moderate aortic regurgitation
#Essential hypertension
#Recurrent left pleural effusion
Chest x ray on admission no significant left effusion, CT showed decreasing volume.
#Hypothyroidism
-Continue levothyroxine
#Bullous pemphigoid
#History of CVA
-Continue statin & aspirin.
BPH
Diverticulosis
Chronic multilevel vertebral body endplate fractures
History of fatty liver
History of bullous pemphigoid
History of colon cancer 2019
Hypothyroidism
BPH
Diverticulosis
DNR/DNI
DVT prophylaxis�heparin
Cardiac diet
Total time spent to see the patient, examine the patient on the floor, review data and lab results, discuss treatment plan with patient and nursing staff around 55 minutes
Anticipated Discharge: > 48 hours
Subjective/Interval History
-
Date of Service: January 14, 2024
No sob
No chest pain
Objective Data
-
Labs:
Laboratory Results
01/14/24
06:22
WBC 15.8 H
Hgb 7.0 L
Hct 21.4 L
Plt Count 209
Sodium 128 L
Potassium 4.3
Chloride 99
Carbon Dioxide 20 L
BUN 35 H
Creatinine 1.0
Glucose 68 L
Calcium 8.5
Total Bilirubin 1.3
Vital Signs:
Vital Signs
Temp Pulse Resp BP Pulse Ox
97.6 F 93 18 120/66 96
01/14/24 07:30 01/14/24 07:30 01/14/24 07:30 01/14/24 07:30 01/14/24 07:30
I&O
01/13/24 01/14/24 01/15/24
06:59 06:59 06:59
Intake Total 1400 / 1400
Output Total 1400 / 1400 1300 / 1300
Balance 0 / 0 -1300 / -1300
[2024-01-14 15:10] VITALS: BP 91/59
--- NOTE | 2024-01-14 15:20 | CM ---
Addendum entered by Adeline Cobb 01/14/24 16:07:
Dr. Watson responded to TT and advised that home O2 evaluation will be done when Santiago is ready to go home.
Original Note:
Referral provided to [facility] for [facility] and pt has been accepted for services at discharge; VN does service his area. 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
bloodwork done a few days/week and his insurance will cover blood draws in the home.
Pt is new to oxygen and TT sent to MD requesting home oxygen evaluation prior to discharge.
PLAN: Discharge to home with and VN; possible need for O2 in the home pending respiratory evaluation for O2 needs.
[2024-01-14] MEDS: LIPITOR 40 MG PO (17:09)
[2024-01-14] MEDS: TOPROL XL PO (19:44)
[2024-01-14 23:00] VITALS: BP 103/57
[2024-01-15] VITALS (10 sets, daily range): BP systolic 68–107; BP diastolic 59–92; PULSE 83; O2SAT 97
[2024-01-15] MEDS: SYNTHROID 75 MCG PO (05:59)
[2024-01-15] MEDS: URE-NA 15 GRAMS PO ×2 (08:01→19:21)
[2024-01-15] MEDS: MIRALAX 17 GRAMS PO (08:01)
[2024-01-15] MEDS: BACTRIM DS 800 MG/160 MG 2 TABLET PO ×3 (08:03→21:05)
[2024-01-15] MEDS: ASPIR LOW (ENTERIC COATED) 81 MG PO (08:03)
[2024-01-15] MEDS: DELTASONE 40 MG PO (08:03)
[2024-01-15] MEDS: SODIUM CHLORIDE 1 GRAM PO ×2 (08:04→19:20)
[2024-01-15] MEDS: TOPROL XL 25 MG PO (08:04)
[2024-01-15] MEDS: LASIX 40 MG PO (08:05)
[2024-01-15] MEDS: FOLVITE 1 MG PO (08:05)
[2024-01-15] MEDS: VITAMIN B-12 1000 MCG PO (08:05)
[2024-01-15] MEDS: PROTONIX 40 MG PO (08:05)
[2024-01-15] MEDS: HEPARIN SC (08:07)
[2024-01-15] MEDS: PROCTOFOAM-HC FOAM RECTAL (08:08)
[2024-01-15 08:29] LABS: Hematocrit 22.8 % (39.0-52.0); Hemoglobin 7.4 g/dL (13.0-18.0); Mean Corp Hgb Conc. 32.5 g/dL (33.0-37.0); Mean Corpuscular Hgb 31.9 pg (27.0-31.0); Mean Corpuscular Volume 98.3 fL (80.0-94.0); Mean Platelet Volume 11.2 fL (7.4-10.4); Nucleated Red Blood Cells % 1.4 % (-); Platelet Count 192 10^3/uL (130-400); Red Blood Cell Count 2.32 10^6/uL (4.70-6.10); Red Cell Dist. Width 17.2 % (11.5-14.5); White Blood Cell Count 33.5 10^3/uL (4.8-10.8)
[2024-01-15 09:09] LABS: Blood Urea Nitrogen 42 mg/dl (9-20); Calcium 8.9 mg/dl (8.4-10.2); Carbon Dioxide 21 mmol/L (22-30); Chloride 97 mmol/L (98-107); Estimated Creatinine Clearance 55 ml/min; Glucose 62 mg/dl (70-99); Sodium 130 mmol/L (135-145); eGFR > 60.00
[2024-01-15 10:10] LABS: Absolute Neutrophils -Man Diff 24.4 10^3/uL (1.4-6.5); Band Neutrophils 13 % (0-3); Eosinophils 1 % (0-6); Lymphocytes 14 % (20-51); Monocytes 8 % (2-9); Myelocytes 4 % (-); Segmented Neutrophils 60 % (42-75)
[2024-01-15 10:23] LABS: Anisocytosis Slight; Hypochromasia Slight; Normal RBC Morphology No; Platelets Checked Yes
[2024-01-15 10:26] LABS: Total Cells Counted 100
--- NOTE | 2024-01-15 11:04 | W.PN.HOSP.TC ---
Today's Communication/Plan
-
.
Assessment / Plan
Assessment / Plan
Physical Exam
General: Not in acute distress
HEENT: Normocephalic, Moist mucous membranes and Atraumatic
Respiratory: clear bilaterally.
Cardiac: S1/S2.
GI: Soft, Non Tender, Non Distended and Normal Bowel Sounds
Musculoskeletal: No Cyanosis
Skin: Warm. Dry.
Neuro: Nonfocal/grossly intact
Psych: no agitation, calm.

Assessment/Plan
78 male came in with shortness of breath and anemia. History of hemolytic anemia but testing not compatible with hemolysis event. As of January 07, 2024 he received 2 units of blood - he needed blood from [facility] due to antibodies. His hemoglobin
stable as of January 07, 2024. Prednisone is causing him significant muscle weakness/myopathy in lower extremity. Diagnosed with possible bilateral pneumonia. On IV antibiotics. CT chest done and possibly also pulmonary edema. IV Lasix was given.
Oncology/pulmonary/cardiology are seeing him.
# Hemorrhoidal bleeding, mild in severity
-Hydrocortisone suppository
# History of WILLEM Conner positive hemolytic anemia/ Hyperproliferative (elevated reticulocyte count) recurrent acute anemia/ History of WILLEM Conner positive hemolytic anemia/ Lymphopenia likely post Rituxan/ Hypogammaglobulinemia/ Progressive
Leukopenia
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
S/P Rituxan therapy monthly
On chronic prednisone therapy: taper prednisone as per hematology: taper Prednisone 40mg/day 01/09/24 and further taper as able on weekly bases.
s/p transfusion of 2 units. Pt and want another transfusion ( they feel he will need it anyway). I called blood bank 01/14 ( still doing tests to send out to [facility]- I informed ).
Continue folic acid
Granix January 11, 2024 -- WBC count improving, no need for further doses.
Neutropenic Precautions can be removed.
Transfuse w/ least incompatible blood from the [place] as needed to maintain Hgb >7 and plt>20k
Primary oncologist Dr Rojas.
Appreciate hematology input
# Sepsis (leukocytosis, tachycardia, borderline hypoxic, weakness) secondary to interstitial pneumonia in the setting of immunocompromise status from recent Rituxan & high dose steroid.
Acute hypoxic respiratory failure.
Bilateral patchy infiltrates
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
Recurrent left pleural effusion - resolved
- Repeat chest x ray 01/14 showed interval improvement.
-Status post Vancomycin and Zosyn
-Differential diagnosis also includes hypersensitivity pneumonitis from Rituxan ( high likely), opportunistic infection, Pneumocystis, fungal infection, bronchiolitis obliterans organizing pneumonia (BOOP)
-Bronchoscopy performed on January 09, 2024 and BAL sent for fungus, respiratory and AFB, viral, RSV, legionella DFA, and PCP rule out (Silver stain)
-Consulted ID for prophylaxis against opportunistic infections given steroid and Rituxan use
-Continue empiric PJP treatment with Bactrim DS 2 tabs tid pending path/silver stain is negative for PJP
-Held PO potassium while on high dose Bactrim
Appreciate ID& hematology input
# Acute on chronic heart failure with a preserved ejection fraction.
-Echo 01/01/24: EF 60-65%, mild conc LVH, stage II diastolic dysfunction, mild MR mod AR, mild TR
-Status post IV Lasix
-Continue with Lasix 40 mg PO daily
-Appreciate cardiology input, recommendations appreciated
# Hypokalemia, replaced
# Hyponatremia, History of hyponatremia associated seizure
# History of recurrent hyponatremia/SIADH
Sodium stable in the low 130s to upper 120s
No confusion
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 Continue sodium tablets and urea with the fluid restriction. S/p one dose of Tolvaptan 01/02.
#History of SVT
-Continue metoprolol
#Mild to moderate aortic regurgitation
#Essential hypertension
#Recurrent left pleural effusion
Chest x ray on admission no significant left effusion, CT showed decreasing volume.
#Hypothyroidism
-Continue levothyroxine
#Bullous pemphigoid
#History of CVA
-Continue statin & aspirin.
BPH
Diverticulosis
Chronic multilevel vertebral body endplate fractures
History of fatty liver
History of bullous pemphigoid
History of colon cancer 2019
Hypothyroidism
BPH
Diverticulosis
DNR/DNI
DVT prophylaxis�heparin
Cardiac diet
Total time spent to see the patient, examine the patient on the floor, review data and lab results, discuss treatment plan with patient, and nursing staff around 57 minutes
Anticipated Discharge: > 48 hours
Subjective/Interval History
-
Date of Service: January 15, 2024
He feels weak
No worsening sob or cough
Objective Data
-
Labs:
Laboratory Results
01/15/24
07:39
WBC 33.5 H
Hgb 7.4 L
Hct 22.8 L
Plt Count 192
Sodium 130 L
Potassium 5.0
Chloride 97 L
Carbon Dioxide 21 L
BUN 42 H
Creatinine 1.1
Glucose 62 L
Calcium 8.9
Vital Signs:
Vital Signs
Temp Pulse Resp BP Pulse Ox
97.6 F 88 18 107/61 98
01/15/24 07:00 01/15/24 07:00 01/15/24 07:00 01/15/24 07:00 01/15/24 08:00
I&O
01/14/24 01/15/24 01/16/24
06:59 06:59 06:59
Intake Total 540 / 540
Output Total 1300 / 1300 850 / 850
Balance -1300 / -1300 -310 / -310
--- NOTE | 2024-01-15 11:18 | W.PN.PUL3 ---
Today's Communication / Plan
-
Home O2 eval, ABG on room air
If he does not demonstrate significant hypoxemia, can eliminate need for prophylactic Bactrim need
ID following for PJP treatment
Outpatient pulmonary FU reviewed with patient
Discharge planning otherwise per team
Assessment
-
78-year-old male with complex medical history including recurrent hyponatremia, autoimmune hemolytic anemia, hypertension bullous pemphigoid who presents with increased shortness of breath for few days. He was found to be anemic. We are asked to
comment on his pulmonary process
Bilateral patchy infiltrates/Abnl CT
s/p bronch with BAL 01/09/24, neg cultures, lingula BAL + yeast
DAH ruled out given no blood seen on serial aliquots during BAL
History of hemolytic anemia
Warm antibody autoimmune hemolysis
Rituxan therapy monthly
On chronic prednisone therapy
Recurrent left pleural effusion
s/p Thora 09/26, 09/28, 10/09 (cytology Neg)
Mild MR, moderate AR
PA pressure 35
Normal biventricular function
Hyponatremia/hypokalemia
Elevated lactate
Depressed IgG
Pancytopenia now on granix
Conditions present prior to admission
History of SVT
History of stroke
History of recurrent hyponatremia/SIADH
Chronic autoimmune hemolytic anemia
Hypertension
History of bullous pemphigoid
History of colon cancer 2019
Hypothyroidism
BPH
Diverticulosis
Plan/recommendations
At this time, patient appears to be stable from a pulmonary standpoint
Remains on 2L but not known to be on home O2
Home O2 eval obtained
Will obtain ABG on RA to evaluate hypoxemia in terms of PJP treatment
Ongoing neutropenia noted
Salient features include chronic high-dose steroid therapy
Recent Rituxan therapy 1 month ago, now presents with progressive shortness of breath
Lower extremity edema and chest x-ray suggestive of bilateral infiltrates
Given his neutropenia with extended steroid usage, bactrim DS started on 01/08
Follow-up blood cultures and follow up BAL cultures and cytology--negative so far, BAL lingula + yeast
MRSA screen positive
He is on Bactrim per ID for possible PCP prophylaxis
History of recurrent left pleural effusion noted, drained x 3 back in September and October 2023, has not recurred
Anemia noted, specifically in the setting of lack of obvious hemolysis per Hematology correspondence
No evidence of DAH on bronch
Status post transfusion on 01/02 + 01/04/2024, hemoglobin now slowly downtrending post-transfusion
Volume overload a component
Echocardiogram normal with increased ProBNP on admission.
Chest x-ray- persistent bilateral infiltrates, no change
CT chest 01/06/2024: Reviewed, showed widespread bilateral predominantly centrally located groundglass opacities new compared to prior study. Infectious, pulmonary edema, inflammatory. Tiny right and left pleural effusion.
Now on oral Lasix 40mg PO daily
Negative fluid balance-cardiology has signed off
For hemolytic anemia patient remains on prednisone 40 mg. No evidence for ongoing hemolysis per hematology.
Hematology has evaluated the patient this admission.
Patient received 2 units of packed red blood cells this admission with improvement in hemoglobin.
Trend hemoglobin and tranfuse to keep Hb>7, and keep plt>20k
Granix as per hematology; trend ANC count
For eventual bone marrow biopsy as outpatient
Inflammatory pneumonitis from Rituxan therapy also possibility.
Continue steroids for now with prednisone and slow taper.
Outpatient pulmonary FU can be arranged if SOB ongoing, this is placed on his discharge
Ongoing disposition efforts
Diagnosis Data
CT Chest without contrast 01-06-2024: Widespread bilateral predominantly central groundglass opacities new in the interval since prior study. Findings are nonspecific and may be inflammatory/infectious or represent pulmonary edema. New tiny right
pleural effusion and tiny left pleural effusion significantly decreased. Old granulomatous disease as noted by calcified left hilar lymph nodes and small calcified left lower lobe pulmonary nodule again seen.
ECHO 01/01/24- Normal left ventricular chamber size. Normal left ventricular systolic function. No gross regional wall motion abnormalities within limits of the study. Left ventricular ejection fraction is 60-65%. Mild concentric left ventricular
hypertrophy. Stage II diastolic dysfunction suggestive of abnormal relaxation and increased filling pressures. Normal right ventricular size and function. Mild mitral regurgitation. Moderate aortic regurgitation. Mild tricuspid regurgitation.
Estimated pulmonary artery pressure of 30-35 mmHg. Assuming a right atrial pressure of 3 mmHg. Compared to prior study dated 10/19/23, there is no significant change
Subjective Data
-
Date of Service:
Date of Service: January 15, 2024
Chief Complaint: Pulmonary Follow Up and Dyspnea Follow Up
Subjective:
no new events today, remains on low supplemental O2
bmb completed today
he states he has been active
Objective Data
Data Reviewed
Vital Signs / I&O / Oxygen:
Vital Signs
Temp Pulse Resp BP Pulse Ox
97.5 F 71 16 99/65 98
01/15/24 11:00 01/15/24 11:00 01/15/24 11:00 01/15/24 11:00 01/15/24 11:00
Intake and Output
01/14/24 01/15/24 01/16/24
06:59 06:59 06:59
Intake Total 540 / 540
Output Total 1300 / 1300 850 / 850
Balance -1300 / -1300 -310 / -310
SaO2 98
Nasal Cannula flow liters per 1
minute
Physical Exam
General: Comfortable
HEENT: Normocephalic and Anicteric
Cardiovascular: S1-S2, Regular Rhythm, Murmur (n), Rub (n) and Peripheral Edema (+1-2 LE pitting edema)
Respiratory: Clear, Wheeze (n), Rhonchi (n) and Non-Labored Respirations
GI: Soft, Non Distended and Non Tender
Neurology: Awake, Alert, Oriented, AO x 3 and No Motor Deficits (Moves all extremities, able to sit up with minimal assistance)
Skin: Jaundice (n), Rash (n) and Bruising (n)
Labs/Micro/Reports
Lab Data
01/15/24 07:39
01/15/24 07:39
Microbiology
01/09/24 10:38 Bronchoalveolar Lavage Fungal Culture - Final
Marcella albicans
01/09/24 10:38 Bronchoalveolar Lavage Acid Fast Bacilli Smear - Preliminary
01/09/24 10:38 Bronchoalveolar Lavage Acid Fast Bacilli Culture - Preliminary
01/09/24 10:38 Bronchoalveolar Lavage Respiratory Virus Culture - Preliminary
01/09/24 10:37 Bronchoalveolar Lavage Specimen Source - Final
01/09/24 10:37 Bronchoalveolar Lavage Legionella pneumophila (Direct FA) - Final
01/09/24 10:37 Bronchoalveolar Lavage Legionella Culture - Preliminary
--- NOTE | 2024-01-15 11:45 | W.PN.ID1 ---
Date of Service
Date of Service: January 15, 2024
Today's Communication
Continue Bactrim as below.
Assessment / Plan
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
# Neutropenia resolved after TBO-filgrastim; for BM bx today per Hem/Onc
- Treating probable PJP PNA (risk factor - prolonged high dose steroid)
- s/p bronch/BAL 01/08. Cx usual resp torri. + yeast which is not significant
BAL path: silver stain negative for pneumocystis organisms
-s/p 9 days Vancomycin/Zosyn
- BAL silver stain for PJP has low sensitivity (80's) in non-HIV immunosuppressed host.
- Favor continuing empiric PJP tx as patient is clinically improving.
- Recommend continue Bactrim DS 2 tabs tid () through 01/29/24 followed by suppressive 1 tab daily while on prednisone >20mg/d.
-Follow clinically and oxygen status.
- Weaning prednisone as per Hem/Onc, currently at 40mg/d
- Bone marrow bx today.
#Additional Past Medical History:
Hypertension
Recurrent left pleural effusion
SVT
Hypothyroidism
Chronic SIADH
CVA
BP
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
Bullous pemphigoid
Fatty liver
Diverticulosis
Chronic lower extremity edema
Vertebral fracture
Chief Complaint
-: Pneumonia
Subjective / Review of Systems
No new complaints.
Vital Signs / Physical Exam
Vital Signs
Vital Signs
Temp Pulse Resp BP Pulse Ox
97.5 F 71 16 99/65 98
01/15/24 11:00 01/15/24 11:00 01/15/24 11:00 01/15/24 11:00 01/15/24 11:00
Physical Exam
Constitutional: No Acute Distress
Pulmonary: Clear
Gastrointestinal: Soft, Non Tender and Non Distended
Extremities: Edema
Neurological: AO x 3
Objective Data
Lab Data
Lab Results
01/15/24 07:39
01/15/24 07:39
Estimated Creat Clear 55 ml/min 01/15/24 07:39
Lactic Acid Cancelled 01/02/24 01:28
Total Bilirubin 1.3 mg/dl (0.2-1.3) 01/14/24 06:22
AST 27 U/L (17-59) 01/08/24 05:42
ALT 32 U/L (0-50) 01/08/24 05:42
Alkaline Phosphatase 81 U/L (38-126) 01/08/24 05:42
C-Reactive Protein 28.50 mg/L (0.0-10.00) H 01/09/24 06:11
Most recent labs reviewed.
Micro Results:
01/09/24 10:38 Fungal Culture - Final
Bronchoalveolar Lavage Marcella albicans
01/09/24 10:38 Acid Fast Bacilli Smear - Preliminary
Bronchoalveolar Lavage Acid Fast Bacilli Culture - Preliminary
Respiratory Virus Culture - Preliminary
01/09/24 10:37 Specimen Source - Final
Bronchoalveolar Lavage Legionella pneumophila (Direct FA) - Final
Legionella Culture - Preliminary
01/09/24 10:38 Respiratory Culture - Final
Bronch Right Middle Lobe Usual Respiratory Torri
Gram Stain - Final
01/01/24 16:02 Blood Culture - Final
Blood/Venous No Growth - Final Report
01/01/24 14:51 Blood Culture - Final
Blood/Venous No Growth - Final Report
01/02/24 09:15 Nasal Screen MRSA (PCR) - Final
Nose Staph aureus MRSA
01/01/24 17:25 Legionella Urinary Antigen - Final
Urine Negative for Legionella pneumophila Serogroup 1 antigen.
A negative result does not rule out the possiblity of
Legionella infection due to other serogroups or species of
Legionella. Clinical correlation is recommended.
Streptococcus pneumoniae Antigen (M - Final
Negative for Streptococcus pneumoniae antigen.
A negative result does not exclude infection with
Streptococcus pneumoniae. Clinical correlation is
recommended.
01/01/24 14:51 Influenza Types A & B (ORLY) - Final
Nasal Swab Negative for Influenza A & B, NAAT
Negative results must be combined with clinical observations
and patient history.
Nucleic Acid Amplification test (NAAT)performed on the
[employer] platform.
01/15/24 CXR: Patchy foci of airspace consolidation bilaterally, most suggestive of pneumonia. Improved aeration compared to prior chest x-ray dated 01/09/2024
01/09/24 CXR: Persistent bilateral pulmonary parenchymal process. There appears to be slightly improved aeration in the upper lobes. Slightly increased subtle opacity in the right lower lobe.
01/06/[address]: Widespread bilateral predominantly central groundglass opacities new in the interval since prior study. Findings are nonspecific and may be inflammatory/infectious or represent pulmonary edema. New tiny right pleural effusion and
tiny left pleural effusion significantly decreased. Old granulomatous disease as noted by calcified left hilar lymph nodes and small calcified left lower lobe pulmonary nodule again seen.
01/01/24 CXR: There is moderate diffuse coarsening of the interstitial markings throughout both lungs which I favor reflects interstitial pneumonia rather than pulmonary edema though correlation with the patient's BNP is recommended.
Care Review
Plan reviewed with: Physician (Dr. Watson)
[2024-01-15] MEDS: ATIVAN 0.5 MG IV (12:19)
[2024-01-15] MEDS: NSS (PRESERVATIVE FREE) 0.25 ML IV (12:20)
--- NOTE | 2024-01-15 12:42 | CM ---
Spoke with spouse bedside.
Patient off the floor for a bone marrow bx.
hgb 7.4, awaiting blood transfusion.
Plan:home with possible home oxygen needs and [facility].
--- NOTE | 2024-01-15 13:58 | PTCARENOTE ---
Patient received from at 1330, awake alert oriented . Ambulated from stretcher to bed without difficulty. Dressing clean dry intact to right lower ischium. Ice pack intact. No c/o pain or discomfort. at bedside.
--- NOTE | 2024-01-15 14:03 | W.PN.ONC ---
Today's Communication / Plan
-
He seems to be slowly improving. Hemoglobin stable at 7.5. Bone marrow will not be resulted for several days. Treatment of pneumonia as per primary service and infectious disease service.
Impression
Impression
WILLEM Conner positive hemolytic anemia
SIADH/hyponatremia
Lymphopenia likely post Rituxan
Hypogammaglobulinemia
Plan
Plan
Awaiting blood from [facility], it usually takes a day or two due to circulating antibodies.
Inpt marrow as hgb continues to drop - approved by hospital administration, will likely be 01/14.
ANC improved today with G-CSF support. Already got G-CSF today but now D/C'd
Suggested subacute rehab for pt, really wants to take him home. Discussed that it may be challenging for him to get enough PT at home to regain his strength.
BAL resulted noted, negative for PCP.
Subjective/Objective
Subjective/Objective
He is feeling reasonably well. He reports no new symptoms. Physical examination is unchanged.
Vital Signs:
Vital Signs
Temp Pulse Resp BP Pulse Ox
97.3 F 70 18 106/92 97
01/15/24 13:15 01/15/24 13:15 01/15/24 13:15 01/15/24 13:15 01/15/24 13:15
Lab Results:
Laboratory Data
WBC 33.5 10^3/uL (4.8-10.8) H 01/15/24 07:39
Hgb 7.4 g/dL (13.0-18.0) L 01/15/24 07:39
Plt Count 192 10^3/uL (130-400) 01/15/24 07:39
eGFR > 60.00 01/15/24 07:39
Orders
Orders
Orders From Last 24 Hours
01/15/24 07:39
Complete Blood Count/With Diff IN AM
--- NOTE | 2024-01-15 14:12 | VNURNOTE ---
Home Health Liaison met with patient's Melvina at 1130 to discuss [facility] nurse/therapy, visits, schedule and homebound status. Patient was at test. Melvina is agreeable and understands that visits at home will be 2-3 x per week to assess and teach
medical management. Melvina confirmed that [facility]int has a scale and is able to log a daily weight.
[facility] brochure provided with contact information. Melvina is aware that [facility] will contact them for start of care in 1-2 days after discharge from .
[facility] referral completed in [facility].
[2024-01-15] MEDS: LIPITOR 40 MG PO (17:19)
[2024-01-15] MEDS: VITAMIN D3 (cholecalciferol) PO (17:19)
[2024-01-15 17:23] LABS: B.E. -2.8 mmol/L; HCO3 20.4 mmol/L (21-28); O2 Saturation % 99.1 % (94-98); PCO2 28 mmHg (35-48); PO2 102 mmHg (83-108); pH 7.47 (7.35-7.45)
[2024-01-15] MEDS: HEPARIN 5000 UNITS SC (19:20)
[2024-01-15] MEDS: TOPROL XL PO (19:27)
--- NOTE | 2024-01-16 03:24 | DOWNTIME ---
There was a [facility] Client [employer] Operator Downtime on 01/15/2024 from 0100 to 01/16/2024 at 0300. Downtime documentation of patient's care, including medication administrations, has been reconciled in the electronic record per guidelines. Refer to the
patient's paper chart under the miscellaneous tab to see printed paper medication records and downtime forms.
[2024-01-16 05:33] VITALS: BMI 24.4
[2024-01-16] MEDS: SYNTHROID 75 MCG PO (05:55)
[2024-01-16] MEDS: MIRALAX 17 GRAMS PO (05:59)
[2024-01-16 07:00] VITALS: BP 95/67
--- NOTE | 2024-01-16 07:54 | W.PN.ONC2 ---
Today's Communication / Plan
-
Discharge planning.
Await results of bone marrow biopsy, PNH testing, and today CBCs.
Consider 1 additional unit of PRBCs for hemoglobin <7.5 if we can get 1 and before discharge so that we do not have to scramble as outpatient.
Supportive care with transfusions as needed. Luckily, he has only needed 2 units and none since 01/03.
Impression
Impression
WILLEM Conner positive hemolytic anemia
SIADH/hyponatremia
Lymphopenia likely post Rituxan
Hypogammaglobulinemia
Plan
Plan
Today's CBC. Await results of bone marrow biopsy. PNH testing was drawn 01/10 and results are pending. [facility].
Blood from [place] when needed usually takes a day or two due to circulating antibodies.
Inpt marrow done 01/13. Awaiting pathologic results
ANC improved today with G-CSF support.
Suggested subacute rehab for pt, really wants to take him home. Discussed that it may be challenging for him to get enough PT at home to regain his strength.
BAL resulted noted, negative for PCP.
Subjective/Objective
Chief Complaint
ACS Heme Onc
Subjective
Feels better. Spirits seem better. I suspect it is because of the improved white blood count following G-CSF
Vital Signs:
Vital Signs
Temp Pulse Resp BP Pulse Ox
97.6 F 76 18 106/63 96
01/15/24 23:00 01/15/24 23:00 01/15/24 23:00 01/15/24 23:00 01/15/24 23:00
Lab Results:
Laboratory Data
WBC 33.5 10^3/uL (4.8-10.8) H 01/15/24 07:39
Hgb 7.4 g/dL (13.0-18.0) L 01/15/24 07:39
Plt Count 192 10^3/uL (130-400) 01/15/24 07:39
eGFR > 60.00 01/15/24 07:39
Physical Exam
Cardiology: S1 and S2
Pulmonary: Clear
GI: Soft
[2024-01-16] MEDS: FOLVITE 1 MG PO (08:00)
[2024-01-16] MEDS: ASPIR LOW (ENTERIC COATED) 81 MG PO (08:00)
[2024-01-16] MEDS: VITAMIN B-12 1000 MCG PO (08:00)
[2024-01-16] MEDS: LASIX 40 MG PO (08:00)
[2024-01-16] MEDS: BACTRIM DS 800 MG/160 MG 2 TABLET PO ×3 (08:00→20:32)
[2024-01-16] MEDS: DELTASONE 30 MG PO (08:00)
[2024-01-16] MEDS: PROTONIX 40 MG PO (08:00)
[2024-01-16] MEDS: VITAMIN D3 (cholecalciferol) 25 MCG PO (08:00)
[2024-01-16] MEDS: TOPROL XL PO ×2 (08:00→09:32)
[2024-01-16] MEDS: HEPARIN 5000 UNITS SC ×2 (08:02→20:27)
[2024-01-16 08:03] LABS: Mean Corp Hgb Conc. 32.4 g/dL (33.0-37.0); Mean Corpuscular Hgb 32.1 pg (27.0-31.0); Mean Corpuscular Volume 99.1 fL (80.0-94.0); Platelet Count 161 10^3/uL (130-400); Red Blood Cell Count 2.12 10^6/uL (4.70-6.10); Red Cell Dist. Width 17.7 % (11.5-14.5); White Blood Cell Count 17.9 10^3/uL (4.8-10.8)
[2024-01-16] MEDS: PROCTOFOAM-HC FOAM RECTAL (08:03)
[2024-01-16 08:05] LABS: Hemoglobin 6.8 g/dL (13.0-18.0)
[2024-01-16] MEDS: URE-NA 15 GRAMS PO ×2 (08:09→20:32)
[2024-01-16] MEDS: SODIUM CHLORIDE 1 GRAM PO ×2 (08:09→20:28)
[2024-01-16 08:20] LABS: Blood Urea Nitrogen 41 mg/dl (9-20); Calcium 8.6 mg/dl (8.4-10.2); Carbon Dioxide 22 mmol/L (22-30); Chloride 97 mmol/L (98-107); Estimated Creatinine Clearance 51 ml/min; Glucose 75 mg/dl (70-99); Potassium 4.7 mmol/L (3.5-5.1); Sodium 128 mmol/L (135-145); eGFR > 60.00
[2024-01-16 09:27] VITALS: BP 108/71; BP 109/71; PULSE 82; O2SAT 98
--- NOTE | 2024-01-16 09:41 | W.PN.HOSP.TC ---
Today's Communication/Plan
-
.
Assessment / Plan
Assessment / Plan
Physical Exam
General: Not in acute distress
HEENT: Normocephalic, Moist mucous membranes and Atraumatic
Respiratory: clear bilaterally.
Cardiac: S1/S2.
GI: Soft, Non Tender, Non Distended and Normal Bowel Sounds
Musculoskeletal: No Cyanosis
Skin: Warm. Dry.
Neuro: Nonfocal/grossly intact
Psych: no agitation, calm.

Assessment/Plan
78 male came in with shortness of breath and anemia. History of hemolytic anemia but testing not compatible with hemolysis event. As of January 07, 2024 he received 2 units of blood - he needed blood from [facility] due to antibodies. His hemoglobin
stable as of January 07, 2024. Prednisone is causing him significant muscle weakness/myopathy in lower extremity. Diagnosed with possible bilateral pneumonia. On IV antibiotics. CT chest done and possibly also pulmonary edema. IV Lasix was given.
Oncology/pulmonary/cardiology are seeing him.
# Hemorrhoidal bleeding,
resolved.
# History of WILLEM Conner positive hemolytic anemia/ Hyperproliferative (elevated reticulocyte count) recurrent acute anemia/ History of WILLEM Conner positive hemolytic anemia/ Lymphopenia likely post Rituxan/ Hypogammaglobulinemia/ Progressive
Leukopenia
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
S/P Rituxan therapy monthly
On chronic prednisone therapy: taper prednisone as per hematology: taper Prednisone 40mg/day 01/09/24 and further taper as able on weekly bases.
s/p transfusion of 2 units.
Await another transfusion
Granix January 11, 2024 -- WBC count improving, no need for further doses.
Neutropenic Precautions can be removed.
Transfuse w/ least incompatible blood from the [facility] as needed to maintain Hgb >7 and plt>20k
Primary oncologist Dr Rojas.
Appreciate hematology input
# Sepsis (leukocytosis, tachycardia, borderline hypoxic, weakness) secondary to interstitial pneumonia in the setting of immunocompromise status from recent Rituxan & high dose steroid.
Acute hypoxic respiratory failure.
Bilateral patchy infiltrates
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
Recurrent left pleural effusion - resolved
- Repeat chest x ray 01/14 showed interval improvement.
-Status post Vancomycin and Zosyn
-Differential diagnosis also includes hypersensitivity pneumonitis from Rituxan ( high likely), opportunistic infection, Pneumocystis, fungal infection, bronchiolitis obliterans organizing pneumonia (BOOP)
-Bronchoscopy performed on January 09, 2024 and BAL sent for fungus, respiratory and AFB, viral, RSV, legionella DFA, and PCP rule out (Silver stain)
-Consulted ID for prophylaxis against opportunistic infections given steroid and Rituxan use
-Continue empiric PJP treatment with Bactrim DS 2 tabs tid pending path/silver stain is negative for PJP
-Held PO potassium while on high dose Bactrim
Appreciate ID& hematology input
# Acute on chronic heart failure with a preserved ejection fraction.
-Echo 01/01/24: EF 60-65%, mild conc LVH, stage II diastolic dysfunction, mild MR mod AR, mild TR
-Status post IV Lasix
-Continue with Lasix 40 mg PO daily
-Appreciate cardiology input, recommendations appreciated
# Hypokalemia, replaced
# Hyponatremia, History of hyponatremia associated seizure
# History of recurrent hyponatremia/SIADH
Sodium stable in the low 130s to upper 120s
No confusion
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 Continue sodium tablets and urea with the fluid restriction. S/p one dose of Tolvaptan 01/02.
#History of SVT
-Continue metoprolol
#Mild to moderate aortic regurgitation
#Essential hypertension
#Recurrent left pleural effusion
Chest x ray on admission no significant left effusion, CT showed decreasing volume.
#Hypothyroidism
-Continue levothyroxine
#Bullous pemphigoid
#History of CVA
-Continue statin & aspirin.
BPH
Diverticulosis
Chronic multilevel vertebral body endplate fractures
History of fatty liver
History of bullous pemphigoid
History of colon cancer 2019
Hypothyroidism
BPH
Diverticulosis
DNR/DNI
DVT prophylaxis�heparin
Cardiac diet
Total time spent to see the patient, examine the patient on the floor, review data and lab results, discuss treatment plan with patient, and nursing staff around 57 minutes
Anticipated Discharge: Within 24 hours
Subjective/Interval History
-
Date of Service: January 16, 2024
No complaints
reports weakness but not worsening
No worsening SOB or chest pain
Objective Data
-
Labs:
Laboratory Results
01/16/24
07:08
WBC 17.9 H
Hgb 6.8 L*
Hct 21.0 L
Plt Count 161
Sodium 128 L
Potassium 4.7
Chloride 97 L
Carbon Dioxide 22
BUN 41 H
Creatinine 1.2
Glucose 75
Calcium 8.6
Vital Signs:
Vital Signs
Temp Pulse Resp BP Pulse Ox
97.6 F 90 20 95/67 97
01/16/24 07:00 01/16/24 07:00 01/16/24 07:00 01/16/24 07:00 01/16/24 07:00
I&O
01/15/24 01/16/24 01/17/24
06:59 06:59 06:59
Intake Total 540 / 540 1630 / 1630
Output Total 850 / 850 400 / 400
Balance -310 / -310 1230 / 1230
--- NOTE | 2024-01-16 12:45 | W.PN.PUL3 ---
Today's Communication / Plan
-
ABG reviewed with adequate oxygenation on room air, PaO2 >100
Awaiting home O2 eval
Ongoing anemia w/u and treatment
PJP treatment per ID
Nothing further to add from our perspective
We will sign off at this time, please call with questions
Assessment
-
78-year-old male with complex medical history including recurrent hyponatremia, autoimmune hemolytic anemia, hypertension bullous pemphigoid who presents with increased shortness of breath for few days. He was found to be anemic. We are asked to
comment on his pulmonary process
Bilateral patchy infiltrates/Abnl CT
s/p bronch with BAL 01/09/24, neg cultures, lingula BAL + yeast
DAH ruled out given no blood seen on serial aliquots during BAL
History of hemolytic anemia
Warm antibody autoimmune hemolysis
Rituxan therapy monthly
On chronic prednisone therapy
Recurrent left pleural effusion
s/p Thora 09/26, 09/28, 10/09 (cytology Neg)
Mild MR, moderate AR
PA pressure 35
Normal biventricular function
Hyponatremia/hypokalemia
Elevated lactate
Depressed IgG
Pancytopenia now on granix
Conditions present prior to admission
History of SVT
History of stroke
History of recurrent hyponatremia/SIADH
Chronic autoimmune hemolytic anemia
Hypertension
History of bullous pemphigoid
History of colon cancer 2018
Hypothyroidism
BPH
Diverticulosis
Plan/recommendations
At this time, patient appears to be stable from a pulmonary standpoint
Remains on 2L but not known to be on home O2
Home O2 eval obtained
ABG reviewed with adequate oxygenation on RA
Ongoing neutropenia noted
Salient features include chronic high-dose steroid therapy
Recent Rituxan therapy 1 month ago, now presents with progressive shortness of breath
Lower extremity edema and chest x-ray suggestive of bilateral infiltrates
Given his neutropenia with extended steroid usage, bactrim DS started on 01/08
Follow-up blood cultures and follow up BAL cultures and cytology--negative so far, BAL lingula + yeast
MRSA screen positive
He is on Bactrim per ID for possible PCP prophylaxis
History of recurrent left pleural effusion noted, drained x 3 back in September and October 2023, has not recurred
Anemia noted, specifically in the setting of lack of obvious hemolysis per Hematology correspondence
No evidence of DAH on bronch
Status post transfusion on 01/02 + 01/04/2024, hemoglobin now slowly downtrending post-transfusion
Volume overload a component
Echocardiogram normal with increased ProBNP on admission.
Chest x-ray- persistent bilateral infiltrates, no change
CT chest 01/06/2024: Reviewed, showed widespread bilateral predominantly centrally located groundglass opacities new compared to prior study. Infectious, pulmonary edema, inflammatory. Tiny right and left pleural effusion.
Now on oral Lasix 40mg PO daily
Negative fluid balance-cardiology has signed off
For hemolytic anemia patient remains on prednisone 40 mg. No evidence for ongoing hemolysis per hematology.
Hematology has evaluated the patient this admission.
Patient received 2 units of packed red blood cells this admission with improvement in hemoglobin.
Trend hemoglobin and tranfuse to keep Hb>7, and keep plt>20k
Granix as per hematology; trend ANC count
For eventual bone marrow biopsy as outpatient
Inflammatory pneumonitis from Rituxan therapy also possibility.
Continue steroids for now with prednisone and slow taper.
Outpatient pulmonary FU can be arranged if SOB ongoing, this is placed on his discharge
Ongoing disposition efforts
Diagnosis Data
CT Chest without contrast 01-06-2024: Widespread bilateral predominantly central groundglass opacities new in the interval since prior study. Findings are nonspecific and may be inflammatory/infectious or represent pulmonary edema. New tiny right
pleural effusion and tiny left pleural effusion significantly decreased. Old granulomatous disease as noted by calcified left hilar lymph nodes and small calcified left lower lobe pulmonary nodule again seen.
ECHO 01/01/24- Normal left ventricular chamber size. Normal left ventricular systolic function. No gross regional wall motion abnormalities within limits of the study. Left ventricular ejection fraction is 60-65%. Mild concentric left ventricular
hypertrophy. Stage II diastolic dysfunction suggestive of abnormal relaxation and increased filling pressures. Normal right ventricular size and function. Mild mitral regurgitation. Moderate aortic regurgitation. Mild tricuspid regurgitation.
Estimated pulmonary artery pressure of 30-35 mmHg. Assuming a right atrial pressure of 3 mmHg. Compared to prior study dated 10/19/23, there is no significant change
Subjective Data
-
Date of Service:
Date of Service: January 16, 2024
Chief Complaint: Pulmonary Follow Up and Dyspnea Follow Up
Subjective:
no new events
remains clinically unchanged
fatigue ongoing
Objective Data
Data Reviewed
Vital Signs / I&O / Oxygen:
Vital Signs
Temp Pulse Resp BP Pulse Ox
97.6 F 90 20 95/67 97
01/16/24 07:00 01/16/24 07:00 01/16/24 07:00 01/16/24 07:00 01/16/24 07:00
Intake and Output
01/15/24 01/16/24 01/17/24
06:59 06:59 06:59
Intake Total 540 / 540 1630 / 1630
Output Total 850 / 850 400 / 400
Balance -310 / -310 1230 / 1230
SaO2 97
Nasal Cannula flow liters per 1
minute
Physical Exam
General: Comfortable
HEENT: Normocephalic and Anicteric
Cardiovascular: S1-S2, Regular Rhythm, Murmur (n), Rub (n) and Peripheral Edema (+1-2 LE pitting edema)
Respiratory: Clear, Wheeze (n), Rhonchi (n) and Non-Labored Respirations
GI: Soft, Non Distended and Non Tender
Neurology: Awake, Alert, Oriented, AO x 3 and No Motor Deficits (Moves all extremities, able to sit up with minimal assistance)
Skin: Jaundice (n), Rash (n) and Bruising (n)
Labs/Micro/Reports
Lab Data
01/16/24 07:08
01/16/24 07:08
Laboratory Results
01/15/24
17:07
pH 7.47 H
pCO2 28 L
pO2 102
HCO3 20.4 L
O2 Delivery Level
Microbiology
01/09/24 10:38 Bronchoalveolar Lavage Fungal Culture - Final
Marcella albicans
01/09/24 10:38 Bronchoalveolar Lavage Acid Fast Bacilli Smear - Preliminary
01/09/24 10:38 Bronchoalveolar Lavage Acid Fast Bacilli Culture - Preliminary
01/09/24 10:38 Bronchoalveolar Lavage Respiratory Virus Culture - Preliminary
01/09/24 10:37 Bronchoalveolar Lavage Specimen Source - Final
01/09/24 10:37 Bronchoalveolar Lavage Legionella pneumophila (Direct FA) - Final
01/09/24 10:37 Bronchoalveolar Lavage Legionella Culture - Preliminary
--- NOTE | 2024-01-16 14:16 | CM ---
Patient seen bedside.
hgb 6.8 today, await blood transfusion.
BMbx results (P).
patient currently off oxygen.
Plan: home with [facility], possible home oxygen needs.
--- NOTE | 2024-01-16 15:01 | W.PN.ID1 ---
Date of Service
Date of Service: January 16, 2024
Today's Communication
Continue Bactrim.
Assessment / Plan
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
# Neutropenia resolved after TBO-filgrastim; s/p BM bx 01/15/24
- Treating probable PJP PNA (risk factor - prolonged high dose steroid)
- s/p bronch/BAL 01/08. Cx usual resp torri. + yeast which is not significant
BAL path: silver stain negative for pneumocystis organisms
-s/p 9 days Vancomycin/Zosyn
- BAL silver stain for PJP has low sensitivity (80's) in non-HIV immunosuppressed host.
- Favor continuing empiric PJP tx as patient is clinically improving decreased oxygen requirement.
- Continue Bactrim DS 2 tabs tid (d8 ) through 01/29/24 followed by suppressive 1 tab daily while on prednisone >20mg/d.
Low potassium diet while on high dose Bactrim
- Weaning prednisone as per Hem/Onc, currently at 30mg/d
- Bone marrow bx result pending
#Additional Past Medical History:
Hypertension
Recurrent left pleural effusion
SVT
Hypothyroidism
Chronic SIADH
CVA
BP
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
Bullous pemphigoid
Fatty liver
Diverticulosis
Chronic lower extremity edema
Vertebral fracture
Chief Complaint
-: Pneumonia
Subjective / Review of Systems
Waiting for pRBC transfusion.
Vital Signs / Physical Exam
Vital Signs
Vital Signs
Temp Pulse Resp BP Pulse Ox
97.6 F 90 20 95/67 97
01/16/24 07:00 01/16/24 07:00 01/16/24 07:00 01/16/24 07:00 01/16/24 07:00
Physical Exam
Constitutional: No Acute Distress and Comfortable
Cardiovascular: Regular Rate and S1/S2
Pulmonary: Clear
Gastrointestinal: Soft, Non Tender, Non Distended and Normal Bowel Sounds
Extremities: Edema
Objective Data
Lab Data
Lab Results
01/16/24 07:08
01/16/24 07:08
Estimated Creat Clear 51 ml/min 01/16/24 07:08
Lactic Acid Cancelled 01/02/24 01:28
Total Bilirubin 1.3 mg/dl (0.2-1.3) 01/14/24 06:22
AST 27 U/L (17-59) 01/08/24 05:42
ALT 32 U/L (0-50) 01/08/24 05:42
Alkaline Phosphatase 81 U/L (38-126) 01/08/24 05:42
C-Reactive Protein 28.50 mg/L (0.0-10.00) H 01/09/24 06:11
Most recent labs reviewed.
Micro Results:
01/09/24 10:38 Fungal Culture - Final
Bronchoalveolar Lavage Marcella albicans
01/09/24 10:38 Acid Fast Bacilli Smear - Preliminary
Bronchoalveolar Lavage Acid Fast Bacilli Culture - Preliminary
Respiratory Virus Culture - Preliminary
01/09/24 10:37 Specimen Source - Final
Bronchoalveolar Lavage Legionella pneumophila (Direct FA) - Final
Legionella Culture - Preliminary
01/09/24 10:38 Respiratory Culture - Final
Bronch Right Middle Lobe Usual Respiratory Torri
Gram Stain - Final
01/01/24 16:02 Blood Culture - Final
Blood/Venous No Growth - Final Report
01/01/24 14:51 Blood Culture - Final
Blood/Venous No Growth - Final Report
01/02/24 09:15 Nasal Screen MRSA (PCR) - Final
Nose Staph aureus MRSA
01/01/24 17:25 Legionella Urinary Antigen - Final
Urine Negative for Legionella pneumophila Serogroup 1 antigen.
A negative result does not rule out the possiblity of
Legionella infection due to other serogroups or species of
Legionella. Clinical correlation is recommended.
Streptococcus pneumoniae Antigen (M - Final
Negative for Streptococcus pneumoniae antigen.
A negative result does not exclude infection with
Streptococcus pneumoniae. Clinical correlation is
recommended.
01/01/24 14:51 Influenza Types A & B (ORLY) - Final
Nasal Swab Negative for Influenza A & B, NAAT
Negative results must be combined with clinical observations
and patient history.
Nucleic Acid Amplification test (NAAT)performed on the
[employer] platform.
01/15/24 CXR: Patchy foci of airspace consolidation bilaterally, most suggestive of pneumonia. Improved aeration compared to prior chest x-ray dated 01/09/2024
01/09/24 CXR: Persistent bilateral pulmonary parenchymal process. There appears to be slightly improved aeration in the upper lobes. Slightly increased subtle opacity in the right lower lobe.
01/06/[address]: Widespread bilateral predominantly central groundglass opacities new in the interval since prior study. Findings are nonspecific and may be inflammatory/infectious or represent pulmonary edema. New tiny right pleural effusion and
tiny left pleural effusion significantly decreased. Old granulomatous disease as noted by calcified left hilar lymph nodes and small calcified left lower lobe pulmonary nodule again seen.
01/01/24 CXR: There is moderate diffuse coarsening of the interstitial markings throughout both lungs which I favor reflects interstitial pneumonia rather than pulmonary edema though correlation with the patient's BNP is recommended.
[2024-01-16] MEDS: LIPITOR 40 MG PO (17:59)
[2024-01-16] MEDS: TOPROL XL 25 MG PO (20:28)
[2024-01-16 21:43] VITALS: BP 112/64
[2024-01-16 21:59] VITALS: BP 107/64
[2024-01-16 22:58] VITALS: BP 103/56
[2024-01-17 00:26] VITALS: BP 109/64
--- NOTE | 2024-01-17 00:26 | PTCARENOTE ---
Pt received 1 unit of PRBC, most least incompatible, without difficulty.
[2024-01-17] MEDS: SYNTHROID 75 MCG PO (05:23)
[2024-01-17 06:00] VITALS: BMI 24.1
[2024-01-17] MEDS: MIRALAX 17 GRAMS PO (06:37)
[2024-01-17 07:36] VITALS: BP 109/60
[2024-01-17 08:10] LABS: Hematocrit 25.7 % (39.0-52.0); Hemoglobin 8.5 g/dL (13.0-18.0); Mean Corp Hgb Conc. 33.1 g/dL (33.0-37.0); Mean Corpuscular Hgb 31.4 pg (27.0-31.0); Mean Corpuscular Volume 94.8 fL (80.0-94.0); Platelet Count 141 10^3/uL (130-400); Red Blood Cell Count 2.71 10^6/uL (4.70-6.10); Red Cell Dist. Width 19.7 % (11.5-14.5); White Blood Cell Count 9.7 10^3/uL (4.8-10.8)
[2024-01-17] MEDS: VITAMIN D3 (cholecalciferol) 25 MCG PO (08:10)
[2024-01-17] MEDS: VITAMIN B-12 1000 MCG PO (08:10)
[2024-01-17] MEDS: FOLVITE 1 MG PO (08:10)
[2024-01-17] MEDS: URE-NA 15 GRAMS PO ×2 (08:10→19:54)
[2024-01-17] MEDS: PROTONIX 40 MG PO (08:10)
[2024-01-17] MEDS: TOPROL XL 25 MG PO ×2 (08:10→19:54)
[2024-01-17] MEDS: ASPIR LOW (ENTERIC COATED) 81 MG PO (08:10)
[2024-01-17] MEDS: DELTASONE 30 MG PO (08:10)
[2024-01-17] MEDS: LASIX 40 MG PO (08:10)
[2024-01-17] MEDS: BACTRIM DS 800 MG/160 MG 2 TABLET PO ×3 (08:10→21:11)
[2024-01-17] MEDS: SODIUM CHLORIDE 1 GRAM PO ×2 (08:10→19:54)
[2024-01-17] MEDS: PROCTOFOAM-HC FOAM 1 GM RECTAL (08:12)
[2024-01-17] MEDS: HEPARIN 5000 UNITS SC ×2 (08:13→19:52)
[2024-01-17 08:36] LABS: Blood Urea Nitrogen 35 mg/dl (9-20); Calcium 8.6 mg/dl (8.4-10.2); Carbon Dioxide 20 mmol/L (22-30); Chloride 96 mmol/L (98-107); Estimated Creatinine Clearance 55 ml/min; Glucose 90 mg/dl (70-99); Potassium 4.7 mmol/L (3.5-5.1); Sodium 127 mmol/L (135-145); eGFR > 60.00
--- NOTE | 2024-01-17 10:35 | W.PN.ONC ---
Today's Communication / Plan
-
Molecular testing pending which will expedite availability of packed red blood cells
Currently finding available units is requiring longer than 72 hours which represents a valid type and cross
Will attempt to arrange transfusion in the emergency room on Sunday with the current pending type and cross
Pathology is expediting
Previous unit that was typed and crossed is now [address] [facility] unwilling to release to the patient
Inpt marrow done 01/13. Awaiting pathologic results
ANC improved today with G-CSF support
Anticipate discharge
Impression
Impression
WILLEM Conner positive hemolytic anemia
SIADH/hyponatremia
Lymphopenia likely post Rituxan
Hypogammaglobulinemia
Plan
Plan
BAL resulted noted, negative for PCP
Subjective/Objective
Subjective/Objective
Patient clinically stable but frustrated.
Vital Signs:
Vital Signs
Temp Pulse Resp BP Pulse Ox
97.4 F 76 20 109/60 98
01/17/24 07:36 01/17/24 07:36 01/17/24 07:36 01/17/24 07:36 01/17/24 07:36
PE
No scleral icterus
Regular without murmurs
Reduced crepitance improved from last exam
Symmetrical lower extremities
Lab Results:
Laboratory Data
WBC 9.7 10^3/uL (4.8-10.8) 01/17/24 07:37
Hgb 8.5 g/dL (13.0-18.0) L D 01/17/24 07:37
Plt Count 141 10^3/uL (130-400) 01/17/24 07:37
eGFR > 60.00 01/17/24 07:37
[2024-01-17 12:19] VITALS: BP 93/64; BP 95/62; PULSE 81; O2SAT 97
[2024-01-17 15:00] VITALS: BP 103/63
--- NOTE | 2024-01-17 15:48 | CM ---
Spoke with spouse.
Patient s/p transfusion with hgb now 8.5.
Plan is for another unit prior to d/c.
ambulated with PT.
Oxygen saturations good off O2.
Plan: home with [facility] when stable.
--- NOTE | 2024-01-17 15:52 | W.PN.ID1 ---
Date of Service
Date of Service: January 17, 2024
Today's Communication
Continue Bactrim DS 2 tabs tid through 01/29/24.
Follow BMP one or twice a week while till 01/29/24.
Assessment / Plan
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
# Neutropenia resolved after TBO-filgrastim; s/p BM bx 01/15/24
- Treating probable PJP PNA (risk factor - prolonged high dose steroid)
- s/p bronch/BAL 01/08. Cx usual resp torri. + yeast which is not significant
BAL path: silver stain negative for pneumocystis organisms
-s/p 9 days Vancomycin/Zosyn
- BAL silver stain for PJP has low sensitivity (80's) in non-HIV immunosuppressed host.
- Favor continuing empiric PJP tx as patient is clinically improving now off oxygen requirement.
- Continue Bactrim DS 2 tabs tid (d8 of ) through 01/29/24 followed by suppressive 1 tab daily while on prednisone >20mg/d.
Low potassium diet while on high dose Bactrim
- Follow K+, BUN, Cr while on high dose Bactrim. Pt gets weekly lab outpatient.
- Weaning prednisone as per Hem/Onc, currently at 30mg/d
- Bone marrow bx result pending
#Additional Past Medical History:
Hypertension
Recurrent left pleural effusion
SVT
Hypothyroidism
Chronic SIADH
CVA
BP
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
Bullous pemphigoid
Fatty liver
Diverticulosis
Chronic lower extremity edema
Vertebral fracture
Chief Complaint
-: Pneumonia
Subjective / Review of Systems
Off oxygen. Feels well. Waiting for 2nd unit of blood transfusion.
Vital Signs / Physical Exam
Vital Signs
Vital Signs
Temp Pulse Resp BP Pulse Ox
97.4 F 76 20 109/60 98
01/17/24 07:36 01/17/24 07:36 01/17/24 07:36 01/17/24 07:36 01/17/24 07:36
Physical Exam
Constitutional: No Acute Distress and Comfortable
Cardiovascular: Regular Rate and S1/S2
Pulmonary: Clear
Gastrointestinal: Soft, Non Tender, Non Distended and Normal Bowel Sounds
Objective Data
Lab Data
Lab Results
01/17/24 07:37
01/17/24 07:37
Estimated Creat Clear 55 ml/min 01/17/24 07:37
Lactic Acid Cancelled 01/02/24 01:28
Total Bilirubin 1.3 mg/dl (0.2-1.3) 01/14/24 06:22
AST 27 U/L (17-59) 01/08/24 05:42
ALT 32 U/L (0-50) 01/08/24 05:42
Alkaline Phosphatase 81 U/L (38-126) 01/08/24 05:42
C-Reactive Protein 28.50 mg/L (0.0-10.00) H 01/09/24 06:11
Most recent labs reviewed.
Micro Results:
01/09/24 10:38 Fungal Culture - Final
Bronchoalveolar Lavage Marcella albicans
01/09/24 10:38 Acid Fast Bacilli Smear - Preliminary
Bronchoalveolar Lavage Acid Fast Bacilli Culture - Preliminary
Respiratory Virus Culture - Preliminary
01/09/24 10:37 Specimen Source - Final
Bronchoalveolar Lavage Legionella pneumophila (Direct FA) - Final
Legionella Culture - Preliminary
01/09/24 10:38 Respiratory Culture - Final
Bronch Right Middle Lobe Usual Respiratory Torri
Gram Stain - Final
01/01/24 16:02 Blood Culture - Final
Blood/Venous No Growth - Final Report
01/01/24 14:51 Blood Culture - Final
Blood/Venous No Growth - Final Report
01/02/24 09:15 Nasal Screen MRSA (PCR) - Final
Nose Staph aureus MRSA
01/01/24 17:25 Legionella Urinary Antigen - Final
Urine Negative for Legionella pneumophila Serogroup 1 antigen.
A negative result does not rule out the possiblity of
Legionella infection due to other serogroups or species of
Legionella. Clinical correlation is recommended.
Streptococcus pneumoniae Antigen (M - Final
Negative for Streptococcus pneumoniae antigen.
A negative result does not exclude infection with
Streptococcus pneumoniae. Clinical correlation is
recommended.
01/01/24 14:51 Influenza Types A & B (ORLY) - Final
Nasal Swab Negative for Influenza A & B, NAAT
Negative results must be combined with clinical observations
and patient history.
Nucleic Acid Amplification test (NAAT)performed on the
[employer] platform.
01/15/24 CXR: Patchy foci of airspace consolidation bilaterally, most suggestive of pneumonia. Improved aeration compared to prior chest x-ray dated 01/09/2024
01/09/24 CXR: Persistent bilateral pulmonary parenchymal process. There appears to be slightly improved aeration in the upper lobes. Slightly increased subtle opacity in the right lower lobe.
01/06/[address]: Widespread bilateral predominantly central groundglass opacities new in the interval since prior study. Findings are nonspecific and may be inflammatory/infectious or represent pulmonary edema. New tiny right pleural effusion and
tiny left pleural effusion significantly decreased. Old granulomatous disease as noted by calcified left hilar lymph nodes and small calcified left lower lobe pulmonary nodule again seen.
01/01/24 CXR: There is moderate diffuse coarsening of the interstitial markings throughout both lungs which I favor reflects interstitial pneumonia rather than pulmonary edema though correlation with the patient's BNP is recommended.
--- NOTE | 2024-01-17 16:15 | W.PN.HOSP.TC ---
Today's Communication/Plan
-
See note for further input regarding dc plan
Assessment / Plan
Assessment / Plan
Physical Exam
General: Not in acute distress
HEENT: Normocephalic, Moist mucous membranes and Atraumatic
Respiratory: clear bilaterally.
Cardiac: S1/S2.
GI: Soft, Non Tender, Non Distended and Normal Bowel Sounds
Musculoskeletal: No Cyanosis
Skin: Warm. Dry.
Neuro: Nonfocal/grossly intact
Psych: no agitation, calm.

Assessment/Plan
78 male came in with shortness of breath and anemia. History of hemolytic anemia but testing not compatible with hemolysis event. As of January 07, 2024 he received 2 units of blood - he needed blood from [place] due to antibodies. His hemoglobin
stable as of January 07, 2024. Prednisone is causing him significant muscle weakness/myopathy in lower extremity. Diagnosed with possible bilateral pneumonia. On IV antibiotics. CT chest done and possibly also pulmonary edema. IV Lasix was given.
Oncology/pulmonary/cardiology are seeing him.
# Anemia, need for transfusion
Pt and his want to stay in hospital for another unit. Dr Natarajan arranged a unit as OP through ER with help of the pathology slot machine department floorperson Dr Harp but they declined citing concern about the process/ pt's mobility. They refused SNF and pt
seemed to be ok to go home with home health per PT evaluation. I d/w Blood bank, order will remain for transfusion of one unit.
# Hemorrhoidal bleeding,
resolved.
# History of WILLEM Conner positive hemolytic anemia/ Hyperproliferative (elevated reticulocyte count) recurrent acute anemia/ History of WILLEM Conner positive hemolytic anemia/ Lymphopenia likely post Rituxan/ Hypogammaglobulinemia/ Progressive
Leukopenia
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
S/P Rituxan therapy monthly
On chronic prednisone therapy: taper prednisone as per hematology: taper Prednisone 40mg/day 01/09/24 and further taper as able on weekly bases.
s/p transfusion of 2 units.
Await another transfusion. HGB 8.5
Granix January 11, 2024 -- WBC count improving, no need for further doses.
Neutropenic Precautions , removed.
Transfuse w/ least incompatible blood from the [place] as needed to maintain Hgb >7 and plt>20k
Primary oncologist Dr Rojas.
Appreciate hematology input
# Sepsis (leukocytosis, tachycardia, borderline hypoxic, weakness) secondary to interstitial pneumonia in the setting of immunocompromise status from recent Rituxan & high dose steroid.
Acute hypoxic respiratory failure. Resolved.
Bilateral patchy infiltrates
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
Recurrent left pleural effusion - resolved
- Repeat chest x ray 01/14 showed interval improvement.
-Status post Vancomycin and Zosyn
-Differential diagnosis also includes hypersensitivity pneumonitis from Rituxan ( high likely), opportunistic infection, Pneumocystis, fungal infection, bronchiolitis obliterans organizing pneumonia (BOOP)
-Bronchoscopy performed on January 09, 2024 and BAL sent for fungus, respiratory and AFB, viral, RSV, legionella DFA, and PCP rule out (Silver stain)
-Consulted ID for prophylaxis against opportunistic infections given steroid and Rituxan use
-Continue empiric PJP treatment with Bactrim DS 2 tabs tid pending path/silver stain is negative for PJP
-Held PO potassium while on high dose Bactrim
Appreciate ID& hematology input
# Acute on chronic heart failure with a preserved ejection fraction.
-Echo 01/01/24: EF 60-65%, mild conc LVH, stage II diastolic dysfunction, mild MR mod AR, mild TR
-Status post IV Lasix
-Continue with Lasix 40 mg PO daily
-Appreciate cardiology input, recommendations appreciated
# Hypokalemia, replaced
# Hyponatremia, History of hyponatremia associated seizure
# History of recurrent hyponatremia/SIADH
Sodium stable in the low 130s to upper 120s
No confusion
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 Continue sodium tablets and urea with the fluid restriction. S/p one dose of Tolvaptan 01/02.
#History of SVT
-Continue metoprolol
#Mild to moderate aortic regurgitation
#Essential hypertension
#Recurrent left pleural effusion
Chest x ray on admission no significant left effusion, CT showed decreasing volume.
#Hypothyroidism
-Continue levothyroxine
#Bullous pemphigoid
#History of CVA
-Continue statin & aspirin.
BPH
Diverticulosis
Chronic multilevel vertebral body endplate fractures
History of fatty liver
History of bullous pemphigoid
History of colon cancer 2018
Hypothyroidism
BPH
Diverticulosis
DNR/DNI
DVT prophylaxis�heparin
Cardiac diet
Total time spent to see the patient, examine the patient on the floor, review data and lab results, discuss treatment plan with patient, and nursing staff around 57 minutes
Anticipated Discharge: 24 - 48 hours
Subjective/Interval History
-
Date of Service: January 17, 2024
Objective Data
-
Labs:
Laboratory Results
01/17/24
07:37
WBC 9.7
Hgb 8.5 L D
Hct 25.7 L
Plt Count 141
Sodium 127 L
Potassium 4.7
Chloride 96 L
Carbon Dioxide 20 L
BUN 35 H
Creatinine 1.1
Glucose 90
Calcium 8.6
Vital Signs:
Vital Signs
Temp Pulse Resp BP Pulse Ox
97.4 F 76 20 109/60 98
01/17/24 07:36 01/17/24 07:36 01/17/24 07:36 01/17/24 07:36 01/17/24 07:36
I&O
01/16/24 01/17/24 01/18/24
06:59 06:59 06:59
Intake Total 1630 / 1630 1136 / 1136
Output Total 400 / 400 1050 / 1050
Balance 1230 / 1230 86 / 86
[2024-01-17] MEDS: LIPITOR 40 MG PO (16:21)
[2024-01-17 23:34] VITALS: BP 120/65
[2024-01-18 05:38] VITALS: BMI 23.9
[2024-01-18] MEDS: SYNTHROID 75 MCG PO (06:19)
[2024-01-18 06:34] LABS: Blood Urea Nitrogen 40 mg/dl (9-20); Calcium 8.5 mg/dl (8.4-10.2); Carbon Dioxide 22 mmol/L (22-30); Chloride 94 mmol/L (98-107); Estimated Creatinine Clearance 51 ml/min; Glucose 72 mg/dl (70-99); Potassium 4.6 mmol/L (3.5-5.1); Sodium 125 mmol/L (135-145); eGFR > 60.00
[2024-01-18] MEDS: BACTRIM DS 800 MG/160 MG 2 TABLET PO ×3 (07:25→21:13)
[2024-01-18] MEDS: ASPIR LOW (ENTERIC COATED) 81 MG PO (07:25)
[2024-01-18] MEDS: DELTASONE 30 MG PO (07:25)
[2024-01-18] MEDS: FOLVITE 1 MG PO (07:26)
[2024-01-18] MEDS: LASIX 40 MG PO (07:26)
[2024-01-18] MEDS: HEPARIN 5000 UNITS SC ×2 (07:26→20:25)
[2024-01-18] MEDS: PROTONIX 40 MG PO (07:27)
[2024-01-18] MEDS: TOPROL XL 25 MG PO ×2 (07:27→20:24)
[2024-01-18] MEDS: MIRALAX 17 GRAMS PO (07:27)
[2024-01-18] MEDS: SODIUM CHLORIDE 1 GRAM PO ×2 (07:27→20:25)
[2024-01-18] MEDS: URE-NA 15 GRAMS PO ×2 (07:27→20:25)
[2024-01-18] MEDS: VITAMIN D3 (cholecalciferol) 25 MCG PO (07:28)
[2024-01-18] MEDS: VITAMIN B-12 1000 MCG PO (07:28)
[2024-01-18] MEDS: PROCTOFOAM-HC FOAM RECTAL (07:35)
[2024-01-18 07:37] VITALS: BP 107/68; BP 113/68
--- NOTE | 2024-01-18 11:54 | W.PN.HOSP.TC ---
Today's Communication/Plan
-
Would avoid frequent blood work. Pt is with extensive bruising
Await another one unit transfusion to discharge him
Assessment / Plan
Assessment / Plan
Physical Exam
General: Not in acute distress
HEENT: Normocephalic, Moist mucous membranes and Atraumatic
Respiratory: clear bilaterally.
Cardiac: S1/S2.
GI: Soft, Non Tender, Non Distended and Normal Bowel Sounds
Musculoskeletal: No Cyanosis
Skin: Warm. Dry.
Neuro: Nonfocal/grossly intact
Psych: no agitation, calm.

Assessment/Plan
78 male came in with shortness of breath and anemia. History of hemolytic anemia but testing not compatible with hemolysis event. As of January 07, 2024 he received 2 units of blood - he needed blood from [place] due to antibodies. His hemoglobin
stable as of January 07, 2024. Prednisone is causing him significant muscle weakness/myopathy in lower extremity. Diagnosed with possible bilateral pneumonia. On IV antibiotics. CT chest done and possibly also pulmonary edema. IV Lasix was given.
Oncology/pulmonary/cardiology are seeing him.
# Anemia, need for transfusion
Pt and his want to stay in hospital for another unit. Dr Natarajan arranged a unit as OP through ER with help of the pathology transit department clerk Dr Harp but they declined citing concern about the process/ pt's mobility. They refused SNF and pt
seemed to be ok to go home with home health per PT evaluation. I d/w Blood bank, order will remain for transfusion of one unit.
# Hemorrhoidal bleeding,
resolved.
# History of WILLEM Conner positive hemolytic anemia/ Hyperproliferative (elevated reticulocyte count) recurrent acute anemia/ History of WILLEM Conner positive hemolytic anemia/ Lymphopenia likely post Rituxan/ Hypogammaglobulinemia/ Progressive
Leukopenia
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
S/P Rituxan therapy monthly
On chronic prednisone therapy: taper prednisone as per hematology: taper Prednisone 40mg/day 01/09/24 and further taper as able on weekly bases.
s/p transfusion of 2 units.
Await another transfusion. HGB 8.5
Granix January 11, 2024 -- WBC count improving, no need for further doses.
Neutropenic Precautions , removed.
Transfuse w/ least incompatible blood from the [place] as needed to maintain Hgb >7 and plt>20k
Primary oncologist Dr Rojas.
Appreciate hematology input
# Sepsis (leukocytosis, tachycardia, borderline hypoxic, weakness) secondary to interstitial pneumonia in the setting of immunocompromise status from recent Rituxan & high dose steroid.
Acute hypoxic respiratory failure. Resolved.
Bilateral patchy infiltrates
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
Recurrent left pleural effusion - resolved
- Repeat chest x ray 01/14 showed interval improvement.
-Status post Vancomycin and Zosyn
-Differential diagnosis also includes hypersensitivity pneumonitis from Rituxan ( high likely), opportunistic infection, Pneumocystis, fungal infection, bronchiolitis obliterans organizing pneumonia (BOOP)
-Bronchoscopy performed on January 09, 2024 and BAL sent for fungus, respiratory and AFB, viral, RSV, legionella DFA, and PCP rule out (Silver stain)
-Consulted ID for prophylaxis against opportunistic infections given steroid and Rituxan use
-Continue empiric PJP treatment with Bactrim DS 2 tabs tid pending path/silver stain is negative for PJP
-Held PO potassium while on high dose Bactrim
Appreciate ID& hematology input
# Acute on chronic heart failure with a preserved ejection fraction.
-Echo 01/01/24: EF 60-65%, mild conc LVH, stage II diastolic dysfunction, mild MR mod AR, mild TR
-Status post IV Lasix
-Continue with Lasix 40 mg PO daily
-Appreciate cardiology input, recommendations appreciated
# Hypokalemia, replaced
# Hyponatremia, History of hyponatremia associated seizure
# History of recurrent hyponatremia/SIADH
Sodium stable in the low 130s to upper 120s
No confusion
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 Continue sodium tablets and urea with the fluid restriction. S/p one dose of Tolvaptan 5/2.
#History of SVT
-Continue metoprolol
#Mild to moderate aortic regurgitation
#Essential hypertension
#Recurrent left pleural effusion
Chest x ray on admission no significant left effusion, CT showed decreasing volume.
#Hypothyroidism
-Continue levothyroxine
#Bullous pemphigoid
#History of CVA
-Continue statin & aspirin.
BPH
Diverticulosis
Chronic multilevel vertebral body endplate fractures
History of fatty liver
History of bullous pemphigoid
History of colon cancer 2019
Hypothyroidism
BPH
Diverticulosis
DNR/DNI
DVT prophylaxis�heparin
Cardiac diet
Total time spent to see the patient, examine the patient on the floor, review data and lab results, discuss treatment plan with patient, and nursing staff around 45 minutes
Anticipated Discharge: 24 - 48 hours
Subjective/Interval History
-
Date of Service: January 18, 2024
No complaints
Objective Data
-
Labs:
Laboratory Results
01/18/24
04:59
Sodium 125 L
Potassium 4.6
Chloride 94 L
Carbon Dioxide 22
BUN 40 H
Creatinine 1.2
Glucose 72
Calcium 8.5
Vital Signs:
Vital Signs
Temp Pulse Resp BP Pulse Ox
97.8 F 82 18 107/68 100
01/18/24 07:37 01/18/24 07:37 01/18/24 07:37 01/18/24 07:37 01/18/24 07:50
I&O
01/17/24 01/18/24 01/19/24
06:59 06:59 06:59
Intake Total 1136 / 1136 840 / 840
Output Total 1050 / 1050 1230 / 1230
Balance 86 / 86 -390 / -390
--- NOTE | 2024-01-18 12:20 | W.PN.ONC ---
Today's Communication / Plan
-
await pathology from bone marrow
follow CBC
transfuse prn
Impression
Impression
WILLEM Conner positive hemolytic anemia
SIADH/hyponatremia
Lymphopenia likely post Rituxan
Hypogammaglobulinemia
Plan
Plan
-await pathology from bone marrow
-CBC in am
-transfuse prn
Subjective/Objective
Subjective/Objective
Feels slightly better, no SOB, no CP
Vital Signs:
Vital Signs
Temp Pulse Resp BP Pulse Ox
97.8 F 82 18 107/68 100
01/18/24 07:37 01/18/24 07:37 01/18/24 07:37 01/18/24 07:37 01/18/24 07:50
Lab Results:
Laboratory Data
WBC 9.7 10^3/uL (4.8-10.8) 01/17/24 07:37
Hgb 8.5 g/dL (13.0-18.0) L D 01/17/24 07:37
Plt Count 141 10^3/uL (130-400) 01/17/24 07:37
eGFR > 60.00 01/18/24 04:59
Exam: unchanged
--- NOTE | 2024-01-18 12:42 | W.PN.ID1 ---
Date of Service
Date of Service: January 18, 2024
Today's Communication
Continue Bactrim.
Follow K+, BUN, Cr.
Assessment / Plan
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
# Neutropenia resolved after TBO-filgrastim; s/p BM bx 01/15/24
- Treating probable PJP PNA (risk factor - prolonged high dose steroid)
- s/p bronch/BAL 01/08. Cx usual resp torri. + yeast which is not significant
BAL path: silver stain negative for pneumocystis organisms
-s/p 9 days Vancomycin/Zosyn
- BAL silver stain for PJP has low sensitivity (80's) in non-HIV immunosuppressed host.
- Favor continuing empiric PJP tx as patient is clinically improved now off oxygen requirement.
- Continue Bactrim DS 2 tabs tid x 21 through 01/29/24 followed by suppressive Bactrim DS 1 tab daily while on prednisone 20mg or higher per day.
Low potassium diet while on high dose Bactrim
- Follow K+, BUN, Cr while on high dose Bactrim. Pt gets weekly lab outpatient.
- Weaning prednisone as per Hem/Onc, currently at 30mg/d
- Bone marrow bx result pending
#Additional Past Medical History:
Hypertension
Recurrent left pleural effusion
SVT
Hypothyroidism
Chronic SIADH
CVA
BP
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
Bullous pemphigoid
Fatty liver
Diverticulosis
Chronic lower extremity edema
Vertebral fracture
Chief Complaint
-: Pneumonia
Subjective / Review of Systems
No complaints. Waiting for blood transfusion.
Vital Signs / Physical Exam
Vital Signs
Vital Signs
Temp Pulse Resp BP Pulse Ox
97.8 F 82 18 107/68 100
01/18/24 07:37 01/18/24 07:37 01/18/24 07:37 01/18/24 07:37 01/18/24 07:50
Physical Exam
Constitutional: No Acute Distress
Pulmonary: Clear
Gastrointestinal: Soft, Non Tender and Non Distended
Objective Data
Lab Data
Lab Results
01/17/24 07:37
01/18/24 04:59
Estimated Creat Clear 51 ml/min 01/18/24 04:59
Lactic Acid Cancelled 01/02/24 01:28
Total Bilirubin 1.3 mg/dl (0.2-1.3) 01/14/24 06:22
AST 27 U/L (17-59) 01/08/24 05:42
ALT 32 U/L (0-50) 01/08/24 05:42
Alkaline Phosphatase 81 U/L (38-126) 01/08/24 05:42
C-Reactive Protein 28.50 mg/L (0.0-10.00) H 01/09/24 06:11
Most recent labs reviewed.
Micro Results:
01/09/24 10:38 Fungal Culture - Final
Bronchoalveolar Lavage Marcella albicans
01/09/24 10:38 Acid Fast Bacilli Smear - Preliminary
Bronchoalveolar Lavage Acid Fast Bacilli Culture - Preliminary
Respiratory Virus Culture - Preliminary
01/09/24 10:37 Specimen Source - Final
Bronchoalveolar Lavage Legionella pneumophila (Direct FA) - Final
Legionella Culture - Preliminary
01/09/24 10:38 Respiratory Culture - Final
Bronch Right Middle Lobe Usual Respiratory Torri
Gram Stain - Final
01/01/24 16:02 Blood Culture - Final
Blood/Venous No Growth - Final Report
01/01/24 14:51 Blood Culture - Final
Blood/Venous No Growth - Final Report
01/02/24 09:15 Nasal Screen MRSA (PCR) - Final
Nose Staph aureus MRSA
01/01/24 17:25 Legionella Urinary Antigen - Final
Urine Negative for Legionella pneumophila Serogroup 1 antigen.
A negative result does not rule out the possiblity of
Legionella infection due to other serogroups or species of
Legionella. Clinical correlation is recommended.
Streptococcus pneumoniae Antigen (M - Final
Negative for Streptococcus pneumoniae antigen.
A negative result does not exclude infection with
Streptococcus pneumoniae. Clinical correlation is
recommended.
01/01/24 14:51 Influenza Types A & B (ORLY) - Final
Nasal Swab Negative for Influenza A & B, NAAT
Negative results must be combined with clinical observations
and patient history.
Nucleic Acid Amplification test (NAAT)performed on the
[employer] platform.
01/15/24 CXR: Patchy foci of airspace consolidation bilaterally, most suggestive of pneumonia. Improved aeration compared to prior chest x-ray dated 01/09/2024
01/09/24 CXR: Persistent bilateral pulmonary parenchymal process. There appears to be slightly improved aeration in the upper lobes. Slightly increased subtle opacity in the right lower lobe.
01/06/[address]: Widespread bilateral predominantly central groundglass opacities new in the interval since prior study. Findings are nonspecific and may be inflammatory/infectious or represent pulmonary edema. New tiny right pleural effusion and
tiny left pleural effusion significantly decreased. Old granulomatous disease as noted by calcified left hilar lymph nodes and small calcified left lower lobe pulmonary nodule again seen.
01/01/24 CXR: There is moderate diffuse coarsening of the interstitial markings throughout both lungs which I favor reflects interstitial pneumonia rather than pulmonary edema though correlation with the patient's BNP is recommended.
[2024-01-18 15:33] VITALS: BP 106/64
[2024-01-18] MEDS: LIPITOR 40 MG PO (16:47)
--- NOTE | 2024-01-18 17:43 | PTCARENOTE ---
Assumed care of pt from previous nurse. Pt denies pain. pt awaiting a unit of blood from [facility], scheduled for Sunday, labs to be drawn in a.m. Pt call henderson is within reach, pt rings john. will cont to monitor.
[2024-01-19 00:51] VITALS: BP 125/66
[2024-01-19 01:09] VITALS: BP 96/59
[2024-01-19 04:07] VITALS: BP 109/62
[2024-01-19] MEDS: SYNTHROID 75 MCG PO (05:57)
[2024-01-19 06:00] VITALS: BMI 23.8
[2024-01-19 06:52] LABS: Hematocrit 29.5 % (39.0-52.0); Hemoglobin 9.6 g/dL (13.0-18.0); Mean Corp Hgb Conc. 32.5 g/dL (33.0-37.0); Mean Corpuscular Hgb 31.3 pg (27.0-31.0); Mean Corpuscular Volume 96.1 fL (80.0-94.0); Red Blood Cell Count 3.07 10^6/uL (4.70-6.10); Red Cell Dist. Width 19.9 % (11.5-14.5); White Blood Cell Count 9.8 10^3/uL (4.8-10.8)
[2024-01-19 07:00] VITALS: BP 101/58
[2024-01-19 07:16] LABS: Blood Urea Nitrogen 41 mg/dl (9-20); Calcium 8.5 mg/dl (8.4-10.2); Carbon Dioxide 22 mmol/L (22-30); Chloride 97 mmol/L (98-107); Estimated Creatinine Clearance 55 ml/min; Glucose 61 mg/dl (70-99); Potassium 4.2 mmol/L (3.5-5.1); Sodium 127 mmol/L (135-145); eGFR > 60.00
[2024-01-19] MEDS: URE-NA 15 GRAMS PO (09:13)
[2024-01-19] MEDS: MIRALAX 17 GRAMS PO (09:14)
[2024-01-19] MEDS: TOPROL XL 25 MG PO (09:15)
[2024-01-19] MEDS: PROTONIX 40 MG PO (09:15)
[2024-01-19] MEDS: DELTASONE 30 MG PO (09:15)
[2024-01-19] MEDS: VITAMIN D3 (cholecalciferol) 25 MCG PO (09:15)
[2024-01-19] MEDS: SODIUM CHLORIDE 1 GRAM PO (09:16)
[2024-01-19] MEDS: ASPIR LOW (ENTERIC COATED) 81 MG PO (09:17)
[2024-01-19] MEDS: BACTRIM DS 800 MG/160 MG 2 TABLET PO (09:17)
[2024-01-19] MEDS: FOLVITE 1 MG PO (09:17)
[2024-01-19] MEDS: VITAMIN B-12 1000 MCG PO (09:17)
[2024-01-19] MEDS: HEPARIN 5000 UNITS SC (09:18)
[2024-01-19] MEDS: PROCTOFOAM-HC FOAM RECTAL (09:19)
--- NOTE | 2024-01-19 10:06 | W.PN.HOSP.TC ---
Today's Communication/Plan
-
dc
Assessment / Plan
Assessment / Plan
Physical Exam
General: Not in acute distress
HEENT: Normocephalic, Moist mucous membranes and Atraumatic
Respiratory: clear bilaterally.
Cardiac: S1/S2.
GI: Soft, Non Tender, Non Distended and Normal Bowel Sounds
Musculoskeletal: No Cyanosis
Skin: Warm. Dry. Ecchymoses of multiple chronicity and sizes mostly in the upper extremities related to blood
Neuro: Nonfocal/grossly intact
Psych: no agitation, calm.

Assessment/Plan
78 male came in with shortness of breath and anemia. History of hemolytic anemia but testing not compatible with hemolysis event. As of January 07, 2024 he received 2 units of blood - he needed blood from [place] due to antibodies. His hemoglobin
stable as of January 07, 2024. Prednisone is causing him significant muscle weakness/myopathy in lower extremity. Diagnosed with possible bilateral pneumonia. On IV antibiotics. CT chest done and possibly also pulmonary edema. IV Lasix was given.
Oncology/pulmonary/cardiology are seeing him.
# History of WILLEM Conner positive hemolytic anemia/ Hyperproliferative (elevated reticulocyte count) recurrent acute anemia/ History of WILLEM Conner positive hemolytic anemia/ Lymphopenia likely post Rituxan/ Hypogammaglobulinemia/ Progressive
Leukopenia
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
S/P Rituxan therapy monthly
On chronic prednisone therapy: taper prednisone as per hematology: taper Prednisone 40mg/day 01/09/24 and further taper as able on weekly bases.
s/p transfusion of 4 units total during this stay. HGB 9.6 on discharge
Granix January 11, 2024 -- WBC count improving, no need for further doses.
Neutropenic Precautions , removed.
Transfused w/ least incompatible blood from the [facility]/ help from pathology department. Help appreciated
Primary oncologist Dr Rojas.
Appreciate hematology input
# Sepsis (leukocytosis, tachycardia, borderline hypoxic, weakness) secondary to interstitial pneumonia in the setting of immunocompromise status from recent Rituxan & high dose steroid.
Acute hypoxic respiratory failure. Resolved.
Bilateral patchy infiltrates
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
Recurrent left pleural effusion - resolved
- Repeat chest x ray 01/14 showed interval improvement.
-Status post Vancomycin and Zosyn
-Differential diagnosis also includes hypersensitivity pneumonitis from Rituxan ( high likely), opportunistic infection, Pneumocystis, fungal infection, bronchiolitis obliterans organizing pneumonia (BOOP)
-Bronchoscopy performed on January 09, 2024 and BAL sent for fungus, respiratory and AFB, viral, RSV, legionella DFA, and PCP rule out (Silver stain)
-Consulted ID for prophylaxis against opportunistic infections given steroid and Rituxan use
-Continue empiric PJP treatment with Bactrim DS 2 tabs tid pending path/silver stain is negative for PJP
-Held PO potassium while on high dose Bactrim, given instructions regarding Bactrim dosing and side effects.
Appreciate ID& hematology input
# Acute on chronic heart failure with a preserved ejection fraction.
-Echo 01/01/24: EF 60-65%, mild conc LVH, stage II diastolic dysfunction, mild MR mod AR, mild TR
-Status post IV Lasix
-Continue with LAsix, he takes 20 mg BID.
-Appreciate cardiology input, recommendations appreciated
# Hypokalemia, replaced
# Hyponatremia, History of hyponatremia associated seizure
# History of recurrent hyponatremia/SIADH
Sodium stable in the low 130s to upper 120s. 127 upon discharge
No confusion
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 Continue sodium tablets and urea with the fluid restriction. S/p one dose of Tolvaptan 01/02.
#History of SVT
-Continue metoprolol
#Mild to moderate aortic regurgitation
#Essential hypertension
#Recurrent left pleural effusion
Chest x ray on admission no significant left effusion, CT showed decreasing volume.
#Hypothyroidism
-Continue levothyroxine
#Bullous pemphigoid
#History of CVA
-Continue statin & aspirin.
BPH
Diverticulosis
Chronic multilevel vertebral body endplate fractures
History of fatty liver
History of bullous pemphigoid
History of colon cancer 2019
Hypothyroidism
BPH
Diverticulosis
DNR/DNI
DVT prophylaxis�heparin
Cardiac diet
Total discharge time spent to see the patient, examine the patient on the floor, review data and lab results, discuss discharge plan with patient, and nursing staff around 67 minutes
Anticipated Discharge: Today
Subjective/Interval History
-
Date of Service: January 19, 2024
No complaints
He received blood last night, agrees to go home today
Objective Data
-
Labs:
Laboratory Results
01/19/24
05:35
WBC 9.8
Hgb 9.6 L
Hct 29.5 L
Plt Count
Sodium 127 L
Potassium 4.2
Chloride 97 L
Carbon Dioxide 22
BUN 41 H
Creatinine 1.1
Glucose 61 L
Calcium 8.5
Vital Signs:
Vital Signs
Temp Pulse Resp BP Pulse Ox
97.5 F 67 16 101/58 99
01/19/24 04:07 01/19/24 07:00 01/19/24 07:00 01/19/24 07:00 01/19/24 07:00
I&O
01/18/24 01/19/24 01/20/24
06:59 06:59 06:59
Intake Total 840 / 840 1820 / 1820
Output Total 1230 / 1230 700 / 700
Balance -390 / -390 1120 / 1120
[2024-01-19 10:16] VITALS: BP 101/55
--- NOTE | 2024-01-19 10:26 | W.PN.ONC2 ---
Today's Communication / Plan
-
- ok for discharge
- outpt labs this week and hematology follow up will be arranged.
Impression
Impression
WILLEM Conner positive hemolytic anemia
SIADH/hyponatremia
Lymphopenia likely post Rituxan
Hypogammaglobulinemia
Plan
Plan
-await pathology from bone marrow
- counts overall stable today and stable for discharge from ID standpoint. Pt to be discharged home.
- pt should use his weekly lab order to get labs this sunday to monitor hgb.
- continue prednisone 30 mg daily on discharge, will continue slow taper as outpt.
Subjective/Objective
Chief Complaint
hemolytic anemia, PNA
Subjective
pt feeling well today with new new complaints. He received additional unit of blood last night and hgb this am 9.6 g/dl. WBC normal. plts recorded as 10 due to clumping however adequate on smear.
Vital Signs:
Vital Signs
Temp Pulse Resp BP Pulse Ox
97.9 F 65 16 101/55 98
01/19/24 10:16 01/19/24 10:16 01/19/24 10:16 01/19/24 10:16 01/19/24 10:16
Lab Results:
Laboratory Data
WBC 9.8 10^3/uL (4.8-10.8) 01/19/24 05:35
Hgb 9.6 g/dL (13.0-18.0) L 01/19/24 05:35
Plt Count 10^3/uL (130-400) 01/19/24 05:35
eGFR > 60.00 01/19/24 05:35
Physical Exam
HEENT: No Jaundice
Cardiology: Normal Sinus Rhythm
Pulmonary: Clear
Extremities: No Edema
Neuro: Non Focal
Review of Systems
Review of Systems
Constitutional: Denies Fever
Respiratory: Denies Dyspnea or Cough
Gastrointestinal: Denies Nausea/Vomiting or Diarrhea
Neurological: Denies Headache
Hem/Lymphatic: Reports Easy Bruising
--- NOTE | 2024-01-19 11:05 | CM ---
Patient seen bedside.
Patient for d/c home today.
IMM completed.
Plan: home with [facility]
--- NOTE | 2024-01-19 11:16 | W.PN.ID1 ---
Date of Service
Date of Service: January 19, 2024
Today's Communication
on fluid restrction for CHF, added second bmp for next week
Assessment / Plan
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
# Neutropenia resolved after TBO-filgrastim; s/p BM bx 01/15/24
# CHF
- Treating probable PJP PNA (risk factor - prolonged high dose steroid)
- s/p bronch/BAL 01/08. Cx usual resp torri. + yeast which is not significant
BAL path: silver stain negative for Pneumocystis organisms
-s/p 9 days Vancomycin/Zosyn
- BAL silver stain for PJP has low sensitivity (80's) in non-HIV immunosuppressed host.
- Favor continuing empiric PJP tx as patient is clinically improved now off oxygen requirement.
- Continue Bactrim DS 2 tabs tid x 21 through 01/29/24 followed by suppressive Bactrim DS 1 tab daily while on prednisone 20mg or higher per day.
- Low potassium diet while on high dose Bactrim
- Follow K+, BUN, Cr while on high dose Bactrim. Pt gets weekly lab outpatient; Michelle added a second level - has CHF on fluid restriction
- Weaning prednisone as per Hem/Onc, currently at 30mg/d
- Bone marrow bx result pending
#Additional Past Medical History:
Hypertension
Recurrent left pleural effusion
SVT
Hypothyroidism
Chronic SIADH
CVA
BP
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
Bullous pemphigoid
Fatty liver
Diverticulosis
Chronic lower extremity edema
Vertebral fracture
Chief Complaint
-: Pneumonia
Subjective / Review of Systems
in good spirits
afebrile
bp stable
Cr stable
Vital Signs / Physical Exam
Vital Signs
Vital Signs
Temp Pulse Resp BP Pulse Ox
97.9 F 65 16 101/55 98
01/19/24 10:16 01/19/24 10:16 01/19/24 10:16 01/19/24 10:16 01/19/24 10:16
Physical Exam
Constitutional: No Acute Distress
Cardiovascular: Regular Rate and S1/S2; Negative Murmur or Rub
Pulmonary: Clear and Symmetric; Negative Wheezes or Rales
Gastrointestinal: Soft, Non Tender, Non Distended and Normal Bowel Sounds
Skin: Warm and Dry; Negative Rash or Jaundice
Objective Data
Lab Data
Lab Results
01/19/24 05:35
01/19/24 05:35
Estimated Creat Clear 55 ml/min 01/19/24 05:35
Lactic Acid Cancelled 01/02/24 01:28
Total Bilirubin 1.3 mg/dl (0.2-1.3) 01/14/24 06:22
AST 27 U/L (17-59) 01/08/24 05:42
ALT 32 U/L (0-50) 01/08/24 05:42
Alkaline Phosphatase 81 U/L (38-126) 01/08/24 05:42
C-Reactive Protein 28.50 mg/L (0.0-10.00) H 01/09/24 06:11
Most recent labs reviewed.
Micro Results:
01/09/24 10:37 Specimen Source - Final
Bronchoalveolar Lavage Legionella pneumophila (Direct FA) - Final
Legionella Culture - Final
01/09/24 10:38 Fungal Culture - Final
Bronchoalveolar Lavage Marcella albicans
01/09/24 10:38 Acid Fast Bacilli Smear - Preliminary
Bronchoalveolar Lavage Acid Fast Bacilli Culture - Preliminary
Respiratory Virus Culture - Preliminary
01/09/24 10:38 Respiratory Culture - Final
Bronch Right Middle Lobe Usual Respiratory Torri
Gram Stain - Final
01/01/24 16:02 Blood Culture - Final
Blood/Venous No Growth - Final Report
01/01/24 14:51 Blood Culture - Final
Blood/Venous No Growth - Final Report
01/02/24 09:15 Nasal Screen MRSA (PCR) - Final
Nose Staph aureus MRSA
01/01/24 17:25 Legionella Urinary Antigen - Final
Urine Negative for Legionella pneumophila Serogroup 1 antigen.
A negative result does not rule out the possiblity of
Legionella infection due to other serogroups or species of
Legionella. Clinical correlation is recommended.
Streptococcus pneumoniae Antigen (M - Final
Negative for Streptococcus pneumoniae antigen.
A negative result does not exclude infection with
Streptococcus pneumoniae. Clinical correlation is
recommended.
01/01/24 14:51 Influenza Types A & B (ORLY) - Final
Nasal Swab Negative for Influenza A & B, NAAT
Negative results must be combined with clinical observations
and patient history.
Nucleic Acid Amplification test (NAAT)performed on the
[employer] platform.
01/15/24 CXR: Patchy foci of airspace consolidation bilaterally, most suggestive of pneumonia. Improved aeration compared to prior chest x-ray dated 01/09/2024
01/09/24 CXR: Persistent bilateral pulmonary parenchymal process. There appears to be slightly improved aeration in the upper lobes. Slightly increased subtle opacity in the right lower lobe.
01/06/[address]: Widespread bilateral predominantly central groundglass opacities new in the interval since prior study. Findings are nonspecific and may be inflammatory/infectious or represent pulmonary edema. New tiny right pleural effusion and
tiny left pleural effusion significantly decreased. Old granulomatous disease as noted by calcified left hilar lymph nodes and small calcified left lower lobe pulmonary nodule again seen.
01/01/24 CXR: There is moderate diffuse coarsening of the interstitial markings throughout both lungs which I favor reflects interstitial pneumonia rather than pulmonary edema though correlation with the patient's BNP is recommended.
--- NOTE | 2024-01-19 12:50 | W.DCSUMMARY ---
Discharge Summary
Discharge Data
Date of Admission: 01/01/24
Date of Discharge: 01/19/24
-
Pending Results: No
Hospital Course
78 years old male presented to the emergency room with lethargy, weakness, high heart rate, low blood pressure, increasing leg swelling, shortness of breath and coughing. Patient met the criteria of sepsis/ systemic inflammatory response on
admission with leukocytosis, tachycardia, borderline hypoxia and weakness. Chest radiography showed patchy bilateral infiltrates. Patient was diagnosed with acute hypoxic respiratory insufficiency with oxygen around 91% on room air then later he
started to have hypoxia and needed nasal oxygen. He had mildly elevated procalcitonin at 0.56. Cardiac proBNP was 2100 and lactic acid around 4.9. He had negative COVID and influenza screen. Patient had history of prednisone therapy. He had
history of hemolytic anemia and was taking prednisone and finished Rituxan. He was following with oncology. He was noted to have increasing lower extremity edema. Echocardiogram showed left ventricular ejection fraction of 60 to 65%, mild left
ventricular hypertrophy, stage II diastolic dysfunction, mild mitral regurgitation, moderate aortic regurgitation, mild tricuspid regurgitation. Patient was initially given intravenous fluid and that help initially. His lactic acidosis resolved.
His blood pressure stabilized. Respiratory distress felt to be multifactorial with differential diagnosis included infection/heart failure/Rituxan induced pneumonitis.
Patient was started on Lasix therapy with monitoring of basic metabolic panel, heart rate and blood pressure, he was evaluated by pulmonary and cardiology doctors. Chest scan showed bilateral ground-glass opacities, possible pulmonary edema. He
was maintained on diuretic treatment and empiric antibiotics. Blood culture did not show any growth. Patient was followed by infectious diseases doctor.
Patient was noted to have anemia. He had elevated reticulocyte count with normal haptoglobin. Possibility of hemolysis was low. Was followed by hematology. Patient required transfusion based on recommendations from hematology doctor to treat his
anemia. Patient required blood from [place] to transfuse the least incompatible blood. Patient was given total of 4 units of red blood cells during this hospitalization. Each unit required 3 to 4 days to be available to the patient for
transfusion. Neutrophil count went down and patient was given growth stimulating factor. Hematology doctor ordered bone marrow biopsy and that was done on 01/15/2024.
Regarding his bilateral pulmonary infiltrates. The concern also included opportunistic infection. Patient had bronchoscopy and bronchial cytology did not show malignant cells, silver stain was negative for pneumocystis organisms. Infectious
disease doctor recommended Bactrim treatment for presumed infection. Potassium, creatinine and BUN were monitored. Prednisone dose was continued to be tapered on weekly basis. Patient tolerated treatments well. He was not hypoxic anymore and
oxygen saturation became normal on room air. Overall weakness improved. Patient and the wanted home health services. Patient was followed by physical therapy also. Hematology doctor recommended outpatient follow-up and to slowly taper
prednisone. Patient will be doing blood work for monitoring while on Bactrim. Discharge instructions and recommendations were discussed with the patient and his , they verbalized understanding.
Discharge Plan
-
Patient Disposition: Home with Home Care
Discharge Diagnosis/Procedures: WILLEM Conner positive hemolytic anemia, on tapering prednisone ( currently on 30 mg until 01/28 then you can go on 20 mg unless advised otherwise by your oncologist.
SIADH/hyponatremia
ANC improved with G-CSF support
Lymphopenia likely post Rituxan
Hypogammaglobulinemia
Anemia requiring blood transfusion , follow with your oncologist.
Diet: As tolerated
Blood Work: BMP twice a week until done with Bactrim
Activity Restrictions/Additional Instructions:
1. Continue Bactrim DS 2 tabs three times a day through 01/29/24.
2. Avoid high potassium food products while on high dose Bactrim (trimethoprim/sulfamethoxazole).
3. If you remain on prednisone at 20mg or higher a day after 01/29/24, you need to be on Bactrim DS 1 tab a day. If you need prescription, can call Dr. Daiana Sims's office
[phone].
Referrals:
Nasra Paulino MD [Active] - in one week
Mykel Serrato MD [Active] - in four to six weeks
Daiana Sims MD [Active] - ( as needed)
Santiago Garvin DO [Family Provider] - in one to two weeks
Prescriptions:
New
sulfamethoxazole-trimethoprim 800-160 mg Tablet
2 tab PO TID Qty: 60 0RF
Continued
levothyroxine 75 MCG tablet
75 mcg PO DAILY AT 0700
folic acid 1 mg tablet
1 mg PO DAILY
sodium chloride 1,000 mg Tablet,Soluble
1,000 mg PO BID
polyethylene glycol 3350 [HealthyLax] 17 gram powder in packet
17 g PO DAILY
cholecalciferol (vitamin D3) 25 mcg (1,000 unit) tablet
25 mcg PO DAILY
atorvastatin 40 mg Tablet
40 mg PO QPM Qty: 30 0RF
cyanocobalamin (vitamin B-12) 1,000 mcg Tablet
1,000 mcg PO DAILY Qty: 30 0RF
aspirin 81 mg Tablet,Delayed Release (Dr/Ec)
81 mg PO DAILY Qty: 30 0RF
pantoprazole 40 mg Tablet,Delayed Release (Dr/Ec)
40 mg PO DAILY Qty: 30 0RF
urea 15 gram powder in packet
1 packet PO BID
metoprolol succinate 25 mg tablet extended release 24 hr
25 mg PO DAILY Qty: 0 0RF
Changed
prednisone 20 mg Tablet
30 mg PO DAILY Qty: 0 0RF
Rx Instructions:
Taper down to 20 mg on 01/28 unless advised otherwise by your oncologist
furosemide 20 mg tablet
20 mg PO DAILY Qty: 0 0RF
Discharge Orders:
Discharge Patient (As Directed); Ordered 01/19/24
Ordered By: Todd Watson
Discharge Date and Time
Discharge Date/Time: 01/19/24 11:31
Print Language: POLISH
== END 2024-01-19 11:31 | disposition home health service (06) | DRG 871 ==
LOC: 4 WEST ACU 17:35
PROVIDERS: Hospitalist; Internal Medicine; Internal Medicine Critical Care Medicine; Internal Medicine Hematology & Oncology; Internal Medicine Infectious Disease; Nurse Practitioner Family; Radiology Diagnostic Radiology; ADMITTING PHYSICIAN Hospitalist; ATTENDING PHYSICIAN Internal Medicine; CONSULT PHYSICIAN Internal Medicine Cardiovascular Disease; CONSULT PHYSICIAN Internal Medicine Hematology & Oncology; CONSULT PHYSICIAN Student in an Organized Health Care Education/Training Program; EMERGENCY PHYSICIAN Emergency Medicine; FAMILY PHYSICIAN Internal Medicine; OTHER PHYSICIAN Internal Medicine Critical Care Medicine
PROC: 30233N1 Transfusion of Nonautologous Red Blood Cells into Peripheral Vein, Percutaneous Approach (ICD-10-PCS; 2024-01-03)
PROC: 0B9D8ZX Drainage of Right Middle Lung Lobe, Via Natural or Artificial Opening Endoscopic, Diagnostic (ICD-10-PCS; 2024-01-09)
PROC: 0B9H8ZX Drainage of Lung Lingula, Via Natural or Artificial Opening Endoscopic, Diagnostic (ICD-10-PCS; 2024-01-09)
PROC: 079T3ZX Drainage of Bone Marrow, Percutaneous Approach, Diagnostic (ICD-10-PCS; 2024-01-15)
DX: A41.89 Other specified sepsis (principal); I50.33 Acute on chronic diastolic (congestive) heart failure; D59.11 Warm autoimmune hemolytic anemia; J84.9 Interstitial pulmonary disease, unspecified; E87.20 Acidosis, unspecified; D84.9 Immunodeficiency, unspecified; E22.2 Syndrome of inappropriate secretion of antidiuretic hormone; D80.1 Nonfamilial hypogammaglobulinemia; E87.6 Hypokalemia; I11.0 Hypertensive heart disease with heart failure
CPT/HCPCS: 88305; 88311; 88312; 36600; 38222; 71045; 71046; 71250; 77012; 80048; 80053; 80076; 80202; 81003; 82247; 82248; 82565; 82728; 82805; 83010; 83070; 83540; 83550; 83605; 83615; 83735; 83880; 83935; 84145; 84300; 84484; 84520; 85025; 85027; 85045; 86140; 86850; 86870; 86900; 86901; 86920; 86922; 87015; 87040; 87070; 87081; 87102; 87106; 87116; 87205; 87252; 87278; 87449; 87502; 87641; 87811; 87899; 88112; 88313; 88341; 88342; 89051; 93005; 93306; 96361; 96365; 96366; 96375; 97116; 97162; 97166; 97530; 97535; 99291; J1447; P9016

== ENCOUNTER 2024-01-21 19:26 | Inpatient (IN) | payer MEDICARE, BC, SELFPAY ==
[2024-01-21] VITALS (26 sets, daily range): BP systolic 81–101; BP diastolic 56–72; BMI 24.6
[2024-01-21 13:44] LABS: % Basophils 0.2 % (0-2); % Eosinophils 0.1 % (0-6); % Lymphocytes 0.6 % (20.5-51.1); % Monocytes 0.9 % (1.7-9.3); % Neutrophils 92.2 % (42.2-75.2); Absolute Immature Granulocytes 0.9 10^3/uL (0-0.05); Absolute Lymphocytes 0.1 10^3/uL (1.2-3.4); Absolute Monocytes 0.1 10^3/uL (0.1-0.6); Absolute Neutrophils 13.3 10^3/uL (1.4-6.5); Hematocrit 27.5 % (39.0-52.0); Hemoglobin 9.3 g/dL (13.0-18.0); Mean Corp Hgb Conc. 33.8 g/dL (33.0-37.0); Mean Corpuscular Hgb 31.7 pg (27.0-31.0); Mean Corpuscular Volume 93.9 fL (80.0-94.0); Mean Platelet Volume 10.9 fL (7.4-10.4); Nucleated Red Blood Cells % 0.1 % (-); Platelet Count 105 10^3/uL (130-400); Red Blood Cell Count 2.93 10^6/uL (4.70-6.10); Red Cell Dist. Width 20.4 % (11.5-14.5); White Blood Cell Count 14.4 10^3/uL (4.8-10.8)
[2024-01-21 13:54] LABS: ALT (SGPT) 32 U/L (0-50); AST (SGOT) 26 U/L (17-59); Alkaline Phosphatase 109 U/L (38-126); Blood Urea Nitrogen 48 mg/dl (9-20); Calcium 8.3 mg/dl (8.4-10.2); Carbon Dioxide 20 mmol/L (22-30); Estimated Creatinine Clearance 61 ml/min; Glucose 108 mg/dl (70-99); Total Bilirubin 1.3 mg/dl (0.2-1.3); eGFR > 60.00
[2024-01-21] MEDS: NSS 500 IV (14:05)
[2024-01-21 14:06] LABS: Chloride 93 mmol/L (98-107); Potassium 4.5 mmol/L (3.5-5.1); Sodium 121 mmol/L (135-145)
[2024-01-21 14:39] LABS: Lactic Acid 1.5 mmol/L (0.7-2.0)
[2024-01-21 14:54] LABS: NT-proBNP 2300 pg/ml
[2024-01-21] MEDS: ZOSYN 50 IV (16:18)
[2024-01-21 16:29] LABS: Urine Albumin Trace (Neg - Trace); Urine Bilirubin Negative (Negative); Urine Character Clear (Clear); Urine Color Yellow; Urine Glucose Negative (Negative); Urine Ketone Negative (Negative); Urine Leukocyte Negative (Negative); Urine Nitrite Negative (Negative); Urine Occult Blood Negative (Negative); Urine Specific Gravity 1.015 (<1.030); Urine Urobilinogen Negative (Neg - 1+)
[2024-01-21 16:45] LABS: Urine Sodium 28 mmol/L (30-90)
--- NOTE | 2024-01-21 16:57 | ED.GENMED ---
History of Present Illness
General
Chief Complaint: Blood Pressure Problem
Source: patient and family
Time Seen by Provider: 01/21/24 12:58
Travel History
Have you had any contact with someone who has COVID-19?: No
Do you have any symptoms of coronavirus? Fever > 100 degrees, chills, cough, shortness of breath, sore throat, loss of taste or smell, muscle aches, or headache?: No
History of Present Illness
History of Present Illness:
This is a 78-year-old male with a history of hemolytic anemia, hyponatremia, SVT, interstitial pneumonitis, pneumonia who presents with weakness and shortness of breath with exertion. He recently held his blood pressure medications metoprolol and
Lasix due to low blood pressure. Symptoms came on relatively quickly as he had been doing quite well the first day or 2 after his discharge. Patient my evaluation just feels weak. He also Bactrim now is a rash and family attributes the rash to
the Bactrim. No noted fevers. No vomiting. No diarrhea. No chest pain.
Past History
Past History
ED Past Medical History: HTN, Seizures (Pt had ONE seizure years ago and found to be significantly hyponatremic. Takes Na tablets daily and is water restricted since.), Hypothyroidism and Other (bullous pemphigous. Hemolytic anemia)
ED Past Surgical History: Tonsilectomy
Social History
Tobacco: Former smoker
Alcohol: Occasional
Drug: None
Personal:
Living: with family
Employment: Retired
Family History
Family History: Other (Noncontributory)
Phy Exam
Physical Exam
Physical Exam:
CONSTITUTIONAL Patient alert and oriented to person, place and time. Vital signs reviewed. Hypertensive
HEAD atraumatic, normocephalic.
EYES eyelids normal to inspection, Extraocular muscles intact, Conjunctiva normal, Sclera normal.
NECK normal range of motion, Trachea midline, no jugular venous distention.
RESPIRATORY CHEST No respiratory distress noted, Chest expansion equal, mildly tachypneic, diminished at bases, faint scattered crackles
CARDIOVASCULAR regular and tachycardic, Heart sounds normal.
ABDOMEN abdomen nontender, Bowel sounds normal. No distention.
BACK normal inspection, no obvious deformities
UPPER EXTREMITY range of motion normal, Motor strength normal, no cyanosis, no edema.
LOWER EXTREMITY range of motion normal, Motor strength normal, no cyanosis, no edema.
NEURO Speech normal, No focal motor deficits, [place] coma scale 15, Memory normal, Cranial Nerves intact to screening exam.
SKIN skin warm, dry, and normal in color.
PSYCHIATRIC patient oriented to person place and time, Normal affect.
Course
Orders/Labs/Results
Orders:
Orders
01/21/24 Breakfast
Sodium, 2 Gram
At Your Request: Full Participation
Fluid Restriction: 1200 mL/day (40 oz)
01/21/24 11:50
EKG [Electrocardiogram (*1)] Urgent
Reason for Study: Tachycardia
EKG- Treatment ONCE
01/21/24 13:33
Add On- LAB Urgent
Tests Added?: procalcitonin
01/21/24 13:34
Complete Blood Count/With Diff Urgent
Comprehensive Metabolic Panel Urgent
NT-proBNP Urgent
Comment: BNP ADDED ON BY FLOOR 2:15PM 12-22-23
Troponin I Urgent
01/21/24 13:53
0.9% Sodium Chloride 500 ml [Nss] 500 ml IV BOLUS
01/21/24 14:03
Lactic Acid Q4H
Comment: CANCEL 2nd LACTIC ACID IF 1st LACTIC ACID IS LESS THAN 2
Procalcitonin Routine
Blood Culture Q30M
TERRELL Source: Blood/Venous
Specimen Description:
01/21/24 14:10
CT Chest Pe Study Urgent
Comment:
Reason For Exam: sob, hypotension
01/21/24 14:15
Add On- LAB Urgent
Tests Added?: bnp
Blood Culture Q30M
TERRELL Source: Blood/Venous
Specimen Description:
01/21/24 15:26
Piperacillin/Tazo 3.375 Gram [Zosyn] 3.375 gram in 50 ml IV NOW
Vancomycin 1 Gram/200 ml [Vancocin] 1 gram in 200 ml IV NOW
01/21/24 16:17
Urinalysis Reflex To Culture Urgent
Date Specimen was Collected: 01/21/24
Time Specimen was Collected: 16:08
Urine Sodium Urgent
Date Specimen was Collected: 01/21/24
Time Specimen was Collected: 16:09
01/21/24 17:03
Dexamethasone Sod Phosphate [Decadron] 10 mg IV NOW STA
01/21/24 18:01
Admit/Transfer Patient As Directed
Co-Sign Provider:
Level of Care: Inpatient admission
Assign to:: IMU- Intermediate Care
Physician / Group: Suzanne
Diagnosis: Hyponatremia, Hypotension, Rash
Reason for Hospitalization: 3% sodium, stress dose steroids
Expected length of stay greater than two midnights?: Yes
ELOS- Estimated Length of Stay in days: 3
I certify the patient meets the requirements for IP care: Yes
01/21/24 18:09
Code Status As Directed
Resuscitation Status: Do not resuscitate
Reached after discussion with pt or family/Healthcare POA: Yes
DNR Bracelet Application ONCE
01/21/24 18:50
ONCOLOGY CONSULT Urgent
Consulting Provider: Nasra Paulino
Was physician already notified: Yes
01/21/24 19:00
3% Sodium Chloride 250 ml [Sodium Chloride 3%] 250 ml IV ONCE
01/21/24 19:30
Troponin I Q6H
01/21/24 20:42
Acetaminophen [Tylenol] 650 mg PO Q4HPRN PRN
Diphenhydramine [Benadryl] 25 mg PO Q4HPRN PRN
Urea (Non-Form) [Ure-Na] 1 grams PO BID
01/21/24 20:42
HEMATOLOGY CONSULT Routine
Consulting Provider: Nils Frye
Was physician already notified: Yes
INFECTIOUS DISEASE CONSULT Routine
Consulting Provider: Daiana Sims
Was physician already notified: Yes
NEPHROLOGY CONSULT Routine
Consulting Provider: Dawson Epps
Was physician already notified: Yes
Activity As Directed
Activity Level: Out of Bed- Chair
I&O [Intake/ Output] As Directed
Frequency: q12h
Pneumatic Compression Sleeves As Directed
Type: Knee high
Vital Signs As Directed
Frequency: Per unit guidelines
Weight As Directed
Frequency: Daily
Ot Eval And Treat Routine
Pt Eval And Treat Routine
Activity Level: Out of Bed-Early Mobility
With Assistance
DX Deep Vein Thrombosis Video Routine
01/21/24 22:00
BMP [Basic Metabolic Panel] Urgent
01/22/24 01:30
Troponin I Q6H
01/22/24 06:00
Basic Metabolic Panel IN AM
Complete Blood Count/With Diff IN AM
Magnesium IN AM
Levothyroxine [Synthroid] 75 mcg PO DAILY@0600
01/22/24 08:00
Aspirin Low Dose EC [Aspir Low (Enteric Coated)] 81 mg PO DAILY
Hydrocortisone Sod Succinate [Solu-Cortef] 50 mg IV Q8
Pantoprazole [Protonix] 40 mg PO DAILY
Polyethylene Glycol Powder [Miralax] 17 grams PO DAILY
Sodium Chloride 1 gram PO BID
01/22/24 18:00
Atorvastatin [Lipitor] 40 mg PO QPM
Abnormal Lab Results
01/21/24 01/21/24 01/21/24
13:34 14:03 16:17
WBC 14.4 H 10^3/uL
(4.8-10.8)
RBC 2.93 L 10^6/uL
(4.70-6.10)
Hgb 9.3 L g/dL
(13.0-18.0)
Hct 27.5 L %
(39.0-52.0)
MCH 31.7 H pg
(27.0-31.0)
RDW 20.4 H %
(11.5-14.5)
Plt Count 105 L D 10^3/uL
(130-400)
MPV 10.9 H fL
(7.4-10.4)
Abs Immat Gran (auto) 0.9 H 10^3/uL
(0-0.05)
Absolute Neuts (auto) 13.3 H 10^3/uL
(1.4-6.5)
Absolute Lymphs (auto) 0.1 L 10^3/uL
(1.2-3.4)
Immature Gran % 6.0 H %
(0-0.5)
Neutrophils % 92.2 H %
(42.2-75.2)
Lymphocytes % 0.6 L %
(20.5-51.1)
Monocytes % 0.9 L %
(1.7-9.3)
Sodium 121 L mmol/L
(135-145)
Chloride 93 L mmol/L
(98-107)
Carbon Dioxide 20 L mmol/L
(22-30)
BUN 48 H mg/dl
(9-20)
Glucose 108 H mg/dl
(70-99)
Calcium 8.3 L mg/dl
(8.4-10.2)
Troponin I 0.170 H* ng/ml
Total Protein 5.0 L g/dl
(6.3-8.2)
Albumin 3.0 L g/dl
(3.5-5.0)
Procalcitonin 0.70 H ng/ml
(0.0-0.25)
Urine Sodium 28 L mmol/L
(30-90)
01/21/24 13:34
01/21/24 13:34
Vital Signs
Initial and Last Documented VS:
Initial Vital Signs
Temp Pulse Resp BP Pulse Ox
97.7 F 119 24 97/64 95
01/21/24 11:46 01/21/24 11:46 01/21/24 11:46 01/21/24 11:46 01/21/24 11:46
Last Documented Vital Signs
Temp Pulse Resp BP Pulse Ox
97.7 F 92 25 86/62 97
01/21/24 20:41 01/21/24 20:15 01/21/24 20:15 01/21/24 20:00 01/21/24 19:45
MDM/Problems Addressed
MDM/Problems Addressed:
Relative hypotension, possible CHF, rule out sepsis, rash, suspected medication reaction, possible adrenal insufficiency, hyponatremia
*Radiology
Radiology exam reviewed: radiology read reviewed
*Pulse Oximetry
Patient hypoxic: no
*EKG
Interpreted by ED Provider?: Yes
Interpretation: abnormal
Rate: tachycardiac
Rhythm: sinus
Assonet: normal axis
Ischemia: non-specific ST changes
*Stiff Leg Operator Interpretation
Rate: tachycardiac
Interpretation: abnormal
Rhythm: sinus
*Critical Care Note
Total Time (30-74mins, 75-104mins- exclusive of procedures): 40 minutes
Data Reviewed
Review of Other/Old Records Reveals: Discharge Summary
Source: patient and family
Prescriptions/Medications Considered But Not Given:
Consider heparin but PE study negative
Patient Management
Discussion with other providers: Hospitalist, Full Time Babysitter (Case discussed with oncology) and Other (Case discussed with nephrology)
Escalation/DeEscalation of care consider admission/obs:
70-year-old male presents with hypotension. Question adrenal insufficiency. Patient seen by nephrology. Hyponatremic. Initiated 3% after discussion with nephrology. In addition given Decadron.
ED Attending Note
-
Portions of this chart may have been created with voice recognition software.� Occasional wrong word or��sound alike� substitutions may have occurred due to the inherent limitations of voice recognition software.
Discharge Plan
Departure
Patient Disposition: Admit
Date of Disposition: 01/21/24
Time of Disposition: 16:57
Admit to: IMU
Presentation/result/management discussed w/ accepting MD/DO: Hospitalist
Discharge Problem:
Acute hypotension, Acute hyponatremia, Congestive heart failure, Adverse effect of antithrombotic medication
Interventions
Interventions:
*Risk Screen - Suicide Last Done: 01/21/24 11:45
*General Assessment Last Done: 01/21/24 11:45
*Neglect/Abuse Screening Last Done: 01/21/24 11:45
ED- Fall Risk Assessment Last Done: 01/21/24 20:37
*ED COVID-19 Vaccine History Last Done: 01/21/24 11:45
*Nursing Disposition Last Done: 01/21/24 20:37
ED- Cardiac Assessment Last Done: 01/21/24 11:48
ED- Neurological Assessment Last Done: 01/21/24 11:48
ED- Pulmonary Assessment Last Done: 01/21/24 11:48
Discharge Date and Time
Discharge Date/Time: 01/21/24 20:37
--- NOTE | 2024-01-21 17:10 | W.CON.NEPH ---
Medical History
-
Chief Complaint: hyponatremia
History of Present Illness:
Mr. Cui is a 78YO gentleman who sees Dr. Curiel as an outpatient though not consistently for hyponatremia. He has previously been treated with salt tablets as well as urea packet and loop diuretic therapy. His sodium level tends to run
around 130 on average. He also has hemolytic anemia treated with transfusions and followed by hematology. He does have hypertension on monotherapy regimen with metoprolol. He was recently admitted with shortness of breath and anemia. He was
transfused several units of packed red blood cells. He was also found at that time to have bilateral pulmonary infiltrates. He had a bronchoscopy performed which was unrevealing. It was felt not to be infectious and antibiotics were discontinued.
He was continued on treatment for PJP and was subsequently discharged. His sodium level at that time was around 127 or 128. We were not involved in his care at the last hospitalization. He returns today because of hypotension issues and his
sodium level was noted to be 121. We are asked to assist in management of his hyponatremia. He also reported to have development of a rash over the last week now diffuse. Started his back inspectors belly and onto his extremities and face. He
began itching yesterday and they used hydrocortisone cream which had helped.
Past Medical History
1. Hypertension.
2. Hyponatremia.
3. Hypothyroidism.
4. Bullous pemphigoid.
5. Warm autoimmune hemolytic anemia.
6. History of colon cancer and gout.
7. Bilateral pulmonary infiltrate
Past Surgical History: Other
Social History
Tobacco: Non-Smoker
Alcohol: None
Drug: None
Personal:
Living: With Family
Family History
No CKD
Allergies / Home Medications
Allergy/AdvReac Type Severity Reaction Status Date / Time
amlodipine Allergy pt states Verified 01/01/24 14:19
it caused
his sodium
level to
be low
�Medication �Instructions �Recorded �Confirmed �Type
levothyroxine 75 mcg tablet 75 mcg PO DAILY@0700 Thyroid 12/03/18 01/21/24 History
folic acid 1 mg tablet 1 mg PO DAILY Supplement 09/26/23 01/21/24 History
polyethylene glycol 3350 17 gram 17 g PO DAILY constipation 10/17/23 01/21/24 History
oral powder packet (HealthyLax)
sodium chloride 1,000 mg soluble 1,000 mg PO BID Electrolyte 10/17/23 01/21/24 History
tablet Repletion
cholecalciferol (vitamin D3) 25 25 mcg PO DAILY Supplement 10/30/23 01/21/24 History
mcg (1,000 unit) tablet
aspirin 81 mg tablet,delayed 81 mg PO DAILY Blood clot 11/03/23 01/21/24 Rx
release prevention/tx #30 tabs
atorvastatin 40 mg tablet 40 mg PO QPM High cholesterol #30 11/03/23 01/21/24 Rx
tabs
cyanocobalamin (vitamin B-12) 1,000 mcg PO DAILY Supplement #30 11/03/23 01/21/24 Rx
1,000 mcg tablet tabs
pantoprazole 40 mg tablet,delayed 40 mg PO DAILY Gastrointestinal 11/03/23 01/21/24 Rx
release issue #30 tabs
urea 15 gram oral powder packet 1 packet PO BID Electrolyte 01/01/24 01/21/24 History
Repletion
furosemide 20 mg tablet 20 mg PO .SEE BELOW 01/21/24 01/21/24 History
hyponatremia
metoprolol succinate 25 mg 25 mg PO .SEE BELOW Heart 01/21/24 01/21/24 History
tablet,extended release 24 hr disease/condition
prednisone 20 mg tablet 20 mg PO DAILY Anti-Inflammatory 01/21/24 01/21/24 History
prednisone 5 mg tablet 10 mg PO DAILY 01/21/24 01/21/24 History
sulfamethoxazole 800 2 tab PO .SEE BELOW 01/21/24 01/21/24 History
mg-trimethoprim 160 mg tablet
Review of Systems
-
No chest pain. No shortness of breath. No fever. Rash as above. Itching as above. No change in oral intake. No issues with urination. Progressive weakness in the legs.
All other systems: Negative unless noted
Physical Exam
Vital Signs
Vital Signs
Temp Pulse Resp BP Pulse Ox
97.7 F 105 27 81/65 93
01/21/24 11:46 01/21/24 16:15 01/21/24 16:15 01/21/24 16:15 01/21/24 16:00
Lab Results
WBC 14.4 10^3/uL (4.8-10.8) H 01/21/24 13:34
RBC 2.93 10^6/uL (4.70-6.10) L 01/21/24 13:34
Hgb 9.3 g/dL (13.0-18.0) L 01/21/24 13:34
Hct 27.5 % (39.0-52.0) L 01/21/24 13:34
Plt Count 105 10^3/uL (130-400) L D 01/21/24 13:34
Sodium 121 mmol/L (135-145) L 01/21/24 13:34
Potassium 4.5 mmol/L (3.5-5.1) 01/21/24 13:34
Chloride 93 mmol/L (98-107) L 01/21/24 13:34
Carbon Dioxide 20 mmol/L (22-30) L 01/21/24 13:34
BUN 48 mg/dl (9-20) H 01/21/24 13:34
Creatinine 1.0 mg/dL (0.7-1.3) 01/21/24 13:34
eGFR > 60.00 01/21/24 13:34
Glucose 108 mg/dl (70-99) H 01/21/24 13:34
Calcium 8.3 mg/dl (8.4-10.2) L 01/21/24 13:34
Xoo-D-Rpuotljfknk Pept 2300 pg/ml 01/21/24 13:34
Albumin 3.0 g/dl (3.5-5.0) L 01/21/24 13:34
Physical Exam
Patient is awake alert oriented and in no distress. Mood and affect were pleasant, insight and judgment were good. Pupils are equal round and reactive to light, extraocular movements are intact, sclera were anicteric. Hearing was normal, ears and
nose are intact. Oropharynx was clear. Neck was supple with trachea midline and no thyromegaly. Heart was regular rate and rhythm without rubs. Lower extremities without edema. Lungs were clear to auscultation bilaterally and with normal
excursion. Abdomen was soft, nontender, with normal active bowel sounds, and no hepatosplenomegaly. Skin was with diffuse macular blanching rash and with normal turgor.
Data Reviewed
-
Radiology: Image Personally Visualized and interpreted (Chest x-ray on January 15, 2024 by my read shows cardiomegaly with bilateral patchy infiltrates)
CT Scan: Report Reviewed by me (CT chest on January 21, 2024 shows no pulmonary embolism and improvement of bilateral infiltrates)
Labs: Labs Reviewed by me (WBC 14.4, hemoglobin 9.3, platelets 105, sodium 121, potassium 4.5, chloride 93 bicarbonate 20, BUN 40, creatinine 1, troponin 0.170, urine sodium 28)
Old Records: Reviewed (On January 01, 2024 sodium 123, urine osmolality 422, urine sodium 46, on January 19, 2024 sodium 127)
Assessment/Plan
-
Assessment:
Hyponatremia acute on chronic
anemia, hemolytic
bilateral pulmoanry infiltrates
Diffuse blanching macular rash
ischemic stroke
Hypotension
hypothyrodism
Plan:
Continue salt tablets and urea
Lasix 20 mg twice daily held for hypotension now
continue with fluid restriction.
3% saline tonight.
Serial BMP
May consider Samsca tomorrow if needed
Stress dose steroids
Antibiotics for PJP
[2024-01-21] MEDS: VANCOCIN 200 IV (17:54)
--- NOTE | 2024-01-21 18:15 | HPS.HSE ---
Family Physician
-
Family Physician: Santiago Garvin
Chief Complaint
-
Weakness, Low Blood Pressure and Rash
History of Present Illness
Patient is a 78-year-old male past medical history hemolytic anemia, chronic hyponatremia, SVT, and recent hospitalization for interstitial pneumonitis with possible PJP pneumonia who presents to the emergency room for evaluation of weakness and low
blood pressure for the past 2 days. He states he was just recently discharged from on 01/19/2024 after a three week hospitalization. He notes yesterday his visiting nurse noted his blood pressure to be low and instructed him to hold his
metoprolol and Lasix. This morning he was very weak and BP was lower than yesterday (in the 80s per at bedside), which prompted them to come to the emergency department for evaluation. He is also complaining of a worsening rash. He notes he
had faint rash at time of discharge two days ago, but yesterday the rash became significantly worse. He reports rash started on the back, then spread to the chest and now faintly on the extremities. He used hydrocortisone cream last night with
some improvement in the pruritus. He denies fevers, sweats, chills, cough, abdominal pain, vomiting, diarrhea, or dysuria.
Medical History
Past Medical History
Past Medical History: Reports Other
Additional Past Medical History:
Hypothyroidism
Warm Hemolytic Anemia
Bullous Pemphigoid
Chronic Left Pleural Effusion
Chronic Hypotension
Chronic Lower Extremity Edema
Left Occipital Stroke
SVT
Past Surgical History: Reports Other
Additional Past Surgical History:
Left Thoracentesis
Tonsillectomy
Social History
Tobacco: Non-smoker
Alcohol: None
Drug: None
Personal:
Living: With Family ()
Employment: Retired
Family History
Family History: Not pertinent
Allergies / Home Medications
Allergies reflects when Allergies were last updated in [facility].
Home Medications with original date entered in [facility]
Allergy/Medication List:
Allergies
Allergy/AdvReac Type Severity Reaction Status Date / Time
amlodipine Allergy pt states Verified 01/01/24 14:19
it caused
his sodium
level to
be low
Home Medications
levothyroxine 75 mcg tablet 75 mcg PO DAILY@0700 Thyroid 12/03/18
folic acid 1 mg tablet 1 mg PO DAILY Supplement 09/26/23
polyethylene glycol 3350 17 gram oral powder packet (HealthyLax) 17 g PO DAILY constipation 10/17/23
sodium chloride 1,000 mg soluble tablet 1,000 mg PO BID Electrolyte Repletion 10/17/23
cholecalciferol (vitamin D3) 25 mcg (1,000 unit) tablet 25 mcg PO DAILY Supplement 10/30/23
aspirin 81 mg tablet,delayed release 81 mg PO DAILY Blood clot prevention/tx #30 tabs 11/03/23
atorvastatin 40 mg tablet 40 mg PO QPM High cholesterol #30 tabs 11/03/23
cyanocobalamin (vitamin B-12) 1,000 mcg tablet 1,000 mcg PO DAILY Supplement #30 tabs 11/03/23
pantoprazole 40 mg tablet,delayed release 40 mg PO DAILY Gastrointestinal issue #30 tabs 11/03/23
urea 15 gram oral powder packet 1 packet PO BID Electrolyte Repletion 01/01/24
furosemide 20 mg tablet 20 mg PO DAILY hyponatremia 01/21/24
metoprolol succinate 25 mg tablet,extended release 24 hr 25 mg PO DAILY Heart disease/condition 01/21/24
prednisone 20 mg tablet 20 mg PO DAILY Anti-Inflammatory 01/21/24
prednisone 5 mg tablet 10 mg PO DAILY 01/21/24
sulfamethoxazole 800 mg-trimethoprim 160 mg tablet 2 tab PO TID 01/21/24
Review of Systems
-
A 12 point ROS was completed and negative except as noted: Yes
Constitutional: Denies Fever, Night Sweats or Chills
Respiratory: Denies Cough
Cardiac: Denies Chest Pain or Palpitations
Abdomen/GI: Denies Abdominal Pain, Nausea, Vomiting or Diarrhea
: Denies Dysuria or Frequency
Physical Exam
Vital Signs
Vital Signs
Temp Pulse Resp BP Pulse Ox
97.7 F 105 27 81/65 93
01/21/24 11:46 01/21/24 16:15 01/21/24 16:15 01/21/24 16:15 01/21/24 16:00
Physical Exam
General: Comfortable and Conversant
HEENT: Anicteric and Moist mucous membranes
Respiratory: Non Labored Respirations and Other (Coarse breath sounds bilateral bases)
Cardiac: S1/S2 and Regular Rhythm
GI: Soft and Non Tender
Skin: Other (Blanchable macular rash noted on entire back, upper chest and faintly on bilateral lower extremities)
Neuro: Awake, Alert, Oriented and Nonfocal/grossly intact
Laboratory Results
-
01/21/24 13:34
Laboratory Results
Lactic Acid Cancelled 01/21/24 17:45
Total Bilirubin 1.3 mg/dl (0.2-1.3) 01/21/24 13:34
AST 26 U/L (17-59) 01/21/24 13:34
ALT 32 U/L (0-50) 01/21/24 13:34
Alkaline Phosphatase 109 U/L (38-126) 01/21/24 13:34
Troponin I 0.170 ng/ml H* 01/21/24 13:34
Data Reviewed
-
Lab Data: Labs Reviewed by me
Old Records: Reviewed
Impression/Plan
-
Acute on Chronic Hyponatremia
-Consult Nephrology
-Continue 3% sodium infusion
-Resume oral sodium tabs and urea in AM
-Recheck sodium later this evening and in AM
Diffuse Rash, possible drug reaction to Bactrim vs Transfusion Reaction following PRBCs given on January 18
-Consult Infectious Disease
-Consult Hematology
-Hold Bactrim
-Continue Benadryl prn
Hypotension
-Hold Lasix and Metoprolol
-Start stress dose steroids
-Monitor BP closely
Leukocytosis and Elevated Procalcitonin - No clear source of infection
-Chest CT shows improved airspace disease compared to prior
-Patient received doses of vancomycin and Zosyn in ED - ID suggests holding further antibiotics
-Await blood cultures
Elevated Troponin, suspect Non-Ischemic Myocardial Injury insetting of hypotension
-Continue to trend troponin
Warm Hemolytic Anemia
-Consult Hematology
-Hgb stable following transfusion on January 18
-Monitor CBC closely
Hypothyroidism
-Continue Synthroid
Hx Left Occipital Stroke
-Continue aspirin
-Continue atorvastatin
Hx SVT
-Metoprolol on hold due to hypotension
-Monitor on Telemetry
DVT proph: SCDs
Code Status: DNR confirmed with patient at time of admission
--- NOTE | 2024-01-21 18:38 | W.PN.UPDATE ---
Update Note
Progress Note Update
This note serves as an addendum to the H&P by Amber Escudero on January 21, 2024.
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
blood pressure for the past 2 days. He states he was just recently discharged from on 01/19/2024 after a three week hospitalization. He noted that yesterday his visiting nurse noted his blood pressure was low and instructed him to hold his
metoprolol and Lasix. This morning he was very weak and BP was lower than yesterday (in the 80s per at bedside), which prompted them to come to the emergency department for evaluation. He is also complaining of a worsening rash. He notes he
had faint rash at time of discharge two days ago, but yesterday the rash became significantly worse; the rash started on the back, then spread to the chest and now faintly on the extremities. He used hydrocortisone cream last night with some
improvement in the pruritus. He denied fevers, sweats, chills, cough, abdominal pain, vomiting, diarrhea, or dysuria.
Vital Signs
Afebrile
HR in the 90s (but initially higher in the low 100s)
SBP in the 80s to 90s
RR in the 20s
Saturating oxygen well on room air/not hypoxic
Physical Exam
General: Not in acute distress
HEENT: Normocephalic
Respiratory: Coarse breath sounds bilateral bases
Cardiac: S1/S2 and Regular Rhythm. Regular Rate.
GI: Soft and Non Tender. Positive bowel sounds.
Skin: Other (Maculopapular rash noted on entire back, upper chest and faintly on bilateral lower extremities)
Neuro: Awake, Alert, Oriented and Nonfocal/grossly intact
Assessment/Plan
Acute on Chronic Hyponatremia
-Nephrology consulted, recommendations appreciated
-Continue 3% sodium infusion tonight
-Resume oral sodium tabs and urea in AM
-Recheck sodium later this evening and in AM
Diffuse Rash, possible drug reaction to Bactrim vs Transfusion Reaction following PRBCs given on January 18
-Consult Infectious Disease
-Consult Hematology
-Hold Bactrim
-Continue Benadryl prn
-Steroids
Recent Widespread interstitial pneumonitis with acute hypoxic respiratory insufficiency -> off O2.
-Now on room air
Hypotension
-Hold Lasix and Metoprolol
-Start stress dose steroids
-Monitor BP closely
Leukocytosis and Elevated Procalcitonin - No clear source of infection
-Chest CT shows improved airspace disease compared to prior
-Patient received doses of vancomycin and Zosyn in ED - ID suggested holding further antibiotics
-Await blood cultures
Elevated Troponin, suspect Non-Ischemic Myocardial Injury insetting of hypotension
-Continue to trend troponin
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
-Consult Hematology
-Hgb stable following transfusion on January 18
-Monitor CBC closely
Recent Neutropenia resolved after TBO-filgrastim; s/p BM bx 01/15/24
Hypothyroidism
-Continue Synthroid
Hx Left Occipital Stroke
-Continue aspirin
-Continue atorvastatin
Hx SVT
-Metoprolol on hold due to hypotension
-Monitor on Telemetry
History of Recurrent left pleural effusion
SVT
Chronic SIADH
CVA
BP
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
Bullous pemphigoid
Fatty liver
Diverticulosis
Chronic lower extremity edema
Vertebral fracture
DVT prophylaxis: SCDs
Code Status: DNR confirmed with patient at time of admission
[2024-01-21] MEDS: DECADRON 10 MG IV (18:55)
[2024-01-21] MEDS: SODIUM CHLORIDE 3% 250 IV (18:55)
--- NOTE | 2024-01-21 21:34 | CON.ONC ---
Impression
Impression
Autoimmune hemolytic anemia, treatment-refractory
Hypotension and hyponatremia, suspect adrenal insufficiency
Rash, suspect related to Bactrim
Plan
Plan
Steroids may have been tapered too quickly during previous admission, from 60 to 30, after months at 60.
He got steroids in ED.
The hyponatremia and hypotension may have contributed to weakness beginning yesterday but it sounds like they were acute in onset. Chest CT - no PE.
Chest CT shows significant improvement in lung infiltrates.
Hgb stable since 01/18. If recurrent substantial hemolysis, would consider splenectomy as steroids and Rituxan have been ineffective for him.
Await bone marrow biopsy result.
Daily CBC c diff.
Suspect Bactrim could be d/c'd as bronch was negative for PCP, and Bactrim is the likely cause of his rash.
Thank you for consult, will follow along with you.
Patient History
History of Present Illness
78 yo man well-known to me from the outpt setting for history of treatment-refractory hemolytic anemia. He had been hospitalized 12/31 - 01/18 after presenting with lethargy, weakness, low BP, shortness of breath and hypoxic respiratory failure. He
had been on prednisone 60 mg daily for the hemolytic anemia for months with addition of Rituxan weekly x 4 from 11/07 - 11/28 with stabilization but not normalization of his hemoglobin. During hospitalizatio he was treated empirically for PCP although
bronch returned negative. He required multiple transfusions. He underwent bone marrow biopsy but had already been started on G-CSF at that point for new neutropenia. Pt was D/C'd home on 01/18 on prednisone 30 mg daily and initially did well,
ambulating with walker, able to shower. On 01/19 pm he became much weaker and felt he could not walk. His visiting nurse noted his blood pressure was low and instructed him to hold his metoprolol and Lasix. This morning he was very weak and BP was
lower than yesterday (in the 80s per at bedside), which prompted them to come to the emergency department for evaluation. He is also complaining of a worsening rash. He notes he had faint rash at time of discharge two days ago, but yesterday
the rash became significantly worse; the rash started on the back, then spread to the chest and now faintly on the extremities. He used hydrocortisone cream last night with some improvement in the pruritus. He denied fevers, sweats, chills, cough,
abdominal pain, vomiting, diarrhea, or dysuria.
Change in strength was sudden. Brought to ED today where Hgb stable at 9.6 (last transfused 01/18 for Hgb 9.6) but Na 121, BP 80's/60's.
Past-Medical/Surgical History
Past Medical History
Hypothyroidism
Autoimmune Hemolytic Anemia
Bullous Pemphigoid
Chronic Left Pleural Effusion
Chronic Hypotension
Chronic Lower Extremity Edema
Left Occipital Stroke
SVT
Past Surgical History
Left Thoracentesis
Tonsillectomy
Social History
Tobacco: Non-smoker
Alcohol: None
Drug: None
Personal:
Living: With Family ()
Employment: Retired
Family History
Family History: Not pertinent
Patient Medication
�Medication �Instructions �Recorded �Confirmed �Last Taken �Type
levothyroxine 75 mcg tablet 75 mcg PO DAILY@0700 Thyroid 12/03/18 01/21/24 01/21/24 History
folic acid 1 mg tablet 1 mg PO DAILY Supplement 09/26/23 01/21/24 01/21/24 History
polyethylene glycol 3350 17 gram 17 g PO DAILY constipation 10/17/23 01/21/24 01/21/24 History
oral powder packet ([employer])
sodium chloride 1,000 mg soluble 1,000 mg PO BID Electrolyte 10/17/23 01/21/24 01/21/24 History
tablet Repletion
cholecalciferol (vitamin D3) 25 25 mcg PO DAILY Supplement 10/30/23 01/21/24 01/21/24 History
mcg (1,000 unit) tablet
aspirin 81 mg tablet,delayed 81 mg PO DAILY Blood clot 11/03/23 01/21/24 01/21/24 Rx
release prevention/tx #30 tabs
atorvastatin 40 mg tablet 40 mg PO QPM High cholesterol #30 11/03/23 01/21/24 01/20/24 Rx
tabs
cyanocobalamin (vitamin B-12) 1,000 mcg PO DAILY Supplement #30 11/03/23 01/21/24 01/21/24 Rx
1,000 mcg tablet tabs
pantoprazole 40 mg tablet,delayed 40 mg PO DAILY Gastrointestinal 11/03/23 01/21/24 01/21/24 Rx
release issue #30 tabs
urea 15 gram oral powder packet 1 packet PO BID Electrolyte 01/01/24 01/21/24 01/21/24 History
Repletion
furosemide 20 mg tablet 20 mg PO DAILY hyponatremia 01/21/24 01/21/24 01/20/24 History
metoprolol succinate 25 mg 25 mg PO DAILY Heart 01/21/24 01/21/24 01/20/24 History
tablet,extended release 24 hr disease/condition
prednisone 20 mg tablet 20 mg PO DAILY Anti-Inflammatory 01/21/24 01/21/24 01/21/24 History
prednisone 5 mg tablet 10 mg PO DAILY 01/21/24 01/21/24 01/21/24 History
sulfamethoxazole 800 2 tab PO TID 01/21/24 01/21/24 01/20/24 History
mg-trimethoprim 160 mg tablet
Active Medications
Generic Name Dose Route Start Last Admin
Trade Name Freq PRN Reason Stop Dose Admin
Acetaminophen 650 mg 01/21/24 20:42
Acetaminophen 325 Mg Tablet PO 02/18/24 20:41
Q4HPRN PRN
mild pain/ fever>100.5F
Aspirin 81 mg 01/22/24 08:00
Aspirin 81 Mg (Enteric Coated) Tablet PO 02/19/24 07:59
DAILY KAY
Atorvastatin Calcium 40 mg 01/22/24 18:00
Atorvastatin (Lipitor) 40 Mg Tablet PO 02/19/24 17:59
QPM KAY
Diphenhydramine HCl 25 mg 01/21/24 20:42
Diphenhydramine 25 Mg Capsule PO 02/18/24 20:41
Q4HPRN PRN
rash/pruritus
Heparin Sodium 5,000 units 01/22/24 08:00
Heparin 5,000 Units/Ml 1 Ml Vial SC 02/19/24 07:59
Q12 KAY
Hydrocortisone Sodium Succinate 50 mg 01/22/24 08:00
Hydrocortisone Sodium Succinate 100 Mg/2 Ml Vial IV 02/19/24 07:59
Q8 KAY
Sodium Chloride 250 mls @ 30 mls/hr 01/21/24 19:00 01/21/24 18:55
Sodium Chloride 3% IV 01/22/24 03:19 250 mls
ONCE ONE Administration
Levothyroxine Sodium 75 mcg 01/22/24 06:00
Levothyroxine 75 Mcg Tablet PO 02/19/24 05:59
DAILY@0600 KAY
Pantoprazole Sodium 40 mg 01/22/24 08:00
Pantoprazole 40 Mg Delayed Release Tablet PO 02/19/24 07:59
DAILY KAY
Polyethylene Glycol 17 grams 01/22/24 08:00
Polyethylene Glycol Powder 17 Grams Packet PO 02/19/24 07:59
DAILY KAY
Sodium Chloride 0 flush 01/21/24 21:00
Sodium Chloride 0.9% (Flush) Syringe IV 02/18/24 20:59
PER PROTOCOL KAY
Sodium Chloride 1 gram 01/22/24 08:00
Sodium Chloride 1 Gram Tablet PO 02/19/24 07:59
BID KAY
Urea 15 grams 01/21/24 20:54
Urea 15 Grams Powder Packet (Non-Form) PO 02/18/24 20:41
BID KAY
Review of Systems
-
History Source: Patient, Physician and Records
All Other Systems: Reviewed and Negative
Constitutional: Reports Fatigue and Weakness
EENT: Reports No Symptoms
Respiratory: Reports No Symptoms
Cardiac: Reports No Symptoms
GI: Reports No Symptoms
: Reports No Symptoms
Musculoskeletal: Reports Muscle Weakness
Skin: Reports Itching and Rash
Neuro: Reports Weakness
Endocrine: Reports No Symptoms
Hematologic/Lymphatic: Reports No Symptoms
Allergy / Immunology: Reports No Symptoms
Psych: Reports No Symptoms
Physical Exam
-
General: Well Developed, Well Nourished and Other (Plethoric complexion)
HEENT: Moist Mucous Membranes; Negative Jaundice
Cardiology: Normal Sinus Rhythm, S1 and S2
Pulmonary: Clear; Negative Wheezes
GI: Soft; Negative Distended
Musculoskeletal: No Clubbing, No Cyanosis and No Edema
Extremities: No C/C/E
Neurology: Non Focal
Skin: Warm, Dry and Rash (Lacy reticular, covering his back)
Hematologic / Lymphatic: No Lymphadenopathy and No Petechiae
Psych: Calm and Intact Judgement/Insight
Labs
Lab Results
WBC 14.4 10^3/uL (4.8-10.8) H 01/21/24 13:34
RBC 2.93 10^6/uL (4.70-6.10) L 01/21/24 13:34
Hgb 9.3 g/dL (13.0-18.0) L 01/21/24 13:34
Hct 27.5 % (39.0-52.0) L 01/21/24 13:34
MCV 93.9 fL (80.0-94.0) 01/21/24 13:34
MCH 31.7 pg (27.0-31.0) H 01/21/24 13:34
MCHC 33.8 g/dL (33.0-37.0) 01/21/24 13:34
RDW 20.4 % (11.5-14.5) H 01/21/24 13:34
Plt Count 105 10^3/uL (130-400) L D 01/21/24 13:34
MPV 10.9 fL (7.4-10.4) H 01/21/24 13:34
Abs Immat Gran (auto) 0.9 10^3/uL (0-0.05) H 01/21/24 13:34
Absolute Neuts (auto) 13.3 10^3/uL (1.4-6.5) H 01/21/24 13:34
Absolute Lymphs (auto) 0.1 10^3/uL (1.2-3.4) L 01/21/24 13:34
Absolute Monos (auto) 0.1 10^3/uL (0.1-0.6) 01/21/24 13:34
Absolute Eos (auto) 0.0 10^3/uL (0-0.7) 01/21/24 13:34
Absolute Basos (auto) 0.0 10^3/uL (0-0.2) 01/21/24 13:34
Immature Gran % 6.0 % (0-0.5) H 01/21/24 13:34
Neutrophils % 92.2 % (42.2-75.2) H 01/21/24 13:34
Lymphocytes % 0.6 % (20.5-51.1) L 01/21/24 13:34
Monocytes % 0.9 % (1.7-9.3) L 01/21/24 13:34
Eosinophils % 0.1 % (0-6) 01/21/24 13:34
Basophils % 0.2 % (0-2) 01/21/24 13:34
Creatinine 1.0 mg/dL (0.7-1.3) 01/21/24 13:34
Vital Signs
Vital Signs
Temp Pulse Resp BP Pulse Ox
97.7 F 92 25 86/62 97
01/21/24 20:41 01/21/24 20:15 01/21/24 20:15 01/21/24 20:00 01/21/24 19:45
[2024-01-21 22:19] LABS: Blood Urea Nitrogen 33 mg/dl (9-20); Carbon Dioxide 17 mmol/L (22-30); Chloride 95 mmol/L (98-107); Estimated Creatinine Clearance 76 ml/min; Glucose 106 mg/dl (70-99); Potassium 4.4 mmol/L (3.5-5.1); Sodium 122 mmol/L (135-145); eGFR > 60.00
--- NOTE | 2024-01-21 22:25 | PTCARENOTE ---
Received pt from ED via stretcher. Pt states he is unable to stand and pivot to bed d/t weakness that began in the last day. Diffuse rash noted all over back, chest and abdomen, groin, and arms. Face is very flushed. Pt offers no complaints. +1
pitting edems in b/l lower extremeties. Pt right foot has multiple healing wounds with 2nd and 3rd toes noted to be necrotic but still can feel them 'a little'. Rest of assessment is as documented. SBP remains in the 80s with MAPs in the 70s.
HR 80s/90s, in NSR on monitor. Pt resting in bed with call henderson in reach.
[2024-01-21 22:28] LABS: Troponin I 0.101 ng/ml
[2024-01-22] VITALS (29 sets, daily range): BP systolic 82–111; BP diastolic 55–82; PULSE 92–122; O2SAT 97–100; BMI 24.6
[2024-01-22 05:32] LABS: % Basophils 0.2 % (0-2); % Immature Granulocytes 5.5 % (0-0.5); % Lymphocytes 1.5 % (20.5-51.1); % Monocytes 1.7 % (1.7-9.3); % Neutrophils 91.1 % (42.2-75.2); Absolute Immature Granulocytes 0.3 10^3/uL (0-0.05); Absolute Lymphocytes 0.1 10^3/uL (1.2-3.4); Absolute Monocytes 0.1 10^3/uL (0.1-0.6); Absolute Neutrophils 5.4 10^3/uL (1.4-6.5); Hematocrit 24.5 % (39.0-52.0); Hemoglobin 8.1 g/dL (13.0-18.0); Mean Corp Hgb Conc. 33.1 g/dL (33.0-37.0); Mean Corpuscular Hgb 32.3 pg (27.0-31.0); Mean Corpuscular Volume 97.6 fL (80.0-94.0); Nucleated Red Blood Cells % 0.3 % (-); Red Blood Cell Count 2.51 10^6/uL (4.70-6.10); Red Cell Dist. Width 20.6 % (11.5-14.5)
[2024-01-22 05:33] LABS: Troponin I 0.061 ng/ml
[2024-01-22 05:38] LABS: Blood Urea Nitrogen 27 mg/dl (9-20); Calcium 7.6 mg/dl (8.4-10.2); Carbon Dioxide 19 mmol/L (22-30); Chloride 101 mmol/L (98-107); Estimated Creatinine Clearance 87 ml/min; Glucose 101 mg/dl (70-99); Potassium 4.2 mmol/L (3.5-5.1); Sodium 125 mmol/L (135-145); eGFR > 60.00
[2024-01-22] MEDS: SYNTHROID 75 MCG PO (06:20)
[2024-01-22 07:45] LABS: Mean Platelet Volume 11.3 fL (7.4-10.4); Platelet Count 77 10^3/uL (130-400)
[2024-01-22] MEDS: URE-NA 15 GRAMS PO ×2 (08:05→20:17)
[2024-01-22] MEDS: SOLU-CORTEF 50 MG IV ×3 (08:05→20:17)
[2024-01-22] MEDS: SODIUM CHLORIDE 1 GRAM PO ×2 (08:05→20:17)
[2024-01-22] MEDS: MIRALAX 17 GRAMS PO (08:05)
[2024-01-22] MEDS: ASPIR LOW (ENTERIC COATED) 81 MG PO (08:05)
[2024-01-22] MEDS: PROTONIX 40 MG PO (08:05)
[2024-01-22] MEDS: HEPARIN 5000 UNITS SC ×2 (08:05→20:17)
--- NOTE | 2024-01-22 08:28 | CON.ID ---
Consultation
-
Date/Time Consultation Requested: 01/21/20242041
Date/Time Consultation Performed: 01/22/2024 0830
Requesting Provider: Dr. Van Palacios
Performing Provider: Dr. Daiana Sims
Reason for Consultation: Rash on Bactrim
Chief Complaint / Past History
Chief Complaint
Weakness, low BP, rash
History of Present Illness
76-year-old male well-known to me with recent diagnosis of warm autoimmune hemolytic anemia diagnosed in November 2023 and received 4 doses of weekly Rituxan and maintained on high-dose steroid. He was admitted to the hospital from December 31 to January 18
with acute shortness of breath, hypoxemic respiratory insufficiency requiring oxygen, widespread interstitial pneumonitis which did not respond to 9 days of vancomycin/Zosyn, as well as diuretic. On January 08 he underwent bronchoscopy. I started him
on empiric PJP treatment with Bactrim double strength 2 tablets 3 times daily planning for 21 days despite negative silver stain on pathology since sensitivity of silver stain is poor in setting of known HIV immunocompromised host. Patient
responded to the Bactrim during the hospital stay and was able to wean off of oxygen. During that hospital stay he also had several blood transfusions of packed red blood cells, and was neutropenic and received filgrastim. He underwent bone marrow
biopsy - result which still pending. The prednisone was weaned down from 60 mg to 30 mg a day prior to discharge. He was discharged to home on January 18 to complete the Bactrim through January 28 followed by suppression while on prednisone 20 mg or more
daily. While at home patient noted a rash initially faint that was in his back which then progressively spread to his front on the trunk and extremities. Rash was itchy. Visiting nurse also noted low blood pressure and he was instructed to hold
the furosemide and metoprolol. However his blood pressure remained low and he felt weak. He presented back to the hospital yesterday January 20. White count of 14.4. Blood pressure in the 80s/90s. He was started on stress dose steroid. Bactrim was
held. He received a dose of vancomycin and Zosyn in the ER.Today patient reports pruritus has improved. He has no respiratory symptoms. No diarrhea.
Past History
Additional Past Medical History:
Hypertension
Recurrent left pleural effusion
SVT
Hypothyroidism
Chronic SIADH
CVA
BP
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
Bullous pemphigoid
Fatty liver
Diverticulosis
Chronic lower extremity edema
Vertebral fracture
Allergy History:
amlodipine Allergy (Verified 01/01/24 14:19)
pt states it caused his sodium level to be low
Medications Reviewed: Yes
Current Antibiotics:
s/p Vanco/Zosyn x 1
Social History
Tobacco: Non-Smoker
Alcohol: None
Drug: None
Personal:
Living: With Family
Family History
Family History: Not Pertinent
Review of Systems
Review of Systems
General: Negative Fever, Chills or Change in Appetite
HEENT: Negative Sinus Problems, Headache or Pharyngitis
Cardiovascular: Negative Chest Pain or Dyspnea
Respiratory: Negative Dyspnea or Cough
Gasteroenterology: Other (no diarrhea); Negative Nausea or Vomiting
Genital / Urological: Negative Dysuria or Flank Pain
Endocrine: Weakness
Skin / Hair / Nails: Rash
Neurological: Negative Headache or Dizziness
All systems: All other systems were reviewed and were negative
Vital Signs
Temp Pulse Resp BP Pulse Ox
97.5 F 105 27 93/65 92
01/22/24 03:41 01/22/24 08:00 01/22/24 08:00 01/22/24 07:01 01/22/24 08:00
Physical Exam
Physical Exam
Constitutional: No Acute Distress and Comfortable
Eyes: No Conjunctival Hemorrhage and Sclera Anicteric
Cardiovascular: Regular Rate and S1/S2
Pulmonary: Clear
Gastrointestinal: Non Tender, Non Distended and Normal Bowel Sounds
Genito-Urinary: Negative CVA Tenderness
Extremities: Edema (1+ BLE)
Skin: Rash (Diffuse maculopapular rash on chest, abdomen, back, bilateral thighs)
Neurological: AO x 3
Lab / Diagnostic Study Results
01/22/24 04:55
01/22/24 04:55
Abs Immat Gran (auto) 0.3 10^3/uL (0-0.05) H 01/22/24 04:55
Absolute Neuts (auto) 5.4 10^3/uL (1.4-6.5) 01/22/24 04:55
Absolute Lymphs (auto) 0.1 10^3/uL (1.2-3.4) L 01/22/24 04:55
Absolute Monos (auto) 0.1 10^3/uL (0.1-0.6) 01/22/24 04:55
Absolute Basos (auto) 0.0 10^3/uL (0-0.2) 01/22/24 04:55
Immature Gran % 5.5 % (0-0.5) H 01/22/24 04:55
Neutrophils % 91.1 % (42.2-75.2) H 01/22/24 04:55
Lymphocytes % 1.5 % (20.5-51.1) L 01/22/24 04:55
Monocytes % 1.7 % (1.7-9.3) 01/22/24 04:55
Eosinophils % 0.0 % (0-6) 01/22/24 04:55
Basophils % 0.2 % (0-2) 01/22/24 04:55
Lactic Acid Cancelled 01/21/24 17:45
Procalcitonin 0.70 ng/ml (0.0-0.25) H 01/21/24 14:03
Microbiology Results
Micro:
01/21/24 21:49 Blood Culture - Pending
Blood/Venous
01/21/24 14:03 Blood Culture - Pending
Blood/Venous
01/21/[address]: No CT evidence for pulmonary embolism. No aortic dissection. Significant improvement in widespread bilateral airspace disease seen on the prior CT scan 2.5 weeks ago. Persistent airspace disease as outlined above. No new area of
acute airspace process.
Assessment / Plan
# Drug rash from Bactrim.
- Offending drug dc'd.
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
-Recent widespread bilateral interstitial lung opacities/hypoxemia did not respond to Vanco/Zosyn and diuretic
-risk factor for PJP - prolonged high dose steroid >1 month
- s/p bronch/BAL 01/08. Cx usual resp torri. + yeast which is not significant
BAL path: silver stain negative for Pneumocystis organisms
However BAL silver stain for PJP has low sensitivity (80's) in non-HIV immunosuppressed host.
- He is responding well to empiric PJP tx, weaned off oxygen; Repeat CT chest (01/20) significant improvement of widespread airspace disease
- Replace Bactrim (day 13 of ) with Dapsone 100mg po daily plus trimethoprim 400mg po tid for remaining course through 01/29/24.
Check G6PD.
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
- s/p BM biopsy- result pending
-Hem/Onc following
#Additional Past Medical History:
Hypertension
Recurrent left pleural effusion
SVT
Hypothyroidism
Chronic SIADH
CVA
BP
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
Bullous pemphigoid
Fatty liver
Diverticulosis
Chronic lower extremity edema
Vertebral fracture
--- NOTE | 2024-01-22 09:40 | W.PN.NEPH.PH ---
Today's Communication / Plan
-
follow BMP
Assessment/Plan
-
Assessment:
Hyponatremia acute on chronic
anemia, hemolytic
bilateral pulmoanry infiltrates
Diffuse blanching macular rash
ischemic stroke
Hypotension
hypothyrodism
Plan:
Continue salt tablets and urea
Lasix 20 mg twice daily held for hypotension
continue with fluid restriction.
Serial BMP
Stress dose steroids
abx for PJP per ID
-
-
Date of Service: January 22, 2024
CC / HPI / ROS
-
Chief Complaint:
hyponatremia
History of Present Illness:
Na up to 125 with 3%
BP improving on IV steroids
rash improving on steroids
Hgb down to 8.1
Review of Systems:
no CP/SOB
constipated
Labs
-
Labs:
WBC 6.0 10^3/uL (4.8-10.8) 01/22/24 04:55
RBC 2.51 10^6/uL (4.70-6.10) L 01/22/24 04:55
Hgb 8.1 g/dL (13.0-18.0) L 01/22/24 04:55
Hct 24.5 % (39.0-52.0) L 01/22/24 04:55
Plt Count 77 10^3/uL (130-400) L D 01/22/24 04:55
Sodium 125 mmol/L (135-145) L 01/22/24 04:55
Potassium 4.2 mmol/L (3.5-5.1) 01/22/24 04:55
Chloride 101 mmol/L (98-107) 01/22/24 04:55
Carbon Dioxide 19 mmol/L (22-30) L 01/22/24 04:55
BUN 27 mg/dl (9-20) H 01/22/24 04:55
Creatinine 0.7 mg/dL (0.7-1.3) 01/22/24 04:55
eGFR > 60.00 01/22/24 04:55
Glucose 101 mg/dl (70-99) H 01/22/24 04:55
Calcium 7.6 mg/dl (8.4-10.2) L 01/22/24 04:55
Wvr-Y-Fgvlwzczivs Pept 2300 pg/ml 01/21/24 13:34
Albumin 3.0 g/dl (3.5-5.0) L 01/21/24 13:34
Physical Exam
-
Vital Signs:
Vital Signs
Temp Pulse Resp BP Pulse Ox
98.1 F 105 27 93/65 92
01/22/24 07:01 01/22/24 08:00 01/22/24 08:00 01/22/24 07:01 01/22/24 08:00
Cardiovascular:: Regular rate and rhythm
Respiratory:: Bilateral: Coarse
Lung Excursion:: Normal
Abdomen:: Nontender and Soft
Bowel Sounds:: Normal
Extremity Edema:: +1: Bilateral:
--- NOTE | 2024-01-22 09:49 | VNURNOTE ---
Patient is current with [facility] only since 01/20 w/SN, will monitor progress and plan at discharge.
[2024-01-22] MEDS: DAPSONE 100 MG PO (11:01)
[2024-01-22] MEDS: TRIMPEX 400 MG PO ×3 (11:02→20:18)
--- NOTE | 2024-01-22 11:22 | PTCARENOTE ---
Assumed care of patient this morning. He has no complaints and denies any pain. He reports rash this morning is not bothering him or itchy. Pt ate full breakfast and took morning medications without issue. Pt's at bedside now and updated per RN
ability. PT/OT did work with patient and he sat in chair for approx 1.5 hours. Bp still soft, systolic in 90s but MAP has been consistently >65. Assessment, care and VS as charted.
--- NOTE | 2024-01-22 11:38 | W.PN.ONC ---
Today's Communication / Plan
-
Continue hydrocortisone 50mg q6h for now (=Pred 50mg/d)
Would convert to oral prednisone once daily when stable, 50mg/d, to be tapered slowly
Bactrim likely caused rash, can also cause marrow suppression, and hemolytic anemia; G6PD testing pending
Monitor CBC daily
Dapsone for suspected PCP, pulm status much improved
Hgb stable since 01/18. If recurrent substantial hemolysis, would consider splenectomy as steroids and Rituxan have been ineffective for him.
Await 01/14 bone marrow biopsy result, though may be difficult to interpret as he got GCSF prior.
Impression
Impression
Autoimmune hemolytic anemia, treatment-refractory
Hypotension and hyponatremia, suspect adrenal insufficiency
Rash, suspect related to Bactrim
Plan
Plan
Continue hydrocortisone 50mg q6h for now (=Pred 50mg/d)
Would convert to oral prednisone once daily when stable, 50mg/d, to be tapered slowly
Bactrim likely caused rash, can also cause marrow suppression, and hemolytic anemia; G6PD testing pending
Monitor CBC daily
Dapsone for suspected PCP, pulm status much improved
Hgb stable since 01/18. If recurrent substantial hemolysis, would consider splenectomy as steroids and Rituxan have been ineffective for him.
Await 01/14 bone marrow biopsy result, though may be difficult to interpret as he got GCSF prior.
Subjective/Objective
Subjective/Objective
rash slightly better
breathing without issues
no bleeding
Vital Signs:
Vital Signs
Temp Pulse Resp BP Pulse Ox
98.1 F 97 26 94/69 94
01/22/24 07:01 01/22/24 11:00 01/22/24 11:00 01/22/24 11:00 01/22/24 10:00
Lab Results:
Laboratory Data
WBC 6.0 10^3/uL (4.8-10.8) 01/22/24 04:55
Hgb 8.1 g/dL (13.0-18.0) L 01/22/24 04:55
Plt Count 77 10^3/uL (130-400) L D 01/22/24 04:55
eGFR > 60.00 01/22/24 04:55
[2024-01-22 15:18] LABS: Blood Urea Nitrogen 38 mg/dl (9-20); Calcium 7.8 mg/dl (8.4-10.2); Carbon Dioxide 19 mmol/L (22-30); Chloride 97 mmol/L (98-107); Estimated Creatinine Clearance 87 ml/min; Glucose 126 mg/dl (70-99); Potassium 4.1 mmol/L (3.5-5.1); Sodium 122 mmol/L (135-145); eGFR > 60.00
--- NOTE | 2024-01-22 15:20 | WOUNDNOTE ---
WON RN note: Patient admitted with acute hypotension, CHF, hyponatremia.
See H&P for complete history.
PMH: Hemolytic anemia, hyponatremia, interstitial pneumonitis, pneumonia, ex smoker, bullous pemphigoid, L occipital stroke, L thoracentesis, and SVT, R foot wounds.
Wound Location and type/assessment: Patient admitted with: R toes/dorsal foot redness, dry eschar/gangrene of 2&3rd toe's, Great toe and 4th toe dorsal with anderson eschar. No odor from wounds, + pedal pulse palpable, skin warm and dry. Patient
reports no pain in toes except when touched to place dressing. Patient able to turn to side, sacrum and heels intact. at bedside reports that toes are a result of bullous pemphigoid, started as blisters. Used betamethasone dipropionate cream
0.05% in past to toes, now only moisturizing. reports in the past patient saw electronic service technician Dr. Barrera, confirmed has not been to see this for a long time.
Appetite: Good.
Pressure redistribution devices in place: On [facility] max air bed, can use Accumax when transferred to floor.
Plan: Applied Betadine swab to black toes, A&D ointment on anderson eschar and soft 2x2 gauze weaved btw toes. Dr. Palacios approved local wound care and made aware DENTON/TBI recommended and may need vascular consult. Order placed by Hospitalist for
arterial studies. Updated nurse, care plan and will follow as needed.
Note to case management of equipment requested for discharge: TBD
Recommend follow up at wound care center upon discharge.
--- NOTE | 2024-01-22 15:27 | W.PN.HOSP.TC ---
Today's Communication/Plan
-
Continue antibiotics as ordered, stress dose steroids
Monitor closely in IMU
Appreciate ID and Hematology
Assessment / Plan
Assessment / Plan
Physical Exam
General: Not in acute distress
HEENT: Normocephalic
Respiratory: Coarse breath sounds bilateral bases
Cardiac: S1/S2 and Regular Rhythm. Regular Rate.
GI: Soft and Non Tender. Positive bowel sounds.
Skin: Other (Maculopapular rash noted on entire back, upper chest and faintly on bilateral lower extremities)
Neuro: Awake, Alert, Oriented and Nonfocal/grossly intact
Assessment/Plan
Acute on Chronic Hyponatremia
-Nephrology consulted, recommendations appreciated
-Status post 3% sodium IV fluids
-Continue oral sodium tabs and urea in AM
-Continue daily PO fluid restriction
Diffuse Rash, possible drug reaction to Bactrim vs Transfusion Reaction following PRBCs given on January 18
-Consulted Infectious Disease, recommendations appreciated
-Consult Hematology
-Hold Bactrim as rash suspected to be due to Bactrim
-Continue Benadryl prn
-Stress dose steroids
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
Recent Widespread interstitial pneumonitis with acute hypoxic respiratory insufficiency -> off O2.
Immunocompromised State
-Now on room air
-Replace Bactrim (day ) with Dapsone 100mg po daily plus trimethoprim 400mg po tid for remaining course through 01/29/24 and check G6PD.
-Appreciate ID evaluation and recommendations
Hypotension in the Setting of Hyponatremia
-Suspected Adrenal Insufficiency
-Hold Lasix and Metoprolol due to hypotension
-Continue hydrocortisone 50mg q6h for now (=Pred 50mg/d) and convert to oral prednisone once daily when stable, 50mg/d, to be tapered slowly
-Monitor BP closely
-Spoke with endocrinology on-call, adrenal insufficiency is unlikely in this case since patient was already on Prednisone 30 mg daily at home
Right Foot Toes -- dry gangrene vs. bullous pemphigoid
-Discussed case on January 22, 2024 with Jessica Mo from wound care
-Ordered DENTON/TBI
Leukocytosis and Elevated Procalcitonin - No clear source of infection
-Chest CT shows improved airspace disease compared to prior
-Patient received doses of vancomycin and Zosyn in ED - ID suggested holding further antibiotics
-Await blood cultures
Elevated Troponin, suspect Non-Ischemic Myocardial Injury insetting of hypotension
-Continue to trend troponin
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
-Consult Hematology
-Hgb stable following transfusion on January 18
-Monitor CBC closely -- Bactrim likely caused rash, can also cause marrow suppression, and hemolytic anemia; G6PD testing pending
Recent Neutropenia resolved after TBO-filgrastim; s/p BM bx 01/15/24
Hypothyroidism
-Continue Synthroid
Hx Left Occipital Stroke
-Continue aspirin
-Continue atorvastatin
Hx SVT
-Metoprolol on hold due to hypotension
-Monitor on Telemetry
History of Recurrent left pleural effusion
SVT
Chronic SIADH
CVA
BP
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
Bullous pemphigoid
Fatty liver
Diverticulosis
Chronic lower extremity edema
Vertebral fracture
DVT prophylaxis: Heparin subq
Code Status: DNR confirmed with patient at time of admission
Anticipated Discharge: > 48 hours
Subjective/Interval History
-
Date of Service: January 22, 2024
Patient was seen and examined. He reported feeling better today.
Objective Data
-
Labs:
Laboratory Results
01/22/24 01/22/24
04:55 14:07
WBC 6.0
Hgb 8.1 L
Hct 24.5 L
Plt Count 77 L D
Sodium 125 L 122 L
Potassium 4.2 4.1
Chloride 101 97 L
Carbon Dioxide 19 L 19 L
BUN 27 H 38 H
Creatinine 0.7 0.7
Glucose 101 H 126 H
Calcium 7.6 L 7.8 L
Vital Signs:
Vital Signs
Temp Pulse Resp BP Pulse Ox
97.6 F 97 26 94/69 94
01/22/24 11:30 01/22/24 11:00 01/22/24 11:00 01/22/24 11:00 01/22/24 10:00
I&O
01/21/24 01/22/24 01/23/24
06:59 06:59 06:59
Output Total 300 / 300
Balance -300 / -300
[2024-01-22] MEDS: LIPITOR 40 MG PO (17:12)
[2024-01-22] MEDS: SAMSCA 7.5 MG PO (18:03)
--- NOTE | 2024-01-22 20:47 | PTCARENOTE ---
Received pt at change of shift. Pt resting in bed and states he's feeling better. No complaints of pruritus from rash that is still present all over trunk, groin, and arms. BP currently 107/80 HR 97. Resting in bed with call henderson in reach.
[2024-01-23] VITALS (12 sets, daily range): BP systolic 96–115; BP diastolic 63–86; BMI 24.5
[2024-01-23] MEDS: SOLU-CORTEF 50 MG IV ×3 (04:09→19:57)
[2024-01-23] MEDS: SYNTHROID 75 MCG PO (04:10)
[2024-01-23 05:14] LABS: Blood Urea Nitrogen 40 mg/dl (9-20); Calcium 8.2 mg/dl (8.4-10.2); Carbon Dioxide 19 mmol/L (22-30); Chloride 101 mmol/L (98-107); Estimated Creatinine Clearance 76 ml/min; Glucose 99 mg/dl (70-99); Potassium 4.3 mmol/L (3.5-5.1); Sodium 127 mmol/L (135-145); eGFR > 60.00
--- NOTE | 2024-01-23 09:26 | PTCARENOTE ---
VS from previous shift pulled over, cannot verify accuracy.
[2024-01-23] MEDS: DAPSONE 100 MG PO (09:32)
[2024-01-23] MEDS: PROTONIX 40 MG PO (09:32)
[2024-01-23] MEDS: TRIMPEX 400 MG PO ×3 (09:32→19:57)
[2024-01-23] MEDS: SODIUM CHLORIDE 1 GRAM PO ×2 (09:32→19:57)
[2024-01-23] MEDS: ASPIR LOW (ENTERIC COATED) 81 MG PO (09:32)
[2024-01-23] MEDS: URE-NA 15 GRAMS PO ×2 (09:33→19:57)
[2024-01-23] MEDS: MIRALAX PO (09:33)
[2024-01-23] MEDS: HEPARIN 5000 UNITS SC ×2 (09:33→19:57)
--- NOTE | 2024-01-23 09:38 | CM ---
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 Seen by wound care nurse. Receiving IV Solucortef. PT & OT recommend HH.
Met with patient yesterday;
the patient resides in a 2 story house with 2 PRIMITIVO.
He is independent in ADLs and ambulation.
The patient says he was discharged from on 01/18 and returned to the hospital on 01/20.
DME - RW, SPC, shower chair, oximeter, BP machine
Current with [facility]
SNF - none
PCP - Santiago Garvin
Pharmacy - [facility]
Patient agreeable to resume [facility] at d/c for SN/PT/OT.
Plan home with [facility].
[2024-01-23] MEDS: SOLU-CORTEF IV (09:39)
[2024-01-23 11:21] LABS: % Basophils 0.5 % (0-2); % Eosinophils 0.7 % (0-6); % Immature Granulocytes 1.8 % (0-0.5); % Lymphocytes 2.5 % (20.5-51.1); % Monocytes 1.9 % (1.7-9.3); % Neutrophils 92.6 % (42.2-75.2); Absolute Eosinophils 0.1 10^3/uL (0-0.7); Absolute Immature Granulocytes 0.2 10^3/uL (0-0.05); Absolute Lymphocytes 0.2 10^3/uL (1.2-3.4); Absolute Monocytes 0.2 10^3/uL (0.1-0.6); Absolute Neutrophils 7.8 10^3/uL (1.4-6.5); Hematocrit 25.5 % (39.0-52.0); Hemoglobin 8.7 g/dL (13.0-18.0); Mean Corp Hgb Conc. 34.1 g/dL (33.0-37.0); Mean Corpuscular Hgb 32.5 pg (27.0-31.0); Mean Corpuscular Volume 95.1 fL (80.0-94.0); Mean Platelet Volume 10.9 fL (7.4-10.4); Nucleated Red Blood Cells % 0 % (-); Platelet Count 83 10^3/uL (130-400); Red Blood Cell Count 2.68 10^6/uL (4.70-6.10); Red Cell Dist. Width 20.4 % (11.5-14.5); White Blood Cell Count 8.4 10^3/uL (4.8-10.8)
--- NOTE | 2024-01-23 11:34 | W.PN.NEPH.PH ---
Today's Communication / Plan
-
- samsca 7.5mg today
Assessment/Plan
-
Assessment:
Hyponatremia acute on chronic
anemia, hemolytic
bilateral pulmoanry infiltrates
Diffuse blanching macular rash
ischemic stroke
Hypotension
hypothyrodism
Plan:
Continue salt tablets and urea
Lasix 20 mg twice daily held for hypotension
continue with fluid restriction.
Serial BMP
Stress dose steroids
abx for PJP per ID
given samsca yesterday, repeat dose today
-
-
Date of Service: January 23, 2024
CC / HPI / ROS
-
Chief Complaint:
hyponatremia
History of Present Illness:
Na up to 127 s/p samsca
BP improving on IV steroids
rash improving on steroids
Hgb down to 8.1
Review of Systems:
no CP/SOB
constipated
Labs
-
Labs:
Sodium 127 mmol/L (135-145) L 01/23/24 04:16
Potassium 4.3 mmol/L (3.5-5.1) 01/23/24 04:16
Chloride 101 mmol/L (98-107) 01/23/24 04:16
Carbon Dioxide 19 mmol/L (22-30) L 01/23/24 04:16
BUN 40 mg/dl (9-20) H 01/23/24 04:16
Creatinine 0.8 mg/dL (0.7-1.3) 01/23/24 04:16
eGFR > 60.00 01/23/24 04:16
Glucose 99 mg/dl (70-99) 01/23/24 04:16
Calcium 8.2 mg/dl (8.4-10.2) L 01/23/24 04:16
Xbv-[id number]-Jqedvvdfphk Pept 2300 pg/ml 01/21/24 13:34
Albumin 3.0 g/dl (3.5-5.0) L 01/21/24 13:34
Physical Exam
-
Vital Signs:
Vital Signs
Temp Pulse Resp BP Pulse Ox
96.2 F L 114 25 97/74 93
01/23/24 07:25 01/23/24 08:00 01/23/24 08:00 01/23/24 08:00 01/23/24 06:00
Cardiovascular:: Regular rate and rhythm
Respiratory:: Bilateral: Coarse
Lung Excursion:: Normal
Abdomen:: Nontender and Soft
Bowel Sounds:: Normal
Extremity Edema:: +1: Bilateral:
Krishnamurthy Catheter: No
[2024-01-23 11:45] LABS: Troponin I 0.027 ng/ml
--- NOTE | 2024-01-23 11:46 | PTCARENOTE ---
Pt was rec'd from warehouse worker 2nd shift, assisted oob to use BSC and then transfer to chair, HR later sustaining in 118-122 range, no pain/temp and BPs stable, ST on tele. Dr. Palacios notified, at bedside to assess, ECG and labs ordered. Pt no longer with
blood return from midline, mult attempts to stick pt peripherally, phlebotomy notified, labs drawn and sent. Pt now assissted back to bed, no complaints. Safe environment maintained. at bedside.
[2024-01-23] MEDS: SAMSCA 7.5 MG PO (12:06)
--- NOTE | 2024-01-23 12:06 | PTCARENOTE ---
Pt assisted back to bed, now resting quietly, HR 97. 7.5 mg Samsca given per orders.
--- NOTE | 2024-01-23 12:44 | PN.CDI ---
CDI
- -
CDI:
Physician Documentation Request
Admit Date: 01/21/24 19:26
Dear Doctor Suzanne,
Please review the following and provide your response in the progress notes.
Clinical Indicators:
Pt admitted with Acute on Chronic Hyponatremia
Pt on salt tabs at home and being treated with 3 % saline/ Samsca here
Progress notes 01/20 & 01/21 , ' Assessment/Plan Acute on Chronic Hyponatremia.....History of .....Chronic SIADH.'
Urine NA 28
Please clarify the suspected etiology of the Acute on Chronic Hyponatremia :
SIADH
Acute on Chronic Hyponatremia without SIADH
Other
Use of terms such as suspected, likely, concern for, or probable (associated with a specific diagnosis that is being evaluated, monitored, or treated as if it exists) are acceptable and can be coded in the inpatient setting, when documented at the
time of discharge.
Thank you,
Allegra Garcia RN
CDI Specialist
[place] Text
Please use your independent medical judgment in providing your response.
--- NOTE | 2024-01-23 12:54 | W.PN.ID1 ---
Date of Service
Date of Service: January 23, 2024
Today's Communication
Continue dapsone and trimethoprim.
See below.
Assessment / Plan
# Drug rash from Bactrim.
- Offending drug dc'd.
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
-Recent widespread bilateral interstitial lung opacities/hypoxemia did not respond to Vanco/Zosyn and diuretic
-risk factor for PJP - prolonged high dose steroid >1 month
- s/p bronch/BAL 01/08. Cx usual resp torri. + yeast which is not significant
BAL path: silver stain negative for Pneumocystis organisms
However BAL silver stain for PJP has low sensitivity (80's) in non-HIV immunosuppressed host.
- He is responding well to empiric PJP tx, weaned off oxygen; Repeat CT chest (01/20) significant improvement of widespread airspace disease
- s/p BactrimDS 2 q 8h x 12 d
-Continue with Dapsone 100mg po daily plus trimethoprim 400mg po tid for remaining course through 01/29/24.
G6PD pending.
- After PJP treatment, need PJP secondary prophylaxis (either dapsone 100mg daily or atovaquone 1500mg daily) while on prednisone 20mg or higher/day
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
- s/p BM biopsy- result pending
-Hem/Onc following
#Additional Past Medical History:
Hypertension
Recurrent left pleural effusion
SVT
Hypothyroidism
Chronic SIADH
CVA
BP
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
Bullous pemphigoid
Fatty liver
Diverticulosis
Chronic lower extremity edema
Vertebral fracture
Chief Complaint
-: Other (Rash)
Subjective / Review of Systems
Rash better.
Not as weak.
Vital Signs / Physical Exam
Vital Signs
Vital Signs
Temp Pulse Resp BP Pulse Ox
97.9 F 95 21 105/71 97
01/23/24 11:23 01/23/24 12:00 01/23/24 12:00 01/23/24 12:00 01/23/24 12:00
Physical Exam
Constitutional: Comfortable
Pulmonary: Clear
Gastrointestinal: Soft, Non Tender and Non Distended
Skin: Rash (Maculopapular rash decreased)
Neurological: AO x 3
Objective Data
Lab Data
Lab Results
01/23/24 11:01
01/23/24 04:16
Estimated Creat Clear 76 ml/min 01/23/24 04:16
Lactic Acid Cancelled 01/21/24 17:45
Total Bilirubin 1.3 mg/dl (0.2-1.3) 01/21/24 13:34
AST 26 U/L (17-59) 01/21/24 13:34
ALT 32 U/L (0-50) 01/21/24 13:34
Alkaline Phosphatase 109 U/L (38-126) 01/21/24 13:34
Most recent labs reviewed.
Micro Results:
01/21/24 21:49 Blood Culture - Preliminary
Blood/Venous No Growth in 24 hours- Final report to follow
01/21/24 14:03 Blood Culture - Preliminary
Blood/Venous No Growth in 24 hours- Final report to follow
01/21/[address]: No CT evidence for pulmonary embolism. No aortic dissection. Significant improvement in widespread bilateral airspace disease seen on the prior CT scan 2.5 weeks ago. Persistent airspace disease as outlined above. No new area of
acute airspace process.
--- NOTE | 2024-01-23 13:48 | W.PN.ONC ---
Today's Communication / Plan
-
Hb stable
follow CBC
Impression
Impression
Autoimmune hemolytic anemia, treatment-refractory
Hypotension
hyponatremia
Rash, suspect related to Bactrim
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
Plan
Plan
Hb stable today 8.7g/dl
Continue hydrocortisone 50mg q6h (=Pred 50mg/d)
Would convert to oral prednisone once daily when stable, 50mg/d, to be tapered slowly
CBC daily
Dapsone for suspected PCP, pulm status much improved/ ID following
Hgb stable. If recurrent substantial hemolysis, would consider splenectomy as steroids and Rituxan have been ineffective for him.
Await 01/14 bone marrow biopsy result
Subjective/Objective
Subjective/Objective
feels better, no SOB at rest or chest pain
Vital Signs:
Vital Signs
Temp Pulse Resp BP Pulse Ox
97.9 F 95 21 105/71 97
01/23/24 11:23 01/23/24 12:00 01/23/24 12:00 01/23/24 12:00 01/23/24 12:00
Lab Results:
Laboratory Data
WBC 8.4 10^3/uL (4.8-10.8) 01/23/24 11:01
Hgb 8.7 g/dL (13.0-18.0) L 01/23/24 11:01
Plt Count 83 10^3/uL (130-400) L 01/23/24 11:01
eGFR > 60.00 01/23/24 04:16
Exam: unchanged
--- NOTE | 2024-01-23 16:11 | W.PN.HOSP.TC ---
Today's Communication/Plan
-
Sinus tachycardia earlier today - resolved
Change to prednisone tomorrow and monitor response
Assessment / Plan
Assessment / Plan
Physical Exam
General: Not in acute distress
HEENT: Normocephalic
Respiratory: Coarse breath sounds bilateral bases
Cardiac: S1/S2 and Regular Rhythm. Regular Rate.
GI: Soft and Non Tender. Positive bowel sounds.
Skin: Other (Maculopapular rash noted on entire back, upper chest and faintly on bilateral lower extremities)
Neuro: Awake, Alert, Oriented and Nonfocal/grossly intact
Assessment/Plan
Acute on Chronic Hyponatremia, with possible component of SIADH
-Nephrology consulted, recommendations appreciated
-Status post 3% sodium IV fluids
-Continue oral sodium tabs and urea in AM
-Continue daily PO fluid restriction
-Samsca as per nephrology
Diffuse Rash, possible drug reaction to Bactrim vs Transfusion Reaction following PRBCs given on January 18
-Consulted Infectious Disease, recommendations appreciated
-Consult Hematology
-Hold Bactrim as rash suspected to be due to Bactrim
-Continue Benadryl prn
-Stress dose steroids--change Hydrocortisone to Prednisone 50 mg per day tomorrow
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
Recent Widespread interstitial pneumonitis with acute hypoxic respiratory insufficiency -> off O2.
Immunocompromised State
-Now on room air
-Replace Bactrim (day ) with Dapsone 100mg po daily plus trimethoprim 400mg po tid for remaining course through 01/29/24 and check G6PD.
-After PJP treatment, need PJP secondary prophylaxis (either dapsone 100mg daily or atovaquone 1500mg daily) while on prednisone 20mg or higher/day
-Appreciate ID evaluation and recommendations
Hypotension in the Setting of Hyponatremia
-Suspected Adrenal Insufficiency
-Hold Lasix and Metoprolol due to hypotension
-Switch hydrocortisone to oral prednisone once daily when stable, 50mg/d, to be tapered slowly
-Monitor BP closely
-Spoke with endocrinology on-call, adrenal insufficiency is unlikely in this case since patient was already on Prednisone 30 mg daily at home
Right Foot Toes -- dry gangrene vs. bullous pemphigoid
-Discussed case on January 22, 2024 with Jessica Mo from wound care
-Ordered DENTON/TBI
Leukocytosis and Elevated Procalcitonin - No clear source of infection
-Chest CT shows improved airspace disease compared to prior
-Patient received doses of vancomycin and Zosyn in ED - ID suggested holding further antibiotics
-Await blood cultures
Elevated Troponin, suspect Non-Ischemic Myocardial Injury insetting of hypotension
-Continue to trend troponin
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
-Consult Hematology
-Hgb stable following transfusion on January 18
-Monitor CBC closely -- Bactrim likely caused rash, can also cause marrow suppression, and hemolytic anemia; G6PD testing pending
Recent Neutropenia resolved after TBO-filgrastim; s/p BM bx 01/15/24
Hypothyroidism
-Continue Synthroid
Hx Left Occipital Stroke
-Continue aspirin
-Continue atorvastatin
Hx SVT
-Metoprolol on hold due to hypotension
-Monitor on Telemetry
History of Recurrent left pleural effusion
SVT
Chronic SIADH
CVA
BP
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
Bullous pemphigoid
Fatty liver
Diverticulosis
Chronic lower extremity edema
Vertebral fracture
DVT prophylaxis: Heparin subq
Code Status: DNR confirmed with patient at time of admission
Anticipated Discharge: > 48 hours
Subjective/Interval History
-
Date of Service: January 23, 2024
Patient was seen and examined. He denied chest pain, shortness of breath, dizziness or any other symptoms or complaints.
Objective Data
-
Labs:
Laboratory Results
01/23/24 01/23/24
04:16 11:01
WBC 8.4
Hgb 8.7 L
Hct 25.5 L
Plt Count 83 L
Sodium 127 L
Potassium 4.3
Chloride 101
Carbon Dioxide 19 L
BUN 40 H
Creatinine 0.8
Glucose 99
Calcium 8.2 L
Vital Signs:
Vital Signs
Temp Pulse Resp BP Pulse Ox
97.9 F 95 21 105/71 97
01/23/24 11:23 01/23/24 12:00 01/23/24 12:00 01/23/24 12:00 01/23/24 12:00
I&O
01/22/24 01/23/24 01/24/24
06:59 06:59 06:59
Intake Total 600 / 600
Output Total 300 / 300 550 / 550
Balance -300 / -300 50 / 50
[2024-01-23] MEDS: LIPITOR 40 MG PO (17:16)
[2024-01-24] VITALS (14 sets, daily range): BP systolic 100–116; BP diastolic 63–84; PULSE 105–134; BMI 24.3; BMI 23.9
[2024-01-24] MEDS: SYNTHROID 75 MCG PO (05:10)
--- NOTE | 2024-01-24 08:00 | PTCARENOTE ---
Pt was due for morning labs, was attempted x6 by multiple staff, unable to obtain. notified by night RN, and responded that pt may need central line, will discuss and clarify on rounds.
[2024-01-24] MEDS: URE-NA 15 GRAMS PO ×2 (09:44→21:49)
[2024-01-24] MEDS: DELTASONE 50 MG PO (09:49)
[2024-01-24] MEDS: PROTONIX 40 MG PO (09:50)
[2024-01-24] MEDS: SODIUM CHLORIDE 1 GRAM PO ×2 (09:50→21:51)
[2024-01-24] MEDS: TRIMPEX 400 MG PO ×3 (09:50→21:51)
[2024-01-24] MEDS: HEPARIN 5000 UNITS SC ×2 (09:50→21:52)
[2024-01-24] MEDS: DAPSONE 100 MG PO (09:50)
[2024-01-24] MEDS: ASPIR LOW (ENTERIC COATED) 81 MG PO (09:50)
[2024-01-24] MEDS: MIRALAX PO (09:50)
--- NOTE | 2024-01-24 09:55 | W.PN.ONC ---
Today's Communication / Plan
-
Hb not reported due to difficulty with venous access
Given his frequent transfusion and difficulty with access he may need a port placed he is agreeable
Continue hydrocortisone 50mg q6h (=Pred 50mg/d)
Would convert to oral prednisone once daily when stable, 50mg/d, to be tapered slowly
CBC daily
Dapsone for suspected PCP, pulm status much improved/ ID following
Hgb stable. If recurrent substantial hemolysis, would consider splenectomy as steroids and Rituxan have been ineffective for him.
Await 01/14 bone marrow biopsy result
Impression
Impression
Autoimmune hemolytic anemia, treatment-refractory
Hypotension
hyponatremia
Rash, suspect related to Bactrim
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
Subjective/Objective
Subjective/Objective
No new complaints this morning other than difficulty with access. Patient reports 5 phlebotomy attempts. Access increasingly difficult
Vital Signs:
Vital Signs
Temp Pulse Resp BP Pulse Ox
97.4 F 95 17 101/69 97
01/24/24 03:40 01/24/24 06:05 01/24/24 06:05 01/24/24 06:05 01/23/24 17:34
Unchanged
Lab Results:
Laboratory Data
WBC 8.4 10^3/uL (4.8-10.8) 01/23/24 11:01
Hgb 8.7 g/dL (13.0-18.0) L 01/23/24 11:01
Plt Count 83 10^3/uL (130-400) L 01/23/24 11:01
eGFR > 60.00 01/23/24 04:16
--- NOTE | 2024-01-24 10:20 | WOUNDNOTE ---
WO RN note: Gabriel texted Dr. Palacios this am re: DENTON/TBI results in, R toe pressure .15 and suggests small vessel disease. Dr. Srivastava responded he consulted podiatry and vascular.
--- NOTE | 2024-01-24 10:47 | W.PN.ID1 ---
Date of Service
Date of Service: January 24, 2024
Today's Communication
Continue dapsone and trimethoprim through 01/28.
Assessment / Plan
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
-Recent widespread bilateral interstitial lung opacities/hypoxemia did not respond to Vanco/Zosyn and diuretic
-risk factor for PJP - prolonged high dose steroid >1 month
- s/p bronch/BAL 01/08. Cx usual resp torri. + yeast which is not significant
BAL path: silver stain negative for Pneumocystis organisms
However BAL silver stain for PJP has low sensitivity (80's) in non-HIV immunosuppressed host.
- He is responding well to empiric PJP tx, weaned off oxygen; Repeat CT chest (01/20) significant improvement of widespread airspace disease
- s/p BactrimDS 2 q 8h x 12 d -> dc'd due to drug rash.
-Continue with Dapsone 100mg po daily and trimethoprim 400mg po tid for remaining course through 01/29/24.
G6PD pending.
- After PJP treatment, need PJP secondary prophylaxis (either dapsone 100mg daily or atovaquone 1500mg daily) while on prednisone 20mg or higher/day
## Drug rash from Bactrim.
- Improving off the drug.
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
- s/p BM biopsy- result pending
-Hem/Onc following
#Additional Past Medical History:
Hypertension
Recurrent left pleural effusion
SVT
Hypothyroidism
Chronic SIADH
CVA
BP
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
Bullous pemphigoid
Fatty liver
Diverticulosis
Chronic lower extremity edema
Vertebral fracture
Chief Complaint
-: Other (Rash)
Subjective / Review of Systems
No complaints.
Vital Signs / Physical Exam
Vital Signs
Vital Signs
Temp Pulse Resp BP Pulse Ox
97.4 F 95 17 101/69 97
01/24/24 07:50 01/24/24 06:05 01/24/24 06:05 01/24/24 06:05 01/23/24 17:34
Physical Exam
Constitutional: No Acute Distress
Pulmonary: Clear
Extremities: Edema (1+ BLE)
Skin: Rash (improving)
Objective Data
Lab Data
Estimated Creat Clear 76 ml/min 01/23/24 04:16
Lactic Acid Cancelled 01/21/24 17:45
Total Bilirubin 1.3 mg/dl (0.2-1.3) 01/21/24 13:34
AST 26 U/L (17-59) 01/21/24 13:34
ALT 32 U/L (0-50) 01/21/24 13:34
Alkaline Phosphatase 109 U/L (38-126) 01/21/24 13:34
Most recent labs reviewed.
Micro Results:
01/21/24 21:49 Blood Culture - Preliminary
Blood/Venous No Growth in 48 hours- Final report to follow
01/21/24 14:03 Blood Culture - Preliminary
Blood/Venous No Growth in 48 hours- Final report to follow
01/21/[address]: No CT evidence for pulmonary embolism. No aortic dissection. Significant improvement in widespread bilateral airspace disease seen on the prior CT scan 2.5 weeks ago. Persistent airspace disease as outlined above. No new area of
acute airspace process.
--- NOTE | 2024-01-24 11:14 | PTCARENOTE ---
Pt ordered PICC line by Dr. Palacios, VAT RN notified. Labs remain outstanding at this time. Orders also rec'd to downgrade to tele. Vascular and Podiatry consults placed by attending per DENTON/TBI testing results yesterday. PT in room to work with
pt at this time. No other needs verbalized.
--- NOTE | 2024-01-24 11:37 | PTCARENOTE ---
Room 2121 assigned -in process.
--- NOTE | 2024-01-24 11:37 | PTCARENOTE ---
Desenex powder ordered for groin fungal area per protocol.
--- NOTE | 2024-01-24 12:45 | PTCARENOTE ---
Report was given to 2N rn, will send pt over when PICC line is finished being placed.
--- NOTE | 2024-01-24 13:06 | PTCARENOTE ---
PICC placed, awaiting CXR at this time. labs sent per VAT RN.
[2024-01-24 13:11] LABS: % Basophils 0.3 % (0-2); % Eosinophils 1.1 % (0-6); % Immature Granulocytes 0.6 % (0-0.5); % Lymphocytes 1.7 % (20.5-51.1); % Monocytes 1.7 % (1.7-9.3); % Neutrophils 94.6 % (42.2-75.2); Absolute Eosinophils 0.1 10^3/uL (0-0.7); Absolute Immature Granulocytes 0.1 10^3/uL (0-0.05); Absolute Lymphocytes 0.2 10^3/uL (1.2-3.4); Absolute Monocytes 0.2 10^3/uL (0.1-0.6); Absolute Neutrophils 9.1 10^3/uL (1.4-6.5); Hematocrit 22.9 % (39.0-52.0); Hemoglobin 7.5 g/dL (13.0-18.0); Mean Corp Hgb Conc. 32.8 g/dL (33.0-37.0); Mean Corpuscular Hgb 32.2 pg (27.0-31.0); Mean Corpuscular Volume 98.3 fL (80.0-94.0); Mean Platelet Volume 11.6 fL (7.4-10.4); Nucleated Red Blood Cells % 0 % (-); Platelet Count 70 10^3/uL (130-400); Red Blood Cell Count 2.33 10^6/uL (4.70-6.10); White Blood Cell Count 9.6 10^3/uL (4.8-10.8)
[2024-01-24 13:23] LABS: Blood Urea Nitrogen 47 mg/dl (9-20); Calcium 8.3 mg/dl (8.4-10.2); Carbon Dioxide 19 mmol/L (22-30); Chloride 101 mmol/L (98-107); Estimated Creatinine Clearance 87 ml/min; Glucose 113 mg/dl (70-99); Magnesium 2.1 mg/dl (1.6-2.3); Potassium 4.7 mmol/L (3.5-5.1); Sodium 126 mmol/L (135-145); eGFR > 60.00
--- NOTE | 2024-01-24 15:07 | W.PN.HOSP.TC ---
Today's Communication/Plan
-
1 unit PRBC ordered -- may take a day or two since it has to go through pathology and [facility]
Prednisone PO
Transferred to [address] [place] [address]
Vascular consulted for TBI result
Assessment / Plan
Assessment / Plan
Physical Exam
General: Not in acute distress
HEENT: Normocephalic
Respiratory: Coarse breath sounds bilateral bases
Cardiac: S1/S2 and Regular Rhythm. Regular Rate.
GI: Soft and Non Tender. Positive bowel sounds.
Skin: Other (Maculopapular rash noted on entire back, upper chest and faintly on bilateral lower extremities)
Neuro: Awake, Alert, Oriented and Nonfocal/grossly intact
Assessment/Plan
Acute on Chronic Hyponatremia, with possible component of SIADH
-Nephrology consulted, recommendations appreciated
-Status post 3% sodium IV fluids
-Continue oral sodium tabs and urea in AM
-Continue daily PO fluid restriction
-Samsca as per nephrology
Diffuse Rash, possible drug reaction to Bactrim vs Transfusion Reaction following PRBCs given on January 18
-Consulted Infectious Disease, recommendations appreciated
-Consult Hematology
-Hold Bactrim as rash suspected to be due to Bactrim
-Continue Benadryl prn
-Stress dose steroids--changed Hydrocortisone to Prednisone 50 mg per day
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
Recent Widespread interstitial pneumonitis with acute hypoxic respiratory insufficiency -> off O2.
Immunocompromised State
-Now on room air
-Replace Bactrim (day ) with Dapsone 100mg po daily plus trimethoprim 400mg po tid for remaining course through 01/29/24 and check G6PD.
-After PJP treatment, need PJP secondary prophylaxis (either dapsone 100mg daily or atovaquone 1500mg daily) while on prednisone 20mg or higher/day
-Appreciate ID evaluation and recommendations
Hypotension in the Setting of Hyponatremia
-Suspected Adrenal Insufficiency
-Hold Lasix and Metoprolol due to hypotension
-Switched hydrocortisone to oral prednisone once daily when stable, 50mg/d, to be tapered slowly
-Monitor BP closely
-Spoke with endocrinology on-call, adrenal insufficiency is unlikely in this case since patient was already on Prednisone 30 mg daily at home
Right Foot Toes -- dry gangrene vs. bullous pemphigoid
-Discussed case on January 22, 2024 with Jessica Mo from wound care
-Ordered DENTON/TBI with severely low right sided TBI
-Consulted vascular surgery, recommendations appreciated
-Consulted podiatry, recommendations appreciated
Leukocytosis and Elevated Procalcitonin - No clear source of infection
-Chest CT shows improved airspace disease compared to prior
-Patient received doses of vancomycin and Zosyn in ED - ID suggested holding further antibiotics
-Await blood cultures
Elevated Troponin, suspect Non-Ischemic Myocardial Injury insetting of hypotension
-Continue to trend troponin
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
-Consult Hematology
-Hgb stable following transfusion on January 18
-Monitor CBC closely -- Bactrim likely caused rash, can also cause marrow suppression, and hemolytic anemia; G6PD testing pending
-Ordered 1 unit PRBC as Hgb dropped to 7.5
Recent Neutropenia resolved after TBO-filgrastim; s/p BM bx 01/15/24
Hypothyroidism
-Continue Synthroid
Hx Left Occipital Stroke
-Continue aspirin
-Continue atorvastatin
Hx SVT
-Metoprolol on hold due to hypotension
-Monitor on Telemetry
History of Recurrent left pleural effusion
SVT
Chronic SIADH
CVA
BP
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
Bullous pemphigoid
Fatty liver
Diverticulosis
Chronic lower extremity edema
Vertebral fracture
DVT prophylaxis: Heparin subq
Code Status: DNR confirmed with patient at time of admission
Anticipated Discharge: > 48 hours
Subjective/Interval History
-
Date of Service: January 24, 2024
Patient was seen and examined. He denied any new symptoms or complaints.
Objective Data
-
Labs:
Laboratory Results
01/24/24
12:56
WBC 9.6
Hgb 7.5 L
Hct 22.9 L
Plt Count 70 L
Sodium 126 L
Potassium 4.7
Chloride 101
Carbon Dioxide 19 L
BUN 47 H
Creatinine 0.7
Glucose 113 H
Calcium 8.3 L
Vital Signs:
Vital Signs
Temp Pulse Resp BP Pulse Ox
97.9 F 106 25 105/66 96
01/24/24 11:22 01/24/24 12:00 01/24/24 12:00 01/24/24 12:00 01/24/24 08:30
I&O
01/23/24 01/24/24 01/25/24
06:59 06:59 06:59
Intake Total 600 / 600 940 / 940 600 / 600
Output Total 550 / 550 1000 / 1000
Balance 50 / 50 -60 / -60 600 / 600
--- NOTE | 2024-01-24 16:01 | W.PN.UPDATE ---
Update Note
Progress Note Update
Seen and examined with DIALYSIS NURSE. Full consultation to follow. Briefly, 78-year-old male with history of PJP pneumonia, chronic hemolytic anemia/pancytopenia, bullous pemphigoid, and other medical problems as noted in his history. Hospitalized for
nearly a month recently, discharged home and then return to the hospital 2 days later. Returned due to low blood pressure. Asked to evaluate regarding discolored/black right foot second and third toes. Denies any history of revascularization in
the lower extremities. Denies any coronary artery disease history or coronary revascularizations. Denies diabetes, hypertension, hyperlipidemia. He does note minimal tobacco use while he was in the service smoking a pipe only for about 4 years.
On exam/he is awake and alert. He is in no acute distress. Breathing is unlabored. Abdomen is soft, nondistended, nontender. Lower extremity with 2+ femoral, popliteal, DP pulses palpable bilaterally. On the right side 2+ PT pulse palpable as
well. On the left side unable to palpate PT. distal right foot with base of toes erythematous discoloration. The second and third toes have through and through dry gangrene on the distal two thirds on the dorsal side, and distal one third on the
plantar side. Mummified toes. Demarcation at the base. First toe with fibrinous exudative covered ulceration and fourth toe and dorsal base of fourth toe with similar fibrinous exudative covered ulcer.
Noninvasive studies reviewed. He has multiphasic waveforms throughout bilateral lower extremity arteries. Multiphasic continuous Doppler waveforms bilaterally as well. Bilateral ABIs within normal limits. TBI on the right side is severely
decreased at 0.15. Left side within normal limits 1.52 (or could be falsely elevated).
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 I discussed with patient and his today the finding of dry gangrene in the nonrecoverable nature of these toes. This seemed to, somewhat
of a shock to them and I do not think they were aware of the fact that this is dry gangrene in these toes or not recoverable. I discussed options to be primary amputation versus allowing these to slough off. However in the latter circumstance (or
even in the former), adequate perfusion is paramount to healing. Based on his noninvasive studies and my exam, he has adequate perfusion at least to the level of the forefoot, but small vessel disease that may not be reconstructable. For
completeness sake I discussed would perform angiogram or could obtain CTA (although limited visualization of the tibial and pedal vessels on CTA is the main limitation of that study). They would prefer CTA to avoid an invasive therapy if not
needed. Therefore we will obtain CTA of the aorta with runoff. If any proximal treatable lesions will discuss, but otherwise small vessel disease and patient is at risk for needing TMA if nonhealing persist. Would consult podiatry as well.
--- NOTE | 2024-01-24 16:03 | CON.VAS ---
Consultation
Consultation Request
Performing Provider: Rafa
Reason for Consultation: Right second and third toe gangrene
Medical History
-
Chief Complaint: Weakness, Low Blood Pressure and Rash
History of Present Illness:
78-year-old male with history of PJP pneumonia, chronic hemolytic anemia/pancytopenia, bullous pemphigoid, and other medical problems as noted in his history. Hospitalized for nearly a month recently, discharged home and then return to the
hospital 2 days later. Returned due to low blood pressure. Asked to evaluate regarding discolored/black right foot second and third toes. Denies any history of revascularization in the lower extremities. Denies any coronary artery disease
history or coronary revascularizations. Denies diabetes, hypertension, hyperlipidemia. He does note minimal tobacco use while he was in the service smoking a pipe only for about 4 years.
On exam/he is awake and alert. He is in no acute distress. Breathing is unlabored. Abdomen is soft, nondistended, nontender. Lower extremity with 2+ femoral, popliteal, DP pulses palpable bilaterally. On the right side 2+ PT pulse palpable as
well. On the left side unable to palpate PT. distal right foot with base of toes erythematous discoloration. The second and third toes have through and through dry gangrene on the distal two thirds on the dorsal side, and distal one third on the
plantar side. Mummified toes. Demarcation at the base. First toe with fibrinous exudative covered ulceration and fourth toe and dorsal base of fourth toe with similar fibrinous exudative covered ulcer.
Noninvasive studies reviewed. He has multiphasic waveforms throughout bilateral lower extremity arteries. Multiphasic continuous Doppler waveforms bilaterally as well. Bilateral ABIs within normal limits. TBI on the right side is severely
decreased at 0.15. Left side within normal limits 1.52 (or could be falsely elevated).
Past Medical History
Past Medical History: Hypothyroidism and Other (Warm Hemolytic Anemia, Bullous Pemphigoid, Chronic Left Pleural Effusion, Chronic Hypotension, Chronic Lower Extremity Edema, Left Occipital Stroke, SVT)
Past Surgical History: Tonsilectomy and Other (Left Thoracentesis)
Social History
Tobacco: Non-Smoker
Alcohol: None
Drug: None
Personal:
Living: With Family
Employment: Retired
Family History
Family History: Reviewed & Not Pertinent
Allergies / Home Medications
Allergy/AdvReac Type Severity Reaction Status Date / Time
Sulfa (Sulfonamide Allergy Intermediate Rash Verified 01/22/24 09:08
Antibiotics)
amlodipine Allergy pt states Verified 01/01/24 14:19
it caused
his sodium
level to
be low
�Medication �Instructions �Recorded �Confirmed �Type
levothyroxine 75 mcg tablet 75 mcg PO DAILY@0700 Thyroid 12/03/18 01/21/24 History
folic acid 1 mg tablet 1 mg PO DAILY Supplement 09/26/23 01/21/24 History
polyethylene glycol 3350 17 gram 17 g PO DAILY constipation 10/17/23 01/21/24 History
oral powder packet ([employer]yLax)
sodium chloride 1,000 mg soluble 1,000 mg PO BID Electrolyte 10/17/23 01/21/24 History
tablet Repletion
cholecalciferol (vitamin D3) 25 25 mcg PO DAILY Supplement 10/30/23 01/21/24 History
mcg (1,000 unit) tablet
aspirin 81 mg tablet,delayed 81 mg PO DAILY Blood clot 11/03/23 01/21/24 Rx
release prevention/tx #30 tabs
atorvastatin 40 mg tablet 40 mg PO QPM High cholesterol #30 11/03/23 01/21/24 Rx
tabs
cyanocobalamin (vitamin B-12) 1,000 mcg PO DAILY Supplement #30 11/03/23 01/21/24 Rx
1,000 mcg tablet tabs
pantoprazole 40 mg tablet,delayed 40 mg PO DAILY Gastrointestinal 11/03/23 01/21/24 Rx
release issue #30 tabs
urea 15 gram oral powder packet 1 packet PO BID Electrolyte 01/01/24 01/21/24 History
Repletion
furosemide 20 mg tablet 20 mg PO DAILY hyponatremia 01/21/24 01/21/24 History
metoprolol succinate 25 mg 25 mg PO DAILY Heart 01/21/24 01/21/24 History
tablet,extended release 24 hr disease/condition
prednisone 20 mg tablet 20 mg PO DAILY Anti-Inflammatory 01/21/24 01/21/24 History
prednisone 5 mg tablet 10 mg PO DAILY Anti-Inflammatory 01/21/24 01/21/24 History
sulfamethoxazole 800 2 tab PO TID Infection 01/21/24 01/21/24 History
mg-trimethoprim 160 mg tablet
Review of Systems
-
History Source: Patient
All other systems: Negative unless noted
Constitutional: Reports No Symptoms
EENT: Reports No Symptoms
Respiratory: Reports Trouble Breathing (Resolved)
Cardiac: Reports No Symptoms
Vascular: Denies Leg Pain / Claudication
Abdomen/GI: Reports No Symptoms
: Reports No Symptoms
Musculoskeletal: Reports Edema
Skin: Reports Rash and Other (Right second and third toes black)
Neurological: Reports No Symptoms
Endocrine: Reports No Symptoms
Physical Exam
Vital Signs
Temp Pulse Resp BP Pulse Ox
97.9 F 92 20 116/76 96
01/24/24 14:40 01/24/24 14:40 01/24/24 14:40 01/24/24 14:40 01/24/24 14:40
Lab Results
01/24/24 12:56
01/24/24 12:56
Troponin I Cancelled 01/23/24 21:45
Prj-L-Blknmamlnvj Pept 2300 pg/ml 01/21/24 13:34
Physical Exam
General: No Apparent Distress
HEENT: Normocephalic and Atraumatic
Respiratory: Non Labored Respirations
Cardiac: Negative JVD
GI: Soft, Non Tender and Non Distended
Musculoskeletal: No Clubbing, No Cyanosis and Edema
Skin: Warm, Dry and Other (Right second and third toe with dry gangrene, demarcating)
Neuro: Awake, Alert and Oriented
Psych: Calm
Pulses: Bilateral Femoral: +2, Bilateral Popliteal: +2, Left Dorsalis Pedis: +1, Right Dorsalis Pedis: +1 and Right Posterior Tibial: +1
Assessment / Plan
-
78-year-old male with right second and third toe dry gangrene
Right TBI 0.15
Plan:
-CTA aorta with runoff
-Will follow-up with patient after scan is complete
-Recommend podiatry consult
--- NOTE | 2024-01-24 16:33 | W.PN.NEPH.PH ---
Today's Communication / Plan
-
- samsca
Assessment/Plan
-
Assessment:
Hyponatremia acute on chronic
anemia, hemolytic
bilateral pulmoanry infiltrates
Diffuse blanching macular rash
ischemic stroke
Hypotension
hypothyrodism
Plan:
Continue salt tablets and urea
Lasix 20 mg twice daily held for hypotension
continue with fluid restriction.
Serial BMP
Stress dose steroids
abx for PJP per ID
Na slightly down to 126, will give another dose of samsca
-
-
Date of Service: January 24, 2024
CC / HPI / ROS
-
Chief Complaint:
hyponatremia
History of Present Illness:
Na up to 126 s/p samsca
BP improving on IV steroids
rash improving on steroids
Hgb down to 7.5
Review of Systems:
no CP/SOB
constipated
Labs
-
Labs:
WBC 9.6 10^3/uL (4.8-10.8) 01/24/24 12:56
RBC 2.33 10^6/uL (4.70-6.10) L 01/24/24 12:56
Hgb 7.5 g/dL (13.0-18.0) L 01/24/24 12:56
Hct 22.9 % (39.0-52.0) L 01/24/24 12:56
Plt Count 70 10^3/uL (130-400) L 01/24/24 12:56
Sodium 126 mmol/L (135-145) L 01/24/24 12:56
Potassium 4.7 mmol/L (3.5-5.1) 01/24/24 12:56
Chloride 101 mmol/L (98-107) 01/24/24 12:56
Carbon Dioxide 19 mmol/L (22-30) L 01/24/24 12:56
BUN 47 mg/dl (9-20) H 01/24/24 12:56
Creatinine 0.7 mg/dL (0.7-1.3) 01/24/24 12:56
eGFR > 60.00 01/24/24 12:56
Glucose 113 mg/dl (70-99) H 01/24/24 12:56
Calcium 8.3 mg/dl (8.4-10.2) L 01/24/24 12:56
Dsk-H-Gidnztquejc Pept 2300 pg/ml 01/21/24 13:34
Albumin 3.0 g/dl (3.5-5.0) L 01/21/24 13:34
Physical Exam
-
Vital Signs:
Vital Signs
Temp Pulse Resp BP Pulse Ox
97.5 F 98 18 116/76 96
01/24/24 15:00 01/24/24 15:00 01/24/24 15:00 01/24/24 15:00 01/24/24 15:00
Cardiovascular:: Regular rate and rhythm
Respiratory:: Bilateral: Coarse
Lung Excursion:: Normal
Abdomen:: Nontender and Soft
Bowel Sounds:: Normal
Extremity Edema:: None: Bilateral:
Krishnamurthy Catheter: No
[2024-01-24] MEDS: SAMSCA 15 MG PO (17:10)
[2024-01-24] MEDS: LIPITOR 40 MG PO (17:47)
[2024-01-24 19:40] LABS: Glu-6-Phosphate Dehydrogenase 22.2 U/g Hb (9.9-16.6)
[2024-01-25 03:38] VITALS: BP 109/72
[2024-01-25 05:40] LABS: % Basophils 0.3 % (0-2); % Immature Granulocytes 0.8 % (0-0.5); % Lymphocytes 4.3 % (20.5-51.1); % Monocytes 3.7 % (1.7-9.3); % Neutrophils 89.9 % (42.2-75.2); Absolute Eosinophils 0.1 10^3/uL (0-0.7); Absolute Immature Granulocytes 0.1 10^3/uL (0-0.05); Absolute Lymphocytes 0.3 10^3/uL (1.2-3.4); Absolute Monocytes 0.2 10^3/uL (0.1-0.6); Absolute Neutrophils 5.6 10^3/uL (1.4-6.5); Mean Corp Hgb Conc. 33.7 g/dL (33.0-37.0); Mean Corpuscular Hgb 32.4 pg (27.0-31.0); Mean Corpuscular Volume 96.2 fL (80.0-94.0); Mean Platelet Volume 11.6 fL (7.4-10.4); Nucleated Red Blood Cells % 0 % (-); Platelet Count 72 10^3/uL (130-400); Red Blood Cell Count 2.13 10^6/uL (4.70-6.10); Red Cell Dist. Width 19.9 % (11.5-14.5); White Blood Cell Count 6.2 10^3/uL (4.8-10.8)
[2024-01-25 05:46] LABS: Hematocrit 20.5 % (39.0-52.0); Hemoglobin 6.9 g/dL (13.0-18.0)
[2024-01-25] MEDS: SYNTHROID 75 MCG PO (05:52)
[2024-01-25 05:56] LABS: Blood Urea Nitrogen 42 mg/dl (9-20); Calcium 8.5 mg/dl (8.4-10.2); Carbon Dioxide 23 mmol/L (22-30); Chloride 101 mmol/L (98-107); Estimated Creatinine Clearance 76 ml/min; Glucose 93 mg/dl (70-99); Magnesium 2.1 mg/dl (1.6-2.3); Potassium 4.4 mmol/L (3.5-5.1); Sodium 128 mmol/L (135-145); eGFR > 60.00
[2024-01-25 06:00] VITALS: BMI 23.3
[2024-01-25 07:00] VITALS: BP 116/70
--- NOTE | 2024-01-25 08:10 | CON.MD ---
Consultation - Medical
-
Podiatry consult for ulcer and dry gangrene, right foot. Patient was hospitalized recently for several weeks due to pneumonia, discharged then re admitted with low blood pressure. He denies any history of treatment for PAD and states that the
wounds on his right toes 'come and go due to bullous pemphigoid'. States no discomfort but has feeling in the toes. Immediately states that 'nothing needs to be done since he has dealt with this for a long time'.
PMH includes Bullous Pemphigoid, Warm hemolytic Anemia, Chronic left Pleural Effusion, Chronic Hypotension, Stroke.
On exam he states no discomfort and is awake and alert in no distress. Pedal pulses DP are palpable bilaterally 2/4 and diminished PT. Mild edema noted right LE with mottled appearance to skin. Dorsal hallux with 2 cm ulcer stable edges and
fibrotic base with no malodor or drainage. 2,3 digits with dry gangrene to the distal 2/3 well demarcated with no drainage at the wound margin. 4th and 5th toes with superficial ulcerations on digits and interspaces with mild drainage and no
associated cellulitis. Left side with no open lesions or ulcerations.
NIVS show ABIs normal bilaterally, but right TBI 0.15
Impression/Plan
Gangrene right 2,3 toes with ulceration of 1,4,5 toes as well
-ABIs WNL but right TBI significantly reduced
-Note CTA aorta with runoff scheduled
-No cellulitis noted and no acute change to wet gangrene present at this time
-Suggest wound care consult for light dressing to separate toes and prevent infection
-No immediate surgical intervention needed at this time. When the possibility of surgery was mentioned, patient was adamantly opposed, stating 'the scabs always fall off and the toes are fine'
-Original blisters may have been cause by Bullous Pemphigoid as patient suggests, but explained that lack of blood flow to the toes has caused 2,3 toe mummification which cannot be reversed. Discussed high risk of infection if not addressed
Possible PJP pneumonitis
Drug rash due to Bactrim allergy
Warm autoimmune hemolytic anemia
[2024-01-25] MEDS: MIRALAX 17 GRAMS PO (09:18)
[2024-01-25] MEDS: URE-NA 15 GRAMS PO ×2 (09:18→20:44)
[2024-01-25] MEDS: TRIMPEX 400 MG PO ×3 (09:19→20:44)
[2024-01-25] MEDS: DAPSONE 100 MG PO (09:19)
[2024-01-25] MEDS: ASPIR LOW (ENTERIC COATED) 81 MG PO (09:19)
[2024-01-25] MEDS: DELTASONE 50 MG PO (09:19)
[2024-01-25] MEDS: PROTONIX 40 MG PO (09:19)
[2024-01-25] MEDS: SODIUM CHLORIDE 1 GRAM PO ×2 (09:19→20:44)
[2024-01-25] MEDS: HEPARIN 5000 UNITS SC ×2 (09:20→20:44)
--- NOTE | 2024-01-25 09:54 | W.PN.ONC ---
Addendum entered and electronically signed by Vincenzo Ortega MD 01/25/24 12:19:
Hematology Addendum:
Patient seen and evaluated and agree w/ ELEMENT[employer] READING SPECIALIST note and plan as outlined
-AIHA - refractor to steroids and rituximab
-hemoglobin 6.9g/dl today - awaiting matched PRBCs - pt clinically stable
-await bone marrow results
-follow CBC
Will continue to follow with you.
Original Note:
Today's Communication / Plan
-
With frequent transfusion requirements and difficult access, patient may benefits from a port if agreeable
Continue hydrocortisone 50mg q6h (=Pred 50mg/d)
Convert to oral prednisone once daily when stable, 50mg/d, to be tapered quite slowly
CBC with diff daily
01/24 Hgb 6.9, Hct 20.5, PLT 72
Transfuse as needed to maintain Hgb >7.5, PLT >20
Transfuse 2units PRBCs today
If recurrent substantial hemolysis, would consider splenectomy as steroids and Rituxan have been ineffective for him.
01/14 Await BMbx report
Reviewed with pathology, Dr. Landeros and Dr. Ortega
Dapsone for suspected PCP, pulm status much improved/ID following
Supportive care
Emotional support
PT/OT, OOB as tolerated
We will follow closely.
Impression
Impression
Autoimmune hemolytic anemia, treatment-refractory
Hypotension
hyponatremia
Rash, suspect related to Bactrim
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
Weakness/fatigue
Thrombocytopenia
Subjective/Objective
Subjective/Objective
patient reports he is quite fatigued and weak. patient and spouse are frustrated/anxious and requesting additional conversation with Dr. Ortega.
Vital Signs:
Vital Signs
Temp Pulse Resp BP Pulse Ox
97.9 F 96 18 116/70 94
01/25/24 03:38 05/24/24 07:00 01/25/24 07:00 01/25/24 07:00 01/25/24 07:00
physical exam unchanged.
Lab Results:
Laboratory Data
WBC 6.2 10^3/uL (4.8-10.8) 01/25/24 05:00
Hgb 6.9 g/dL (13.0-18.0) L* 01/25/24 05:00
Plt Count 72 10^3/uL (130-400) L 01/25/24 05:00
eGFR > 60.00 01/25/24 05:00
[2024-01-25 11:00] VITALS: BP 108/66
--- NOTE | 2024-01-25 11:42 | W.PN.NEPH.PH ---
Today's Communication / Plan
-
samsca
Assessment/Plan
-
Assessment:
Hyponatremia acute on chronic
anemia, hemolytic
bilateral pulmoanry infiltrates
Diffuse blanching macular rash
ischemic stroke
Hypotension
hypothyrodism
Plan:
Continue salt tablets and urea
Lasix 20 mg twice daily held for now
continue with fluid restriction.
Serial BMP
wean steroids
abx for PJP per ID
samsca again today
transfuse
-
-
Date of Service: January 25, 2024
CC / HPI / ROS
-
Chief Complaint:
hyponatremia
History of Present Illness:
Na up to 128 s/p samsca
BP improving on IV steroids
rash improving on steroids
Hgb down to 6.9
Review of Systems:
no CP/SOB
constipated
Labs
-
Labs:
WBC 6.2 10^3/uL (4.8-10.8) 01/25/24 05:00
RBC 2.13 10^6/uL (4.70-6.10) L 01/25/24 05:00
Hgb 6.9 g/dL (13.0-18.0) L* 01/25/24 05:00
Hct 20.5 % (39.0-52.0) L* 01/25/24 05:00
Plt Count 72 10^3/uL (130-400) L 01/25/24 05:00
Sodium 128 mmol/L (135-145) L 01/25/24 05:00
Potassium 4.4 mmol/L (3.5-5.1) 01/25/24 05:00
Chloride 101 mmol/L (98-107) 01/25/24 05:00
Carbon Dioxide 23 mmol/L (22-30) 01/25/24 05:00
BUN 42 mg/dl (9-20) H 01/25/24 05:00
Creatinine 0.8 mg/dL (0.7-1.3) 01/25/24 05:00
eGFR > 60.00 01/25/24 05:00
Glucose 93 mg/dl (70-99) 01/25/24 05:00
Calcium 8.5 mg/dl (8.4-10.2) 01/25/24 05:00
Aup-A-Gonqvywuwyr Pept 2300 pg/ml 01/21/24 13:34
Albumin 3.0 g/dl (3.5-5.0) L 01/21/24 13:34
Physical Exam
-
Vital Signs:
Vital Signs
Temp Pulse Resp BP Pulse Ox
97.9 F 96 18 116/70 95
01/25/24 03:38 01/25/24 07:00 01/25/24 07:00 01/25/24 07:00 01/25/24 08:00
Cardiovascular:: Regular rate and rhythm
Respiratory:: Bilateral: Coarse
Lung Excursion:: Normal
Abdomen:: Nontender and Soft
Bowel Sounds:: Normal
Extremity Edema:: None: Bilateral:
[2024-01-25] MEDS: SAMSCA 15 MG PO (12:52)
--- NOTE | 2024-01-25 12:54 | W.PN.UPDATE ---
Update Note
Progress Note Update
CT angiogram reviewed images. No evidence of occlusive disease in right lower extremity arteries. Iliac system and femoral/popliteal arteries widely patent with potentially mild plaque in mid to distal SFA and popliteal artery. But no high-grade
stenoses. Three-vessel runoff noted with patent dorsalis pedis and posterior tibial artery to the foot. Therefore I suspected low toe pressures likely due to small vessel disease. Not really much I can offer here from a revascularization
standpoint. If wounds not healing, as noted in my prior note he would require TMA due to small vessel disease. Will sign off here. Please call with questions.
--- NOTE | 2024-01-25 14:09 | W.PN.ID1 ---
Date of Service
Date of Service: January 25, 2024
Today's Communication
Continue dapsone/trimethoprim.
Assessment / Plan
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
-Recent widespread bilateral interstitial lung opacities/hypoxemia did not respond to Vanco/Zosyn and diuretic
-risk factor for PJP - prolonged high dose steroid >1 month
- s/p bronch/BAL 01/08. Cx usual resp torri. + yeast which is not significant
BAL path: silver stain negative for Pneumocystis organisms
However BAL silver stain for PJP has low sensitivity (80's) in non-HIV immunosuppressed host.
- He is responding well to empiric PJP tx, weaned off oxygen; Repeat CT chest (01/20) significant improvement of widespread airspace disease
- s/p BactrimDS 2 q 8h x 12 d -> dc'd due to drug rash.
-Continue with Dapsone 100mg po daily and trimethoprim 400mg po tid for remaining course through 01/29/24.
G6PD normal
- After PJP treatment, need PJP secondary prophylaxis with atovaquone 1500mg daily while on prednisone 20mg or higher/day
# Drug rash from Bactrim.
-Resolving off the drug.
# Dry gangrene right 2, 3 toes
- Arterial duplex normal
- CT angiogram no significant stensis
- Vascular suspect small vessel disease
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
- s/p BM biopsy- result pending
-Hem/Onc following
#Additional Past Medical History:
Hypertension
Recurrent left pleural effusion
SVT
Hypothyroidism
Chronic SIADH
CVA
BP
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
Bullous pemphigoid
Fatty liver
Diverticulosis
Chronic lower extremity edema
Vertebral fracture
Chief Complaint
-: Other (Rash)
Subjective / Review of Systems
No new complaints.
Vital Signs / Physical Exam
Vital Signs
Vital Signs
Temp Pulse Resp BP Pulse Ox
97.6 F 95 18 108/66 100
01/25/24 11:00 01/25/24 11:00 01/25/24 11:00 01/25/24 11:00 01/25/24 11:00
Physical Exam
Constitutional: No Acute Distress
Skin: Rash (Resolving)
Wound: Other (Right 2,3 toes dry gangrene)
Objective Data
Lab Data
Lab Results
01/25/24 05:00
01/25/24 05:00
Estimated Creat Clear 76 ml/min 01/25/24 05:00
Lactic Acid Cancelled 01/21/24 17:45
Total Bilirubin 1.3 mg/dl (0.2-1.3) 01/21/24 13:34
AST 26 U/L (17-59) 01/21/24 13:34
ALT 32 U/L (0-50) 01/21/24 13:34
Alkaline Phosphatase 109 U/L (38-126) 01/21/24 13:34
Most recent labs reviewed.
Micro Results:
01/21/24 14:03 Blood Culture - Preliminary
Blood/Venous No Growth in 4 days- Final report to follow
01/21/24 21:49 Blood Culture - Preliminary
Blood/Venous No Growth in 72 hours- Final report to follow
01/21/[address]: No CT evidence for pulmonary embolism. No aortic dissection. Significant improvement in widespread bilateral airspace disease seen on the prior CT scan 2.5 weeks ago. Persistent airspace disease as outlined above. No new area of
acute airspace process.
[2024-01-25] MEDS: LIPITOR 40 MG PO (18:11)
[2024-01-25 19:10] VITALS: BP 111/73
--- NOTE | 2024-01-25 20:42 | W.PN.HOSP.TC ---
Today's Communication/Plan
-
PRBC blood products ordered -- hopefully will be ready soon
Morning labs
Continue antibiotics
Continue prednisone
Prevention of right toes wounds infection. Also appreciate podiatry and vascular input regarding right toes.
Assessment / Plan
Assessment / Plan
Physical Exam
General: Not in acute distress
HEENT: Normocephalic
Respiratory: Coarse breath sounds bilateral bases
Cardiac: S1/S2 and Regular Rhythm. Regular Rate.
GI: Soft and Non Tender. Positive bowel sounds.
Skin: Other (Maculopapular rash noted on entire back, upper chest and faintly on bilateral lower extremities)
Neuro: Awake, Alert, Oriented and Nonfocal/grossly intact
Assessment/Plan
Acute on Chronic Hyponatremia, with possible component of SIADH
-Nephrology consulted, recommendations appreciated
-Status post 3% sodium IV fluids
-Continue oral sodium tabs and urea in AM
-Continue daily PO fluid restriction
-Samsca as per nephrology
Diffuse Rash, possible drug reaction to Bactrim vs Transfusion Reaction following PRBCs given on January 18
-Consulted Infectious Disease, recommendations appreciated
-Consult Hematology
-Hold Bactrim as rash suspected to be due to Bactrim
-Continue Benadryl prn
-Stress dose steroids--previously changed Hydrocortisone to Prednisone 50 mg per day
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
Recent Widespread interstitial pneumonitis with acute hypoxic respiratory insufficiency -> off O2.
Immunocompromised State
-Now on room air
-Replace Bactrim (day ) with Dapsone 100mg po daily plus trimethoprim 400mg po tid for remaining course through 01/29/24. G6PD normal.
-After PJP treatment, need PJP secondary prophylaxis with atovaquone 1500mg daily while on prednisone 20mg or higher/day
-Appreciate ID evaluation and recommendations
Hypotension - IMPROVED
Hyponatremia
-Hold Lasix and Metoprolol due to hypotension
-Status post IV hydrocortisone
-Now on oral prednisone, 50mg/d, to be tapered slowly
-Monitor BP closely
-Spoke with endocrinology on-call, adrenal insufficiency is unlikely in this case since patient was already on Prednisone 30 mg daily at home
-Appreciate nephrology evaluation and recommendations
-Samsca as per nephrology
Gangrene right 2,3 toes with ulceration of 1,4,5 toes as well
-Discussed case on January 22, 2024 with Jessica Mo from wound care
-Ordered DENTON/TBI with severely low right sided TBI
-Consulted vascular surgery, recommendations appreciated: not really much vascular surgery can offer here from a revascularization standpoint - if wounds not healing, he would require TMA due to small vessel disease.
-Consulted podiatry, recommendations appreciated: no immediate surgery from podiatry standpoint at this time
-Wound care consult for light dressing to separate toes and prevent infection
Leukocytosis and Elevated Procalcitonin - No clear source of infection
-Chest CT shows improved airspace disease compared to prior
-Patient received doses of vancomycin and Zosyn in ED - ID suggested holding further antibiotics
-Await blood cultures
Elevated Troponin, suspect Non-Ischemic Myocardial Injury insetting of hypotension
-Continue to trend troponin
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
-Consult Hematology
-Hgb stable following transfusion on January 18
-Monitor CBC closely -- Bactrim likely caused rash, can also cause marrow suppression, and hemolytic anemia; G6PD testing pending
-Ordered 2 units PRBC as Hgb dropped to 6.9 on January 25, 2024
Recent Neutropenia resolved after TBO-filgrastim; s/p BM bx 01/15/24
Hypothyroidism
-Continue Synthroid
Hx Left Occipital Stroke
-Continue aspirin
-Continue atorvastatin
Hx SVT
-Metoprolol on hold due to hypotension
-Monitor on Telemetry
History of Recurrent left pleural effusion
SVT
Chronic SIADH
CVA
BP
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
Bullous pemphigoid
Fatty liver
Diverticulosis
Chronic lower extremity edema
Vertebral fracture
DVT prophylaxis: Heparin Subq
Code Status: DNR confirmed with patient at time of admission
Anticipated Discharge: > 48 hours
Subjective/Interval History
-
Date of Service: January 25, 2024
Patient was seen and examined. He reported no new symptoms. He would like to make sure no one takes away his water cups for drinking. Discussed with nurse.
Objective Data
-
Vital Signs:
Vital Signs
Temp Pulse Resp BP Pulse Ox
98.1 F 93 20 111/73 98
01/25/24 19:10 01/25/24 19:10 01/25/24 19:10 01/25/24 19:10 01/25/24 19:10
I&O
01/24/24 01/25/24 01/26/24
06:59 06:59 06:59
Intake Total 940 / 940 1800 / 1800 1080 / 1080
Output Total 1000 / 1000 530 / 530 550 / 550
Balance -60 / -60 1270 / 1270 530 / 530
[2024-01-25 23:18] VITALS: BP 112/68
[2024-01-26] VITALS (10 sets, daily range): BP systolic 108–131; BP diastolic 70–80; BMI 24.3
[2024-01-26 04:48] LABS: % Basophils 0.2 % (0-2); % Immature Granulocytes 1.3 % (0-0.5); % Lymphocytes 5.3 % (20.5-51.1); % Monocytes 4.6 % (1.7-9.3); % Neutrophils 88.6 % (42.2-75.2); Absolute Immature Granulocytes 0.1 10^3/uL (0-0.05); Absolute Lymphocytes 0.3 10^3/uL (1.2-3.4); Absolute Monocytes 0.3 10^3/uL (0.1-0.6); Absolute Neutrophils 4.8 10^3/uL (1.4-6.5); Mean Corp Hgb Conc. 32.8 g/dL (33.0-37.0); Mean Corpuscular Hgb 31.8 pg (27.0-31.0); Mean Platelet Volume 11.6 fL (7.4-10.4); Nucleated Red Blood Cells % 0.4 % (-); Platelet Count 81 10^3/uL (130-400); Red Blood Cell Count 1.98 10^6/uL (4.70-6.10); White Blood Cell Count 5.4 10^3/uL (4.8-10.8)
[2024-01-26 05:09] LABS: Blood Urea Nitrogen 37 mg/dl (9-20); Calcium 8.6 mg/dl (8.4-10.2); Carbon Dioxide 23 mmol/L (22-30); Chloride 102 mmol/L (98-107); Estimated Creatinine Clearance 76 ml/min; Glucose 112 mg/dl (70-99); Magnesium 2.2 mg/dl (1.6-2.3); Potassium 4.5 mmol/L (3.5-5.1); Sodium 129 mmol/L (135-145); eGFR > 60.00
[2024-01-26 05:18] LABS: Hematocrit 19.2 % (39.0-52.0); Hemoglobin 6.3 g/dL (13.0-18.0)
[2024-01-26] MEDS: SYNTHROID 75 MCG PO (05:49)
[2024-01-26] MEDS: SODIUM CHLORIDE 1 GRAM PO ×2 (09:13→20:55)
[2024-01-26] MEDS: MIRALAX 17 GRAMS PO (09:15)
[2024-01-26] MEDS: URE-NA 15 GRAMS PO ×2 (09:16→20:55)
[2024-01-26] MEDS: HEPARIN 5000 UNITS SC ×2 (09:16→20:55)
[2024-01-26] MEDS: PROTONIX 40 MG PO (09:16)
[2024-01-26] MEDS: DELTASONE 50 MG PO (09:18)
[2024-01-26] MEDS: ASPIR LOW (ENTERIC COATED) 81 MG PO (09:18)
[2024-01-26] MEDS: TRIMPEX 400 MG PO ×3 (09:18→20:58)
[2024-01-26] MEDS: DAPSONE 100 MG PO (09:18)
--- NOTE | 2024-01-26 10:37 | W.PN.ONC ---
Today's Communication / Plan
-
transfuse 1 unit PRBCs today w/ premedication
f/u CBC in am
plan for additional unit PRBCs tomorrow - pending CBC results
Impression
Impression
Autoimmune hemolytic anemia, treatment-refractory
Hypotension
hyponatremia
Rash, suspect related to Bactrim
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
Weakness/fatigue
Thrombocytopenia
Plan
Plan
1. AIHA - hemoglobin 6.3g/dl
-3 units of PRBCs - least incompatible - have been acquired by blood bank
-as per blood bank pt has received 1+ incompatible blood previously w/o issue
-will transfuse 1 unit of least incompatible blood
-premedicate w/ dexamethasone 10mg x1, benedyl and tylenol
-plan for 2nd unit PRBCs tomorrow if tolerates - pending f/u CBC
-check CBC in am
-await 01/14 bone marrow biopsy result
Subjective/Objective
Subjective/Objective
feels tired - no SOB, chest pain, or palpitations
Vital Signs:
Vital Signs
Temp Pulse Resp BP Pulse Ox
97.6 F 91 16 131/74 96
01/26/24 03:15 01/26/24 07:00 01/26/24 07:00 01/26/24 07:00 01/26/24 10:12
Lab Results:
Laboratory Data
WBC 5.4 10^3/uL (4.8-10.8) 01/26/24 04:22
Hgb 6.3 g/dL (13.0-18.0) L* 01/26/24 04:22
Plt Count 81 10^3/uL (130-400) L 01/26/24 04:22
eGFR > 60.00 01/26/24 04:22
Exam: unchanged
--- NOTE | 2024-01-26 10:53 | W.PN.NEPH.PH ---
Today's Communication / Plan
-
samsca
Assessment/Plan
-
Assessment:
Hyponatremia acute on chronic
anemia, hemolytic
bilateral pulmoanry infiltrates
Diffuse blanching macular rash
ischemic stroke
Hypotension
hypothyrodism
Plan:
Continue salt tablets and urea
Lasix 20 mg twice daily held for now
continue with fluid restriction.
follow BMP
wean steroids
abx for PJP per ID
samsca again today
transfuse PRBC today
-
-
Date of Service: January 26, 2024
CC / HPI / ROS
-
Chief Complaint:
hyponatremia
History of Present Illness:
Na up to 129 s/p samsca
BP stable
rash improving on steroids
Hgb down to 6.3
Review of Systems:
no CP/SOB
Labs
-
Labs:
WBC 5.4 10^3/uL (4.8-10.8) 01/26/24 04:22
RBC 1.98 10^6/uL (4.70-6.10) L 01/26/24 04:22
Hgb 6.3 g/dL (13.0-18.0) L* 01/26/24 04:22
Hct 19.2 % (39.0-52.0) L* 01/26/24 04:22
Plt Count 81 10^3/uL (130-400) L 01/26/24 04:22
Sodium 129 mmol/L (135-145) L 01/26/24 04:22
Potassium 4.5 mmol/L (3.5-5.1) 01/26/24 04:22
Chloride 102 mmol/L (98-107) 01/26/24 04:22
Carbon Dioxide 23 mmol/L (22-30) 01/26/24 04:22
BUN 37 mg/dl (9-20) H 01/26/24 04:22
Creatinine 0.8 mg/dL (0.7-1.3) 01/26/24 04:22
eGFR > 60.00 01/26/24 04:22
Glucose 112 mg/dl (70-99) H 01/26/24 04:22
Calcium 8.6 mg/dl (8.4-10.2) 01/26/24 04:22
Xrp-V-Fsrpbfohmtf Pept 2300 pg/ml 01/21/24 13:34
Albumin 3.0 g/dl (3.5-5.0) L 01/21/24 13:34
Physical Exam
-
Vital Signs:
Vital Signs
Temp Pulse Resp BP Pulse Ox
97.6 F 91 16 131/74 96
01/26/24 03:15 01/26/24 07:00 01/26/24 07:00 01/26/24 07:00 01/26/24 10:12
Cardiovascular:: Regular rate and rhythm
Respiratory:: Bilateral: Coarse
Lung Excursion:: Normal
Abdomen:: Nontender and Soft
Bowel Sounds:: Normal
Extremity Edema:: None: Bilateral:
--- NOTE | 2024-01-26 11:23 | W.PN.ID1 ---
Date of Service
Date of Service: January 26, 2024
Today's Communication
Continue dapsone/trimethoprim.
Assessment / Plan
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
-Recent widespread bilateral interstitial lung opacities/hypoxemia did not respond to Vanco/Zosyn and diuretic
-risk factor for PJP - prolonged high dose steroid >1 month
- s/p bronch/BAL 01/08. Cx usual resp torri. + yeast which is not significant
BAL path: silver stain negative for Pneumocystis organisms
However BAL silver stain for PJP has low sensitivity (80's) in non-HIV immunosuppressed host.
- He is responding well to empiric PJP tx, weaned off oxygen; Repeat CT chest (01/20) significant improvement of widespread airspace disease
- s/p BactrimDS 2 q 8h x 12 d -> dc'd due to drug rash.
-Continue with Dapsone 100mg po daily and trimethoprim 400mg po tid for remaining course through 01/29/24.
G6PD normal
- After PJP treatment, need PJP secondary prophylaxis with atovaquone 1500mg daily while on prednisone 20mg or higher/day
# Drug rash from Bactrim.
-Resolved off the drug.
# Dry gangrene right 2, 3 toes
- Arterial duplex normal
- CT angiogram no significant stensis
- Vascular suspect small vessel disease
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
- s/p BM biopsy- result pending
-Hem/Onc following
#Additional Past Medical History:
Hypertension
Recurrent left pleural effusion
SVT
Hypothyroidism
Chronic SIADH
CVA
BP
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
Bullous pemphigoid
Fatty liver
Diverticulosis
Chronic lower extremity edema
Vertebral fracture
Chief Complaint
-: Other (Rash)
Subjective / Review of Systems
Waiting for blood transfusion. Otherwise feels well.
Vital Signs / Physical Exam
Vital Signs
Vital Signs
Temp Pulse Resp BP Pulse Ox
97.6 F 91 16 131/74 96
01/26/24 03:15 01/26/24 07:00 01/26/24 07:00 01/26/24 07:00 01/26/24 10:12
Physical Exam
Constitutional: No Acute Distress and Comfortable
Pulmonary: Clear
Gastrointestinal: Soft, Non Tender and Non Distended
Neurological: AO x 3
Objective Data
Lab Data
Lab Results
01/26/24 04:22
01/26/24 04:22
Estimated Creat Clear 76 ml/min 01/26/24 04:22
Lactic Acid Cancelled 01/21/24 17:45
Total Bilirubin 1.3 mg/dl (0.2-1.3) 01/21/24 13:34
AST 26 U/L (17-59) 01/21/24 13:34
ALT 32 U/L (0-50) 01/21/24 13:34
Alkaline Phosphatase 109 U/L (38-126) 01/21/24 13:34
Most recent labs reviewed.
Micro Results:
01/21/24 21:49 Blood Culture - Preliminary
Blood/Venous No Growth in 4 days- Final report to follow
01/21/24 14:03 Blood Culture - Preliminary
Blood/Venous No Growth in 4 days- Final report to follow
01/21/[address]: No CT evidence for pulmonary embolism. No aortic dissection. Significant improvement in widespread bilateral airspace disease seen on the prior CT scan 2.5 weeks ago. Persistent airspace disease as outlined above. No new area of
acute airspace process.
[2024-01-26] MEDS: SAMSCA 15 MG PO (11:42)
--- NOTE | 2024-01-26 11:44 | W.PN.HOSP.TC ---
Today's Communication/Plan
-
Worsening anemia:
-As per blood bank patient has received 1+ incompatible blood previously w/o issue
-3 units of blood were ready on January 26, 2024 and 2 of those three units were +1 incompatible blood -- I discussed this over the phone with on-call railcar carpenter Dr. Vincenzo Ortega who advised to premedicate the patient with 10 mg intravenous
Dexamethasone, 25 mg IV Benadryl, and 650 mg PO Tylenol all at the same time, and then 30 minutes after getting these medications, the blood should be started
-No more than 1 unit of PRBC should be given on January 26, 2024
-If patient tolerates the 1 unit of PRBC on January 26, 2024, then will give the next 1 unit of PRBC on January 27, 2024
Assessment / Plan
Assessment / Plan
Physical Exam
General: Not in acute distress
HEENT: Normocephalic
Respiratory: Coarse breath sounds bilateral bases
Cardiac: S1/S2 and Regular Rhythm. Regular Rate.
GI: Soft and Non Tender. Positive bowel sounds.
Skin: Other (Maculopapular rash noted on entire back, upper chest and faintly on bilateral lower extremities)
Neuro: Awake, Alert, Oriented and Nonfocal/grossly intact
Assessment/Plan
Acute on Chronic Hyponatremia, with possible component of SIADH
-Nephrology consulted, recommendations appreciated
-Status post 3% sodium IV fluids
-Continue oral sodium tabs and urea in AM
-Continue daily PO fluid restriction
-Samsca as per nephrology
Diffuse Rash, possible drug reaction to Bactrim vs Transfusion Reaction following PRBCs given on January 18
-Consulted Infectious Disease, recommendations appreciated
-Consult Hematology
-Hold Bactrim as rash suspected to be due to Bactrim
-Continue Benadryl prn
-Stress dose steroids--previously changed Hydrocortisone to Prednisone 50 mg per day
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
Recent Widespread interstitial pneumonitis with acute hypoxic respiratory insufficiency -> off O2.
Immunocompromised State
-Now on room air
-Replace Bactrim (day 13 ) with Dapsone 100mg po daily plus trimethoprim 400mg po tid for remaining course through 01/29/24. G6PD normal.
-After PJP treatment, need PJP secondary prophylaxis with atovaquone 1500mg daily while on prednisone 20mg or higher/day
-Appreciate ID evaluation and recommendations
Hypotension - IMPROVED
Hyponatremia
-Hold Lasix and Metoprolol due to hypotension
-Status post IV hydrocortisone
-Now on oral prednisone, 50mg/d, to be tapered slowly
-Monitor BP closely
-Spoke with endocrinology on-call, adrenal insufficiency is unlikely in this case since patient was already on Prednisone 30 mg daily at home
-Appreciate nephrology evaluation and recommendations
-Samsca as per nephrology
Gangrene right 2,3 toes with ulceration of 1,4,5 toes as well
-Discussed case on January 22, 2024 with Jessica Mo from wound care
-Ordered DENTON/TBI with severely low right sided TBI
-Consulted vascular surgery, recommendations appreciated: not really much vascular surgery can offer here from a revascularization standpoint - if wounds not healing, he would require TMA due to small vessel disease.
-Consulted podiatry, recommendations appreciated: no immediate surgery from podiatry standpoint at this time
-Wound care consult for light dressing to separate toes and prevent infection
Leukocytosis and Elevated Procalcitonin - No clear source of infection
-Chest CT shows improved airspace disease compared to prior
-Patient received doses of vancomycin and Zosyn in ED - ID suggested holding further antibiotics
-Await blood cultures
Elevated Troponin, suspect Non-Ischemic Myocardial Injury insetting of hypotension
-Continue to trend troponin
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
-Consult Hematology
-Hgb stable following transfusion on January 18
-Monitor CBC closely -- Bactrim likely caused rash, can also cause marrow suppression, and hemolytic anemia; G6PD testing pending
-Ordered PRBCs as Hgb dropped to 6.9 on January 25, 2024 with further drop to 6.3 on January 26, 2024
-As per blood bank patient has received 1+ incompatible blood previously w/o issue
-3 units of blood were ready on January 26, 2024 and 2 of those three units were +1 incompatible blood -- I discussed this over the phone with on-call railcar carpenter Dr. Vincenzo Ortega who advised to premedicate the patient with 10 mg intravenous
Dexamethasone, 25 mg IV Benadryl, and 650 mg PO Tylenol all at the same time, and then 30 minutes after getting these medications, the blood should be started
-No more than 1 unit of PRBC should be given on January 26, 2024
-If patient tolerate the 1 unit of PRBC on January 26, 2024, then will give the next 1 unit on January 27, 2024
Recent Neutropenia resolved after TBO-filgrastim; s/p BM bx 01/15/24
Hypothyroidism
-Continue Synthroid
Hx Left Occipital Stroke
-Continue aspirin
-Continue atorvastatin
Hx SVT
-Metoprolol on hold due to hypotension
-Monitor on Telemetry
History of Recurrent left pleural effusion
SVT
Chronic SIADH
CVA
BP
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
Bullous pemphigoid
Fatty liver
Diverticulosis
Chronic lower extremity edema
Vertebral fracture
DVT prophylaxis: Heparin Subq
Code Status: DNR confirmed with patient at time of admission
Worsening anemia in the setting of autoimmune hemolytic anemia requiring special blood transfusion with incompatible blood and needing premedication prior to blood transfusion is a high risk encounter.
Anticipated Discharge: > 48 hours
Subjective/Interval History
-
Date of Service: January 26, 2024
Patient was seen and examined. He reported no new significant symptoms or complaints.
Objective Data
-
Labs:
Laboratory Results
01/26/24
04:22
WBC 5.4
Hgb 6.3 L*
Hct 19.2 L*
Plt Count 81 L
Sodium 129 L
Potassium 4.5
Chloride 102
Carbon Dioxide 23
BUN 37 H
Creatinine 0.8
Glucose 112 H
Calcium 8.6
Vital Signs:
Vital Signs
Temp Pulse Resp BP Pulse Ox
97.6 F 91 16 131/74 96
01/26/24 03:15 01/26/24 07:00 01/26/24 07:00 01/26/24 07:00 01/26/24 10:12
I&O
01/25/24 01/26/24 01/27/24
06:59 06:59 06:59
Intake Total 1800 / 1800 1560 / 1560
Output Total 530 / 530 1275 / 1275
Balance 1270 / 1270 285 / 285
[2024-01-26] MEDS: BENADRYL 25 MG IV (12:15)
[2024-01-26] MEDS: TYLENOL 650 MG PO (12:15)
[2024-01-26] MEDS: DECADRON 10 MG IV (12:18)
[2024-01-26] MEDS: LIPITOR 40 MG PO (18:22)
[2024-01-27] VITALS (9 sets, daily range): BP systolic 106–134; BP diastolic 63–80; BMI 24.4
[2024-01-27 04:45] LABS: % Basophils 0.2 % (0-2); % Immature Granulocytes 2.4 % (0-0.5); % Lymphocytes 6.9 % (20.5-51.1); % Monocytes 6.5 % (1.7-9.3); Absolute Immature Granulocytes 0.1 10^3/uL (0-0.05); Absolute Lymphocytes 0.3 10^3/uL (1.2-3.4); Absolute Monocytes 0.3 10^3/uL (0.1-0.6); Absolute Neutrophils 4.1 10^3/uL (1.4-6.5); Hematocrit 21.6 % (39.0-52.0); Hemoglobin 7.2 g/dL (13.0-18.0); Mean Corp Hgb Conc. 33.3 g/dL (33.0-37.0); Mean Corpuscular Hgb 31.2 pg (27.0-31.0); Mean Corpuscular Volume 93.5 fL (80.0-94.0); Mean Platelet Volume 11.5 fL (7.4-10.4); Nucleated Red Blood Cells % 0.8 % (-); Platelet Count 83 10^3/uL (130-400); Red Blood Cell Count 2.31 10^6/uL (4.70-6.10); Red Cell Dist. Width 20.4 % (11.5-14.5); White Blood Cell Count 4.9 10^3/uL (4.8-10.8)
[2024-01-27 05:08] LABS: Blood Urea Nitrogen 51 mg/dl (9-20); Calcium 8.7 mg/dl (8.4-10.2); Carbon Dioxide 22 mmol/L (22-30); Chloride 103 mmol/L (98-107); Estimated Creatinine Clearance 68 ml/min; Glucose 104 mg/dl (70-99); Magnesium 2.4 mg/dl (1.6-2.3); Potassium 4.5 mmol/L (3.5-5.1); Sodium 129 mmol/L (135-145); eGFR > 60.00
[2024-01-27] MEDS: SYNTHROID 75 MCG PO (06:19)
[2024-01-27] MEDS: TRIMPEX 400 MG PO ×3 (08:03→22:14)
[2024-01-27] MEDS: HEPARIN 5000 UNITS SC ×2 (08:03→20:55)
[2024-01-27] MEDS: DELTASONE 50 MG PO (08:03)
[2024-01-27] MEDS: DAPSONE 100 MG PO (08:03)
[2024-01-27] MEDS: SODIUM CHLORIDE 1 GRAM PO ×2 (08:03→20:54)
[2024-01-27] MEDS: ASPIR LOW (ENTERIC COATED) 81 MG PO (08:03)
[2024-01-27] MEDS: PROTONIX 40 MG PO (08:03)
[2024-01-27] MEDS: URE-NA 15 GRAMS PO ×2 (08:04→20:55)
[2024-01-27] MEDS: MIRALAX 17 GRAMS PO (08:04)
--- NOTE | 2024-01-27 09:40 | W.PN.POD ---
Today's Communication
Today's Communication
Right digits stable and dry. Continue daily dry dressings
Assessment / Plan
-
-Gangrene right 2,3 toes
TBI 0.[address] angiogram shows no high grade stenosis with DP and PT pulses patent.
Surgical intervention would require TMA but he is a poor surgical candidate due to severe anemia
As long as digits remain dry and stable, agree with daily dry dressings by Wound Care Team and watch for any progression to wet gangrene or cellulitis
Signing off, but please re consult if surgical intervention becomes warranted
-Bullous Pemphigoid
-Warm Hemolytic Anemia
-Chronic Left Pleural Effusion
-Drug rash, possibly due to Bactrim
Subjective
Objective
Temp Pulse Resp BP Pulse Ox
97.1 F 79 16 133/80 98
01/27/24 07:00 01/27/24 07:00 01/27/24 07:00 01/27/24 07:00 01/27/24 07:00
01/27/24 04:18
01/27/24 04:18
Vital Signs and Lab results were reviewed.
Physical Exam
Physical Exam
DP and PT pulses palpable bilaterally with general ruborus appearance to feet and lower legs. right 2,3 toes with dry gangrene distal 2/3. More superficial ulcerations noted dorsal 4th interspace and dorsal base of hallux. No malodor or drainage
is noted at this time. No cellulitis present.
--- NOTE | 2024-01-27 10:53 | CON.NEURO4 ---
Consultation - Neurology 4
-
CONSULTING PHYSICIAN: Susie Mc
REFERRING PHYSICIAN: Hospitalist
DICTATED BY: Suise Mc
DATE/TIME OF REQUEST: 01/27/24
DATE/TIME OF CONSULTATION: 01/27/24
Reason for Consultation: Tremor
History of Present Illness:
The patient is a 78-year-old male with a past medical history of warm hemolytic anemia, previous ischemic stroke, chronic hyponatremia presented to hospital with weakness, mild hypotension, and anemia. Neurology consulted for tremor which seem to
start in the past 2 days. Patient has not had a previous history of tremor denies any family history of tremor. He reports it is generally in the hands and bilateral and is worse with holding objects or with the hands outstretched, no tremor in
the head or neck or legs it seems. He denies history of kidney or liver problems. He developed a rash suspected due to Bactrim.
Patient has been treated with antibiotics for PCP pneumonitis and did have short course of stress dose steroids and steroid given for blood transfusion. He has been moved back to Prednisone 50 mg a day. He has been on Prednisone as chronic
medication for the anemia. Has recieved Tolvaptan for hyponatremia here in [facility].
Past Medical History: Hypothyroidism, warm autoimmune hemolytic anemia, history of ischemic stroke, hyponatremia, SVT
Surgical History: Left thoracentesis, tonsillectomy
Family History: No family history of tremor
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
Allergies: Sulfa and amlodipine
Review of Symptoms:
Patient denies any fever, headache, chest pain, shortness of breath, GI or symptoms.
Physical Exam:
Middle elderly age man appears well pleasant no distress no signs of head or neck trauma eyes are clear oropharynx is clear, rash on the distal hands and legs is seen, heart rate regular breathing unlabored abdomen soft nontender no lower extremity
edema
Neurologic Examination:
The patient is awake, alert and oriented x 3. He is able to follow commands and answer questions appropriately. There is no aphasia or dysarthria. On cranial nerve assessment, pupils are 3 mm bilateral, round and reactive to light and
accommodation. Visual mancia are full. Extraocular movements are intact. Facial sensations are intact and bilaterally symmetrical, there is no facial asymmetry. Hearing is intact bilaterally to normal conversation volume. Tongue palate and uvula
are midline. Sternocleidomastoid strengths are full bilaterally. Motor strengths are 5/5 bilateral upper and lower extremities on medical research [place] scale. No rigidity or parkinsonism. Postural and action tremor noted bilaterally which is
symmetric. Deep tendon reflexes are 2+ bilateral upper and lower extremities and Babinski is absent bilaterally. Intact light touch throughout. No ataxia on finger to nose.
Impressions
Postural and action tremor very likely due to medication and/or metabolic derangements. Patient did have some stress dose steroids as well as steroids given for blood transfusion that can contribute. Additional metabolic derangements with
pneumonia, hyponatremia and anemia could be combining to produce the tremor. Metoprolol being held is a possible contributor. Other current medications like the antibiotics do not seem highly offensive for causing the tremor. No evidence for
Parkinson's and no history of essential tremor like issues.
Recommendations:
1. Minimize extra doses of steroids as able
2. Follow blood pressure and heart rate and consider restarting metoprolol at low-dose which may help with tremor symptoms
3. Check liver function and ammonia
4. Continue to follow kidney function and hyponatremia
5. Anticipate improvement in tremor as his metabolic issues improve and as the need for acute medication changes resolve
Discussed patient care with: Patient and his , hospitalist
--- NOTE | 2024-01-27 11:22 | W.PN.NEPH.PH ---
Today's Communication / Plan
-
serologies
Assessment/Plan
-
Assessment:
Hyponatremia acute on chronic
anemia, hemolytic
bilateral pulmoanry infiltrates
Diffuse blanching macular rash
ischemic stroke
Hypotension
hypothyrodism
Plan:
Continue salt tablets and urea
Lasix 20 mg twice daily held for now
continue with fluid restriction.
follow BMP
wean steroids
abx for PJP per ID
no samsca today
transfuse PRBC prn
check serologies. may need to get skin biopsy
-
-
Date of Service: January 27, 2024
CC / HPI / ROS
-
Chief Complaint:
hyponatremia
History of Present Illness:
Na stable 129 s/p samsca
BP stable
rash seems worse
Hgb 7,2 with PRBC
Review of Systems:
no CP/SOB
Labs
-
Labs:
WBC 4.9 10^3/uL (4.8-10.8) 01/27/24 04:18
RBC 2.31 10^6/uL (4.70-6.10) L 01/27/24 04:18
Hgb 7.2 g/dL (13.0-18.0) L 01/27/24 04:18
Hct 21.6 % (39.0-52.0) L 01/27/24 04:18
Plt Count 83 10^3/uL (130-400) L 01/27/24 04:18
Sodium 129 mmol/L (135-145) L 01/27/24 04:18
Potassium 4.5 mmol/L (3.5-5.1) 01/27/24 04:18
Chloride 103 mmol/L (98-107) 01/27/24 04:18
Carbon Dioxide 22 mmol/L (22-30) 01/27/24 04:18
BUN 51 mg/dl (9-20) H 01/27/24 04:18
Creatinine 0.9 mg/dL (0.7-1.3) 01/27/24 04:18
eGFR > 60.00 01/27/24 04:18
Glucose 104 mg/dl (70-99) H 01/27/24 04:18
Calcium 8.7 mg/dl (8.4-10.2) 01/27/24 04:18
Ypm-T-Qqtxwutdzhx Pept 2300 pg/ml 01/21/24 13:34
Albumin 3.0 g/dl (3.5-5.0) L 01/21/24 13:34
Physical Exam
-
Vital Signs:
Vital Signs
Temp Pulse Resp BP Pulse Ox
97.1 F 79 16 133/80 98
01/27/24 07:00 01/27/24 07:00 01/27/24 07:00 01/27/24 07:00 01/27/24 08:00
Cardiovascular:: Regular rate and rhythm
Respiratory:: Bilateral: Coarse
Lung Excursion:: Normal
Abdomen:: Nontender and Soft
Bowel Sounds:: Normal
Extremity Edema:: None: Bilateral:
Other Findings::
macular blanching diffuse rash
[2024-01-27 12:02] LABS: Ammonia < 9 umol/L (9-30)
[2024-01-27 12:18] LABS: Anti Streptolysin Negative (Negative)
--- NOTE | 2024-01-27 12:20 | W.PN.HOSP.TC ---
Addendum entered and electronically signed by Van Palacios MD 01/27/24 19:13:
Patient has oral thrush involving the lips and tongue. I will order Fluconazole now -- EKG done with acceptable QTc. Spoke with hematology and ID and updated them about this. Will need EKG monitoring to ensure no prolonged QTc while on Fluconazole.
Original Note:
Today's Communication/Plan
-
Transfuse second unit of blood today (including pretreatment)
Tremors likely multifactorial including but not limited to steroids
Assessment / Plan
Assessment / Plan
Physical Exam
General: Not in acute distress
HEENT: Normocephalic
Respiratory: Coarse breath sounds bilateral bases
Cardiac: S1/S2 and Regular Rhythm. Regular Rate.
GI: Soft and Non Tender. Positive bowel sounds.
Skin: Other (Maculopapular rash noted on entire back, upper chest and faintly on bilateral lower extremities)
Neuro: Awake, Alert, Oriented and Nonfocal/grossly intact
Assessment/Plan
Acute on Chronic Hyponatremia, with possible component of SIADH
-Nephrology consulted, recommendations appreciated
-Status post 3% sodium IV fluids
-Continue oral sodium tabs and urea in AM
-Continue daily PO fluid restriction
-Samsca as per nephrology
Diffuse Rash, possible drug reaction to Bactrim vs Transfusion Reaction following PRBCs given on January 18
-Consulted Infectious Disease, recommendations appreciated
-Consult Hematology
-Hold Bactrim as rash suspected to be due to Bactrim
-Continue Benadryl prn
-Stress dose steroids--previously changed Hydrocortisone to Prednisone 50 mg per day
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
Recent Widespread interstitial pneumonitis with acute hypoxic respiratory insufficiency -> off O2.
Immunocompromised State
-Now on room air
-Replace Bactrim (day ) with Dapsone 100mg po daily plus trimethoprim 400mg po tid for remaining course through 01/29/24. G6PD normal.
-After PJP treatment, need PJP secondary prophylaxis with atovaquone 1500mg daily while on prednisone 20mg or higher/day
-Appreciate ID evaluation and recommendations
Postural and action tremor
-Neurology consulted, recommendations appreciated
-Very likely due to medication and/or metabolic derangements, including prednisone
-Monitor blood pressure and heart rate and consider restarting metoprolol at low-dose which may help with tremor symptoms
-Check liver function and ammonia test
-Hopefully improvement in tremor as patient's metabolic issues improve and as the need for acute medication changes resolve
Hypotension - IMPROVED
Hyponatremia
-Hold Lasix and Metoprolol due to hypotension
-Status post IV hydrocortisone
-Now on oral prednisone, 50mg/d, to be tapered slowly
-Monitor BP closely
-Spoke with endocrinology on-call, adrenal insufficiency is unlikely in this case since patient was already on Prednisone 30 mg daily at home
-Appreciate nephrology evaluation and recommendations
-Fluid restriction
-Samsca as per nephrology
Gangrene right 2,3 toes with ulceration of 1,4,5 toes as well
-Discussed case on January 22, 2024 with Jessica Mo from wound care
-Ordered DENTON/TBI with severely low right sided TBI
-Consulted vascular surgery, recommendations appreciated: not really much vascular surgery can offer here from a revascularization standpoint - if wounds not healing, he would require TMA due to small vessel disease.
-Consulted podiatry, recommendations appreciated: no immediate surgery from podiatry standpoint at this time
-Wound care consult for light dressing to separate toes and prevent infection
Leukocytosis and Elevated Procalcitonin - No clear source of infection
-Chest CT shows improved airspace disease compared to prior
-Patient received doses of vancomycin and Zosyn in ED - ID suggested holding further antibiotics
-Await blood cultures
Elevated Troponin, suspect Non-Ischemic Myocardial Injury insetting of hypotension
-Continue to trend troponin
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
-Consult Hematology
-Hgb stable following transfusion on January 18
-Monitor CBC closely -- Bactrim likely caused rash, can also cause marrow suppression, and hemolytic anemia; G6PD testing pending
-Ordered PRBCs as Hgb dropped to 6.9 on January 25, 2024 with further drop to 6.3 on January 26, 2024
-As per blood bank patient has received 1+ incompatible blood previously w/o issue
-3 units of blood were ready on January 26, 2024 and 2 of those three units were +1 incompatible blood -- I discussed this over the phone with on-call habilitation training specialist Dr. Vincenzo Ortega who advised to premedicate the patient with 10 mg intravenous
Dexamethasone, 25 mg IV Benadryl, and 650 mg PO Tylenol all at the same time, and then 30 minutes after getting these medications, the blood should be started
-Patient received 1 unit of PRBC on January 26, 2024 with the above pretreatment
-2nd unit of PRBC on January 27, 2024 with pretreatment
Recent Neutropenia resolved after TBO-filgrastim; s/p BM bx 01/15/24
Hypothyroidism
-Continue Synthroid
History of Left Occipital Stroke
-Continue aspirin
-Continue atorvastatin
History of SVT
-Metoprolol on hold due to hypotension
-Monitor on Telemetry
History of Recurrent left pleural effusion
SVT
Chronic SIADH
CVA
BP
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
Bullous pemphigoid
Fatty liver
Diverticulosis
Chronic lower extremity edema
Vertebral fracture
DVT prophylaxis: Heparin Subq
Code Status: DNR confirmed with patient at time of admission
Anticipated Discharge: > 48 hours
Subjective/Interval History
-
Date of Service: January 27, 2024
Patient was seen and examined. He reported action/intention tremors worse than yesterday. He otherwise denied any other new, significant symptoms or complaints.
Objective Data
-
Labs:
Laboratory Results
01/27/24
04:18
WBC 4.9
Hgb 7.2 L
Hct 21.6 L
Plt Count 83 L
Sodium 129 L
Potassium 4.5
Chloride 103
Carbon Dioxide 22
BUN 51 H
Creatinine 0.9
Glucose 104 H
Calcium 8.7
Vital Signs:
Vital Signs
Temp Pulse Resp BP Pulse Ox
97.1 F 86 14 118/70 97
01/27/24 07:00 01/27/24 11:00 01/27/24 11:00 01/27/24 11:00 01/27/24 11:00
I&O
01/26/24 01/27/24 01/28/24
06:59 06:59 06:59
Intake Total 1560 / 1560 1390 / 1390 340 / 340
Output Total 1275 / 1275 1075 / 1075
Balance 285 / 285 315 / 315 340 / 340
[2024-01-27] MEDS: TYLENOL 650 MG PO (13:15)
[2024-01-27] MEDS: DECADRON 10 MG IV (13:15)
[2024-01-27] MEDS: BENADRYL 25 MG IV (13:16)
--- NOTE | 2024-01-27 15:17 | W.PN.ONC ---
Today's Communication / Plan
-
transfuse 1 unit PRBCs
CBC in am
Impression
Impression
Autoimmune hemolytic anemia, treatment-refractory
Hypotension
hyponatremia
Rash, suspect related to Bactrim
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
Weakness/fatigue
Thrombocytopenia
Plan
Plan
1. AIHA - hemoglobin 6.3g/dl
-received 1 unit yesterday of least incompatible blood w/ premeds w/o issue
-transfuse 2nd unit PRBCs today
-check CBC in am
-await 01/14 bone marrow biopsy result
Subjective/Objective
Subjective/Objective
feels slightly better - some tremors this am, appear to have improved. No fevers.
Vital Signs:
Vital Signs
Temp Pulse Resp BP Pulse Ox
97.7 F 77 16 106/63 96
01/27/24 13:58 01/27/24 13:58 01/27/24 13:58 01/27/24 13:58 01/27/24 13:58
Lab Results:
Laboratory Data
WBC 4.9 10^3/uL (4.8-10.8) 01/27/24 04:18
Hgb 7.2 g/dL (13.0-18.0) L 01/27/24 04:18
Plt Count 83 10^3/uL (130-400) L 01/27/24 04:18
eGFR > 60.00 01/27/24 04:18
Exam: unchanged
[2024-01-27] MEDS: LIPITOR 40 MG PO (17:20)
[2024-01-27] MEDS: DIFLUCAN 150 MG PO (20:54)
[2024-01-28] VITALS (7 sets, daily range): BP systolic 107–133; BP diastolic 60–86; PULSE 105; BMI 24.8
[2024-01-28 05:09] LABS: Complement C3 74 mg/dl (88-165)
[2024-01-28 05:25] LABS: % Basophils 0.2 % (0-2); % Immature Granulocytes 2.1 % (0-0.5); % Lymphocytes 5.9 % (20.5-51.1); % Monocytes 8.9 % (1.7-9.3); % Neutrophils 82.9 % (42.2-75.2); Absolute Immature Granulocytes 0.1 10^3/uL (0-0.05); Absolute Lymphocytes 0.3 10^3/uL (1.2-3.4); Absolute Monocytes 0.4 10^3/uL (0.1-0.6); Absolute Neutrophils 3.5 10^3/uL (1.4-6.5); Hematocrit 23.4 % (39.0-52.0); Hemoglobin 7.6 g/dL (13.0-18.0); Mean Corp Hgb Conc. 32.5 g/dL (33.0-37.0); Mean Corpuscular Hgb 29.7 pg (27.0-31.0); Mean Corpuscular Volume 91.4 fL (80.0-94.0); Mean Platelet Volume 10.8 fL (7.4-10.4); Nucleated Red Blood Cells % 1.9 % (-); Platelet Count 79 10^3/uL (130-400); Red Blood Cell Count 2.56 10^6/uL (4.70-6.10); Red Cell Dist. Width 21.3 % (11.5-14.5); White Blood Cell Count 4.3 10^3/uL (4.8-10.8)
[2024-01-28 05:49] LABS: Blood Urea Nitrogen 51 mg/dl (9-20); Calcium 8.2 mg/dl (8.4-10.2); Carbon Dioxide 23 mmol/L (22-30); Chloride 101 mmol/L (98-107); Estimated Creatinine Clearance 68 ml/min; Glucose 94 mg/dl (70-99); Potassium 4.5 mmol/L (3.5-5.1); Sodium 128 mmol/L (135-145); eGFR > 60.00
[2024-01-28] MEDS: SYNTHROID 75 MCG PO (06:17)
[2024-01-28] MEDS: DIFLUCAN 150 MG PO (08:45)
[2024-01-28] MEDS: PROTONIX 40 MG PO (08:45)
[2024-01-28] MEDS: TRIMPEX 400 MG PO ×3 (08:45→21:27)
[2024-01-28] MEDS: DELTASONE 50 MG PO (08:45)
[2024-01-28] MEDS: DAPSONE 100 MG PO (08:46)
[2024-01-28] MEDS: ASPIR LOW (ENTERIC COATED) 81 MG PO (08:46)
[2024-01-28] MEDS: SODIUM CHLORIDE 1 GRAM PO ×2 (08:46→21:27)
[2024-01-28] MEDS: HEPARIN 5000 UNITS SC ×2 (08:46→21:28)
[2024-01-28] MEDS: MIRALAX 17 GRAMS PO (08:46)
[2024-01-28] MEDS: URE-NA 15 GRAMS PO ×2 (08:46→21:28)
--- NOTE | 2024-01-28 08:47 | W.PN.HOSP.TC ---
Today's Communication/Plan
-
CXR
await Bone Marrow Bx
Assessment / Plan
Assessment / Plan
Assessment/Plan
Acute on Chronic Hyponatremia, with possible component of SIADH
-Nephrology consulted, recommendations appreciated
-Status post 3% sodium IV fluids
-Continue oral sodium tabs and urea in AM
-Continue daily PO fluid restriction
-Samsca as per nephrology
Na stable at 128
Diffuse Rash, most likely drug reaction to Bactrim vs Transfusion Reaction following PRBCs given on January 18
-Consulted Infectious Disease, recommendations appreciated
-Consulted Hematology
-Stopped Bactrim due to rash
-Continue Benadryl prn
-Stress dose steroids--previously changed Hydrocortisone to Prednisone 50 mg per day
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
Recent Widespread interstitial pneumonitis with acute hypoxic respiratory insufficiency -> off O2.
Immunocompromised State
-Now on room air
-Replaced Bactrim with Dapsone 100mg po daily plus trimethoprim 400mg po tid for remaining course through 01/29/24. G6PD normal. Reviewed with Dr. Sims
-After PJP treatment, need PJP secondary prophylaxis with atovaquone 1500mg daily while on prednisone 20mg or higher/day
-Appreciate ID evaluation and recommendations
will order follow up CXR
Postural and action tremor
-Neurology consulted, recommendations appreciated
-Very likely due to medication and/or metabolic derangements, including prednisone
-Monitor blood pressure and heart rate and consider restarting metoprolol at low-dose which may help with tremor symptoms
-Checked liver function and ammonia test - nl
-Hopefully improvement in tremor as patient's metabolic issues improve and as the need for acute medication changes resolve
Hypotension - IMPROVED
Hyponatremia
-Hold Lasix and Metoprolol due to hypotension
-Status post IV hydrocortisone
-Now on oral prednisone, 50mg/d, to be tapered slowly
-Monitor BP closely
-Spoke with endocrinology on-call, adrenal insufficiency is unlikely in this case since patient was already on Prednisone 30 mg daily at home
-Appreciate nephrology evaluation and recommendations
-Fluid restriction
-Samsca as per nephrology
Gangrene right 2,3 toes with ulceration of 1,4,5 toes as well
-Discussed case on January 22, 2024 with Jessica Mo from wound care
-Ordered DENTON/TBI with severely low right sided TBI
-Consulted vascular surgery, recommendations appreciated: not really much vascular surgery can offer here from a revascularization standpoint - if wounds not healing, he would require TMA due to small vessel disease.
-Consulted podiatry, recommendations appreciated: no immediate surgery from podiatry standpoint at this time
-Wound care consult for light dressing to separate toes and prevent infection
Leukocytosis resolved and Elevated Procalcitonin - noted on 01/20 of 0.70
-Chest CT shows improved airspace disease compared to prior
-Patient received doses of vancomycin and Zosyn in ED - ID suggested holding further antibiotics
-Await blood cultures
Elevated Troponin, suspect Non-Ischemic Myocardial Injury insetting of hypotension
-Continue to trend troponin
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
-Consulted Hematology
Bone Marrow done on 01/14 pending
-Hgb 7.5-->6.9-->6.3-transfused->7.2-transfused-->7.6
-Monitor CBC closely
-Ordered PRBCs as Hgb dropped to 6.9 on January 25, 2024 with further drop to 6.3 on January 26, 2024
-As per blood bank patient has received 1+ incompatible blood previously w/o issue
-3 units of blood were ready on January 26, 2024 and 2 of those three units were +1 incompatible blood -- Was discussed over the phone with on-call consulting business developer Dr. Vincenzo Ortega who advised to premedicate the patient with 10 mg intravenous
Dexamethasone, 25 mg IV Benadryl, and 650 mg PO Tylenol all at the same time, and then 30 minutes after getting these medications, the blood should be started
-Patient received 1 unit of PRBC on January 26, 2024 with the above pretreatment
-2nd unit of PRBC on January 27, 2024 with pretreatment
Recent Neutropenia resolved after TBO-filgrastim; s/p BM bx 01/15/24
Hypothyroidism
-Continue Synthroid
History of Left Occipital Stroke
-Continue aspirin
-Continue atorvastatin
History of SVT
-Metoprolol on hold due to hypotension
-Monitor on Telemetry
History of Recurrent left pleural effusion
SVT
Chronic SIADH
CVA
BP
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
Bullous pemphigoid
Fatty liver
Diverticulosis
Chronic lower extremity edema
Vertebral fracture
DVT prophylaxis: Heparin Subq
Code Status: DNR confirmed with patient at time of admission
complex situation
Anticipated Discharge: > 48 hours
Subjective/Interval History
-
Date of Service: January 28, 2024
Awake, alert, conversant
Objective Data
-
Labs:
Laboratory Results
01/28/24
04:59
WBC 4.3 L
Hgb 7.6 L
Hct 23.4 L
Plt Count 79 L
Sodium 128 L
Potassium 4.5
Chloride 101
Carbon Dioxide 23
BUN 51 H
Creatinine 0.9
Glucose 94
Calcium 8.2 L
Vital Signs:
Vital Signs
Temp Pulse Resp BP Pulse Ox
97.8 F 69 20 133/72 97
01/28/24 03:30 01/28/24 07:00 01/28/24 07:00 01/28/24 07:00 05/27/24 07:00
I&O
01/27/24 01/28/24 01/29/24
06:59 06:59 06:59
Intake Total 1390 / 1390 1550 / 1550
Output Total 1075 / 1075 1600 / 1600
Balance 315 / 315 -50 / -50
Review of Systems
-
History Source: Patient, Physician (reviewed with Dr. Sims) and Coordinated Provider
Constitutional: Denies Fever
EENT: Reports Other (tongue pain better)
Respiratory: Denies Trouble Breathing
Cardiac: Reports No Symptoms; Denies Chest Pain
Abdomen/GI: Reports No Symptoms; Denies Abdominal Pain
Skin: Reports Rash (resolving); Denies Itching
Physical Exam
-
General: Well Developed, Well Nourished and No Apparent Distress
HEENT: Normocephalic, Atraumatic, Moist Mucous Membranes and Thrush (significantly imnproved)
Respiratory: Clear to Auscultation; Negative Wheezes, Rales or Rhonchi
Cardiac: Regular Rhythm and S1/S2
GI: Soft, Nontender and Nondistended
Musculoskeletal: No Clubbing, No Cyanosis and No Edema
Skin: Rash (maculopapular rash significantly improved)
Neuro: Awake, Alert and Oriented
--- NOTE | 2024-01-28 10:54 | W.PN.ID1 ---
Date of Service
Date of Service: January 28, 2024
Today's Communication
Last day of dapsone/trimethoprim.
Tomorrow start prophylactic atovaquone.
Assessment / Plan
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
-Recent widespread bilateral interstitial lung opacities/hypoxemia did not respond to Vanco/Zosyn and diuretic
-risk factor for PJP - prolonged high dose steroid >1 month
- s/p bronch/BAL 01/08. Cx usual resp torri. + yeast which is not significant
BAL path: silver stain negative for Pneumocystis organisms
However BAL silver stain for PJP has low sensitivity (80's) in non-HIV immunosuppressed host.
- Responded well to empiric PJP tx, weaned off oxygen; Repeat CT chest (01/20) significant improvement of widespread airspace disease
- s/p BactrimDS 2 q 8h x 12 d -> dc'd due to drug rash.
- Last day Dapsone 100mg po daily and trimethoprim 400mg po tid today (day 20 of ). OK 1 day short of PJP treatment.
G6PD normal - should not be source of hemolytic anemia from dapsone. Can dc complete meds and observe.
- Tomorrow start PJP secondary prophylaxis with atovaquone 1500mg daily while on prednisone 20mg or higher/day
# Drug rash from Bactrim.
-Resolved off the drug.
# Dry gangrene right 2, 3 toes
- Arterial duplex normal
- CT angiogram no significant stenosis
- Vascular suspect small vessel disease
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
- s/p BM biopsy- result pending
-Hem/Onc following
#Additional Past Medical History:
Hypertension
Recurrent left pleural effusion
SVT
Hypothyroidism
Chronic SIADH
CVA
BP
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
Bullous pemphigoid
Fatty liver
Diverticulosis
Chronic lower extremity edema
Vertebral fracture
Chief Complaint
-: Other (Rash)
Subjective / Review of Systems
Reports thrush improving.
No SOB.
Slight hand tremors improved today.
Vital Signs / Physical Exam
Vital Signs
Vital Signs
Temp Pulse Resp BP Pulse Ox
97.8 F 69 20 133/72 97
01/28/24 03:30 01/28/24 07:00 01/28/24 07:00 01/28/24 07:00 01/28/24 07:00
Physical Exam
Constitutional: No Acute Distress and Comfortable
Oropharyngeal: Thrush (mild on tongue)
Pulmonary: Clear
Gastrointestinal: Soft, Non Tender and Non Distended
Neurological: AO x 3
Objective Data
Lab Data
Lab Results
01/28/24 04:59
01/28/24 04:59
Estimated Creat Clear 68 ml/min 01/28/24 04:59
Lactic Acid Cancelled 01/21/24 17:45
Total Bilirubin 1.3 mg/dl (0.2-1.3) 01/21/24 13:34
AST 26 U/L (17-59) 01/21/24 13:34
ALT 32 U/L (0-50) 01/21/24 13:34
Alkaline Phosphatase 109 U/L (38-126) 01/21/24 13:34
Most recent labs reviewed.
Micro Results:
01/21/24 21:49 Blood Culture - Final
Blood/Venous No Growth - Final Report
01/21/24 14:03 Blood Culture - Final
Blood/Venous No Growth - Final Report
01/21/[address]: No CT evidence for pulmonary embolism. No aortic dissection. Significant improvement in widespread bilateral airspace disease seen on the prior CT scan 2.5 weeks ago. Persistent airspace disease as outlined above. No new area of
acute airspace process.
Care Review
Plan reviewed with: Physician (Dr. Bautista)
--- NOTE | 2024-01-28 11:08 | W.PN.NEPH.PH ---
Today's Communication / Plan
-
samsca
Assessment/Plan
-
Assessment:
Hyponatremia acute on chronic
anemia, hemolytic
bilateral pulmoanry infiltrates
Diffuse blanching macular rash
ischemic stroke
Hypotension
hypothyrodism
Plan:
Continue salt tablets and urea
Lasix 20 mg twice daily held for now
continue with fluid restriction.
follow BMP
wean steroids
abx for PJP per ID
samsca today
transfuse PRBC prn
await serologies. C3C4 low; may need to get skin biopsy
-
-
Date of Service: January 28, 2024
CC / HPI / ROS
-
Chief Complaint:
hyponatremia
History of Present Illness:
Na stable 128
BP stable
rash seems worse
Hgb 7.6
Review of Systems:
no CP/SOB
Labs
-
Labs:
WBC 4.3 10^3/uL (4.8-10.8) L 01/28/24 04:59
RBC 2.56 10^6/uL (4.70-6.10) L 01/28/24 04:59
Hgb 7.6 g/dL (13.0-18.0) L 01/28/24 04:59
Hct 23.4 % (39.0-52.0) L 01/28/24 04:59
Plt Count 79 10^3/uL (130-400) L 01/28/24 04:59
Sodium 128 mmol/L (135-145) L 01/28/24 04:59
Potassium 4.5 mmol/L (3.5-5.1) 01/28/24 04:59
Chloride 101 mmol/L (98-107) 01/28/24 04:59
Carbon Dioxide 23 mmol/L (22-30) 01/28/24 04:59
BUN 51 mg/dl (9-20) H 01/28/24 04:59
Creatinine 0.9 mg/dL (0.7-1.3) 01/28/24 04:59
eGFR > 60.00 01/28/24 04:59
Glucose 94 mg/dl (70-99) 01/28/24 04:59
Calcium 8.2 mg/dl (8.4-10.2) L 01/28/24 04:59
Abm-I-Tsxzausdajf Pept 2300 pg/ml 01/21/24 13:34
Albumin 3.0 g/dl (3.5-5.0) L 01/21/24 13:34
Physical Exam
-
Vital Signs:
Vital Signs
Temp Pulse Resp BP Pulse Ox
97.8 F 69 20 133/72 97
01/28/24 03:30 01/28/24 07:00 01/28/24 07:00 01/28/24 07:00 01/28/24 07:00
Cardiovascular:: Regular rate and rhythm
Respiratory:: Bilateral: Coarse
Lung Excursion:: Normal
Abdomen:: Nontender and Soft
Bowel Sounds:: Normal
Extremity Edema:: None: Bilateral:
Other Findings::
facial rash worse, LE rash more prominent
[2024-01-28] MEDS: SAMSCA 15 MG PO (12:00)
--- NOTE | 2024-01-28 15:05 | W.PN.ONC ---
Today's Communication / Plan
-
hemoglobin improved
follow CBC
f/u marrow results
Impression
Impression
Autoimmune hemolytic anemia, treatment-refractory
Hypotension
hyponatremia
Rash, suspect related to Bactrim
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
Weakness/fatigue
Thrombocytopenia
Plan
Plan
1. AIHA - hemoglobin improved
-7.6g/dl today - s/p 2 units PRBCs over the past 2 days
-follow CBC
-await 01/14 bone marrow biopsy result
Subjective/Objective
Subjective/Objective
feels slightly better, no SOB at rest, no fevers
Vital Signs:
Vital Signs
Temp Pulse Resp BP Pulse Ox
97.4 F 76 18 122/82 97
01/28/24 11:00 01/28/24 11:00 01/28/24 11:00 01/28/24 11:00 01/28/24 11:00
Lab Results:
Laboratory Data
WBC 4.3 10^3/uL (4.8-10.8) L 01/28/24 04:59
Hgb 7.6 g/dL (13.0-18.0) L 01/28/24 04:59
Plt Count 79 10^3/uL (130-400) L 01/28/24 04:59
eGFR > 60.00 01/28/24 04:59
Exam: unchanged
[2024-01-28] MEDS: LIPITOR 40 MG PO (17:23)
[2024-01-29] VITALS (7 sets, daily range): BP systolic 110–133; BP diastolic 60–83; PULSE 80–115; O2SAT 96; BMI 24.2
[2024-01-29 04:56] LABS: % Basophils 0.2 % (0-2); % Immature Granulocytes 3.2 % (0-0.5); % Lymphocytes 5.3 % (20.5-51.1); % Monocytes 8.7 % (1.7-9.3); % Neutrophils 82.6 % (42.2-75.2); Absolute Immature Granulocytes 0.2 10^3/uL (0-0.05); Absolute Lymphocytes 0.3 10^3/uL (1.2-3.4); Absolute Monocytes 0.5 10^3/uL (0.1-0.6); Absolute Neutrophils 4.4 10^3/uL (1.4-6.5); Hematocrit 26.6 % (39.0-52.0); Hemoglobin 8.6 g/dL (13.0-18.0); Mean Corp Hgb Conc. 32.3 g/dL (33.0-37.0); Mean Corpuscular Hgb 29.9 pg (27.0-31.0); Mean Corpuscular Volume 92.4 fL (80.0-94.0); Nucleated Red Blood Cells % 1.3 % (-); Platelet Count 86 10^3/uL (130-400); Red Blood Cell Count 2.88 10^6/uL (4.70-6.10); Red Cell Dist. Width 21.5 % (11.5-14.5); White Blood Cell Count 5.3 10^3/uL (4.8-10.8)
[2024-01-29 05:37] LABS: Blood Urea Nitrogen 51 mg/dl (9-20); Calcium 8.6 mg/dl (8.4-10.2); Carbon Dioxide 24 mmol/L (22-30); Chloride 101 mmol/L (98-107); Estimated Creatinine Clearance 68 ml/min; Glucose 86 mg/dl (70-99); Potassium 4.7 mmol/L (3.5-5.1); Sodium 130 mmol/L (135-145); eGFR > 60.00
[2024-01-29] MEDS: SYNTHROID 75 MCG PO (05:58)
--- NOTE | 2024-01-29 08:44 | W.PN.HOSP.TC ---
Addendum entered and electronically signed by Geronimo Bautista MD 01/29/24 15:06:
In review of CT scan of abd, done on 01/24, noted evidence of a perirectal abscess
will request CRS input as to management in this complex situation
Original Note:
Today's Communication/Plan
-
stop Lotrimin
will review toes with Podiatry
follow CBC
Assessment / Plan
Assessment / Plan
Assessment/Plan
Acute on Chronic Hyponatremia, with possible component of SIADH
-Nephrology consulted, recommendations appreciated
-Status post 3% sodium IV fluids
-Continue oral sodium tabs and urea in AM
-Continue daily PO fluid restriction
-Samsca as per nephrology
Na slightly better at 128-->130
Diffuse Rash, most likely drug reaction to Bactrim vs less likely Transfusion Reaction following PRBCs given on January 18
-Consulted Infectious Disease, recommendations appreciated
-Consulted Hematology
-Stopped Bactrim due to rash
-Continue Benadryl prn
-Stress dose steroids--previously changed Hydrocortisone to Prednisone 50 mg per day
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
Recent Widespread interstitial pneumonitis with acute hypoxic respiratory insufficiency -> resolved, off O2 on rm air with SaO2 97-98%
Immunocompromised State
-Now on room air
-Replaced Bactrim with Dapsone 100mg po daily plus trimethoprim 400mg po tid completed 01/28/24. G6PD normal. Reviewed with Dr. Sims. To start Atovaquone 1500 mg daily as per Dr. Sims
-After PJP treatment, need PJP secondary prophylaxis with atovaquone 1500mg daily while on prednisone 20mg or higher/day
-Appreciate ID evaluation and recommendations
CXR 01/27 - [facility]
Postural and action tremor
-Neurology consulted, recommendations appreciated
-Very likely due to medication and/or metabolic derangements, including prednisone
-Monitor blood pressure and heart rate
discussed restart metoprolol at lower-dose which may help with tremor symptoms (was on 50 mg daily, will start 25 mg daily)
-Checked liver function and ammonia test - nl
-Hopefully improvement in tremor as patient's metabolic issues improve and as the need for acute medication changes resolve
Hypotension - IMPROVED
Hyponatremia
-Hold Lasix due to hypotension
-Status post IV hydrocortisone
-Now on oral prednisone, 50mg/d, to be tapered slowly
-Monitor BP closely
-Spoke with endocrinology on-call, adrenal insufficiency is unlikely in this case since patient was already on Prednisone 30 mg daily at home
-Appreciate nephrology evaluation and recommendations
-Fluid restriction
-Samsca as per nephrology
Gangrene right 2,3 toes with ulceration of 1,4,5 toes as well
-Discussed case on January 22, 2024 with Jessica Mo from wound care
-Ordered DENTON/TBI with severely low right sided TBI
-Consulted vascular surgery, recommendations appreciated: not really much vascular surgery can offer here from a revascularization standpoint - if wounds not healing, he would require TMA due to small vessel disease.
-Consulted podiatry, recommendations appreciated: no immediate surgery from podiatry standpoint at this time. Text placed to Dr. Rojas to discuss situation
-Wound care consult for light dressing to separate toes and prevent infection
Thrush much better
will stop Fluconazole
Leukocytosis resolved and Elevated Procalcitonin - noted on 01/20 of 0.70
-Chest CT shows improved airspace disease compared to prior
-Patient received doses of vancomycin and Zosyn in ED - ID suggested holding further antibiotics
-Await blood cultures
Elevated Troponin, suspect Non-Ischemic Myocardial Injury insetting of hypotension
-Continue to trend troponin
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
-Consulted Hematology
Bone Marrow done on 01/14 pending
-Hgb 7.5-->6.9-->6.3-transfused->7.2-transfused-->7.6-->8.6
-Monitor CBC closely
-Ordered PRBCs as Hgb dropped to 6.9 on January 25, 2024 with further drop to 6.3 on January 26, 2024
-As per blood bank patient has received 1+ incompatible blood previously w/o issue
-3 units of blood were ready on January 26, 2024 and 2 of those three units were +1 incompatible blood -- Was discussed over the phone with on-call sports information director Dr. Vincenzo Ortega who advised to premedicate the patient with 10 mg intravenous
Dexamethasone, 25 mg IV Benadryl, and 650 mg PO Tylenol all at the same time, and then 30 minutes after getting these medications, the blood should be started
-Patient received 1 unit of PRBC on January 26, 2024 with the above pretreatment
-2nd unit of PRBC on January 27, 2024 with pretreatment
Recent Neutropenia resolved after TBO-filgrastim; s/p BM bx 01/15/24
Hypothyroidism
-Continue Synthroid
History of Left Occipital Stroke
-Continue aspirin
-Continue atorvastatin
History of SVT
-Metoprolol on hold due to hypotension
-Monitor on Telemetry
History of Recurrent left pleural effusion
SVT
Chronic SIADH
CVA
BP
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
Bullous pemphigoid
Fatty liver
Diverticulosis
Chronic lower extremity edema
Vertebral fracture
DVT prophylaxis: Heparin Subq
Code Status: DNR confirmed with patient at time of admission
complex situation
reviewed entire situation with in room and several additional issues out of room in front of computer
time 60 minutes
Anticipated Discharge: > 48 hours
Subjective/Interval History
-
Date of Service: January 29, 2024
Awake, alert, feels somewhat tremulous today
Objective Data
-
Labs:
Laboratory Results
01/29/24
04:24
WBC 5.3
Hgb 8.6 L
Hct 26.6 L
Plt Count 86 L
Sodium 130 L
Potassium 4.7
Chloride 101
Carbon Dioxide 24
BUN 51 H
Creatinine 0.9
Glucose 86
Calcium 8.6
Vital Signs:
Vital Signs
Temp Pulse Resp BP Pulse Ox
97.4 F 85 18 133/81 98
01/29/24 03:46 01/29/24 03:46 01/29/24 03:46 01/29/24 03:46 01/29/24 03:46
I&O
01/28/24 01/29/24 01/30/24
06:59 06:59 06:59
Intake Total 1550 / 1550 1200 / 1200
Output Total 1600 / 1600 1650 / 1650
Balance -50 / -50 -450 / -450
Review of Systems
-
History Source: Patient and Coordinated Provider
Constitutional: Denies Fever
EENT: Reports Other (tongue pain better)
Respiratory: Denies Trouble Breathing
Cardiac: Reports No Symptoms; Denies Chest Pain
Abdomen/GI: Reports No Symptoms; Denies Abdominal Pain
Skin: Reports Rash (continues to show improvement, back rash is fading, facial redness about same); Denies Itching
Neuro: Reports Tremors
Physical Exam
-
General: Well Developed, Well Nourished, No Apparent Distress and Comfortable
HEENT: Normocephalic, Atraumatic, Moist Mucous Membranes and Thrush (significantly better/resolved)
Respiratory: Clear to Auscultation; Negative Wheezes, Rales or Rhonchi
Cardiac: Regular Rhythm (intermittent extrasystole) and S1/S2
GI: Soft, Nontender and Nondistended
Musculoskeletal: Other (rt foot with gangrenous changes 2nd & 3rd toes)
Skin: Rash (maculpapular rash continues to fade, facial redness ~same)
Neuro: Awake, Alert, Oriented and Tremors
[2024-01-29] MEDS: MEPRON SUSPENSION 1500 MG PO (08:52)
[2024-01-29] MEDS: DELTASONE 50 MG PO (08:53)
[2024-01-29] MEDS: DIFLUCAN 150 MG PO (08:53)
[2024-01-29] MEDS: URE-NA 15 GRAMS PO ×2 (08:53→20:22)
[2024-01-29] MEDS: SODIUM CHLORIDE 1 GRAM PO ×2 (08:53→20:22)
[2024-01-29] MEDS: ASPIR LOW (ENTERIC COATED) 81 MG PO (08:54)
[2024-01-29] MEDS: HEPARIN 5000 UNITS SC ×2 (08:54→20:22)
[2024-01-29] MEDS: MIRALAX 17 GRAMS PO (08:54)
[2024-01-29] MEDS: PROTONIX 40 MG PO (08:54)
[2024-01-29] MEDS: SAMSCA 7.5 MG PO (09:09)
--- NOTE | 2024-01-29 10:10 | W.PN.ID1 ---
Date of Service
Date of Service: January 29, 2024
Today's Communication
Start Atovaquone for PJP prophylaxis.
Assessment / Plan
# PJP prophylaxis
- Start Atovaquone 1500mg daily while on prednisone 20mg or higher per day.
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
-risk factor for PJP - prolonged high dose steroid >1 month
BAL path: silver stain negative for Pneumocystis organisms
However BAL silver stain for PJP has low sensitivity (80's) in non-HIV immunosuppressed host.
- Responded well to empiric PJP tx, weaned off oxygen; Repeat CT chest (01/20) significant improvement of widespread airspace disease
- Completed 20 days of PJP tx on 01/27 (Bactrim x 12d /dc'd due to rash -> dapsone/trimethoprim). GGPD normal.
- Repeat CXR 01/28/24 - resolution of previous widespread interstitialy opacities.
# Hand tremors
- To resume metoprolol, per hospitalist
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
# Recent leukopenia (prior to Bactrim) -> neutropenia s/p TBO-filgrastim
- s/p BM biopsy- result pending
-Hem/Onc following
# Dry gangrene right 2, 3 toes
- Arterial duplex normal
- CT angiogram no significant stenosis
- Vascular suspect small vessel disease
#Additional Past Medical History:
Hypertension
Recurrent left pleural effusion
SVT
Hypothyroidism
Chronic SIADH
CVA
BP
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
Bullous pemphigoid
Fatty liver
Diverticulosis
Chronic lower extremity edema
Vertebral fracture
Chief Complaint
-: Other (Rash)
Subjective / Review of Systems
Thrush better.
Had significant hand tremors last night.
Tolerating Atovaquone.
Vital Signs / Physical Exam
Vital Signs
Vital Signs
Temp Pulse Resp BP Pulse Ox
97.9 F 96 16 131/83 97
01/29/24 08:00 01/29/24 08:00 01/29/24 08:00 01/29/24 08:00 01/29/24 08:00
Physical Exam
Constitutional: No Acute Distress
Pulmonary: Clear
Gastrointestinal: Soft, Non Tender and Non Distended
Wound: Other (Necrotic right 2nd, 3rd toes stable. )
Neurological: AO x 3
Objective Data
Lab Data
Lab Results
01/29/24 04:24
01/29/24 04:24
Estimated Creat Clear 68 ml/min 01/29/24 04:24
Lactic Acid Cancelled 01/21/24 17:45
Total Bilirubin 1.3 mg/dl (0.2-1.3) 01/21/24 13:34
AST 26 U/L (17-59) 01/21/24 13:34
ALT 32 U/L (0-50) 01/21/24 13:34
Alkaline Phosphatase 109 U/L (38-126) 01/21/24 13:34
Most recent labs reviewed.
Micro Results:
01/21/24 21:49 Blood Culture - Final
Blood/Venous No Growth - Final Report
01/21/24 14:03 Blood Culture - Final
Blood/Venous No Growth - Final Report
01/21/[address]: No CT evidence for pulmonary embolism. No aortic dissection. Significant improvement in widespread bilateral airspace disease seen on the prior CT scan 2.5 weeks ago. Persistent airspace disease as outlined above. No new area of
acute airspace process.
Care Review
Plan reviewed with: Physician (Dr. Bautista.)
[2024-01-29] MEDS: TOPROL XL 25 MG PO (10:14)
--- NOTE | 2024-01-29 10:38 | WOUNDNOTE ---
JANICE RN NOTE: Followed up with patient today, at bedside. Reviewed Podiatry note, no scheduled surgery at this time. TBI on R foot 0.16. Poor surgical candidate due to anemia. R toes remain with dry gangrene and demarcated. Base of dorsal toes
with stable anderson eschar. Patient states he had some pain btw toes from gauze dressing. Removed gauze, no weeping btw toes noted. Applied Betadine to 2nd-3rd toes and A&D ointment to remainder of foot, will stop gauze. Updated Dr. Bautista and approved
of local wound care. Heels remain intact, patient turned to side, sacrum intact. Will update wound care and follow as needed.
--- NOTE | 2024-01-29 13:17 | W.PN.POD ---
Today's Communication
Today's Communication
Discussed dry gangrene and treatment options with patient and
Agreed to follow up in my office to monitor
Assessment / Plan
-
-Gangrene right 2,3 toes
TBI 0.[address] angiogram shows no high grade stenosis with DP and PT pulses patent.
Surgical intervention would require TMA but he is a poor surgical candidate due to severe anemia
Patient also is not amenable to amputation at this time, stating he is sure this will heel like all the other wounds he has had.
As long as digits remain dry and stable, agree with daily dry dressings and watch for any progression to wet gangrene or cellulitis
Discussed situation with patient and his , explaining that if the area becomes infected, amputation of at least the 2,3 toes will be necessary to prevent sepsis
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
-Bullous Pemphigoid
-Warm Hemolytic Anemia
-Chronic Left Pleural Effusion
-Drug rash, possibly due to Bactrim
Subjective
Objective
Temp Pulse Resp BP Pulse Ox
98.1 F 114 16 127/82 97
01/29/24 12:03 01/29/24 12:03 01/29/24 12:03 01/29/24 12:03 01/29/24 12:03
01/29/24 04:24
01/29/24 04:24
Vital Signs and Lab results were reviewed.
--- NOTE | 2024-01-29 13:52 | W.PN.NEPH.PH ---
Today's Communication / Plan
-
- samsca scheduled daily
Assessment/Plan
-
Assessment:
Hyponatremia acute on chronic
anemia, hemolytic
bilateral pulmoanry infiltrates
Diffuse blanching macular rash
ischemic stroke
Hypotension
hypothyrodism
Plan:
Continue salt tablets and urea
Lasix 20 mg twice daily held for now
continue with fluid restrictio.
follow BMP
wean steroids
abx for PJP per ID
samsca daily scheduled while inpatient
transfuse PRBC prn
await serologies. C3C4 low; may need to get skin biopsy but rash appears better
-
-
Date of Service: January 29, 2024
CC / HPI / ROS
-
Chief Complaint:
hyponatremia
History of Present Illness:
Na stable 130
BP stable
rash seems better
Hgb 8.6
Review of Systems:
no CP/SOB
Labs
-
Labs:
WBC 5.3 10^3/uL (4.8-10.8) 01/29/24 04:24
RBC 2.88 10^6/uL (4.70-6.10) L 01/29/24 04:24
Hgb 8.6 g/dL (13.0-18.0) L 01/29/24 04:24
Hct 26.6 % (39.0-52.0) L 01/29/24 04:24
Plt Count 86 10^3/uL (130-400) L 01/29/24 04:24
Sodium 130 mmol/L (135-145) L 01/29/24 04:24
Potassium 4.7 mmol/L (3.5-5.1) 01/29/24 04:24
Chloride 101 mmol/L (98-107) 01/29/24 04:24
Carbon Dioxide 24 mmol/L (22-30) 01/29/24 04:24
BUN 51 mg/dl (9-20) H 01/29/24 04:24
Creatinine 0.9 mg/dL (0.7-1.3) 01/29/24 04:24
eGFR > 60.00 01/29/24 04:24
Glucose 86 mg/dl (70-99) 01/29/24 04:24
Calcium 8.6 mg/dl (8.4-10.2) 01/29/24 04:24
Ped-X-Lcnshuxpwpd Pept 2300 pg/ml 01/21/24 13:34
Albumin 3.0 g/dl (3.5-5.0) L 01/21/24 13:34
Physical Exam
-
Vital Signs:
Vital Signs
Temp Pulse Resp BP Pulse Ox
98.1 F 114 16 127/82 97
01/29/24 12:03 01/29/24 12:03 01/29/24 12:03 01/29/24 12:03 01/29/24 12:03
Cardiovascular:: Regular rate and rhythm
Respiratory:: Bilateral: Coarse
Lung Excursion:: Normal
Abdomen:: Nontender and Soft
Bowel Sounds:: Normal
Extremity Edema:: None: Bilateral:
Krishnamurthy Catheter: No
--- NOTE | 2024-01-29 14:50 | CM ---
Therapy recommendation to resume HH PT with [facility]. referral placed.
[2024-01-29 16:27] LABS: ANA, IgG Reflex to HEp-2 None Detected (None Detected)
[2024-01-29] MEDS: LIPITOR 40 MG PO (17:13)
[2024-01-29 17:22] LABS: Myeloperoxidase Antibody 0 AU/mL (0-19); Serine Protease-3, IgG 0 AU/mL (0-19)
--- NOTE | 2024-01-29 18:31 | W.PN.ONC ---
Today's Communication / Plan
-
d/w primary service, who will consult colo-rectal. It is possible that the infection might be blunting his reticulocytosis, thus making it harder for him to maintain his hemoglobin. His absolute reticulocyte count (January 09) was only 230,000, somewhat
suboptimal for chronic AIHA.
Impression
Impression
Autoimmune hemolytic anemia, treatment-refractory
Rectal Abscess
Hypotension
hyponatremia
Rash, suspect related to Bactrim
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
Weakness/fatigue
Thrombocytopenia
Plan
Plan
1. AIHA - hemoglobin improved
-7.6g/dl today - s/p 2 units PRBCs over the past 2 days
-follow CBC
-await 01/14 bone marrow biopsy result
Subjective/Objective
Subjective/Objective
No new complaints; frustrated that his Hgb continues to drift down. Exam unchanged.
Vital Signs:
Vital Signs
Temp Pulse Resp BP Pulse Ox
97.2 F 91 16 122/81 97
01/29/24 16:19 01/29/24 16:19 01/29/24 16:19 01/29/24 16:19 01/29/24 16:19
Lab Results:
Laboratory Data
WBC 5.3 10^3/uL (4.8-10.8) 01/29/24 04:24
Hgb 8.6 g/dL (13.0-18.0) L 01/29/24 04:24
Plt Count 86 10^3/uL (130-400) L 01/29/24 04:24
eGFR > 60.00 01/29/24 04:24
Orders
Orders
Orders From Last 24 Hours
01/30/24 06:00
Cold Agglutinins [S] IN AM
Cryoglobulin [S] IN AM
Haptoglobin [S] IN AM
LDH IN AM
Reticulocyte Count IN AM
--- NOTE | 2024-01-29 19:23 | CON.CRS ---
Consultation
-
Date/Time Consultation Requested: 01/29/2024 @15:07
Date/Time Consultation Performed: 01/26/2024 @15:30
Requesting Provider: Geronimo Bautista MD
Performing Provider: Von Spears MD
Reason for Consultation: Perirectal abscess
Medical History
-
Chief Complaint: Perirectal abscess seen on CT scan
History of Present Illness:
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
carinii. �For the evaluation of some gangrenous toes, a CT angiogram of the abdomen and pelvis was obtained on 01/25/2024 and incidentally noted was 9.1 cm fluid collection adjacent to the rectum on the right. �Upon my review there is also fluid
collection on the left, both containing air. The fluid collections were not present on a CT scan dated 09/26/2023.
He denies any rectal pain, pressure or drainage.� He has not had any previous perirectal infections.� He states his bowels are fairly regular and he is currently on MiraLAX.� He had 1 episode of blood per rectum that resolved after a suppository.
During this hospitalization he has remained afebrile and his vital signs are stable. �His white count is normal at 5.3 but has been as low as 0.9 a couple of weeks ago.� His hemoglobin today is 8.6 g/dL with a irene of 5.2 g/dL in October 2023.
Past Medical History
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
pemphigous, SIADH)
Past Surgical History: Tonsilectomy and Other (left thoracentesis)
Social History
Tobacco: Non-Smoker
Alcohol: Occasional
Personal:
Living: With Family
Employment: Retired
Allergies / Home Medications
Allergy/AdvReac Type Severity Reaction Status Date / Time
Sulfa (Sulfonamide Allergy Intermediate Rash Verified 01/22/24 09:08
Antibiotics)
amlodipine Allergy pt states Verified 01/01/24 14:19
it caused
his sodium
level to
be low
�Medication �Instructions �Recorded �Confirmed �Type
levothyroxine 75 mcg tablet 75 mcg PO DAILY@0700 Thyroid 12/03/18 01/21/24 History
folic acid 1 mg tablet 1 mg PO DAILY Supplement 09/26/23 01/21/24 History
polyethylene glycol 3350 17 gram 17 g PO DAILY constipation 10/17/23 01/21/24 History
oral powder packet ([employer]yLax)
sodium chloride 1,000 mg soluble 1,000 mg PO BID Electrolyte 10/17/23 01/21/24 History
tablet Repletion
cholecalciferol (vitamin D3) 25 25 mcg PO DAILY Supplement 10/30/23 01/21/24 History
mcg (1,000 unit) tablet
aspirin 81 mg tablet,delayed 81 mg PO DAILY Blood clot 11/03/23 01/21/24 Rx
release prevention/tx #30 tabs
atorvastatin 40 mg tablet 40 mg PO QPM High cholesterol #30 11/03/23 01/21/24 Rx
tabs
cyanocobalamin (vitamin B-12) 1,000 mcg PO DAILY Supplement #30 11/03/23 01/21/24 Rx
1,000 mcg tablet tabs
pantoprazole 40 mg tablet,delayed 40 mg PO DAILY Gastrointestinal 11/03/23 01/21/24 Rx
release issue #30 tabs
urea 15 gram oral powder packet 1 packet PO BID Electrolyte 01/01/24 01/21/24 History
Repletion
furosemide 20 mg tablet 20 mg PO DAILY hyponatremia 01/21/24 01/21/24 History
metoprolol succinate 25 mg 25 mg PO DAILY Heart 01/21/24 01/21/24 History
tablet,extended release 24 hr disease/condition
prednisone 20 mg tablet 20 mg PO DAILY Anti-Inflammatory 01/21/24 01/21/24 History
prednisone 5 mg tablet 10 mg PO DAILY Anti-Inflammatory 01/21/24 01/21/24 History
sulfamethoxazole 800 2 tab PO TID Infection 01/21/24 01/21/24 History
mg-trimethoprim 160 mg tablet
Review of Systems
-
All other systems: Negative unless noted
Constitutional: Fatigue
A 10 point review of systems was completed, and was negative except as per HPI.
Physical Exam
Vital Signs
Temp 97.2 F 01/29/24 16:19
Pulse 91 01/29/24 16:19
Resp Rate 16 01/29/24 16:19
Blood pressure 122/81 01/29/24 16:19
SaO2 97 01/29/24 16:19
01/28/24 01/29/24 01/30/24
06:59 06:59 06:59
Actual Weight 76.022 kg 74.298 kg
Body Mass Index (BMI) 24.2
Lab Results / Allergies
01/29/24 04:24
01/29/24 04:24
WBC 5.3 10^3/uL (4.8-10.8) 01/29/24 04:24
Hgb 8.6 g/dL (13.0-18.0) L 01/29/24 04:24
Hct 26.6 % (39.0-52.0) L 01/29/24 04:24
Plt Count 86 10^3/uL (130-400) L 01/29/24 04:24
Abs Immat Gran (auto) 0.2 10^3/uL (0-0.05) H 01/29/24 04:24
Neutrophils % 82.6 % (42.2-75.2) H 01/29/24 04:24
Allergy/AdvReac Type Severity Reaction Status Date / Time
Sulfa (Sulfonamide Allergy Intermediate Rash Verified 01/22/24 09:08
Antibiotics)
amlodipine Allergy pt states Verified 01/01/24 14:19
it caused
his sodium
level to
be low
Physical Exam
General: Well Developed, No Apparent Distress and Other (chronically-ill appearing)
HEENT: Anicteric
Respiratory: Clear
Cardiac: Regular Rhythm
GI: Non Distended
Rectal: Other (mild induration of the right perirectal area, no erythema/tenderness or secondary opening of a fistula. Normal on the left; KARLA with an ulcer at the dentate line posteriorly and fullness along the left; nontender)
Musculoskeletal: Edema
Neuro: Awake and Alert
Psych: Calm
Data Reviewed
-
CT Scan: Image Personally Visualized and interpreted, Discussed with Patient and Discussed with Family
Labs: Labs Reviewed by me, Discussed with Patient and Discussed with Family
Total Time Spent with Patient (in minutes): 55
Assessment / Plan
-
He appears to have a large perirectal abscess, which I suspect is a horseshoe abscess emanating from a posterior ulceration.� He is completely asymptomatic and the collection was found incidentally.� I reviewed the findings with the patient and his
and explained to them that the collection is unlikely to resolve with antibiotics alone and generally a drainage procedure is performed.� If it is a horseshoe abscess, the operation involves a posterior proctotomy with placement of drains to
promote drainage.� Risks of surgery include, but are not limited to, bleeding (especially in light of his platelet count in the 80s), sepsis, need for further surgery, incontinence, prolonged healing, and the risks of anesthesia.� I also reviewed
the typical recovery and functional results.� Without a drainage procedure, there is a risk of sepsis especially given his need for immunosuppression.� There is certainly no urgency to the operation and they would like to think about it. �They are
concerned about the overall picture with his refractory hemolytic anemia. �Empiric antibiotics are probably of little benefit at the present time.� Will follow.
[2024-01-30] VITALS (14 sets, daily range): BP systolic 91–129; BP diastolic 58–83; BMI 23.4
[2024-01-30 04:39] LABS: % Basophils 0.2 % (0-2); % Immature Granulocytes 1.4 % (0-0.5); % Lymphocytes 5.1 % (20.5-51.1); % Monocytes 9.3 % (1.7-9.3); Absolute Immature Granulocytes 0.1 10^3/uL (0-0.05); Absolute Lymphocytes 0.3 10^3/uL (1.2-3.4); Absolute Monocytes 0.5 10^3/uL (0.1-0.6); Absolute Neutrophils 4.1 10^3/uL (1.4-6.5); Hematocrit 26.1 % (39.0-52.0); Hemoglobin 8.6 g/dL (13.0-18.0); Mean Corpuscular Volume 90.9 fL (80.0-94.0); Mean Platelet Volume 10.4 fL (7.4-10.4); Nucleated Red Blood Cells % 1.2 % (-); Platelet Count 88 10^3/uL (130-400); Red Blood Cell Count 2.87 10^6/uL (4.70-6.10); Red Cell Dist. Width 21.8 % (11.5-14.5); Reticulocyte Count 7.4 % (0.4-2.8); White Blood Cell Count 4.9 10^3/uL (4.8-10.8)
[2024-01-30 05:02] LABS: Blood Urea Nitrogen 46 mg/dl (9-20); Calcium 8.3 mg/dl (8.4-10.2); Carbon Dioxide 25 mmol/L (22-30); Chloride 102 mmol/L (98-107); Estimated Creatinine Clearance 76 ml/min; Glucose 89 mg/dl (70-99); LDH 281 U/L (120-246); Potassium 4.2 mmol/L (3.5-5.1); Sodium 130 mmol/L (135-145); eGFR > 60.00
[2024-01-30] MEDS: SYNTHROID 75 MCG PO (05:41)
[2024-01-30] MEDS: SAMSCA 7.5 MG PO (08:54)
[2024-01-30] MEDS: PROTONIX 40 MG PO (08:54)
[2024-01-30] MEDS: MEPRON SUSPENSION 1500 MG PO (08:54)
[2024-01-30] MEDS: SODIUM CHLORIDE 1 GRAM PO ×2 (08:54→20:34)
[2024-01-30] MEDS: DELTASONE 50 MG PO (08:54)
[2024-01-30] MEDS: MIRALAX 17 GRAMS PO (08:55)
[2024-01-30] MEDS: TOPROL XL 25 MG PO (08:55)
[2024-01-30] MEDS: ASPIR LOW (ENTERIC COATED) 81 MG PO (08:55)
[2024-01-30] MEDS: HEPARIN 5000 UNITS SC ×2 (08:56→20:34)
[2024-01-30] MEDS: URE-NA 15 GRAMS PO ×2 (08:56→20:34)
--- NOTE | 2024-01-30 10:03 | W.PN.CRS1 ---
Today's Communication / Plan
-
Await decision with potential for I and D in OR later today.
Assessment/Plan
-
Patient with painless horseshoe perianal/rectal abscess.
Rediscussed recommendation for incision and drainage in OR. I have tentatively posted him for later today just in case. Discussed pathogenesis of the abscess, typical treatment (I & D), risks/benefits and recovery. He is still undecided and
wishes to discuss with heme onc when they round. For now will keep him npo for now just in case.
Subjective Data
Subjective Data
Date of Service: January 30, 2024
Denies pain. in room.
Objective Data
-
Vital Signs
Temp Pulse Resp BP Pulse Ox
97.9 F 77 16 129/76 97
01/30/24 08:00 01/30/24 08:55 01/30/24 08:00 01/30/24 08:55 01/30/24 08:00
Intake & Output
01/29/24 01/30/24 01/31/24
06:59 06:59 06:59
Intake Total 1200 / 1200 120 / 120
Output Total 1650 / 1650 650 / 650 300 / 300
Balance -450 / -450 -530 / -530 -300 / -300
Intake:
Oral fluids 1200 / 1200 120 / 120
Output:
Urine, Voided 1650 / 1650 650 / 650 300 / 300
Lab Results
01/30/24 04:25
01/30/24 04:25
Physical Exam
-
General: No Acute Distress
Chest: Clear
Cardiovascular: Regular Rate & Rhythm
Abdomen: Non Distended and Non Tender
Rectal: Other (deferred)
--- NOTE | 2024-01-30 11:03 | W.PN.NEPH.PH ---
Today's Communication / Plan
-
follow BMP
Assessment/Plan
-
Assessment:
Hyponatremia acute on chronic
anemia, hemolytic
bilateral pulmoanry infiltrates
Diffuse blanching macular rash
ischemic stroke
Hypotension
hypothyrodism
Plan:
Continue salt tablets and urea
Lasix 20 mg twice daily held for now, will eventually restart
continue with fluid restriction.
follow BMP
wean steroids
abx for PJP per ID
samsca daily scheduled while inpatient
transfuse PRBC prn
serologies otherwise unremarkable except low C3C4
for abscess I/D
-
-
Date of Service: January 30, 2024
CC / HPI / ROS
-
Chief Complaint:
hyponatremia
History of Present Illness:
Na stable 130
BP stable
rash seems better
Hgb stable
Review of Systems:
no CP/SOB
Labs
-
Labs:
WBC 4.9 10^3/uL (4.8-10.8) 01/30/24 04:25
RBC 2.87 10^6/uL (4.70-6.10) L 01/30/24 04:25
Hgb 8.6 g/dL (13.0-18.0) L 01/30/24 04:25
Hct 26.1 % (39.0-52.0) L 01/30/24 04:25
Plt Count 88 10^3/uL (130-400) L 01/30/24 04:25
Sodium 130 mmol/L (135-145) L 01/30/24 04:25
Potassium 4.2 mmol/L (3.5-5.1) 01/30/24 04:25
Chloride 102 mmol/L (98-107) 01/30/24 04:25
Carbon Dioxide 25 mmol/L (22-30) 01/30/24 04:25
BUN 46 mg/dl (9-20) H 01/30/24 04:25
Creatinine 0.8 mg/dL (0.7-1.3) 01/30/24 04:25
eGFR > 60.00 01/30/24 04:25
Glucose 89 mg/dl (70-99) 01/30/24 04:25
Calcium 8.3 mg/dl (8.4-10.2) L 01/30/24 04:25
Aqf-J-Hkrttfrdgsb Pept 2300 pg/ml 01/21/24 13:34
Albumin 3.0 g/dl (3.5-5.0) L 01/21/24 13:34
Physical Exam
-
Vital Signs:
Vital Signs
Temp Pulse Resp BP Pulse Ox
97.9 F 77 16 129/76 97
01/30/24 08:00 01/30/24 08:55 01/30/24 08:00 01/30/24 08:55 01/30/24 08:00
Cardiovascular:: Regular rate and rhythm
Respiratory:: Bilateral: Coarse
Lung Excursion:: Normal
Abdomen:: Nontender and Soft
Bowel Sounds:: Normal
Extremity Edema:: None: Bilateral:
--- NOTE | 2024-01-30 12:56 | W.PN.HOSP.TC ---
Addendum entered and electronically signed by Geronimo Bautista MD 01/30/24 17:24:
call placed and discussed with CRS. Perirectal abscess has been cultured, will start empiric abx. Dr Sims recommends Unasyn
will order
Original Note:
Today's Communication/Plan
-
intervention on perirectal abscess today
Continue current dose of steroids
recheck labs
Assessment / Plan
Assessment / Plan
Assessment/Plan
Acute on Chronic Hyponatremia, with possible component of SIADH
-Nephrology consulted, recommendations appreciated
-Status post 3% sodium IV fluids
-Continue oral sodium tabs
-Continue daily PO fluid restriction
-Samsca as per nephrology
Na slightly better at 128-->130-->130
Diffuse Rash, most likely drug reaction to Bactrim vs less likely Transfusion Reaction following PRBCs given on January 18
-Consulted Infectious Disease, recommendations appreciated
-Consulted Hematology
-Stopped Bactrim due to rash
rash on back essentially resolved, facial rash better, not resolved
-Continue Benadryl prn
-Stress dose steroids--previously changed Hydrocortisone to Prednisone 50 mg per day
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
Recent Widespread interstitial pneumonitis with acute hypoxic respiratory insufficiency -> resolved, off O2 on rm air with SaO2 97-98%
Immunocompromised State
-Now on room air
-Replaced Bactrim with Dapsone 100mg po daily plus trimethoprim 400mg po tid completed 01/28/24. G6PD normal. Reviewed with Dr. Sims. To start Atovaquone 1500 mg daily as per Dr. Sims
-After PJP treatment, need PJP secondary prophylaxis with atovaquone 1500mg daily while on prednisone 20mg or higher/day
-Appreciate ID evaluation and recommendations
CXR 01/27 - [facility]
Postural and action tremor
-Neurology consulted, recommendations appreciated
-Very likely due to medication and/or metabolic derangements, including prednisone
-Monitor blood pressure and heart rate
discussed restart metoprolol at lower-dose which may help with tremor symptoms (was on 50 mg daily, will start 25 mg daily), with excellent response, no obvious tremor noted
-Checked liver function and ammonia test - nl
Hypotension - IMPROVED
Hyponatremia
-Hold Lasix due to hypotension
-Status post IV hydrocortisone
-Now on oral prednisone, 50mg/d, to be tapered slowly
-Monitor BP closely
-Dr. Palacios spoke with endocrinology on-call, adrenal insufficiency is unlikely in this case since patient was already on Prednisone 30 mg daily at home
-Appreciate nephrology evaluation and recommendations
-Fluid restriction
-Samsca as per nephrology
Gangrene right 2,3 toes with ulceration of 1,4,5 toes as well
-Discussed case on January 22, 2024 with Jessica Mo from wound care
-Ordered DENTON/TBI with severely low right sided TBI
-Consulted vascular surgery, recommendations appreciated: not really much vascular surgery can offer here from a revascularization standpoint - if wounds not healing, he would require TMA due to small vessel disease.
-Consulted podiatry, recommendations appreciated: no immediate surgery from podiatry standpoint at this time. Call placed to Dr. Rojas to discuss situation and her input is greatly appreciated. No easy answer, but plan is for him to follow up
with podiatry ~10 days post dc for reevaluation
surgical intervention is not required at this time
-Wound care consult for light dressing to separate toes and prevent infection
Thrush much better
Fluconazole stopped
Leukocytosis resolved and Elevated Procalcitonin - noted on 01/20 of 0.70
-Chest CT shows improved airspace disease compared to prior
-Patient received doses of vancomycin and Zosyn in ED - ID suggested holding further antibiotics
-Await blood cultures
Elevated Troponin, suspect Non-Ischemic Myocardial Injury insetting of hypotension
-Continue to trend troponin
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
-Consulted Hematology
Bone Marrow done on 01/14 pending
-Hgb 7.5-->6.9-->6.3-transfused->7.2-transfused-->7.6-->8.6-->8.6
-Monitor CBC closely
-Ordered PRBCs as Hgb dropped to 6.9 on January 25, 2024 with further drop to 6.3 on January 26, 2024
-As per blood bank patient has received 1+ incompatible blood previously w/o issue
-3 units of blood were ready on January 26, 2024 and 2 of those three units were +1 incompatible blood -- Was discussed over the phone with on-call customer field representative Dr. Vincenzo Ortega who advised to premedicate the patient with 10 mg intravenous
Dexamethasone, 25 mg IV Benadryl, and 650 mg PO Tylenol all at the same time, and then 30 minutes after getting these medications, the blood should be started
-Patient received 1 unit of PRBC on January 26, 2024 with the above pretreatment
-2nd unit of PRBC on January 27, 2024 with pretreatment
Recent Neutropenia resolved after TBO-filgrastim; s/p BM bx 01/15/24
Hypothyroidism
-Continue Synthroid
History of Left Occipital Stroke
-Continue aspirin
-Continue atorvastatin
Perirectal abscess noted on CT scan of 01/24. Of note, pt is asymptomatic
colorectal surgery consulted with planned intervention 01/29
History of SVT
-Metoprolol resumed
-Monitor on Telemetry
History of Recurrent left pleural effusion
SVT
Chronic SIADH
CVA
BP
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
consideration for splenectomy. As such Dr. Sims would like to give Prevnar, she does not believe this should affect the hemolytic anemia
Bullous pemphigoid
Fatty liver
Diverticulosis
Chronic lower extremity edema
Vertebral fracture
DVT prophylaxis: Heparin Subq
Code Status: DNR confirmed with patient at time of admission
complex situation
reviewed entire situation with in room
time 45 minutes
Anticipated Discharge: 24 - 48 hours
Subjective/Interval History
-
Date of Service: January 30, 2024
Awake, alert, actually looks better today
Objective Data
-
Labs:
Laboratory Results
01/30/24
04:25
WBC 4.9
Hgb 8.6 L
Hct 26.1 L
Plt Count 88 L
Sodium 130 L
Potassium 4.2
Chloride 102
Carbon Dioxide 25
BUN 46 H
Creatinine 0.8
Glucose 89
Calcium 8.3 L
Vital Signs:
Vital Signs
Temp Pulse Resp BP Pulse Ox
97.8 F 83 14 107/64 98
01/30/24 12:09 01/30/24 12:09 01/30/24 12:09 01/30/24 12:09 01/30/24 12:09
I&O
01/29/24 01/30/24 01/31/24
06:59 06:59 06:59
Intake Total 1200 / 1200 120 / 120
Output Total 1650 / 1650 650 / 650 300 / 300
Balance -450 / -450 -530 / -530 -300 / -300
Review of Systems
-
History Source: Patient and Coordinated Provider
Constitutional: Denies Fever
EENT: Reports Other (tongue pain resolved)
Respiratory: Denies Trouble Breathing
Cardiac: Reports No Symptoms; Denies Chest Pain
Abdomen/GI: Reports No Symptoms; Denies Abdominal Pain
Skin: Reports Rash (continues to show improvement, back rash is fading, facial redness about same); Denies Itching
Neuro: Reports Tremors
Physical Exam
-
General: Well Developed, Well Nourished, No Apparent Distress and Comfortable
HEENT: Normocephalic, Atraumatic, Moist Mucous Membranes and Thrush (significantly better/resolved)
Respiratory: Clear to Auscultation; Negative Wheezes, Rales or Rhonchi
Cardiac: Regular Rhythm (intermittent extrasystole) and S1/S2
GI: Soft, Nontender and Nondistended
Musculoskeletal: Other (rt foot with gangrenous changes 2nd & 3rd toes)
Skin: Rash (maculpapular rash continues to fade, facial redness ~same)
Neuro: Awake, Alert, Oriented and Tremors
--- NOTE | 2024-01-30 13:22 | CM ---
Perianal/rectal abscess. Possible I&D today. Discharge plan of care: Home with resumption of [facility] for VN and PT/OT.
--- NOTE | 2024-01-30 13:45 | W.PN.ID1 ---
Date of Service
Date of Service: January 30, 2024
Today's Communication
See below.
Assessment / Plan
# Incidental finding horseshoe perianal/rectal abscess
- Pt asymptomatic
- For I+D today. Pls send cultures.
- Will likely start abx post-op pending OR finding.
# PJP prophylaxis
- Continue Atovaquone 1500mg daily while on prednisone 20mg or higher per day.
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
-risk factor for PJP - prolonged high dose steroid >1 month
BAL path: silver stain negative for Pneumocystis organisms
However BAL silver stain for PJP has low sensitivity (80's) in non-HIV immunosuppressed host.
- Responded well to empiric PJP tx, weaned off oxygen; Repeat CT chest (01/20) significant improvement of widespread airspace disease
- Completed 20 days of PJP tx on 01/27 (Bactrim x 12d /dc'd due to rash -> dapsone/trimethoprim). GGPD normal.
- Repeat CXR 01/28/24 - resolution of previous widespread interstitial opacities.
# Hand tremors
- resolved after resumption of metoprolol
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
# Recent leukopenia (prior to Bactrim) -> neutropenia s/p TBO-filgrastim
- s/p BM biopsy- result pending
-Hem/Onc following
# Dry gangrene right 2, 3 toes
- Arterial duplex normal
- CT angiogram no significant stenosis
- Vascular suspect small vessel disease
#Additional Past Medical History:
Hypertension
Recurrent left pleural effusion
SVT
Hypothyroidism
Chronic SIADH
CVA
BP
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
Bullous pemphigoid
Fatty liver
Diverticulosis
Chronic lower extremity edema
Vertebral fracture
Chief Complaint
-: Other (Rash)
Subjective / Review of Systems
Refused PCV-20 as splenectomy is not definitive.
To OR later today for incidental finding of rectal abscess. Pt without symptoms.
Vital Signs / Physical Exam
Vital Signs
Vital Signs
Temp Pulse Resp BP Pulse Ox
97.8 F 83 14 107/64 98
01/30/24 12:09 01/30/24 12:09 01/30/24 12:09 01/30/24 12:09 01/30/24 12:09
Physical Exam
Constitutional: No Acute Distress and Comfortable
Pulmonary: Clear
Gastrointestinal: Soft, Non Tender and Non Distended
Neurological: AO x 3
Objective Data
Lab Data
Lab Results
01/30/24 04:25
01/30/24 04:25
Estimated Creat Clear 76 ml/min 01/30/24 04:25
Lactic Acid Cancelled 01/21/24 17:45
Total Bilirubin 1.3 mg/dl (0.2-1.3) 01/21/24 13:34
AST 26 U/L (17-59) 01/21/24 13:34
ALT 32 U/L (0-50) 01/21/24 13:34
Alkaline Phosphatase 109 U/L (38-126) 01/21/24 13:34
Most recent labs reviewed.
Micro Results:
01/21/24 21:49 Blood Culture - Final
Blood/Venous No Growth - Final Report
01/21/24 14:03 Blood Culture - Final
Blood/Venous No Growth - Final Report
01/21/[address]: No CT evidence for pulmonary embolism. No aortic dissection. Significant improvement in widespread bilateral airspace disease seen on the prior CT scan 2.5 weeks ago. Persistent airspace disease as outlined above. No new area of
acute airspace process.
--- NOTE | 2024-01-30 14:46 | W.PN.ONC2 ---
Addendum entered and electronically signed by Nasra Paulino MD 01/30/24 15:20:
Taper prednisone to 40 mg daily. He has been on current dose for a week.
Would taper again in 2 weeks as outpt depending on counts.
Original Note:
Today's Communication / Plan
-
Total bilirubin, direct bilirubin with a.m. labs.
Coags now, exclude DIC, verify adequate clotting function for planned surgery.
Impression
Impression
Anemia, multifactorial
Rectal Abscess
Autoimmune hemolytic anemia, treatment-refractory
History of rectal cancer arising in a polyp status post polypectomy in May 2019, cauterized polyp base uninvolved by tumor and no further treatment recommended
Hypotension
hyponatremia
Rash, suspect related to Bactrim
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
Weakness/fatigue
Thrombocytopenia
Plan
Plan
Suspect the perirectal abscess is contributing significantly to patient's cytopenias.
Will send coags and evaluation of thrombocytopenia, there may be a degree of DIC.
Discussed with patient and that cytopenias can occur in the setting of an untreated infection.
He will proceed to OR this afternoon as planned, for the abscess to be addressed surgically.
Suspect his cytopenias will improve subsequently.
Awaiting bone marrow biopsy result.
There may be a degree of ongoing hemolysis but it is unimpressive, with LDH marginally elevated, total bili normal when last checked.
Subjective/Objective
Chief Complaint
Hematology follow-up of multifactorial anemia
Subjective
Recent events noted: Patient found to have perirectal abscess. Denies weakness currently.
Vital Signs:
Vital Signs
Temp Pulse Resp BP Pulse Ox
97.8 F 83 14 107/64 98
01/30/24 12:09 01/30/24 12:09 01/30/24 12:01/30/24 12:09 01/30/24 12:09
Lab Results:
Laboratory Data
WBC 4.9 10^3/uL (4.8-10.8) 01/30/24 04:25
Hgb 8.6 g/dL (13.0-18.0) L 01/30/24 04:25
Plt Count 88 10^3/uL (130-400) L 01/30/24 04:25
eGFR > 60.00 01/30/24 04:25
01/30/24: retic 7.4%, haptoglobin pending, CR 0.8, LDH 281
01/21/24: Total bilirubin 1.3
Physical Exam
Awake, alert, nontoxic-appearing
Cheeks markedly flushed
HEENT: Moist Mucous Membranes; No Jaundice
Cardiology: Other (Sinus tachycardia)
Pulmonary: Clear
GI: Normal Bowel Sounds and Flat
Extremities: No C/C/E
Neuro: Non Focal
Review of Systems
Review of Systems
Constitutional: Reports Fatigue; Denies Fever
Head: Denies Sore Throat or Hearing Loss
Respiratory: Denies Dyspnea or Cough
Cardiovascular: Denies Chest Pain or Palpitations
Gastrointestinal: Denies Nausea/Vomiting or Diarrhea
Genitourinary: Denies Hematuria
Skin: Denies Rash or Pruritis
Neurological: Denies Headache or Numbness
Psychiatric: Denies Depression or Insomnia
Hem/Lymphatic: Denies Night Sweats
[2024-01-30 16:14] LABS: APTT 26.5 Sec (23.4-35.0); INR 1.04; PT 13.7 Sec (11.4-14.6)
[2024-01-30 16:15] LABS: Fibrinogen 281 MG/DL (199-459)
--- NOTE | 2024-01-30 17:08 | W.IMMPOSTOP ---
Addendum entered and electronically signed by Geronimo Patel MD 01/30/24 17:15:
Patient's updated via phone conversation.
Original Note:
Surgical Immed Post Op Note
-
Primary Surgeon: Chad Patel MD
Assisting Surgeon: none
Pre-op Diagnosis: perirectal abscess
Post-op Diagnosis: same
Procedure Performed: incision and drainage perirectal abscess
Anesthesia Type: MAC plus local
Specimen / Cultures: abscess cultures
Estimated Blood Loss: 20 cc
Complications: no immediate
Operative Findings: perirectal/ischiorectal abscess--mainly right anterior and perineal
1/[address]--covered with 4 by 4s and tape.
Sending back to floor.
Resume diet.
Antibiotics per ID.
[2024-01-30] MEDS: UNASYN IV ×2 (18:21→23:17)
[2024-01-30] MEDS: LIPITOR 40 MG PO (18:25)
[2024-01-30] MEDS: FLUSH (NSS) 2 FLUSH IV (23:18)
[2024-01-31] VITALS (7 sets, daily range): BP systolic 107–127; BP diastolic 59–72; PULSE 94; O2SAT 98; BMI 24.0
[2024-01-31] MEDS: UNASYN IV ×4 (05:35→23:39)
[2024-01-31] MEDS: FLUSH (NSS) 2 FLUSH IV (05:35)
[2024-01-31] MEDS: SYNTHROID 75 MCG PO (05:38)
[2024-01-31 06:39] LABS: % Basophils 0.1 % (0-2); % Immature Granulocytes 1.2 % (0-0.5); % Lymphocytes 3.1 % (20.5-51.1); % Monocytes 5.7 % (1.7-9.3); % Neutrophils 89.9 % (42.2-75.2); Absolute Immature Granulocytes 0.1 10^3/uL (0-0.05); Absolute Lymphocytes 0.2 10^3/uL (1.2-3.4); Absolute Monocytes 0.4 10^3/uL (0.1-0.6); Absolute Neutrophils 6.2 10^3/uL (1.4-6.5); Hematocrit 25.6 % (39.0-52.0); Hemoglobin 8.4 g/dL (13.0-18.0); Mean Corp Hgb Conc. 32.8 g/dL (33.0-37.0); Mean Corpuscular Hgb 30.7 pg (27.0-31.0); Mean Corpuscular Volume 93.4 fL (80.0-94.0); Mean Platelet Volume 10.6 fL (7.4-10.4); Nucleated Red Blood Cells % 0.3 % (-); Platelet Count 85 10^3/uL (130-400); Red Blood Cell Count 2.74 10^6/uL (4.70-6.10); Red Cell Dist. Width 22.1 % (11.5-14.5); White Blood Cell Count 6.9 10^3/uL (4.8-10.8)
--- NOTE | 2024-01-31 06:53 | PTCARENOTE ---
Tap water enema administered as ordered. Patient unable to hold well. Drained clear liquid. No BM noted.
[2024-01-31 07:03] LABS: Blood Urea Nitrogen 36 mg/dl (9-20); Carbon Dioxide 22 mmol/L (22-30); Chloride 102 mmol/L (98-107); Direct Bilirubin 0.4 mg/dl (0.0-0.4); Estimated Creatinine Clearance 101 ml/min; Glucose 93 mg/dl (70-99); Sodium 131 mmol/L (135-145); eGFR > 60.00
--- NOTE | 2024-01-31 08:57 | W.PN.NEPH.PH ---
Today's Communication / Plan
-
continue samsca
Assessment/Plan
-
Assessment:
Hyponatremia acute on chronic
anemia, hemolytic
bilateral pulmoanry infiltrates
Diffuse blanching macular rash
ischemic stroke
Hypotension
hypothyrodism
Plan:
Continue salt tablets and urea
Lasix 20 mg twice daily held for now, will eventually restart on discharge
continue with fluid restriction.
follow BMP
wean steroids per hematology
abx for PJP per ID
samsca daily scheduled while inpatient only
transfuse PRBC prn
cap IVF
-
-
Date of Service: January 31, 2024
CC / HPI / ROS
-
Chief Complaint:
hyponatremia
History of Present Illness:
Na stable 131
BP stable
rash seems better again
Hgb stable
Review of Systems:
no CP/SOB
Labs
-
Labs:
WBC 6.9 10^3/uL (4.8-10.8) 01/31/24 06:00
RBC 2.74 10^6/uL (4.70-6.10) L 01/31/24 06:00
Hgb 8.4 g/dL (13.0-18.0) L 01/31/24 06:00
Hct 25.6 % (39.0-52.0) L 01/31/24 06:00
Plt Count 85 10^3/uL (130-400) L 01/31/24 06:00
Sodium 131 mmol/L (135-145) L 01/31/24 06:00
Potassium 4.0 mmol/L (3.5-5.1) 01/31/24 06:00
Chloride 102 mmol/L (98-107) 01/31/24 06:00
Carbon Dioxide 22 mmol/L (22-30) 01/31/24 06:00
BUN 36 mg/dl (9-20) H 01/31/24 06:00
Creatinine 0.6 mg/dL (0.7-1.3) L 01/31/24 06:00
eGFR > 60.00 01/31/24 06:00
Glucose 93 mg/dl (70-99) 01/31/24 06:00
Calcium 8.0 mg/dl (8.4-10.2) L 01/31/24 06:00
Edf-M-Zeryypswqdo Pept 2300 pg/ml 01/21/24 13:34
Albumin 3.0 g/dl (3.5-5.0) L 01/21/24 13:34
Physical Exam
-
Vital Signs:
Vital Signs
Temp Pulse Resp BP Pulse Ox
97.7 F 67 14 121/66 97
01/31/24 07:00 01/31/24 07:00 01/31/24 07:00 01/31/24 07:00 01/31/24 07:00
Cardiovascular:: Regular rate and rhythm
Respiratory:: Bilateral: Coarse
Lung Excursion:: Normal
Abdomen:: Nontender and Soft
Bowel Sounds:: Normal
Extremity Edema:: None: Bilateral:
[2024-01-31] MEDS: PROTONIX 40 MG PO (09:21)
[2024-01-31] MEDS: MIRALAX 17 GRAMS PO (09:21)
[2024-01-31] MEDS: SODIUM CHLORIDE 1 GRAM PO ×2 (09:21→20:19)
[2024-01-31] MEDS: DELTASONE 40 MG PO (09:21)
[2024-01-31] MEDS: HEPARIN 5000 UNITS SC ×2 (09:22→20:19)
[2024-01-31] MEDS: MEPRON SUSPENSION 1500 MG PO (09:22)
[2024-01-31] MEDS: ASPIR LOW (ENTERIC COATED) 81 MG PO (09:22)
[2024-01-31] MEDS: SAMSCA 7.5 MG PO (09:22)
[2024-01-31] MEDS: URE-NA 15 GRAMS PO ×2 (09:23→20:19)
[2024-01-31] MEDS: TOPROL XL 25 MG PO (09:23)
--- NOTE | 2024-01-31 09:39 | W.PN.CRS1 ---
Today's Communication / Plan
-
finish abx as an outpatient
f/u with Dr. Olguin in 1-2 weeks
sitz baths BID
Assessment/Plan
-
POD#1 incision and drainage perirectal abscess
1. WBC normal. Vitals normal.
2. Tolerating a regular diet.
3. Daily fiber supplement and stool softeners as needed.
4. Sitz baths twice a day for 10 minutes at a time with warm water for one week.
5. Rizwan drain to remain in place until office visit with Dr. Olguin.
6. Continue course of Augmentin as an outpatient.
7. OR cultures pending.
8. Gauze or pad to underwear area PRN to protect from drainage.
9. Follow up with Dr. Olguin in 1-2 weeks in the office. Discussed all of the above with patient and Dr. Mirsky. Otto for d/c from our perspective when cleared by primary team.
Subjective Data
Subjective Data
Date of Service: January 31, 2024
Patient states his pain is controlled. He moved his bowels yesterday morning but not since surgery. He has no complaints.
Objective Data
-
Vital Signs
Temp Pulse Resp BP Pulse Ox
97.7 F 67 14 121/66 97
01/31/24 07:00 01/31/24 09:23 01/31/24 07:00 01/31/24 09:23 01/31/24 07:00
Intake & Output
01/30/24 01/31/24 02/01/24
06:59 06:59 06:59
Intake Total 120 / 120 770 / 770
Output Total 650 / 650 1050 / 1050
Balance -530 / -530 -280 / -280
Intake:
Oral fluids 120 / 120 480 / 480
IV fluids (Total) 150 / 150
Normosol 150 / 150
IV piggybacks 140 / 140
Output:
Urine, Voided 650 / 650 1050 / 1050
Lab Results
01/31/24 06:00
01/31/24 06:00
Physical Exam
-
General: No Acute Distress and AOx3
Abdomen: Soft, Non Distended and Non Tender
Wound: Dressing Changed (removed) and Other (mucin present over wound, no signs of infection, rizwan drain in place)
--- NOTE | 2024-01-31 10:22 | W.PN.ONC ---
Today's Communication / Plan
-
Suspect the perirectal abscess is contributing significantly to patient's cytopenias
No evidence of DIC
Thrombocytopenia stable since 01/21
Hemoglobin stable over the last 3 days
Status post I&D
No objection to discharge should counts remained stable
Final bone marrow pending
There may be a degree of ongoing hemolysis but it is unimpressive, with LDH marginally elevated, total bili normal when last checked
Impression
Impression
Anemia, multifactorial
Rectal Abscess
Autoimmune hemolytic anemia, treatment-refractory
History of rectal cancer arising in a polyp status post polypectomy in May 2019, cauterized polyp base uninvolved by tumor and no further treatment recommended
Hypotension
hyponatremia
Rash, suspect related to Bactrim
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
Weakness/fatigue
Thrombocytopenia
Subjective/Objective
Subjective/Objective
Patient without new complaints.
Vital Signs:
Vital Signs
Temp Pulse Resp BP Pulse Ox
97.7 F 67 14 121/66 97
01/31/24 07:00 01/31/24 09:23 01/31/24 07:00 01/31/24 09:23 01/31/24 07:00
Physical exam unchanged
Lab Results:
Laboratory Data
WBC 6.9 10^3/uL (4.8-10.8) 01/31/24 06:00
Hgb 8.4 g/dL (13.0-18.0) L 01/31/24 06:00
Plt Count 85 10^3/uL (130-400) L 01/31/24 06:00
PT 13.7 Sec (11.4-14.6) 01/30/24 15:26
INR 1.04 01/30/24 15:26
APTT 26.5 Sec (23.4-35.0) 01/30/24 15:26
eGFR > 60.00 01/31/24 06:00
--- NOTE | 2024-01-31 10:24 | W.PN.ID1 ---
Date of Service
Date of Service: January 31, 2024
Today's Communication
Continue Unasyn d1.
Anticipate dc home tomorrow on Augmentin 875mg po bid x 10 more days.
Assessment / Plan
# Immunocompromised host
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
# Recent leukopenia (prior to Bactrim) -> neutropenia s/p TBO-filgrastim
- s/p BM biopsy- result pending
-Hem/Onc following
# Incidental finding horseshoe perianal/rectal abscess
- Pt asymptomatic
- 01/30 s/p I+D. Appreciate colorectal surgeon - Aerobic and anaerobic cx pending.
- Will likely start abx post-op pending OR finding.
- Continue Unasyn d1.
Anticipate dc home tomorrow on Augmentin 875mg po bid x 10 more days.
# PJP prophylaxis
- Continue Atovaquone 1500mg daily while on prednisone 20mg or higher per day.
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
-risk factor for PJP - prolonged high dose steroid >1 month
BAL path: silver stain negative for Pneumocystis organisms
However BAL silver stain for PJP has low sensitivity (80's) in non-HIV immunosuppressed host.
- Responded well to empiric PJP tx, weaned off oxygen; Repeat CT chest (01/20) significant improvement of widespread airspace disease
- Completed 20 days of PJP tx on 01/27 (Bactrim x 12d /dc'd due to rash -> dapsone/trimethoprim). GGPD normal.
- Repeat CXR 01/28/24 - resolution of previous widespread interstitial opacities.
# Dry gangrene right 2, 3 toes
- Arterial duplex normal
- CT angiogram no significant stenosis
- Vascular suspect small vessel disease
#Additional Past Medical History:
Hypertension
Recurrent left pleural effusion
SVT
Hypothyroidism
Chronic SIADH
CVA
BP
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
Bullous pemphigoid
Fatty liver
Diverticulosis
Chronic lower extremity edema
Vertebral fracture
Chief Complaint
-: Other (Rash)
Subjective / Review of Systems
No post-op pain.
Vital Signs / Physical Exam
Vital Signs
Vital Signs
Temp Pulse Resp BP Pulse Ox
97.7 F 67 14 121/66 97
01/31/24 07:00 01/31/24 09:23 01/31/24 07:00 01/31/24 09:23 01/31/24 07:00
Physical Exam
Constitutional: No Acute Distress
Cardiovascular: Regular Rate and S1/S2
Pulmonary: Clear
Gastrointestinal: Soft, Non Tender, Non Distended and Normal Bowel Sounds
Genito-Urinary: Negative CVA Tenderness
Extremities: Negative Edema
Neurological: AO x 3
Objective Data
Lab Data
Lab Results
01/31/24 06:00
01/31/24 06:00
PT 13.7 Sec (11.4-14.6) 01/30/24 15:26
INR 1.04 01/30/24 15:26
APTT 26.5 Sec (23.4-35.0) 01/30/24 15:26
Estimated Creat Clear 101 ml/min 01/31/24 06:00
Lactic Acid Cancelled 01/21/24 17:45
Total Bilirubin 1.0 mg/dl (0.2-1.3) 01/31/24 06:00
AST 26 U/L (17-59) 01/21/24 13:34
ALT 32 U/L (0-50) 01/21/24 13:34
Alkaline Phosphatase 109 U/L (38-126) 01/21/24 13:34
Most recent labs reviewed.
Micro Results:
01/30/24 16:45 Wound Culture - Pending
Abscess Gram Stain - Preliminary
01/30/24 16:45 Anaerobic Culture - Pending
Abscess
01/21/24 21:49 Blood Culture - Final
Blood/Venous No Growth - Final Report
01/21/24 14:03 Blood Culture - Final
Blood/Venous No Growth - Final Report
01/21/[address]: No CT evidence for pulmonary embolism. No aortic dissection. Significant improvement in widespread bilateral airspace disease seen on the prior CT scan 2.5 weeks ago. Persistent airspace disease as outlined above. No new area of
acute airspace process.
Care Review
Plan reviewed with: Physician (Dr. Bautista)
[2024-01-31 11:24] LABS: Haptoglobin 146 mg/dL (30-200)
--- NOTE | 2024-01-31 12:26 | W.PN.HOSP.TC ---
Today's Communication/Plan
-
continue Prednisone
Unasysn
Slip given for rolling walker
Assessment / Plan
Assessment / Plan
Assessment/Plan
Acute on Chronic Hyponatremia, with possible component of SIADH
-Nephrology consulted, recommendations appreciated
-Status post 3% sodium IV fluids
-Continue oral sodium tabs
-Continue daily PO fluid restriction
-Samsca as per nephrology
Na slightly better at 128-->130-->130-->131
Diffuse Rash, most likely drug reaction to Bactrim vs less likely Transfusion Reaction following PRBCs given on January 18
-Consulted Infectious Disease, recommendations appreciated
-Consulted Hematology
-Stopped Bactrim due to rash
rash on back essentially resolved, facial rash better, not resolved
-Continue Benadryl prn
-Stress dose steroids--previously changed Hydrocortisone to Prednisone 50 mg per day
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
Recent Widespread interstitial pneumonitis with acute hypoxic respiratory insufficiency -> resolved, off O2 on rm air with SaO2 97-98%
Immunocompromised State
-Now on room air
-Replaced Bactrim with Dapsone 100mg po daily plus trimethoprim 400mg po tid completed 01/28/24. G6PD normal. Reviewed with Dr. Sims. Now on Atovaquone 1500 mg daily [address] per Dr. Sims
-After PJP treatment, need PJP secondary prophylaxis with atovaquone 1500mg daily while on prednisone 20mg or higher/day
-Appreciate ID evaluation and recommendations
CXR 01/27 - [facility]
Postural and action tremor
-Neurology consulted, recommendations appreciated
-Very likely due to medication and/or metabolic derangements, including prednisone
-Monitor blood pressure and heart rate
discussed restart metoprolol at lower-dose which may help with tremor symptoms (was on 50 mg daily, will start 25 mg daily), with excellent response, no obvious tremor noted
-Checked liver function and ammonia test - nl
Hypotension - IMPROVED
Hyponatremia
-Hold Lasix due to hypotension
-Status post IV hydrocortisone
-Now on oral prednisone, 50mg/d, to be tapered slowly
-Monitor BP closely
-Dr. Palacios spoke with endocrinology on-call, adrenal insufficiency is unlikely in this case since patient was already on Prednisone 30 mg daily at home
-Appreciate nephrology evaluation and recommendations
-Fluid restriction
-Samsca as per nephrology
Gangrene right 2,3 toes with ulceration of 1,4,5 toes as well
-Discussed case on January 22, 2024 with Jessica Mo from wound care
-Ordered DENTON/TBI with severely low right sided TBI
-Consulted vascular surgery, recommendations appreciated: not really much vascular surgery can offer here from a revascularization standpoint - if wounds not healing, he would require TMA due to small vessel disease.
-Consulted podiatry, recommendations appreciated: no immediate surgery from podiatry standpoint at this time. Call placed to Dr. Rojas to discuss situation and her input is greatly appreciated. No easy answer, but plan is for him to follow up
with podiatry ~10 days post dc for reevaluation
surgical intervention is not required at this time
-Wound care consult for light dressing to separate toes and prevent infection
Thrush much better
Fluconazole stopped
Leukocytosis resolved and Elevated Procalcitonin - noted on 01/20 of 0.70
-Chest CT shows improved airspace disease compared to prior
-Patient received doses of vancomycin and Zosyn in ED - ID suggested holding further antibiotics
Elevated Troponin, suspect Non-Ischemic Myocardial Injury insetting of hypotension
-Continue to trend troponin
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
-Consulted Hematology
Bone Marrow done on 01/14 pending
-Hgb 7.5-->6.9-->6.3-transfused->7.2-transfused-->7.6-->8.6-->8.6
-Monitor CBC closely
-Ordered PRBCs as Hgb dropped to 6.9 on January 25, 2024 with further drop to 6.3 on January 26, 2024
-As per blood bank patient has received 1+ incompatible blood previously w/o issue
-3 units of blood were ready on January 26, 2024 and 2 of those three units were +1 incompatible blood -- Was discussed over the phone with on-call client success director Dr. Vincenzo Ortega who advised to premedicate the patient with 10 mg intravenous
Dexamethasone, 25 mg IV Benadryl, and 650 mg PO Tylenol all at the same time, and then 30 minutes after getting these medications, the blood should be started
-Patient received 1 unit of PRBC on January 26, 2024 with the above pretreatment
-2nd unit of PRBC on January 27, 2024 with pretreatment
Recent Neutropenia resolved after TBO-filgrastim; s/p BM bx 01/15/24
Hypothyroidism
-Continue Synthroid
History of Left Occipital Stroke
-Continue aspirin
-Continue atorvastatin
Perirectal abscess noted on CT scan of 01/24. Of note, pt is asymptomatic
colorectal surgery consulted underwent intervention 01/29
Discussed with Sujatha LYNCH next 24 hrs, then Augmentin at time of dc
History of SVT
-Metoprolol resumed
-Monitor on Telemetry
History of Recurrent left pleural effusion
SVT
Chronic SIADH
CVA
BP
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
consideration for splenectomy. As such Dr. Sims would like to give Prevnar, she does not believe this should affect the hemolytic anemia
Bullous pemphigoid
Fatty liver
Diverticulosis
Chronic lower extremity edema
Vertebral fracture
DVT prophylaxis: Heparin Subq
Code Status: DNR confirmed with patient at time of admission
complex situation
reviewed entire situation with in room
Anticipated Discharge: 24 - 48 hours
Subjective/Interval History
-
Date of Service: January 31, 2024
Generally feeling better
Objective Data
-
Labs:
Laboratory Results
01/31/24
06:00
WBC 6.9
Hgb 8.4 L
Hct 25.6 L
Plt Count 85 L
Sodium 131 L
Potassium 4.0
Chloride 102
Carbon Dioxide 22
BUN 36 H
Creatinine 0.6 L
Glucose 93
Calcium 8.0 L
Total Bilirubin 1.0
Vital Signs:
Vital Signs
Temp Pulse Resp BP Pulse Ox
98 F 62 16 127/72 99
01/31/24 11:00 01/31/24 11:00 01/31/24 11:00 01/31/24 11:00 01/31/24 11:00
I&O
01/30/24 01/31/24 02/01/24
06:59 06:59 06:59
Intake Total 120 / 120 770 / 770
Output Total 650 / 650 1050 / 1050
Balance -530 / -530 -280 / -280
Review of Systems
-
History Source: Patient and Coordinated Provider
Constitutional: Denies Fever
EENT: Reports Other (tongue pain resolved)
Respiratory: Denies Trouble Breathing
Cardiac: Reports No Symptoms; Denies Chest Pain
Abdomen/GI: Reports No Symptoms; Denies Abdominal Pain
Skin: Reports Rash (continues to show improvement, back rash is fading, facial redness about same); Denies Itching
Neuro: Reports Tremors
Physical Exam
-
General: Well Developed, Well Nourished, No Apparent Distress and Comfortable
HEENT: Normocephalic, Atraumatic, Moist Mucous Membranes and Thrush (significantly better/resolved)
Respiratory: Clear to Auscultation; Negative Wheezes, Rales or Rhonchi
Cardiac: Regular Rhythm (intermittent extrasystole) and S1/S2
GI: Soft, Nontender and Nondistended
Musculoskeletal: Other (rt foot with gangrenous changes 2nd & 3rd toes)
Skin: Rash (maculpapular rash continues to fade, facial redness slightly better)
Neuro: Awake, Alert, Oriented and Tremors
[2024-01-31] MEDS: FIBERCON 625 MG PO (12:28)
--- NOTE | 2024-01-31 15:06 | CM ---
Per MD notation: Anticipate discharge on 02/01/24 with PO AB. [facility] for VN and PT/OT will follow after discharge.
[2024-01-31] MEDS: LIPITOR 40 MG PO (17:52)
[2024-01-31] MEDS: PREVNAR 20 0.5 ML IM (17:56)
[2024-01-31] MEDS: MYCELEX TROCHE 10 MG PO ×2 (18:02→20:20)
[2024-01-31] MEDS: MYCELEX TROCHE PO (18:02)
--- NOTE | 2024-01-31 21:00 | PTCARENOTE ---
Sitz bath not given tonight; patient states that the toilet is too low for him to get up from.
[2024-02-01 03:18] VITALS: BP 120/63
[2024-02-01 05:37] VITALS: BMI 24.1
[2024-02-01] MEDS: UNASYN IV ×2 (05:37→12:22)
[2024-02-01] MEDS: SYNTHROID 75 MCG PO (05:38)
[2024-02-01 06:21] LABS: % Basophils 0.2 % (0-2); % Immature Granulocytes 0.9 % (0-0.5); % Lymphocytes 4.5 % (20.5-51.1); % Monocytes 6.2 % (1.7-9.3); % Neutrophils 88.2 % (42.2-75.2); Absolute Lymphocytes 0.2 10^3/uL (1.2-3.4); Absolute Monocytes 0.3 10^3/uL (0.1-0.6); Absolute Neutrophils 4.1 10^3/uL (1.4-6.5); Hematocrit 25.6 % (39.0-52.0); Hemoglobin 8.4 g/dL (13.0-18.0); Mean Corp Hgb Conc. 32.8 g/dL (33.0-37.0); Mean Corpuscular Hgb 30.9 pg (27.0-31.0); Mean Corpuscular Volume 94.1 fL (80.0-94.0); Mean Platelet Volume 10.7 fL (7.4-10.4); Nucleated Red Blood Cells % 0 % (-); Platelet Count 94 10^3/uL (130-400); Red Blood Cell Count 2.72 10^6/uL (4.70-6.10); White Blood Cell Count 4.7 10^3/uL (4.8-10.8)
[2024-02-01 06:40] LABS: Blood Urea Nitrogen 32 mg/dl (9-20); Calcium 7.9 mg/dl (8.4-10.2); Carbon Dioxide 24 mmol/L (22-30); Chloride 100 mmol/L (98-107); Estimated Creatinine Clearance 101 ml/min; Glucose 79 mg/dl (70-99); Potassium 3.7 mmol/L (3.5-5.1); Sodium 129 mmol/L (135-145); eGFR > 60.00
[2024-02-01 07:00] VITALS: BP 114/79
[2024-02-01] MEDS: MIRALAX PO (09:02)
[2024-02-01] MEDS: MEPRON SUSPENSION 1500 MG PO (09:02)
[2024-02-01] MEDS: SAMSCA 7.5 MG PO (09:03)
[2024-02-01] MEDS: PROTONIX 40 MG PO (09:03)
[2024-02-01] MEDS: DELTASONE 40 MG PO (09:03)
[2024-02-01] MEDS: FIBERCON 625 MG PO (09:03)
[2024-02-01] MEDS: SODIUM CHLORIDE 1 GRAM PO (09:03)
[2024-02-01] MEDS: ASPIR LOW (ENTERIC COATED) 81 MG PO (09:03)
[2024-02-01] MEDS: URE-NA 15 GRAMS PO (09:04)
[2024-02-01] MEDS: MYCELEX TROCHE 10 MG PO ×2 (09:04→12:21)
[2024-02-01] MEDS: TOPROL XL 25 MG PO (09:05)
[2024-02-01] MEDS: HEPARIN 5000 UNITS SC (09:05)
[2024-02-01 11:00] VITALS: BP 118/67
--- NOTE | 2024-02-01 11:05 | W.PN.CRS1 ---
Today's Communication / Plan
-
okay for d/c
follow up in the office with Dr. Patel
po antibiotics
Assessment/Plan
-
POD#2 incision and drainage perirectal abscess
1. WBC normal. Vitals normal.
2. Tolerating a regular diet.
3. Daily fiber supplement and stool softeners as needed.
4. Sitz baths twice a day for 10 minutes at a time with warm water for one week.
5. Niki drain to remain in place until office visit with Dr. Patel.
6. Continue course of Augmentin as an outpatient.
7. OR cultures pending.
8. Gauze or pad to underwear area PRN to protect from drainage.
9. Follow up with Dr. Patel in 1-2 weeks in the office. Discussed all of the above with patient and Dr. Bautista. Okay for d/c from our perspective when cleared by primary team.
Subjective Data
Subjective Data
Date of Service: February 01, 2024
Patient states that he feels well. He is having no issues from surgery. He had a bowel movement.
Objective Data
-
Vital Signs
Temp Pulse Resp BP Pulse Ox
97.8 F 119 10 114/79 95
02/01/24 03:18 02/01/24 09:05 02/01/24 07:00 02/01/24 09:05 02/01/24 07:00
Intake & Output
01/31/24 02/01/24 02/02/24
06:59 06:59 06:59
Intake Total 770 / 770 1560 / 1560
Output Total 1050 / 1050 1600 / 1600
Balance -280 / -280 -40 / -40
Intake:
Oral fluids 480 / 480 1320 / 1320
IV fluids (Total) 150 / 150
Normosol 150 / 150
IV piggybacks 140 / 140 240 / 240
Output:
Urine, Voided 1050 / 1050 1600 / 1600
Other:
Number of approximated MODERATE 2
amounts of urine
Lab Results
02/01/24 05:53
02/01/24 05:53
Physical Exam
-
General: No Acute Distress and AOx3
Abdomen: Soft, Non Distended and Non Tender
Skin: Warm and Dry
--- NOTE | 2024-02-01 11:29 | W.PN.HOSP.TC ---
Today's Communication/Plan
-
dc to home
Assessment / Plan
Assessment / Plan
Assessment/Plan
Acute on Chronic Hyponatremia, with possible component of SIADH
-Nephrology consulted, recommendations appreciated
-Status post 3% sodium IV fluids
-Continue oral sodium tabs to continue
-Continue daily PO fluid restriction
Lasix 20 mg bid to resume, as per nephro
-Samsca stopped
Na slightly better at 128-->130-->130-->131-->129
Diffuse Rash, most likely drug reaction to Bactrim
-Consulted Infectious Disease, recommendations appreciated
-Consulted Hematology
-Stopped Bactrim due to rash
rash essentially resolved
-Continue Benadryl prn
-Stress dose steroids--previously changed Hydrocortisone to Prednisone 50 mg per day, now down to 40 mg
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
Recent Widespread interstitial pneumonitis with acute hypoxic respiratory insufficiency -> resolved, off O2 on rm air with SaO2 97-98%
Immunocompromised State
-Now on room air
-Replaced Bactrim with Dapsone 100mg po daily plus trimethoprim 400mg po tid completed 01/28/24. G6PD normal. Reviewed with Dr. Sims. Now on Atovaquone 1500 mg daily as per Dr. Sims
-After PJP treatment, need PJP secondary prophylaxis with atovaquone 1500mg daily while on prednisone 20mg or higher/day
-Appreciate ID evaluation and recommendations
CXR 01/27 - [facility]
Postural and action tremor
-Neurology consulted, recommendations appreciated
-Very likely due to medication and/or metabolic derangements, including prednisone
-Monitor blood pressure and heart rate
discussed restart metoprolol at lower-dose which may help with tremor symptoms (was on 50 mg daily, will start 25 mg daily), with excellent response, no obvious tremor noted
-Checked liver function and ammonia test - nl
PSVT episode today, now resolved. Had been on Toprol XL 25 mg bid, will resume prior dose and follow up with cardio as outpt
Hypotension - IMPROVED
Hyponatremia
-resume Lasix on dc
-Status post IV hydrocortisone
-Now on oral prednisone, 50mg/d, to be tapered slowly
-Monitor BP closely
-Dr. Palacios spoke with endocrinology on-call, adrenal insufficiency is unlikely in this case since patient was already on Prednisone 30 mg daily at home
-Appreciate nephrology evaluation and recommendations
-Fluid restriction
fu with nephrology (Moisés)
Gangrene right 2,3 toes with ulceration of 1,4,5 toes as well
-Discussed case on January 22, 2024 with Jessica Mo from wound care
-Ordered DENTON/TBI with severely low right sided TBI
-Consulted vascular surgery, recommendations appreciated: not really much vascular surgery can offer here from a revascularization standpoint - if wounds not healing, he would require TMA due to small vessel disease.
-Consulted podiatry, recommendations appreciated: no immediate surgery from podiatry standpoint at this time. Call placed to Dr. Rojas to discuss situation and her input is greatly appreciated. No easy answer, but plan is for him to follow up
with podiatry ~10 days post dc for reevaluation
surgical intervention is not required at this time
-Wound care consult for light dressing to separate toes and prevent infection
Thrush much better
Fluconazole stopped, will dc on Mycelex to prevent recurrence
Leukocytosis resolved and Elevated Procalcitonin - noted on 01/20 of 0.70
-Chest CT shows improved airspace disease compared to prior
-Patient received doses of vancomycin and Zosyn in ED - ID suggested holding further antibiotics
Elevated Troponin, suspect Non-Ischemic Myocardial Injury insetting of hypotension
-Continue to trend troponin
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
-Consulted Hematology
Bone Marrow done on 01/14 pending
-Hgb 7.5-->6.9-->6.3-transfused->7.2-transfused-->7.6-->8.6-->8.6-->8.4
-Monitor CBC closely
-Ordered PRBCs as Hgb dropped to 6.9 on January 25, 2024 with further drop to 6.3 on January 26, 2024
-As per blood bank patient has received 1+ incompatible blood previously w/o issue
-3 units of blood were ready on January 26, 2024 and 2 of those three units were +1 incompatible blood -- Was discussed over the phone with on-call press set up person Dr. Vincenzo Ortega who advised to premedicate the patient with 10 mg intravenous
Dexamethasone, 25 mg IV Benadryl, and 650 mg PO Tylenol all at the same time, and then 30 minutes after getting these medications, the blood should be started
-Patient received 1 unit of PRBC on January 26, 2024 with the above pretreatment
-2nd unit of PRBC on January 27, 2024 with pretreatment
Recent Neutropenia resolved after TBO-filgrastim; s/p BM bx 01/15/24
Hypothyroidism
-Continue Synthroid
History of Left Occipital Stroke
-Continue aspirin
-Continue atorvastatin
Perirectal abscess noted on CT scan of 01/24. Of note, pt is asymptomatic
colorectal surgery consulted underwent intervention 01/29
Discussed with Sujatha LYNCH next 24 hrs, then Augmentin at time of dc
History of SVT
-Metoprolol resumed
-Monitor on Telemetry
History of Recurrent left pleural effusion
SVT
Chronic SIADH
CVA
BP
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
consideration for splenectomy. As such Dr. Sims would like to give Prevnar, she does not believe this should affect the hemolytic anemia
Bullous pemphigoid
Fatty liver
Diverticulosis
Chronic lower extremity edema
Vertebral fracture
DVT prophylaxis: Heparin Subq
Code Status: DNR confirmed with patient at time of admission
complex situation
reviewed entire situation with in room and at computer
see dictated dc note
More than 30 minutes spent in discharge including
Final examination of the patient
Summarizing hospital stay
Instructions for continuing care to all relevant caregivers
Preparation of discharge records, prescriptions, and referral forms
Total time spent (in minutes): 60
Anticipated Discharge: Today
Subjective/Interval History
-
Date of Service: February 01, 2024
Feels well, anxiously awaiting dc
Objective Data
-
Labs:
Laboratory Results
02/01/24
05:53
WBC 4.7 L
Hgb 8.4 L
Hct 25.6 L
Plt Count 94 L
Sodium 129 L
Potassium 3.7
Chloride 100
Carbon Dioxide 24
BUN 32 H
Creatinine 0.5 L
Glucose 79
Calcium 7.9 L
Vital Signs:
Vital Signs
Temp Pulse Resp BP Pulse Ox
97.8 F 119 10 114/79 95
02/01/24 03:18 02/01/24 09:05 02/01/24 07:00 02/01/24 09:05 02/01/24 08:00
I&O
01/31/24 02/01/24 02/02/24
06:59 06:59 06:59
Intake Total 770 / 770 1560 / 1560
Output Total 1050 / 1050 1600 / 1600
Balance -280 / -280 -40 / -40
Review of Systems
-
History Source: Patient, Family (reviewed with ) and Coordinated Provider
Constitutional: Denies Fever
EENT: Reports Other (tongue pain resolved)
Respiratory: Denies Trouble Breathing
Cardiac: Reports Other (episode of tachycardia noted on monitor, has since resolved); Denies Chest Pain
Abdomen/GI: Reports No Symptoms; Denies Abdominal Pain
Skin: Reports Rash (continues to show improvement, back rash is fading, facial redness about same); Denies Itching
Neuro: Reports Tremors
Physical Exam
-
General: Well Developed, Well Nourished, No Apparent Distress and Comfortable
HEENT: Normocephalic, Atraumatic, Moist Mucous Membranes and Thrush (resolved)
Respiratory: Clear to Auscultation; Negative Wheezes, Rales or Rhonchi
Cardiac: Regular Rhythm (intermittent extrasystole) and S1/S2
GI: Soft, Nontender and Nondistended
Musculoskeletal: Other (rt foot with gangrenous changes 2nd & 3rd toes)
Skin: Rash (maculpapular rash on back resolved, facial redness significantly better)
Neuro: Awake, Alert, Oriented and Tremors
--- NOTE | 2024-02-01 12:28 | W.PN.NEPH.PH ---
Today's Communication / Plan
-
- lasix, salt + urea on discharge
- likely for dc today
Assessment/Plan
-
Assessment:
Hyponatremia acute on chronic
anemia, hemolytic
bilateral pulmoanry infiltrates
Diffuse blanching macular rash
ischemic stroke
Hypotension
hypothyrodism
Plan:
Continue salt tablets and urea
restart lasix 20mg on discharge today
continue with fluid restriction.
follow BMP
wean steroids per hematology
abx for PJP per ID
samsca daily scheduled while inpatient only
transfuse PRBC prn
-
-
Date of Service: February 01, 2024
CC / HPI / ROS
-
Chief Complaint:
hyponatremia
History of Present Illness:
Na stable 131
BP stable
rash seems better again
Hgb stable
Review of Systems:
no CP/SOB
Labs
-
Labs:
WBC 4.7 10^3/uL (4.8-10.8) L 02/01/24 05:53
RBC 2.72 10^6/uL (4.70-6.10) L 02/01/24 05:53
Hgb 8.4 g/dL (13.0-18.0) L 02/01/24 05:53
Hct 25.6 % (39.0-52.0) L 02/01/24 05:53
Plt Count 94 10^3/uL (130-400) L 02/01/24 05:53
Sodium 129 mmol/L (135-145) L 02/01/24 05:53
Potassium 3.7 mmol/L (3.5-5.1) 02/01/24 05:53
Chloride 100 mmol/L (98-107) 02/01/24 05:53
Carbon Dioxide 24 mmol/L (22-30) 02/01/24 05:53
BUN 32 mg/dl (9-20) H 02/01/24 05:53
Creatinine 0.5 mg/dL (0.7-1.3) L 02/01/24 05:53
eGFR > 60.00 02/01/24 05:53
Glucose 79 mg/dl (70-99) 02/01/24 05:53
Calcium 7.9 mg/dl (8.4-10.2) L 02/01/24 05:53
Zro-K-Mxqwrejlwpy Pept 2300 pg/ml 01/21/24 13:34
Albumin 3.0 g/dl (3.5-5.0) L 01/21/24 13:34
Physical Exam
-
Vital Signs:
Vital Signs
Temp Pulse Resp BP Pulse Ox
97.6 F 91 12 118/67 96
02/01/24 11:00 02/01/24 11:00 02/01/24 11:00 02/01/24 11:00 02/01/24 11:00
Cardiovascular:: Regular rate and rhythm
Respiratory:: Bilateral: CTA
Lung Excursion:: Normal
Abdomen:: Nontender and Soft
Bowel Sounds:: Normal
Extremity Edema:: +1: Bilateral:
Krishnamurthy Catheter: No
--- NOTE | 2024-02-01 12:43 | W.PN.ID1 ---
Date of Service
Date of Service: February 01, 2024
Today's Communication
- plan Augmentin 875mg po bid and doxycycline 100 mg PO BID x 10 more days. Discussed alternative of staying for sensitivity however patient is firm is decision to return home.
- c/w atovaquone as planned
Assessment / Plan
# Immunocompromised host
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
# Recent leukopenia (prior to Bactrim) -> neutropenia s/p TBO-filgrastim
- s/p BM biopsy- result pending
-Hem/Onc following
# Incidental finding horseshoe perianal/rectal abscess
- Pt asymptomatic
- 01/30 s/p I+D. Appreciate colorectal surgeon
- wound cx: GNR x3, presumptive S aureus, few enterococcus, few strep - asked lab to ID and get sensi on the S aureus
- plan Augmentin 875mg po bid and doxycycline 100 mg PO BID x 10 more days. Discussed alternative of staying for sensitivity however patient is firm is decision to return home.
# PJP prophylaxis
- Continue Atovaquone 1500mg daily while on prednisone 20mg or higher per day.
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
-risk factor for PJP - prolonged high dose steroid >1 month
BAL path: silver stain negative for Pneumocystis organisms
However BAL silver stain for PJP has low sensitivity (80's) in non-HIV immunosuppressed host.
- Responded well to empiric PJP tx, weaned off oxygen; Repeat CT chest (01/20) significant improvement of widespread airspace disease
- Completed 20 days of PJP tx on 01/27 (Bactrim x 12d /dc'd due to rash -> dapsone/trimethoprim). GGPD normal.
- Repeat CXR 01/28/24 - resolution of previous widespread interstitial opacities.
# Dry gangrene right 2, 3 toes
- Arterial duplex normal
- CT angiogram no significant stenosis
- Vascular suspect small vessel disease
#Additional Past Medical History:
Hypertension
Recurrent left pleural effusion
SVT
Hypothyroidism
Chronic SIADH
CVA
BP
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
Bullous pemphigoid
Fatty liver
Diverticulosis
Chronic lower extremity edema
Vertebral fracture
Chief Complaint
-: Other (Rash)
Subjective / Review of Systems
afebrile
bp stable
mild leukopenia
cr stable
wound cx in progress
Vital Signs / Physical Exam
Vital Signs
Vital Signs
Temp Pulse Resp BP Pulse Ox
97.6 F 91 12 118/67 96
02/01/24 11:00 02/01/24 11:00 02/01/24 11:00 02/01/24 11:00 02/01/24 11:00
Physical Exam
Constitutional: No Acute Distress
Cardiovascular: Regular Rate and S1/S2; Negative Murmur or Rub
Pulmonary: Clear and Symmetric; Negative Wheezes or Rales
Gastrointestinal: Soft, Non Tender, Non Distended and Normal Bowel Sounds
Skin: Warm and Dry; Negative Rash or Jaundice
Objective Data
Lab Data
Lab Results
02/01/24 05:53
02/01/24 05:53
PT 13.7 Sec (11.4-14.6) 01/30/24 15:26
INR 1.04 01/30/24 15:26
APTT 26.5 Sec (23.4-35.0) 01/30/24 15:26
Estimated Creat Clear 101 ml/min 02/01/24 05:53
Lactic Acid Cancelled 01/21/24 17:45
Total Bilirubin 1.0 mg/dl (0.2-1.3) 01/31/24 06:00
AST 26 U/L (17-59) 01/21/24 13:34
ALT 32 U/L (0-50) 01/21/24 13:34
Alkaline Phosphatase 109 U/L (38-126) 01/21/24 13:34
Most recent labs reviewed.
Micro Results:
01/30/24 16:45 Anaerobic Culture - Preliminary
Abscess Culture pending. Anaerobic cultures are examined after 3
days incubation. Additional information to follow.
01/30/24 16:45 Wound Culture - Preliminary
Abscess Gram negative bacilli
Staphylococcus aureus
Enterococcus species
Gram Stain - Preliminary
01/21/24 21:49 Blood Culture - Final
Blood/Venous No Growth - Final Report
01/21/24 14:03 Blood Culture - Final
Blood/Venous No Growth - Final Report
01/21/[address]: No CT evidence for pulmonary embolism. No aortic dissection. Significant improvement in widespread bilateral airspace disease seen on the prior CT scan 2.5 weeks ago. Persistent airspace disease as outlined above. No new area of
acute airspace process.
[2024-02-01] MEDS: VIBRAMYCIN 100 MG PO (12:59)
--- NOTE | 2024-02-01 15:05 | CM ---
Patient has been medically cleared for discharge to home with [facility] VN and PT/OT and a RW and bedside commode. will transport home.
[2024-02-01 15:13] VITALS: BP 106/66
--- NOTE | 2024-02-01 17:44 | W.DS.TRANS ---
DC Summary - [employer]
-
Discharge Instructions:
Sleep Apnea Risk Intermediate
Discharge Diagnosis/Procedures Hemolytic Anemia
Diet Regular
Activity No strenuous activity
Driving Restrictions No driving
Bathing Restrictions None
Blood Work CBC, BMP in 4-5 days
Other Services VN
Wound Care -Sitz baths twice a day for 7 days. Baths with
warm water for 10 minutes at a time.
-[place] drain to stay in place. This will be
assessed at your appointment with Dr. Patel.
-You may put a pad or gauze in place to protect
underwear from discharge.
-Okay to shower.
-Stool softeners as needed.
-Daily fiber supplement.
-Complete your course of antibiotics.
Instructions:
Stand-Alone Forms:
Changes to Home Medications: Yes
Discharge Medications:
DC Medications w/original date entered in [employer]
levothyroxine 75 mcg tablet 75 mcg PO DAILY@0700 Thyroid 12/03/18
folic acid 1 mg tablet 1 mg PO DAILY Supplement 09/26/23
polyethylene glycol 3350 17 gram oral powder packet ([employer]yLax) 17 g PO DAILY constipation 10/17/23
sodium chloride 1,000 mg soluble tablet 1,000 mg PO BID Electrolyte Repletion 10/17/23
cholecalciferol (vitamin D3) 25 mcg (1,000 unit) tablet 25 mcg PO DAILY Supplement 10/30/23
aspirin 81 mg tablet,delayed release 81 mg PO DAILY Blood clot prevention/tx #30 tabs 11/03/23
atorvastatin 40 mg tablet 40 mg PO QPM High cholesterol #30 tabs 11/03/23
cyanocobalamin (vitamin B-12) 1,000 mcg tablet 1,000 mcg PO DAILY Supplement #30 tabs 11/03/23
pantoprazole 40 mg tablet,delayed release 40 mg PO DAILY Gastrointestinal issue #30 tabs 11/03/23
urea 15 gram oral powder packet 1 packet PO BID Electrolyte Repletion 01/01/24
furosemide 20 mg tablet 20 mg PO DAILY hyponatremia 01/21/24
metoprolol succinate 25 mg tablet,extended release 24 hr 25 mg PO DAILY Heart disease/condition 01/21/24
amoxicillin 875 mg-potassium clavulanate 125 mg tablet 1 tab PO Q12H #20 tabs 02/01/24
atovaquone 750 mg/5 mL oral suspension 1,500 mg (10 mL) PO DAILY #210 mL 02/01/24
clotrimazole 10 mg ayan 10 mg PO 5/D #60 tabs 02/01/24
docusate sodium 100 mg capsule 100 mg PO BIDPRN PRN constipation #60 caps 02/01/24
doxycycline hyclate 100 mg tablet 100 mg PO BID #20 tabs 02/01/24
prednisone 20 mg tablet 40 mg (2 x 20 mg) PO DAILY #0 tabs 02/01/24
Home Medication Changes
Augmentin and Doxycycline for 10 days
To continue Atovaquone while pt. remains on Prednisone of 20 mg or more daily
Toprol XL reduced to 25 mg daily
Mycelex added to be taken bid as prophylaxis for thrush, but if develops, should increase to 5 x per day
Pending Results: Yes
Additional Pending Results:
final culture and sensitivity of perirectal abscess
[2024-02-02 02:14] LABS: Cold Agglutinins <1:32 (<1:32)
== END 2024-02-01 16:58 | disposition home health service (06) | DRG 981 ==
LOC: 2 NORTH 19:26
PROVIDERS: Emergency Medicine; Internal Medicine Hematology & Oncology; Physician Assistant Medical; Radiology Diagnostic Radiology; Surgery; ADMITTING PHYSICIAN Hospitalist; ATTENDING PHYSICIAN Internal Medicine; CONSULT PHYSICIAN Internal Medicine Hematology & Oncology; CONSULT PHYSICIAN Internal Medicine Infectious Disease; CONSULT PHYSICIAN Podiatrist Foot & Ankle Surgery; CONSULT PHYSICIAN Specialist; CONSULT PHYSICIAN Student in an Organized Health Care Education/Training Program; CONSULT PHYSICIAN Surgery; EMERGENCY PHYSICIAN Emergency Medicine; FAMILY PHYSICIAN Internal Medicine; OTHER PHYSICIAN Surgery Vascular Surgery
PROC: 02HV33Z Insertion of Infusion Device into Superior Vena Cava, Percutaneous Approach (ICD-10-PCS; 2024-01-24)
PROC: 30233N1 Transfusion of Nonautologous Red Blood Cells into Peripheral Vein, Percutaneous Approach (ICD-10-PCS; 2024-01-26)
PROC: 0D9P00Z Drainage of Rectum with Drainage Device, Open Approach (ICD-10-PCS; 2024-01-30)
PROC: 3E0234Z Introduction of Serum, Toxoid and Vaccine into Muscle, Percutaneous Approach (ICD-10-PCS; 2024-01-31)
DX: E22.2 Syndrome of inappropriate secretion of antidiuretic hormone (principal); B59 Pneumocystosis; B37.0 Candidal stomatitis; D59.11 Warm autoimmune hemolytic anemia; I96 Gangrene, not elsewhere classified; L12.0 Bullous pemphigoid; I47.10 Supraventricular tachycardia, unspecified; I5A Non-ischemic myocardial injury (non-traumatic); J84.9 Interstitial pulmonary disease, unspecified; D84.9 Immunodeficiency, unspecified; E27.40 Unspecified adrenocortical insufficiency; K61.1 Rectal abscess; K61.0 Anal abscess; Z66 Do not resuscitate; I95.89 Other hypotension; E03.9 Hypothyroidism, unspecified; K64.8 Other hemorrhoids; T37.0X5A Adverse effect of sulfonamides, initial encounter; G25.2 Other specified forms of tremor; D69.6 Thrombocytopenia, unspecified; B37.9 Candidiasis, unspecified; G25.0 Essential tremor; K57.30 Diverticulosis of large intestine without perforation or abscess without bleeding; L27.0 Generalized skin eruption due to drugs and medicaments taken internally; L97.509 Non-pressure chronic ulcer of other part of unspecified foot with unspecified severity; T36.8X5A Adverse effect of other systemic antibiotics, initial encounter
CPT/HCPCS: 71045; 71046; 71275; 75635; 80048; 80053; 81003; 82140; 82247; 82248; 82595; 82955; 83010; 83516; 83605; 83615; 83735; 83880; 84145; 84300; 84484; 85025; 85045; 85384; 85610; 85730; 86038; 86063; 86157; 86160; 86850; 86870; 86900; 86901; 86920; 86922; 87040; 87070; 87075; 87076; 87077; 87147; 87186; 87205; 90677; 93005; 93922; 93925; 96365; 96367; 97116; 97162; 97166; 97530; 97535; 99291; G0009; P9016; Q9967

== ENCOUNTER → 2024-02-06 10:46 | Outpatient (REF) | payer MEDICARE, BC, SELFPAY ==
[2024-02-06 11:31] LABS: % Basophils 0.4 % (0-2); % Immature Granulocytes 1.1 % (0-0.5); % Lymphocytes 2.3 % (20.5-51.1); % Monocytes 6.7 % (1.7-9.3); % Neutrophils 89.5 % (42.2-75.2); Absolute Immature Granulocytes 0.1 10^3/uL (0-0.05); Absolute Lymphocytes 0.2 10^3/uL (1.2-3.4); Absolute Monocytes 0.5 10^3/uL (0.1-0.6); Absolute Neutrophils 7.1 10^3/uL (1.4-6.5); Hematocrit 32.9 % (39.0-52.0); Hemoglobin 10.7 g/dL (13.0-18.0); Mean Corp Hgb Conc. 32.5 g/dL (33.0-37.0); Mean Corpuscular Hgb 30.9 pg (27.0-31.0); Mean Corpuscular Volume 95.1 fL (80.0-94.0); Nucleated Red Blood Cells % 0 % (-); Platelet Count 274 10^3/uL (130-400); Red Blood Cell Count 3.46 10^6/uL (4.70-6.10); Red Cell Dist. Width 20.3 % (11.5-14.5); White Blood Cell Count 7.9 10^3/uL (4.8-10.8)
[2024-02-06 13:07] LABS: ALT (SGPT) 39 U/L (0-50); AST (SGOT) 23 U/L (17-59); Albumin 3.3 g/dl (3.5-5.0); Blood Urea Nitrogen 44 mg/dl (9-20); Calcium 8.8 mg/dl (8.4-10.2); Carbon Dioxide 23 mmol/L (22-30); Chloride 94 mmol/L (98-107); Glucose 146 mg/dl (70-99); Potassium 3.9 mmol/L (3.5-5.1); Sodium 130 mmol/L (135-145); Total Bilirubin 0.9 mg/dl (0.2-1.3); Total Protein 5.4 g/dl (6.3-8.2); eGFR > 60.00
[2024-02-06 13:12] LABS: Alkaline Phosphatase 192 U/L (38-126)
== END ==
LOC: REG 10:46
PROVIDERS: ATTENDING PHYSICIAN Internal Medicine
DX: I10 Essential (primary) hypertension (principal); E87.1 Hypo-osmolality and hyponatremia; D50.0 Iron deficiency anemia secondary to blood loss (chronic)
CPT/HCPCS: 36415; 80053; 85025

== ENCOUNTER → 2024-02-13 10:38 | Outpatient (REF) | payer MEDICARE, BC, SELFPAY ==
[2024-02-13 11:28] LABS: % Basophils 0.3 % (0-2); % Immature Granulocytes 3.2 % (0-0.5); % Lymphocytes 1.1 % (20.5-51.1); % Monocytes 2.2 % (1.7-9.3); % Neutrophils 93.2 % (42.2-75.2); Absolute Immature Granulocytes 0.4 10^3/uL (0-0.05); Absolute Lymphocytes 0.1 10^3/uL (1.2-3.4); Absolute Monocytes 0.3 10^3/uL (0.1-0.6); Absolute Neutrophils 10.8 10^3/uL (1.4-6.5); Hematocrit 33.1 % (39.0-52.0); Hemoglobin 10.7 g/dL (13.0-18.0); Mean Corp Hgb Conc. 32.3 g/dL (33.0-37.0); Mean Corpuscular Hgb 32.1 pg (27.0-31.0); Mean Corpuscular Volume 99.4 fL (80.0-94.0); Nucleated Red Blood Cells % 0.2 % (-); Red Blood Cell Count 3.33 10^6/uL (4.70-6.10); Red Cell Dist. Width 18.3 % (11.5-14.5); White Blood Cell Count 11.6 10^3/uL (4.8-10.8)
[2024-02-13 12:04] LABS: Mean Platelet Volume 9.9 fL (7.4-10.4)
[2024-02-13 12:05] LABS: Platelet Count 202 10^3/uL (130-400)
[2024-02-13 12:44] LABS: Blood Urea Nitrogen 44 mg/dl (9-20); Calcium 8.8 mg/dl (8.4-10.2); Carbon Dioxide 25 mmol/L (22-30); Chloride 96 mmol/L (98-107); Glucose 145 mg/dl (70-99); Potassium 3.8 mmol/L (3.5-5.1); Sodium 131 mmol/L (135-145); eGFR > 60.00
== END ==
LOC: REG 10:38
PROVIDERS: ATTENDING PHYSICIAN Internal Medicine Hematology & Oncology; FAMILY PHYSICIAN Internal Medicine
DX: D59.9 Acquired hemolytic anemia, unspecified (principal); L12.9 Pemphigoid, unspecified
CPT/HCPCS: 36415; 80048; 85025

== ENCOUNTER → 2024-02-20 09:57 | Outpatient (REF) | payer MEDICARE, BC, SELFPAY ==
[2024-02-20 10:46] LABS: % Basophils 0.5 % (0-2); % Eosinophils 0.1 % (0-6); % Lymphocytes 1.4 % (20.5-51.1); % Monocytes 3.1 % (1.7-9.3); % Neutrophils 88.9 % (42.2-75.2); Absolute Basophils 0.1 10^3/uL (0-0.2); Absolute Immature Granulocytes 0.8 10^3/uL (0-0.05); Absolute Lymphocytes 0.2 10^3/uL (1.2-3.4); Absolute Monocytes 0.4 10^3/uL (0.1-0.6); Absolute Neutrophils 11.2 10^3/uL (1.4-6.5); Hematocrit 32.7 % (39.0-52.0); Hemoglobin 10.3 g/dL (13.0-18.0); Mean Corp Hgb Conc. 31.5 g/dL (33.0-37.0); Mean Corpuscular Volume 101.6 fL (80.0-94.0); Mean Platelet Volume 10.2 fL (7.4-10.4); Nucleated Red Blood Cells % 0 % (-); Platelet Count 242 10^3/uL (130-400); Red Blood Cell Count 3.22 10^6/uL (4.70-6.10); Red Cell Dist. Width 17.2 % (11.5-14.5); White Blood Cell Count 12.6 10^3/uL (4.8-10.8)
[2024-02-20 11:12] LABS: Blood Urea Nitrogen 47 mg/dl (9-20); Calcium 9.1 mg/dl (8.4-10.2); Carbon Dioxide 24 mmol/L (22-30); Chloride 100 mmol/L (98-107); Glucose 129 mg/dl (70-99); Sodium 133 mmol/L (135-145); eGFR > 60.00
== END ==
LOC: REG 09:57
PROVIDERS: ATTENDING PHYSICIAN Internal Medicine Hematology & Oncology; FAMILY PHYSICIAN Internal Medicine; REFERRING PHYSICIAN Specialist
DX: D59.9 Acquired hemolytic anemia, unspecified (principal); L12.9 Pemphigoid, unspecified
CPT/HCPCS: 36415; 80048; 85025

== ENCOUNTER → 2024-02-27 09:44 | Outpatient (REF) | payer MEDICARE, BC, SELFPAY ==
[2024-02-27 10:38] LABS: % Basophils 0.4 % (0-2); % Eosinophils 0.1 % (0-6); % Immature Granulocytes 6.8 % (0-0.5); % Lymphocytes 1.4 % (20.5-51.1); % Monocytes 3.1 % (1.7-9.3); % Neutrophils 88.2 % (42.2-75.2); Absolute Basophils 0.1 10^3/uL (0-0.2); Absolute Immature Granulocytes 0.8 10^3/uL (0-0.05); Absolute Lymphocytes 0.2 10^3/uL (1.2-3.4); Absolute Monocytes 0.4 10^3/uL (0.1-0.6); Absolute Neutrophils 10.1 10^3/uL (1.4-6.5); Hematocrit 30.2 % (39.0-52.0); Mean Corp Hgb Conc. 33.1 g/dL (33.0-37.0); Mean Corpuscular Hgb 33.3 pg (27.0-31.0); Mean Corpuscular Volume 100.7 fL (80.0-94.0); Nucleated Red Blood Cells % 0 % (-); Platelet Count 263 10^3/uL (130-400); Red Cell Dist. Width 16.7 % (11.5-14.5); White Blood Cell Count 11.5 10^3/uL (4.8-10.8)
[2024-02-27 11:43] LABS: Blood Urea Nitrogen 45 mg/dl (9-20); Carbon Dioxide 25 mmol/L (22-30); Chloride 100 mmol/L (98-107); Glucose 132 mg/dl (70-99); Potassium 4.3 mmol/L (3.5-5.1); Sodium 133 mmol/L (135-145); eGFR > 60.00
== END ==
LOC: REG 09:44
PROVIDERS: ATTENDING PHYSICIAN Internal Medicine Hematology & Oncology; FAMILY PHYSICIAN Internal Medicine
DX: D59.9 Acquired hemolytic anemia, unspecified (principal); L12.9 Pemphigoid, unspecified
CPT/HCPCS: 36415; 80048; 85025

== ENCOUNTER → 2024-03-05 09:41 | Outpatient (REF) | payer MEDICARE, BC, SELFPAY ==
[2024-03-05 10:36] LABS: % Basophils 1.1 % (0-2); % Eosinophils 0.6 % (0-6); % Immature Granulocytes 0.6 % (0-0.5); % Lymphocytes 17.7 % (20.5-51.1); % Monocytes 17.1 % (1.7-9.3); % Neutrophils 62.9 % (42.2-75.2); Absolute Lymphocytes 0.3 10^3/uL (1.2-3.4); Absolute Monocytes 0.3 10^3/uL (0.1-0.6); Absolute Neutrophils 1.1 10^3/uL (1.4-6.5); Hematocrit 27.2 % (39.0-52.0); Hemoglobin 8.9 g/dL (13.0-18.0); Mean Corp Hgb Conc. 32.7 g/dL (33.0-37.0); Mean Corpuscular Hgb 33.5 pg (27.0-31.0); Mean Corpuscular Volume 102.3 fL (80.0-94.0); Mean Platelet Volume 9.5 fL (7.4-10.4); Nucleated Red Blood Cells % 1.7 % (-); Platelet Count 303 10^3/uL (130-400); Red Blood Cell Count 2.66 10^6/uL (4.70-6.10); White Blood Cell Count 1.8 10^3/uL (4.8-10.8)
[2024-03-05 11:20] LABS: Blood Urea Nitrogen 37 mg/dl (9-20); Calcium 8.7 mg/dl (8.4-10.2); Carbon Dioxide 24 mmol/L (22-30); Chloride 102 mmol/L (98-107); Glucose 117 mg/dl (70-99); Potassium 4.3 mmol/L (3.5-5.1); Sodium 133 mmol/L (135-145); eGFR > 60.00
== END ==
LOC: REG 09:41
PROVIDERS: ATTENDING PHYSICIAN Internal Medicine Hematology & Oncology; FAMILY PHYSICIAN Internal Medicine; REFERRING PHYSICIAN Specialist
DX: D59.9 Acquired hemolytic anemia, unspecified (principal); L12.9 Pemphigoid, unspecified
CPT/HCPCS: 36415; 80048; 85025

== ENCOUNTER → 2024-03-12 10:08 | Outpatient (REF) | payer MEDICARE, BC, SELFPAY ==
[2024-03-12 11:30] LABS: % Basophils 0.2 % (0-2); % Immature Granulocytes 2.1 % (0-0.5); % Lymphocytes 2.3 % (20.5-51.1); % Monocytes 5.3 % (1.7-9.3); % Neutrophils 90.1 % (42.2-75.2); Absolute Immature Granulocytes 0.2 10^3/uL (0-0.05); Absolute Lymphocytes 0.2 10^3/uL (1.2-3.4); Absolute Monocytes 0.5 10^3/uL (0.1-0.6); Absolute Neutrophils 7.7 10^3/uL (1.4-6.5); Hematocrit 31.7 % (39.0-52.0); Hemoglobin 10.3 g/dL (13.0-18.0); Mean Corp Hgb Conc. 32.5 g/dL (33.0-37.0); Mean Corpuscular Hgb 32.7 pg (27.0-31.0); Mean Corpuscular Volume 100.6 fL (80.0-94.0); Mean Platelet Volume 9.6 fL (7.4-10.4); Nucleated Red Blood Cells % 0 % (-); Platelet Count 327 10^3/uL (130-400); Red Blood Cell Count 3.15 10^6/uL (4.70-6.10); White Blood Cell Count 8.5 10^3/uL (4.8-10.8)
[2024-03-12 12:03] LABS: Blood Urea Nitrogen 41 mg/dl (9-20); Carbon Dioxide 24 mmol/L (22-30); Chloride 99 mmol/L (98-107); Glucose 118 mg/dl (70-99); Potassium 4.7 mmol/L (3.5-5.1); Sodium 132 mmol/L (135-145); eGFR > 60.00
== END ==
LOC: REG 10:08
PROVIDERS: ATTENDING PHYSICIAN Internal Medicine Hematology & Oncology; FAMILY PHYSICIAN Internal Medicine; REFERRING PHYSICIAN Specialist
DX: D59.9 Acquired hemolytic anemia, unspecified (principal); L12.9 Pemphigoid, unspecified
CPT/HCPCS: 36415; 80048; 85025

== ENCOUNTER → 2024-03-19 09:42 | Outpatient (REF) | payer MEDICARE, BC, SELFPAY ==
[2024-03-19 11:01] LABS: % Basophils 0.2 % (0-2); % Immature Granulocytes 2.7 % (0-0.5); % Lymphocytes 1.2 % (20.5-51.1); % Monocytes 1.7 % (1.7-9.3); % Neutrophils 94.2 % (42.2-75.2); Absolute Immature Granulocytes 0.4 10^3/uL (0-0.05); Absolute Lymphocytes 0.2 10^3/uL (1.2-3.4); Absolute Monocytes 0.2 10^3/uL (0.1-0.6); Absolute Neutrophils 12.4 10^3/uL (1.4-6.5); Hematocrit 31.4 % (39.0-52.0); Hemoglobin 10.4 g/dL (13.0-18.0); Mean Corp Hgb Conc. 33.1 g/dL (33.0-37.0); Mean Corpuscular Hgb 32.6 pg (27.0-31.0); Mean Corpuscular Volume 98.4 fL (80.0-94.0); Mean Platelet Volume 9.5 fL (7.4-10.4); Nucleated Red Blood Cells % 0 % (-); Platelet Count 348 10^3/uL (130-400); Red Blood Cell Count 3.19 10^6/uL (4.70-6.10); Red Cell Dist. Width 14.5 % (11.5-14.5); White Blood Cell Count 13.2 10^3/uL (4.8-10.8)
[2024-03-19 11:31] LABS: Blood Urea Nitrogen 43 mg/dl (9-20); Calcium 9.1 mg/dl (8.4-10.2); Carbon Dioxide 22 mmol/L (22-30); Chloride 101 mmol/L (98-107); Glucose 155 mg/dl (70-99); Potassium 4.5 mmol/L (3.5-5.1); Sodium 134 mmol/L (135-145); eGFR > 60.00
== END ==
LOC: REG 09:42
PROVIDERS: ATTENDING PHYSICIAN Internal Medicine Hematology & Oncology; FAMILY PHYSICIAN Internal Medicine; REFERRING PHYSICIAN Specialist
DX: D59.9 Acquired hemolytic anemia, unspecified (principal); L12.9 Pemphigoid, unspecified
CPT/HCPCS: 36415; 80048; 85025

== ENCOUNTER → 2024-03-26 09:43 | Outpatient (REF) | payer MEDICARE, BC, SELFPAY ==
[2024-03-26 10:34] LABS: Blood Urea Nitrogen 45 mg/dl (9-20); Calcium 9.3 mg/dl (8.4-10.2); Carbon Dioxide 23 mmol/L (22-30); Chloride 102 mmol/L (98-107); Glucose 161 mg/dl (70-99); Potassium 4.3 mmol/L (3.5-5.1); Sodium 136 mmol/L (135-145); eGFR > 60.00
[2024-03-26 10:52] LABS: % Basophils 0.2 % (0-2); % Immature Granulocytes 2.8 % (0-0.5); % Lymphocytes 1.4 % (20.5-51.1); % Monocytes 1.8 % (1.7-9.3); % Neutrophils 93.8 % (42.2-75.2); Absolute Immature Granulocytes 0.4 10^3/uL (0-0.05); Absolute Lymphocytes 0.2 10^3/uL (1.2-3.4); Absolute Monocytes 0.2 10^3/uL (0.1-0.6); Absolute Neutrophils 12.3 10^3/uL (1.4-6.5); Hematocrit 32.9 % (39.0-52.0); Mean Corp Hgb Conc. 33.4 g/dL (33.0-37.0); Mean Corpuscular Hgb 33.4 pg (27.0-31.0); Mean Platelet Volume 9.5 fL (7.4-10.4); Nucleated Red Blood Cells % 0 % (-); Platelet Count 316 10^3/uL (130-400); Red Blood Cell Count 3.29 10^6/uL (4.70-6.10); Red Cell Dist. Width 14.2 % (11.5-14.5); White Blood Cell Count 13.1 10^3/uL (4.8-10.8)
== END ==
LOC: REG 09:43
PROVIDERS: ATTENDING PHYSICIAN Internal Medicine Hematology & Oncology; FAMILY PHYSICIAN Internal Medicine
DX: D59.9 Acquired hemolytic anemia, unspecified (principal); L12.9 Pemphigoid, unspecified
CPT/HCPCS: 36415; 80048; 85025

== ENCOUNTER → 2024-04-02 09:47 | Outpatient (REF) | payer MEDICARE, BC, SELFPAY ==
[2024-04-02 11:25] LABS: % Basophils 0.1 % (0-2); % Eosinophils 0.1 % (0-6); % Immature Granulocytes 1.3 % (0-0.5); % Lymphocytes 1.3 % (20.5-51.1); % Monocytes 1.9 % (1.7-9.3); % Neutrophils 95.3 % (42.2-75.2); Absolute Immature Granulocytes 0.2 10^3/uL (0-0.05); Absolute Lymphocytes 0.2 10^3/uL (1.2-3.4); Absolute Monocytes 0.3 10^3/uL (0.1-0.6); Absolute Neutrophils 12.8 10^3/uL (1.4-6.5); Hematocrit 31.5 % (39.0-52.0); Hemoglobin 10.4 g/dL (13.0-18.0); Mean Corpuscular Volume 96.9 fL (80.0-94.0); Mean Platelet Volume 10.4 fL (7.4-10.4); Nucleated Red Blood Cells % 0 % (-); Platelet Count 290 10^3/uL (130-400); Red Blood Cell Count 3.25 10^6/uL (4.70-6.10); White Blood Cell Count 13.5 10^3/uL (4.8-10.8)
[2024-04-02 12:11] LABS: Blood Urea Nitrogen 43 mg/dl (9-20); Carbon Dioxide 22 mmol/L (22-30); eGFR > 60.00
[2024-04-02 12:20] LABS: Calcium 9.1 mg/dl (8.4-10.2); Chloride 102 mmol/L (98-107); Glucose 148 mg/dl (70-99); Potassium 4.3 mmol/L (3.5-5.1); Sodium 134 mmol/L (135-145)
== END ==
LOC: REG 09:47
PROVIDERS: ATTENDING PHYSICIAN Internal Medicine Hematology & Oncology; FAMILY PHYSICIAN Internal Medicine
DX: D59.9 Acquired hemolytic anemia, unspecified (principal); L12.9 Pemphigoid, unspecified
CPT/HCPCS: 36415; 80048; 85025

== ENCOUNTER → 2024-04-09 09:54 | Outpatient (REF) | payer MEDICARE, BC, SELFPAY ==
[2024-04-09 11:11] LABS: % Basophils 0.3 % (0-2); % Eosinophils 0.1 % (0-6); % Immature Granulocytes 2.7 % (0-0.5); % Lymphocytes 1.6 % (20.5-51.1); % Monocytes 2.4 % (1.7-9.3); % Neutrophils 92.9 % (42.2-75.2); Absolute Immature Granulocytes 0.3 10^3/uL (0-0.05); Absolute Lymphocytes 0.2 10^3/uL (1.2-3.4); Absolute Monocytes 0.3 10^3/uL (0.1-0.6); Absolute Neutrophils 9.7 10^3/uL (1.4-6.5); Hematocrit 31.2 % (39.0-52.0); Hemoglobin 10.4 g/dL (13.0-18.0); Mean Corp Hgb Conc. 33.3 g/dL (33.0-37.0); Mean Platelet Volume 10.1 fL (7.4-10.4); Nucleated Red Blood Cells % 0 % (-); Platelet Count 291 10^3/uL (130-400); Red Blood Cell Count 3.25 10^6/uL (4.70-6.10); Red Cell Dist. Width 13.5 % (11.5-14.5); White Blood Cell Count 10.4 10^3/uL (4.8-10.8)
[2024-04-09 11:46] LABS: Blood Urea Nitrogen 44 mg/dl (9-20); Calcium 9.2 mg/dl (8.4-10.2); Carbon Dioxide 24 mmol/L (22-30); Chloride 100 mmol/L (98-107); Glucose 156 mg/dl (70-99); Potassium 4.4 mmol/L (3.5-5.1); Sodium 134 mmol/L (135-145); eGFR > 60.00
== END ==
LOC: REG 09:54
PROVIDERS: ATTENDING PHYSICIAN Internal Medicine Hematology & Oncology; FAMILY PHYSICIAN Internal Medicine
DX: D59.9 Acquired hemolytic anemia, unspecified (principal); L12.9 Pemphigoid, unspecified
CPT/HCPCS: 36415; 80048; 85025

== ENCOUNTER → 2024-04-16 10:16 | Outpatient (REF) | payer MEDICARE, BC, SELFPAY ==
[2024-04-16 12:08] LABS: ALT (SGPT) 36 U/L (0-50); AST (SGOT) 35 U/L (17-59); Albumin 4.4 g/dl (3.5-5.0); Alkaline Phosphatase 86 U/L (38-126); Blood Urea Nitrogen 47 mg/dl (9-20); Calcium 9.4 mg/dl (8.4-10.2); Carbon Dioxide 23 mmol/L (22-30); Chloride 101 mmol/L (98-107); Glucose 117 mg/dl (70-99); Potassium 4.9 mmol/L (3.5-5.1); Sodium 133 mmol/L (135-145); Total Bilirubin 1.6 mg/dl (0.2-1.3); Total Protein 6.3 g/dl (6.3-8.2); eGFR > 60.00
[2024-04-16 16:54] LABS: % Basophils 0.3 % (0-2); % Immature Granulocytes 2.8 % (0-0.5); % Lymphocytes 3.4 % (20.5-51.1); % Neutrophils 86.5 % (42.2-75.2); Absolute Immature Granulocytes 0.3 10^3/uL (0-0.05); Absolute Lymphocytes 0.3 10^3/uL (1.2-3.4); Absolute Monocytes 0.7 10^3/uL (0.1-0.6); Hematocrit 32.7 % (39.0-52.0); Hemoglobin 10.8 g/dL (13.0-18.0); Mean Platelet Volume 9.8 fL (7.4-10.4); Nucleated Red Blood Cells % 0 % (-); Platelet Count 297 10^3/uL (130-400); Red Blood Cell Count 3.27 10^6/uL (4.70-6.10); Red Cell Dist. Width 13.6 % (11.5-14.5); White Blood Cell Count 9.3 10^3/uL (4.8-10.8)
== END ==
LOC: REG 10:16
PROVIDERS: ATTENDING PHYSICIAN Internal Medicine Hematology & Oncology; FAMILY PHYSICIAN Internal Medicine; REFERRING PHYSICIAN Specialist
DX: D59.9 Acquired hemolytic anemia, unspecified (principal); L12.9 Pemphigoid, unspecified
CPT/HCPCS: 36415; 80053; 85025

== ENCOUNTER → 2024-04-23 10:33 | Outpatient (REF) | payer MEDICARE, BC, SELFPAY ==
[2024-04-23 11:14] LABS: % Basophils 0.5 % (0-2); % Eosinophils 0.2 % (0-6); % Immature Granulocytes 1.5 % (0-0.5); % Lymphocytes 2.9 % (20.5-51.1); % Monocytes 5.5 % (1.7-9.3); % Neutrophils 89.4 % (42.2-75.2); Absolute Immature Granulocytes 0.1 10^3/uL (0-0.05); Absolute Lymphocytes 0.2 10^3/uL (1.2-3.4); Absolute Monocytes 0.3 10^3/uL (0.1-0.6); Absolute Neutrophils 5.2 10^3/uL (1.4-6.5); Hematocrit 31.3 % (39.0-52.0); Hemoglobin 10.1 g/dL (13.0-18.0); Mean Corp Hgb Conc. 32.3 g/dL (33.0-37.0); Mean Corpuscular Hgb 32.5 pg (27.0-31.0); Mean Corpuscular Volume 100.6 fL (80.0-94.0); Mean Platelet Volume 9.8 fL (7.4-10.4); Nucleated Red Blood Cells % 0 % (-); Platelet Count 300 10^3/uL (130-400); Red Blood Cell Count 3.11 10^6/uL (4.70-6.10); Red Cell Dist. Width 13.9 % (11.5-14.5); White Blood Cell Count 5.9 10^3/uL (4.8-10.8)
[2024-04-23 12:07] LABS: ALT (SGPT) 121 U/L (0-50); AST (SGOT) 98 U/L (17-59); Albumin 4.1 g/dl (3.5-5.0); Alkaline Phosphatase 125 U/L (38-126); Blood Urea Nitrogen 44 mg/dl (9-20); Calcium 9.3 mg/dl (8.4-10.2); Carbon Dioxide 21 mmol/L (22-30); Chloride 99 mmol/L (98-107); Glucose 130 mg/dl (70-99); Potassium 4.6 mmol/L (3.5-5.1); Sodium 131 mmol/L (135-145); Total Bilirubin 2.3 mg/dl (0.2-1.3); eGFR > 60.00
== END ==
LOC: REG 10:33
PROVIDERS: ATTENDING PHYSICIAN Internal Medicine Hematology & Oncology; FAMILY PHYSICIAN Internal Medicine
DX: D59.9 Acquired hemolytic anemia, unspecified (principal); L12.9 Pemphigoid, unspecified
CPT/HCPCS: 36415; 80053; 85025

== ENCOUNTER 2024-04-30 15:28 | Inpatient (IN) | payer MEDICARE, BC, SELFPAY ==
[2024-04-30] VITALS (11 sets, daily range): BP systolic 93–107; BP diastolic 56–72; BMI 28.2; BMI 27.7
--- NOTE | 2024-04-30 10:46 | ED.GENMED ---
History of Present Illness
<Laura Martin PA-C - Last Filed: 04/30/24 19:22>
General
Chief Complaint: Fatigue
Source: patient
Exam Limitations: none
Time Seen by Provider: 04/30/24 10:44
Nursing documentation reviewed up to this point in time: agreed with
History of Present Illness
History of Present Illness:
78-year-old male with a past medical history of hyponatremia, chronic steroid use, warm AHA, bullous pemphigoid presenting emergency department today with concerns of generalized weakness and fatigue for the past few days. Patient reports that
normally he ambulates without difficulty but recently had to start using his walker again due to the weakness. present in room notes that patient also had a fever yesterday. Patient denies any fevers or chills today. Patient has any nausea
or vomiting, belly pain. Patient denies any chest pain or shortness of breath, cough, URI symptoms. Patient states this is how he feels when he needs a transfusion. Patient denies any dizziness, lightheadedness, headache. Patient denies any
recent falls. Patient follows with Dr. Hayden from [facility], of note he recently stopped a medication called azathioprine on 04/25/24 for his warm AHA. also reports that his heart rate has been higher than his baseline, his heart rate
has been jumping into the 110s and 120s at times.
Past History
<Laura Martin PA-C - Last Filed: 04/30/24 19:22>
Past History
ED Past Medical History: HTN, Seizures (Pt had ONE seizure years ago and found to be significantly hyponatremic. Takes Na tablets daily and is water restricted since.), Hypothyroidism and Other (bullous pemphigous. Hemolytic anemia)
ED Past Surgical History: Tonsilectomy
Social History
Tobacco: Former smoker
Alcohol: Occasional
Drug: None
Personal:
Living: with family
Employment: Retired
Family History
Family History: Other (Noncontributory)
Review of Systems
<Laura Martin PA-C - Last Filed: 04/30/24 19:22>
Review of Systems
All Other Systems: ROS reviewed and negative except as documented in HPI and ROS
Phy Exam
<Laura Martin PA-C - Last Filed: 04/30/24 19:22>
Physical Exam
Physical Exam:
General: Patient appears fatigued, pale, however nontoxic-appearing and in no acute distress
Skin: Warm and dry, scattered areas of ecchymosis in bilateral upper extremities.
Head: Normocephalic, atraumatic
Eyes: Sclera non-icteric. EOMs intact. PERRLA.
Cardiac: Regular rate and rhythm, no murmurs.
Peripheral Vascular: No lower extremity swelling or edema
Pulm: Patient is mildly tachypneic otherwise normal respiratory effort, no wheezes, rales, rhonchi
Abdomen: No abdominal tenderness to palpation
Neuro: CN II-XII intact, no focal neurologic deficits.
Psychiatric: Appropriate mood and affect.
Course
<Laura Martin PA-C - Last Filed: 04/30/24 19:22>
Orders/Labs/Results
Orders:
Orders
04/30/24 11:56
Hydrocortisone Sod Succinate [Solu-Cortef] 200 mg IV NOW STA
04/30/24 13:01
0.9% Sodium Chloride 1000 ml [Nss] 1,000 ml IV BOLUS
04/30/24 13:14
Type+Screen Urgent
Complete Blood Count/With Diff Urgent
Comprehensive Metabolic Panel Urgent
Manual Differential Urgent
04/30/24 14:56
Consult Hematology [HEMATOLOGY CONSULT] Urgent
Consulting Provider: Nils Frye
Was physician already notified: Yes
04/30/24 15:06
Admit/Transfer Patient As Directed
Co-Sign Provider:
Level of Care: Inpatient admission
Assign to:: IMU- Intermediate Care
Physician / Group: hospitalist
Diagnosis: fatigue,leucopenia
Reason for Hospitalization: fatigue, leucopenia
Expected length of stay greater than two midnights?: Yes
ELOS- Estimated Length of Stay in days: 3
I certify the patient meets the requirements for IP care: Yes
PRN Pain Medication Management As Directed
May give lesser potent ordered pain med per pt: Yes
preference::
Protocol:: Medication orders for pain may be administered in a
manner that supports deferring to patient preference
when the pt is:
- Requesting an ordered lesser potent pain medication.
Least to most potent pain medications are defined
as: acetaminophen < NSAID < tramadol < opioids
(morphine, oxycodone, hydromorphone).
- Requesting a lesser dose of the same medication IF
ORDERED.
- Requesting a less intrusive route of administration
if both routes are prescribed by the provider (PO <
IV).
04/30/24 15:09
Urinalysis Reflex To Culture Urgent
Date Specimen was Collected: 04/30/24
Time Specimen was Collected: 15:07
Urine Microscopic Reflex Cult Urgent
Blood Culture Urgent
TERRELL Source: Blood/Venous
Specimen Description:
04/30/24 15:16
Code Status As Directed
Resuscitation Status: Full Code
04/30/24 16:57
Bisacodyl [Dulcolax] 10 mg RECTAL [id number] PRN
Docusate W/Senna [Senokot-S] 1 tablet PO BIDPRN PRN
Polyethylene Glycol Powder [Miralax] 17 grams PO DAILYPRN PRN
04/30/24 16:57
Activity As Directed
Activity Level: As Tolerated
Pneumatic Compression Sleeves As Directed
Type: Knee high
Vital Signs As Directed
Frequency: Per unit guidelines
DX Deep Vein Thrombosis Video Routine
04/30/24 17:00
Furosemide [Lasix] 20 mg PO BID@0800,1600
04/30/24 18:00
Atorvastatin [Lipitor] 40 mg PO QPM
Docusate Sodium [Colace] 200 mg PO QPM
04/30/24 20:00
Sodium Chloride 1 gram PO BID
Urea (Non-Form) [Ure-Na] 15 grams PO BID
05/01/24 06:00
Levothyroxine [Synthroid] 75 mcg PO DAILY@0600
05/01/24 08:00
Aspirin Low Dose EC [Aspir Low (Enteric Coated)] 81 mg PO DAILY
Cholecalciferol (Vitamin D3) [VITAMIN D3 (cholecalciferol)] 25 mcg PO DAILY
Cyanocobalamin [Vitamin B-12] 1,000 mcg PO DAILY
FOLic ACID [Folvite] 1 mg PO DAILY
Metoprolol Xl [Toprol Xl] 25 mg PO DAILY
Pantoprazole [Protonix] 40 mg PO DAILY
Prednisone [Deltasone] 30 mg PO DAILY
Abnormal Lab Results
04/30/24 04/30/24
13:14 15:09
WBC 1.0 L* 10^3/uL
(4.8-10.8)
RBC 2.43 L 10^6/uL
(4.70-6.10)
Hgb 7.8 L g/dL
(13.0-18.0)
Hct 22.7 L %
(39.0-52.0)
MCH 32.1 H pg
(27.0-31.0)
Abs Neuts (Manual) 0.4 L* 10^3/uL
(1.4-6.5)
Segmented Neutrophils 38 L %
(42-75)
Band Neutrophils 4 H %
(0-3)
Lymphocytes (Manual) 15 L %
(20-51)
Monocytes (Manual) 40 H %
(2-9)
Sodium 128 L mmol/L
(135-145)
Chloride 95 L mmol/L
(98-107)
BUN 38 H mg/dl
(9-20)
Glucose 133 H mg/dl
(70-99)
Calcium 8.2 L mg/dl
(8.4-10.2)
Total Bilirubin 2.4 H mg/dl
(0.2-1.3)
ALT 72 H U/L
(0-50)
Total Protein 4.8 L g/dl
(6.3-8.2)
Albumin 2.8 L g/dl
(3.5-5.0)
Urine Albumin (Reflex) 1+ A
(Neg - Trace)
Antibody Screen Positive A
(Negative)
04/30/24 13:14
04/30/24 13:14
Vital Signs
Initial and Last Documented VS:
Initial Vital Signs
BP
104/57
04/30/24 10:42
Last Documented Vital Signs
Temp Pulse Resp BP Pulse Ox
97.5 F 81 24 107/72 100
04/30/24 17:25 04/30/24 17:15 04/30/24 17:15 04/30/24 17:07 04/30/24 17:15
<Geronimo Koroma, DO - Last Filed: 04/30/24 12:51>
Orders/Labs/Results
Orders:
Orders
04/30/24 11:56
Hydrocortisone Sod Succinate [Solu-Cortef] 200 mg IV NOW STA
04/30/24 13:01
0.9% Sodium Chloride 1000 ml [Nss] 1,000 ml IV BOLUS
04/30/24 13:14
Type+Screen Urgent
Complete Blood Count/With Diff Urgent
Comprehensive Metabolic Panel Urgent
Manual Differential Urgent
04/30/24 14:56
Consult Hematology [HEMATOLOGY CONSULT] Urgent
Consulting Provider: Nils Frye
Was physician already notified: Yes
04/30/24 15:06
Admit/Transfer Patient As Directed
Co-Sign Provider:
Level of Care: Inpatient admission
Assign to:: IMU- Intermediate Care
Physician / Group: hospitalist
Diagnosis: fatigue,leucopenia
Reason for Hospitalization: fatigue, leucopenia
Expected length of stay greater than two midnights?: Yes
ELOS- Estimated Length of Stay in days: 3
I certify the patient meets the requirements for IP care: Yes
PRN Pain Medication Management As Directed
May give lesser potent ordered pain med per pt: Yes
preference::
Protocol:: Medication orders for pain may be administered in a
manner that supports deferring to patient preference
when the pt is:
- Requesting an ordered lesser potent pain medication.
Least to most potent pain medications are defined
as: acetaminophen < NSAID < tramadol < opioids
(morphine, oxycodone, hydromorphone).
- Requesting a lesser dose of the same medication IF
ORDERED.
- Requesting a less intrusive route of administration
if both routes are prescribed by the provider (PO <
IV).
04/30/24 15:09
Urinalysis Reflex To Culture Urgent
Date Specimen was Collected: 04/30/24
Time Specimen was Collected: 15:07
Urine Microscopic Reflex Cult Urgent
Blood Culture Urgent
TERRELL Source: Blood/Venous
Specimen Description:
04/30/24 15:16
Code Status As Directed
Resuscitation Status: Full Code
04/30/24 16:57
Bisacodyl [Dulcolax] 10 mg RECTAL [id number] PRN
Docusate W/Senna [Senokot-S] 1 tablet PO BIDPRN PRN
Polyethylene Glycol Powder [Miralax] 17 grams PO DAILYPRN PRN
04/30/24 16:57
Activity As Directed
Activity Level: As Tolerated
Pneumatic Compression Sleeves As Directed
Type: Knee high
Vital Signs As Directed
Frequency: Per unit guidelines
DX Deep Vein Thrombosis Video Routine
04/30/24 17:00
Furosemide [Lasix] 20 mg PO BID@0800,1600
04/30/24 18:00
Atorvastatin [Lipitor] 40 mg PO QPM
Docusate Sodium [Colace] 200 mg PO QPM
04/30/24 20:00
Sodium Chloride 1 gram PO BID
Urea (Non-Form) [Ure-Na] 15 grams PO BID
05/01/24 06:00
Levothyroxine [Synthroid] 75 mcg PO DAILY@0600
05/01/24 08:00
Aspirin Low Dose EC [Aspir Low (Enteric Coated)] 81 mg PO DAILY
Cholecalciferol (Vitamin D3) [VITAMIN D3 (cholecalciferol)] 25 mcg PO DAILY
Cyanocobalamin [Vitamin B-12] 1,000 mcg PO DAILY
FOLic ACID [Folvite] 1 mg PO DAILY
Metoprolol Xl [Toprol Xl] 25 mg PO DAILY
Pantoprazole [Protonix] 40 mg PO DAILY
Prednisone [Deltasone] 30 mg PO DAILY
Abnormal Lab Results
04/30/24 04/30/24
13:14 15:09
WBC 1.0 L* 10^3/uL
(4.8-10.8)
RBC 2.43 L 10^6/uL
(4.70-6.10)
Hgb 7.8 L g/dL
(13.0-18.0)
Hct 22.7 L %
(39.0-52.0)
MCH 32.1 H pg
(27.0-31.0)
Abs Neuts (Manual) 0.4 L* 10^3/uL
(1.4-6.5)
Segmented Neutrophils 38 L %
(42-75)
Band Neutrophils 4 H %
(0-3)
Lymphocytes (Manual) 15 L %
(20-51)
Monocytes (Manual) 40 H %
(2-9)
Sodium 128 L mmol/L
(135-145)
Chloride 95 L mmol/L
(98-107)
BUN 38 H mg/dl
(9-20)
Glucose 133 H mg/dl
(70-99)
Calcium 8.2 L mg/dl
(8.4-10.2)
Total Bilirubin 2.4 H mg/dl
(0.2-1.3)
ALT 72 H U/L
(0-50)
Total Protein 4.8 L g/dl
(6.3-8.2)
Albumin 2.8 L g/dl
(3.5-5.0)
Urine Albumin (Reflex) 1+ A
(Neg - Trace)
Antibody Screen Positive A
(Negative)
04/30/24 13:14
04/30/24 13:14
Vital Signs
Initial and Last Documented VS:
Initial Vital Signs
BP
104/57
04/30/24 10:42
Last Documented Vital Signs
Temp Pulse Resp BP Pulse Ox
97.5 F 81 24 107/72 100
04/30/24 17:25 04/30/24 17:15 04/30/24 17:15 04/30/24 17:07 04/30/24 17:15
Jenniferlt;Laura Martin PA-C - Last Filed: 04/30/24 19:22>
MDM/Problems Addressed
Differential Diagnosis Includes:
Differentials include acute hemolytic anemia, acute adrenal insufficiency, chronic hyponatremia, viral syndrome,
MDM/Problems Addressed:
Generalized weakness:
78-year-old male with a past medical history of hyponatremia, chronic steroid use, warm AHA, bullous pemphigoid presenting emergency department today with concerns of generalized weakness and fatigue for the past few days. Patient reports that
normally he ambulates without difficulty but recently had to start using his walker again due to the weakness. Of note, patient had a fever at home yesterday. Patient denies chest pain, shortness of breath, abdominal pain, coughing, nausea,
vomiting, syncopal episodes. Patient states that he normally feels this way when he needs to be transfused. On physical exam, patient appears fatigued, pale and mildy tachypneic but otherwise unremarkable exam. His CMP demonstrates hyponatremia
(chronic) but no hyperkalemia, less likely to be acute adrenal insufficiency. Patient recently stopped his azathioprine medication on 04/25/24 due to severe fatigue, likely explaining today's leukopenia noted on blood work. Considering yesterday's
fever, blood cultures sent off. Hospitalist notified for admission for transfusion and further workup. Heme onc notified.
Chronic conditions affecting care:
warm AHA, chronic prednisone use
Acute Exacerbation and/or Progression of Chronic Illness:
warm aha
<Laura Martin PA-C - Last Filed: 04/30/24 19:22>
*Pulse Oximetry
Patient hypoxic: no
*Critical Care Note
Total Time (30-74mins, 75-104mins- exclusive of procedures): Not Applicable
ED Attending Note
<Laura Martin PA-C - Last Filed: 04/30/24 19:22>
-
Portions of this chart may have been created with voice recognition software.� Occasional wrong word or��sound alike� substitutions may have occurred due to the inherent limitations of voice recognition software.
<Geronimo Koroma DO - Last Filed: 04/30/24 12:51>
ED Attending Note
Patient seen and examined by attending physician: Yes
I performed the substantive portion of visit, reviewed & personally made and approve the management plan that is documented in note by myself or AYDEN.: Yes
ED Attending Note:
Patient is a 78-year-old male with a history of hemolytic anemia and being on chronic steroids who presents to the emergency department with increasing fatigue and weakness but past few days. Patient is not nauseous with vomiting. Patient had a
temperature of 102 yesterday. Patient denies nasal congestion, sore throat or cough. Patient denies any chest pain or shortness of breath. Patient denies any symptoms. Patient denies any diarrhea. On physical exam patient does appear
fatigued but alert and appropriate. Heart is regular with a systolic murmur. Abdomen soft nontender. Lungs are clear. Patient does have peripheral edema. 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
Patient has good peripheral pulses. This does not appear to be atherosclerotic as much is vasculitis. Given the fact that the patient's sodium is low, hypotensive and nontachycardic with a history of steroid use and now fever will give the patient
Solu-Cortef for possible adrenal insufficiency. In addition patient will be admitted and cultured. At this point waiting labs.
Discharge Plan
Departure
Patient Disposition: Admit
Admit to: Med/Surg
Presentation/result/management discussed w/ accepting MD/DO: Hospitalist
Patient with high blood pressure during this ER visit?: Yes
Condition: Fair
Discharge Problem:
Fatigue, Hemolytic anemia, Leukopenia
Interventions
Interventions:
*Risk Screen - Suicide Last Done: 04/30/24 18:45
*General Assessment Last Done: 04/30/24 10:43
*Neglect/Abuse Screening Last Done: 04/30/24 10:43
ED- Fall Risk Assessment Last Done: 04/30/24 10:43
*ED COVID-19 Vaccine History Last Done: 04/30/24 16:54
*Nursing Disposition Last Done: 04/30/24 16:54
Discharge Date and Time
Discharge Date/Time: 04/30/24 16:54
[2024-04-30] MEDS: SOLU-CORTEF 200 MG IV (13:18)
[2024-04-30] MEDS: NSS 1000 IV ×2 (13:19→18:09)
[2024-04-30 13:51] LABS: ALT (SGPT) 72 U/L (0-50); AST (SGOT) 44 U/L (17-59); Albumin 2.8 g/dl (3.5-5.0); Alkaline Phosphatase 94 U/L (38-126); Blood Urea Nitrogen 38 mg/dl (9-20); Calcium 8.2 mg/dl (8.4-10.2); Carbon Dioxide 24 mmol/L (22-30); Chloride 95 mmol/L (98-107); Estimated Creatinine Clearance 76 ml/min; Glucose 133 mg/dl (70-99); Potassium 3.6 mmol/L (3.5-5.1); Sodium 128 mmol/L (135-145); Total Bilirubin 2.4 mg/dl (0.2-1.3); Total Protein 4.8 g/dl (6.3-8.2); eGFR > 60.00
[2024-04-30 13:58] LABS: Hematocrit 22.7 % (39.0-52.0); Hemoglobin 7.8 g/dL (13.0-18.0); Mean Corp Hgb Conc. 34.4 g/dL (33.0-37.0); Mean Corpuscular Hgb 32.1 pg (27.0-31.0); Mean Corpuscular Volume 93.4 fL (80.0-94.0); Mean Platelet Volume 9.8 fL (7.4-10.4); Platelet Count 146 10^3/uL (130-400); Red Blood Cell Count 2.43 10^6/uL (4.70-6.10); Red Cell Dist. Width 14.5 % (11.5-14.5)
[2024-04-30 14:31] LABS: Band Neutrophils 4 % (0-3); Segmented Neutrophils 38 % (42-75)
[2024-04-30 14:32] LABS: Lymphocytes 15 % (20-51); Metamyelocytes 3 % (-); Monocytes 40 % (2-9); Normal RBC Morphology Yes; Platelets Checked Yes; Total Cells Counted 100
[2024-04-30 14:33] LABS: Absolute Neutrophils -Man Diff 0.4 10^3/uL (1.4-6.5)
[2024-04-30 15:29] LABS: Urine Albumin 1+ (Neg - Trace); Urine Bilirubin Negative (Negative); Urine Character Clear (Clear); Urine Color Yellow; Urine Glucose Negative (Negative); Urine Ketone Negative (Negative); Urine Leukocyte Negative (Negative); Urine Nitrite Negative (Negative); Urine Occult Blood Negative (Negative); Urine Specific Gravity 1.015 (<1.030); Urine Urobilinogen Negative (Neg - 1+)
[2024-04-30 15:40] LABS: Urine Red Blood Cell 0-2 /HPF (0-2); Urine White Cell 0-2 /HPF (0-5)
--- NOTE | 2024-04-30 17:26 | PTCARENOTE ---
Received patient from ED on stretcher. Transferred to bed with assistance x3. Patient AAO x3. Patient very weak and complains of fatigue. Oriented patient to room. at bedside. Vital signs stable, afebrile.
[2024-04-30 18:07] LABS: INR 1.37; PT 16.9 Sec (11.4-14.6)
[2024-04-30 18:08] LABS: APTT 27.8 Sec (23.4-35.0); Fibrinogen 598 MG/DL (199-459)
[2024-04-30] MEDS: LASIX 20 MG PO (18:09)
[2024-04-30] MEDS: COLACE 200 MG PO (18:09)
[2024-04-30] MEDS: LIPITOR 40 MG PO (18:09)
[2024-04-30 18:10] LABS: LDH 237 U/L (120-246)
[2024-04-30] MEDS: FLUSH (NSS) 1 FLUSH IV (18:10)
[2024-04-30 18:23] LABS: COVID-19 Antigen Negative (Negative)
[2024-04-30] MEDS: MAXIPIME 2000 MG IV (18:33)
[2024-04-30] MEDS: STERILE WATER FOR INJECTION 10 ML IV (18:34)
--- NOTE | 2024-04-30 19:22 | HPS.HSE ---
Addendum entered and electronically signed by Jhonathan Agee MD 05/01/24 14:12:
give 1u prbc for symptomatic anemia
check peripheral smear
check dic panel along with hemolysis labs
Original Note:
Family Physician
-
Family Physician: Santiago Garvin
Chief Complaint
-
Fatigue
History of Present Illness
A 78 year male with a past medical history of hemolytic anemia, hyponatremia, bullous pemphigoid, , HTN, HLD presents to the ED with complaints of fatigue since the past few days. Fatigue was gradual until the point where he couldn't even ambulate
properly without walker. states that he has had previous hospital stays where he was admitted for hemolytic anemia. Patient gets Hgb checked every week and last week it was 10.3 compared to 7.8 today. Around 2 weeks ago, he was put on
Aziathoprine 300 mg/day, but that him more tired and weaker, so they discontinued the drug. He had a bone marrow biopsy done in november. not a smoker, not a drinker, allergic tp bactrum.
Medical History
Past Medical History
Past Medical History: Reports HTN, Hypercholesterolemia, Hypothyroidism, Seizures and Other (Bullous Pemphigus, Hemolytic Anemia )
Past Surgical History: Reports Tonsilectomy and Other
Social History
Tobacco: Non-smoker
Alcohol: None
Drug: None
Personal:
Living: With Family
Employment: Retired
Family History
Family History: Not pertinent
Allergies / Home Medications
Allergies reflects when Allergies were last updated in [employer].
Home Medications with original date entered in [employer]
Allergy/Medication List:
Allergies
Allergy/AdvReac Type Severity Reaction Status Date / Time
Sulfa (Sulfonamide Allergy Rash Verified 04/30/24 17:09
Antibiotics)
amlodipine AdvReac caused his Verified 04/30/24 17:09
sodium
level to
be low
Home Medications
levothyroxine 75 mcg tablet 75 mcg PO DAILY Thyroid 12/03/18
folic acid 1 mg tablet 1 mg PO DAILY Supplement 09/26/23
polyethylene glycol 3350 17 gram oral powder packet (HealthyLax) 17 g PO DAILYPRN PRN constipation 10/17/23
sodium chloride 1,000 mg soluble tablet 1,000 mg PO BID Electrolyte Repletion 10/17/23
cholecalciferol (vitamin D3) 25 mcg (1,000 unit) tablet 25 mcg PO DAILY Supplement 10/30/23
aspirin 81 mg tablet,delayed release 81 mg PO DAILY Blood clot prevention/tx #30 tabs 11/03/23
atorvastatin 40 mg tablet 40 mg PO QPM High cholesterol #30 tabs 11/03/23
cyanocobalamin (vitamin B-12) 1,000 mcg tablet 1,000 mcg PO DAILY Supplement #30 tabs 11/03/23
pantoprazole 40 mg tablet,delayed release 40 mg PO DAILY Gastrointestinal issue #30 tabs 11/03/23
urea 15 gram oral powder packet 1 packet PO BID Electrolyte Repletion 01/01/24
furosemide 20 mg tablet 20 mg PO BID hyponatremia 01/21/24
metoprolol succinate 25 mg tablet,extended release 24 hr 25 mg PO DAILY Heart disease/condition 01/21/24
docusate sodium 100 mg capsule 200 mg PO QPM 04/30/24
prednisone 20 mg tablet 30 mg PO DAILY 04/30/24
Review of Systems
-
History Source: Patient and Family ()
A 12 point ROS was completed and negative except as noted: Yes
Skin: Reports Other (excessive sweating)
Physical Exam
Vital Signs
Vital Signs
Temp Pulse Resp BP Pulse Ox
97.5 F 81 24 107/72 100
04/30/24 17:25 04/30/24 17:15 04/30/24 17:15 04/30/24 17:07 04/30/24 17:15
Physical Exam
General: Well Developed, Well Nourished and No Apparent Distress
HEENT: NormoCephalic and Atraumatic
Respiratory: Clear
Cardiac: Regular Rhythm
GI: Soft, Non Tender and Normal Bowel Sounds
Musculoskeletal: Edema, Left Lower Extremity (pitting edema ) and Edema, Right Lower Extremity (pitting edema )
Skin: Warm
Neuro: Awake, Alert, Oriented and AO x 3
Psych: Calm
Laboratory Results
-
04/30/24 13:14
04/30/24 13:14
Laboratory Results
PT 16.9 Sec (11.4-14.6) H 04/30/24 17:43
INR 1.37 04/30/24 17:43
APTT 27.8 Sec (23.4-35.0) 04/30/24 17:43
Total Bilirubin 2.4 mg/dl (0.2-1.3) H 04/30/24 13:14
AST 44 U/L (17-59) 04/30/24 13:14
ALT 72 U/L (0-50) H 04/30/24 13:14
Alkaline Phosphatase 94 U/L (38-126) 04/30/24 13:14
Data Reviewed
-
Lab Data: Labs Reviewed by me and Discussed with Physician
Impression/Plan
-
IMPRESSION:
# hemolytic anemia
# Hyponatremia
#Chronic lower extremity edema
# Bullous pemphigoid
# Leukopenia
# Hypothyroidism
#Hyperlipidemia
PLAN:
# Warm autoimmune hemolytic anemia
- RBC: 2.43, Hgb: 7.8, Hct: 22.7, fibrinogen levels: 598
- Monitor his CBC closely
- COnsult with hemonc
-
# hyponatremia
- Na levels were 128
- Trend BMP
- Daily oral fluid restriction
- Continue oral sodium tabs + urea
- Consult with nephrology
# Neutropenia
- ANC= 0.4
- patient is afebrile
- Blood culture, urine analysis with reflex to culture, chest xray, peripheral smear ordered
- Start empiric antibiotics cefepime
#Hyperlipemia
- Continue Lipitor 40 mg
# Bullous pemphigoid
# Hypothyroidism
- Levothyroxine 75 mg continue
--- NOTE | 2024-04-30 19:24 | PTCARENOTE ---
Patient had recent amputation of right 2nd and 3rd toe. Dressing C/D/I. IV fluids infusing as ordered right midline.
[2024-04-30] MEDS: URE-NA 15 GRAMS PO (19:47)
[2024-04-30] MEDS: SODIUM CHLORIDE 1 GRAM PO (19:47)
--- NOTE | 2024-04-30 22:42 | PTCARENOTE ---
Pt received from previous shift in bed. AAOx3, pleasant. Telemetry = SR/1st degree AV block/PVC. Full physical assessment documented (refer to worklis) Local wound care provided to skin tear on RFA, and R 2nd and 3rd partially amputated toes.
Pt using urinal to void, verbalizes will ring for asssit when needing to get OOB. IVF infusing (NSS at 120 mL/hr) via R midline without complication, RH INT patent. Call santiago w/in reach, plan of care ongoing.
[2024-05-01] VITALS (12 sets, daily range): BP systolic 104–127; BP diastolic 62–76
[2024-05-01] MEDS: NSS 1000 IV ×3 (02:05→18:25)
[2024-05-01] MEDS: MAXIPIME 2000 MG IV ×2 (02:05→10:21)
[2024-05-01] MEDS: STERILE WATER FOR INJECTION 10 ML IV ×2 (02:06→10:21)
[2024-05-01] MEDS: TYLENOL 1000 MG PO (04:32)
[2024-05-01] MEDS: SYNTHROID 75 MCG PO (05:23)
--- NOTE | 2024-05-01 05:44 | PTCARENOTE ---
Rec'd pt from previous RN. Pt c/o level 8 pain in his groin, which he described as sharp, shooting, denies having this pain before. This RN reached out to JOAQUIN who placed one time tylenol order. Tylenol given per NOV. Pt reports relief and was
sleeping at reassessment. AM synthroid given per NOV.
[2024-05-01 06:08] LABS: ALT (SGPT) 58 U/L (0-50); AST (SGOT) 33 U/L (17-59); Albumin 2.4 g/dl (3.5-5.0); Alkaline Phosphatase 77 U/L (38-126); Blood Urea Nitrogen 40 mg/dl (9-20); Calcium 8.1 mg/dl (8.4-10.2); Carbon Dioxide 23 mmol/L (22-30); Chloride 106 mmol/L (98-107); Estimated Creatinine Clearance 101 ml/min; Glucose 111 mg/dl (70-99); Potassium 3.1 mmol/L (3.5-5.1); Sodium 135 mmol/L (135-145); Total Bilirubin 1.8 mg/dl (0.2-1.3); Total Protein 4.4 g/dl (6.3-8.2); eGFR > 60.00
[2024-05-01 06:18] LABS: Hematocrit 21.6 % (39.0-52.0); Hemoglobin 7.3 g/dL (13.0-18.0); Mean Corp Hgb Conc. 33.8 g/dL (33.0-37.0); Mean Corpuscular Volume 94.7 fL (80.0-94.0); Platelet Count 128 10^3/uL (130-400); Red Blood Cell Count 2.28 10^6/uL (4.70-6.10); White Blood Cell Count 1.3 10^3/uL (4.8-10.8)
[2024-05-01] MEDS: DELTASONE 30 MG PO (07:41)
[2024-05-01] MEDS: ASPIR LOW (ENTERIC COATED) 81 MG PO (07:41)
[2024-05-01] MEDS: PROTONIX 40 MG PO (07:41)
[2024-05-01] MEDS: SODIUM CHLORIDE 1 GRAM PO ×2 (07:41→19:46)
[2024-05-01] MEDS: URE-NA 15 GRAMS PO ×2 (07:41→19:46)
[2024-05-01] MEDS: TOPROL XL 25 MG PO (07:42)
[2024-05-01] MEDS: LASIX 20 MG PO ×2 (07:42→17:10)
[2024-05-01] MEDS: VITAMIN B-12 1000 MCG PO (07:42)
[2024-05-01] MEDS: VITAMIN D3 (cholecalciferol) 25 MCG PO (07:43)
[2024-05-01] MEDS: FOLVITE 1 MG PO (07:43)
[2024-05-01] MEDS: KCL 40 MEQ PO (07:44)
[2024-05-01] MEDS: TYLENOL 650 MG PO ×2 (07:45→13:30)
[2024-05-01 08:05] LABS: Band Neutrophils 3 % (0-3); Eosinophils 3 % (0-6); Lymphocytes 14 % (20-51); Metamyelocytes 1 % (-); Monocytes 11 % (2-9); Myelocytes 1 % (-); Segmented Neutrophils 67 % (42-75)
[2024-05-01 08:06] LABS: Anisocytosis 1+; Hypochromasia 1+; Normal RBC Morphology No; Platelets Checked Yes; Total Cells Counted 100
[2024-05-01 08:08] LABS: Absolute Neutrophils -Man Diff 0.9 10^3/uL (1.4-6.5)
--- NOTE | 2024-05-01 09:59 | CON.ONC ---
Impression
Impression
Autoimmune hemolytic anemia, treatment-refractory
Anemia, multifactorial
Rectal Abscess s/p I&D with colorectal surgery January 2024
History of rectal cancer arising in a polyp status post polypectomy in May 2019, cauterized polyp base uninvolved by tumor and no further treatment recommended
hyponatremia
Rash, suspect related to Bactrim
Weakness/fatigue
Pancytopenia.
Neutropenia, acute since 04/23/2024 labs that showed a normal ANC
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
Plan
Plan
Neutropenic precautions, monitor for infection, check ESR, CRP, b12, folate, SHANTE. Consider GCSF if concerned for hemodynamic instability d/t infection
ab US
Follow-up hemolysis panel, WILLEM
increase prednisone 40mg daily
PCP and GI ppx while on steroids
transfuse least incompatible blood
Will need to consider resumption of azothioprine 300 mg (3.5mg/kg) daily vs initiation of cytoxan in OP follow up with Dr. Paulino
Patient History
History of Present Illness
78 yo M with treatment-refractory hemolytic anemia presented with fatigue. He was having difficulty ambulating due to weakness. He had been hospitalized 12/31 - 01/18 and 01/31-01/20. Labs revealed WBC 1.3, hemoglobin 7.3, platelet count 128, ANC
900, total bilirubin 1.8, AST 33, ALT 58, alkaline phosphatase 77, LDH 237. Reticulocyte count, WILLEM and haptoglobin pending. Blood culture and chest x-ray pending. He was admitted and started on IV cefepime. He was seen in outpatient follow-up by
Dr. Rojas April 04 at which time his prednisone 40 mg was tapered to 30 mg daily and azothioprine 300 mg (3.5mg/kg) daily was initiated. Due to elevated LFTs and extreme fatigue azathioprine was held starting April 25 with plan to consider
resumption vs cytoxan at office follow up with Dr. Rojas. He continues on folic acid and vitamin B12 oral supplements daily. His CBC shows acute anemia with Hgb 10.1g/dL->7.3g/dL and acute neutropenic with ANC 5.2->900 since April 23, 2024
labs.
He had been on prednisone 60 mg daily for the hemolytic anemia for months with addition of Rituxan weekly x 4 from 11/07 - 11/28 with stabilization but not normalization of his hemoglobin. He has required multiple transfusions. He underwent bone marrow
biopsy January 2024 that showed mildly hypercellular bone marrow 50 to 60% overall cellularity with maturing trilineage hematopoiesis and a slight decrease M/E ratio. The aspirate smear showed a subset of megakaryocytes are small and hypolobulated less
than 5% of the cells; erythrocyte Citic lineage is left shifted with rare megaloblastic forms. The granulocytic lineage shows no significant pathologic abnormalities. This bone marrow biopsy was done while receiving G-CSF support. Flow cytometry
is mildly hemodiluted with no clonal population or increased blasts. Cytogenetics shows a normal male karyotype.
Clinically, denies fevers, sweats, chills, cough, abdominal pain, vomiting, diarrhea, or dysuria. Reports diarrhea onset since starting antibiotics yesterday. Continues with severe fatigue and dyspnea with exertion.
Afebrile, no hypoxia or hypotension
at bedside provided with updates per patient request
Past-Medical/Surgical History
Past Medical History
Hypothyroidism
Autoimmune Hemolytic Anemia
Bullous Pemphigoid
Chronic Left Pleural Effusion
Chronic Hypotension
Chronic Lower Extremity Edema
Left Occipital Stroke
SVT
Past Surgical History
Left Thoracentesis
Tonsillectomy
Social History
Tobacco: Non-smoker
Alcohol: None
Drug: None
Personal:
Living: With Family ()
Employment: Retired
Family History
Family History: Not pertinent
Patient Medication
�Medication �Instructions �Recorded �Confirmed �Last Taken �Type
levothyroxine 75 mcg tablet 75 mcg PO DAILY Thyroid 12/03/18 04/30/24 04/30/24 History
folic acid 1 mg tablet 1 mg PO DAILY Supplement 09/26/23 04/30/24 04/30/24 History
polyethylene glycol 3350 17 gram 17 g PO DAILYPRN PRN constipation 10/17/23 04/30/24 01/21/24 History
oral powder packet ([employer])
sodium chloride 1,000 mg soluble 1,000 mg PO BID Electrolyte 10/17/23 04/30/24 04/30/24 History
tablet Repletion
cholecalciferol (vitamin D3) 25 25 mcg PO DAILY Supplement 10/30/23 04/30/24 04/30/24 History
mcg (1,000 unit) tablet
aspirin 81 mg tablet,delayed 81 mg PO DAILY Blood clot 11/03/23 04/30/24 04/30/24 Rx
release prevention/tx #30 tabs
atorvastatin 40 mg tablet 40 mg PO QPM High cholesterol #30 11/03/23 04/30/24 04/29/24 Rx
tabs
cyanocobalamin (vitamin B-12) 1,000 mcg PO DAILY Supplement #30 11/03/23 04/30/24 04/30/24 Rx
1,000 mcg tablet tabs
pantoprazole 40 mg tablet,delayed 40 mg PO DAILY Gastrointestinal 11/03/23 04/30/24 04/30/24 Rx
release issue #30 tabs
urea 15 gram oral powder packet 1 packet PO BID Electrolyte 01/01/24 04/30/24 04/30/24 History
Repletion
furosemide 20 mg tablet 20 mg PO BID hyponatremia 01/21/24 04/30/24 04/29/24 History
metoprolol succinate 25 mg 25 mg PO DAILY Heart 01/21/24 04/30/24 04/30/24 History
tablet,extended release 24 hr disease/condition
docusate sodium 100 mg capsule 200 mg PO QPM Constipation 04/30/24 04/30/24 04/29/24 History
prednisone 20 mg tablet 30 mg PO DAILY Autoimmune Disorder 04/30/24 04/30/24 04/30/24 History
Active Medications
Generic Name Dose Route Start Last Admin
Trade Name Freq PRN Reason Stop Dose Admin
Acetaminophen 650 mg 05/01/24 04:20 05/01/24 07:45
Acetaminophen 325 Mg Tablet PO 05/29/24 04:19 650 mg
Q4HPRN PRN Administration
mild pain/RENEE/temp>100.5
Aspirin 81 mg 05/01/24 08:00 05/01/24 07:41
Aspirin 81 Mg (Enteric Coated) Tablet PO 05/29/24 07:59 81 mg
DAILY KAY Administration
Atorvastatin Calcium 40 mg 04/30/24 18:00 04/30/24 18:09
Atorvastatin (Lipitor) 40 Mg Tablet PO 05/28/24 17:59 40 mg
QPM KAY Administration
Bisacodyl 10 mg 04/30/24 16:57
Bisacodyl 10 Mg Rectal Suppository RECTAL 05/28/24 16:56
[id number] PRN
constipation
Cefepime HCl 2,000 mg 04/30/24 18:00 05/01/24 02:05
Cefepime Hcl 2,000 Mg/12.5 Ml Vial IV 2,000 mg
Q8H KYA Administration
Cholecalciferol 25 mcg 05/01/24 08:00 05/01/24 07:43
Cholecalciferol (Vitamin D3) 25 Mcg Tablet (1,000 Units) PO 05/29/24 07:59 25 mcg
DAILY KAY Administration
Cyanocobalamin 1,000 mcg 05/01/24 08:00 05/01/24 07:42
Cyanocobalamin 1,000 Mcg Tablet PO 05/29/24 07:59 1,000 mcg
DAILY KAY Administration
Docusate Sodium 200 mg 04/30/24 18:00 04/30/24 18:09
Docusate Sodium 100 Mg Capsule PO 05/28/24 17:59 200 mg
QPM KAY Administration
Folic Acid 1 mg 05/01/24 08:00 05/01/24 07:43
Folic Acid 1 Mg Tablet PO 05/29/24 07:59 1 mg
DAILY AKY Administration
Furosemide 20 mg 04/30/24 17:00 05/01/24 07:42
Furosemide 20 Mg Tablet PO 05/28/24 16:59 20 mg
BID@0800,1600 KAY Administration
Sodium Chloride 1,000 mls @ 120 mls/hr 04/30/24 17:15 05/01/24 09:52
Nss IV 1,000 mls
.Q8H20M KAY Administration
Levothyroxine Sodium 75 mcg 05/01/24 06:00 05/01/24 05:23
Levothyroxine 75 Mcg Tablet PO 05/29/24 05:59 75 mcg
DAILY@0600 KAY Administration
Metoprolol Succinate 25 mg 05/01/24 08:00 05/01/24 07:42
Metoprolol 25 Mg Extended Release Tablet PO 05/29/24 07:59 25 mg
DAILY KAY Administration
Pantoprazole Sodium 40 mg 05/01/24 08:00 05/01/24 07:41
Pantoprazole 40 Mg Delayed Release Tablet PO 05/29/24 07:59 40 mg
DAILY KAY Administration
Polyethylene Glycol 17 grams 04/30/24 16:57
Polyethylene Glycol Powder 17 Grams Packet PO 05/28/24 16:56
DAILYPRN PRN
constipation
Prednisone 30 mg 05/01/24 08:00 05/01/24 07:41
Prednisone 20 Mg Tablet PO 05/29/24 07:59 30 mg
DAILY KAY Administration
Senna/Docusate Sodium 1 tablet 04/30/24 16:57
Docusate W/Senna (Caroline-Colace) Tablet PO 05/28/24 16:56
BIDPRN PRN
constipation
Sodium Chloride 1 gram 04/30/24 20:00 05/01/24 07:41
Sodium Chloride 1 Gram Tablet PO 05/28/24 19:59 1 gram
BID KAY Administration
Sodium Chloride 0 flush 04/30/24 18:00 04/30/24 18:10
Sodium Chloride 0.9% (Flush) Syringe IV 05/28/24 17:59 1 flush
PER PROTOCOL KAY Administration
Sterile Water 10 ml 04/30/24 18:00 05/01/24 02:06
Sterile Water For Injection 10 Ml Vial IV 05/28/24 17:59 10 ml
Q8H KAY Administration
Urea 15 grams 04/30/24 20:00 05/01/24 07:41
Urea 15 Grams Powder Packet (Non-Form) PO 05/28/24 19:59 15 grams
BID KAY Administration
Review of Systems
-
Review of systems notable for HPI, otherwise negative
Physical Exam
-
General: Cooperative, did not appear acutely ill
Eyes: sclerae anicteric
ENT: No facial asymmetry, buccal mucosa moist
Neck: trachea midline
Lymph: No cervical, supraclavicular, axillary adenopathy
CV: normal S1, S2
Lungs: Good aeration bilaterally, no wheezing or rhonchi
Abdomen: Soft, nontender
Extrem: b/l LE edema
Neuro: Alert, oriented, speech clear
Skin: Normal turgor, no rash on exposed areas
Labs
Lab Results
WBC 1.3 10^3/uL (4.8-10.8) L* 05/01/24 05:29
RBC 2.28 10^6/uL (4.70-6.10) L 05/01/24 05:29
Hgb 7.3 g/dL (13.0-18.0) L 05/01/24 05:29
Hct 21.6 % (39.0-52.0) L 05/01/24 05:29
MCV 94.7 fL (80.0-94.0) H 05/01/24 05:29
MCH 32.0 pg (27.0-31.0) H 05/01/24 05:
MCHC 33.8 g/dL (33.0-37.0) 05/01/24 05:
RDW 14.0 % (11.5-14.5) 05/01/24 05:
Plt Count 128 10^3/uL (130-400) L 05/01/24 05:
MPV 10.0 fL (7.4-10.4) 05/01/24 05:
Creatinine 0.6 mg/dL (0.7-1.3) L 05/01/24 05:
Vital Signs
Vital Signs
Temp Pulse Resp BP Pulse Ox
97.4 F 90 20 121/70 99
05/01/24 07:42 05/01/24 07:42 05/01/24 06:00 05/01/24 07:42 05/01/24 06:00
--- NOTE | 2024-05-01 11:01 | PTCARENOTE ---
Pt is AAOx3 NSS at 120 running through r midline. pt on RA at 96%. Pt used BSC. Took pills whole. Pt has sharp shooting pain in his groin relieved by Tylenol . Pt for CXR . and Blood
--- NOTE | 2024-05-01 11:09 | PTCARENOTE ---
Pt had CXR . Spoke with blood bank re cmv irradiated blood, yevgeniy pt has never recieved accoding to [place]. Drs tasha LABOR DELIVERY RN from [facility] notified to contact blood bank. Pt at [facility]. Now for ABD US this afternoon Now NPO
--- NOTE | 2024-05-01 12:34 | CM ---
Patient with Dx hemolytic anemia, neutropenia. Transfusion ordered. Room air. Receiving IV Abx.
Met with patient and Melvina;
the patient resides with his in a 2 story house with 2 PRIMITIVO.
He is independent in ADLs and ambulation.
The patient is usually active and mows his own lawn with his tractor.
He has been fatigued recently and less active.
DME - RW, SPC, shower chair, oximeter, BP machine, commode
Prior [facility]
SNF - none
PCP - Santiago Garvin
Pharmacy - [facility]
Patient may benefit from PT/OT Evals---> message to resident Kayla Hameed.
CM continuing to follow.
Plan probable home.
[2024-05-01 13:30] LABS: Reticulocyte Count 5.1 % (0.4-2.8)
--- NOTE | 2024-05-01 14:00 | W.PN.HOSP.TC ---
Addendum entered and electronically signed by Jhonathan Agee MD 05/02/24 09:30:
Neutropenic without fever. ID evaluated recommend to discontinue IV antibiotics. Await for bone marrow recovery. Per hematology if hemodynamically stable with no indication for G-CSF if becomes unstable then provide. Will check ESR CRP B12
folate SHANTE.
Hemolytic anemia on chronic prednisone which hematology recommends to increase to 40 mg daily
Continued providing GI prophylaxis as on high-dose steroids
Provide 1 unit PRBC
Found to have a perirectal wound, Colorectal surgery consulted.
-If determined to be infectious by CRCgy then will need to resume atbs
Toe/Diabetic wound - foot for which wound care is following
Hyponartemia resolved
-On home salt tabs and urea packet. If continue upwards may be able to DC urea packet.
Original Note:
Today's Communication/Plan
-
hematology oncology consult
ID consult
Assessment / Plan
Assessment / Plan
A 78 year male with a past medical history of hemolytic anemia, hyponatremia, bullous pemphigoid, , HTN, HLD presents to the ED with complaints of fatigue since the past few days. Fatigue was gradual until the point where he couldn't even ambulate
properly without walker. states that he has had previous hospital stays where he was admitted for hemolytic anemia. Patient gets Hgb checked every week and last week it was 10.3 compared to 7.8 today. Around 2 weeks ago, he was put on
Aziathoprine 300 mg/day, but that him more tired and weaker, so they discontinued the drug. He had a bone marrow biopsy done in november. not a smoker, not a drinker, allergic to bactrum.
Labs revealed WBC 1.3, hemoglobin 7.3, platelet count 128, ANC 900, total bilirubin 1.8, AST 33, ALT 58, alkaline phosphatase 77, LDH 237
Oncology consult (05/01)
ab US
Follow-up hemolysis panel, WILLEM
increase prednisone 40mg daily
PCP and GI ppx while on steroids
transfuse least incompatible blood
Will need to consider resumption of azothioprine 300 mg (3.5mg/kg) daily vs initiation of cytoxan in OP follow up with Dr. Paulino
IMPRESSION:
# hemolytic anemia
# Hyponatremia
#Chronic lower extremity edema
# Bullous pemphigoid
# Leukopenia
# Hypothyroidism
#Hyperlipidemia
PLAN:
# Warm autoimmune hemolytic anemia
- RBC: 2.43, Hgb: 7.8, Hct: 22.7, fibrinogen levels: 598
- Monitor his CBC closely
- hematology [facility] saw in the AM, will f/u with them to assess plan going forward
- Talked to the blood bank and ordered blood products
- Consulted ID (05/01)- for ANC and extreme fatigue
# Colorectal abscess
- Consult with colorectal surgery (05/01)- R inner buttocks wound that may be draining fecal matter.
#Right toe amputation
- Ordered wound care (05/01)
# hyponatremia
- Na levels were 128
- Trend BMP
- Daily oral fluid restriction
- Continue oral sodium tabs + urea
- Consult with nephrology
# Neutropenia
- ANC= 0.4
- patient is afebrile
- Blood culture, urine analysis with reflex to culture, chest xray, peripheral smear ordered
- Start empiric antibiotics cefepime
#Hyperlipemia
- Continue Lipitor 40 mg
# Bullous pemphigoid
# Hypothyroidism
- Levothyroxine 75 mg continue
Anticipated Discharge: 24 - 48 hours
Subjective/Interval History
-
Date of Service: May 01, 2024
Pt was complaining of pain in his suprapubic region. intermittent. non radiating. moderate in intensity.relieved on taking Tylenol. not associated with suprapubic tenderness or burning micturition.
Objective Data
-
Labs:
Laboratory Results
05/01/24
05:29
WBC 1.3 L*
Hgb 7.3 L
Hct 21.6 L
Plt Count 128 L
Sodium 135
Potassium 3.1 L
Chloride 106
Carbon Dioxide 23
BUN 40 H
Creatinine 0.6 L
Glucose 111 H
Calcium 8.1 L
Total Bilirubin 1.8 H
AST 33
ALT 58 H
Alkaline Phosphatase 77
Vital Signs:
Vital Signs
Temp Pulse Resp BP Pulse Ox
97.6 F 90 20 121/70 98
05/01/24 11:10 05/01/24 07:42 05/01/24 06:00 05/01/24 07:42 05/01/24 08:00
I&O
04/30/24 05/01/24 05/02/24
06:59 06:59 06:59
Intake Total 1680 / 1680
Output Total 350 / 350 600 / 600
Balance 1330 / 1330 -600 / -600
Review of Systems
-
History Source: Patient
All other systems: Reviewed and negative
Constitutional: Reports Fatigue
Physical Exam
-
General: Well Developed, Well Nourished and No Apparent Distress
HEENT: Normocephalic and Atraumatic
Respiratory: Wheezes
Cardiac: S1/S2
GI: Soft, Nontender and Nondistended
Skin: Warm and Dry
Neuro: Awake, Alert and Oriented
Psych: Calm
Data Reviewed
-
Labs: Labs Reviewed by me and Discussed with Physician
--- NOTE | 2024-05-01 14:12 | WOUNDNOTE ---
R INNER BUTTOCKS (OLD SETH SITE? s/p I+D perirectal abscess 01/2024)
--- NOTE | 2024-05-01 14:15 | WOUNDNOTE ---
R 2nd, 3rd partial toe amp wounds (bones exposed)(:45; MR#[id number])
--- NOTE | 2024-05-01 14:33 | WOUNDNOTE ---
[facility] RN note: Patient admitted with fatigue, leucopenia. Patient lives with his who is a retired nurse.
See H&P for complete history.
PMH: anemia, bullous pemphigoid, HTN, I+D perirectal abscess by Dr. Patel 01/30/24.
Wound Location and type/assessment: Patient admitted with: R 2nd and 3rd toe partial amp wounds from gangrene done 2.[address] Rojas's office. Bone exposed, wounds pink and black necrotic. No surrounding erythema. Trace LE edema.
+Pedal pulses palpated. Heels blanchable red and intact. R inner buttocks with puncture wound stated is location of an old SETH drain. No surrounding induration. Scant fecal liquid noted from wound however not sure if from wound or from left over
loose bowel movement that got into wound.
Appetite: NPO for abdominal ultrasound. Patient hungry.
Pressure redistribution devices in place: Centrella Max air bed. Patient moves self in bed.
Plan: Toe amp dressings changed. Updated Dr. Rojas via tiger text including wound photo and noted small ss drainage. Dr. Rojas requested daily dressing changes with Betadine swab, adaptic, dry dressing. Heels off bed with air chair cushion.
Instructed patient pressure injury prevention measures including heel elevation in bed. [place] texted Kayden Shields R inner buttocks wound photo asking if anything other than keeping site clean and dry indicated.
Will confirm orders with hospitalist Dr. Ring or resident and discussed with ALHAJI Domingo.
Care plan to be updated and will follow as needed. Patient to follow up with Dr. Rojas and Dr. Patel.
--- NOTE | 2024-05-01 15:00 | WOUNDNOTE ---
[facility] RN note: KATEY Shields responded to tiger text stating colorectal should be consulted for R inner buttocks wound and they will evaluate tomorrow. Updated Dr. Raquel Agee and resident Yoseph Garza. Dr. Garza approved local toe amp wound care
and Dr. Garza stated she will put the colorectal consult in.
--- NOTE | 2024-05-01 16:52 | CON.ID ---
Addendum entered and electronically signed by Jhonathan Agee MD 05/02/24 09:25:
plese ignore my note.
Addendum entered and electronically signed by Jhonathan Agee MD 05/01/24 17:59:
Neutropenic without fever. ID evaluated recommend to discontinue IV antibiotics. Await for bone marrow recovery. Per hematology if hemodynamically stable with no indication for G-CSF if becomes unstable then provide. Will check ESR CRP B12
folate SHANTE.
Hemolytic anemia on chronic prednisone which hematology recommends to increase to 40 mg daily
Continued providing GI prophylaxis as on high-dose steroids
Provide 1 unit PRBC
Original Note:
Consultation
-
Date/Time Consultation Requested: May 01, 2024 1538
Date/Time Consultation Performed: May 01, 2024 1655
Requesting Provider: Dr. Yoseph Garza
Performing Provider: Dr. Daiana Sims
Reason for Consultation: Fatigue
Chief Complaint / Past History
Chief Complaint
Profound weakness
History of Present Illness
History obtained from patient and from his at bedside. 78-year-old male with refractory hemolytic anemia s/p rituxan x4 ), history of perirectal abscess status post I&D January 2024, presented to the ER on April 30 due to weakness and
fatigue to the point he was not able to ambulate. Patient has been on chronic prednisone 30 mg a day for hemolytic anemia. Patient states he was doing well more, mowing the lawn and almost back to normal. In the beginning of April he was started
on azathioprine for hemolytic anemia. Since then, he noticed fatigue and weakness.Last April 25, the azathioprine was discontinued due to elevated LFTs as well as fatigue. Patient continued to feel very weak. He was not able to get up
from the couch. Also complaining of subjective fever past few days. He was therefore brought to the ER yesterday. Patient noted to be neutropenic with ANC 400. Hemoglobin decreased from 10 to 7.8. Chest x-ray shows top normal vasculature. He
is afebrile. Was started on IV cefepime. Developed diarrhea overnight. He was seen by wound care today. The right inner buttock with an eschar contaminated with wound versus sinus tract. Per the buttock wound was from the previous drain.
The wound had been dry at home without erythema. Patient denies cough or shortness of breath. No headache. No dysuria. COVID-negative. No ill contacts. No tick exposure. At the end of January 2024, patient was discharged on atovaquone for PJP
prophylaxis while on prednisone of 20 mg or higher per day. Patient reports he ran out of atovaquone after 21 days and was not refilled. When he was placed on the azathioprine, the atovaquone was resumed. He has been off of the atovaquone since
discontinuation of azathioprine.
Past History
Additional Past Medical History:
Hypertension
Recurrent left pleural effusion
SVT
Hypothyroidism
Chronic SIADH
CVA
BPH
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
Bullous pemphigoid
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
Fatty liver
Diverticulosis
Chronic lower extremity edema
Vertebral fracture
Perirectal abscess s/p I+D
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
Allergy History:
Sulfa (Sulfonamide Antibiotics) Allergy (Verified 04/30/24 17:09)
Rash
amlodipine Adverse Reaction (Verified 04/30/24 17:09)
caused his sodium level to be low
Medications Reviewed: Yes
Current Antibiotics:
Cefepime d2
Social History
Tobacco: Non-Smoker
Alcohol: None
Drug: None
Personal:
Living: With Family
Family History
Family History: Not Pertinent
Review of Systems
Review of Systems
General: Fever and Change in Appetite; Negative Chills
HEENT: Negative Stiff Neck, Sinus Problems, Headache or Pharyngitis
Cardiovascular: Negative Chest Pain or Dyspnea
Respiratory: Negative Dyspnea or Cough
Gasteroenterology: Other (diarrhea); Negative Nausea or Vomiting
Genital / Urological: Negative Dysuria or Flank Pain
Endocrine: Weakness and Fatigue
Skin / Hair / Nails: Negative Rash
Neurological: Negative Headache or Dizziness
All systems: All other systems were reviewed and were negative
Vital Signs
Temp Pulse Resp BP Pulse Ox
97.8 F 84 23 127/76 98
05/01/24 15:05 05/01/24 14:00 05/01/24 14:00 05/01/24 14:00 05/01/24 14:00
Physical Exam
Physical Exam
Constitutional: No Acute Distress and Comfortable
Head: Other (No frontal or max or sinus tenderness)
Eyes: No Conjunctival Hemorrhage and Sclera Anicteric
Cardiovascular: Regular Rate and S1/S2
Pulmonary: Clear
Gastrointestinal: Soft, Non Tender, Non Distended and Normal Bowel Sounds
Genito-Urinary: Negative CVA Tenderness
Extremities: Negative Edema
Wound: Other (Reviewed today's wound photos: right 2nd, 3rd toe amp sites bone visible, dry, mild surrounding necrosis. Right inner buttock small wound dark red. )
Neurological: AO x 3
Lab / Diagnostic Study Results
05/01/24 05:29
05/01/24 05:29
Total Counted 100 05/01/24 05:29
Abs Neuts (Manual) 0.9 10^3/uL (1.4-6.5) L* 05/01/24 05:29
Segmented Neutrophils 67 % (42-75) 05/01/24 05:29
Band Neutrophils 3 % (0-3) 05/01/24 05:29
Lymphocytes (Manual) 14 % (20-51) L 05/01/24 05:29
Eosinophils (Manual) 3 % (0-6) 05/01/24 05:29
PT 16.9 Sec (11.4-14.6) H 04/30/24 17:43
INR 1.37 04/30/24 17:43
Microbiology Results
Micro:
04/30/24 15:09 Blood Culture - Preliminary
Blood/Venous No Growth in 24 hours- Final report to follow
04/30/24 20:02 Influenza Types A & B (ORLY) - Final
Nasal Swab Negative for Influenza A & B, NAAT
Negative results must be combined with clinical observations
and patient history.
Nucleic Acid Amplification test (NAAT)performed on the
[employer] platform.
05/01/24 CXR: Pulmonary vasculature is top normal. Please correlate with signs of congestive heart failure.
Assessment / Plan
# Neutropenia/pancytopenia
- Suspect drug-induced from recent azathioprine
-Afebrile. Blood cx neg. DC cefepime.
- Await BM recovery.
# Fatigue -suspect side effect from azathioprine.
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
# Need for abx prophylaxis
-Recent h/o suspected Pneumocystis pneumonitis treated (01/2024)
- Ideally, should be on Pneumocystis prophylaxis.
However, drug options are limited.
Hx of Bactrim allergy.
Avoid dapsone -> side effects include hemolytic anemia, methemoglobinemia
Hold atovaquone for now as drug may contribute to further myelosuppression.
[2024-05-01] MEDS: LIPITOR 40 MG PO (17:12)
[2024-05-01] MEDS: COLACE 200 MG PO (17:12)
--- NOTE | 2024-05-01 20:02 | PTCARENOTE ---
Received pt from [facility]. Pt is AAOx3. NSR w/ 1st degree and PVCs on the monitor. On RA O2 sat 98%, lungs diminished. Uses the urinal or BSCx1. Right forearm skin tears x2 changed. Right toes dressing c/d/i. Blood bank was called, states blood
is not ready. Pt is laying in bed with call henderson in reach.
[2024-05-02] VITALS (24 sets, daily range): BP systolic 100–154; BP diastolic 53–83; BMI 28.5
[2024-05-02] MEDS: TYLENOL 650 MG PO ×3 (01:14→22:31)
[2024-05-02] MEDS: SYNTHROID 75 MCG PO (04:50)
[2024-05-02 05:41] LABS: ALT (SGPT) 79 U/L (0-50); AST (SGOT) 49 U/L (17-59); Albumin 2.4 g/dl (3.5-5.0); Alkaline Phosphatase 91 U/L (38-126); Blood Urea Nitrogen 42 mg/dl (9-20); Carbon Dioxide 23 mmol/L (22-30); Chloride 109 mmol/L (98-107); Estimated Creatinine Clearance 101 ml/min; Glucose 92 mg/dl (70-99); Iron 107 ug/dl (49-181); Potassium 3.2 mmol/L (3.5-5.1); Sodium 140 mmol/L (135-145); Total Bilirubin 1.4 mg/dl (0.2-1.3); Total Protein 4.5 g/dl (6.3-8.2); eGFR > 60.00
[2024-05-02 05:50] LABS: Percent Saturation 79 % (20-50); Total Iron Binding Capacity 135 ug/dl (261-462)
[2024-05-02 05:51] LABS: Hematocrit 21.3 % (39.0-52.0); Hemoglobin 7.3 g/dL (13.0-18.0); Mean Corp Hgb Conc. 34.3 g/dL (33.0-37.0); Mean Corpuscular Hgb 31.5 pg (27.0-31.0); Mean Corpuscular Volume 91.8 fL (80.0-94.0); Mean Platelet Volume 10.6 fL (7.4-10.4); Platelet Count 166 10^3/uL (130-400); Red Blood Cell Count 2.32 10^6/uL (4.70-6.10); Red Cell Dist. Width 14.6 % (11.5-14.5)
[2024-05-02] MEDS: KCL 40 MEQ PO (06:02)
[2024-05-02 06:40] LABS: Erythrocyte Sed Rate 84 mm/hour (0-20)
[2024-05-02 06:51] LABS: Folate > 20.0 ng/ml (2.76-20); Vitamin B12 > 1000 pg/ml (239-931)
[2024-05-02 06:55] LABS: Absolute Neutrophils -Man Diff 1.3 10^3/uL (1.4-6.5); Anisocytosis 1+; Band Neutrophils 0 % (0-3); Hypochromasia 1+; Lymphocytes 17 % (20-51); Monocytes 16 % (2-9); Normal RBC Morphology No; Platelets Checked Yes; Segmented Neutrophils 67 % (42-75)
[2024-05-02 06:56] LABS: Total Cells Counted 100
[2024-05-02] MEDS: SODIUM CHLORIDE 1 GRAM PO ×2 (08:02→20:50)
[2024-05-02] MEDS: URE-NA 15 GRAMS PO ×2 (08:02→20:50)
[2024-05-02] MEDS: ASPIR LOW (ENTERIC COATED) 81 MG PO (08:03)
[2024-05-02] MEDS: DELTASONE 40 MG PO (08:03)
[2024-05-02] MEDS: PROTONIX 40 MG PO (08:03)
[2024-05-02] MEDS: LASIX 20 MG PO (08:03)
[2024-05-02] MEDS: VITAMIN B-12 1000 MCG PO (08:04)
[2024-05-02] MEDS: FOLVITE 1 MG PO (08:04)
[2024-05-02] MEDS: VITAMIN D3 (cholecalciferol) 25 MCG PO (08:04)
[2024-05-02] MEDS: TOPROL XL 25 MG PO (08:04)
--- NOTE | 2024-05-02 09:47 | W.PN.ID1 ---
Date of Service
Date of Service: May 02, 2024
Today's Communication
See below.
Assessment / Plan
# Neutropenia/pancytopenia
- Suspect drug-induced from recent azathioprine
-Afebrile. Blood cx neg.
- Await BM recovery.
# Right buttock necrotic wound
-hx of perirectal abscess s/p I+D (01/30/24)
- has chronic wound at previous drain site
- Appreciate colorectal. Will go to OR for wound exploration/debridement.
If evidence of infection, to send deep tissue for aerobic and anaerobic cultures.
- Will give pre-op dose of Vancomycin, cefepime, and metronidazole.
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
# Need for abx prophylaxis
-Recent h/o suspected Pneumocystis pneumonitis treated (01/2024)
- Ideally, should be on Pneumocystis prophylaxis.
However, drug options are limited.
Hx of Bactrim allergy.
Avoid dapsone -> side effects include hemolytic anemia, methemoglobinemia
Hold atovaquone for now as drug may contribute to further myelosuppression.
# Additional Past Medical History:
Hypertension
Recurrent left pleural effusion
SVT
Hypothyroidism
Chronic SIADH
CVA
BPH
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
Bullous pemphigoid
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
Fatty liver
Diverticulosis
Chronic lower extremity edema
Vertebral fracture
Perirectal abscess s/p I+D
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
Chief Complaint
-: Other (Neutropenic)
Subjective / Review of Systems
Feels well today. Denies complaints.
Diarrhea better.
Vital Signs / Physical Exam
Vital Signs
Vital Signs
Temp Pulse Resp BP Pulse Ox
97.5 F 76 18 121/67 99
05/02/24 07:30 05/02/24 08:03 05/02/24 08:00 05/02/24 08:03 05/02/24 09:43
Physical Exam
Constitutional: No Acute Distress and Comfortable
Cardiovascular: Regular Rate and S1/S2
Gastrointestinal: Soft, Non Tender and Non Distended
Extremities: Edema (trace ankle edema)
Neurological: AO x 3
Objective Data
Lab Data
Lab Results
05/02/24 04:49
05/02/24 04:49
ESR 84 mm/hour (0-20) H 05/02/24 04:49
PT 16.9 Sec (11.4-14.6) H 04/30/24 17:43
INR 1.37 04/30/24 17:43
APTT 27.8 Sec (23.4-35.0) 04/30/24 17:43
Estimated Creat Clear 101 ml/min 05/02/24 04:49
Total Bilirubin 1.4 mg/dl (0.2-1.3) H 05/02/24 04:49
AST 49 U/L (17-59) 05/02/24 04:49
ALT 79 U/L (0-50) H 05/02/24 04:49
Alkaline Phosphatase 91 U/L (38-126) 05/02/24 04:49
C-Reactive Protein 178.60 mg/L (0.0-10.00) H 05/02/24 04:49
Most recent labs reviewed.
Micro Results:
04/30/24 15:09 Blood Culture - Preliminary
Blood/Venous No Growth in 24 hours- Final report to follow
04/30/24 20:02 Influenza Types A & B (ORLY) - Final
Nasal Swab Negative for Influenza A & B, NAAT
Negative results must be combined with clinical observations
and patient history.
Nucleic Acid Amplification test (NAAT)performed on the
[employer] platform.
05/01/24 CXR: Pulmonary vasculature is top normal. Please correlate with signs of congestive heart failure.
Care Review
Plan reviewed with: Physician (Maura Magana, Nuria Garza)
--- NOTE | 2024-05-02 10:05 | PTCARENOTE ---
Pt AAOx 3. No s/s rsp distress no complaints offered Awaiting OR remains NPO
[2024-05-02] MEDS: MAXIPIME 2000 MG IV (10:24)
[2024-05-02] MEDS: STERILE WATER FOR INJECTION 10 ML IV (10:25)
[2024-05-02] MEDS: FLAGYL 500 MG 100 IV (10:30)
--- NOTE | 2024-05-02 10:48 | W.PN.ONC2 ---
Documented by User: JOAQUIN Bansal 05/02/24 13:09
Today's Communication / Plan
-
follow CBC, ANC improved to 1300
continue prednisone 40mg daily
continue GI, PCP ppx while on steroids
transfuse least incompatible blood for Hgb <7 or as needed for sxs anemia
Impression
Impression
Autoimmune hemolytic anemia, treatment-refractory
Anemia, multifactorial
Rectal Abscess s/p I&D with colorectal surgery January 2024
History of rectal cancer arising in a polyp status post polypectomy in May 2019, cauterized polyp base uninvolved by tumor and no further treatment recommended
hyponatremia
Rash, suspect related to Bactrim -resolved
Weakness/fatigue
thrombocytopenia resolved
Neutropenia, acute since 04/23/2024 labs that showed a normal ANC -improving
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
mild splenomegaly on US 13.1cm, hepatic steatosis
Plan
Plan
Neutropenic precautions, monitor for infection
elevated ESR, CRP
WILLEM positive c/w known AIHA
increase prednisone 40mg daily
PCP and GI ppx while on steroids
transfuse least incompatible blood
Will need to consider resumption of azathioprine 300 mg (3.5mg/kg) daily vs initiation of cytoxan in OP follow up with Dr. Paulino
Subjective/Objective
Chief Complaint
Hgb 7.3g/dL, stable. awaiting least incompatible blood for transfusion
ANC 1300, improved
thrombocytopenia resolved
Subjective
extreme fatigue
afebrile, no hypoxia or hypotension
Vital Signs:
Vital Signs
Temp Pulse Resp BP Pulse Ox
97.5 F 76 18 121/67 99
05/02/24 07:30 05/02/24 08:03 05/02/24 08:00 05/02/24 08:03 05/02/24 09:43
Lab Results:
Laboratory Data
WBC 2.0 10^3/uL (4.8-10.8) L* 05/02/24 04:49
Hgb 7.3 g/dL (13.0-18.0) L 05/02/24 04:49
Plt Count 166 10^3/uL (130-400) D 05/02/24 04:49
PT 16.9 Sec (11.4-14.6) H 04/30/24 17:43
INR 1.37 04/30/24 17:43
APTT 27.8 Sec (23.4-35.0) 04/30/24 17:43
eGFR > 60.00 05/02/24 04:49
05/02/24
04:49
ESR 84 H
Iron 107
TIBC 135 L
% Saturation 79 H
Ferritin 2700.0 H
Total Bilirubin 1.4 H
AST 49
ALT 79 H
Alkaline Phosphatase 91
C-Reactive Protein 178.60 H
Vitamin B12 > 1000 H
Folate > 20.0 H
Physical Exam
General: Cooperative, did not appear acutely ill
Eyes: sclerae anicteric
ENT: No facial asymmetry, buccal mucosa moist
Neck: trachea midline
Lymph: No cervical, supraclavicular, axillary adenopathy
CV: normal S1, S2
Lungs: Good aeration bilaterally, no wheezing or rhonchi
Abdomen: Soft, nontender
Extrem: b/l LE edema
Neuro: Alert, oriented, speech clear
Skin: Normal turgor, no rash on exposed areas
Review of Systems
Review of Systems
ROS notable for subjective, otherwise negative
Orders
Orders
Orders From Last 24 Hours
05/01/24 10:38
Precautions As Directed
05/01/24 10:40
Prednisone [Deltasone] 40 mg PO DAILY
05/01/24 10:44
US Abdomen Complete/Upper Routine
05/02/24 04:49
B12 [Vitamin B12] IN AM
CRP [C-Reactive Protein] IN AM
ESR [Erythrocyte Sed Rate] IN AM
Ferritin IN AM
Folate IN AM
Iron IN AM
TIBC [Total Iron Binding] IN AM

Documented by User: Vincenzo Ortega MD 05/02/24 13:40
Plan
Plan
Neutropenic precautions, monitor for infection
elevated ESR, CRP
WILLEM positive c/w known AIHA
increase prednisone 40mg daily
PCP and GI ppx while on steroids
transfuse least incompatible blood
Will need to consider resumption of azathioprine 300 mg (3.5mg/kg) daily vs initiation of cytoxan in OP follow up with Dr. Paulino
Hematology Addendum:
Patient seen and evaluated and agree w/ PL[employer] P[employer]ER note and plan as outlined
-transfuse least incompatible PRBCs today
-colorectal surgery considering drainage of perianall abscess
-ANC 1300 - on antibiotics per ID
-follow CBC
[2024-05-02] MEDS: VANCOCIN 300 MG IV (11:22)
[2024-05-02] MEDS: VANCOCIN 300 ML IV (11:22)
--- NOTE | 2024-05-02 12:22 | CON.CRS ---
Consultation
-
Date/Time Consultation Requested: 05/01/2024, 15:09
Date/Time Consultation Performed: 05/02/2024, 08:40
Requesting Provider: Yoseph Garza MD
Performing Provider: Geronimo Patel MD
Reason for Consultation: perianal wound
Medical History
-
Chief Complaint: lethargy
History of Present Illness:
78-year-old male, status post excisional drainage of perianal abscess 01/30/[address] Patel, presents to [facility] due to lethargy. The patient has a significant past medical history of hemolytic anemia and has been very fatigued for the
past few days. He states he is not sure if he has had any. No pain but he states he has had intermittent discomfort since the incision and drainage. In the ER his hemoglobin was 7.3 and he is currently awaiting a blood transfusion. bdc manager
looked at his prior incision and drainage site and asked for us to be consulted for further opinion.
Past Medical History
Past Medical History: Other (HTN, Hypercholesterolemia, Hypothyroidism, Seizures and Other (Bullous Pemphigus, Hemolytic Anemia ))
Past Surgical History: Tonsilectomy
Social History
Tobacco: Non-Smoker
Alcohol: None
Drug: None
Personal:
Family History
Family History: Reviewed & Not Pertinent
Allergies / Home Medications
Allergy/AdvReac Type Severity Reaction Status Date / Time
Sulfa (Sulfonamide Allergy Rash Verified 04/30/24 17:09
Antibiotics)
amlodipine AdvReac caused his Verified 04/30/24 17:09
sodium
level to
be low
�Medication �Instructions �Recorded �Confirmed �Type
levothyroxine 75 mcg tablet 75 mcg PO DAILY Thyroid 12/03/18 04/30/24 History
folic acid 1 mg tablet 1 mg PO DAILY Supplement 09/26/23 04/30/24 History
polyethylene glycol 3350 17 gram 17 g PO DAILYPRN PRN constipation 10/17/23 04/30/24 History
oral powder packet ([employer])
sodium chloride 1,000 mg soluble 1,000 mg PO BID Electrolyte 10/17/23 04/30/24 History
tablet Repletion
cholecalciferol (vitamin D3) 25 25 mcg PO DAILY Supplement 10/30/23 04/30/24 History
mcg (1,000 unit) tablet
aspirin 81 mg tablet,delayed 81 mg PO DAILY Blood clot 11/03/23 04/30/24 Rx
release prevention/tx #30 tabs
atorvastatin 40 mg tablet 40 mg PO QPM High cholesterol #30 11/03/23 04/30/24 Rx
tabs
cyanocobalamin (vitamin B-12) 1,000 mcg PO DAILY Supplement #30 11/03/23 04/30/24 Rx
1,000 mcg tablet tabs
pantoprazole 40 mg tablet,delayed 40 mg PO DAILY Gastrointestinal 11/03/23 04/30/24 Rx
release issue #30 tabs
urea 15 gram oral powder packet 1 packet PO BID Electrolyte 01/01/24 04/30/24 History
Repletion
furosemide 20 mg tablet 20 mg PO BID hyponatremia 01/21/24 04/30/24 History
metoprolol succinate 25 mg 25 mg PO DAILY Heart 01/21/24 04/30/24 History
tablet,extended release 24 hr disease/condition
docusate sodium 100 mg capsule 200 mg PO QPM Constipation 04/30/24 04/30/24 History
prednisone 20 mg tablet 30 mg PO DAILY Autoimmune Disorder 04/30/24 04/30/24 History
Review of Systems
-
History Source: Patient
All other systems: Negative unless noted
Constitutional: Fatigue
A 10 point review of systems was completed, and was negative except as per HPI.
Physical Exam
Vital Signs
Temp 97.5 F 05/02/24 11:02
Pulse 80 05/02/24 10:00
Resp Rate 18 05/02/24 10:00
Blood pressure 107/70 05/02/24 10:00
SaO2 100 05/02/24 10:00
05/01/24 05/02/24 05/03/24
06:59 06:59 06:59
Actual Weight 85.1 kg 87.4 kg
Body Mass Index (BMI) 28.5
Lab Results / Allergies
05/02/24 04:49
05/02/24 04:49
WBC 2.0 10^3/uL (4.8-10.8) L* 05/02/24 04:49
Hgb 7.3 g/dL (13.0-18.0) L 05/02/24 04:49
Hct 21.3 % (39.0-52.0) L 05/02/24 04:49
Plt Count 166 10^3/uL (130-400) D 05/02/24 04:49
Allergy/AdvReac Type Severity Reaction Status Date / Time
Sulfa (Sulfonamide Allergy Rash Verified 04/30/24 17:09
Antibiotics)
amlodipine AdvReac caused his Verified 04/30/24 17:09
sodium
level to
be low
Physical Exam
General: No Apparent Distress
GI: Soft, Non Tender and Non Distended
Rectal: Other (Left perianal wound that is open, stool present in wound, erythema surrounding wound)
Neuro: AO x 3
Data Reviewed
-
Labs: Labs Reviewed by me and Discussed with Patient
Old Records: Reviewed
Assessment / Plan
-
Assessment:
78-year-old male with previous incision and drainage about 2 months ago with hemolytic anemia presents to the ER with fatigue, found to have a perianal wound over prior incision and drainage site
Plan:
Given the severity of the wound, plan to take patient to the operating room today for a wound debridement. Discussed at length with patient who is in agreement. Will discuss with infectious disease as well as hematology given his concurrent
issues. N.p.o. Arrangements in place.
--- NOTE | 2024-05-02 12:41 | W.PN.HOSP.TC ---
Addendum entered and electronically signed by Jhonathan Agee MD 05/02/24 13:34:
Neutropenic without fever. ID evaluated recommend to discontinue IV antibiotics. Await for bone marrow recovery. Per hematology if hemodynamically stable with no indication for G-CSF if becomes unstable then provide. Will check ESR CRP B12
folate SHANTE.
Hemolytic anemia on chronic prednisone which hematology recommends to increase to 40 mg daily
Continued providing GI prophylaxis as on high-dose steroids
Provide 1 unit PRBC
Found to have a perirectal wound, Colorectal surgery consulted.
-If determined to be infectious by CRCgy then will need to resume atbs
Toe/Diabetic wound - foot for which wound care is following
Hyponartemia resolved
-On home salt tabs and urea packet. If continue upwards may be able to DC urea packet.
Original Note:
Today's Communication/Plan
-
F/U with ID on continued treatment options
Discontinue antibiotics
Await for bone marrow activity
Check on ESR, CRP, B12, Folate SHANTE
Continue GI prophylaxies on high dose steroids
Assessment / Plan
Assessment / Plan
A 78 year male with a past medical history of hemolytic anemia, hyponatremia, bullous pemphigoid, , HTN, HLD presents to the ED with complaints of fatigue since the past few days. Fatigue was gradual until the point where he couldn't even ambulate
properly without walker. states that he has had previous hospital stays where he was admitted for hemolytic anemia. Patient gets Hgb checked every week and last week it was 10.3 compared to 7.8 today. Around 2 weeks ago, he was put on
Aziathoprine 300 mg/day, but that him more tired and weaker, so they discontinued the drug. He had a bone marrow biopsy done in november. not a smoker, not a drinker, allergic to bactrum.
Oncology consult (05/01)
ab US
Follow-up hemolysis panel, WILLEM
increase prednisone 40mg daily
PCP and GI ppx while on steroids
transfuse least incompatible blood
Will need to consider resumption of azothioprine 300 mg (3.5mg/kg) daily vs initiation of cytoxan in OP follow up with Dr. Paulino
IMPRESSION:
# hemolytic anemia
# Hyponatremia
#Chronic lower extremity edema
# Bullous pemphigoid
# Leukopenia
# Hypothyroidism
#Hyperlipidemia
PLAN:
# Warm autoimmune hemolytic anemia
- RBC: 2.43, Hgb: 7.8, Hct: 22.7, fibrinogen levels: 598
- Monitor his CBC closely
- hematology onco saw in the AM, will f/u with them to assess plan going forward
- Talked to the blood bank and ordered blood products
- Consulted ID (05/01)- for ANC and extreme fatigue
#neutropenia:
As per ID:
- Suspect drug-induced from recent azathioprine
-Afebrile. Blood cx neg.
- Await BM recovery.
# Right buttock necrotic wound:
- Consult with colorectal surgery (05/01)- R inner buttocks wound that may be draining fecal matter.
-hx of perirectal abscess s/p I+D (01/30/24)
- has chronic wound at previous drain site
- Will go to OR for wound exploration/debridement.
If evidence of infection, aerobic and anaerobic cultures.
#Right toe amputation
- Ordered wound care (05/01)
# hyponatremia
- Na levels were 128
- Trend BMP
- Daily oral fluid restriction
- Continue oral sodium tabs + urea
- Consult with nephrology
# Neutropenia
- ANC= 0.4
- patient is afebrile
- Blood culture, urine analysis with reflex to culture, chest xray, peripheral smear ordered
- Start empiric antibiotics cefepime
#Hyperlipemia
- Continue Lipitor 40 mg
# Bullous pemphigoid
# Hypothyroidism
- Levothyroxine 75 mg continue
Anticipated Discharge: 24 - 48 hours
Subjective/Interval History
-
Date of Service: April
Pt has no acute complaints
Pt is POD 1 of drainage of post excisional drainage of abscess perianal
ID took a look at patient today (05/02):
Objective Data
-
Labs:
Laboratory Results
05/02/24
04:49
WBC 2.0 L*
Hgb 7.3 L
Hct 21.3 L
Plt Count 166 D
Sodium 140
Potassium 3.2 L
Chloride 109 H
Carbon Dioxide 23
BUN 42 H
Creatinine 0.6 L
Glucose 92
Calcium 8.0 L
Total Bilirubin 1.4 H
AST 49
ALT 79 H
Alkaline Phosphatase 91
Vital Signs:
Vital Signs
Temp Pulse Resp BP Pulse Ox
97.5 F 80 18 107/70 100
05/02/24 11:02 05/02/24 10:00 05/02/24 10:00 05/02/24 10:00 05/02/24 10:00
I&O
05/01/24 05/02/24 05/03/24
06:59 06:59 06:59
Intake Total 1680 / 1680 2570 / 2570
Output Total 350 / 350 1670 / 1670 200 / 200
Balance 1330 / 1330 900 / 900 -200 / -200
Review of Systems
-
History Source: Patient
All other systems: Reviewed and negative
Physical Exam
-
General: Well Developed, Well Nourished and No Apparent Distress
HEENT: Normocephalic and Atraumatic
Respiratory: Wheezes
GI: Soft, Nontender and Nondistended
Rectal: Other ((Left perianal wound that is open, stool present in wound, erythema surrounding wound))
Musculoskeletal: Edema, Right Lower Extrem, Edema, Left Lower Extrem (Edema, Left Lower Extremity (pitting edema ) and Edema, Right Lower Extremity (pitting edema ), Rt toe ) and Other (Rt toes 2nd and third digits amputated )
Skin: Warm and Dry
Neuro: Awake, Alert and Oriented
Psych: Calm
Data Reviewed
-
Labs: Labs Reviewed by me and Discussed with Physician
--- NOTE | 2024-05-02 17:17 | CM ---
Patient with Dx hemolytic anemia, neutropenia, perirectal wound. Plan OR today for debridement perirectal abscess. Transfusion. Seen by wound care nurse. Per nurse assessment; assist of 1heidi.
Patient may benefit from PT/OT Evals ---> message to Dr Agee & resident.
Plan follow up for wound care needs and mobility needs.
Plan probable home.
--- NOTE | 2024-05-02 17:34 | W.IMMPOSTOP ---
Addendum entered and electronically signed by Geronimo Patel MD 05/02/24 17:44:
Spoke to patient's on phone and updated her.
Original Note:
Surgical Immed Post Op Note
-
Primary Surgeon: Chad Patel MD
Assisting Surgeon: none
Pre-op Diagnosis: perirectal abscess/infection
Post-op Diagnosis: same plus anal fistula
Procedure Performed: 1) incision and drainage perirectal abscesses 2) drain placement X 2 (1/4 inch Niki and silastic vessel loop/seton)
Anesthesia Type: MAC plus local
Specimen / Cultures: abscess fluid
Estimated Blood Loss: 20 cc
Complications: no immediate
Operative Findings: horseshoe perirectal abscess/fistula with posterior midline internal opening; mainly R posterior anatomy
Left wound dressed with saline moistened 4 by 4s and covered with dry dressings and mesh panties.
Sending back to med surg.
[2024-05-02] MEDS: LIPITOR 40 MG PO (18:17)
[2024-05-02] MEDS: COLACE PO (18:17)
[2024-05-02] MEDS: ZOSYN 50 IV (18:18)
[2024-05-02] MEDS: LASIX PO (18:19)
--- NOTE | 2024-05-02 18:19 | PTCARENOTE ---
Pt return from PACu AAOx3 on room air no pain at this time [place] drain in plce some small amt of drainage on pad
--- NOTE | 2024-05-02 19:11 | PTCARENOTE ---
Tar completed from [place] slip from OR
--- NOTE | 2024-05-02 20:10 | PTCARENOTE ---
Pt received from previous RN. Pt AA0, engaging in oriented conversation. NSR on monitor. 98% on RA. using urinal, voiding moderate amounts of yellow urine. Neutropenic precautions maintained. Pt NPO. offered mouth swabs. Oral care preformed by PCT.
Pt denies further needs at this time call light in reach.
--- NOTE | 2024-05-02 21:45 | PTCARENOTE ---
second unit of ordered blood administration initiated using pink slip tar. This RN and a second RN verified blood product at bedside before transfusing. This RN remained at patients bedside for first 15 minutes of transfusion. v/s remain WNL.
[2024-05-02] MEDS: BENADRYL 25 MG IV (22:35)
--- NOTE | 2024-05-02 22:35 | PTCARENOTE ---
Pt remains afebrile. v/s wnl. Pt asymptomatic. This RN assessed slight flushing of the Pts cheeks. BURIAL AGENT notified. Order received for prophylactic Tylenol and Benadryl. Medication administered.
[2024-05-02 23:33] LABS: Haptoglobin 309 mg/dL (30-200)
[2024-05-03] VITALS (14 sets, daily range): BP systolic 116–149; BP diastolic 68–91
--- NOTE | 2024-05-03 00:55 | PTCARENOTE ---
blood transfusion completed at 0055. Documentation completed using pink slip tar. Please see pink slip tar for full documentation.
[2024-05-03] MEDS: ZOSYN 50 IV ×5 (01:04→23:33)
[2024-05-03 05:31] LABS: % Basophils 0.7 % (0-2); % Eosinophils 0.3 % (0-6); % Immature Granulocytes 2.6 % (0-0.5); % Lymphocytes 5.9 % (20.5-51.1); % Monocytes 13.8 % (1.7-9.3); % Neutrophils 76.7 % (42.2-75.2); Absolute Immature Granulocytes 0.1 10^3/uL (0-0.05); Absolute Lymphocytes 0.2 10^3/uL (1.2-3.4); Absolute Monocytes 0.4 10^3/uL (0.1-0.6); Absolute Neutrophils 2.3 10^3/uL (1.4-6.5); Hematocrit 29.5 % (39.0-52.0); Hemoglobin 9.9 g/dL (13.0-18.0); Mean Corp Hgb Conc. 33.6 g/dL (33.0-37.0); Mean Corpuscular Hgb 30.7 pg (27.0-31.0); Mean Corpuscular Volume 91.6 fL (80.0-94.0); Mean Platelet Volume 10.2 fL (7.4-10.4); Nucleated Red Blood Cells % 0 % (-); Platelet Count 226 10^3/uL (130-400); Red Blood Cell Count 3.22 10^6/uL (4.70-6.10); Red Cell Dist. Width 14.7 % (11.5-14.5)
[2024-05-03 05:46] LABS: ALT (SGPT) 62 U/L (0-50); AST (SGOT) 31 U/L (17-59); Albumin 2.7 g/dl (3.5-5.0); Alkaline Phosphatase 79 U/L (38-126); Blood Urea Nitrogen 39 mg/dl (9-20); Calcium 8.2 mg/dl (8.4-10.2); Carbon Dioxide 23 mmol/L (22-30); Chloride 108 mmol/L (98-107); Estimated Creatinine Clearance 87 ml/min; Glucose 107 mg/dl (70-99); Potassium 3.6 mmol/L (3.5-5.1); Sodium 141 mmol/L (135-145); Total Bilirubin 1.5 mg/dl (0.2-1.3); Total Protein 4.8 g/dl (6.3-8.2); eGFR > 60.00
[2024-05-03] MEDS: SYNTHROID 75 MCG PO (06:09)
[2024-05-03] MEDS: DELTASONE 40 MG PO (09:08)
[2024-05-03] MEDS: ASPIR LOW (ENTERIC COATED) 81 MG PO (09:08)
[2024-05-03] MEDS: FOLVITE 1 MG PO (09:09)
[2024-05-03] MEDS: LASIX 20 MG PO ×2 (09:09→16:50)
[2024-05-03] MEDS: VITAMIN D3 (cholecalciferol) 25 MCG PO (09:10)
[2024-05-03] MEDS: PROTONIX 40 MG PO (09:10)
[2024-05-03] MEDS: TOPROL XL 25 MG PO (09:10)
[2024-05-03] MEDS: VITAMIN B-12 1000 MCG PO (09:10)
[2024-05-03] MEDS: SODIUM CHLORIDE 1 GRAM PO ×2 (09:10→20:15)
[2024-05-03] MEDS: URE-NA 15 GRAMS PO ×2 (09:11→20:15)
--- NOTE | 2024-05-03 10:24 | W.PN.ID1 ---
Date of Service
Date of Service: May 03, 2024
Today's Communication
Continue Zosyn.
Assessment / Plan
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
- Appreciate colorectal. s/p I+D 05/02/24. OR gram stain: GNR, cx pending
-hx of perirectal abscess s/p I+D (01/30/24)
- Continue Zosyn (d2) pending cx's.
# s/p Neutropenia
- Suspect drug-induced from recent azathioprine
-Afebrile. Blood cx neg.
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
# Need for abx prophylaxis
-Recent h/o suspected Pneumocystis pneumonitis treated (01/2024)
- Ideally, should be on Pneumocystis prophylaxis.
However, drug options are limited.
Hx of Bactrim allergy.
Avoid dapsone -> side effects include hemolytic anemia, methemoglobinemia
Consider restart atovaquone when BM recovers.
# Additional Past Medical History:
Hypertension
Recurrent left pleural effusion
SVT
Hypothyroidism
Chronic SIADH
CVA
BPH
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
Bullous pemphigoid
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
Fatty liver
Diverticulosis
Chronic lower extremity edema
Vertebral fracture
Perirectal abscess s/p I+D
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
Chief Complaint
-: Other (Neutropenic)
Subjective / Review of Systems
Rectum is sore.
Vital Signs / Physical Exam
Vital Signs
Vital Signs
Temp Pulse Resp BP Pulse Ox
97.5 F 87 22 126/75 98
05/03/24 07:15 05/03/24 09:10 05/03/24 06:00 05/03/24 09:10 05/03/24 06:00
Physical Exam
Constitutional: No Acute Distress
Cardiovascular: Regular Rate and S1/S2
Gastrointestinal: Soft, Non Tender and Non Distended
Extremities: Edema (trace ankle BLE)
Neurological: AO x 3
Objective Data
Lab Data
Lab Results
05/03/24 04:57
05/03/24 04:57
ESR 84 mm/hour (0-20) H 05/02/24 04:49
PT 16.9 Sec (11.4-14.6) H 04/30/24 17:43
INR 1.37 04/30/24 17:43
APTT 27.8 Sec (23.4-35.0) 04/30/24 17:43
Estimated Creat Clear 87 ml/min 05/03/24 04:57
Total Bilirubin 1.5 mg/dl (0.2-1.3) H 05/03/24 04:57
AST 31 U/L (17-59) 05/03/24 04:57
ALT 62 U/L (0-50) H 05/03/24 04:57
Alkaline Phosphatase 79 U/L (38-126) 05/03/24 04:57
C-Reactive Protein 178.60 mg/L (0.0-10.00) H 05/02/24 04:49
Most recent labs reviewed.
Micro Results:
05/02/24 17:21 Wound Culture - Pending
Buttock Gram Stain - Preliminary
05/02/24 17:21 Anaerobic Culture - Pending
Buttock
04/30/24 15:09 Blood Culture - Preliminary
Blood/Venous No Growth in 48 hours- Final report to follow
04/30/24 20:02 Influenza Types A & B (ORLY) - Final
Nasal Swab Negative for Influenza A & B, NAAT
Negative results must be combined with clinical observations
and patient history.
Nucleic Acid Amplification test (NAAT)performed on the
[employer] platform.
05/01/24 CXR: Pulmonary vasculature is top normal. Please correlate with signs of congestive heart failure.
--- NOTE | 2024-05-03 10:40 | W.PN.ONC2 ---
Today's Communication / Plan
-
Decrease prednisone to 30 mg daily.
Monitor for improvement in hemoglobin with treatment of abscess.
Impression
Impression
Autoimmune hemolytic anemia, treatment-refractory
Anemia, multifactorial
Rectal Abscess s/p I&D with colorectal surgery January 2024
History of rectal cancer arising in a polyp status post polypectomy in May 2019, cauterized polyp base uninvolved by tumor and no further treatment recommended
Hyponatremia
Rash, suspect related to Bactrim -resolved
Weakness/fatigue
Thrombocytopenia resolved
Neutropenia, acute since 04/23/2024 labs that showed a normal ANC -improving
Gangrene involving his right 2nd and 3rd toes with ulceration of the 1st, 4th and 5th toes -known to podiatry
Mild splenomegaly on US 13.1cm, hepatic steatosis
Plan
Plan
Haptoglobin is elevated. With significant elevation in sed rate, suspect that infection/inflammation has been the primary form setter/driver of patient's anemia.
Reticulocyte count of 5% noted. Total bilirubin is 1.5, LDH 237, again arguing against significant hemolysis.
Await improvement in hemoglobin with treatment of infection.
Discontinue azathioprine for poor tolerance and lack of clinical benefit.
Suspect the steroids are contributing to weakness and infection. He has been on steroids for more than 6 months so taper needs to be gradual.
Decrease prednisone to 30 mg daily with plan for ongoing taper as outpatient.
Transfuse least incompatible blood as needed hemoglobin less than 8.
Differential with CBCs to monitor ANC.
Will continue to follow closely over the weekend.
Subjective/Objective
Chief Complaint
Multifactorial anemia including infection, plus minus low-grade hemolysis
Subjective
Patient underwent debridement yesterday of perirectal abscess. This infection may have been contributing to his anemia. When he was hospitalized 3 or 4 months ago, his anemia and performance status immediately improved after undergoing similar
procedure. Patient admits to weakness. He is overall feeling better today, denies significant pain.
Vital Signs:
Vital Signs
Temp Pulse Resp BP Pulse Ox
97.5 F 87 22 126/75 98
05/03/24 07:15 05/03/24 09:10 05/03/24 06:00 05/03/24 09:10 05/03/24 06:00
Lab Results:
Laboratory Data
WBC 3.0 10^3/uL (4.8-10.8) L 05/03/24 04:57
Hgb 9.9 g/dL (13.0-18.0) L D 05/03/24 04:57
Plt Count 226 10^3/uL (130-400) D 05/03/24 04:57
PT 16.9 Sec (11.4-14.6) H 04/30/24 17:43
INR 1.37 04/30/24 17:43
APTT 27.8 Sec (23.4-35.0) 04/30/24 17:43
eGFR > 60.00 05/03/24 04:57
Physical Exam
HEENT: Moist Mucous Membranes; No Jaundice
Cardiology: Normal Sinus Rhythm, S1 and S2
Pulmonary: Clear; No Wheezes
GI: Soft and Normal Bowel Sounds
Extremities: No C/C/E
Neuro: Non Focal
Orders
Orders
Orders From Last 24 Hours
05/03/24 10:40
Prednisone [Deltasone] 30 mg PO DAILY
[2024-05-03] MEDS: TYLENOL 650 MG PO ×2 (12:44→20:15)
[2024-05-03] MEDS: SENOKOT-S 1 TABLET PO (12:44)
--- NOTE | 2024-05-03 14:09 | W.PN.HOSP.TC ---
Today's Communication/Plan
-
see note
Assessment / Plan
Assessment / Plan
1. Kaylen-rectal abscess in immunocompromised patient
h/o kaylen-rectal abscess requiring drainage 01/30/24
-Earlier this year patient had history of an Bob rectal/anal abscess which required to be drained by colorectal surgery. Patient was apparently was healing appropriately from that.
-This admission on exam patient was noted to having left perianal wound with purulent drainage concerning of new abscess
-Patient was taken to the OR by corrective surgery and underwent I&D and drain placement for further abscess on 05/02/2024
-Intraoperative culture growing gram-negative rods. Culture for further identification and susceptibility review
-Patient is currently maintained on empiric Zosyn.
2. Autoimmune hemolytic anemia
-Patient of treatment refractory autoimmune hemolytic anemia
-Patient was on oral prednisone 20 mg daily and was given trial of azathioprine
-Unfortunately patient developed bone marrow suppression this has been discussed
-Patient required 2 active blood transfusion this admission, hemoglobin currently 9.1.
-Patient dose of prednisone increased to 40 mg daily earlier this admission, oncology decreased to 30 mg daily today.
3. Neutropenia
-Suspected azathioprine related bone marrow suppression
-Continue monitoring
4. 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
-Done in office setting by needle punch operator for dry gangrene
-Continue local wound care
5. Euvolemic hyponatremia
-Sodium function has normalized. 141 today.
6. Acute transaminitis
-minimal, trended down , monitor
-Currently on Lipitor, will continue
7. Bullous pemphigoid
-Patient gets significant flareup without steroids
-Follows up with dermatology.
8. Hypothyroidism
- Levothyroxine 75 mg continue
History of rectal cancer status post polypectomy in May 22
Peripheral artery disease
Essential hypertension
History of diverticulosis
DVT prophylaxis scd
DNR
Care plan discussed with oncology
Total time spent 55-minute
Anticipated Discharge: 24 - 48 hours
Subjective/Interval History
-
Date of Service: May 03, 2024
Reason comfortably in chair
have some rectal/kaylen-anal discomfort
afebrile in night
Objective Data
-
Labs:
Laboratory Results
05/03/24
04:57
WBC 3.0 L
Hgb 9.9 L D
Hct 29.5 L
Plt Count 226 D
Sodium 141
Potassium 3.6
Chloride 108 H
Carbon Dioxide 23
BUN 39 H
Creatinine 0.7
Glucose 107 H
Calcium 8.2 L
Total Bilirubin 1.5 H
AST 31
ALT 62 H
Alkaline Phosphatase 79
Vital Signs:
Vital Signs
Temp Pulse Resp BP Pulse Ox
97.0 F 88 20 128/85 100
05/03/24 11:10 05/03/24 10:00 05/03/24 10:00 05/03/24 10:00 05/03/24 10:45
I&O
05/02/24 05/03/24 05/04/24
06:59 06:59 06:59
Intake Total 2570 / 2570 950 / 950 370 / 370
Output Total 1670 / 1670 800 / 800 175 / 175
Balance 900 / 900 150 / 150 195 / 195
Review of Systems
-
Respiratory: Reports No Symptoms
Cardiac: Reports No Symptoms
Abdomen/GI: Reports No Symptoms
Physical Exam
-
General: Well Nourished and No Apparent Distress
HEENT: Negative Oxygen
Respiratory: Clear to Auscultation
Cardiac: Regular Rhythm and S1/S2; Negative Murmur
GI: Soft, Nontender and Nondistended
Rectal: Deferred by Provider
Skin: Warm and Dry
Neuro: Awake, Alert and Oriented
Psych: Calm
--- NOTE | 2024-05-03 14:43 | PTCARENOTE ---
Patient out of bed today in good spirits. Wound on rectal area soaked in sitz bath and fresh gauze applied. Small amount of bloody drainage noted. Patient complaining of mild rectal pain treated with Tylenol with relief. Drain intact at surgical
site. Patient compliant with plan of care. Good appetite.
--- NOTE | 2024-05-03 15:17 | W.PN.GS2 ---
Addendum entered and electronically signed by Leon Taylor MD 05/03/24 15:37:
I saw and examined the patient.
The Wheel Loader Operator's note was reviewed and I agree with the note.
Comment: Improving. Pain controlled. continues with drainage from the wound. wound appears healthy, no necrosis, no fol odor, no fluctuance, no purulence, rizwan and seton in place. Gauze removed. Plan for sitz baths TID, IV abx, outpt f/u with Dr
Regan. Will follow peripherally.
Original Note:
Today's Communication / Plan
-
Local wound care
Assessment / Plan
-
78 yo male with autoimmune hemolytic anemia with perirectal abscess/infection and anal fistula now POD #1 I&D with seton and rizwan drain placement
AFVSS
Labs improving
Packing removed at bedside
--Local wound care with pads for drainage and sitz baths
--ABX as per ID
--Wound cx pending
Subjective Data
-
Date of Service: May 03, 2024
Patient seen and examined at bedside with Dr. Taylor. Denies n/v. Tolerating diet. Pain to perianal area is minimal.
Objective Data
-
Intake and Output
05/02/24 05/03/24 05/04/24
06:59 06:59 06:59
Intake Total 2570 / 2570 950 / 950 370 / 370
Output Total 1670 / 1670 800 / 800 350 / 350
Balance 900 / 900 150 / 150 20 / 20
Intake:
Oral fluids 410 / 410 320 / 320
IV fluids (Total) 2160 / 2160 50 / 50
IV piggybacks 450 / 450
Blood products 250 / 250
Blood Product Amount Infused ( 250 / 250
mL)
Packed Rbc Leukoreduced Unit 250 / 250
[id number]
Output:
Urine, Voided 1670 / 1670 800 / 800 350 / 350
Other:
Number of approximated SMALL 2
amounts of urine
Number of approximated MODERATE 1
amounts of urine
Number of approximated LARGE 1 1
amounts of urine
How many times incontinent 2
MODERATE amount urine
Number of unmeasured liquid
stools
Rectum 3
Vital Signs
Temp Pulse Resp BP Pulse Ox
97.0 F 90 28 116/80 98
05/03/24 11:10 05/03/24 14:00 05/03/24 14:00 05/03/24 14:00 05/03/24 14:31
Lab Results
05/03/24 04:57
05/03/24 04:57
Calcium 8.2 mg/dl (8.4-10.2) L 05/03/24 04:57
Total Bilirubin 1.5 mg/dl (0.2-1.3) H 05/03/24 04:57
AST 31 U/L (17-59) 05/03/24 04:57
ALT 62 U/L (0-50) H 05/03/24 04:57
Alkaline Phosphatase 79 U/L (38-126) 05/03/24 04:57
Total Protein 4.8 g/dl (6.3-8.2) L 05/03/24 04:57
Albumin 2.7 g/dl (3.5-5.0) L 05/03/24 04:57
Physical Exam
-
NAD
ABD soft, nt
Perinal site with seton and rizwan drains in place, packing removed with SSF drainage noted
[2024-05-03] MEDS: LIPITOR 40 MG PO (16:50)
[2024-05-03] MEDS: COLACE 200 MG PO (16:50)
--- NOTE | 2024-05-03 17:22 | PTCARENOTE ---
Report given to Carlos MANE for transfer to 4th floor. Patient and family aware of plan of care. Patient is eating dinner at this time and IV antibiotics administering. Belongings packed up by . Patient denying pain at this time. Will be
transferred shortly.
[2024-05-03] MEDS: MIRALAX 17 GRAMS PO (20:15)
[2024-05-04] MEDS: ZOSYN 50 IV (05:52)
[2024-05-04] MEDS: SYNTHROID 75 MCG PO (05:52)
[2024-05-04 06:27] LABS: Hematocrit 27.8 % (39.0-52.0); Hemoglobin 9.5 g/dL (13.0-18.0); Mean Corp Hgb Conc. 34.2 g/dL (33.0-37.0); Mean Corpuscular Hgb 31.3 pg (27.0-31.0); Mean Corpuscular Volume 91.4 fL (80.0-94.0); Red Blood Cell Count 3.04 10^6/uL (4.70-6.10); Red Cell Dist. Width 14.7 % (11.5-14.5); White Blood Cell Count 2.2 10^3/uL (4.8-10.8)
[2024-05-04 06:28] LABS: Blood Urea Nitrogen 42 mg/dl (9-20); Carbon Dioxide 25 mmol/L (22-30); Chloride 107 mmol/L (98-107); Estimated Creatinine Clearance 101 ml/min; Glucose 89 mg/dl (70-99); Potassium 3.2 mmol/L (3.5-5.1); Sodium 139 mmol/L (135-145); eGFR > 60.00
[2024-05-04 07:24] VITALS: BP 136/75
[2024-05-04] MEDS: TYLENOL 650 MG PO ×2 (08:12→12:34)
[2024-05-04] MEDS: LASIX 20 MG PO ×2 (08:14→16:07)
[2024-05-04] MEDS: SODIUM CHLORIDE 1 GRAM PO ×2 (08:15→20:15)
[2024-05-04] MEDS: FOLVITE 1 MG PO (08:15)
[2024-05-04] MEDS: URE-NA 15 GRAMS PO ×2 (08:15→20:15)
[2024-05-04] MEDS: ASPIR LOW (ENTERIC COATED) 81 MG PO (08:15)
[2024-05-04] MEDS: PROTONIX 40 MG PO (08:15)
[2024-05-04] MEDS: TOPROL XL 25 MG PO (08:15)
[2024-05-04] MEDS: VITAMIN D3 (cholecalciferol) 25 MCG PO (08:15)
[2024-05-04] MEDS: DELTASONE 30 MG PO (08:15)
[2024-05-04] MEDS: VITAMIN B-12 1000 MCG PO (08:16)
--- NOTE | 2024-05-04 08:43 | W.PN.HOSP.TC ---
Today's Communication/Plan
-
f/u wound cs report
continue sitz bath
abx per ID
f/u CBC - hbg/ANC
Assessment / Plan
Assessment / Plan
1. Kaylen-rectal abscess in immunocompromised patient
h/o kaylen-rectal abscess requiring drainage 01/30/24
-Earlier this year patient had history of an Bob rectal/anal abscess which required to be drained by colorectal surgery. Patient was apparently was healing appropriately from that.
-This admission on exam patient was noted to having right perianal wound with purulent drainage concerning of new abscess
-Patient was taken to the OR by colorectal surgery and underwent I&D and drain placement for horseshoe shaped kaylen-rectal abscess on 05/02/2024
-Intraoperative culture growing gram-negative rods. Culture for further identification and susceptibility review
-Patient is currently maintained on empiric Zosyn.
-Sitz bath TID per surg recommendation
-On exam today patient have healthy granulation tissues on wound site. drain in place. no bleeding.
2. Autoimmune hemolytic anemia - treatment refractory
-Patient of treatment refractory autoimmune hemolytic anemia
-Patient was on oral prednisone 20 mg daily and was given trial of azathioprine
-Unfortunately patient developed bone marrow suppression and no clinical improvement, thus has been discontinued
-Patient required 2 active blood transfusion this admission, hemoglobin today 9.5. Patient to get least incompatible PRBC if hbg < 8
-Pre-admission was on prednisone 20mg/d > increased to 40mg/d at admission> dropped to 30mg/d on 05/03
-Hemato-oncology considering possible trial of rituxan in office.
3. Neutropenia
-Suspected azathioprine related bone marrow suppression
-Continue monitoring
4. 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
-Done in office setting by tiler's assistant for dry gangrene
-Continue local wound care
5. Euvolemic hyponatremia
-Sodium function has normalized. 141 today.
6. Acute transaminitis
-minimal, trended down , monitor
-Currently on Lipitor, will continue
7. Bullous pemphigoid
-Patient gets significant flareup without steroids
-Follows up with dermatology.
8. Hypothyroidism
- Levothyroxine 75 mg continue
History of rectal cancer status post polypectomy in May 22
Peripheral artery disease
Essential hypertension
History of diverticulosis
DVT prophylaxis scd
DNR
Remains complex care
Total time spent : 52 mins
Anticipated Discharge: 24 - 48 hours
Subjective/Interval History
-
Date of Service: May 04, 2024
complaining some soarness to right ischial abscess site
afebrile in night
no other reported problems
Objective Data
-
Labs:
Laboratory Results
05/04/24
05:40
WBC 2.2 L*
Hgb 9.5 L
Hct 27.8 L
Plt Count Pending
Sodium 139
Potassium 3.2 L
Chloride 107
Carbon Dioxide 25
BUN 42 H
Creatinine 0.6 L
Glucose 89
Calcium 8.0 L
Vital Signs:
Vital Signs
Temp Pulse Resp BP Pulse Ox
97.8 F 71 16 136/75 99
05/04/24 07:24 05/04/24 08:14 05/04/24 07:24 05/04/24 08:14 05/04/24 07:24
I&O
05/03/24 05/04/24 05/05/24
06:59 06:59 06:59
Intake Total 950 / 950 370 / 370
Output Total 800 / 800 350 / 350
Balance 150 / 150 20 / 20
Review of Systems
-
Respiratory: Reports No Symptoms
Cardiac: Reports No Symptoms
Abdomen/GI: Reports No Symptoms
Physical Exam
-
General: Well Nourished and No Apparent Distress
HEENT: Negative Oxygen
Rectal: Other (Right ischial drain in place, healthy granulation tissue at wound base)
Skin: Warm and Dry
Neuro: Awake, Alert and Oriented
Psych: Calm
[2024-05-04] MEDS: SENOKOT-S 1 TABLET PO (09:08)
[2024-05-04 09:18] LABS: Segmented Neutrophils 47 % (42-75)
[2024-05-04 09:19] LABS: Atypical Lymphocytes 3 %; Band Neutrophils 2 % (0-3); Eosinophils 4 % (0-6); Lymphocytes 29 % (20-51); Monocytes 13 % (2-9); Myelocytes 1 % (-)
[2024-05-04 09:23] LABS: Platelets Checked YES
[2024-05-04 09:24] LABS: Normal RBC Morphology No
[2024-05-04 09:25] LABS: Microcytosis FEW; Ovalocytes FEW; Total Cells Counted 100
[2024-05-04] MEDS: MIRALAX 17 GRAMS PO (09:26)
--- NOTE | 2024-05-04 10:27 | W.PN.ID1 ---
Date of Service
Date of Service: May 04, 2024
Today's Communication
See below.
Assessment / Plan
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
- Appreciate colorectal. s/p I+D 05/02/24. OR cx: Pseudomonas, E. coli
-hx of perirectal abscess s/p I+D (01/30/24)
-Transition Zosyn to cipro 500mg po bid and metronidazole 500mg po bid through 05/16/24.
- Check QTc
# s/p Neutropenia
- Suspect drug-induced from recent azathioprine
-Afebrile. Blood cx neg.
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
# Need for abx prophylaxis
-Recent h/o suspected Pneumocystis pneumonitis treated (01/2024)
- Ideally, should be on Pneumocystis prophylaxis.
However, drug options are limited.
Hx of Bactrim allergy.
Avoid dapsone -> side effects include hemolytic anemia, methemoglobinemia
Consider restart atovaquone when BM recovers.
# Additional Past Medical History:
Hypertension
Recurrent left pleural effusion
SVT
Hypothyroidism
Chronic SIADH
CVA
BPH
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
Bullous pemphigoid
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
Fatty liver
Diverticulosis
Chronic lower extremity edema
Vertebral fracture
Perirectal abscess s/p I+D
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
Chief Complaint
-: Other (Caroline-abscess)
Subjective / Review of Systems
Rectal wound sore.
Vital Signs / Physical Exam
Vital Signs
Vital Signs
Temp Pulse Resp BP Pulse Ox
97.8 F 71 16 136/75 99
05/04/24 07:24 05/04/24 08:14 05/04/24 07:24 05/04/24 08:14 05/04/24 07:24
Physical Exam
Constitutional: No Acute Distress
Cardiovascular: Regular Rate and S1/S2
Gastrointestinal: Soft and Non Distended
Extremities: Edema (1+)
Neurological: AO x 3
Objective Data
Lab Data
Lab Results
05/04/24 05:40
05/04/24 05:40
ESR 84 mm/hour (0-20) H 05/02/24 04:49
PT 16.9 Sec (11.4-14.6) H 04/30/24 17:43
INR 1.37 04/30/24 17:43
APTT 27.8 Sec (23.4-35.0) 04/30/24 17:43
Estimated Creat Clear 101 ml/min 05/04/24 05:40
Total Bilirubin 1.5 mg/dl (0.2-1.3) H 05/03/24 04:57
AST 31 U/L (17-59) 05/03/24 04:57
ALT 62 U/L (0-50) H 05/03/24 04:57
Alkaline Phosphatase 79 U/L (38-126) 05/03/24 04:57
C-Reactive Protein 178.60 mg/L (0.0-10.00) H 05/02/24 04:49
Most recent labs reviewed.
Micro Results:
05/02/24 17:21 Wound Culture - Preliminary
Buttock Escherichia coli
Pseudomonas aeruginosa
Diptheroids
Gram Stain - Preliminary
04/30/24 15:09 Blood Culture - Preliminary
Blood/Venous No Growth in 72 hours- Final report to follow
05/02/24 17:21 Anaerobic Culture - Preliminary
Buttock Culture pending. Anaerobic cultures are examined after 3
days incubation. Additional information to follow.
04/30/24 20:02 Influenza Types A & B (ORLY) - Final
Nasal Swab Negative for Influenza A & B, NAAT
Negative results must be combined with clinical observations
and patient history.
Nucleic Acid Amplification test (NAAT)performed on the
[employer] platform.
05/01/24 CXR: Pulmonary vasculature is top normal. Please correlate with signs of congestive heart failure.
[2024-05-04] MEDS: CIPRO 500 MG PO ×2 (11:58→20:15)
[2024-05-04 15:15] VITALS: BP 130/73
[2024-05-04] MEDS: LIPITOR 40 MG PO (17:24)
[2024-05-04] MEDS: COLACE PO (17:25)
[2024-05-04] MEDS: FLAGYL 500 MG PO (20:15)
--- NOTE | 2024-05-04 21:22 | W.PN.ONC2 ---
Today's Communication / Plan
-
Steroids decreased as anemia likely more due to inflammatory state than hemolysis.
Will continue to monitor closely as outpt.
Impression
Impression
Autoimmune hemolytic anemia, treatment-refractory
Anemia, multifactorial
Rectal Abscess s/p I&D with colorectal surgery January 2024
History of rectal cancer arising in a polyp status post polypectomy in May 2019, cauterized polyp base uninvolved by tumor and no further treatment recommended
Hyponatremia
Rash, suspect related to Bactrim -resolved
Weakness/fatigue
Thrombocytopenia resolved
Neutropenia, acute since 04/23/2024 labs that showed a normal ANC -improving
Gangrene involving his right 2nd and 3rd toes with ulceration of the 1st, 4th and 5th toes -known to podiatry
Mild splenomegaly on US 13.1cm, hepatic steatosis
Plan
Plan
Haptoglobin is elevated. With significant elevation in sed rate, suspect that infection/inflammation has been the primary star route mail driver of patient's anemia.
Reticulocyte count of 5% noted. Total bilirubin is 1.5, LDH 237, again arguing against significant hemolysis.
Await improvement in hemoglobin with treatment of infection.
Discontinue azathioprine for poor tolerance and lack of clinical benefit.
Suspect the steroids are contributing to weakness and infection. He has been on steroids for more than 6 months so taper needs to be gradual.
Decrease prednisone to 20 mg daily with plan for ongoing taper as outpatient. He has been on the 30 mg dose for nearly a month now.
Transfuse least incompatible blood as needed hemoglobin less than 8.
Differential with CBCs to monitor ANC.
Subjective/Objective
Chief Complaint
Multifactorial anemia (hx hemolysis, occult infection)
Subjective
Denies new complaint today. Has been transferred to floor from unit, transitioned from IV to PO abx
Vital Signs:
Vital Signs
Temp Pulse Resp BP Pulse Ox
97.4 F 73 16 130/73 96
05/04/24 15:15 05/04/24 15:15 05/04/24 15:15 05/04/24 15:15 05/04/24 15:15
Lab Results:
Laboratory Data
WBC 2.2 10^3/uL (4.8-10.8) L* 05/04/24 05:40
Hgb 9.5 g/dL (13.0-18.0) L 05/04/24 05:40
Plt Count 10^3/uL (130-400) 05/04/24 05:40
PT 16.9 Sec (11.4-14.6) H 04/30/24 17:43
INR 1.37 04/30/24 17:43
APTT 27.8 Sec (23.4-35.0) 04/30/24 17:43
eGFR > 60.00 05/04/24 05:40
Physical Exam
Awake, alert, non-toxic appearing
Review of Systems
Review of Systems
10 point ROS negative in detail except as per HPI
Orders
Orders
Orders From Last 24 Hours
05/04/24 08:00
Prednisone [Deltasone] 30 mg PO DAILY
[2024-05-04 23:17] VITALS: BP 139/80
[2024-05-05] MEDS: SYNTHROID 75 MCG PO (06:00)
[2024-05-05 07:35] VITALS: BP 145/88
[2024-05-05 08:47] LABS: % Basophils 1.2 % (0-2); % Eosinophils 9.2 % (0-6); % Immature Granulocytes 3.8 % (0-0.5); % Lymphocytes 17.5 % (20.5-51.1); % Monocytes 17.5 % (1.7-9.3); % Neutrophils 50.8 % (42.2-75.2); Absolute Eosinophils 0.3 10^3/uL (0-0.7); Absolute Immature Granulocytes 0.1 10^3/uL (0-0.05); Absolute Lymphocytes 0.6 10^3/uL (1.2-3.4); Absolute Monocytes 0.6 10^3/uL (0.1-0.6); Absolute Neutrophils 1.7 10^3/uL (1.4-6.5); Hemoglobin 12.4 g/dL (13.0-18.0); Mean Corp Hgb Conc. 34.4 g/dL (33.0-37.0); Mean Corpuscular Hgb 31.6 pg (27.0-31.0); Mean Corpuscular Volume 91.8 fL (80.0-94.0); Mean Platelet Volume 9.9 fL (7.4-10.4); Nucleated Red Blood Cells % 1.2 % (-); Platelet Count 299 10^3/uL (130-400); Red Blood Cell Count 3.92 10^6/uL (4.70-6.10); Red Cell Dist. Width 14.4 % (11.5-14.5); White Blood Cell Count 3.4 10^3/uL (4.8-10.8)
[2024-05-05 09:13] LABS: Blood Urea Nitrogen 35 mg/dl (9-20); Calcium 8.9 mg/dl (8.4-10.2); Carbon Dioxide 25 mmol/L (22-30); Chloride 103 mmol/L (98-107); Estimated Creatinine Clearance 101 ml/min; Glucose 90 mg/dl (70-99); Potassium 3.6 mmol/L (3.5-5.1); Sodium 137 mmol/L (135-145); eGFR > 60.00
[2024-05-05] MEDS: URE-NA 15 GRAMS PO (09:34)
[2024-05-05] MEDS: FOLVITE 1 MG PO (09:34)
[2024-05-05] MEDS: SODIUM CHLORIDE 1 GRAM PO (09:34)
[2024-05-05] MEDS: DELTASONE 30 MG PO (09:34)
[2024-05-05] MEDS: TOPROL XL 25 MG PO (09:34)
[2024-05-05] MEDS: TYLENOL 650 MG PO ×2 (09:35→14:42)
[2024-05-05] MEDS: VITAMIN D3 (cholecalciferol) 25 MCG PO (09:35)
[2024-05-05] MEDS: PROTONIX 40 MG PO (09:35)
[2024-05-05] MEDS: ASPIR LOW (ENTERIC COATED) 81 MG PO (09:35)
[2024-05-05] MEDS: FLAGYL 500 MG PO (09:35)
[2024-05-05] MEDS: VITAMIN B-12 1000 MCG PO (09:35)
[2024-05-05] MEDS: CIPRO 500 MG PO (09:35)
[2024-05-05] MEDS: VISBIOME 2 CAP PO (09:35)
[2024-05-05] MEDS: LASIX 20 MG PO (09:36)
--- NOTE | 2024-05-05 13:12 | W.PN.UPDATE ---
Addendum entered and electronically signed by Pedro Agee MD 05/08/24 16:22:
Add on to diagnosis list:
Sepsis due to kaylen-rectal abscess
Original Note:
Update Note
Progress Note Update
I saw and evaluated the patient. I reviewed the resident�s note and agree with findings and plan as documented in the resident�s note.
No complains overnight. Some pain at right ischial site.
Afebrile in night.
1. Kaylen-rectal abscess in immunocompromised patient
h/o kaylen-rectal abscess requiring drainage 01/30/24
-Earlier this year patient had history of an Bob rectal/anal abscess which required to be drained by colorectal surgery. Patient was apparently was healing appropriately from that.
-This admission on exam patient was noted to having right perianal wound with purulent drainage concerning of new abscess
-Patient was taken to the OR by colorectal surgery and underwent I&D and drain placement for horseshoe shaped kaylen-rectal abscess on 05/02/2024
-Intraoperative culture growing gram-negative rods. Culture for further identification and susceptibility review
-Patient is currently maintained on empiric Zosyn.
-Sitz bath TID per surg recommendation
-On exam today patient have healthy granulation tissues on wound site. drain in place. no bleeding.
2. Autoimmune hemolytic anemia - treatment refractory
-Patient of treatment refractory autoimmune hemolytic anemia
-Patient was on oral prednisone 20 mg daily and was given trial of azathioprine
-Unfortunately patient developed bone marrow suppression and no clinical improvement, thus has been discontinued
-Patient required 2 active blood transfusion this admission, hemoglobin today 9.5. Patient to get least incompatible PRBC if hbg < 8
-Pre-admission was on prednisone 20mg/d > increased to 40mg/d at admission> dropped to 30mg/d on 05/03
-Hemato-oncology considering possible trial of rituxan in office.
3. Neutropenia
-Suspected azathioprine related bone marrow suppression
-Continue monitoring
4. 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
-Done in office setting by intermodal customer service for dry gangrene
-Continue local wound care
5. Euvolemic hyponatremia
-Sodium function has normalized. 141 today.
6. Acute transaminitis
-minimal, trended down , monitor
-Currently on Lipitor, will continue
7. Bullous pemphigoid
-Patient gets significant flareup without steroids
-Follows up with dermatology.
8. Hypothyroidism
- Levothyroxine 75 mg continue
History of rectal cancer status post polypectomy in May 22
Peripheral artery disease
Essential hypertension
History of diverticulosis
DVT prophylaxis scd
DNR
More than 30 minutes spent in discharge including
Final examination of the patient
Summarizing hospital stay
Instructions for continuing care to all relevant caregivers
Preparation of discharge records, prescriptions, and referral forms
Total time spent (in minutes): 39 mins
--- NOTE | 2024-05-05 13:56 | CM ---
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
[2024-05-05 14:49] VITALS: BP 138/83
--- NOTE | 2024-05-08 09:27 | PN.CDI ---
CDI
- -
CDI:
Physician Documentation Request
Admit Date: 04/30/24 15:28
Dear Doctor Anuel,
Please review the following and provide your response in the progress notes.
Clinical Indicators:
- 05/04 PN 'Kaylen-rectal abscess in immunocompromised patient'
- On 04/30 admission: WBC 1.0, HR 90-100s
- 5L IVF given
- IV abx Cefepime, Vanco, Zosyn,
- Buttock wound culture with E coli, Pseudomonas aeruginosa
- Discharged on Ciprofloxicin, Metronidazole
Please clarify which of the following most accurately describes the status of the patient's infection:
Sepsis due to kaylen-rectal abscess
Localized Infection Only, Without Systemic Illness, kaylen-rectal abscess
Other
Use of terms such as suspected, likely, concern for, or probable (associated with a specific diagnosis that is being evaluated, monitored, or treated as if it exists) are acceptable and can be coded in the inpatient setting, when documented at the
time of discharge.
Thank you,
Belgica Fields RN
CDI Specialist
Please use your independent medical judgment in providing your response.
== END 2024-05-05 15:06 | disposition home or self-care (01) | DRG 854 ==
LOC: 4 WEST ACU 15:28
PROVIDERS: Nurse Practitioner Acute Care; Nurse Practitioner Family; Physician Assistant; Student in an Organized Health Care Education/Training Program; ADMITTING PHYSICIAN Hospitalist; ATTENDING PHYSICIAN Hospitalist; EMERGENCY PHYSICIAN Emergency Medicine; FAMILY PHYSICIAN Internal Medicine; OTHER PHYSICIAN Internal Medicine Hematology & Oncology; OTHER PHYSICIAN Internal Medicine Infectious Disease; OTHER PHYSICIAN Surgery
PROC: 30233N1 Transfusion of Nonautologous Red Blood Cells into Peripheral Vein, Percutaneous Approach (ICD-10-PCS; 2024-05-02)
PROC: 0D9P00Z Drainage of Rectum with Drainage Device, Open Approach (ICD-10-PCS; 2024-05-02)
DX: A41.9 Sepsis, unspecified organism (principal); D59.11 Warm autoimmune hemolytic anemia; D61.818 Other pancytopenia; D84.9 Immunodeficiency, unspecified; E22.2 Syndrome of inappropriate secretion of antidiuretic hormone; L12.0 Bullous pemphigoid; K61.31 Horseshoe abscess; K76.0 Fatty (change of) liver, not elsewhere classified; E03.9 Hypothyroidism, unspecified; I10 Essential (primary) hypertension; B96.20 Unspecified Escherichia coli [E. coli] as the cause of diseases classified elsewhere; B96.5 Pseudomonas (aeruginosa) (mallei) (pseudomallei) as the cause of diseases classified elsewhere; E78.00 Pure hypercholesterolemia, unspecified; K64.8 Other hemorrhoids; N40.0 Benign prostatic hyperplasia without lower urinary tract symptoms; K59.00 Constipation, unspecified; R06.09 Other forms of dyspnea; R26.2 Difficulty in walking, not elsewhere classified; R01.1 Cardiac murmur, unspecified; R60.0 Localized edema; Z89.421 Acquired absence of other right toe(s); Z79.82 Long term (current) use of aspirin; Z79.52 Long term (current) use of systemic steroids; Z79.890 Hormone replacement therapy; Z79.899 Other long term (current) drug therapy; Z86.73 Personal history of transient ischemic attack (TIA), and cerebral infarction without residual deficits; Z86.79 Personal history of other diseases of the circulatory system; Z87.19 Personal history of other diseases of the digestive system; Z85.048 Personal history of other malignant neoplasm of rectum, rectosigmoid junction, and anus; Z87.891 Personal history of nicotine dependence; Z88.2 Allergy status to sulfonamides; Z88.8 Allergy status to other drugs, medicaments and biological substances
CPT/HCPCS: 71046; 76700; 80048; 80053; 81003; 81015; 82607; 82728; 82746; 83010; 83540; 83550; 83615; 85025; 85045; 85384; 85610; 85652; 85730; 86140; 86850; 86870; 86900; 86901; 86920; 86922; 87040; 87070; 87075; 87077; 87186; 87205; 87502; 87811; 93005; 96361; 96374; 99284; P9016

== ENCOUNTER → 2024-05-08 10:36 | Outpatient (REF) | payer MEDICARE, BC, SELFPAY ==
[2024-05-08 12:28] LABS: Hematocrit 33.6 % (39.0-52.0); Hemoglobin 11.2 g/dL (13.0-18.0); Mean Corp Hgb Conc. 33.3 g/dL (33.0-37.0); Mean Corpuscular Hgb 30.9 pg (27.0-31.0); Mean Corpuscular Volume 92.8 fL (80.0-94.0); Platelet Count 424 10^3/uL (130-400); Red Blood Cell Count 3.62 10^6/uL (4.70-6.10); Red Cell Dist. Width 14.6 % (11.5-14.5); White Blood Cell Count 14.1 10^3/uL (4.8-10.8)
[2024-05-08 12:49] LABS: ALT (SGPT) 85 U/L (0-50); AST (SGOT) 63 U/L (17-59); Albumin 3.4 g/dl (3.5-5.0); Alkaline Phosphatase 133 U/L (38-126); Blood Urea Nitrogen 37 mg/dl (9-20); Direct Bilirubin 0.2 mg/dl (0.0-0.4); Total Protein 5.4 g/dl (6.3-8.2)
[2024-05-08 14:04] LABS: % Basophils 0.4 % (0-2); % Eosinophils 0.6 % (0-6); % Immature Granulocytes 6.6 % (0-0.5); % Lymphocytes 1.9 % (20.5-51.1); % Monocytes 2.1 % (1.7-9.3); % Neutrophils 88.4 % (42.2-75.2); Absolute Basophils 0.1 10^3/uL (0-0.2); Absolute Eosinophils 0.1 10^3/uL (0-0.7); Absolute Immature Granulocytes 0.9 10^3/uL (0-0.05); Absolute Lymphocytes 0.3 10^3/uL (1.2-3.4); Absolute Monocytes 0.3 10^3/uL (0.1-0.6); Absolute Neutrophils 12.5 10^3/uL (1.4-6.5); Nucleated Red Blood Cells % 0.2 % (-); Reticulocyte Count 4.7 % (0.4-2.8)
[2024-05-08 14:10] LABS: LDH 282 U/L (120-246)
[2024-05-11 02:53] LABS: Haptoglobin 181 mg/dL (30-200)
== END ==
LOC: REG 10:36
PROVIDERS: ATTENDING PHYSICIAN Internal Medicine Hematology & Oncology; FAMILY PHYSICIAN Internal Medicine; REFERRING PHYSICIAN Specialist
DX: D59.9 Acquired hemolytic anemia, unspecified (principal); L12.9 Pemphigoid, unspecified
CPT/HCPCS: 36415; 80076; 82565; 83010; 83615; 84520; 85025; 85045

== ENCOUNTER → 2024-05-15 10:45 | Outpatient (REF) | payer MEDICARE, BC, SELFPAY ==
[2024-05-15 12:10] LABS: Hematocrit 35.2 % (39.0-52.0); Hemoglobin 11.7 g/dL (13.0-18.0); Mean Corp Hgb Conc. 33.2 g/dL (33.0-37.0); Mean Corpuscular Hgb 30.9 pg (27.0-31.0); Mean Corpuscular Volume 92.9 fL (80.0-94.0); Mean Platelet Volume 9.7 fL (7.4-10.4); Platelet Count 431 10^3/uL (130-400); Red Blood Cell Count 3.79 10^6/uL (4.70-6.10); Red Cell Dist. Width 15.2 % (11.5-14.5)
[2024-05-15 12:51] LABS: ALT (SGPT) 69 U/L (0-50); AST (SGOT) 38 U/L (17-59); Albumin 4.2 g/dl (3.5-5.0); Alkaline Phosphatase 116 U/L (38-126); Blood Urea Nitrogen 41 mg/dl (9-20); Calcium 9.6 mg/dl (8.4-10.2); Carbon Dioxide 27 mmol/L (22-30); Chloride 97 mmol/L (98-107); Direct Bilirubin 0.2 mg/dl (0.0-0.4); Glucose 106 mg/dl (70-99); LDH 247 U/L (120-246); Potassium 4.9 mmol/L (3.5-5.1); Sodium 136 mmol/L (135-145); Total Bilirubin 1.2 mg/dl (0.2-1.3); Total Protein 6.2 g/dl (6.3-8.2); eGFR > 60.00
[2024-05-15 13:08] LABS: % Basophils 0.6 % (0-2); % Eosinophils 0.1 % (0-6); % Lymphocytes 3.7 % (20.5-51.1); % Monocytes 6.8 % (1.7-9.3); % Neutrophils 81.8 % (42.2-75.2); Absolute Immature Granulocytes 0.5 10^3/uL (0-0.05); Absolute Lymphocytes 0.3 10^3/uL (1.2-3.4); Absolute Monocytes 0.5 10^3/uL (0.1-0.6); Absolute Neutrophils 5.7 10^3/uL (1.4-6.5); Nucleated Red Blood Cells % 0 % (-); Reticulocyte Count 6.7 % (0.4-2.8)
[2024-05-17 05:00] LABS: Haptoglobin 147 mg/dL (30-200)
== END ==
LOC: REG 10:45
PROVIDERS: ATTENDING PHYSICIAN Internal Medicine Hematology & Oncology; FAMILY PHYSICIAN Internal Medicine; REFERRING PHYSICIAN Specialist
DX: D59.9 Acquired hemolytic anemia, unspecified (principal); L12.9 Pemphigoid, unspecified; E87.1 Hypo-osmolality and hyponatremia
CPT/HCPCS: 36415; 80053; 82248; 82565; 83010; 83615; 85025; 85045

== ENCOUNTER → 2024-05-22 10:16 | Outpatient (REF) | payer MEDICARE, BC, SELFPAY ==
[2024-05-22 11:33] LABS: ALT (SGPT) 43 U/L (0-50); AST (SGOT) 28 U/L (17-59); Albumin 4.1 g/dl (3.5-5.0); Alkaline Phosphatase 111 U/L (38-126); Blood Urea Nitrogen 41 mg/dl (9-20); Direct Bilirubin 0.3 mg/dl (0.0-0.4); LDH 245 U/L (120-246); Total Bilirubin 1.5 mg/dl (0.2-1.3)
[2024-05-22 11:50] LABS: % Basophils 0.8 % (0-2); % Eosinophils 0.3 % (0-6); % Immature Granulocytes 7.4 % (0-0.5); % Lymphocytes 3.3 % (20.5-51.1); % Monocytes 3.3 % (1.7-9.3); % Neutrophils 84.9 % (42.2-75.2); Absolute Basophils 0.1 10^3/uL (0-0.2); Absolute Immature Granulocytes 0.6 10^3/uL (0-0.05); Absolute Lymphocytes 0.3 10^3/uL (1.2-3.4); Absolute Monocytes 0.3 10^3/uL (0.1-0.6); Absolute Neutrophils 6.8 10^3/uL (1.4-6.5); Hematocrit 34.1 % (39.0-52.0); Hemoglobin 11.6 g/dL (13.0-18.0); Mean Corpuscular Hgb 32.7 pg (27.0-31.0); Mean Corpuscular Volume 96.1 fL (80.0-94.0); Mean Platelet Volume 11.2 fL (7.4-10.4); Nucleated Red Blood Cells % 0 % (-); Platelet Count 223 10^3/uL (130-400); Red Blood Cell Count 3.55 10^6/uL (4.70-6.10); Red Cell Dist. Width 14.8 % (11.5-14.5)
[2024-05-24 00:38] LABS: Haptoglobin 100 mg/dL (30-200)
== END ==
LOC: REG 10:16
PROVIDERS: ATTENDING PHYSICIAN Internal Medicine Hematology & Oncology; FAMILY PHYSICIAN Internal Medicine; REFERRING PHYSICIAN Specialist
DX: D59.9 Acquired hemolytic anemia, unspecified (principal); L12.9 Pemphigoid, unspecified
CPT/HCPCS: 36415; 80076; 82565; 83010; 83615; 84520; 85025; 85045

== ENCOUNTER → 2024-05-29 10:12 | Outpatient (REF) | payer MEDICARE, BC, SELFPAY ==
[2024-05-29 11:07] LABS: % Basophils 0.4 % (0-2); % Eosinophils 0.8 % (0-6); % Immature Granulocytes 1.4 % (0-0.5); % Lymphocytes 2.9 % (20.5-51.1); % Monocytes 3.5 % (1.7-9.3); Absolute Eosinophils 0.1 10^3/uL (0-0.7); Absolute Immature Granulocytes 0.1 10^3/uL (0-0.05); Absolute Lymphocytes 0.2 10^3/uL (1.2-3.4); Absolute Monocytes 0.3 10^3/uL (0.1-0.6); Absolute Neutrophils 6.9 10^3/uL (1.4-6.5); Hematocrit 33.5 % (39.0-52.0); Hemoglobin 10.9 g/dL (13.0-18.0); Mean Corp Hgb Conc. 32.5 g/dL (33.0-37.0); Mean Corpuscular Hgb 31.4 pg (27.0-31.0); Mean Corpuscular Volume 96.5 fL (80.0-94.0); Mean Platelet Volume 9.9 fL (7.4-10.4); Nucleated Red Blood Cells % 0 % (-); Platelet Count 262 10^3/uL (130-400); Red Blood Cell Count 3.47 10^6/uL (4.70-6.10); Red Cell Dist. Width 14.6 % (11.5-14.5); Reticulocyte Count 6.6 % (0.4-2.8); White Blood Cell Count 7.6 10^3/uL (4.8-10.8)
[2024-05-29 11:45] LABS: ALT (SGPT) 53 U/L (0-50); AST (SGOT) 32 U/L (17-59); Albumin 4.4 g/dl (3.5-5.0); Alkaline Phosphatase 118 U/L (38-126); Blood Urea Nitrogen 44 mg/dl (9-20); Direct Bilirubin 0.2 mg/dl (0.0-0.4); LDH 237 U/L (120-246); Total Bilirubin 1.4 mg/dl (0.2-1.3); Total Protein 6.2 g/dl (6.3-8.2)
[2024-05-30 22:09] LABS: Haptoglobin 104 mg/dL (30-200)
== END ==
LOC: REG 10:12
PROVIDERS: ATTENDING PHYSICIAN Internal Medicine Hematology & Oncology; FAMILY PHYSICIAN Internal Medicine
DX: D59.9 Acquired hemolytic anemia, unspecified (principal); L12.9 Pemphigoid, unspecified
CPT/HCPCS: 36415; 80076; 82565; 83010; 83615; 84520; 85025; 85045

== ENCOUNTER → 2024-06-05 10:13 | Outpatient (REF) | payer MEDICARE, BC, SELFPAY ==
[2024-06-05 12:14] LABS: % Basophils 0.4 % (0-2); % Eosinophils 0.2 % (0-6); % Immature Granulocytes 1.1 % (0-0.5); % Monocytes 4.7 % (1.7-9.3); % Neutrophils 89.6 % (42.2-75.2); Absolute Immature Granulocytes 0.1 10^3/uL (0-0.05); Absolute Lymphocytes 0.2 10^3/uL (1.2-3.4); Absolute Monocytes 0.3 10^3/uL (0.1-0.6); Hematocrit 33.3 % (39.0-52.0); Hemoglobin 10.8 g/dL (13.0-18.0); Mean Corp Hgb Conc. 32.4 g/dL (33.0-37.0); Mean Corpuscular Hgb 31.3 pg (27.0-31.0); Mean Corpuscular Volume 96.5 fL (80.0-94.0); Mean Platelet Volume 10.1 fL (7.4-10.4); Nucleated Red Blood Cells % 0 % (-); Platelet Count 314 10^3/uL (130-400); Red Blood Cell Count 3.45 10^6/uL (4.70-6.10); Red Cell Dist. Width 14.2 % (11.5-14.5); Reticulocyte Count 6.4 % (0.4-2.8); White Blood Cell Count 5.6 10^3/uL (4.8-10.8)
[2024-06-05 12:44] LABS: ALT (SGPT) 37 U/L (0-50); AST (SGOT) 27 U/L (17-59); Albumin 4.2 g/dl (3.5-5.0); Alkaline Phosphatase 102 U/L (38-126); Blood Urea Nitrogen 42 mg/dl (9-20); Direct Bilirubin 0.2 mg/dl (0.0-0.4); LDH 224 U/L (120-246); Total Bilirubin 1.2 mg/dl (0.2-1.3); Total Protein 6.1 g/dl (6.3-8.2)
[2024-06-07 23:03] LABS: Haptoglobin 93 mg/dL (30-200)
== END ==
LOC: REG 10:13
PROVIDERS: ATTENDING PHYSICIAN Internal Medicine Hematology & Oncology; FAMILY PHYSICIAN Internal Medicine; REFERRING PHYSICIAN Podiatrist Foot & Ankle Surgery
DX: D59.9 Acquired hemolytic anemia, unspecified (principal); L12.9 Pemphigoid, unspecified
CPT/HCPCS: 36415; 80076; 82565; 83010; 83615; 84520; 85025; 85045

== ENCOUNTER → 2024-06-12 10:23 | Outpatient (REF) | payer MEDICARE, BC, SELFPAY ==
[2024-06-12 11:13] LABS: % Basophils 0.3 % (0-2); % Eosinophils 0.1 % (0-6); % Immature Granulocytes 1.4 % (0-0.5); % Lymphocytes 3.2 % (20.5-51.1); % Monocytes 3.7 % (1.7-9.3); % Neutrophils 91.3 % (42.2-75.2); Absolute Immature Granulocytes 0.1 10^3/uL (0-0.05); Absolute Lymphocytes 0.2 10^3/uL (1.2-3.4); Absolute Monocytes 0.3 10^3/uL (0.1-0.6); Absolute Neutrophils 6.6 10^3/uL (1.4-6.5); Hematocrit 34.3 % (39.0-52.0); Hemoglobin 11.5 g/dL (13.0-18.0); Mean Corp Hgb Conc. 33.5 g/dL (33.0-37.0); Mean Corpuscular Hgb 32.9 pg (27.0-31.0); Mean Platelet Volume 9.5 fL (7.4-10.4); Nucleated Red Blood Cells % 0 % (-); Platelet Count 302 10^3/uL (130-400); Red Cell Dist. Width 13.6 % (11.5-14.5); White Blood Cell Count 7.2 10^3/uL (4.8-10.8)
[2024-06-12 11:44] LABS: ALT (SGPT) 31 U/L (0-50); AST (SGOT) 22 U/L (17-59); Albumin 4.4 g/dl (3.5-5.0); Alkaline Phosphatase 90 U/L (38-126); Blood Urea Nitrogen 38 mg/dl (9-20); Calcium 9.4 mg/dl (8.4-10.2); Carbon Dioxide 24 mmol/L (22-30); Chloride 103 mmol/L (98-107); Glucose 118 mg/dl (70-99); Potassium 4.7 mmol/L (3.5-5.1); Sodium 140 mmol/L (135-145); Total Bilirubin 1.2 mg/dl (0.2-1.3); Total Protein 6.4 g/dl (6.3-8.2); eGFR > 60.00
== END ==
LOC: REG 10:23
PROVIDERS: ATTENDING PHYSICIAN Internal Medicine Hematology & Oncology; FAMILY PHYSICIAN Internal Medicine; OTHER PHYSICIAN Podiatrist Foot & Ankle Surgery; OTHER PHYSICIAN Surgery; REFERRING PHYSICIAN Specialist
DX: D59.9 Acquired hemolytic anemia, unspecified (principal); L12.9 Pemphigoid, unspecified; E87.1 Hypo-osmolality and hyponatremia
CPT/HCPCS: 36415; 80053; 85025

== ENCOUNTER → 2024-06-19 10:16 | Outpatient (REF) | payer MEDICARE, BC, SELFPAY ==
[2024-06-19 11:54] LABS: % Basophils 0.3 % (0-2); % Eosinophils 0.3 % (0-6); % Lymphocytes 2.1 % (20.5-51.1); % Monocytes 5.6 % (1.7-9.3); % Neutrophils 90.7 % (42.2-75.2); Absolute Immature Granulocytes 0.1 10^3/uL (0-0.05); Absolute Lymphocytes 0.2 10^3/uL (1.2-3.4); Absolute Monocytes 0.6 10^3/uL (0.1-0.6); Absolute Neutrophils 9.1 10^3/uL (1.4-6.5); Hematocrit 33.2 % (39.0-52.0); Hemoglobin 11.2 g/dL (13.0-18.0); Mean Corp Hgb Conc. 33.7 g/dL (33.0-37.0); Mean Corpuscular Hgb 31.9 pg (27.0-31.0); Mean Corpuscular Volume 94.6 fL (80.0-94.0); Nucleated Red Blood Cells % 0 % (-); Red Blood Cell Count 3.51 10^6/uL (4.70-6.10); Red Cell Dist. Width 13.2 % (11.5-14.5)
[2024-06-19 12:04] LABS: ALT (SGPT) 22 U/L (0-50); AST (SGOT) 23 U/L (17-59); Albumin 4.2 g/dl (3.5-5.0); Alkaline Phosphatase 103 U/L (38-126); Blood Urea Nitrogen 39 mg/dl (9-20); Direct Bilirubin 0.2 mg/dl (0.0-0.4); LDH 235 U/L (120-246); Total Bilirubin 1.1 mg/dl (0.2-1.3); Total Protein 6.2 g/dl (6.3-8.2)
[2024-06-19 12:54] LABS: Platelet Count 251 10^3/uL (130-400)
[2024-06-19 12:55] LABS: Mean Platelet Volume 10.8 fL (7.4-10.4)
[2024-06-21 02:35] LABS: Haptoglobin 183 mg/dL (30-200)
== END ==
LOC: REG 10:16
PROVIDERS: ATTENDING PHYSICIAN Internal Medicine Hematology & Oncology; FAMILY PHYSICIAN Internal Medicine
DX: D59.9 Acquired hemolytic anemia, unspecified (principal); L12.9 Pemphigoid, unspecified
CPT/HCPCS: 36415; 80076; 82565; 83010; 83615; 84520; 85025; 85045

== ENCOUNTER → 2024-06-26 10:38 | Outpatient (REF) | payer MEDICARE, BC, SELFPAY ==
[2024-06-26 11:56] LABS: % Basophils 0.5 % (0-2); % Eosinophils 0.2 % (0-6); % Immature Granulocytes 1.9 % (0-0.5); % Monocytes 5.4 % (1.7-9.3); Absolute Immature Granulocytes 0.2 10^3/uL (0-0.05); Absolute Lymphocytes 0.4 10^3/uL (1.2-3.4); Absolute Monocytes 0.5 10^3/uL (0.1-0.6); Absolute Neutrophils 7.8 10^3/uL (1.4-6.5); Hematocrit 33.3 % (39.0-52.0); Hemoglobin 11.2 g/dL (13.0-18.0); Mean Corp Hgb Conc. 33.6 g/dL (33.0-37.0); Mean Corpuscular Hgb 32.8 pg (27.0-31.0); Mean Corpuscular Volume 97.7 fL (80.0-94.0); Mean Platelet Volume 9.6 fL (7.4-10.4); Nucleated Red Blood Cells % 0 % (-); Platelet Count 379 10^3/uL (130-400); Red Blood Cell Count 3.41 10^6/uL (4.70-6.10); Red Cell Dist. Width 13.3 % (11.5-14.5); Reticulocyte Count 5.8 % (0.4-2.8); White Blood Cell Count 8.8 10^3/uL (4.8-10.8)
[2024-06-26 12:40] LABS: ALT (SGPT) 26 U/L (0-50); AST (SGOT) 23 U/L (17-59); Albumin 4.6 g/dl (3.5-5.0); Alkaline Phosphatase 98 U/L (38-126); Blood Urea Nitrogen 37 mg/dl (9-20); Direct Bilirubin 0.2 mg/dl (0.0-0.4); Total Protein 6.7 g/dl (6.3-8.2)
[2024-06-26 13:11] LABS: LDH 218 U/L (120-246)
== END ==
LOC: REG 10:38
PROVIDERS: ATTENDING PHYSICIAN Internal Medicine Hematology & Oncology; FAMILY PHYSICIAN Internal Medicine; OTHER PHYSICIAN Podiatrist Foot & Ankle Surgery; OTHER PHYSICIAN Surgery
DX: D59.9 Acquired hemolytic anemia, unspecified (principal); L12.9 Pemphigoid, unspecified
CPT/HCPCS: 36415; 80076; 82565; 83615; 84520; 85025; 85045

== ENCOUNTER → 2024-07-03 10:14 | Outpatient (REF) | payer MEDICARE, BC, SELFPAY ==
[2024-07-03 11:42] LABS: % Basophils 0.6 % (0-2); % Eosinophils 0.6 % (0-6); % Lymphocytes 5.9 % (20.5-51.1); % Monocytes 6.4 % (1.7-9.3); % Neutrophils 84.5 % (42.2-75.2); Absolute Immature Granulocytes 0.1 10^3/uL (0-0.05); Absolute Lymphocytes 0.4 10^3/uL (1.2-3.4); Absolute Monocytes 0.4 10^3/uL (0.1-0.6); Absolute Neutrophils 5.4 10^3/uL (1.4-6.5); Hematocrit 30.5 % (39.0-52.0); Hemoglobin 10.4 g/dL (13.0-18.0); Mean Corp Hgb Conc. 34.1 g/dL (33.0-37.0); Mean Corpuscular Hgb 31.6 pg (27.0-31.0); Mean Corpuscular Volume 92.7 fL (80.0-94.0); Nucleated Red Blood Cells % 0 % (-); Red Blood Cell Count 3.29 10^6/uL (4.70-6.10); Red Cell Dist. Width 13.6 % (11.5-14.5); Reticulocyte Count 6.3 % (0.4-2.8); White Blood Cell Count 6.4 10^3/uL (4.8-10.8)
[2024-07-03 12:01] LABS: ALT (SGPT) 25 U/L (0-50); AST (SGOT) 37 U/L (17-59); Albumin 4.4 g/dl (3.5-5.0); Alkaline Phosphatase 105 U/L (38-126); Blood Urea Nitrogen 39 mg/dl (9-20); Direct Bilirubin 0.3 mg/dl (0.0-0.4); LDH 321 U/L (120-246); Total Bilirubin 1.3 mg/dl (0.2-1.3); Total Protein 6.7 g/dl (6.3-8.2)
[2024-07-03 12:08] LABS: Blood Urea Nitrogen 38 mg/dl (9-20); Calcium 9.1 mg/dl (8.4-10.2); Carbon Dioxide 21 mmol/L (22-30); Chloride 98 mmol/L (98-107); Glucose 102 mg/dl (70-99); Potassium 4.8 mmol/L (3.5-5.1); Sodium 134 mmol/L (135-145); eGFR > 60.00
[2024-07-03 12:14] LABS: Mean Platelet Volume 10.9 fL (7.4-10.4); Platelet Count 267 10^3/uL (130-400)
[2024-07-05 02:45] LABS: Haptoglobin 132 mg/dL (30-200)
== END ==
LOC: REG 10:14
PROVIDERS: ATTENDING PHYSICIAN Internal Medicine Hematology & Oncology; FAMILY PHYSICIAN Internal Medicine; OTHER PHYSICIAN Surgery; REFERRING PHYSICIAN Specialist
DX: D59.9 Acquired hemolytic anemia, unspecified (principal); L12.9 Pemphigoid, unspecified; E87.1 Hypo-osmolality and hyponatremia
CPT/HCPCS: 36415; 80048; 80076; 82565; 83010; 83615; 84520; 85025; 85045

== ENCOUNTER → 2024-07-10 10:02 | Outpatient (REF) | payer MEDICARE, BC, SELFPAY ==
[2024-07-10 11:36] LABS: % Basophils 0.5 % (0-2); % Eosinophils 0.3 % (0-6); % Immature Granulocytes 0.9 % (0-0.5); % Lymphocytes 4.9 % (20.5-51.1); % Monocytes 6.5 % (1.7-9.3); % Neutrophils 86.9 % (42.2-75.2); Absolute Immature Granulocytes 0.1 10^3/uL (0-0.05); Absolute Lymphocytes 0.3 10^3/uL (1.2-3.4); Absolute Monocytes 0.4 10^3/uL (0.1-0.6); Absolute Neutrophils 5.7 10^3/uL (1.4-6.5); Hematocrit 29.5 % (39.0-52.0); Hemoglobin 9.7 g/dL (13.0-18.0); Mean Corp Hgb Conc. 32.9 g/dL (33.0-37.0); Mean Corpuscular Hgb 31.1 pg (27.0-31.0); Mean Corpuscular Volume 94.6 fL (80.0-94.0); Mean Platelet Volume 9.8 fL (7.4-10.4); Nucleated Red Blood Cells % 0 % (-); Platelet Count 335 10^3/uL (130-400); Red Blood Cell Count 3.12 10^6/uL (4.70-6.10); Red Cell Dist. Width 13.8 % (11.5-14.5); Reticulocyte Count 6.4 % (0.4-2.8); White Blood Cell Count 6.6 10^3/uL (4.8-10.8)
[2024-07-10 12:09] LABS: ALT (SGPT) 23 U/L (0-50); AST (SGOT) 23 U/L (17-59); Albumin 4.1 g/dl (3.5-5.0); Alkaline Phosphatase 118 U/L (38-126); Blood Urea Nitrogen 37 mg/dl (9-20); Direct Bilirubin 0.1 mg/dl (0.0-0.4); LDH 183 U/L (120-246); Total Protein 6.1 g/dl (6.3-8.2)
[2024-07-12 02:46] LABS: Haptoglobin 108 mg/dL (30-200)
== END ==
LOC: REG 10:02
PROVIDERS: ATTENDING PHYSICIAN Internal Medicine Hematology & Oncology; FAMILY PHYSICIAN Internal Medicine; REFERRING PHYSICIAN Surgery
DX: D59.9 Acquired hemolytic anemia, unspecified (principal); L12.9 Pemphigoid, unspecified
CPT/HCPCS: 36415; 80076; 82565; 83010; 83615; 84520; 85025; 85045

== ENCOUNTER → 2024-07-17 10:13 | Outpatient (REF) | payer MEDICARE, BC, SELFPAY ==
[2024-07-17 11:08] LABS: % Basophils 0.3 % (0-2); % Eosinophils 0.3 % (0-6); % Immature Granulocytes 0.8 % (0-0.5); % Lymphocytes 4.2 % (20.5-51.1); % Neutrophils 89.4 % (42.2-75.2); Absolute Immature Granulocytes 0.1 10^3/uL (0-0.05); Absolute Lymphocytes 0.3 10^3/uL (1.2-3.4); Absolute Monocytes 0.3 10^3/uL (0.1-0.6); Absolute Neutrophils 5.4 10^3/uL (1.4-6.5); Hematocrit 31.9 % (39.0-52.0); Hemoglobin 10.5 g/dL (13.0-18.0); Mean Corp Hgb Conc. 32.9 g/dL (33.0-37.0); Mean Corpuscular Hgb 31.5 pg (27.0-31.0); Mean Corpuscular Volume 95.8 fL (80.0-94.0); Mean Platelet Volume 9.5 fL (7.4-10.4); Nucleated Red Blood Cells % 0 % (-); Platelet Count 298 10^3/uL (130-400); Red Blood Cell Count 3.33 10^6/uL (4.70-6.10); Red Cell Dist. Width 13.5 % (11.5-14.5); Reticulocyte Count 5.8 % (0.4-2.8)
[2024-07-17 11:32] LABS: ALT (SGPT) 24 U/L (0-50); AST (SGOT) 22 U/L (17-59); Albumin 4.6 g/dl (3.5-5.0); Alkaline Phosphatase 121 U/L (38-126); Blood Urea Nitrogen 36 mg/dl (9-20); Direct Bilirubin 0.1 mg/dl (0.0-0.4); LDH 166 U/L (120-246); Total Bilirubin 1.2 mg/dl (0.2-1.3); Total Protein 6.6 g/dl (6.3-8.2)
[2024-07-19 21:10] LABS: Haptoglobin 121 mg/dL (30-200)
== END ==
LOC: REG 10:13
PROVIDERS: ATTENDING PHYSICIAN Internal Medicine Hematology & Oncology; FAMILY PHYSICIAN Internal Medicine
DX: D59.9 Acquired hemolytic anemia, unspecified (principal); L12.9 Pemphigoid, unspecified
CPT/HCPCS: 36415; 80076; 82565; 83010; 83615; 84520; 85025; 85045

== ENCOUNTER → 2024-07-24 10:12 | Outpatient (REF) | payer MEDICARE, BC, SELFPAY ==
[2024-07-24 12:27] LABS: % Basophils 0.6 % (0-2); % Eosinophils 0.6 % (0-6); % Lymphocytes 5.9 % (20.5-51.1); % Monocytes 7.3 % (1.7-9.3); % Neutrophils 84.6 % (42.2-75.2); Absolute Immature Granulocytes 0.1 10^3/uL (0-0.05); Absolute Lymphocytes 0.4 10^3/uL (1.2-3.4); Absolute Monocytes 0.5 10^3/uL (0.1-0.6); Absolute Neutrophils 5.3 10^3/uL (1.4-6.5); Hematocrit 33.5 % (39.0-52.0); Hemoglobin 10.7 g/dL (13.0-18.0); Mean Corp Hgb Conc. 31.9 g/dL (33.0-37.0); Mean Corpuscular Hgb 32.4 pg (27.0-31.0); Mean Corpuscular Volume 101.5 fL (80.0-94.0); Mean Platelet Volume 10.2 fL (7.4-10.4); Nucleated Red Blood Cells % 0 % (-); Platelet Count 314 10^3/uL (130-400); Red Cell Dist. Width 13.5 % (11.5-14.5); Reticulocyte Count 5.9 % (0.4-2.8); White Blood Cell Count 6.3 10^3/uL (4.8-10.8)
[2024-07-24 13:03] LABS: ALT (SGPT) 21 U/L (0-50); AST (SGOT) 24 U/L (17-59); Albumin 4.3 g/dl (3.5-5.0); Alkaline Phosphatase 109 U/L (38-126); Blood Urea Nitrogen 37 mg/dl (9-20); Direct Bilirubin 0.2 mg/dl (0.0-0.4); LDH 194 U/L (120-246); Total Bilirubin 1.3 mg/dl (0.2-1.3); Total Protein 6.3 g/dl (6.3-8.2)
== END ==
LOC: REG 10:12
PROVIDERS: ATTENDING PHYSICIAN Internal Medicine Hematology & Oncology; FAMILY PHYSICIAN Internal Medicine
DX: D59.9 Acquired hemolytic anemia, unspecified (principal); L12.9 Pemphigoid, unspecified
CPT/HCPCS: 36415; 80076; 82565; 83615; 84520; 85025; 85045

== ENCOUNTER → 2024-08-01 09:48 | Outpatient (REF) | payer MEDICARE, BC, SELFPAY ==
[2024-08-01 12:17] LABS: % Basophils 0.6 % (0-2); % Eosinophils 0.5 % (0-6); % Immature Granulocytes 0.8 % (0-0.5); % Lymphocytes 6.1 % (20.5-51.1); % Monocytes 8.3 % (1.7-9.3); % Neutrophils 83.7 % (42.2-75.2); Absolute Immature Granulocytes 0.1 10^3/uL (0-0.05); Absolute Lymphocytes 0.4 10^3/uL (1.2-3.4); Absolute Monocytes 0.5 10^3/uL (0.1-0.6); Absolute Neutrophils 5.5 10^3/uL (1.4-6.5); Hematocrit 33.3 % (39.0-52.0); Hemoglobin 10.7 g/dL (13.0-18.0); Mean Corp Hgb Conc. 32.1 g/dL (33.0-37.0); Mean Corpuscular Hgb 31.7 pg (27.0-31.0); Mean Corpuscular Volume 98.5 fL (80.0-94.0); Mean Platelet Volume 10.1 fL (7.4-10.4); Nucleated Red Blood Cells % 0 % (-); Platelet Count 364 10^3/uL (130-400); Red Blood Cell Count 3.38 10^6/uL (4.70-6.10); Red Cell Dist. Width 13.4 % (11.5-14.5); Reticulocyte Count 6.5 % (0.4-2.8); White Blood Cell Count 6.5 10^3/uL (4.8-10.8)
[2024-08-01 12:39] LABS: ALT (SGPT) 23 U/L (0-50); AST (SGOT) 24 U/L (17-59); Albumin 4.4 g/dl (3.5-5.0); Alkaline Phosphatase 127 U/L (38-126); Blood Urea Nitrogen 37 mg/dl (9-20); Calcium 9.2 mg/dl (8.4-10.2); Carbon Dioxide 24 mmol/L (22-30); Chloride 101 mmol/L (98-107); Direct Bilirubin 0.3 mg/dl (0.0-0.4); Glucose 95 mg/dl (70-99); LDH 200 U/L (120-246); Potassium 4.7 mmol/L (3.5-5.1); Sodium 135 mmol/L (135-145); Total Bilirubin 1.3 mg/dl (0.2-1.3); Total Protein 6.5 g/dl (6.3-8.2); eGFR > 60.00
[2024-08-03 20:31] LABS: Haptoglobin 103 mg/dL (30-200)
== END ==
LOC: REG 09:48
PROVIDERS: ATTENDING PHYSICIAN Internal Medicine Hematology & Oncology; FAMILY PHYSICIAN Specialist
DX: D59.9 Acquired hemolytic anemia, unspecified (principal); L12.9 Pemphigoid, unspecified; I10 Essential (primary) hypertension; E87.1 Hypo-osmolality and hyponatremia; D59.10 Autoimmune hemolytic anemia, unspecified
CPT/HCPCS: 36415; 80053; 82248; 83010; 83615; 85025; 85045

== ENCOUNTER → 2024-08-08 10:14 | Outpatient (REF) | payer MEDICARE, BC, SELFPAY ==
[2024-08-08 12:37] LABS: % Basophils 0.8 % (0-2); % Eosinophils 0.3 % (0-6); % Immature Granulocytes 0.6 % (0-0.5); % Lymphocytes 5.7 % (20.5-51.1); % Monocytes 7.3 % (1.7-9.3); % Neutrophils 85.3 % (42.2-75.2); Absolute Basophils 0.1 10^3/uL (0-0.2); Absolute Lymphocytes 0.4 10^3/uL (1.2-3.4); Absolute Monocytes 0.5 10^3/uL (0.1-0.6); Absolute Neutrophils 5.5 10^3/uL (1.4-6.5); Hematocrit 33.2 % (39.0-52.0); Mean Corp Hgb Conc. 33.1 g/dL (33.0-37.0); Mean Corpuscular Hgb 31.9 pg (27.0-31.0); Mean Corpuscular Volume 96.2 fL (80.0-94.0); Mean Platelet Volume 10.7 fL (7.4-10.4); Nucleated Red Blood Cells % 0 % (-); Platelet Count 303 10^3/uL (130-400); Red Blood Cell Count 3.45 10^6/uL (4.70-6.10); Red Cell Dist. Width 13.3 % (11.5-14.5); Reticulocyte Count 5.7 % (0.4-2.8); White Blood Cell Count 6.5 10^3/uL (4.8-10.8)
[2024-08-08 15:27] LABS: ALT (SGPT) 25 U/L (0-50); AST (SGOT) 27 U/L (17-59); Albumin 4.6 g/dl (3.5-5.0); Alkaline Phosphatase 117 U/L (38-126); Blood Urea Nitrogen 31 mg/dl (9-20); Direct Bilirubin 0.4 mg/dl (0.0-0.4); Total Bilirubin 1.2 mg/dl (0.2-1.3)
[2024-08-08 16:09] LABS: LDH 238 U/L (120-246)
[2024-08-11 05:15] LABS: Haptoglobin 125 mg/dL (30-200)
== END ==
LOC: CLAB 10:14
PROVIDERS: ATTENDING PHYSICIAN Internal Medicine Hematology & Oncology; FAMILY PHYSICIAN Internal Medicine
DX: D59.9 Acquired hemolytic anemia, unspecified (principal); L12.9 Pemphigoid, unspecified
CPT/HCPCS: 36415; 80076; 82565; 83010; 83615; 84520; 85025; 85045

== ENCOUNTER → 2024-08-15 10:24 | Outpatient (REF) | payer MEDICARE, BC, SELFPAY ==
[2024-08-15 11:58] LABS: % Basophils 0.9 % (0-2); % Eosinophils 2.4 % (0-6); % Immature Granulocytes 0.7 % (0-0.5); % Lymphocytes 4.9 % (20.5-51.1); % Monocytes 8.4 % (1.7-9.3); % Neutrophils 82.7 % (42.2-75.2); Absolute Basophils 0.1 10^3/uL (0-0.2); Absolute Eosinophils 0.2 10^3/uL (0-0.7); Absolute Immature Granulocytes 0.1 10^3/uL (0-0.05); Absolute Lymphocytes 0.3 10^3/uL (1.2-3.4); Absolute Monocytes 0.6 10^3/uL (0.1-0.6); Absolute Neutrophils 5.6 10^3/uL (1.4-6.5); Hematocrit 31.3 % (39.0-52.0); Mean Corp Hgb Conc. 31.9 g/dL (33.0-37.0); Mean Corpuscular Hgb 30.9 pg (27.0-31.0); Mean Corpuscular Volume 96.6 fL (80.0-94.0); Mean Platelet Volume 9.8 fL (7.4-10.4); Nucleated Red Blood Cells % 0 % (-); Platelet Count 311 10^3/uL (130-400); Red Blood Cell Count 3.24 10^6/uL (4.70-6.10); Red Cell Dist. Width 13.2 % (11.5-14.5); Reticulocyte Count 5.3 % (0.4-2.8); White Blood Cell Count 6.8 10^3/uL (4.8-10.8)
[2024-08-15 12:41] LABS: ALT (SGPT) 34 U/L (0-50); AST (SGOT) 29 U/L (17-59); Albumin 4.4 g/dl (3.5-5.0); Alkaline Phosphatase 147 U/L (38-126); Blood Urea Nitrogen 34 mg/dl (9-20); Direct Bilirubin 0.2 mg/dl (0.0-0.4); LDH 163 U/L (120-246); Total Bilirubin 1.1 mg/dl (0.2-1.3); Total Protein 6.5 g/dl (6.3-8.2)
[2024-08-16 23:59] LABS: Haptoglobin 143 mg/dL (30-200)
== END ==
LOC: REG 10:24
PROVIDERS: ATTENDING PHYSICIAN Internal Medicine Hematology & Oncology; FAMILY PHYSICIAN Internal Medicine
DX: D59.9 Acquired hemolytic anemia, unspecified (principal); L12.9 Pemphigoid, unspecified
CPT/HCPCS: 36415; 80076; 82565; 83010; 83615; 84520; 85025; 85045

== ENCOUNTER → 2024-08-22 10:11 | Outpatient (REF) | payer MEDICARE, BC, SELFPAY ==
[2024-08-22 11:38] LABS: % Basophils 0.6 % (0-2); % Immature Granulocytes 0.7 % (0-0.5); % Lymphocytes 3.3 % (20.5-51.1); % Monocytes 11.5 % (1.7-9.3); % Neutrophils 82.9 % (42.2-75.2); Absolute Basophils 0.1 10^3/uL (0-0.2); Absolute Eosinophils 0.1 10^3/uL (0-0.7); Absolute Immature Granulocytes 0.1 10^3/uL (0-0.05); Absolute Lymphocytes 0.3 10^3/uL (1.2-3.4); Absolute Monocytes 1.1 10^3/uL (0.1-0.6); Absolute Neutrophils 8.2 10^3/uL (1.4-6.5); Hematocrit 29.9 % (39.0-52.0); Hemoglobin 9.5 g/dL (13.0-18.0); Mean Corp Hgb Conc. 31.8 g/dL (33.0-37.0); Mean Corpuscular Hgb 30.3 pg (27.0-31.0); Mean Corpuscular Volume 95.2 fL (80.0-94.0); Mean Platelet Volume 10.3 fL (7.4-10.4); Nucleated Red Blood Cells % 0 % (-); Platelet Count 330 10^3/uL (130-400); Red Blood Cell Count 3.14 10^6/uL (4.70-6.10); Red Cell Dist. Width 13.5 % (11.5-14.5); Reticulocyte Count 5.5 % (0.4-2.8); White Blood Cell Count 9.9 10^3/uL (4.8-10.8)
[2024-08-22 11:55] LABS: ALT (SGPT) 43 U/L (0-50); AST (SGOT) 40 U/L (17-59); Albumin 4.1 g/dl (3.5-5.0); Alkaline Phosphatase 154 U/L (38-126); Blood Urea Nitrogen 26 mg/dl (9-20); Direct Bilirubin 0.3 mg/dl (0.0-0.4); LDH 174 U/L (120-246); Total Bilirubin 1.4 mg/dl (0.2-1.3); Total Protein 6.2 g/dl (6.3-8.2)
[2024-08-24 02:37] LABS: Haptoglobin 192 mg/dL (30-200)
== END ==
LOC: REG 10:11
PROVIDERS: ATTENDING PHYSICIAN Internal Medicine Hematology & Oncology; FAMILY PHYSICIAN Internal Medicine
DX: D59.9 Acquired hemolytic anemia, unspecified (principal); L12.9 Pemphigoid, unspecified
CPT/HCPCS: 36415; 80076; 82565; 83010; 83615; 84520; 85025; 85045

== ENCOUNTER → 2024-08-25 10:31 | Outpatient (REF) | payer MEDICARE, BC, SELFPAY ==
[2024-08-25 11:36] LABS: Erythrocyte Sed Rate 67 mm/hour (0-20)
[2024-08-25 11:52] LABS: Iron 50 ug/dl (49-181)
[2024-08-25 12:02] LABS: Percent Saturation 25 % (20-50); Total Iron Binding Capacity 198 ug/dl (261-462)
[2024-08-25 12:37] LABS: Vitamin B12 822 pg/ml (239-931)
[2024-08-26 13:39] LABS: Erythropoietin (EPO) 53 mU/mL (4-27)
[2024-08-27 03:02] LABS: Calcitonin <2.0 pg/mL (0.0-7.5)
== END ==
LOC: REG 10:31
PROVIDERS: ATTENDING PHYSICIAN Internal Medicine Hematology & Oncology; FAMILY PHYSICIAN Internal Medicine
DX: D59.9 Acquired hemolytic anemia, unspecified (principal); L12.9 Pemphigoid, unspecified; I47.10 Supraventricular tachycardia, unspecified; Z79.899 Other long term (current) drug therapy
CPT/HCPCS: 36415; 82308; 82607; 82668; 82728; 83540; 83550; 85652

== ENCOUNTER → 2024-08-29 10:29 | Outpatient (REF) | payer MEDICARE, BC, SELFPAY ==
[2024-08-29 11:18] LABS: % Basophils 0.9 % (0-2); % Eosinophils 3.4 % (0-6); % Immature Granulocytes 0.9 % (0-0.5); % Lymphocytes 3.2 % (20.5-51.1); % Monocytes 8.6 % (1.7-9.3); Absolute Basophils 0.1 10^3/uL (0-0.2); Absolute Eosinophils 0.4 10^3/uL (0-0.7); Absolute Immature Granulocytes 0.1 10^3/uL (0-0.05); Absolute Lymphocytes 0.3 10^3/uL (1.2-3.4); Absolute Monocytes 0.9 10^3/uL (0.1-0.6); Absolute Neutrophils 8.5 10^3/uL (1.4-6.5); Hematocrit 28.6 % (39.0-52.0); Hemoglobin 9.2 g/dL (13.0-18.0); Mean Corp Hgb Conc. 32.2 g/dL (33.0-37.0); Mean Corpuscular Hgb 30.3 pg (27.0-31.0); Mean Corpuscular Volume 94.1 fL (80.0-94.0); Mean Platelet Volume 9.6 fL (7.4-10.4); Nucleated Red Blood Cells % 0 % (-); Platelet Count 415 10^3/uL (130-400); Red Blood Cell Count 3.04 10^6/uL (4.70-6.10); Red Cell Dist. Width 13.7 % (11.5-14.5); Reticulocyte Count 5.2 % (0.4-2.8); White Blood Cell Count 10.2 10^3/uL (4.8-10.8)
[2024-08-29 11:44] LABS: ALT (SGPT) 30 U/L (0-50); AST (SGOT) 20 U/L (17-59); Alkaline Phosphatase 183 U/L (38-126); Blood Urea Nitrogen 31 mg/dl (9-20); Direct Bilirubin 0.2 mg/dl (0.0-0.4); Total Protein 6.2 g/dl (6.3-8.2)
[2024-08-29 14:29] LABS: LDH 146 U/L (120-246)
[2024-08-30 06:05] LABS: Haptoglobin 204 mg/dL (30-200)
== END ==
LOC: REG 10:29
PROVIDERS: ATTENDING PHYSICIAN Internal Medicine Hematology & Oncology; FAMILY PHYSICIAN Internal Medicine
DX: D59.9 Acquired hemolytic anemia, unspecified (principal); L12.9 Pemphigoid, unspecified
CPT/HCPCS: 36415; 80076; 82565; 83010; 83615; 84520; 85025; 85045

== ENCOUNTER → 2024-09-05 10:06 | Outpatient (REF) | payer MEDICARE, BC, SELFPAY ==
[2024-09-05 11:31] LABS: % Basophils 0.6 % (0-2); % Eosinophils 2.2 % (0-6); % Immature Granulocytes 0.5 % (0-0.5); % Lymphocytes 3.1 % (20.5-51.1); % Monocytes 8.9 % (1.7-9.3); % Neutrophils 84.7 % (42.2-75.2); Absolute Basophils 0.1 10^3/uL (0-0.2); Absolute Eosinophils 0.3 10^3/uL (0-0.7); Absolute Immature Granulocytes 0.1 10^3/uL (0-0.05); Absolute Lymphocytes 0.4 10^3/uL (1.2-3.4); Absolute Monocytes 1.2 10^3/uL (0.1-0.6); Hematocrit 29.6 % (39.0-52.0); Hemoglobin 9.5 g/dL (13.0-18.0); Mean Corp Hgb Conc. 32.1 g/dL (33.0-37.0); Mean Corpuscular Hgb 29.9 pg (27.0-31.0); Mean Corpuscular Volume 93.1 fL (80.0-94.0); Mean Platelet Volume 9.5 fL (7.4-10.4); Nucleated Red Blood Cells % 0 % (-); Platelet Count 465 10^3/uL (130-400); Red Blood Cell Count 3.18 10^6/uL (4.70-6.10); Red Cell Dist. Width 14.3 % (11.5-14.5); Reticulocyte Count 6.1 % (0.4-2.8)
[2024-09-05 16:41] LABS: ALT (SGPT) 23 U/L (0-50); AST (SGOT) 18 U/L (17-59); Albumin 3.9 g/dl (3.5-5.0); Alkaline Phosphatase 142 U/L (38-126); Blood Urea Nitrogen 33 mg/dl (9-20); Direct Bilirubin 0.1 mg/dl (0.0-0.4); Total Bilirubin 1.1 mg/dl (0.2-1.3); Total Protein 6.2 g/dl (6.3-8.2)
[2024-09-05 16:45] LABS: LDH 142 U/L (120-246)
[2024-09-07 18:19] LABS: Haptoglobin 215 mg/dL (30-200)
== END ==
LOC: REG 10:06
PROVIDERS: ATTENDING PHYSICIAN Internal Medicine Hematology & Oncology; FAMILY PHYSICIAN Internal Medicine
DX: D59.9 Acquired hemolytic anemia, unspecified (principal); L12.9 Pemphigoid, unspecified; D59.11 Warm autoimmune hemolytic anemia
CPT/HCPCS: 36415; 80076; 82565; 83010; 83615; 84520; 85025; 85045

== ENCOUNTER → 2024-09-17 10:06 | Outpatient (REF) | payer MEDICARE, BC, SELFPAY ==
[2024-09-17 11:12] LABS: % Basophils 0.5 % (0-2); % Immature Granulocytes 1.9 % (0-0.5); % Lymphocytes 2.6 % (20.5-51.1); % Monocytes 4.9 % (1.7-9.3); % Neutrophils 89.1 % (42.2-75.2); Absolute Basophils 0.1 10^3/uL (0-0.2); Absolute Eosinophils 0.2 10^3/uL (0-0.7); Absolute Immature Granulocytes 0.3 10^3/uL (0-0.05); Absolute Lymphocytes 0.4 10^3/uL (1.2-3.4); Absolute Monocytes 0.7 10^3/uL (0.1-0.6); Absolute Neutrophils 12.8 10^3/uL (1.4-6.5); Hematocrit 21.5 % (39.0-52.0); Hemoglobin 7.1 g/dL (13.0-18.0); Mean Corpuscular Hgb 30.7 pg (27.0-31.0); Mean Corpuscular Volume 93.1 fL (80.0-94.0); Mean Platelet Volume 9.7 fL (7.4-10.4); Nucleated Red Blood Cells % 0.2 % (-); Platelet Count 344 10^3/uL (130-400); Red Blood Cell Count 2.31 10^6/uL (4.70-6.10); Red Cell Dist. Width 20.2 % (11.5-14.5); Reticulocyte Count 12.8 % (0.4-2.8); White Blood Cell Count 14.4 10^3/uL (4.8-10.8)
[2024-09-17 11:36] LABS: ALT (SGPT) 15 U/L (0-50); AST (SGOT) 15 U/L (17-59); Albumin 3.6 g/dl (3.5-5.0); Alkaline Phosphatase 129 U/L (38-126); Blood Urea Nitrogen 36 mg/dl (9-20); Calcium 8.5 mg/dl (8.4-10.2); Carbon Dioxide 22 mmol/L (22-30); Chloride 98 mmol/L (98-107); Direct Bilirubin 0.1 mg/dl (0.0-0.4); Glucose 102 mg/dl (70-99); LDH 182 U/L (120-246); Potassium 4.6 mmol/L (3.5-5.1); Sodium 131 mmol/L (135-145); Total Bilirubin 2.5 mg/dl (0.2-1.3); Uric Acid 5.5 mg/dl (3.5-8.5); eGFR > 60.00
[2024-09-17 17:00] LABS: Osmolality Serum 280 mOsm/kg (275-300)
[2024-09-19 13:49] LABS: Haptoglobin 136 mg/dL (30-200)
== END ==
LOC: REG 10:06
PROVIDERS: ATTENDING PHYSICIAN Internal Medicine Hematology & Oncology; FAMILY PHYSICIAN Internal Medicine; REFERRING PHYSICIAN Specialist
DX: D55.9 Anemia due to enzyme disorder, unspecified (principal); L12.9 Pemphigoid, unspecified; E87.1 Hypo-osmolality and hyponatremia
CPT/HCPCS: 36415; 80053; 82248; 83010; 83615; 83930; 84550; 85025; 85045

== ENCOUNTER → 2024-09-24 10:16 | Outpatient (REF) | payer MEDICARE, BC, SELFPAY ==
[2024-09-24 10:59] LABS: % Basophils 0.4 % (0-2); % Eosinophils 0.4 % (0-6); % Immature Granulocytes 2.4 % (0-0.5); % Lymphocytes 2.3 % (20.5-51.1); % Monocytes 3.2 % (1.7-9.3); % Neutrophils 91.3 % (42.2-75.2); Absolute Basophils 0.1 10^3/uL (0-0.2); Absolute Eosinophils 0.1 10^3/uL (0-0.7); Absolute Immature Granulocytes 0.4 10^3/uL (0-0.05); Absolute Lymphocytes 0.4 10^3/uL (1.2-3.4); Absolute Monocytes 0.5 10^3/uL (0.1-0.6); Absolute Neutrophils 14.5 10^3/uL (1.4-6.5); Hematocrit 21.2 % (39.0-52.0); Hemoglobin 6.6 g/dL (13.0-18.0); Mean Corp Hgb Conc. 31.1 g/dL (33.0-37.0); Mean Corpuscular Hgb 33.5 pg (27.0-31.0); Mean Corpuscular Volume 107.6 fL (80.0-94.0); Mean Platelet Volume 9.9 fL (7.4-10.4); Nucleated Red Blood Cells % 0.6 % (-); Platelet Count 303 10^3/uL (130-400); Red Blood Cell Count 1.97 10^6/uL (4.70-6.10); Red Cell Dist. Width 26.1 % (11.5-14.5); Reticulocyte Count 27.8 % (0.4-2.8); White Blood Cell Count 15.9 10^3/uL (4.8-10.8)
[2024-09-24 11:54] LABS: ALT (SGPT) 16 U/L (0-50); AST (SGOT) 21 U/L (17-59); Albumin 4.2 g/dl (3.5-5.0); Alkaline Phosphatase 123 U/L (38-126); Blood Urea Nitrogen 39 mg/dl (9-20); Direct Bilirubin 0.3 mg/dl (0.0-0.4); LDH 256 U/L (120-246); Total Bilirubin 2.5 mg/dl (0.2-1.3); Total Protein 6.6 g/dl (6.3-8.2)
[2024-09-24 12:44] LABS: Anisocytosis 2+; Hypochromasia 1+; Macrocytosis 1+; Normal RBC Morphology No
[2024-09-24 12:45] LABS: Spherocytes 1+; Stomatocytes 1+
[2024-09-26 19:01] LABS: Haptoglobin 40 mg/dL (30-200)
== END ==
LOC: REG 10:16
PROVIDERS: ATTENDING PHYSICIAN Internal Medicine Hematology & Oncology; FAMILY PHYSICIAN Internal Medicine
DX: D59.9 Acquired hemolytic anemia, unspecified (principal); L12.9 Pemphigoid, unspecified
CPT/HCPCS: 36415; 80076; 82565; 83010; 83615; 84520; 85025; 85045

== ENCOUNTER 2024-09-25 09:06 | Outpatient (RCR) | payer MEDICARE, BC, SELFPAY ==
[2024-09-25] VITALS (7 sets, daily range): BP systolic 117–136; BP diastolic 53–61
[2024-09-25] MEDS: BENADRYL 25 MG PO (09:40)
[2024-09-25] MEDS: TYLENOL 650 MG PO (09:40)
== END 2024-10-03 23:59 | disposition home or self-care (01) ==
LOC: OID 09:06
PROVIDERS: ATTENDING PHYSICIAN Internal Medicine Hematology & Oncology; FAMILY PHYSICIAN Internal Medicine
DX: D59.9 Acquired hemolytic anemia, unspecified (principal)
CPT/HCPCS: 36415; 36430; 86850; 86870; 86900; 86901; 86920; 86922; P9016

== ENCOUNTER → 2024-10-01 10:01 | Outpatient (REF) | payer MEDICARE, BC, SELFPAY ==
[2024-10-01 11:55] LABS: ALT (SGPT) 16 U/L (0-50); AST (SGOT) 17 U/L (17-59); Alkaline Phosphatase 119 U/L (38-126); Blood Urea Nitrogen 35 mg/dl (9-20); Direct Bilirubin 0.4 mg/dl (0.0-0.4); Total Bilirubin 2.6 mg/dl (0.2-1.3); Total Protein 6.3 g/dl (6.3-8.2)
[2024-10-01 12:13] LABS: % Basophils 0.3 % (0-2); % Eosinophils 0.2 % (0-6); % Lymphocytes 1.8 % (20.5-51.1); % Monocytes 4.4 % (1.7-9.3); % Neutrophils 92.3 % (42.2-75.2); Absolute Immature Granulocytes 0.1 10^3/uL (0-0.05); Absolute Lymphocytes 0.2 10^3/uL (1.2-3.4); Absolute Monocytes 0.5 10^3/uL (0.1-0.6); Absolute Neutrophils 10.8 10^3/uL (1.4-6.5); Hematocrit 25.4 % (39.0-52.0); Hemoglobin 8.3 g/dL (13.0-18.0); Mean Corp Hgb Conc. 32.7 g/dL (33.0-37.0); Mean Corpuscular Hgb 34.3 pg (27.0-31.0); Mean Platelet Volume 10.9 fL (7.4-10.4); Nucleated Red Blood Cells % 0 % (-); Platelet Count 195 10^3/uL (130-400); Red Blood Cell Count 2.42 10^6/uL (4.70-6.10); Red Cell Dist. Width 19.8 % (11.5-14.5); Reticulocyte Count 16.5 % (0.4-2.8); White Blood Cell Count 11.7 10^3/uL (4.8-10.8)
[2024-10-01 14:15] LABS: LDH 236 U/L (120-246)
[2024-10-02 21:21] LABS: Haptoglobin 30 mg/dL (30-200)
== END ==
LOC: REG 10:01
PROVIDERS: ATTENDING PHYSICIAN Internal Medicine Hematology & Oncology
DX: D59.9 Acquired hemolytic anemia, unspecified (principal); L12.9 Pemphigoid, unspecified
CPT/HCPCS: 36415; 80076; 82565; 83010; 83615; 84520; 85025; 85045

== ENCOUNTER → 2024-10-08 09:48 | Outpatient (REF) | payer MEDICARE, BC, SELFPAY ==
[2024-10-08 11:34] LABS: % Basophils 0.4 % (0-2); % Eosinophils 0.3 % (0-6); % Immature Granulocytes 1.9 % (0-0.5); % Lymphocytes 2.3 % (20.5-51.1); % Monocytes 4.3 % (1.7-9.3); % Neutrophils 90.8 % (42.2-75.2); Absolute Basophils 0.1 10^3/uL (0-0.2); Absolute Immature Granulocytes 0.3 10^3/uL (0-0.05); Absolute Lymphocytes 0.3 10^3/uL (1.2-3.4); Absolute Monocytes 0.6 10^3/uL (0.1-0.6); Absolute Neutrophils 12.8 10^3/uL (1.4-6.5); Hematocrit 22.4 % (39.0-52.0); Hemoglobin 7.3 g/dL (13.0-18.0); Mean Corp Hgb Conc. 32.6 g/dL (33.0-37.0); Mean Corpuscular Hgb 35.1 pg (27.0-31.0); Mean Corpuscular Volume 107.7 fL (80.0-94.0); Mean Platelet Volume 11.1 fL (7.4-10.4); Nucleated Red Blood Cells % 0.4 % (-); Platelet Count 159 10^3/uL (130-400); Red Blood Cell Count 2.08 10^6/uL (4.70-6.10); Red Cell Dist. Width 20.7 % (11.5-14.5); Reticulocyte Count 22.8 % (0.4-2.8); White Blood Cell Count 14.1 10^3/uL (4.8-10.8)
[2024-10-08 14:33] LABS: ALT (SGPT) 19 U/L (0-50); AST (SGOT) 20 U/L (17-59); Albumin 4.2 g/dl (3.5-5.0); Alkaline Phosphatase 117 U/L (38-126); Blood Urea Nitrogen 39 mg/dl (9-20); Direct Bilirubin 0.6 mg/dl (0.0-0.4); Total Bilirubin 3.1 mg/dl (0.2-1.3); Total Protein 6.1 g/dl (6.3-8.2)
[2024-10-08 17:56] LABS: LDH 281 U/L (120-246)
[2024-10-09 18:59] LABS: Haptoglobin <10 mg/dL (30-200)
== END ==
LOC: REG 09:48
PROVIDERS: ATTENDING PHYSICIAN Internal Medicine Hematology & Oncology; FAMILY PHYSICIAN Internal Medicine
DX: D59.9 Acquired hemolytic anemia, unspecified (principal); L12.9 Pemphigoid, unspecified
CPT/HCPCS: 36415; 80076; 82565; 83010; 83615; 84520; 85025; 85045

== ENCOUNTER → 2024-10-15 10:33 | Outpatient (REF) | payer MEDICARE, BC, SELFPAY ==
[2024-10-15 11:29] LABS: % Basophils 0.2 % (0-2); % Eosinophils 0.2 % (0-6); % Immature Granulocytes 4.1 % (0-0.5); % Lymphocytes 2.3 % (20.5-51.1); % Monocytes 3.3 % (1.7-9.3); % Neutrophils 89.9 % (42.2-75.2); Absolute Immature Granulocytes 0.5 10^3/uL (0-0.05); Absolute Lymphocytes 0.3 10^3/uL (1.2-3.4); Absolute Monocytes 0.4 10^3/uL (0.1-0.6); Absolute Neutrophils 11.1 10^3/uL (1.4-6.5); Hematocrit 22.3 % (39.0-52.0); Hemoglobin 7.3 g/dL (13.0-18.0); Mean Corp Hgb Conc. 32.7 g/dL (33.0-37.0); Mean Corpuscular Hgb 35.8 pg (27.0-31.0); Mean Corpuscular Volume 109.3 fL (80.0-94.0); Nucleated Red Blood Cells % 1.1 % (-); Red Blood Cell Count 2.04 10^6/uL (4.70-6.10); Red Cell Dist. Width 20.5 % (11.5-14.5); Reticulocyte Count 27.1 % (0.4-2.8); White Blood Cell Count 12.3 10^3/uL (4.8-10.8)
[2024-10-15 11:47] LABS: Anisocytosis 2+; Macrocytosis 2+; Normal RBC Morphology No
[2024-10-15 11:49] LABS: Polychromasia 2+
[2024-10-15 12:34] LABS: ALT (SGPT) 18 U/L (0-50); AST (SGOT) 28 U/L (17-59); Albumin 3.9 g/dl (3.5-5.0); Alkaline Phosphatase 98 U/L (38-126); Blood Urea Nitrogen 38 mg/dl (9-20); Direct Bilirubin 0.4 mg/dl (0.0-0.4); LDH 355 U/L (120-246); Total Protein 6.1 g/dl (6.3-8.2)
[2024-10-18 02:03] LABS: Haptoglobin <10 mg/dL (30-200)
== END ==
LOC: REG 10:33
PROVIDERS: ATTENDING PHYSICIAN Internal Medicine Hematology & Oncology; FAMILY PHYSICIAN Internal Medicine
DX: D59.9 Acquired hemolytic anemia, unspecified (principal); L12.9 Pemphigoid, unspecified
CPT/HCPCS: 36415; 80076; 82565; 83010; 83615; 84520; 85025; 85045

== ENCOUNTER → 2024-10-22 09:58 | Outpatient (REF) | payer MEDICARE, BC, SELFPAY ==
[2024-10-22 10:54] LABS: % Basophils 0.2 % (0-2); % Eosinophils 0.4 % (0-6); % Immature Granulocytes 1.7 % (0-0.5); % Lymphocytes 1.5 % (20.5-51.1); % Monocytes 2.7 % (1.7-9.3); % Neutrophils 93.5 % (42.2-75.2); Absolute Immature Granulocytes 0.2 10^3/uL (0-0.05); Absolute Lymphocytes 0.2 10^3/uL (1.2-3.4); Absolute Monocytes 0.3 10^3/uL (0.1-0.6); Absolute Neutrophils 10.1 10^3/uL (1.4-6.5); Hemoglobin 8.4 g/dL (13.0-18.0); Mean Corp Hgb Conc. 31.1 g/dL (33.0-37.0); Mean Corpuscular Hgb 34.9 pg (27.0-31.0); Mean Platelet Volume 10.4 fL (7.4-10.4); Nucleated Red Blood Cells % 0.4 % (-); Platelet Count 107 10^3/uL (130-400); Red Blood Cell Count 2.41 10^6/uL (4.70-6.10); Reticulocyte Count 23.3 % (0.4-2.8); White Blood Cell Count 10.8 10^3/uL (4.8-10.8)
[2024-10-22 12:11] LABS: ALT (SGPT) 19 U/L (0-50); AST (SGOT) 18 U/L (17-59); Albumin 4.5 g/dl (3.5-5.0); Alkaline Phosphatase 102 U/L (38-126); Blood Urea Nitrogen 37 mg/dl (9-20); Direct Bilirubin 0.3 mg/dl (0.0-0.4); Total Bilirubin 2.8 mg/dl (0.2-1.3); Total Protein 6.5 g/dl (6.3-8.2)
[2024-10-22 12:16] LABS: LDH 262 U/L (120-246)
[2024-10-23 14:07] LABS: Haptoglobin <10 mg/dL (30-200)
== END ==
LOC: REG 09:58
PROVIDERS: ATTENDING PHYSICIAN Internal Medicine Hematology & Oncology; FAMILY PHYSICIAN Internal Medicine
DX: D59.9 Acquired hemolytic anemia, unspecified (principal); L12.9 Pemphigoid, unspecified
CPT/HCPCS: 36415; 80076; 82565; 83010; 83615; 84520; 85025; 85045

== ENCOUNTER → 2024-10-29 09:46 | Outpatient (REF) | payer MEDICARE, BC, SELFPAY ==
[2024-10-29 10:33] LABS: Osmolality Urine 277 mOsm/kg (300-900)
[2024-10-29 10:43] LABS: % Basophils 0.1 % (0-2); % Eosinophils 0.2 % (0-6); % Immature Granulocytes 1.9 % (0-0.5); % Neutrophils 93.8 % (42.2-75.2); Absolute Immature Granulocytes 0.2 10^3/uL (0-0.05); Absolute Lymphocytes 0.2 10^3/uL (1.2-3.4); Absolute Monocytes 0.2 10^3/uL (0.1-0.6); Absolute Neutrophils 10.6 10^3/uL (1.4-6.5); Hematocrit 29.7 % (39.0-52.0); Hemoglobin 9.5 g/dL (13.0-18.0); Mean Corpuscular Hgb 35.3 pg (27.0-31.0); Mean Corpuscular Volume 110.4 fL (80.0-94.0); Mean Platelet Volume 9.7 fL (7.4-10.4); Nucleated Red Blood Cells % 0 % (-); Platelet Count 171 10^3/uL (130-400); Red Blood Cell Count 2.69 10^6/uL (4.70-6.10); Red Cell Dist. Width 16.3 % (11.5-14.5); Reticulocyte Count 16.1 % (0.4-2.8); White Blood Cell Count 11.3 10^3/uL (4.8-10.8)
[2024-10-29 11:11] LABS: ALT (SGPT) 21 U/L (0-50); AST (SGOT) 16 U/L (17-59); Albumin 4.1 g/dl (3.5-5.0); Alkaline Phosphatase 85 U/L (38-126); Blood Urea Nitrogen 33 mg/dl (9-20); Calcium 9.1 mg/dl (8.4-10.2); Carbon Dioxide 25 mmol/L (22-30); Chloride 99 mmol/L (98-107); Direct Bilirubin 0.5 mg/dl (0.0-0.4); Glucose 103 mg/dl (70-99); LDH 222 U/L (120-246); Potassium 4.1 mmol/L (3.5-5.1); Sodium 133 mmol/L (135-145); Total Bilirubin 2.5 mg/dl (0.2-1.3); Total Protein 6.1 g/dl (6.3-8.2); eGFR > 60.00
[2024-10-31 11:07] LABS: Haptoglobin 26 mg/dL (30-200)
== END ==
LOC: REG 09:46
PROVIDERS: ATTENDING PHYSICIAN Specialist; FAMILY PHYSICIAN Internal Medicine; OTHER PHYSICIAN Internal Medicine Hematology & Oncology
DX: I10 Essential (primary) hypertension (principal); E87.1 Hypo-osmolality and hyponatremia; E03.9 Hypothyroidism, unspecified; E78.2 Mixed hyperlipidemia; D59.9 Acquired hemolytic anemia, unspecified; L12.9 Pemphigoid, unspecified
CPT/HCPCS: 36415; 80053; 82248; 83010; 83615; 83935; 85025; 85045

== ENCOUNTER → 2024-11-05 09:37 | Outpatient (REF) | payer MEDICARE, BC, SELFPAY ==
[2024-11-05 10:33] LABS: % Basophils 0.1 % (0-2); % Eosinophils 0.2 % (0-6); % Immature Granulocytes 1.3 % (0-0.5); % Monocytes 2.3 % (1.7-9.3); % Neutrophils 94.1 % (42.2-75.2); Absolute Immature Granulocytes 0.1 10^3/uL (0-0.05); Absolute Lymphocytes 0.2 10^3/uL (1.2-3.4); Absolute Monocytes 0.3 10^3/uL (0.1-0.6); Absolute Neutrophils 10.2 10^3/uL (1.4-6.5); Hematocrit 29.2 % (39.0-52.0); Hemoglobin 9.6 g/dL (13.0-18.0); Mean Corp Hgb Conc. 32.9 g/dL (33.0-37.0); Mean Corpuscular Hgb 34.4 pg (27.0-31.0); Mean Corpuscular Volume 104.7 fL (80.0-94.0); Mean Platelet Volume 9.6 fL (7.4-10.4); Nucleated Red Blood Cells % 0 % (-); Platelet Count 159 10^3/uL (130-400); Red Blood Cell Count 2.79 10^6/uL (4.70-6.10); Red Cell Dist. Width 14.7 % (11.5-14.5); Reticulocyte Count 14.4 % (0.4-2.8); White Blood Cell Count 10.9 10^3/uL (4.8-10.8)
[2024-11-05 11:27] LABS: ALT (SGPT) 21 U/L (0-50); AST (SGOT) 19 U/L (17-59); Albumin 4.1 g/dl (3.5-5.0); Alkaline Phosphatase 90 U/L (38-126); Blood Urea Nitrogen 36 mg/dl (9-20); Direct Bilirubin 0.4 mg/dl (0.0-0.4); LDH 254 U/L (120-246); Total Bilirubin 2.7 mg/dl (0.2-1.3); Total Protein 6.1 g/dl (6.3-8.2)
[2024-11-07 20:54] LABS: Haptoglobin <10 mg/dL (30-200)
== END ==
LOC: REG 09:37
PROVIDERS: ATTENDING PHYSICIAN Internal Medicine Hematology & Oncology; FAMILY PHYSICIAN Internal Medicine
DX: D59.9 Acquired hemolytic anemia, unspecified (principal); L12.9 Pemphigoid, unspecified
CPT/HCPCS: 36415; 80076; 82565; 83010; 83615; 84520; 85025; 85045

== ENCOUNTER → 2024-11-12 09:42 | Outpatient (REF) | payer MEDICARE, BC, SELFPAY ==
[2024-11-12 11:06] LABS: ALT (SGPT) 20 U/L (0-50); AST (SGOT) 16 U/L (17-59); Albumin 3.9 g/dl (3.5-5.0); Alkaline Phosphatase 97 U/L (38-126); Blood Urea Nitrogen 35 mg/dl (9-20); Direct Bilirubin 0.4 mg/dl (0.0-0.4); LDH 228 U/L (120-246); Total Bilirubin 2.1 mg/dl (0.2-1.3); Total Protein 5.8 g/dl (6.3-8.2)
[2024-11-12 11:29] LABS: % Basophils 0.2 % (0-2); % Eosinophils 0.1 % (0-6); % Lymphocytes 1.9 % (20.5-51.1); % Monocytes 2.1 % (1.7-9.3); % Neutrophils 93.7 % (42.2-75.2); Absolute Immature Granulocytes 0.2 10^3/uL (0-0.05); Absolute Lymphocytes 0.2 10^3/uL (1.2-3.4); Absolute Monocytes 0.2 10^3/uL (0.1-0.6); Absolute Neutrophils 10.5 10^3/uL (1.4-6.5); Hematocrit 28.6 % (39.0-52.0); Hemoglobin 9.4 g/dL (13.0-18.0); Mean Corp Hgb Conc. 32.9 g/dL (33.0-37.0); Mean Corpuscular Hgb 34.1 pg (27.0-31.0); Mean Corpuscular Volume 103.6 fL (80.0-94.0); Mean Platelet Volume 10.2 fL (7.4-10.4); Nucleated Red Blood Cells % 0.2 % (-); Platelet Count 154 10^3/uL (130-400); Red Blood Cell Count 2.76 10^6/uL (4.70-6.10); Red Cell Dist. Width 15.5 % (11.5-14.5); White Blood Cell Count 11.2 10^3/uL (4.8-10.8)
[2024-11-12 11:30] LABS: Reticulocyte Count 13.4 % (0.4-2.8)
[2024-11-13 21:12] LABS: Haptoglobin 46 mg/dL (30-200)
== END ==
LOC: REG 09:42
PROVIDERS: ATTENDING PHYSICIAN Internal Medicine Hematology & Oncology; FAMILY PHYSICIAN Internal Medicine
DX: D59.9 Acquired hemolytic anemia, unspecified (principal); L12.9 Pemphigoid, unspecified; D59.11 Warm autoimmune hemolytic anemia
CPT/HCPCS: 36415; 80076; 82565; 83010; 83615; 84520; 85025; 85045

== ENCOUNTER → 2024-11-19 09:43 | Outpatient (REF) | payer MEDICARE, BC, SELFPAY ==
[2024-11-19 11:12] LABS: % Basophils 0.2 % (0-2); % Eosinophils 0.1 % (0-6); % Immature Granulocytes 1.7 % (0-0.5); Absolute Immature Granulocytes 0.2 10^3/uL (0-0.05); Absolute Lymphocytes 0.3 10^3/uL (1.2-3.4); Absolute Monocytes 0.3 10^3/uL (0.1-0.6); Absolute Neutrophils 11.6 10^3/uL (1.4-6.5); Hematocrit 29.5 % (39.0-52.0); Hemoglobin 9.7 g/dL (13.0-18.0); Mean Corp Hgb Conc. 32.9 g/dL (33.0-37.0); Mean Corpuscular Hgb 33.6 pg (27.0-31.0); Mean Corpuscular Volume 102.1 fL (80.0-94.0); Mean Platelet Volume 9.6 fL (7.4-10.4); Nucleated Red Blood Cells % 0.2 % (-); Platelet Count 225 10^3/uL (130-400); Red Blood Cell Count 2.89 10^6/uL (4.70-6.10); Reticulocyte Count 12.8 % (0.4-2.8); White Blood Cell Count 12.4 10^3/uL (4.8-10.8)
[2024-11-19 12:10] LABS: ALT (SGPT) 22 U/L (0-50); AST (SGOT) 17 U/L (17-59); Albumin 4.5 g/dl (3.5-5.0); Alkaline Phosphatase 79 U/L (38-126); Blood Urea Nitrogen 36 mg/dl (9-20); Direct Bilirubin 0.3 mg/dl (0.0-0.4); Total Bilirubin 1.9 mg/dl (0.2-1.3); Total Protein 6.2 g/dl (6.3-8.2)
[2024-11-19 13:41] LABS: LDH 229 U/L (120-246)
[2024-11-21 06:31] LABS: Haptoglobin 44 mg/dL (30-200)
== END ==
LOC: REG 09:43
PROVIDERS: ATTENDING PHYSICIAN Internal Medicine Hematology & Oncology; FAMILY PHYSICIAN Internal Medicine
DX: D59.9 Acquired hemolytic anemia, unspecified (principal); L12.9 Pemphigoid, unspecified
CPT/HCPCS: 36415; 80076; 82565; 83010; 83615; 84520; 85025; 85045

== ENCOUNTER → 2024-11-26 09:41 | Outpatient (REF) | payer MEDICARE, BC, SELFPAY ==
[2024-11-26 10:41] LABS: % Basophils 0.2 % (0-2); % Eosinophils 0.1 % (0-6); % Immature Granulocytes 1.7 % (0-0.5); % Monocytes 1.9 % (1.7-9.3); % Neutrophils 94.1 % (42.2-75.2); Absolute Immature Granulocytes 0.2 10^3/uL (0-0.05); Absolute Lymphocytes 0.2 10^3/uL (1.2-3.4); Absolute Monocytes 0.2 10^3/uL (0.1-0.6); Absolute Neutrophils 10.3 10^3/uL (1.4-6.5); Hemoglobin 9.3 g/dL (13.0-18.0); Mean Corp Hgb Conc. 33.2 g/dL (33.0-37.0); Mean Corpuscular Hgb 33.9 pg (27.0-31.0); Mean Corpuscular Volume 102.2 fL (80.0-94.0); Mean Platelet Volume 9.9 fL (7.4-10.4); Nucleated Red Blood Cells % 0 % (-); Platelet Count 206 10^3/uL (130-400); Red Blood Cell Count 2.74 10^6/uL (4.70-6.10); Red Cell Dist. Width 16.5 % (11.5-14.5)
[2024-11-26 11:19] LABS: ALT (SGPT) 23 U/L (0-50); AST (SGOT) 17 U/L (17-59); Alkaline Phosphatase 85 U/L (38-126); Blood Urea Nitrogen 32 mg/dl (9-20); Direct Bilirubin 0.3 mg/dl (0.0-0.4); LDH 222 U/L (120-246); Total Protein 5.9 g/dl (6.3-8.2)
[2024-11-26 11:51] LABS: Reticulocyte Count 12.4 % (0.4-2.8)
[2024-11-27 17:12] LABS: Haptoglobin 44 mg/dL (30-200)
== END ==
LOC: REG 09:41
PROVIDERS: ATTENDING PHYSICIAN Internal Medicine Hematology & Oncology; FAMILY PHYSICIAN Internal Medicine
DX: D59.9 Acquired hemolytic anemia, unspecified (principal); L12.9 Pemphigoid, unspecified
CPT/HCPCS: 36415; 80076; 82565; 83010; 83615; 84520; 85025; 85045

== ENCOUNTER → 2024-12-03 10:12 | Outpatient (REF) | payer MEDICARE, BC, SELFPAY ==
[2024-12-03 11:01] LABS: % Basophils 0.1 % (0-2); % Eosinophils 0.1 % (0-6); % Immature Granulocytes 1.8 % (0-0.5); % Lymphocytes 1.6 % (20.5-51.1); % Monocytes 3.3 % (1.7-9.3); % Neutrophils 93.1 % (42.2-75.2); Absolute Immature Granulocytes 0.3 10^3/uL (0-0.05); Absolute Lymphocytes 0.3 10^3/uL (1.2-3.4); Absolute Monocytes 0.5 10^3/uL (0.1-0.6); Absolute Neutrophils 14.2 10^3/uL (1.4-6.5); Hematocrit 22.7 % (39.0-52.0); Hemoglobin 7.5 g/dL (13.0-18.0); Mean Corpuscular Hgb 33.6 pg (27.0-31.0); Mean Corpuscular Volume 101.8 fL (80.0-94.0); Mean Platelet Volume 10.1 fL (7.4-10.4); Nucleated Red Blood Cells % 0 % (-); Platelet Count 228 10^3/uL (130-400); Red Blood Cell Count 2.23 10^6/uL (4.70-6.10); Red Cell Dist. Width 15.4 % (11.5-14.5); Reticulocyte Count 15.3 % (0.4-2.8); White Blood Cell Count 15.3 10^3/uL (4.8-10.8)
[2024-12-03 12:07] LABS: ALT (SGPT) 32 U/L (0-50); AST (SGOT) 22 U/L (17-59); Albumin 3.7 g/dl (3.5-5.0); Alkaline Phosphatase 99 U/L (38-126); Blood Urea Nitrogen 32 mg/dl (9-20); Calcium 8.9 mg/dl (8.4-10.2); Carbon Dioxide 24 mmol/L (22-30); Chloride 99 mmol/L (98-107); Direct Bilirubin 0.4 mg/dl (0.0-0.4); Glucose 121 mg/dl (70-99); LDH 303 U/L (120-246); Potassium 4.5 mmol/L (3.5-5.1); Sodium 131 mmol/L (135-145); Total Bilirubin 2.4 mg/dl (0.2-1.3); Total Protein 5.8 g/dl (6.3-8.2); eGFR > 60.00
[2024-12-04 17:15] LABS: Haptoglobin 84 mg/dL (30-200)
== END ==
LOC: REG 10:12
PROVIDERS: ATTENDING PHYSICIAN Internal Medicine Hematology & Oncology; FAMILY PHYSICIAN Internal Medicine; REFERRING PHYSICIAN Specialist
DX: D59.9 Acquired hemolytic anemia, unspecified (principal); L12.9 Pemphigoid, unspecified; I10 Essential (primary) hypertension; E87.1 Hypo-osmolality and hyponatremia
CPT/HCPCS: 36415; 80053; 82248; 83010; 83615; 85025; 85045

== ENCOUNTER 2024-12-09 08:59 | Outpatient (RCR) | payer MEDICARE, BC, SELFPAY ==
[2024-12-09] MEDS: TYLENOL 650 MG PO (09:52)
[2024-12-09] MEDS: BENADRYL 25 MG PO (09:52)
[2024-12-09 10:04] VITALS: BP 134/56
[2024-12-09 10:21] VITALS: BP 120/54
[2024-12-09 11:40] VITALS: BP 121/60
[2024-12-09 11:53] VITALS: BP 121/60
[2024-12-09 12:11] VITALS: BP 125/68
[2024-12-09 14:05] VITALS: BP 138/65
== END 2024-12-31 23:59 | disposition home or self-care (01) ==
LOC: OID 08:59
PROVIDERS: ATTENDING PHYSICIAN Internal Medicine Hematology & Oncology; FAMILY PHYSICIAN Internal Medicine
DX: D59.0 Drug-induced autoimmune hemolytic anemia (principal); D59.9 Acquired hemolytic anemia, unspecified
CPT/HCPCS: 36415; 36430; 86850; 86870; 86900; 86901; 86920; 86922; P9016

== ENCOUNTER → 2024-12-10 09:45 | Outpatient (REF) | payer MEDICARE, BC, SELFPAY ==
[2024-12-10 11:17] LABS: % Basophils 0.2 % (0-2); % Eosinophils 0.2 % (0-6); % Immature Granulocytes 2.7 % (0-0.5); % Lymphocytes 1.5 % (20.5-51.1); % Neutrophils 93.4 % (42.2-75.2); Absolute Immature Granulocytes 0.4 10^3/uL (0-0.05); Absolute Lymphocytes 0.2 10^3/uL (1.2-3.4); Absolute Monocytes 0.3 10^3/uL (0.1-0.6); Absolute Neutrophils 12.3 10^3/uL (1.4-6.5); Hemoglobin 9.9 g/dL (13.0-18.0); Mean Corp Hgb Conc. 31.9 g/dL (33.0-37.0); Mean Corpuscular Hgb 30.7 pg (27.0-31.0); Mean Corpuscular Volume 96.3 fL (80.0-94.0); Mean Platelet Volume 9.5 fL (7.4-10.4); Nucleated Red Blood Cells % 0.2 % (-); Platelet Count 301 10^3/uL (130-400); Red Blood Cell Count 3.22 10^6/uL (4.70-6.10); Red Cell Dist. Width 19.4 % (11.5-14.5); Reticulocyte Count 13.4 % (0.4-2.8); White Blood Cell Count 13.1 10^3/uL (4.8-10.8)
[2024-12-10 11:20] LABS: ALT (SGPT) 25 U/L (0-50); AST (SGOT) 18 U/L (17-59); Albumin 3.5 g/dl (3.5-5.0); Alkaline Phosphatase 100 U/L (38-126); Blood Urea Nitrogen 28 mg/dl (9-20); Direct Bilirubin 0.3 mg/dl (0.0-0.4); LDH 246 U/L (120-246); Total Bilirubin 1.8 mg/dl (0.2-1.3); Total Protein 5.6 g/dl (6.3-8.2)
[2024-12-11 21:47] LABS: Haptoglobin 115 mg/dL (30-200)
== END ==
LOC: REG 09:45
PROVIDERS: ATTENDING PHYSICIAN Internal Medicine Hematology & Oncology; FAMILY PHYSICIAN Internal Medicine
DX: D59.9 Acquired hemolytic anemia, unspecified (principal); L12.9 Pemphigoid, unspecified
CPT/HCPCS: 36415; 80076; 82565; 83010; 83615; 84520; 85025; 85045

== ENCOUNTER → 2024-12-17 09:53 | Outpatient (REF) | payer MEDICARE, BC, SELFPAY ==
[2024-12-17 10:49] LABS: % Basophils 0.2 % (0-2); % Eosinophils 0.1 % (0-6); % Immature Granulocytes 1.8 % (0-0.5); % Lymphocytes 1.9 % (20.5-51.1); Absolute Immature Granulocytes 0.2 10^3/uL (0-0.05); Absolute Lymphocytes 0.2 10^3/uL (1.2-3.4); Absolute Monocytes 0.2 10^3/uL (0.1-0.6); Absolute Neutrophils 9.5 10^3/uL (1.4-6.5); Hematocrit 30.4 % (39.0-52.0); Hemoglobin 9.9 g/dL (13.0-18.0); Mean Corp Hgb Conc. 32.6 g/dL (33.0-37.0); Mean Corpuscular Hgb 31.2 pg (27.0-31.0); Mean Corpuscular Volume 95.9 fL (80.0-94.0); Mean Platelet Volume 9.2 fL (7.4-10.4); Nucleated Red Blood Cells % 0.2 % (-); Platelet Count 248 10^3/uL (130-400); Red Blood Cell Count 3.17 10^6/uL (4.70-6.10); Red Cell Dist. Width 18.2 % (11.5-14.5); Reticulocyte Count 10.9 % (0.4-2.8); White Blood Cell Count 10.1 10^3/uL (4.8-10.8)
[2024-12-17 11:52] LABS: ALT (SGPT) 35 U/L (0-50); AST (SGOT) 20 U/L (17-59); Albumin 3.5 g/dl (3.5-5.0); Alkaline Phosphatase 97 U/L (38-126); Blood Urea Nitrogen 33 mg/dl (9-20); Direct Bilirubin 0.3 mg/dl (0.0-0.4); LDH 198 U/L (120-246); Total Bilirubin 1.4 mg/dl (0.2-1.3); Total Protein 5.5 g/dl (6.3-8.2)
[2024-12-19 15:01] LABS: Haptoglobin 82 mg/dL (30-200)
== END ==
LOC: REG 09:53
PROVIDERS: ATTENDING PHYSICIAN Internal Medicine Hematology & Oncology; FAMILY PHYSICIAN Internal Medicine
DX: D59.9 Acquired hemolytic anemia, unspecified (principal); L12.9 Pemphigoid, unspecified
CPT/HCPCS: 36415; 80076; 82565; 83010; 83615; 84520; 85025; 85045

== ENCOUNTER → 2024-12-24 09:43 | Outpatient (REF) | payer MEDICARE, BC, SELFPAY ==
[2024-12-24 10:50] LABS: % Basophils 0.1 % (0-2); % Immature Granulocytes 1.7 % (0-0.5); % Lymphocytes 1.7 % (20.5-51.1); % Monocytes 1.5 % (1.7-9.3); Absolute Immature Granulocytes 0.2 10^3/uL (0-0.05); Absolute Lymphocytes 0.2 10^3/uL (1.2-3.4); Absolute Monocytes 0.1 10^3/uL (0.1-0.6); Absolute Neutrophils 8.4 10^3/uL (1.4-6.5); Hematocrit 31.8 % (39.0-52.0); Hemoglobin 10.4 g/dL (13.0-18.0); Mean Corp Hgb Conc. 32.7 g/dL (33.0-37.0); Mean Corpuscular Hgb 31.9 pg (27.0-31.0); Mean Corpuscular Volume 97.5 fL (80.0-94.0); Mean Platelet Volume 9.4 fL (7.4-10.4); Nucleated Red Blood Cells % 0 % (-); Platelet Count 250 10^3/uL (130-400); Red Blood Cell Count 3.26 10^6/uL (4.70-6.10); Red Cell Dist. Width 17.6 % (11.5-14.5); Reticulocyte Count 9.3 % (0.4-2.8); White Blood Cell Count 8.9 10^3/uL (4.8-10.8)
[2024-12-24 11:36] LABS: ALT (SGPT) 29 U/L (0-50); AST (SGOT) 18 U/L (17-59); Albumin 3.8 g/dl (3.5-5.0); Alkaline Phosphatase 79 U/L (38-126); Blood Urea Nitrogen 31 mg/dl (9-20); Direct Bilirubin 0.4 mg/dl (0.0-0.4); LDH 187 U/L (120-246); Total Bilirubin 1.7 mg/dl (0.2-1.3); Total Protein 5.5 g/dl (6.3-8.2)
[2024-12-26 05:04] LABS: Haptoglobin 63 mg/dL (30-200)
== END ==
LOC: REG 09:43
PROVIDERS: ATTENDING PHYSICIAN Internal Medicine Hematology & Oncology; FAMILY PHYSICIAN Internal Medicine
DX: D59.9 Acquired hemolytic anemia, unspecified (principal); L12.9 Pemphigoid, unspecified
CPT/HCPCS: 36415; 80076; 82565; 83010; 83615; 84520; 85025; 85045

== ENCOUNTER → 2024-12-31 09:36 | Outpatient (REF) | payer MEDICARE, BC, SELFPAY ==
[2024-12-31 10:09] LABS: % Basophils 0.1 % (0-2); % Lymphocytes 1.6 % (20.5-51.1); % Monocytes 1.9 % (1.7-9.3); % Neutrophils 94.4 % (42.2-75.2); Absolute Immature Granulocytes 0.2 10^3/uL (0-0.05); Absolute Lymphocytes 0.1 10^3/uL (1.2-3.4); Absolute Monocytes 0.2 10^3/uL (0.1-0.6); Absolute Neutrophils 7.5 10^3/uL (1.4-6.5); Hemoglobin 10.5 g/dL (13.0-18.0); Mean Corp Hgb Conc. 32.8 g/dL (33.0-37.0); Mean Corpuscular Hgb 32.6 pg (27.0-31.0); Mean Corpuscular Volume 99.4 fL (80.0-94.0); Mean Platelet Volume 9.2 fL (7.4-10.4); Nucleated Red Blood Cells % 0 % (-); Platelet Count 243 10^3/uL (130-400); Red Blood Cell Count 3.22 10^6/uL (4.70-6.10); Red Cell Dist. Width 16.6 % (11.5-14.5); Reticulocyte Count 8.2 % (0.4-2.8)
[2024-12-31 10:35] LABS: Albumin 3.7 g/dl (3.5-5.0); Alkaline Phosphatase 89 U/L (38-126); Blood Urea Nitrogen 29 mg/dl (9-20); Total Protein 5.5 g/dl (6.3-8.2)
[2024-12-31 10:36] LABS: ALT (SGPT) 24 U/L (0-50); AST (SGOT) 16 U/L (17-59); Direct Bilirubin 0.2 mg/dl (0.0-0.4); LDH 195 U/L (120-246); Total Bilirubin 1.6 mg/dl (0.2-1.3)
[2025-01-01 20:32] LABS: Haptoglobin 54 mg/dL (30-200)
== END ==
LOC: REG 09:36
PROVIDERS: ATTENDING PHYSICIAN Internal Medicine Hematology & Oncology; FAMILY PHYSICIAN Internal Medicine
DX: D59.9 Acquired hemolytic anemia, unspecified (principal); L12.9 Pemphigoid, unspecified
CPT/HCPCS: 36415; 80076; 82565; 83010; 83615; 84520; 85025; 85045

== ENCOUNTER → 2025-01-07 09:27 | Outpatient (REF) | payer MEDICARE, BC, SELFPAY ==
[2025-01-07 10:45] LABS: % Basophils 0.3 % (0-2); % Immature Granulocytes 1.2 % (0-0.5); % Lymphocytes 3.8 % (20.5-51.1); % Monocytes 2.1 % (1.7-9.3); % Neutrophils 92.6 % (42.2-75.2); Absolute Immature Granulocytes 0.1 10^3/uL (0-0.05); Absolute Lymphocytes 0.3 10^3/uL (1.2-3.4); Absolute Monocytes 0.2 10^3/uL (0.1-0.6); Absolute Neutrophils 7.1 10^3/uL (1.4-6.5); Hematocrit 31.3 % (39.0-52.0); Hemoglobin 10.3 g/dL (13.0-18.0); Mean Corp Hgb Conc. 32.9 g/dL (33.0-37.0); Mean Corpuscular Volume 100.3 fL (80.0-94.0); Mean Platelet Volume 9.8 fL (7.4-10.4); Nucleated Red Blood Cells % 0 % (-); Platelet Count 236 10^3/uL (130-400); Red Blood Cell Count 3.12 10^6/uL (4.70-6.10); Red Cell Dist. Width 15.6 % (11.5-14.5); White Blood Cell Count 7.7 10^3/uL (4.8-10.8)
[2025-01-07 12:02] LABS: ALT (SGPT) 27 U/L (0-50); AST (SGOT) 21 U/L (17-59); Albumin 4.4 g/dl (3.5-5.0); Alkaline Phosphatase 87 U/L (38-126); Blood Urea Nitrogen 32 mg/dl (9-20); Direct Bilirubin 0.4 mg/dl (0.0-0.4); Total Bilirubin 2.3 mg/dl (0.2-1.3); Total Protein 5.9 g/dl (6.3-8.2)
[2025-01-07 12:04] LABS: LDH 249 U/L (120-246)
[2025-01-09 21:36] LABS: Haptoglobin <10 mg/dL (30-200)
== END ==
LOC: REG 09:27
PROVIDERS: ATTENDING PHYSICIAN Internal Medicine Hematology & Oncology; FAMILY PHYSICIAN Internal Medicine
DX: D59.9 Acquired hemolytic anemia, unspecified (principal); L12.9 Pemphigoid, unspecified
CPT/HCPCS: 36415; 80076; 82565; 83010; 83615; 84520; 85025; 85045

== ENCOUNTER → 2025-01-14 09:28 | Outpatient (REF) | payer MEDICARE, BC, SELFPAY ==
[2025-01-14 11:33] LABS: % Basophils 0.3 % (0-2); % Eosinophils 0.1 % (0-6); % Immature Granulocytes 1.1 % (0-0.5); % Neutrophils 92.5 % (42.2-75.2); Absolute Immature Granulocytes 0.1 10^3/uL (0-0.05); Absolute Lymphocytes 0.2 10^3/uL (1.2-3.4); Absolute Monocytes 0.2 10^3/uL (0.1-0.6); Absolute Neutrophils 6.4 10^3/uL (1.4-6.5); Hematocrit 34.7 % (39.0-52.0); Hemoglobin 11.2 g/dL (13.0-18.0); Mean Corp Hgb Conc. 32.3 g/dL (33.0-37.0); Mean Corpuscular Hgb 32.8 pg (27.0-31.0); Mean Corpuscular Volume 101.8 fL (80.0-94.0); Mean Platelet Volume 10.1 fL (7.4-10.4); Nucleated Red Blood Cells % 0 % (-); Platelet Count 283 10^3/uL (130-400); Red Blood Cell Count 3.41 10^6/uL (4.70-6.10)
[2025-01-14 11:37] LABS: ALT (SGPT) 25 U/L (0-50); AST (SGOT) 19 U/L (17-59); Albumin 4.4 g/dl (3.5-5.0); Alkaline Phosphatase 90 U/L (38-126); Blood Urea Nitrogen 32 mg/dl (9-20); Calcium 8.9 mg/dl (8.4-10.2); Carbon Dioxide 26 mmol/L (22-30); Chloride 104 mmol/L (98-107); Direct Bilirubin 0.2 mg/dl (0.0-0.4); Glucose 113 mg/dl (70-99); Potassium 4.3 mmol/L (3.5-5.1); Sodium 136 mmol/L (135-145); Total Bilirubin 1.8 mg/dl (0.2-1.3); Total Protein 6.1 g/dl (6.3-8.2); eGFR > 60.00
[2025-01-14 11:51] LABS: LDH 215 U/L (120-246)
[2025-01-15 23:07] LABS: Haptoglobin 63 mg/dL (30-200)
== END ==
LOC: REG 09:28
PROVIDERS: ATTENDING PHYSICIAN Specialist; FAMILY PHYSICIAN Internal Medicine; OTHER PHYSICIAN Internal Medicine Hematology & Oncology
DX: D59.9 Acquired hemolytic anemia, unspecified (principal); L12.9 Pemphigoid, unspecified; I10 Essential (primary) hypertension; E03.9 Hypothyroidism, unspecified
CPT/HCPCS: 36415; 80053; 82248; 83010; 83615; 85025

== ENCOUNTER → 2025-01-21 09:45 | Outpatient (REF) | payer MEDICARE, BC, SELFPAY ==
[2025-01-21 11:40] LABS: ALT (SGPT) 30 U/L (0-50); AST (SGOT) 23 U/L (17-59); Albumin 4.2 g/dl (3.5-5.0); Alkaline Phosphatase 74 U/L (38-126); Blood Urea Nitrogen 33 mg/dl (9-20); Direct Bilirubin 0.2 mg/dl (0.0-0.4); LDH 199 U/L (120-246); Total Bilirubin 1.9 mg/dl (0.2-1.3); Total Protein 6.1 g/dl (6.3-8.2)
[2025-01-21 12:10] LABS: % Basophils 0.3 % (0-2); % Immature Granulocytes 1.8 % (0-0.5); % Lymphocytes 2.3 % (20.5-51.1); % Monocytes 2.2 % (1.7-9.3); % Neutrophils 93.4 % (42.2-75.2); Absolute Immature Granulocytes 0.2 10^3/uL (0-0.05); Absolute Lymphocytes 0.2 10^3/uL (1.2-3.4); Absolute Monocytes 0.2 10^3/uL (0.1-0.6); Absolute Neutrophils 9.5 10^3/uL (1.4-6.5); Hemoglobin 11.3 g/dL (13.0-18.0); Mean Corp Hgb Conc. 32.3 g/dL (33.0-37.0); Mean Corpuscular Hgb 32.8 pg (27.0-31.0); Mean Corpuscular Volume 101.4 fL (80.0-94.0); Mean Platelet Volume 10.1 fL (7.4-10.4); Nucleated Red Blood Cells % 0 % (-); Platelet Count 274 10^3/uL (130-400); Red Blood Cell Count 3.45 10^6/uL (4.70-6.10); Red Cell Dist. Width 14.5 % (11.5-14.5); Reticulocyte Count 7.7 % (0.4-2.8); White Blood Cell Count 10.2 10^3/uL (4.8-10.8)
[2025-01-24 01:15] LABS: Haptoglobin 78 mg/dL (30-200)
== END ==
LOC: REG 09:45
PROVIDERS: ATTENDING PHYSICIAN Internal Medicine Hematology & Oncology; FAMILY PHYSICIAN Internal Medicine
DX: D59.9 Acquired hemolytic anemia, unspecified (principal); L12.9 Pemphigoid, unspecified
CPT/HCPCS: 36415; 80076; 82565; 83010; 83615; 84520; 85025; 85045

== ENCOUNTER → 2025-01-28 09:31 | Outpatient (REF) | payer MEDICARE, BC, SELFPAY ==
[2025-01-28 10:11] LABS: % Basophils 0.3 % (0-2); % Eosinophils 0.2 % (0-6); % Immature Granulocytes 1.9 % (0-0.5); % Lymphocytes 2.1 % (20.5-51.1); % Monocytes 2.5 % (1.7-9.3); Absolute Immature Granulocytes 0.2 10^3/uL (0-0.05); Absolute Lymphocytes 0.2 10^3/uL (1.2-3.4); Absolute Monocytes 0.3 10^3/uL (0.1-0.6); Absolute Neutrophils 9.8 10^3/uL (1.4-6.5); Hematocrit 31.8 % (39.0-52.0); Hemoglobin 10.5 g/dL (13.0-18.0); Mean Platelet Volume 9.7 fL (7.4-10.4); Nucleated Red Blood Cells % 0 % (-); Platelet Count 257 10^3/uL (130-400); Red Blood Cell Count 3.18 10^6/uL (4.70-6.10); Red Cell Dist. Width 14.4 % (11.5-14.5); Reticulocyte Count 6.9 % (0.4-2.8); White Blood Cell Count 10.5 10^3/uL (4.8-10.8)
[2025-01-28 10:50] LABS: Blood Urea Nitrogen 30 mg/dl (9-20); Carbon Dioxide 26 mmol/L (22-30); Chloride 104 mmol/L (98-107); Direct Bilirubin 0.1 mg/dl (0.0-0.4); Glucose 113 mg/dl (70-99); Potassium 4.3 mmol/L (3.5-5.1); Sodium 136 mmol/L (135-145); Total Bilirubin 1.6 mg/dl (0.2-1.3); eGFR > 60.00
[2025-01-31 02:25] LABS: Haptoglobin 75 mg/dL (30-200)
== END ==
LOC: REG 09:31
PROVIDERS: ATTENDING PHYSICIAN Internal Medicine Hematology & Oncology; FAMILY PHYSICIAN Internal Medicine
DX: D59.9 Acquired hemolytic anemia, unspecified (principal); L12.9 Pemphigoid, unspecified
CPT/HCPCS: 36415; 80048; 82247; 82248; 83010; 85025; 85045

== ENCOUNTER → 2025-02-04 09:47 | Outpatient (REF) | payer MEDICARE, BC, SELFPAY ==
[2025-02-04 10:54] LABS: % Basophils 0.1 % (0-2); % Eosinophils 0.1 % (0-6); % Immature Granulocytes 0.7 % (0-0.5); % Lymphocytes 1.3 % (20.5-51.1); % Monocytes 3.4 % (1.7-9.3); % Neutrophils 94.4 % (42.2-75.2); Absolute Immature Granulocytes 0.1 10^3/uL (0-0.05); Absolute Lymphocytes 0.1 10^3/uL (1.2-3.4); Absolute Monocytes 0.3 10^3/uL (0.1-0.6); Absolute Neutrophils 9.2 10^3/uL (1.4-6.5); Hematocrit 29.7 % (39.0-52.0); Hemoglobin 9.6 g/dL (13.0-18.0); Mean Corp Hgb Conc. 32.3 g/dL (33.0-37.0); Nucleated Red Blood Cells % 0 % (-); Platelet Count 239 10^3/uL (130-400); Red Cell Dist. Width 14.2 % (11.5-14.5); Reticulocyte Count 7.1 % (0.4-2.8); White Blood Cell Count 9.8 10^3/uL (4.8-10.8)
[2025-02-04 12:06] LABS: Blood Urea Nitrogen 29 mg/dl (9-20); Calcium 8.5 mg/dl (8.4-10.2); Carbon Dioxide 23 mmol/L (22-30); Chloride 102 mmol/L (98-107); Direct Bilirubin 0.5 mg/dl (0.0-0.4); Glucose 129 mg/dl (70-99); Potassium 4.4 mmol/L (3.5-5.1); Sodium 131 mmol/L (135-145); Total Bilirubin 2.7 mg/dl (0.2-1.3); eGFR > 60.00
[2025-02-05 21:51] LABS: Haptoglobin 170 mg/dL (30-200)
== END ==
LOC: REG 09:47
PROVIDERS: ATTENDING PHYSICIAN Internal Medicine Hematology & Oncology; FAMILY PHYSICIAN Internal Medicine; REFERRING PHYSICIAN Specialist
DX: D59.9 Acquired hemolytic anemia, unspecified (principal); L12.9 Pemphigoid, unspecified
CPT/HCPCS: 36415; 80048; 82247; 82248; 83010; 85025; 85045

== ENCOUNTER → 2025-02-11 09:36 | Outpatient (REF) | payer MEDICARE, BC, SELFPAY ==
[2025-02-11 10:33] LABS: % Basophils 0.3 % (0-2); % Eosinophils 0.1 % (0-6); % Immature Granulocytes 4.5 % (0-0.5); % Lymphocytes 2.4 % (20.5-51.1); % Monocytes 2.4 % (1.7-9.3); % Neutrophils 90.3 % (42.2-75.2); Absolute Immature Granulocytes 0.5 10^3/uL (0-0.05); Absolute Lymphocytes 0.3 10^3/uL (1.2-3.4); Absolute Monocytes 0.3 10^3/uL (0.1-0.6); Absolute Neutrophils 10.4 10^3/uL (1.4-6.5); Hematocrit 32.9 % (39.0-52.0); Hemoglobin 10.8 g/dL (13.0-18.0); Mean Corp Hgb Conc. 32.8 g/dL (33.0-37.0); Mean Corpuscular Volume 97.6 fL (80.0-94.0); Mean Platelet Volume 9.3 fL (7.4-10.4); Nucleated Red Blood Cells % 0.2 % (-); Platelet Count 393 10^3/uL (130-400); Red Blood Cell Count 3.37 10^6/uL (4.70-6.10); Red Cell Dist. Width 15.2 % (11.5-14.5); Reticulocyte Count 9.5 % (0.4-2.8); White Blood Cell Count 11.6 10^3/uL (4.8-10.8)
[2025-02-11 13:54] LABS: Blood Urea Nitrogen 33 mg/dl (9-20); Calcium 8.9 mg/dl (8.4-10.2); Carbon Dioxide 24 mmol/L (22-30); Chloride 103 mmol/L (98-107); Direct Bilirubin 0.2 mg/dl (0.0-0.4); Glucose 101 mg/dl (70-99); Potassium 4.5 mmol/L (3.5-5.1); Sodium 135 mmol/L (135-145); Total Bilirubin 1.5 mg/dl (0.2-1.3); eGFR > 60.00
[2025-02-13 02:45] LABS: Haptoglobin 101 mg/dL (30-200)
== END ==
LOC: REG 09:36
PROVIDERS: ATTENDING PHYSICIAN Internal Medicine Hematology & Oncology; FAMILY PHYSICIAN Internal Medicine; OTHER PHYSICIAN Specialist
DX: D59.9 Acquired hemolytic anemia, unspecified (principal); L12.9 Pemphigoid, unspecified
CPT/HCPCS: 36415; 80048; 82247; 82248; 83010; 85025; 85045

== ENCOUNTER → 2025-02-18 09:29 | Outpatient (REF) | payer MEDICARE, BC, SELFPAY ==
[2025-02-18 10:15] LABS: % Basophils 0.2 % (0-2); % Eosinophils 0.1 % (0-6); % Immature Granulocytes 3.2 % (0-0.5); % Lymphocytes 1.7 % (20.5-51.1); % Monocytes 2.7 % (1.7-9.3); % Neutrophils 92.1 % (42.2-75.2); Absolute Immature Granulocytes 0.4 10^3/uL (0-0.05); Absolute Lymphocytes 0.2 10^3/uL (1.2-3.4); Absolute Monocytes 0.3 10^3/uL (0.1-0.6); Absolute Neutrophils 10.1 10^3/uL (1.4-6.5); Hematocrit 32.5 % (39.0-52.0); Hemoglobin 10.8 g/dL (13.0-18.0); Mean Corp Hgb Conc. 33.2 g/dL (33.0-37.0); Mean Corpuscular Hgb 32.2 pg (27.0-31.0); Mean Platelet Volume 9.5 fL (7.4-10.4); Nucleated Red Blood Cells % 0.2 % (-); Platelet Count 299 10^3/uL (130-400); Red Blood Cell Count 3.35 10^6/uL (4.70-6.10); Red Cell Dist. Width 15.7 % (11.5-14.5); Reticulocyte Count 8.6 % (0.4-2.8); White Blood Cell Count 10.9 10^3/uL (4.8-10.8)
[2025-02-18 10:56] LABS: Blood Urea Nitrogen 32 mg/dl (9-20); Carbon Dioxide 25 mmol/L (22-30); Chloride 103 mmol/L (98-107); Direct Bilirubin 0.2 mg/dl (0.0-0.4); Glucose 108 mg/dl (70-99); Potassium 4.8 mmol/L (3.5-5.1); Sodium 134 mmol/L (135-145); Total Bilirubin 1.4 mg/dl (0.2-1.3); eGFR > 60.00
[2025-02-20 13:30] LABS: Haptoglobin 81 mg/dL (30-200)
== END ==
LOC: REG 09:29
PROVIDERS: ATTENDING PHYSICIAN Internal Medicine Hematology & Oncology; FAMILY PHYSICIAN Internal Medicine; REFERRING PHYSICIAN Specialist
DX: D59.9 Acquired hemolytic anemia, unspecified (principal); L12.9 Pemphigoid, unspecified
CPT/HCPCS: 36415; 80048; 82247; 82248; 83010; 85025; 85045

== ENCOUNTER → 2025-02-25 09:40 | Outpatient (REF) | payer MEDICARE, BC, SELFPAY ==
[2025-02-25 10:17] LABS: % Basophils 0.2 % (0-2); % Immature Granulocytes 1.2 % (0-0.5); % Lymphocytes 1.5 % (20.5-51.1); % Monocytes 2.3 % (1.7-9.3); % Neutrophils 94.8 % (42.2-75.2); Absolute Immature Granulocytes 0.1 10^3/uL (0-0.05); Absolute Lymphocytes 0.2 10^3/uL (1.2-3.4); Absolute Monocytes 0.2 10^3/uL (0.1-0.6); Absolute Neutrophils 9.7 10^3/uL (1.4-6.5); Hematocrit 31.5 % (39.0-52.0); Hemoglobin 10.4 g/dL (13.0-18.0); Mean Corpuscular Hgb 32.3 pg (27.0-31.0); Mean Corpuscular Volume 97.8 fL (80.0-94.0); Mean Platelet Volume 9.8 fL (7.4-10.4); Nucleated Red Blood Cells % 0 % (-); Platelet Count 232 10^3/uL (130-400); Red Blood Cell Count 3.22 10^6/uL (4.70-6.10); Red Cell Dist. Width 15.5 % (11.5-14.5); Reticulocyte Count 7.4 % (0.4-2.8); White Blood Cell Count 10.2 10^3/uL (4.8-10.8)
[2025-02-25 10:51] LABS: Blood Urea Nitrogen 32 mg/dl (9-20); Calcium 8.7 mg/dl (8.4-10.2); Carbon Dioxide 26 mmol/L (22-30); Chloride 105 mmol/L (98-107); Direct Bilirubin 0.2 mg/dl (0.0-0.4); Glucose 120 mg/dl (70-99); Potassium 4.5 mmol/L (3.5-5.1); Sodium 134 mmol/L (135-145); Total Bilirubin 1.7 mg/dl (0.2-1.3); eGFR > 60.00
[2025-02-27 03:48] LABS: Haptoglobin 128 mg/dL (30-200)
== END ==
LOC: REG 09:40
PROVIDERS: ATTENDING PHYSICIAN Internal Medicine Hematology & Oncology; FAMILY PHYSICIAN Internal Medicine
DX: D59.9 Acquired hemolytic anemia, unspecified (principal); L12.9 Pemphigoid, unspecified
CPT/HCPCS: 36415; 80048; 82247; 82248; 83010; 85025; 85045

== ENCOUNTER → 2025-03-04 09:19 | Outpatient (REF) | payer MEDICARE, BC, SELFPAY ==
[2025-03-04 11:01] LABS: Hematocrit 33.2 % (39.0-52.0); Hemoglobin 10.8 g/dL (13.0-18.0); Mean Corp Hgb Conc. 32.5 g/dL (33.0-37.0); Mean Corpuscular Volume 99.1 fL (80.0-94.0); Nucleated Red Blood Cells % 0 % (-); Platelet Count 279 10^3/uL (130-400); Red Cell Dist. Width 15.6 % (11.5-14.5); Reticulocyte Count 7.9 % (0.4-2.8)
[2025-03-04 11:11] LABS: Blood Urea Nitrogen 29 mg/dl (9-20); Calcium 9.0 mg/dl (8.4-10.2); Carbon Dioxide 24 mmol/L (22-30); Chloride 105 mmol/L (98-107); Glucose 110 mg/dl (70-99); Potassium 4.5 mmol/L (3.5-5.1); Sodium 134 mmol/L (135-145); eGFR > 60.00
== END ==
LOC: REG 09:19
PROVIDERS: ATTENDING PHYSICIAN Internal Medicine Hematology & Oncology; FAMILY PHYSICIAN Internal Medicine; REFERRING PHYSICIAN Specialist
DX: D59.9 Acquired hemolytic anemia, unspecified (principal); L12.9 Pemphigoid, unspecified
CPT/HCPCS: 36415; 80048; 82247; 82248; 83010; 85025; 85045

== ENCOUNTER → 2025-03-11 09:44 | Outpatient (REF) | payer MEDICARE, BC, SELFPAY ==
[2025-03-11 10:36] LABS: Hematocrit 32.7 % (39.0-52.0); Hemoglobin 10.7 g/dL (13.0-18.0); Mean Corp Hgb Conc. 32.7 g/dL (33.0-37.0); Mean Corpuscular Volume 99.1 fL (80.0-94.0); Nucleated Red Blood Cells % 0.2 % (-); Platelet Count 279 10^3/uL (130-400); Red Cell Dist. Width 15.5 % (11.5-14.5); Reticulocyte Count 8.6 % (0.4-2.8)
[2025-03-11 11:07] LABS: Blood Urea Nitrogen 32 mg/dl (9-20); Calcium 8.9 mg/dl (8.4-10.2); Carbon Dioxide 21 mmol/L (22-30); Chloride 104 mmol/L (98-107); Glucose 112 mg/dl (70-99); Potassium 4.7 mmol/L (3.5-5.1); Sodium 132 mmol/L (135-145); eGFR > 60.00
== END ==
LOC: REG 09:44
PROVIDERS: ATTENDING PHYSICIAN Internal Medicine Hematology & Oncology; FAMILY PHYSICIAN Internal Medicine
DX: D59.9 Acquired hemolytic anemia, unspecified (principal); L12.9 Pemphigoid, unspecified
CPT/HCPCS: 36415; 80048; 82247; 82248; 83010; 85025; 85045

== ENCOUNTER → 2025-03-18 09:22 | Outpatient (REF) | payer MEDICARE, BC, SELFPAY ==
[2025-03-18 10:57] LABS: Hematocrit 32.6 % (39.0-52.0); Hemoglobin 10.6 g/dL (13.0-18.0); Mean Corp Hgb Conc. 32.5 g/dL (33.0-37.0); Mean Corpuscular Volume 98.8 fL (80.0-94.0); Nucleated Red Blood Cells % 0 % (-); Platelet Count 255 10^3/uL (130-400); Red Cell Dist. Width 15.0 % (11.5-14.5); Reticulocyte Count 7.8 % (0.4-2.8)
[2025-03-18 11:17] LABS: Blood Urea Nitrogen 30 mg/dl (9-20); Calcium 8.9 mg/dl (8.4-10.2); Carbon Dioxide 22 mmol/L (22-30); Chloride 105 mmol/L (98-107); Glucose 111 mg/dl (70-99); Potassium 4.3 mmol/L (3.5-5.1); Sodium 133 mmol/L (135-145); eGFR > 60.00
== END ==
LOC: REG 09:22
PROVIDERS: ATTENDING PHYSICIAN Internal Medicine Hematology & Oncology; FAMILY PHYSICIAN Internal Medicine; REFERRING PHYSICIAN Specialist
DX: D59.9 Acquired hemolytic anemia, unspecified (principal); L12.9 Pemphigoid, unspecified
CPT/HCPCS: 36415; 80048; 82247; 82248; 83010; 85025; 85045

== ENCOUNTER → 2025-03-25 09:13 | Outpatient (REF) | payer MEDICARE, BC, SELFPAY ==
[2025-03-25 09:51] LABS: Hematocrit 33.7 % (39.0-52.0); Hemoglobin 10.8 g/dL (13.0-18.0); Mean Corp Hgb Conc. 32.0 g/dL (33.0-37.0); Mean Corpuscular Volume 99.4 fL (80.0-94.0); Nucleated Red Blood Cells % 0 % (-); Platelet Count 244 10^3/uL (130-400); Red Cell Dist. Width 14.8 % (11.5-14.5); Reticulocyte Count 8.3 % (0.4-2.8)
[2025-03-25 12:03] LABS: Blood Urea Nitrogen 31 mg/dl (9-20); Calcium 8.7 mg/dl (8.4-10.2); Carbon Dioxide 27 mmol/L (22-30); Chloride 101 mmol/L (98-107); Glucose 100 mg/dl (70-99); Potassium 4.4 mmol/L (3.5-5.1); Sodium 134 mmol/L (135-145); eGFR > 60.00
== END ==
LOC: REG 09:13
PROVIDERS: ATTENDING PHYSICIAN Internal Medicine Hematology & Oncology; FAMILY PHYSICIAN Internal Medicine
DX: D59.9 Acquired hemolytic anemia, unspecified (principal); L12.9 Pemphigoid, unspecified
CPT/HCPCS: 36415; 80048; 82247; 82248; 83010; 85025; 85045

== ENCOUNTER → 2025-04-01 09:02 | Outpatient (REF) | payer MEDICARE, BC, SELFPAY ==
[2025-04-01 09:32] LABS: Hematocrit 31.8 % (39.0-52.0); Hemoglobin 10.5 g/dL (13.0-18.0); Mean Corp Hgb Conc. 33.0 g/dL (33.0-37.0); Mean Corpuscular Volume 97.8 fL (80.0-94.0); Nucleated Red Blood Cells % 0 % (-); Platelet Count 243 10^3/uL (130-400); Red Cell Dist. Width 14.9 % (11.5-14.5); Reticulocyte Count 8.8 % (0.4-2.8)
[2025-04-01 10:03] LABS: Blood Urea Nitrogen 31 mg/dl (9-20); Calcium 9.0 mg/dl (8.4-10.2); Carbon Dioxide 25 mmol/L (22-30); Chloride 104 mmol/L (98-107); Glucose 109 mg/dl (70-99); Potassium 4.5 mmol/L (3.5-5.1); Sodium 133 mmol/L (135-145); eGFR > 60.00
== END ==
LOC: REG 09:02
PROVIDERS: ATTENDING PHYSICIAN Internal Medicine Hematology & Oncology; FAMILY PHYSICIAN Internal Medicine
DX: D59.9 Acquired hemolytic anemia, unspecified (principal); L12.9 Pemphigoid, unspecified
CPT/HCPCS: 36415; 80048; 82247; 82248; 83010; 85025; 85045

== ENCOUNTER → 2025-04-08 09:13 | Outpatient (REF) | payer MEDICARE, BC, SELFPAY ==
[2025-04-08 10:28] LABS: Hematocrit 33.3 % (39.0-52.0); Hemoglobin 10.7 g/dL (13.0-18.0); Mean Corp Hgb Conc. 32.1 g/dL (33.0-37.0); Mean Corpuscular Volume 99.7 fL (80.0-94.0); Nucleated Red Blood Cells % 0 % (-); Platelet Count 273 10^3/uL (130-400); Red Cell Dist. Width 14.6 % (11.5-14.5); Reticulocyte Count 7.4 % (0.4-2.8)
[2025-04-08 10:47] LABS: Blood Urea Nitrogen 33 mg/dl (9-20); Calcium 9.1 mg/dl (8.4-10.2); Carbon Dioxide 24 mmol/L (22-30); Chloride 102 mmol/L (98-107); Glucose 103 mg/dl (70-99); Potassium 4.6 mmol/L (3.5-5.1); Sodium 133 mmol/L (135-145); eGFR > 60.00
== END ==
LOC: REG 09:13
PROVIDERS: ATTENDING PHYSICIAN Internal Medicine Hematology & Oncology; FAMILY PHYSICIAN Internal Medicine; OTHER PHYSICIAN Specialist
DX: D59.9 Acquired hemolytic anemia, unspecified (principal); L12.9 Pemphigoid, unspecified
CPT/HCPCS: 36415; 80048; 82247; 82248; 83010; 85025; 85045

== ENCOUNTER → 2025-04-15 09:35 | Outpatient (REF) | payer MEDICARE, BC, SELFPAY ==
[2025-04-15 10:50] LABS: Hematocrit 34.9 % (39.0-52.0); Hemoglobin 11.1 g/dL (13.0-18.0); Mean Corp Hgb Conc. 31.8 g/dL (33.0-37.0); Mean Corpuscular Volume 100.0 fL (80.0-94.0); Nucleated Red Blood Cells % 0 % (-); Platelet Count 247 10^3/uL (130-400); Red Cell Dist. Width 14.6 % (11.5-14.5); Reticulocyte Count 7.6 % (0.4-2.8)
[2025-04-15 11:15] LABS: Blood Urea Nitrogen 32 mg/dl (9-20); Calcium 8.5 mg/dl (8.4-10.2); Carbon Dioxide 25 mmol/L (22-30); Chloride 103 mmol/L (98-107); Glucose 103 mg/dl (70-99); Potassium 4.6 mmol/L (3.5-5.1); Sodium 133 mmol/L (135-145); eGFR > 60.00
== END ==
LOC: REG 09:35
PROVIDERS: ATTENDING PHYSICIAN Internal Medicine Hematology & Oncology; FAMILY PHYSICIAN Internal Medicine
DX: D59.9 Acquired hemolytic anemia, unspecified (principal); L12.9 Pemphigoid, unspecified
CPT/HCPCS: 36415; 80048; 82247; 82248; 83010; 85025; 85045

== ENCOUNTER → 2025-04-22 09:10 | Outpatient (REF) | payer MEDICARE, BC, SELFPAY ==
[2025-04-22 09:37] LABS: Hematocrit 31.4 % (39.0-52.0); Hemoglobin 10.2 g/dL (13.0-18.0); Mean Corp Hgb Conc. 32.5 g/dL (33.0-37.0); Mean Corpuscular Volume 97.2 fL (80.0-94.0); Nucleated Red Blood Cells % 0 % (-); Platelet Count 228 10^3/uL (130-400); Red Cell Dist. Width 13.9 % (11.5-14.5); Reticulocyte Count 6.0 % (0.4-2.8)
[2025-04-22 11:13] LABS: Blood Urea Nitrogen 29 mg/dl (9-20); Calcium 8.9 mg/dl (8.4-10.2); Carbon Dioxide 25 mmol/L (22-30); Chloride 104 mmol/L (98-107); Glucose 106 mg/dl (70-99); Potassium 4.5 mmol/L (3.5-5.1); Sodium 131 mmol/L (135-145); eGFR > 60.00
== END ==
LOC: REG 09:10
PROVIDERS: ATTENDING PHYSICIAN Internal Medicine Hematology & Oncology; FAMILY PHYSICIAN Internal Medicine; REFERRING PHYSICIAN Specialist
DX: D59.9 Acquired hemolytic anemia, unspecified (principal); L12.9 Pemphigoid, unspecified
CPT/HCPCS: 36415; 80048; 82247; 82248; 83010; 85025; 85045

== ENCOUNTER → 2025-04-29 09:22 | Outpatient (REF) | payer MEDICARE, BC, SELFPAY ==
[2025-04-29 10:29] LABS: Hematocrit 32.6 % (39.0-52.0); Hemoglobin 10.4 g/dL (13.0-18.0); Mean Corp Hgb Conc. 31.9 g/dL (33.0-37.0); Mean Corpuscular Volume 98.5 fL (80.0-94.0); Nucleated Red Blood Cells % 0 % (-); Platelet Count 296 10^3/uL (130-400); Red Cell Dist. Width 15.1 % (11.5-14.5); Reticulocyte Count 9.1 % (0.4-2.8)
[2025-04-29 11:31] LABS: Blood Urea Nitrogen 29 mg/dl (9-20); Calcium 8.7 mg/dl (8.4-10.2); Carbon Dioxide 24 mmol/L (22-30); Chloride 104 mmol/L (98-107); Glucose 107 mg/dl (70-99); Potassium 4.6 mmol/L (3.5-5.1); Sodium 132 mmol/L (135-145); eGFR > 60.00
== END ==
LOC: REG 09:22
PROVIDERS: ATTENDING PHYSICIAN Internal Medicine Hematology & Oncology; FAMILY PHYSICIAN Internal Medicine
DX: D59.9 Acquired hemolytic anemia, unspecified (principal); L12.9 Pemphigoid, unspecified
CPT/HCPCS: 36415; 80048; 82247; 82248; 83010; 85025; 85045

== ENCOUNTER → 2025-05-06 09:22 | Outpatient (REF) | payer MEDICARE, BC, SELFPAY ==
[2025-05-06 10:52] LABS: Hematocrit 32.7 % (39.0-52.0); Hemoglobin 10.5 g/dL (13.0-18.0); Mean Corp Hgb Conc. 32.1 g/dL (33.0-37.0); Mean Corpuscular Volume 100.0 fL (80.0-94.0); Nucleated Red Blood Cells % 0 % (-); Platelet Count 307 10^3/uL (130-400); Red Cell Dist. Width 15.1 % (11.5-14.5); Reticulocyte Count 8.4 % (0.4-2.8)
[2025-05-06 11:26] LABS: Blood Urea Nitrogen 28 mg/dl (9-20); Calcium 8.7 mg/dl (8.4-10.2); Carbon Dioxide 26 mmol/L (22-30); Chloride 102 mmol/L (98-107); Glucose 106 mg/dl (70-99); Potassium 4.7 mmol/L (3.5-5.1); Sodium 133 mmol/L (135-145); eGFR > 60.00
== END ==
LOC: REG 09:22
PROVIDERS: ATTENDING PHYSICIAN Internal Medicine Hematology & Oncology; FAMILY PHYSICIAN Internal Medicine
DX: D59.9 Acquired hemolytic anemia, unspecified (principal); L12.9 Pemphigoid, unspecified
CPT/HCPCS: 36415; 80048; 82247; 82248; 83010; 85025; 85045

== ENCOUNTER → 2025-05-13 09:32 | Outpatient (REF) | payer MEDICARE, BC, SELFPAY ==
[2025-05-13 10:39] LABS: Hematocrit 34.3 % (39.0-52.0); Hemoglobin 11.3 g/dL (13.0-18.0); Mean Corp Hgb Conc. 32.9 g/dL (33.0-37.0); Mean Corpuscular Volume 99.4 fL (80.0-94.0); Nucleated Red Blood Cells % 0 % (-); Platelet Count 253 10^3/uL (130-400); Red Cell Dist. Width 14.9 % (11.5-14.5); Reticulocyte Count 6.9 % (0.4-2.8)
[2025-05-13 10:53] LABS: Blood Urea Nitrogen 32 mg/dl (9-20); Calcium 9.0 mg/dl (8.4-10.2); Carbon Dioxide 26 mmol/L (22-30); Chloride 102 mmol/L (98-107); Glucose 100 mg/dl (70-99); Potassium 4.6 mmol/L (3.5-5.1); Sodium 134 mmol/L (135-145); eGFR > 60.00
== END ==
LOC: REG 09:32
PROVIDERS: ATTENDING PHYSICIAN Internal Medicine Hematology & Oncology; FAMILY PHYSICIAN Internal Medicine
DX: D59.9 Acquired hemolytic anemia, unspecified (principal); L12.9 Pemphigoid, unspecified
CPT/HCPCS: 36415; 80048; 82247; 82248; 83010; 85025; 85045

== ENCOUNTER → 2025-05-20 09:39 | Outpatient (REF) | payer MEDICARE, BC, SELFPAY ==
[2025-05-20 10:18] LABS: Hematocrit 30.8 % (39.0-52.0); Hemoglobin 10.0 g/dL (13.0-18.0); Mean Corp Hgb Conc. 32.5 g/dL (33.0-37.0); Mean Corpuscular Volume 96.0 fL (80.0-94.0); Nucleated Red Blood Cells % 0 % (-); Platelet Count 246 10^3/uL (130-400); Red Cell Dist. Width 14.3 % (11.5-14.5); Reticulocyte Count 6.5 % (0.4-2.8)
[2025-05-20 10:54] LABS: Blood Urea Nitrogen 27 mg/dl (9-20); Calcium 8.6 mg/dl (8.4-10.2); Carbon Dioxide 26 mmol/L (22-30); Chloride 103 mmol/L (98-107); Glucose 112 mg/dl (70-99); Potassium 4.4 mmol/L (3.5-5.1); Sodium 133 mmol/L (135-145); eGFR > 60.00
== END ==
LOC: REG 09:39
PROVIDERS: ATTENDING PHYSICIAN Internal Medicine Hematology & Oncology; FAMILY PHYSICIAN Internal Medicine
DX: D59.9 Acquired hemolytic anemia, unspecified (principal); L12.9 Pemphigoid, unspecified
CPT/HCPCS: 36415; 80048; 82247; 82248; 83010; 85025; 85045

== ENCOUNTER → 2025-05-27 09:32 | Outpatient (REF) | payer MEDICARE, BC, SELFPAY ==
[2025-05-27 10:34] LABS: Hematocrit 31.3 % (39.0-52.0); Hemoglobin 9.8 g/dL (13.0-18.0); Mean Corp Hgb Conc. 31.3 g/dL (33.0-37.0); Mean Corpuscular Volume 97.5 fL (80.0-94.0); Nucleated Red Blood Cells % 0 % (-); Platelet Count 350 10^3/uL (130-400); Red Cell Dist. Width 14.9 % (11.5-14.5); Reticulocyte Count 8.7 % (0.4-2.8)
[2025-05-27 10:59] LABS: Blood Urea Nitrogen 31 mg/dl (9-20); Calcium 8.9 mg/dl (8.4-10.2); Carbon Dioxide 25 mmol/L (22-30); Chloride 102 mmol/L (98-107); Glucose 106 mg/dl (70-99); Potassium 4.7 mmol/L (3.5-5.1); Sodium 133 mmol/L (135-145); eGFR > 60.00
== END ==
LOC: REG 09:32
PROVIDERS: ATTENDING PHYSICIAN Internal Medicine Hematology & Oncology; FAMILY PHYSICIAN Internal Medicine
DX: D59.9 Acquired hemolytic anemia, unspecified (principal); L12.9 Pemphigoid, unspecified
CPT/HCPCS: 36415; 80048; 82247; 82248; 83010; 85025; 85045

== ENCOUNTER → 2025-06-03 09:26 | Outpatient (REF) | payer MEDICARE, BC, SELFPAY ==
[2025-06-03 10:33] LABS: Hematocrit 33.0 % (39.0-52.0); Hemoglobin 10.4 g/dL (13.0-18.0); Mean Corp Hgb Conc. 31.5 g/dL (33.0-37.0); Mean Corpuscular Volume 96.8 fL (80.0-94.0); Nucleated Red Blood Cells % 0 % (-); Platelet Count 337 10^3/uL (130-400); Red Cell Dist. Width 15.2 % (11.5-14.5); Reticulocyte Count 8.2 % (0.4-2.8)
[2025-06-03 10:59] LABS: Blood Urea Nitrogen 30 mg/dl (9-20); Calcium 8.9 mg/dl (8.4-10.2); Carbon Dioxide 25 mmol/L (22-30); Chloride 101 mmol/L (98-107); Glucose 109 mg/dl (70-99); Potassium 4.8 mmol/L (3.5-5.1); Sodium 133 mmol/L (135-145); eGFR > 60.00
== END ==
LOC: REG 09:26
PROVIDERS: ATTENDING PHYSICIAN Internal Medicine Hematology & Oncology; FAMILY PHYSICIAN Internal Medicine; REFERRING PHYSICIAN Specialist
DX: D59.9 Acquired hemolytic anemia, unspecified (principal); L12.9 Pemphigoid, unspecified
CPT/HCPCS: 36415; 80048; 82247; 82248; 83010; 85025; 85045

== ENCOUNTER → 2025-06-10 09:31 | Outpatient (REF) | payer MEDICARE, BC, SELFPAY ==
[2025-06-10 11:03] LABS: Hematocrit 34.6 % (39.0-52.0); Hemoglobin 10.9 g/dL (13.0-18.0); Mean Corp Hgb Conc. 31.5 g/dL (33.0-37.0); Mean Corpuscular Volume 99.7 fL (80.0-94.0); Nucleated Red Blood Cells % 0 % (-); Platelet Count 303 10^3/uL (130-400); Red Cell Dist. Width 15.3 % (11.5-14.5); Reticulocyte Count 7.5 % (0.4-2.8)
[2025-06-10 11:28] LABS: Blood Urea Nitrogen 28 mg/dl (9-20); Calcium 9.0 mg/dl (8.4-10.2); Carbon Dioxide 27 mmol/L (22-30); Chloride 103 mmol/L (98-107); Glucose 109 mg/dl (70-99); Potassium 4.5 mmol/L (3.5-5.1); Sodium 135 mmol/L (135-145); eGFR > 60.00
== END ==
LOC: REG 09:31
PROVIDERS: ATTENDING PHYSICIAN Internal Medicine Hematology & Oncology; FAMILY PHYSICIAN Internal Medicine
DX: D59.9 Acquired hemolytic anemia, unspecified (principal); L12.9 Pemphigoid, unspecified
CPT/HCPCS: 36415; 80048; 82247; 82248; 83010; 85025; 85045

== ENCOUNTER → 2025-06-17 09:27 | Outpatient (REF) | payer MEDICARE, BC, SELFPAY ==
[2025-06-17 10:24] LABS: Hematocrit 34.4 % (39.0-52.0); Hemoglobin 10.9 g/dL (13.0-18.0); Mean Corp Hgb Conc. 31.7 g/dL (33.0-37.0); Mean Corpuscular Volume 99.4 fL (80.0-94.0); Nucleated Red Blood Cells % 0 % (-); Platelet Count 272 10^3/uL (130-400); Red Cell Dist. Width 15.1 % (11.5-14.5); Reticulocyte Count 6.9 % (0.4-2.8)
[2025-06-17 10:58] LABS: Blood Urea Nitrogen 29 mg/dl (9-20); Calcium 8.9 mg/dl (8.4-10.2); Carbon Dioxide 27 mmol/L (22-30); Glucose 102 mg/dl (70-99); Potassium 4.4 mmol/L (3.5-5.1); Sodium 136 mmol/L (135-145); eGFR > 60.00
[2025-06-17 11:02] LABS: Chloride 102 mmol/L (98-107)
== END ==
LOC: REG 09:27
PROVIDERS: ATTENDING PHYSICIAN Internal Medicine Hematology & Oncology; FAMILY PHYSICIAN Internal Medicine
DX: D59.9 Acquired hemolytic anemia, unspecified (principal); L12.9 Pemphigoid, unspecified
CPT/HCPCS: 36415; 80048; 82247; 82248; 83010; 85025; 85045

== ENCOUNTER → 2025-06-24 09:43 | Outpatient (REF) | payer MEDICARE, BC, SELFPAY ==
[2025-06-24 11:08] LABS: Hematocrit 33.5 % (39.0-52.0); Hemoglobin 10.5 g/dL (13.0-18.0); Mean Corp Hgb Conc. 31.3 g/dL (33.0-37.0); Mean Corpuscular Volume 100.0 fL (80.0-94.0); Nucleated Red Blood Cells % 0 % (-); Platelet Count 301 10^3/uL (130-400); Red Cell Dist. Width 15.1 % (11.5-14.5); Reticulocyte Count 7.6 % (0.4-2.8)
[2025-06-24 11:36] LABS: Blood Urea Nitrogen 33 mg/dl (9-20); Calcium 8.9 mg/dl (8.4-10.2); Carbon Dioxide 26 mmol/L (22-30); Chloride 103 mmol/L (98-107); Glucose 102 mg/dl (70-99); Potassium 4.4 mmol/L (3.5-5.1); Sodium 132 mmol/L (135-145); eGFR > 60.00
== END ==
LOC: REG 09:43
PROVIDERS: ATTENDING PHYSICIAN Internal Medicine Hematology & Oncology; FAMILY PHYSICIAN Internal Medicine; OTHER PHYSICIAN Specialist
DX: D59.9 Acquired hemolytic anemia, unspecified (principal); L12.9 Pemphigoid, unspecified
CPT/HCPCS: 36415; 80048; 82247; 82248; 83010; 85025; 85045

== ENCOUNTER → 2025-07-01 09:41 | Outpatient (REF) | payer MEDICARE, BC, SELFPAY ==
[2025-07-01 10:31] LABS: Hematocrit 33.6 % (39.0-52.0); Hemoglobin 10.6 g/dL (13.0-18.0); Mean Corp Hgb Conc. 31.5 g/dL (33.0-37.0); Mean Corpuscular Volume 101.8 fL (80.0-94.0); Nucleated Red Blood Cells % 0 % (-); Platelet Count 305 10^3/uL (130-400); Red Cell Dist. Width 15.0 % (11.5-14.5); Reticulocyte Count 7.8 % (0.4-2.8)
[2025-07-01 11:01] LABS: Blood Urea Nitrogen 31 mg/dl (9-20); Calcium 8.7 mg/dl (8.4-10.2); Carbon Dioxide 26 mmol/L (22-30); Chloride 102 mmol/L (98-107); Glucose 109 mg/dl (70-99); Potassium 4.5 mmol/L (3.5-5.1); Sodium 134 mmol/L (135-145); eGFR > 60.00
== END ==
LOC: REG 09:41
PROVIDERS: ATTENDING PHYSICIAN Internal Medicine Hematology & Oncology; FAMILY PHYSICIAN Internal Medicine; OTHER PHYSICIAN Specialist
DX: D59.9 Acquired hemolytic anemia, unspecified (principal); L12.9 Pemphigoid, unspecified
CPT/HCPCS: 36415; 80048; 82247; 82248; 83010; 85025; 85045

== ENCOUNTER → 2025-07-08 09:28 | Outpatient (REF) | payer MEDICARE, BC, SELFPAY ==
[2025-07-08 11:27] LABS: Hematocrit 34.4 % (39.0-52.0); Hemoglobin 10.5 g/dL (13.0-18.0); Mean Corp Hgb Conc. 30.5 g/dL (33.0-37.0); Mean Corpuscular Volume 100.3 fL (80.0-94.0); Nucleated Red Blood Cells % 0 % (-); Platelet Count 299 10^3/uL (130-400); Red Cell Dist. Width 15.2 % (11.5-14.5); Reticulocyte Count 7.8 % (0.4-2.8)
[2025-07-08 16:52] LABS: Blood Urea Nitrogen 29 mg/dl (9-20); Calcium 8.9 mg/dl (8.4-10.2); Carbon Dioxide 27 mmol/L (22-30); Chloride 101 mmol/L (98-107); Glucose 99 mg/dl (70-99); Potassium 4.7 mmol/L (3.5-5.1); Sodium 132 mmol/L (135-145); eGFR > 60.00
== END ==
LOC: REG 09:28
PROVIDERS: ATTENDING PHYSICIAN Internal Medicine Hematology & Oncology; FAMILY PHYSICIAN Internal Medicine; REFERRING PHYSICIAN Specialist
DX: D59.9 Acquired hemolytic anemia, unspecified (principal); L12.9 Pemphigoid, unspecified
CPT/HCPCS: 36415; 80048; 82247; 82248; 83010; 85025; 85045

== ENCOUNTER → 2025-07-15 09:29 | Outpatient (REF) | payer MEDICARE, BC, SELFPAY ==
[2025-07-15 10:28] LABS: Hematocrit 31.9 % (39.0-52.0); Hemoglobin 10.1 g/dL (13.0-18.0); Mean Corp Hgb Conc. 31.7 g/dL (33.0-37.0); Mean Corpuscular Volume 99.1 fL (80.0-94.0); Nucleated Red Blood Cells % 0 % (-); Platelet Count 315 10^3/uL (130-400); Red Cell Dist. Width 15.1 % (11.5-14.5); Reticulocyte Count 8.2 % (0.4-2.8)
[2025-07-15 11:10] LABS: Blood Urea Nitrogen 32 mg/dl (9-20); Calcium 8.9 mg/dl (8.4-10.2); Carbon Dioxide 26 mmol/L (22-30); Chloride 102 mmol/L (98-107); Glucose 95 mg/dl (70-99); Potassium 4.4 mmol/L (3.5-5.1); Sodium 132 mmol/L (135-145); eGFR > 60.00
== END ==
LOC: REG 09:29
PROVIDERS: ATTENDING PHYSICIAN Internal Medicine Hematology & Oncology; FAMILY PHYSICIAN Internal Medicine; REFERRING PHYSICIAN Specialist
DX: D59.9 Acquired hemolytic anemia, unspecified (principal); L12.9 Pemphigoid, unspecified
CPT/HCPCS: 36415; 80048; 82247; 82248; 83010; 85025; 85045

== ENCOUNTER → 2025-07-22 09:53 | Outpatient (REF) | payer MEDICARE, BC, SELFPAY ==
[2025-07-22 10:52] LABS: Hematocrit 33.4 % (39.0-52.0); Hemoglobin 10.5 g/dL (13.0-18.0); Mean Corp Hgb Conc. 31.4 g/dL (33.0-37.0); Mean Corpuscular Volume 99.1 fL (80.0-94.0); Nucleated Red Blood Cells % 0 % (-); Platelet Count 317 10^3/uL (130-400); Red Cell Dist. Width 15.6 % (11.5-14.5); Reticulocyte Count 9.3 % (0.4-2.8)
[2025-07-22 11:33] LABS: Blood Urea Nitrogen 29 mg/dl (9-20); Calcium 9.2 mg/dl (8.4-10.2); Carbon Dioxide 25 mmol/L (22-30); Chloride 101 mmol/L (98-107); Glucose 101 mg/dl (70-99); Potassium 4.8 mmol/L (3.5-5.1); Sodium 132 mmol/L (135-145); eGFR > 60.00
== END ==
LOC: REG 09:53
PROVIDERS: ATTENDING PHYSICIAN Internal Medicine Hematology & Oncology; FAMILY PHYSICIAN Internal Medicine; REFERRING PHYSICIAN Specialist
DX: D59.9 Acquired hemolytic anemia, unspecified (principal); L12.9 Pemphigoid, unspecified
CPT/HCPCS: 36415; 80048; 82247; 82248; 83010; 85025; 85045

== ENCOUNTER → 2025-07-29 09:44 | Outpatient (REF) | payer MEDICARE, BC, SELFPAY ==
[2025-07-29 10:56] LABS: Hematocrit 32.6 % (39.0-52.0); Hemoglobin 10.0 g/dL (13.0-18.0); Mean Corp Hgb Conc. 30.7 g/dL (33.0-37.0); Mean Corpuscular Volume 102.5 fL (80.0-94.0); Nucleated Red Blood Cells % 0 % (-); Platelet Count 334 10^3/uL (130-400); Red Cell Dist. Width 15.8 % (11.5-14.5); Reticulocyte Count 10.0 % (0.4-2.8)
[2025-07-29 11:11] LABS: Blood Urea Nitrogen 28 mg/dl (9-20); Calcium 8.8 mg/dl (8.4-10.2); Carbon Dioxide 27 mmol/L (22-30); Chloride 101 mmol/L (98-107); Glucose 103 mg/dl (70-99); Potassium 4.6 mmol/L (3.5-5.1); Sodium 134 mmol/L (135-145); eGFR > 60.00
== END ==
LOC: REG 09:44
PROVIDERS: ATTENDING PHYSICIAN Internal Medicine Hematology & Oncology; FAMILY PHYSICIAN Internal Medicine; OTHER PHYSICIAN Specialist
DX: D59.9 Acquired hemolytic anemia, unspecified (principal); L12.9 Pemphigoid, unspecified
CPT/HCPCS: 36415; 80048; 82247; 82248; 83010; 85025; 85045

== ENCOUNTER → 2025-08-05 09:37 | Outpatient (REF) | payer MEDICARE, BC, SELFPAY ==
[2025-08-05 10:58] LABS: Hematocrit 31.1 % (39.0-52.0); Hemoglobin 9.6 g/dL (13.0-18.0); Mean Corp Hgb Conc. 30.9 g/dL (33.0-37.0); Mean Corpuscular Volume 98.7 fL (80.0-94.0); Nucleated Red Blood Cells % 0 % (-); Platelet Count 340 10^3/uL (130-400); Red Cell Dist. Width 16.0 % (11.5-14.5); Reticulocyte Count 10.5 % (0.4-2.8)
[2025-08-05 11:22] LABS: Blood Urea Nitrogen 28 mg/dl (9-20); Calcium 8.7 mg/dl (8.4-10.2); Carbon Dioxide 28 mmol/L (22-30); Chloride 102 mmol/L (98-107); Glucose 103 mg/dl (70-99); Potassium 4.5 mmol/L (3.5-5.1); Sodium 132 mmol/L (135-145); eGFR > 60.00
== END ==
LOC: REG 09:37
PROVIDERS: ATTENDING PHYSICIAN Internal Medicine Hematology & Oncology; FAMILY PHYSICIAN Internal Medicine
DX: D59.9 Acquired hemolytic anemia, unspecified (principal); L12.9 Pemphigoid, unspecified
CPT/HCPCS: 36415; 80048; 82247; 82248; 83010; 85025; 85045

== ENCOUNTER → 2025-08-12 09:15 | Outpatient (REF) | payer MEDICARE, BC, SELFPAY ==
[2025-08-12 10:24] LABS: Hematocrit 31.4 % (39.0-52.0); Hemoglobin 9.9 g/dL (13.0-18.0); Mean Corp Hgb Conc. 31.5 g/dL (33.0-37.0); Mean Corpuscular Volume 100.3 fL (80.0-94.0); Nucleated Red Blood Cells % 0 % (-); Platelet Count 337 10^3/uL (130-400); Red Cell Dist. Width 16.6 % (11.5-14.5); Reticulocyte Count 10.9 % (0.4-2.8)
[2025-08-12 11:19] LABS: Blood Urea Nitrogen 31 mg/dl (9-20); Calcium 8.8 mg/dl (8.4-10.2); Carbon Dioxide 25 mmol/L (22-30); Chloride 103 mmol/L (98-107); Glucose 98 mg/dl (70-99); Potassium 4.6 mmol/L (3.5-5.1); Sodium 133 mmol/L (135-145); eGFR > 60.00
== END ==
LOC: REG 09:15
PROVIDERS: ATTENDING PHYSICIAN Internal Medicine Hematology & Oncology; FAMILY PHYSICIAN Internal Medicine
DX: D59.9 Acquired hemolytic anemia, unspecified (principal); L12.9 Pemphigoid, unspecified
CPT/HCPCS: 36415; 80048; 82247; 82248; 83010; 85025; 85045

== ENCOUNTER → 2025-08-19 09:30 | Outpatient (REF) | payer MEDICARE, BC, SELFPAY ==
[2025-08-19 10:32] LABS: Hematocrit 30.9 % (39.0-52.0); Hemoglobin 9.7 g/dL (13.0-18.0); Mean Corp Hgb Conc. 31.4 g/dL (33.0-37.0); Mean Corpuscular Volume 98.1 fL (80.0-94.0); Nucleated Red Blood Cells % 0 % (-); Platelet Count 332 10^3/uL (130-400); Red Cell Dist. Width 16.7 % (11.5-14.5); Reticulocyte Count 10.4 % (0.4-2.8)
[2025-08-19 11:20] LABS: Blood Urea Nitrogen 30 mg/dl (9-20); Calcium 8.7 mg/dl (8.4-10.2); Carbon Dioxide 24 mmol/L (22-30); Chloride 100 mmol/L (98-107); Glucose 101 mg/dl (70-99); Potassium 4.5 mmol/L (3.5-5.1); Sodium 131 mmol/L (135-145); eGFR > 60.00
== END ==
LOC: REG 09:30
PROVIDERS: ATTENDING PHYSICIAN Internal Medicine Hematology & Oncology; FAMILY PHYSICIAN Internal Medicine; REFERRING PHYSICIAN Specialist
DX: D59.9 Acquired hemolytic anemia, unspecified (principal); L12.9 Pemphigoid, unspecified
CPT/HCPCS: 36415; 80048; 82247; 82248; 83010; 85025; 85045

== ENCOUNTER → 2025-08-26 09:28 | Outpatient (REF) | payer MEDICARE, BC, SELFPAY ==
[2025-08-26 09:54] LABS: Hematocrit 29.6 % (39.0-52.0); Hemoglobin 9.3 g/dL (13.0-18.0); Mean Corp Hgb Conc. 31.4 g/dL (33.0-37.0); Mean Corpuscular Volume 98.0 fL (80.0-94.0); Nucleated Red Blood Cells % 0 % (-); Platelet Count 334 10^3/uL (130-400); Red Cell Dist. Width 17.1 % (11.5-14.5); Reticulocyte Count 11.7 % (0.4-2.8)
[2025-08-26 10:40] LABS: Blood Urea Nitrogen 29 mg/dl (9-20); Calcium 8.8 mg/dl (8.4-10.2); Carbon Dioxide 24 mmol/L (22-30); Chloride 102 mmol/L (98-107); Glucose 97 mg/dl (70-99); Potassium 4.7 mmol/L (3.5-5.1); Sodium 133 mmol/L (135-145); eGFR > 60.00
== END ==
LOC: REG 09:28
PROVIDERS: ATTENDING PHYSICIAN Internal Medicine Hematology & Oncology; FAMILY PHYSICIAN Internal Medicine; REFERRING PHYSICIAN Specialist
DX: D59.9 Acquired hemolytic anemia, unspecified (principal); L12.9 Pemphigoid, unspecified
CPT/HCPCS: 36415; 80048; 82247; 82248; 83010; 85025; 85045

== ENCOUNTER → 2025-09-02 09:38 | Outpatient (REF) | payer MEDICARE, BC, SELFPAY ==
[2025-09-02 10:44] LABS: Hematocrit 31.8 % (39.0-52.0); Hemoglobin 9.9 g/dL (13.0-18.0); Mean Corp Hgb Conc. 31.1 g/dL (33.0-37.0); Mean Corpuscular Volume 102.3 fL (80.0-94.0); Nucleated Red Blood Cells % 0.3 % (-); Platelet Count 337 10^3/uL (130-400); Red Cell Dist. Width 17.8 % (11.5-14.5); Reticulocyte Count 11.9 % (0.4-2.8)
[2025-09-02 11:21] LABS: Blood Urea Nitrogen 29 mg/dl (9-20); Calcium 8.9 mg/dl (8.4-10.2); Carbon Dioxide 25 mmol/L (22-30); Chloride 102 mmol/L (98-107); Glucose 96 mg/dl (70-99); Potassium 4.6 mmol/L (3.5-5.1); Sodium 134 mmol/L (135-145); eGFR > 60.00
== END ==
LOC: REG 09:38
PROVIDERS: ATTENDING PHYSICIAN Internal Medicine Hematology & Oncology; FAMILY PHYSICIAN Internal Medicine
DX: D59.9 Acquired hemolytic anemia, unspecified (principal); L12.9 Pemphigoid, unspecified
CPT/HCPCS: 36415; 80048; 82247; 82248; 83010; 85025; 85045